=== PATIENT | female | born 1950 | race Caucasian/White ===

== ENCOUNTER 2019-02-03 21:19 | Inpatient (IN) ==
[2019-02-04] MEDS ORDERED: CARBOHYDRATES FOR HYPOGLYCEMIA PO PRN (00:16)
[2019-02-04] MEDS ORDERED: MAGNESIUM HYDROXIDE SUSP 30 ML UDC PO PRN (00:16)
[2019-02-04] MEDS ORDERED: GLUCAGON FOR INJ 1 MG VIAL SQ PRN (00:16)
[2019-02-04] MEDS ORDERED: NITROGLYCERIN SL 0.4 MG/TAB TAB SL PRN (00:16)
[2019-02-04] MEDS ORDERED: GLUCOSE 10 TABS/TUBE PO PRN (00:16)
[2019-02-04] MEDS ORDERED: DEXTROSE 50% 50 ML SYRINGE IV PRN (00:16)
[2019-02-04] MEDS ORDERED: POLYETHYLENE (MIRALAX) 17 GM PACK PO PRN (00:16)
[2019-02-04] MEDS ORDERED: ALUMINUM/MAGNESIUM SUSP 30 ML UDC PO PRN (00:16)
[2019-02-04] MEDS ORDERED: GLUCOSE 40% GEL 15 GM TUBE PO PRN (00:16)
[2019-02-04] MEDS ORDERED: ONDANSETRON INJ 2 MG/ML 2 ML VIAL IV PRN (00:16)
[2019-02-04 00:54] LABS: Hematocrit (blood only) 30.1 % (37-47); Hemoglobin 10.1 g/dL (12.0-16.0); Mean Corpuscular Hemoglobin 32.3 pg (25-34); Mean Corpuscular Volume 96.2 fL (80-100); Mean Platelet Volume 10.2 fL (7.4-10.4); Platelet Count 107 K/uL (130-400); RDW Coefficient of Variation 12.7 % (11.5-14.5); RDW Standard Deviation 44.4 fL (36.4-46.3); Red Blood Count 3.13 M/uL (4.2-5.4)
[2019-02-04 00:58] LABS: Mean Corpuscular Hgb Conc 33.6 g/dL (32-36)
[2019-02-04] MEDS ORDERED: PIPERACILL/TAZOBAC CONSULT ACTIVE PRN (01:17)
[2019-02-04] MEDS ORDERED: VANCOMYCIN CONSULT ACTIVE PRN (01:17)
[2019-02-04] MEDS ORDERED: PIPERACILLIN/TAZOBACTAM 4.5 GM in DEXTROSE 5% 100 ML IV ONE (01:17)
[2019-02-04 01:24] LABS: Immature Granulocytes # (auto) 0.06 K/uL (0.00-0.02); Lymphocytes # (auto) 1.53 K/uL (1.2-3.4); Lymphocytes % (auto) 24.3 %; Monocytes # (auto) 0.61 K/uL (0.11-0.59); Monocytes % (auto) 9.7 %
[2019-02-04 01:29] LABS: Albumin Globulin Ratio 0.7 (0.9-2); Albumin Level 3.1 gm/dl (3.4-5.0); BUN Creatinine Ratio 17.9 (10-20); Bilirubin,Total 0.5 mg/dl (0.2-1); Calcium 8.2 mg/dl (8.5-10.1); Creatinine Clr Calc Pharmacy 24.1 ml/min; Est GFR (African American) 24.3; Globulin 4.7 gm/dl (2.5-4.0); Magnesium 1.9 mg/dl (1.8-2.4); Total Protein 7.8 gm/dl (6.4-8.2); Troponin I 1.2 ng/ml (0-0.045)
[2019-02-04] MEDS ORDERED: NovoLIN-R INSULIN PER UNIT CHARGE IV STA ×2 (01:41→04:11)
[2019-02-04 01:42] LABS: Beta-Hydroxybutyrate 4.65 mg/dl (0.2-2.81)
[2019-02-04] MEDS ORDERED: VANCOMYCIN HCL 1,500 MG in SODIUM CHLORIDE 0.9% 500 ML IV ONE (01:45)
[2019-02-04] MEDS ORDERED: CALCIUM GLUCONATE 10% 1,000 MG in SODIUM CHLORIDE 0.9% 50 ML IV STA (01:49)
[2019-02-04] MEDS ORDERED: SODIUM CHLORIDE 0.9% 1000ML 1,000 ML IV SCH (02:00)
[2019-02-04] MEDS ORDERED: INSULIN HUMAN REGULAR PER UNIT 8 UNITS in SYRINGE 7.92 ML IV ONE ×2 (02:00→04:15)
[2019-02-04 02:10] LABS: iSTAT Allen Test Pass; iSTAT Arterial Blood Gas HCO3 20 meg/L (19-24); iSTAT Arterial Blood Gas pCO2 37 mmHg (35-46); iSTAT Arterial Blood Gas pH 7.33 (7.35-7.45); iSTAT Arterial Blood Gas pO2 56 mmHg (80-95); iSTAT Carbon Dioxide 21 mEq/l (24-31); iSTAT Site R Radial
[2019-02-04 02:41] LABS: Calcium 8.3 mg/dl (8.5-10.1); Est GFR (African American) 24.2; Est GFR (Non-African American) 20.9; Potassium 5.6 mmol/L (3.5-5.1)
[2019-02-04 02:43] LABS: Troponin I 1.23 ng/ml (0-0.045)
[2019-02-04 02:57] LABS: Beta-Hydroxybutyrate 5.54 mg/dl (0.2-2.81)
[2019-02-04] MEDS ORDERED: HALOPERIDOL LACTATE 5 MG/ML 1 ML VIAL IM STA (04:11)
[2019-02-04] MEDS ORDERED: INFLUENZA ADMINISTRATION CHARGE ONE (06:00)
[2019-02-04] MEDS ORDERED: PNEUMOCOCCAL ADMINISTRATION CHARGE ONE (06:00)
[2019-02-04] MEDS ORDERED: PNEUMOCOCCAL POLYSACCHARIDES 25 MCG/0.5 ML VIAL/SYR IM ONE (06:00)
[2019-02-04] MEDS ORDERED: INFLUENZA VACCINE HIGH DOSE 65+ 0.5 ML SYR IM ONE (06:00)
[2019-02-04 06:10] LABS: Estimated Average Glucose 171 mg/dl; Hemoglobin A1C 7.6 % (4.5-5.6)
--- NOTE | 2019-02-04 06:18 | History & Physical Report ---
Date of Service February 04, 2019 Assessment & Plan (1) Pneumonia involving right lung: Pneumonia involving right middle and right lower lobe/hypoxia- Place on vancomycin IV per pharmacokinetic monitoring. Place on Zosyn 4.5 g IV every 8 hours. Duonebs every 4 hours while awake and every 2 hours when necessary. ABG: pH 7.33, PCO2 37, PO2 56 and O2 saturation 87%, on 15 L mask. O2 saturation on ABG is consistent with measured pulse ox. Patient is changed to BiPAP 03/13/1951 percent, with pulse ox increased to 95%. Taper as symptoms improve. Present on Admission?: Yes (2) NSTEMI (non-ST elevated myocardial infarction): NSTEMI/ischemic cardiomyopathy history/hypertension- Troponin from [facility] was reported at 0.126. Entrance troponin at [facility] has increased to 1.230. The patient will be admitted to telemetry for serial cardiac enzymes, serial EKG's, cardiac rhythm monitoring and a 2-D echocardiogram with Dopplers. Unclear how much of this is secondary to hypoxia or a primary event. Hold amlodipine 5 mg daily. Continue lisinopril 5 mg p.o. daily. Increase metoprolol succinate from 25 mg p.o. twice daily to 50 mg p.o. twice daily Present on Admission?: Yes (3) Hypertension: See above Present on Admission?: Yes (4) Ischemic cardiomyopathy: See above Present on Admission?: Yes (5) Hyperglycemia due to type 2 diabetes mellitus: Glucose was 443 upon admission, and following successive regular insulin IV was decreased to 231. Patient will be placed on a heart healthy diabetic diet. Hold NPH and 70/30 that the patient usually uses. Place on Accu-Cheks before meals and at bedtime with NovoLog coverage per scale. Present on Admission?: Yes (6) Chronic kidney disease, stage 3: Creatinine stable 2.3 range, follow serially. Present on Admission?: Yes (7) Hyperkalemia: Potassium 6.0 upon admission laboratories. Given regular insulin 8 mg IV, and calcium gluconate 1 g IV, with follow-up with follow-up potassium at 5.6. Patient be given additional 8 units of regular insulin IV, normal saline at 100 mils per hour, and repeat laboratories later on this morning. Present on Admission?: Yes (8) GERD (gastroesophageal reflux disease): Continue famotidine 20 mg daily Present on Admission?: Yes (9) Anemia: Hemoccult all stools, follow serial laboratories. Present on Admission?: Yes (10) Anxiety and depression: Continue paroxetine 40 mg daily, and gabapentin 100 mg p.o. daily Present on Admission?: Yes (11) Hyperlipidemia LDL goal <70: Continue lovastatin 40 mg p.o. daily. Check a fasting lipid panel Present on Admission?: Yes History of Present Illness Chief Complaint: The patient initially presented to the emergency department at [facility] with complaint of generalized weakness and headache x4 days, and decreased oral intake both liquids and solids. Primary Care Provider: Steve Pinto MD The patient is a 68-year-old female, seen in transfer from [facility] emergency department, where she presented with the above symptoms. Work-up at that time included elevated glucose of 456, elevated troponin of 0.126, and a mild level of hypoxia requiring 2 L of oxygen to maintain saturation of 95%. When patient was seen at arrival at [facility], she was on 15 L mask, with pulse ox in the 88% range. She was somewhat anxious, but overall comfortable. Initial admission orders were placed, and stat laboratories including CBC with differential, chemistry profile, magnesium level, and troponin level were ordered. Studies including stat chest x-ray, and EKG were also ordered. Allergies Allergy/AdvReac Type Severity Reaction Status Date / Time No Known Allergies Allergy Unverified 09/12/16 11:36 Home Medications Home Medications Medication Instructions Recorded Confirmed Type amlodipine 5 mg PO DAILY 02/04/19 02/04/19 History benzonatate 100 mg PO DAILY 02/04/19 02/04/19 History ergocalciferol (vitamin D2) 50,000 unit PO DAILY 02/04/19 02/04/19 History famotidine 20 mg PO DAILY 02/04/19 02/04/19 History ferrous sulfate 325 mg PO DAILY 02/04/19 02/04/19 History furosemide 20 mg PO DAILY 02/04/19 02/04/19 History gabapentin 100 mg PO DAILY 02/04/19 02/04/19 History insulin NPH and regular human See Rx Instructions .ROUTE .COMPLEX 02/04/19 History [Novolin 70/30 U-100 Insulin] lisinopril 5 mg PO DAILY 02/04/19 02/04/19 History lovastatin 40 mg PO DAILY 02/04/19 02/04/19 History metoprolol succinate 25 mg PO BID 02/04/19 02/04/19 History paroxetine HCl 40 mg PO DAILY 02/04/19 02/04/19 History Past Med/Surg History Social History Preferred Language: Chinese Communication Ability: Effective 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 Beliefs That Will Affect Care: None Current Living Situation: Family Other Information That Helps Us Care for You: No Feels Safe at Home: Yes Safety Concerns: Feels Safe At This Time Smoking Status: Never smoker Hx Alcohol Use: No Hx Substance Use: No Review of Systems Review of Systems: The patient denies chest pain, palpitations, cough, lower extremity swelling, sore throat, fevers, chills, sweats, vomiting, diarrhea , constipation, abdominal pain, pelvic pain, blood in urine or stool, dysuria, urinary frequency or urgency, lightheadedness, dizziness, headache, memory loss, loss of consciousness, rash, abnormal bruising or bleeding, imbalance, focal weakness, numbness or tingling in arms or legs, generalized arthralgias or myalgias, back or neck pain, or night sweats. The review of systems is otherwise negative other than for that already noted above, and at least 10 systems have been reviewed. Physical Exam Physical Exam: The patient is awake, alert and oriented 3, normocephalic and atraumatic, lying in bed and in mild respiratory distress. HEENT--PERRL, EOMI, mucous membranes and oropharynx dry. Neck--supple. No JVD. No bruits. Thyroid normal, trachea midline, no adenopathy. Heart--normal S1 and S2. No murmurs, rubs or gallops. Lungs--decreased breath sounds right base. Mild respiratory distress, no accessory muscle use. Abdomen--normal bowel sounds and soft. Nontender. Nondistended, no hernias or masses, no organomegaly. Extremities--no cyanosis or clubbing. No edema. Dermatologic--normal skin turgor, normal color, no rash. Neurologic--cranial nerves II through XII grossly intact. Rheumatologic--normal range of motion. Psychiatric--mildly anxious Results & Data Vital Signs (Past 12 Hours) Vital Signs Temp Pulse Pulse Resp BP Pulse Ox 02/04/19 03:57 98.2 F 104 H 22 129/83 95 02/04/19 02:49 102 H 02/04/19 02:05 98 H 19 94 02/04/19 00:29 98.8 F 106 H 23 127/90 88 L Laboratory Results Laboratory Results WBC 6.30 K/uL (4.8-10.8) 02/04/19 00:45 RBC 3.13 M/uL (4.2-5.4) L 02/04/19 00:45 Hgb 10.1 g/dL (12.0-16.0) L 02/04/19 00:45 Hct 30.1 % (37-47) L 02/04/19 00:45 MCV 96.2 fL (80-100) 02/04/19 00:45 MCH 32.3 pg (25-34) 02/04/19 00:45 MCHC 33.6 g/dL (32-36) 02/04/19 00:45 RDW Std Deviation 44.4 fL (36.4-46.3) 02/04/19 00:45 RDW Coeff of Nevaeh 12.7 % (11.5-14.5) 02/04/19 00:45 Plt Count 107 K/uL (130-400) L 02/04/19 00:45 MPV 10.2 fL (7.4-10.4) 02/04/19 00:45 Immature Gran % (Auto) 1.0 % 02/04/19 00:45 Neut % (Auto) 65.0 % 02/04/19 00:45 Lymph % (Auto) 24.3 % 02/04/19 00:45 Real % (Auto) 9.7 % 02/04/19 00:45 Eos % (Auto) 0.0 % 02/04/19 00:45 Baso % (Auto) 0.0 % 02/04/19 00:45 Immature Gran # (Auto) 0.06 K/uL (0.00-0.02) H 02/04/19 00:45 Neut # (Auto) 4.10 K/uL (1.4-6.5) 02/04/19 00:45 Lymph # (Auto) 1.53 K/uL (1.2-3.4) 02/04/19 00:45 Real # (Auto) 0.61 K/uL (0.11-0.59) H 02/04/19 00:45 Eos # (Auto) 0.00 K/uL (0-0.5) 02/04/19 00:45 Baso # (Auto) 0.00 K/uL (0-0.2) 02/04/19 00:45 Sample Site R Radial 02/04/19 02:00 POC pH 7.33 (7.35-7.45) L 02/04/19 02:00 POC pCO2 37 mmHg (35-46) 02/04/19 02:00 POC pO2 56 mmHg (80-95) L 02/04/19 02:00 POC HCO3 20 lyndsay/L (19-24) 02/04/19 02:00 POC Total CO2 21 mEq/l (24-31) L 02/04/19 02:00 POC Base Excess -6.0 lyndsay/L (-9-1.8) 02/04/19 02:00 POC ABG O2 Sat 87.0 % (90-95) L 02/04/19 02:00 Inderjit Test Pass 02/04/19 02:00 O2 Delivery Device Other 02/04/19 02:00 Sodium 132 mmol/L (136-145) L 02/04/19 01:57 Potassium 5.6 mmol/L (3.5-5.1) H 02/04/19 01:57 Chloride 102 mmol/L (98-107) 02/04/19 01:57 Carbon Dioxide 21 mmol/L (21-32) 02/04/19 01:57 Anion Gap 9.0 (3-11) 02/04/19 01:57 BUN 42 mg/dl (7-18) H 02/04/19 01:57 Creatinine 2.31 mg/dl (0.6-1.2) H 02/04/19 01:57 Est Cr Clr Drug Dosing 24.0 ml/min 02/04/19 01:57 Est GFR ( Amer) 24.2 02/04/19 01:57 Est GFR (Non-Af Amer) 20.9 02/04/19 01:57 BUN/Creatinine Ratio 18.0 (10-20) 02/04/19 01:57 Glucose 443 mg/dl (70-99) H* 02/04/19 01:57 POC Glucose 233 (70-99) H 02/04/19 05:34 Estimat Average Glucose 171 mg/dl 02/04/19 01:57 Hemoglobin A1c 7.6 % (4.5-5.6) H 02/04/19 01:57 Lactate 1.8 mmol/L (0.4-2.0) 02/04/19 01:57 Calcium 8.3 mg/dl (8.5-10.1) L 02/04/19 01:57 Magnesium 1.9 mg/dl (1.8-2.4) 02/04/19 00:45 Total Bilirubin 0.5 mg/dl (0.2-1) 02/04/19 00:45 AST 271 U/L (15-37) H 02/04/19 00:45 ALT 193 U/L (12-78) H 02/04/19 00:45 Alkaline Phosphatase 127 U/L (45-117) H 02/04/19 00:45 Troponin I 1.230 ng/ml (0-0.045) H* 02/04/19 01:57 Total Protein 7.8 gm/dl (6.4-8.2) 02/04/19 00:45 Albumin 3.1 gm/dl (3.4-5.0) L 02/04/19 00:45 Globulin 4.7 gm/dl (2.5-4.0) H 02/04/19 00:45 Albumin/Globulin Ratio 0.7 (0.9-2) L 02/04/19 00:45 Beta-Hydroxybutyric Acd 5.54 mg/dl (0.2-2.81) H 02/04/19 01:57 Hepatitis C Ab Screen Neg (Neg) 02/04/19 01:57 Code Status & VTE Plan Code Status Full code VTE Prophylaxis Plan VTE Prophylaxis will be ordered: Yes PG Care Time/CCT Total # of Minutes Spent Total Time Spent with Patient: Total time spent is greater than 50% in coordination of care (as documented) at patient's floor/unit and/or counseling patient:
[2019-02-04 06:25] LABS: BUN Creatinine Ratio 19.4 (10-20); Calcium 8.3 mg/dl (8.5-10.1); Creatinine Clr Calc Pharmacy 26.8 ml/min; Est GFR (African American) 27.6; Est GFR (Non-African American) 23.8; Potassium 4.1 mmol/L (3.5-5.1); Troponin I 1.48 ng/ml (0-0.045)
--- NOTE | 2019-02-04 06:55 | XRay Report ---
XR chest 1V portable CLINICAL HISTORY: hypoxia COMPARISON STUDY: Chest radiograph September 13, 2016 FINDINGS: Right subclavian pacer/AICD is in place. There is no pneumothorax. There are suspected smal l bilateral pleural effusions. Interstitial thickening indicates pulmonary edema. Bibasilar opacities , greater on the right are noted. Cardiomediastinal silhouette is stable. IMPRESSION: 1. Mild interstitial pulmonary edema. 2. Small bilateral pleural fusions with bibasilar opacities, right greater than left. Radiographic fo llow-up is recommended. Electronically signed by: Josr Gaines M.D. 02/04/2019 6:54 AM
[2019-02-04] MEDS: ALBUT/IPRATROP 3MG/0.5MG NEB 3 ML VIAL NEB SCH ×4 (07:02→18:39)
[2019-02-04] MEDS ORDERED: PIPERACILLIN/TAZOBACTAM 3.375 GM in DEXTROSE 5% 100 ML IV SCH (08:00)
[2019-02-04] MEDS ORDERED: VANCOMYCIN HCL 1,000 MG in SODIUM CHLORIDE 0.9% 250 ML IV SCH (09:00)
[2019-02-04] MEDS: INSULIN ASPART 100 UNITS/ML 3 ML PEN SC SCH ×4 (09:50→20:42)
[2019-02-04] MEDS: lisinopriL 5 MG TAB PO SCH (09:56)
[2019-02-04] MEDS: ASPIRIN 81 MG ECTAB PO SCH (09:56)
[2019-02-04] MEDS: METOPROLOL SUCC 25MG EXT REL TAB PO SCH ×2 (09:56→20:42)
[2019-02-04] MEDS: LOVASTATIN 20 MG TAB PO SCH (09:56)
[2019-02-04] MEDS: FERROUS SULFATE 325 MG TAB PO SCH (10:01)
[2019-02-04] MEDS: FAMOTIDINE 20 MG TAB PO SCH (10:01)
[2019-02-04] MEDS: PARoxetine HCl 20 MG TAB PO SCH (10:01)
[2019-02-04] MEDS: GABAPENTIN 100 MG CAP PO SCH (10:01)
--- NOTE | 2019-02-04 11:17 | Cardiology Consultation ---
Date of Consultation February 04, 2019 Assessment & Plan (1) Acute on chronic HFrEF (heart failure with reduced ejection fraction): Per review of outpatient records, the patient has stage IV chronic kidney disease at baseline, labs performed as an outpatient on 12/04/2018 revealed creatinine of 1.8, calculated GFR of 29.2. On admission creatinine was 2.3, and has slightly improved to 2.07. She also has a chronic anemia, hemoglobin was 11.4 on 12/04/2018, and 10.1 as of today. She is ill in appearance, and unable to provide adequate history regarding what brought her to the hospital. She is hypoxic with pulse oximetry in the 88% range on high flow oxygen. She has no fever, no leukocytosis. I attempted to call the patient's daughter, Amalia, but no one answered.'s of the details regarding her recent illness are very ill-defined. I am not certain what her baseline mental status is. Her echocardiogram images from first and this morning were reviewed on a preliminary basis. Severe left ventricular systolic function is noted. At least mild aortic valve stenosis is present, but I need to look at the calculations in more detail on the appropriate workstation to make the determination of the severity of the aortic stenosis. At this time, I recommend stopping her IV fluids, and proceeding with a trial of furosemide for concerns that her hypoxia may very well be due to acute on chronic systolic heart failure with volume overload based on chest x-ray and clinical presentation. (2) NSTEMI (non-ST elevated myocardial infarction): Patient presented with a mild troponin elevation of 1.2, and this is trended up to 1.48. She denies any angina at present. Her EKG is not suggestive of acute intracoronary plaque rupture, and this could very well be demand ischemia. Given her baseline anemia, I am going to hold off on unfractionated heparin infusion at present. (3) Pneumonia involving right lung: Continue Zosyn, check procalcitonin level. (4) Delirium, acute: Is difficult to determine what her baseline mental status is at present, unable to find family members at present to get a better sense of how she has been doing. We will continue to follow. (5) Chronic renal disease, stage IV: Monitor kidney function. History of Present Illness Attending Physician: Gerber Montano, DO History of Present Illness Radha Ribera is a 68 year old female seen in cardiology consultation per the request of Dr Montano of the [facility] hospitalist service for the evaluation of shortness of breath, non-ST segment elevation myocardial infarction, and history of ischemic cardiomyopathy. The patient's primary rock contractor is Dr. Charles of our practice. Her most recent outpatient follow-up visit had been in August 2018 at which time stable cardiac signs and symptoms were noted. Patient was ill in appearance when I had seen and examined her in room 207. She was being transitioned from BiPAP to a high flow oxygen mask 8 L/min. She looked tired. She was able to provide a history about what is been going on recently. She denies any chest discomfort. She states that she lives with her daughter. Review of records, it sounds like the patient presented with generalized illness including headache for several days. She has tentatively been diagnosed with respiratory insufficiency and pneumonia. Past Cardiac History: 1. Presumed ischemic cardiomyopathy, had undergone nuclear stress test on 03/27/2016 revealing fixed anterior, anteroseptal perfusion defect consistent with scar, and calculated ejection fraction of 33%. 2. She subsequently underwent implantation of a single-chamber [employer] AICD for primary prevention of sudden cardiac in September 2016. 3. Most recent echocardiogram prior today have been performed at [facility] on 06/16/2018, the report describes severe global hypokinesis with an ejection fraction of 30%, mild aortic valve stenosis The device was most recently interrogated as an outpatient on 11/27/2018 with normal function -Per outpatient chart, patient had reportedly declined cardiac catheterization at the time of work-up of her cardiomyopathy. She has been stable on medication therapy for several years. Allergies Allergy/AdvReac Type Severity Reaction Status Date / Time No Known Allergies Allergy Unverified 09/12/16 11:36 Home Medications Home Medications Medication Instructions Recorded Confirmed Type amlodipine 5 mg PO DAILY 02/04/19 02/04/19 History benzonatate 100 mg PO DAILY 02/04/19 02/04/19 History ergocalciferol (vitamin D2) 50,000 unit PO DAILY 02/04/19 02/04/19 History famotidine 20 mg PO DAILY 02/04/19 02/04/19 History ferrous sulfate 325 mg PO DAILY 02/04/19 02/04/19 History furosemide 20 mg PO DAILY 02/04/19 02/04/19 History gabapentin 100 mg PO DAILY 02/04/19 02/04/19 History insulin NPH and regular human See Rx Instructions .ROUTE .COMPLEX 02/04/19 History [Novolin 70/30 U-100 Insulin] lisinopril 5 mg PO DAILY 02/04/19 02/04/19 History lovastatin 40 mg PO DAILY 02/04/19 02/04/19 History metoprolol succinate 25 mg PO BID 02/04/19 02/04/19 History paroxetine HCl 40 mg PO DAILY 02/04/19 02/04/19 History Patient History Social History Preferred Language: Malawian Communication Ability: Impaired Pre Parole Counseling Aide Required: No Beliefs That Will Affect Care: None Current Living Situation: Family Other Information That Helps Us Care for You: No Feels Safe at Home: Yes Safety Concerns: Feels Safe At This Time Smoking Status: Never smoker Hx Alcohol Use: No Hx Substance Use: No Review of Systems Review of Systems: Unobtainable due to reduced consciousness Physical Exam Physical Exam: Temp Pulse Resp BP Pulse Ox 36.5 C 102 H 18 139/72 88 L 02/04/19 07:51 02/04/19 11:00 02/04/19 11:00 02/04/19 07:51 02/04/19 11:00 Constitutional: + ill appearing Respiratory: Auscultation: + diminished lung sounds (Coarse breath sounds bilaterally at the bases); no crackles, no rales and no rhonchi Cardiovascular: Rate/Rhythm: regular rate Heart Sounds: + murmur (I/ systolic murmur) Vessels: no JVD Extremities: no edema Gastrointestinal (Abdomen): normal bowel sounds, soft, nontender, no hepatosplenomegaly Neurologic: Confused, unable to provide history, follows commands and moves all 4 extremities Results & Data Vital Signs (Past 12 Hours) Vital Signs Temp Pulse Pulse Resp BP Pulse Ox 02/04/19 11:00 102 H 18 88 L 02/04/19 07:51 36.5 C 108 H 33 H 139/72 89 L 02/04/19 07:06 102 H 20 97 02/04/19 07:03 102 H 20 97 02/04/19 03:57 36.8 C 104 H 22 129/83 95 02/04/19 02:49 102 H 02/04/19 02:05 98 H 19 94 02/04/19 00:29 37.1 C 106 H 23 127/90 88 L Laboratory Results Cardiac Enzymes 02/04/19 02/04/19 02/04/19 Range/Units 00:45 01:57 05:27 AST 271 H (15-37) U/L Troponin I 1.200 H* 1.230 H* 1.480 H* (0-0.045) ng/ml CBC 02/04/19 Range/Units 00:45 WBC 6.30 (4.8-10.8) K/uL RBC 3.13 L (4.2-5.4) M/uL Hgb 10.1 L (12.0-16.0) g/dL Hct 30.1 L (37-47) % Plt Count 107 L (130-400) K/uL Neut # (Auto) 4.10 (1.4-6.5) K/uL Lymph # (Auto) 1.53 (1.2-3.4) K/uL [place] # (Auto) 0.61 H (0.11-0.59) K/uL Eos # (Auto) 0.00 (0-0.5) K/uL Baso # (Auto) 0.00 (0-0.2) K/uL Comprehensive Metabolic Panel 02/04/19 02/04/19 02/04/19 Range/Units 00:45 01:57 05:27 Sodium 134 L 132 L 137 (136-145) mmol/L Potassium 6.0 H 5.6 H 4.1 D (3.5-5.1) mmol/L Chloride 103 102 107 (98-107) mmol/L Carbon Dioxide 22 21 21 (21-32) mmol/L BUN 41 H 42 H 40 H (7-18) mg/dl Creatinine 2.30 H 2.31 H 2.07 H (0.6-1.2) mg/dl Glucose 453 H* 443 H* 231 H (70-99) mg/dl Calcium 8.2 L 8.3 L 8.3 L (8.5-10.1) mg/dl AST 271 H (15-37) U/L ALT 193 H (12-78) U/L Alkaline Phosphatase 127 H (45-117) U/L Total Protein 7.8 (6.4-8.2) gm/dl Albumin 3.1 L (3.4-5.0) gm/dl Intake and Output 02/03/19 02/04/19 02/04/19 22:59 06:59 14:59 Intake Total 710 / 710 Output Total 350 / 350 Balance 360 / 360 Intake: IV 710 / 710 Calcium Gluconate 10% 1,000 mg 60 / 60 In Nss 50 ml @ 240 mls/hr IV NOW STA Rx#:[id number] Zosyn 4.5 gm In D5 100 ml @ 240 120 / 120 mls/hr IV ONE ONE Rx#:[id number] Vancomycin HCl 1,500 mg In Nss 530 / 530 500 ml @ 200 mls/hr IV ONE ONE Rx#:[id number] Output: Urine Amount (Catheter) 350 / 350 [place]/Indwelling 350 / 350 Other: Weight 72.7 kg Diagnostic Findings EKG performed this morning at 02/04/2019 at 8:38 AM revealed sinus rhythm with mild inferior and lateral repolarization changes that were new compared to June,
[2019-02-04] MEDS ORDERED: FUROSEMIDE 20 MG in SYRINGE 0 ML IV STA (12:06)
[2019-02-04] MEDS ORDERED: HEPARIN SOD 5,000 UNIT/0.5 ML VIAL SQ STA (12:41)
--- NOTE | 2019-02-04 13:04 | Communication Note ---
Date of Service: February 04, 2019 Paged by RN, pt had bleeding last evening. SQ heparin therefore discontinued.
[2019-02-04] MEDS: INSULIN GLARGINE SOLOSTAR 100 UNITS/ML 3 ML PEN SC SCH (13:33)
[2019-02-04] MEDS: ACETAMINOPHEN 325 MG TAB PO PRN (13:38)
--- NOTE | 2019-02-04 16:48 | History & Physical Bridge Note ---
Date of Service February 04, 2019 History & Physical Bridge Note I have examined the patient, reviewed the History & Physical and in the interval since the performance of the History & Physical I have noted the following changes of clinical significance: patient titrated off of BIPAP late this morning breathing comfortably on Oxymask the rest of the day, no distress, saturations in [address] Vyas, her EF is poor 25%, h/o aortic stenosis, he gave her a dose of Lasix 20mg IV, not much diuresis difficult to determine if she is dry or wet, not a great historian she did go to her PCP two days ago for illness, diagnosed with UTI, never filled antibiotic script her WBC is normal, procalcitonin mildly high but could be attributed to CKD no fever, vitals stable d/w pharmacy, no need for broad spectrum antibiotics, will place on Rocephin and Doxycycline family updated several times by the RN today may require BiPAP this evening if saturations drop repeat labs and CXR in the morning
[2019-02-04] MEDS: cefTRIAXone SODIUM 1,000 MG in DEXTROSE 5% 50 ML IV SCH (18:22)
[2019-02-04] MEDS: DOXYCYCLINE HYCLATE 100 MG in DEXTROSE 5% 100 ML IV SCH (20:44)
[2019-02-04] MEDS ORDERED: HEPARIN SOD 5,000 UNIT/0.5 ML VIAL SQ SCH (21:00)
[2019-02-05] MEDS: ALBUT/IPRATROP 3MG/0.5MG NEB 3 ML VIAL NEB SCH ×2 (07:16→11:12)
--- NOTE | 2019-02-05 07:35 | XRay Report ---
XR chest 1V portable CLINICAL HISTORY: Hypoxia COMPARISON STUDY: Chest radiograph February 04, 2019. FINDINGS: Right subclavian pacer/AICD is in place. Cardiac size is normal. Mediastinal contours are n ormal. There is no pneumothorax. Small bilateral pleural effusions with bibasilar opacities persist. Pulmonary edema has slightly improved. IMPRESSION: 1. Mild improvement in pulmonary edema. 2. Persistent small bilateral pleural effusions with bibasilar opacities which may reflect atelectasi s or consolidation. Electronically signed by: Josr Gaines M.D. 02/05/2019 7:34 AM
[2019-02-05 08:03] LABS: Hematocrit (blood only) 27.8 % (37-47); Hemoglobin 9.4 g/dL (12.0-16.0); Mean Corpuscular Hemoglobin 32.5 pg (25-34); Mean Corpuscular Hgb Conc 33.8 g/dL (32-36); Mean Corpuscular Volume 96.2 fL (80-100); Mean Platelet Volume 10.1 fL (7.4-10.4); Platelet Count 109 K/uL (130-400); RDW Coefficient of Variation 12.7 % (11.5-14.5); RDW Standard Deviation 44.8 fL (36.4-46.3); Red Blood Count 2.89 M/uL (4.2-5.4); White Blood Count 5.67 K/uL (4.8-10.8)
[2019-02-05] MEDS: INSULIN ASPART 100 UNITS/ML 3 ML PEN SC SCH ×4 (08:03→21:42)
[2019-02-05] MEDS: LOVASTATIN 20 MG TAB PO SCH (08:04)
[2019-02-05] MEDS: INSULIN GLARGINE SOLOSTAR 100 UNITS/ML 3 ML PEN SC SCH (08:04)
[2019-02-05] MEDS: FAMOTIDINE 20 MG TAB PO SCH (08:04)
[2019-02-05] MEDS: GABAPENTIN 100 MG CAP PO SCH (08:05)
[2019-02-05] MEDS: PARoxetine HCl 20 MG TAB PO SCH (08:05)
[2019-02-05] MEDS: ASPIRIN 81 MG ECTAB PO SCH (08:05)
[2019-02-05] MEDS: lisinopriL 5 MG TAB PO SCH (08:05)
[2019-02-05] MEDS: FERROUS SULFATE 325 MG TAB PO SCH (08:05)
[2019-02-05] MEDS: METOPROLOL SUCC 25MG EXT REL TAB PO SCH (08:05)
[2019-02-05] MEDS: DOXYCYCLINE HYCLATE 100 MG in DEXTROSE 5% 100 ML IV SCH ×2 (08:19→20:14)
[2019-02-05 08:24] LABS: Eosinophils # (auto) 0.01 K/uL (0-0.5); Eosinophils % (auto) 0.2 %; Immature Granulocytes # (auto) 0.03 K/uL (0.00-0.02); Immature Granulocytes % (auto) 0.5 %; Lymphocytes # (auto) 1.09 K/uL (1.2-3.4); Lymphocytes % (auto) 19.2 %; Monocytes # (auto) 0.47 K/uL (0.11-0.59); Monocytes % (auto) 8.3 %; Neutrophils # (auto) 4.07 K/uL (1.4-6.5); Neutrophils % (auto) 71.8 %
[2019-02-05 08:29] LABS: Albumin Level 3.1 gm/dl (3.4-5.0); BUN Creatinine Ratio 19.7 (10-20); Calcium 8.3 mg/dl (8.5-10.1); Creatinine Clr Calc Pharmacy 26.3 ml/min; Est GFR (Non-African American) 23.3; Potassium 4.6 mmol/L (3.5-5.1)
[2019-02-05 08:45] LABS: Albumin Globulin Ratio 0.7 (0.9-2); Bilirubin,Total 0.5 mg/dl (0.2-1); Globulin 4.6 gm/dl (2.5-4.0); Total Protein 7.7 gm/dl (6.4-8.2); Troponin I 0.6 ng/ml (0-0.045)
--- NOTE | 2019-02-05 10:02 | Cardiology Progress Note ---
Date of Service February 05, 2019 Assessment & Plan (1) Acute on chronic HFrEF (heart failure with reduced ejection fraction): Echocardiogram performed 02/04/2019 revealed an interval decline in her LVEF compared to June of this year, down to 20 to 25%. At least mild aortic valve stenosis is present. Her volume status is difficult to assess from a clinical standpoint, and also in speaking to her family, In the patient, it is difficult to determine how she has been doing from a heart failure/shortness of breath standpoint for the last few months As it does not appear that the family members or the patient have a clear insight into her typical baseline from both the cardiopulmonary and Logic standpoint. Continue prior to hospital dose of metoprolol. Her creatinine is relatively stable for her, but given need for cautious diuresis, I am going to hold off on her home lisinopril in an effort to optimize her kidney function. Proceed with low-dose furosemide 20 mg now and another dose of 2100, will hold off on next dose until I see her renal function panel tomorrow. (2) NSTEMI (non-ST elevated myocardial infarction): Patient without anginal symptoms. I do not think her presentation is suggestive of an acute intracoronary plaque r upture, but I am concerned that she has an underlying ischemic cardiomyopathy. Her troponin elevation Has been to 1.4, has trended down to 0.6 today. She is not on an unfractioned heparin or DVT prophylaxis heparin due to bleeding. (3) Delirium, acute: Mental status is improved. She still however does have a cognitive impairment. Difficult to ascertain baseline based on conversation with patient and her family members. (4) Chronic renal disease, stage IV: Cautious diuretic use, hold lisinopril. Continue to follow kidney function closely. (5) Pneumonia involving right lung: Patient is afebrile, I doubt that this is influenza. Chest x-ray findings this morning suggestive of CHF. Procalcitonin was mildly elevated. Continue empiric antibiotics for now. Subjective CC: follow up Shortness of breath,Confusion Subjective: Patient's oxygenation improved, pulse ox 99% on 9 L of oxy mask at present. Review of Systems Review of Systems: All systems reviewed & are unremarkable except as noted in HPI & below Physical Exam Physical Exam: Temp Pulse Resp BP Pulse Ox 36.5 C 95 H 18 120/76 99 02/05/19 04:08 02/05/19 07:21 02/05/19 07:21 02/05/19 04:08 02/05/19 07:21 Constitutional: + ill appearing No acute distress, appears much improved compared to 02/04/2019 Respiratory: Auscultation: + diminished lung sounds (Decreased breath sounds the bases, no rales rhonchi or wheeze) Cardiovascular: Rate/Rhythm: + tachycardic Heart Sounds: + murmur (1/6 systolic murmur) Vessels: no JVD Extremities: + edema (trace tibial , ankel edema) Neurologic: PERRL, EOMI, accommodation nl, no face palsy, no dysarthria Patient oriented to place today, she was able to introduce me to her daughter. She remains with some degree of confusion, however she is certainly much improved compared to yesterday Results & Data Vital Signs (Past 12 Hours) Vital Signs Temp Pulse Resp BP Pulse Ox 02/05/19 07:21 95 H 18 99 02/05/19 04:08 36.5 C 98 H 18 120/76 90 02/04/19 23:53 37.5 C 103 H 20 117/59 L 90
[2019-02-05] MEDS ORDERED: FUROSEMIDE 20 MG in SYRINGE 0 ML IV SCH ×2 (10:15→21:00)
[2019-02-05] MEDS ORDERED: HALOPERIDOL LACTATE 5 MG/ML 1 ML VIAL IM STA ×2 (10:36→18:20)
--- NOTE | 2019-02-05 11:38 | Communication Note ---
Date of Service: February 05, 2019 Sinus tachycardia at 101 bpm noted. Concerned about pt's risk of going in to AF. Home dose of metoprolol succinate 25 mg BID had been increased to 50 mg BID on admission. Will change to short acting metoprolol tartrate 25 mg TID and titrate as tolerated for more rapid effect and ease of titration. shelter succinate is the preferred formulation given her low LVEF , and will transition back at conclusion of her acute illness.
[2019-02-05] MEDS ORDERED: INSULIN GLARGINE SOLOSTAR 100 UNITS/ML 3 ML PEN SC STA (11:39)
[2019-02-05] MEDS: METOPROLOL TARTRATE 25 MG TAB PO SCH ×3 (13:15→22:01)
[2019-02-05] MEDS ORDERED: ALBUT/IPRATROP 3MG/0.5MG NEB 3 ML VIAL NEB PRN (15:00)
--- NOTE | 2019-02-05 16:10 | Hospitalist Progress Note ---
Date of Service February 05, 2019 Assessment & Plan (1) Pneumonia involving right lung: possible Pneumonia involving right middle and right lower lobe/hypoxia- WBC normal for two days, minimal cough, no fever will continue Rocephin / Doxycycline for 5 day course, today is day 2 procalcitonin minimally high but likely due to CKD (2) NSTEMI (non-ST elevated myocardial infarction): type II NSTEMI, demand ischemia troponin 1.2, trended back down no reported chest pain, no ischemic changes on EKG no WM abnormalities on echo, although EF is more reduced at 25% no heparin drip due to some GI bleeding continue metoprolol 50mg BID (3) Hypertension: See above (4) Ischemic cardiomyopathy: EF is poorer than in the past, down to 25% Lasix 20mg IV BID follow up renal function in the morning holding lisinopril to try to allow for further diuresis (5) Hyperglycemia due to type 2 diabetes mellitus: Glucose was 443 upon admission, and following successive regular insulin IV was decreased to 231. on NPH 70/30 outptient will increase Lantus to 22 units daily, Novolog SS no hypoglycemic episodes (6) Hyperkalemia: Potassium 6.0 upon admission laboratories. Given regular insulin 8 mg IV, and calcium gluconate 1 g IV, with follow-up with follow-up potassium at 5.6. Patient be given additional 8 units of regular insulin IV, normal saline at 100 mils per hour, and repeat laboratories later on this morning. (7) GERD (gastroesophageal reflux disease): Continue famotidine 20 mg daily (8) Anemia: Hb stable at 9.4 (9) Anxiety and depression: Continue paroxetine 40 mg daily, and gabapentin 100 mg p.o. daily (10) Hyperlipidemia LDL goal <70: Continue lovastatin 40 mg p.o. daily. Check a fasting lipid panel (11) Chronic renal disease, stage IV: Cr stable at 2.1, electrolytes stable (12) Metabolic encephalopathy: underlying mental health disorder, very anxious per son, her memory has been spotty at times she lives with her daughter, family helps take care of her Subjective patient feeling better this morning, breathing easier, able to eat some breakfast she is having some confusion, pulling at her darby and IV lines WBC normal, Hb stable Cr elevated at 2.1 but at her baseline discussed situation with patient's son over the phone he said that she was complaining of lower abdominal pain, low back pain prior to taking her to ED at [facility] she did not really have a fever or chills at that time discussed with Dr. Vyas her EF is poor, will continue to diurese as long as her Cr allows CXR this morning shows improved pulmonary edema Review of Systems Review of Systems: All systems reviewed & are unremarkable except as noted in HPI & below Respiratory: + cough, + dyspnea and + dyspnea on exertion; no sputum production and no wheezing Cardiovascular: no chest pain, no syncope and no edema Gastrointestinal: no abdominal pain, no nausea, no vomiting, no constipation and no diarrhea/loose stools Physical Exam Constitutional: well developed, well nourished and + ill appearing Eyes: PERRL, conjunctivae normal, anicteric sclerae ENMT: external ear and nose normal, oropharynx normal Neck: trachea midline, no thyromegaly Respiratory: normal respiratory effort, lungs clear to auscultation (decreased BS in bases) Cardiovascular: Rate/Rhythm: regular rhythm and + tachycardic Heart Sounds: normal S1 and normal S2; no murmur Vessels: no JVD Extremities: normal capillary refill; no edema Gastrointestinal (Abdomen): normal bowel sounds, soft, nontender, no hepatosplenomegaly Musculoskeletal: no cyanosis or clubbing, extremities motor strength 5/5 Skin: no rashes, warm and dry Neurologic: patellar DTR's 2+ bilat, sensation intact and PERRL, EOMI, accommodation nl, no face palsy, no dysarthria Psychiatric: Orientation: alert, oriented to person and + guarded; + not oriented to place and + not oriented to time Lymphatic: no cervical or axillary lymphadenopathy Results & Data Vital Signs (Past 12 Hours) Vital Signs Temp Pulse Resp BP Pulse Ox 02/05/19 15:40 36.7 C 100 H 21 132/76 96 02/05/19 11:14 103 H 24 94 02/05/19 11:08 37.0 C 105 H 16 132/67 95 02/05/19 07:21 95 H 18 99 Laboratory Results Laboratory Results - last 24 hr 02/04/19 02/04/19 02/04/19 16:12 19:42 20:07 WBC RBC Hgb Hct MCV MCH MCHC RDW Std Deviation RDW Coeff of Nevaeh Plt Count MPV Immature Gran % (Auto) Neut % (Auto) Lymph % (Auto) [place] % (Auto) Eos % (Auto) Baso % (Auto) Immature Gran # (Auto) Neut # (Auto) Lymph # (Auto) [place] # (Auto) Eos # (Auto) Baso # (Auto) Sodium Potassium Chloride Carbon Dioxide Anion Gap BUN Creatinine Est Cr Clr Drug Dosing Est GFR ( Amer) Est GFR (Non-Af Amer) BUN/Creatinine Ratio Glucose POC Glucose 285 H 176 H Calcium Total Bilirubin AST ALT Alkaline Phosphatase Troponin I 1.130 H* Total Protein Albumin Globulin Albumin/Globulin Ratio 02/05/19 02/05/19 02/05/19 07:21 07:47 07:47 WBC 5.67 RBC 2.89 L Hgb 9.4 L Hct 27.8 L MCV 96.2 MCH 32.5 MCHC 33.8 RDW Std Deviation 44.8 RDW Coeff of Nevaeh 12.7 Plt Count 109 L MPV 10.1 Immature Gran % (Auto) 0.5 Neut % (Auto) 71.8 Lymph % (Auto) 19.2 [place] % (Auto) 8.3 Eos % (Auto) 0.2 Baso % (Auto) 0.0 Immature Gran # (Auto) 0.03 H Neut # (Auto) 4.07 Lymph # (Auto) 1.09 L [place] # (Auto) 0.47 Eos # (Auto) 0.01 Baso # (Auto) 0.00 Sodium 135 L Potassium 4.6 Chloride 105 Carbon Dioxide 20 L Anion Gap 10.0 BUN 42 H Creatinine 2.11 H Est Cr Clr Drug Dosing 26.3 Est GFR ( Amer) 27.0 Est GFR (Non-Af Amer) 23.3 BUN/Creatinine Ratio 19.7 Glucose 247 H POC Glucose 247 H Calcium 8.3 L Total Bilirubin 0.5 AST 143 H ALT 216 H Alkaline Phosphatase 113 Troponin I 0.600 H* Total Protein 7.7 Albumin 3.1 L Globulin 4.6 H Albumin/Globulin Ratio 0.7 L 02/05/19 11:21 WBC RBC Hgb Hct MCV MCH MCHC RDW Std Deviation RDW Coeff of Nevaeh Plt Count MPV Immature Gran % (Auto) Neut % (Auto) Lymph % (Auto) [place] % (Auto) Eos % (Auto) Baso % (Auto) Immature Gran # (Auto) Neut # (Auto) Lymph # (Auto) [place] # (Auto) Eos # (Auto) Baso # (Auto) Sodium Potassium Chloride Carbon Dioxide Anion Gap BUN Creatinine Est Cr Clr Drug Dosing Est GFR ( Amer) Est GFR (Non-Af Amer) BUN/Creatinine Ratio Glucose POC Glucose 313 H* Calcium Total Bilirubin AST ALT Alkaline Phosphatase Troponin I Total Protein Albumin Globulin Albumin/Globulin Ratio Medications Administered Current Inpatient Medications Acetaminophen (Tylenol) 650 mg PO Q4H PRN PRN Reason: Pain or Fever Stop: 03/06/19 00:15 Last Admin: 02/04/19 13:38 Dose: 650 mg Documented by: Al Hydrox/Mg Hydrox/Simethicone (Maalox) 15 ml PO Q4H PRN PRN Reason: Dyspepsia Stop: 03/06/19 00:15 Albuterol (Duoneb) 3 ml NEB Q4R PRN PRN Reason: Dyspnea Stop: 03/07/19 14:59 Aspirin (Ecotrin Ectab) 81 mg PO QAM [facility] Stop: 03/06/19 08:59 Last Admin: 02/05/19 08:05 Dose: 81 mg Documented by: Dextrose (Dextrose 50%) 25 - 50 ml IV UD PRN; Protocol PRN Reason: Hypoglycemia Protocol Stop: 03/06/19 00:15 Famotidine (Pepcid) 20 mg PO DAILY [facility] Stop: 03/06/19 08:59 Last Admin: 02/05/19 08:04 Dose: 20 mg Documented by: Ferrous Sulfate (Feosol) 325 mg PO DAILY [facility] Stop: 03/06/19 08:59 Last Admin: 02/05/19 08:05 Dose: 325 mg Documented by: Gabapentin (Neurontin) 100 mg PO DAILY [facility] Stop: 03/06/19 08:59 Last Admin: 02/05/19 08:05 Dose: 100 mg Documented by: Glucagon (Glucagen) 1 mg SQ UD PRN; Protocol PRN Reason: Hypoglycemia Protocol Stop: 03/06/19 00:15 Glucose (Glucose 40%) 15 - 30 gm PO UD PRN; Protocol PRN Reason: Hypoglycemia Protocol Stop: 03/06/19 00:15 Glucose (Dex4 Glucose) 4 - 8 tabs PO UD PRN; Protocol PRN Reason: Hypoglycemia Protocol Stop: 03/06/19 00:15 Doxycycline Hyclate 100 mg/ (Dextrose) 110 mls @ 50 mls/hr IV Q12 [facility]; Protocol Stop: 02/11/19 20:59 Last Infusion: 02/05/19 10:21 Dose: Infused Documented by: Ceftriaxone Sodium 1,000 mg/ (Dextrose) 50 mls @ 100 mls/hr IV Q24H [facility]; Protocol Stop: 02/11/19 17:59 Last Infusion: 02/04/19 18:53 Dose: Infused Documented by: Furosemide 20 mg/ Syringe 2 mls @ 4 mls/min IV TODAY@2100 [facility] Stop: 02/05/19 21:01 Insulin Aspart (Novolog Flexpen) 0 units SC ACHS [facility] Stop: 03/06/19 07:29 Last Admin: 02/05/19 12:10 Dose: 17 units Documented by: Insulin Glargine (Lantus Solostar Pen) 22 units SC QAM [facility] Stop: 03/08/19 08:59 Lovastatin (Mevacor) 40 mg PO DAILY [facility] Stop: 03/06/19 08:59 Last Admin: 02/05/19 08:04 Dose: 40 mg Documented by: Magnesium Hydroxide (Milk Of Magnesia) 30 ml PO Q12H PRN PRN Reason: Constipation Stop: 03/06/19 00:15 Metoprolol Tartrate (Lopressor) 25 mg PO TID [facility] Stop: 03/07/19 13:59 Last Admin: 02/05/19 13:15 Dose: 25 mg Documented by: Miscellaneous (Carbohydrates For Hypoglycemia) 15 - 30 gm PO UD PRN PRN Reason: Hypoglycemia Protocol Stop: 03/06/19 00:15 Nitroglycerin (Nitrostat) 0.4 mg SL UD PRN PRN Reason: Chest Pain Stop: 03/06/19 00:15 Ondansetron HCl (Zofran) 4 mg IV Q6H PRN PRN Reason: Nausea Stop: 03/06/19 00:15 Paroxetine HCl (Paxil) 40 mg PO DAILY [facility] Stop: 03/06/19 08:59 Last Admin: 02/05/19 08:05 Dose: 40 mg Documented by: Polyethylene Glycol (Miralax Powder Packet) 17 gm PO DAILY PRN PRN Reason: Constipation Stop: 03/06/19 00:15 PG Care Time/CCT Total # of Minutes Spent Total Time Spent with Patient: Total time spent is greater than 50% in coordination of care (as documented) at patient's floor/unit and/or counseling patient:
[2019-02-05] MEDS: cefTRIAXone SODIUM 1,000 MG in DEXTROSE 5% 50 ML IV SCH (17:48)
[2019-02-05] MEDS ORDERED: LORazepam 1 MG/2 ML VIAL IV STA (19:58)
[2019-02-06] MEDS: INSULIN ASPART 100 UNITS/ML 3 ML PEN SC SCH ×4 (09:01→20:27)
[2019-02-06] MEDS: INSULIN GLARGINE SOLOSTAR 100 UNITS/ML 3 ML PEN SC SCH (09:02)
[2019-02-06] MEDS: DOXYCYCLINE HYCLATE 100 MG in DEXTROSE 5% 100 ML IV SCH (09:09)
[2019-02-06] MEDS: FERROUS SULFATE 325 MG TAB PO SCH (09:17)
[2019-02-06] MEDS: METOPROLOL TARTRATE 25 MG TAB PO SCH ×3 (09:17→21:38)
[2019-02-06] MEDS: FAMOTIDINE 20 MG TAB PO SCH (09:18)
[2019-02-06] MEDS: ASPIRIN 81 MG ECTAB PO SCH (09:18)
[2019-02-06] MEDS: GABAPENTIN 100 MG CAP PO SCH (09:18)
[2019-02-06] MEDS: LOVASTATIN 20 MG TAB PO SCH (09:18)
[2019-02-06] MEDS: PARoxetine HCl 20 MG TAB PO SCH (09:18)
[2019-02-06 10:19] LABS: BUN Creatinine Ratio 23.1 (10-20); Calcium 8.3 mg/dl (8.5-10.1); Creatinine Clr Calc Pharmacy 31.7 ml/min; Est GFR (African American) 33.8; Est GFR (Non-African American) 29.2; Potassium 4.4 mmol/L (3.5-5.1)
[2019-02-06] MEDS: FUROSEMIDE 20 MG in SYRINGE 0 ML IV SCH ×3 (11:18→21:38)
--- NOTE | 2019-02-06 12:40 | Cardiology Progress Note ---
Date of Service February 06, 2019 Assessment & Plan (1) Acute on chronic HFrEF (heart failure with reduced ejection fraction): 68-year-old female, presents with acute on chronic systolic heart failure, possibly superimposed pneumonia, presumed underlying ischemic cardiomyopathy based on remote stress test, never had cardiac catheterization. Severe LV systolic dysfunction noted on echocardiogram this admission, LVEF in the range of 20 to 25%, down from 30 to 35% in 2017. Mild aortic valve stenosis, global left ventricular hypokinesis. Patient's prior to hospital diuretic dose was 20 mg daily. Patient received furosemide 20 mg, x2 doses yesterday, with 1400 mils of fluid output, her net loss however was still only negative -410 mL. Baseline creatinine is 1.82 mg/dL range, creatinine improved from 2.11 yesterday to 1.75 today. Increase furosemide to 20 mg every 6 hours. Prior to hospital metoprolol succinate dose transition to metoprolol tartrate, for treatment of sinus tachycardia and easy titration hospitalized, will plan to transition to evidence-based beta-pati, metoprolol succinate prior to discharge. (2) NSTEMI (non-ST elevated myocardial infarction): No current angina, troponin peaked at 1.48, and trended down to 0.6 on 02/05/2019. EKG this morning 02/06/2019 revealed sinus tachycardia 102 bpm, with mild nonspecific repolarization abnormalities, no significant ST depression. Continue beta-pati, diuretic therapy. Prior to hospital lisinopril is currently on hold to help optimize kidney function. (3) Chronic renal disease, stage IV: Creatinine trending toward improvement. (4) Metabolic encephalopathy: Appears to have in hospital delirium on acute baseline mild dementia. DVT prophylaxis: Patient had previously been on unfractionated heparin infusion this hospital stay, but discontinued due to bleeding from her perineal area. She is certainly high risk for DVT, would consider starting her back on subcu taneous heparin 5000 units twice daily, will defer to the primary service. -Patient to remain hospitalized on telemetry, Dr. Hernandez to assume rounding for our service on 02/07/19. Subjective Chief complaint: Follow-up shortness of breath, confusion Subjective: Patient with ongoing confusion, a little bit worse than yesterday. She initially refused blood draw this morning, but it has since been drawn and her creatinine is trending toward improvement. Her oxygen treatment requirements are little bit lower, on 4 L of oxygen mask tr eatment as compared to 9 to 10 L previously. Review of Systems Review of Systems: All systems reviewed & are unremarkable except as noted in HPI & below Physical Exam Physical Exam: Temp Pulse Resp BP Pulse Ox 36.8 C 98 H 15 141/80 H 93 02/06/19 11:55 02/06/19 11:55 02/06/19 11:55 02/06/19 11:55 02/06/19 11:55 Constitutional: + ill appearing Respiratory: Auscultation: + diminished lung sounds (Breath sounds bilaterally at the bases); no crackles, no rales and no wheezes Cardiovascular: Rate/Rhythm: regular rhythm and + tachycardic Heart Sounds: + murmur (I/ systolic murmur) Gastrointestinal (Abdomen): normal bowel sounds, soft, nontender, no hepatosplenomegaly Neurologic: Follows commands, confused however regarding surroundings Results & Data Vital Signs (Past 12 Hours) Vital Signs Temp Pulse Resp BP Pulse Ox 02/06/19 11:55 36.8 C 98 H 15 141/80 H 93 02/06/19 09:30 92 02/06/19 07:35 36.9 C 104 H 22 145/70 H 96 02/06/19 03:48 107 H 22 90
--- NOTE | 2019-02-06 16:32 | Hospitalist Progress Note ---
Date of Service February 06, 2019 Assessment & Plan (1) Ischemic cardiomyopathy: acute systolic heart failure on chronic heart failure EF is poorer than in the past, down to 25% (was 35% in the past) Lasix 20mg IV q6 making more urine today, breathing improved to 3L NC hold lisinopril with aggressive diuresis Cr stable at 1.75 today (2) Pneumonia involving right lung: possible Pneumonia involving right middle and right lower lobe/hypoxia- now ruled out WBC normal for two days, minimal cough, no fever patient seems to be responding more to diuresis than antibiotics, making a lot of urine will actually stop Rocephin and Doxy today and observe, treat more primarily like heart failure procalcitonin minimally high but likely due to CKD (3) NSTEMI (non-ST elevated myocardial infarction): type II NSTEMI, demand ischemia troponin 1.2, trended back down no reported chest pain, no ischemic changes on EKG no WM abnormalities on echo, although EF is more reduced at 25% no heparin drip due to some GI bleeding continue metoprolol (4) Hypertension: BP is 144/98 most recently continue home regimen (5) Hyperglycemia due to type 2 diabetes mellitus: Glucose was 443 upon admission, and following successive regular insulin IV was decreased to 231. on NPH 70/30 outptient will increase Lantus to 22 units daily, Novolog SS no hypoglycemic episodes sugars better controlled on tighter basal regimen (6) Hyperkalemia: Potassium 6.0 upon admission laboratories. resolved with insulin, calcium gluconate today it is 4.4, should be controlled on Lasix q6 (7) GERD (gastroesophageal reflux disease): Continue famotidine 20 mg daily (8) Anemia: Hb stable at 9.4 yesterday (9) Anxiety and depression: Continue paroxetine 40 mg daily, and gabapentin 100 mg p.o. daily (10) Hyperlipidemia LDL goal <70: Continue lovastatin 40 mg p.o. daily. Check a fasting lipid panel (11) Chronic renal disease, stage IV: Cr stable at 1.7, electrolytes stable (12) Metabolic encephalopathy: underlying mental health disorder, very anxious per son, her memory has been spotty at times, concerned that she has early dementia she lives with her daughter, family helps take care of her Haldol q6 PRN for agitation, pulling at lines Subjective patient calmer today, but still occasionally pulling at lines and darby breathing is better though, stable on 3L which is an improvement appreciate input form Dr. Asael watkinsing much better on Lasix q6 that was started today with stable vitals, no fever and WBC normal will stop the antibiotics Review of Systems Review of Systems: Unobtainable due to cognitive status Physical Exam Constitutional: well developed and well nourished Eyes: PERRL, conjunctivae normal, anicteric sclerae ENMT: external ear and nose normal, oropharynx normal Neck: trachea midline, no thyromegaly Respiratory: normal respiratory effort, lungs clear to auscultation (decreased BS in bases) Cardiovascular: Rate/Rhythm: regular rhythm and + tachycardic Heart Sounds: normal S1 and normal S2; no murmur Vessels: no JVD Extremities: normal capillary refill; no edema Gastrointestinal (Abdomen): normal bowel sounds, soft, nontender, no hepatosplenomegaly Musculoskeletal: no cyanosis or clubbing, extremities motor strength 5/5 Skin: no rashes, warm and dry Neurologic: patellar DTR's 2+ bilat, sensation intact and PERRL, EOMI, accommodation nl, no face palsy, no dysarthria Psychiatric: Orientation: alert, oriented to person and + guarded; + not oriented to place and + not oriented to time Lymphatic: no cervical or axillary lymphadenopathy Results & Data Vital Signs (Past 12 Hours) Vital Signs Temp Pulse Resp BP Pulse Ox 02/06/19 15:46 37.4 C 98 H 17 144/98 H 97 02/06/19 11:55 36.8 C 98 H 15 141/80 H 93 02/06/19 09:30 92 02/06/19 07:35 36.9 C 104 H 22 145/70 H 96 Laboratory Results Laboratory Results - last 24 hr 02/05/19 02/06/19 02/06/19 21:14 05:28 07:11 Sodium 140 Potassium 4.4 Chloride 109 H Carbon Dioxide 23 Anion Gap 8.0 BUN 40 H Creatinine 1.75 H D Est Cr Clr Drug Dosing 31.7 Est GFR ( Amer) 33.8 Est GFR (Non-Af Amer) 29.2 BUN/Creatinine Ratio 23.1 H Glucose 177 H POC Glucose 145 H 196 H Calcium 8.3 L 02/06/19 11:16 Sodium Potassium Chloride Carbon Dioxide Anion Gap BUN Creatinine Est Cr Clr Drug Dosing Est GFR ( Amer) Est GFR (Non-Af Amer) BUN/Creatinine Ratio Glucose POC Glucose 248 H Calcium Medications Administered Current Inpatient Medications Acetaminophen (Tylenol) 650 mg PO Q4H PRN PRN Reason: Pain or Fever Stop: 03/06/19 00:15 Last Admin: 02/04/19 13:38 Dose: 650 mg Documented by: Al Hydrox/Mg Hydrox/Simethicone (Maalox) 15 ml PO Q4H PRN PRN Reason: Dyspepsia Stop: 03/06/19 00:15 Albuterol (Duoneb) 3 ml NEB Q4R PRN PRN Reason: Dyspnea Stop: 03/07/19 14:59 Aspirin (Ecotrin Ectab) 81 mg PO QAM [facility] Stop: 03/06/19 08:59 Last Admin: 02/06/19 09:18 Dose: 81 mg Documented by: Dextrose (Dextrose 50%) 25 - 50 ml IV UD PRN; Protocol PRN Reason: Hypoglycemia Protocol Stop: 03/06/19 00:15 Famotidine (Pepcid) 20 mg PO DAILY [facility] Stop: 03/06/19 08:59 Last Admin: 02/06/19 09:18 Dose: 20 mg Documented by: Ferrous Sulfate (Feosol) 325 mg PO DAILY [facility] Stop: 03/06/19 08:59 Last Admin: 02/06/19 09:17 Dose: 325 mg Documented by: Gabapentin (Neurontin) 100 mg PO DAILY [facility] Stop: 03/06/19 08:59 Last Admin: 02/06/19 09:18 Dose: 100 mg Documented by: Glucagon (Glucagen) 1 mg SQ UD PRN; Protocol PRN Reason: Hypoglycemia Protocol Stop: 03/06/19 00:15 Glucose (Glucose 40%) 15 - 30 gm PO UD PRN; Protocol PRN Reason: Hypoglycemia Protocol Stop: 03/06/19 00:15 Glucose (Dex4 Glucose) 4 - 8 tabs PO UD PRN; Protocol PRN Reason: Hypoglycemia Protocol Stop: 03/06/19 00:15 Furosemide 20 mg/ Syringe 2 mls @ 4 mls/min IV Q6H [facility] Stop: 03/08/19 10:59 Last Admin: 02/06/19 11:18 Dose: 4 mls/min Documented by: Insulin Aspart (Novolog Flexpen) 0 units SC ACHS [facility] Stop: 03/06/19 07:29 Last Admin: 02/06/19 11:47 Dose: 5 units Documented by: Insulin Glargine (Lantus Solostar Pen) 22 units SC QAM [facility] Stop: 03/08/19 08:59 Last Admin: 02/06/19 09:02 Dose: 22 units Documented by: Lovastatin (Mevacor) 40 mg PO DAILY [facility] Stop: 03/06/19 08:59 Last Admin: 02/06/19 09:18 Dose: 40 mg Documented by: Magnesium Hydroxide (Milk Of Magnesia) 30 ml PO Q12H PRN PRN Reason: Constipation Stop: 03/06/19 00:15 Metoprolol Tartrate (Lopressor) 25 mg PO TID [facility] Stop: 03/07/19 13:59 Last Admin: 02/06/19 14:38 Dose: 25 mg Documented by: Miscellaneous (Carbohydrates For Hypoglycemia) 15 - 30 gm PO UD PRN PRN Reason: Hypoglycemia Protocol Stop: 03/06/19 00:15 Nitroglycerin (Nitrostat) 0.4 mg SL UD PRN PRN Reason: Chest Pain Stop: 03/06/19 00:15 Ondansetron HCl (Zofran) 4 mg IV Q6H PRN PRN Reason: Nausea Stop: 03/06/19 00:15 Paroxetine HCl (Paxil) 40 mg PO DAILY [facility] Stop: 03/06/19 08:59 Last Admin: 02/06/19 09:18 Dose: 40 mg Documented by: Polyethylene Glycol (Miralax Powder Packet) 17 gm PO DAILY PRN PRN Reason: Constipation Stop: 03/06/19 00:15 PG Care Time/CCT Total # of Minutes Spent Total Time Spent with Patient: Total time spent is greater than 50% in coordination of care (as documented) at patient's floor/unit and/or counseling patient:
[2019-02-07] MEDS: FUROSEMIDE 20 MG in SYRINGE 0 ML IV SCH ×4 (05:50→20:35)
[2019-02-07 07:07] LABS: Hematocrit (blood only) 31.4 % (37-47); Hemoglobin 10.7 g/dL (12.0-16.0); Mean Corpuscular Hemoglobin 32.8 pg (25-34); Mean Corpuscular Hgb Conc 34.1 g/dL (32-36); Mean Corpuscular Volume 96.3 fL (80-100); Mean Platelet Volume 10.5 fL (7.4-10.4); Platelet Count 149 K/uL (130-400); RDW Coefficient of Variation 12.6 % (11.5-14.5); RDW Standard Deviation 43.7 fL (36.4-46.3); Red Blood Count 3.26 M/uL (4.2-5.4); White Blood Count 4.46 K/uL (4.8-10.8)
[2019-02-07 07:44] LABS: BUN Creatinine Ratio 25.9 (10-20); Creatinine Clr Calc Pharmacy 36.5 ml/min; Est GFR (African American) 40.1; Est GFR (Non-African American) 34.6; Potassium 3.9 mmol/L (3.5-5.1)
[2019-02-07] MEDS: INSULIN ASPART 100 UNITS/ML 3 ML PEN SC SCH ×4 (08:08→20:12)
[2019-02-07] MEDS: INSULIN GLARGINE SOLOSTAR 100 UNITS/ML 3 ML PEN SC SCH (08:09)
[2019-02-07] MEDS: PARoxetine HCl 20 MG TAB PO SCH (08:09)
[2019-02-07] MEDS: FAMOTIDINE 20 MG TAB PO SCH (08:10)
[2019-02-07] MEDS: LOVASTATIN 20 MG TAB PO SCH (08:10)
[2019-02-07] MEDS: ASPIRIN 81 MG ECTAB PO SCH (08:10)
[2019-02-07] MEDS: METOPROLOL TARTRATE 25 MG TAB PO SCH ×3 (08:10→20:35)
[2019-02-07] MEDS: GABAPENTIN 100 MG CAP PO SCH (08:10)
[2019-02-07] MEDS: FERROUS SULFATE 325 MG TAB PO SCH (08:10)
[2019-02-07] MEDS ORDERED: METOPROLOL TARTRATE 25 MG TAB PO STA (10:12)
--- NOTE | 2019-02-07 11:29 | Cardiology Progress Note ---
Date of Service February 07, 2019 Assessment & Plan (1) Acute on chronic HFrEF (heart failure with reduced ejection fraction): (2) NSTEMI (non-ST elevated myocardial infarction): (3) Chronic renal disease, stage IV: (4) Metabolic encephalopathy: Patient clinically improving with IV diuretic therapy with negative fluid balance over the past 24 hours. Creatinine trending downward. (Baseline creatinine 1.8 mg/dL) Continue current diuretic therapy. Monitor fluid balance, GFR, electrolytes daily. Severe LV systolic dysfunction noted on echocardiogram this admission, LVEF in the range of 20 to 25%, down from 30 to 35% in 2017. Mild aortic valve stenosis, global left ventricular hypokinesis. Sinus tachycardia noted on telemetry. Agree with titration of metoprolol to 50 mg 3 times daily. Restart lisinopril when renal function stabilizes. Consider addition of Aldactone thereafter. Antibiotics for treatment of presumed pneumonia per primary service. Subjective Patient seen and examined at the bedside. Alert and agitated today. Requesting discharge. Daughter present at bedside. Patient seems to have poor insight into her medical conditions. Fluid balance negative approximately 4 L. Renal function improving. Denies chest pain or shortness of breath. Sinus rhythm and sinus tachycardia noted on telemetry without dysrhythmia. Metoprolol titrated to 50 mg 3 times daily. Review of Systems Review of Systems: All systems reviewed & are unremarkable except as noted in HPI & below Physical Exam 2 Physical Exam: General: NAD, AAO x3, well nourished. Agitated. HEENT: Normocephalic. Atraumatic. Conjunctiva pink, no scleral icterus. Neck: No carotid bruits, the carotid upstrokes are brisk. No JVD. No HJR Heart: Regular, borderline tachycardic, normal S-1 and S-2 no S-3 or S-4 gallop. No murmurs or rub appreciated. PMI is not displaced. No RV heave. Lungs: Scant crackles at the bases bilaterally. No rhonchi or wheeze. Abdomen: Normal bowel sounds. Soft. Nontender. No masses or organomegaly. No abdominal bruits. Extremities: No clubbing, cyanosis, or edema. Pulses: radial=2/4, Dorsalis pedis =2/4. Neuro: Cranial nerves grossly intact. No focal motor deficit. Results & Data Vital Signs (Past 12 Hours) Vital Signs Temp Pulse Pulse Resp BP Pulse Ox 02/07/19 07:34 102 H 02/07/19 07:30 36.5 C 106 H 16 150/91 H 99 02/06/19 23:39 37.4 C 101 H 20 151/81 H 96 Laboratory Results Laboratory Results - last 24 hr 02/06/19 02/06/19 02/06/19 11:16 16:24 20:17 WBC RBC Hgb Hct MCV MCH MCHC RDW Std Deviation RDW Coeff of Nevaeh Plt Count MPV Sodium Potassium Chloride Carbon Dioxide Anion Gap BUN Creatinine Est Cr Clr Drug Dosing Est GFR ( Amer) Est GFR (Non-Af Amer) BUN/Creatinine Ratio Glucose POC Glucose 248 H 82 76 Calcium 02/07/19 02/07/19 02/07/19 06:18 06:18 06:59 WBC 4.46 L RBC 3.26 L Hgb 10.7 L Hct 31.4 L MCV 96.3 MCH 32.8 MCHC 34.1 RDW Std Deviation 43.7 RDW Coeff of Nevaeh 12.6 Plt Count 149 MPV 10.5 H Sodium 139 Potassium 3.9 Chloride 104 Carbon Dioxide 28 Anion Gap 7.0 BUN 39 H Creatinine 1.52 H Est Cr Clr Drug Dosing 36.5 Est GFR ( Amer) 40.1 Est GFR (Non-Af Amer) 34.6 BUN/Creatinine Ratio 25.9 H Glucose 133 H POC Glucose 146 H Calcium 9.0
[2019-02-07] MEDS ORDERED: NovoLIN-R INSULIN PER UNIT CHARGE IV STA (11:45)
[2019-02-07] MEDS ORDERED: INSULIN HUMAN REGULAR PER UNIT 5 UNITS in SYRINGE 4.95 ML IV ONE (12:00)
--- NOTE | 2019-02-07 12:47 | Hospitalist Progress Note ---
Date of Service February 07, 2019 Assessment & Plan (1) Ischemic cardiomyopathy: acute systolic heart failure on chronic heart failure EF is poorer than in the past, down to 25% (was 35% in the past) continue Lasix 20mg IV q6 - 4000mL yesterday Cr down at 1.5 so will continue with aggressive diuresis hold lisinopril with tachycardia and hypertension, will increase Lopressor to 50mg TID with extra 25mg this morning (2) NSTEMI (non-ST elevated myocardial infarction): type II NSTEMI, demand ischemia troponin 1.2, trended back down no reported chest pain, no ischemic changes on EKG no WM abnormalities on echo, although EF is more reduced at 25% no heparin drip due to some GI bleeding continue metoprolol, increase to 50mg TID today (3) Hypertension: BP is elevated today, we are holding Lisinopril will increase Lopressor as above continue to use Lasix for volume control (4) Hyperglycemia due to type 2 diabetes mellitus: Glucose was 443 upon admission, and following successive regular insulin IV was decreased to 231. on NPH 70/30 outptient hyperglycemic this morning, ate about 60gm of carbs, appetite much better will give regular insulin 5 units IV, continue Novolog SS will increase Lantus to 30 units daily starting in the morning (5) Hyperkalemia: Potassium 6.0 upon admission laboratories. resolved with insulin, calcium gluconate today it is 3.9, should be controlled on Lasix q6 (6) GERD (gastroesophageal reflux disease): Continue famotidine 20 mg daily (7) Anemia: Hb stable at 9.4 yesterday (8) Anxiety and depression: Continue paroxetine 40 mg daily, and gabapentin 100 mg p.o. daily (9) Hyperlipidemia LDL goal <70: Continue lovastatin 40 mg p.o. daily. Check a fasting lipid panel (10) Chronic renal disease, stage IV: Cr stable at 1.7, electrolytes stable (11) Metabolic encephalopathy: underlying mental health disorder, very anxious per son, her memory has been spotty at times, concerned that she has early dementia she lives with her daughter, family helps take care of her Haldol q6 PRN for agitation oriented today, much calmer and not pulling at lines some of her confusion could have been driven by dyspnea and hypoxia which is resolved (12) Pneumonia involving right lung: possible Pneumonia involving right middle and right lower lobe/hypoxia- now ruled out WBC normal for two days, minimal cough, no fever patient seems to be responding more to diuresis than antibiotics, making a lot of urine will actually stop Rocephin and Doxy today and observe, treat more primarily like heart failure procalcitonin minimally high but likely due to CKD Subjective patient looks much better today, titrated down to room air after 4 liters diuresed yesterday still making clear urine in her darby bag this morning immediately she wanted to go home, said that she felt fine, started arguing with her daughter explained to her that she still needed IV Lasix, needed PT/OT evaluations, needed a safe discharge plan explained that she would not be ready for discharge until maybe Saturday at the earliest she said she would just leave, she said that she did not need me to discharge her explained that she can always leave AMA but her family would need to agree to take her and I know that they would not do this until she is medically stable she said she was eating better sugar jumped later this morning, 381, RN said she ate about 60gm of carbohydrates will give her regular insulin in addition to the Novolog SS coverage Cr is stable at 1.5 on the monitor her HR continues to be in the 100's, BP elevated 150/90 d/w RN to increase her metoprolol to 50mg TID d/w Dr. Hernandez, appreciate his input Review of Systems Review of Systems: All systems reviewed & are unremarkable except as noted in HPI & below Constitutional: + fatigue and + weakness; no fever, no chills and no sweats Respiratory: no cough and no dyspnea Cardiovascular: no chest pain, no palpitations and no edema Gastrointestinal: no abdominal pain, no nausea, no vomiting, no constipation and no diarrhea/loose stools Physical Exam Constitutional: well developed and well nourished Eyes: PERRL, conjunctivae normal, anicteric sclerae ENMT: external ear and nose normal, oropharynx normal Neck: trachea midline, no thyromegaly Respiratory: normal respiratory effort, lungs clear to auscultation Cardiovascular: Rate/Rhythm: regular rhythm and + tachycardic Heart Sounds: normal S1 and normal S2; no murmur Vessels: no JVD Extremities: normal capillary refill; no edema Gastrointestinal (Abdomen): normal bowel sounds, soft, nontender, no hepatosplenomegaly Musculoskeletal: no cyanosis or clubbing, extremities motor strength 5/5 Skin: no rashes, warm and dry Neurologic: patellar DTR's 2+ bilat, sensation intact and PERRL, EOMI, accommodation nl, no face palsy, no dysarthria Psychiatric: Orientation: alert, oriented to person, oriented to place, oriented to time and + guarded Lymphatic: no cervical or axillary lymphadenopathy Results & Data Vital Signs (Past 12 Hours) Vital Signs Temp Pulse Pulse Resp BP Pulse Ox 02/07/19 07:34 102 H 02/07/19 07:30 36.5 C 106 H 16 150/91 H 99 Laboratory Results Laboratory Results - last 24 hr 02/06/19 02/06/19 02/07/19 16:24 20:17 06:18 WBC 4.46 L RBC 3.26 L Hgb 10.7 L Hct 31.4 L MCV 96.3 MCH 32.8 MCHC 34.1 RDW Std Deviation 43.7 RDW Coeff of Nevaeh 12.6 Plt Count 149 MPV 10.5 H Sodium Potassium Chloride Carbon Dioxide Anion Gap BUN Creatinine Est Cr Clr Drug Dosing Est GFR ( Amer) Est GFR (Non-Af Amer) BUN/Creatinine Ratio Glucose POC Glucose 82 76 Calcium 02/07/19 02/07/19 02/07/19 06:18 06:59 11:20 WBC RBC Hgb Hct MCV MCH MCHC RDW Std Deviation RDW Coeff of Nevaeh Plt Count MPV Sodium 139 Potassium 3.9 Chloride 104 Carbon Dioxide 28 Anion Gap 7.0 BUN 39 H Creatinine 1.52 H Est Cr Clr Drug Dosing 36.5 Est GFR ( Amer) 40.1 Est GFR (Non-Af Amer) 34.6 BUN/Creatinine Ratio 25.9 H Glucose 133 H POC Glucose 146 H 381 H* Calcium 9.0 Medications Administered Current Inpatient Medications Acetaminophen (Tylenol) 650 mg PO Q4H PRN PRN Reason: Pain or Fever Stop: 03/06/19 00:15 Last Admin: 02/04/19 13:38 Dose: 650 mg Documented by: Al Hydrox/Mg Hydrox/Simethicone (Maalox) 15 ml PO Q4H PRN PRN Reason: Dyspepsia Stop: 03/06/19 00:15 Albuterol (Duoneb) 3 ml NEB Q4R PRN PRN Reason: Dyspnea Stop: 03/07/19 14:59 Aspirin (Ecotrin Ectab) 81 mg PO QAM [facility] Stop: 03/06/19 08:59 Last Admin: 02/07/19 08:10 Dose: 81 mg Documented by: Dextrose (Dextrose 50%) 25 - 50 ml IV UD PRN; Protocol PRN Reason: Hypoglycemia Protocol Stop: 03/06/19 00:15 Famotidine (Pepcid) 20 mg PO DAILY TED Stop: 03/06/19 08:59 Last Admin: 02/07/19 08:10 Dose: 20 mg Documented by: Ferrous Sulfate (Feosol) 325 mg PO DAILY TED Stop: 03/06/19 08:59 Last Admin: 02/07/19 08:10 Dose: 325 mg Documented by: Gabapentin (Neurontin) 100 mg PO DAILY [facility] Stop: 03/06/19 08:59 Last Admin: 02/07/19 08:10 Dose: 100 mg Documented by: Glucagon (Glucagen) 1 mg SQ UD PRN; Protocol PRN Reason: Hypoglycemia Protocol Stop: 03/06/19 00:15 Glucose (Glucose 40%) 15 - 30 gm PO UD PRN; Protocol PRN Reason: Hypoglycemia Protocol Stop: 03/06/19 00:15 Glucose (Dex4 Glucose) 4 - 8 tabs PO UD PRN; Protocol PRN Reason: Hypoglycemia Protocol Stop: 03/06/19 00:15 Furosemide 20 mg/ Syringe 2 mls @ 4 mls/min IV Q6H TED Stop: 03/08/19 10:59 Last Admin: 02/07/19 10:52 Dose: 4 mls/min Documented by: Insulin Aspart (Novolog Flexpen) 0 units SC ACHS [facility] Stop: 03/06/19 07:29 Last Admin: 02/07/19 12:40 Dose: 20 units Documented by: Insulin Glargine (Lantus Solostar Pen) 26 units SC QAM [facility] Stop: 03/10/19 08:59 Lovastatin (Mevacor) 40 mg PO DAILY [facility] Stop: 03/06/19 08:59 Last Admin: 02/07/19 08:10 Dose: 40 mg Documented by: Magnesium Hydroxide (Milk Of Magnesia) 30 ml PO Q12H PRN PRN Reason: Constipation Stop: 03/06/19 00:15 Metoprolol Tartrate (Lopressor) 50 mg PO TID [facility] Stop: 03/09/19 13:59 Miscellaneous (Carbohydrates For Hypoglycemia) 15 - 30 gm PO UD PRN PRN Reason: Hypoglycemia Protocol Stop: 03/06/19 00:15 Nitroglycerin (Nitrostat) 0.4 mg SL UD PRN PRN Reason: Chest Pain Stop: 03/06/19 00:15 Ondansetron HCl (Zofran) 4 mg IV Q6H PRN PRN Reason: Nausea Stop: 03/06/19 00:15 Paroxetine HCl (Paxil) 40 mg PO DAILY [facility] Stop: 03/06/19 08:59 Last Admin: 02/07/19 08:09 Dose: 40 mg Documented by: Polyethylene Glycol (Miralax Powder Packet) 17 gm PO DAILY PRN PRN Reason: Constipation Stop: 03/06/19 00:15 PG Care Time/CCT Total # of Minutes Spent Total Time Spent with Patient: Total time spent is greater than 50% in coordination of care (as documented) at patient's floor/unit and/or counseling patient:
[2019-02-08] MEDS: FUROSEMIDE 20 MG in SYRINGE 0 ML IV SCH ×3 (05:52→20:25)
[2019-02-08 06:42] LABS: BUN Creatinine Ratio 27.4 (10-20); Calcium 9.5 mg/dl (8.5-10.1); Creatinine Clr Calc Pharmacy 30.2 ml/min; Est GFR (African American) 31.9; Est GFR (Non-African American) 27.5; Potassium 3.9 mmol/L (3.5-5.1)
[2019-02-08] MEDS: INSULIN ASPART 100 UNITS/ML 3 ML PEN SC SCH ×4 (08:03→20:26)
[2019-02-08] MEDS: INSULIN GLARGINE SOLOSTAR 100 UNITS/ML 3 ML PEN SC SCH (08:03)
[2019-02-08] MEDS: PARoxetine HCl 20 MG TAB PO SCH (08:04)
[2019-02-08] MEDS: FAMOTIDINE 20 MG TAB PO SCH (08:05)
[2019-02-08] MEDS: LOVASTATIN 20 MG TAB PO SCH (08:05)
[2019-02-08] MEDS: METOPROLOL TARTRATE 25 MG TAB PO SCH (08:05)
[2019-02-08] MEDS: ASPIRIN 81 MG ECTAB PO SCH (08:05)
[2019-02-08] MEDS: GABAPENTIN 100 MG CAP PO SCH (08:05)
[2019-02-08] MEDS: FERROUS SULFATE 325 MG TAB PO SCH (08:05)
[2019-02-08] MEDS ORDERED: INSULIN GLARGINE SOLOSTAR 100 UNITS/ML 3 ML PEN SC SCH (09:00)
--- NOTE | 2019-02-08 11:42 | Cardiology Progress Note ---
Date of Service February 08, 2019 Assessment & Plan (1) Acute on chronic HFrEF (heart failure with reduced ejection fraction): (2) NSTEMI (non-ST elevated myocardial infarction): (3) Chronic renal disease, stage IV: (4) Metabolic encephalopathy: Restart lisinopril 5 mg daily pending review of a.m. labs. Agree with reduction of IV Lasix dosing today. Transition to 40 mg Lasix daily in a.m. (Previous dose 20 mg daily). Monitor fluid balance, GFR, electrolytes daily. (Baseline creatinine 1.8 mg/dL) Sodium restriction advised. Transition metoprolol to succinate formulation (evidence-based therapy) at time of discharge. Subjective Patient seen and examined the bedside. She is less agitated today. Requesting discharge. Denies chest pain or shortness of breath. Fluid balance negative approximately 800 cc over the past 24 hours. Weight is down 5 kg since admission. Respiratory status markedly improved. Mild improvement of resting heart rate with titration of beta-pati therapy. Creatinine trending upward, however, remains near baseline of 1.8. Patient offers no complaints. Review of Systems Review of Systems: All systems reviewed & are unremarkable except as noted in HPI & below Physical Exam Physical Exam: General: NAD, awake and alert, well nourished. Agitated. HEENT: Normocephalic. Atraumatic. Conjunctiva pink, no scleral icterus. Neck: No carotid bruits, the carotid upstrokes are brisk. No JVD. No HJR Heart: Regular rhythm, normal S-1 and S-2 no S-3 or S-4 gallop. No murmurs or rub appreciated. PMI is not displaced. No RV heave. Lungs: Clear bilateral without rales, rhonchi or wheeze. Abdomen: Normal bowel sounds. Soft. Nontender. No masses or organomegaly. No abdominal bruits. Extremities: No clubbing, cyanosis, or edema. Pulses: radial=2/4, Dorsalis pedis =2/4. Neuro: Cranial nerves grossly intact. No focal motor deficit. Results & Data Vital Signs (Past 12 Hours) Vital Signs Temp Pulse Pulse Resp BP BP Pulse Ox 02/08/19 11:38 36.6 C 104 H 20 137/82 97 02/08/19 08:00 37.5 C 104 H 18 132/63 95 02/08/19 07:31 104 H 02/08/19 03:35 37 C 100 H 20 159/74 H 93
--- NOTE | 2019-02-08 13:41 | Hospitalist Progress Note ---
Date of Service February 08, 2019 Assessment & Plan (1) Ischemic cardiomyopathy: acute systolic heart failure on chronic heart failure EF is poorer than in the past, down to 25% (was 35% in the past) reduce Lasix to 20mg IV q12 today will resume PO dosing tomorrow, 40mg daily (up from the 20mg daily she was on prior) - 4.5L for admission, weight down 6kg Cr up slightly at 1.8 from 1.5 repeat in the AM resume Lisinopril 5mg daily tomorrow increase Toprol to 50mg BID, she was on 25mg BID at home plan for d/c tomorrow to home will be on Lasix 40mg PO daily, Toprol 50mg BID, Lisinopril 5mg daily will need to instruct family on fluid restriction, salt restriction, daily weights should follow up closely with [facility] cardiology (2) NSTEMI (non-ST elevated myocardial infarction): type II NSTEMI, demand ischemia troponin 1.2 on admission, trended back down no reported chest pain, no ischemic changes on EKG no WM abnormalities on echo, although EF is more reduced at 25% no heparin drip due to some GI bleeding that resolved quickly continue Toprol, increased to 50mg BID (3) Hypertension: BP is better today Toprol 50mg BID, Lisinopril 5mg, Lasix 40 (4) Hyperglycemia due to type 2 diabetes mellitus: Glucose was 443 upon admission, and following successive regular insulin IV was decreased to 231. on NPH 70/30 outptient, resume this on discharge eating a lot better, continue Lantus 30 units qAM and Novolog SS while here (5) Hyperkalemia: Potassium 6.0 upon admission laboratories. resolved with insulin, calcium gluconate today it is 3.9 (6) GERD (gastroesophageal reflux disease): Continue famotidine 20 mg daily (7) Anemia: Hb stable at 9.4 two days ago (8) Anxiety and depression: Continue paroxetine 40 mg daily, and gabapentin 100 mg p.o. daily (9) Hyperlipidemia LDL goal <70: Continue lovastatin 40 mg p.o. daily. Check a fasting lipid panel (10) Chronic renal disease, stage IV: Cr stable at 1.8, electrolytes stable (11) Metabolic encephalopathy: underlying mental health disorder, very anxious per son, her memory has been spotty at times, concerned that she has early dementia she lives with her daughter, family helps take care of her Haldol q6 PRN for agitation oriented today, much calmer and not pulling at lines some of her confusion could have been driven by dyspnea and hypoxia which is resolved (12) Pneumonia involving right lung: possible Pneumonia involving right middle and right lower lobe/hypoxia- now ruled out dyspnea and hypoxia due to heart failure stopped Rocephin and Doxy Subjective patient feeling a lot better today, sitting up in chair, reading her Bible she is pleasant and conversive, discussed going home tomorrow, she agrees breathing is much improved reviewed I/O, negative 4 liters, weight down almost 6kg since admission HR still above 100 on monitor, will increase metoprolol further today BP stable reviewed labs, Cr is up very slightly at 1.8 from 1.5 and diuresis lessening eating well, no chest pain/pressure, no dyspnea at rest discussed discharge plan with [facility], he is on board with her going home tomorrow they will provide 24 hour care she has waiver services, currently gets 20 hours a week but may qualify for more he agrees to home therapy services discussed that she is not safe to be alone, he will be there at the house Review of Systems Review of Systems: All systems reviewed & are unremarkable except as noted in HPI & below Respiratory: no cough, no dyspnea and no dyspnea on exertion Cardiovascular: no chest pain and no edema Musculoskeletal: + muscle weakness Physical Exam Constitutional: well developed and well nourished Eyes: PERRL, conjunctivae normal, anicteric sclerae ENMT: external ear and nose normal, oropharynx normal Neck: trachea midline, no thyromegaly Respiratory: normal respiratory effort, lungs clear to auscultation Cardiovascular: Rate/Rhythm: regular rhythm and + tachycardic Heart Sounds: normal S1 and normal S2; no murmur Vessels: no JVD Extremities: normal capillary refill; no edema Gastrointestinal (Abdomen): normal bowel sounds, soft, nontender, no hepatosplenomegaly Musculoskeletal: no cyanosis or clubbing, extremities motor strength 5/5 Skin: no rashes, warm and dry Neurologic: patellar DTR's 2+ bilat, sensation intact and PERRL, EOMI, accommodation nl, no face palsy, no dysarthria Psychiatric: Orientation: alert, oriented to person, oriented to place, oriented to time and + guarded Lymphatic: no cervical or axillary lymphadenopathy Results & Data Vital Signs (Past 12 Hours) Vital Signs Temp Pulse Pulse Resp BP BP Pulse Ox 02/08/19 11:39 98 02/08/19 11:38 36.6 C 104 H 20 137/82 97 02/08/19 08:00 37.5 C 104 H 18 132/63 95 02/08/19 07:31 104 H 02/08/19 03:35 37 C 100 H 20 159/74 H 93 Laboratory Results Laboratory Results - last 24 hr 02/07/19 02/07/19 02/08/19 16:24 20:00 05:29 Sodium 136 Potassium 3.9 Chloride 98 Carbon Dioxide 28 Anion Gap 10.0 BUN 50 H Creatinine 1.84 H D Est Cr Clr Drug Dosing 30.2 Est GFR ( Amer) 31.9 Est GFR (Non-Af Amer) 27.5 BUN/Creatinine Ratio 27.4 H Glucose 187 H POC Glucose 195 H 116 H Calcium 9.5 02/08/19 02/08/19 07:25 11:36 Sodium Potassium Chloride Carbon Dioxide Anion Gap BUN Creatinine Est Cr Clr Drug Dosing Est GFR ( Amer) Est GFR (Non-Af Amer) BUN/Creatinine Ratio Glucose POC Glucose 196 H 118 H Calcium Medications Administered Current Inpatient Medications Acetaminophen (Tylenol) 650 mg PO Q4H PRN PRN Reason: Pain or Fever Stop: 03/06/19 00:15 Last Admin: 02/04/19 13:38 Dose: 650 mg Documented by: Al Hydrox/Mg Hydrox/Simethicone (Maalox) 15 ml PO Q4H PRN PRN Reason: Dyspepsia Stop: 03/06/19 00:15 Albuterol (Duoneb) 3 ml NEB Q4R PRN PRN Reason: Dyspnea Stop: 03/07/19 14:59 Aspirin (Ecotrin Ectab) 81 mg PO QAM [facility] Stop: 03/06/19 08:59 Last Admin: 02/08/19 08:05 Dose: 81 mg Documented by: Dextrose (Dextrose 50%) 25 - 50 ml IV UD PRN; Protocol PRN Reason: Hypoglycemia Protocol Stop: 03/06/19 00:15 Famotidine (Pepcid) 20 mg PO DAILY [facility] Stop: 03/06/19 08:59 Last Admin: 02/08/19 08:05 Dose: 20 mg Documented by: Ferrous Sulfate (Feosol) 325 mg PO DAILY TED Stop: 03/06/19 08:59 Last Admin: 02/08/19 08:05 Dose: 325 mg Documented by: Furosemide (Lasix) 40 mg PO QAM [facility] Stop: 03/11/19 08:59 Gabapentin (Neurontin) 100 mg PO DAILY [facility] Stop: 03/06/19 08:59 Last Admin: 02/08/19 08:05 Dose: 100 mg Documented by: Glucagon (Glucagen) 1 mg SQ UD PRN; Protocol PRN Reason: Hypoglycemia Protocol Stop: 03/06/19 00:15 Glucose (Glucose 40%) 15 - 30 gm PO UD PRN; Protocol PRN Reason: Hypoglycemia Protocol Stop: 03/06/19 00:15 Glucose (Dex4 Glucose) 4 - 8 tabs PO UD PRN; Protocol PRN Reason: Hypoglycemia Protocol Stop: 03/06/19 00:15 Furosemide 20 mg/ Syringe 2 mls @ 4 mls/min IV Q12 TED Stop: 02/08/19 23:59 Last Admin: 02/08/19 08:04 Dose: 4 mls/min Documented by: Insulin Aspart (Novolog Flexpen) 0 units SC ACHS [facility] Stop: 03/06/19 07:29 Last Admin: 02/08/19 08:03 Dose: 3 units Documented by: Insulin Glargine (Lantus Solostar Pen) 30 units SC QAM [facility] Stop: 03/10/19 08:59 Last Admin: 02/08/19 08:03 Dose: 30 units Documented by: Lisinopril (Zestril) 5 mg PO QAM [facility] Stop: 03/11/19 08:59 Lovastatin (Mevacor) 40 mg PO DAILY [facility] Stop: 03/06/19 08:59 Last Admin: 02/08/19 08:05 Dose: 40 mg Documented by: Magnesium Hydroxide (Milk Of Magnesia) 30 ml PO Q12H PRN PRN Reason: Constipation Stop: 03/06/19 00:15 Metoprolol Succinate (Toprol Xl) 50 mg PO BID [facility] Stop: 03/10/19 20:59 Metoprolol Tartrate (Lopressor) 75 mg PO ONE ONE Stop: 02/09/19 14:01 Miscellaneous (Carbohydrates For Hypoglycemia) 15 - 30 gm PO UD PRN PRN Reason: Hypoglycemia Protocol Stop: 03/06/19 00:15 Nitroglycerin (Nitrostat) 0.4 mg SL UD PRN PRN Reason: Chest Pain Stop: 03/06/19 00:15 Ondansetron HCl (Zofran) 4 mg IV Q6H PRN PRN Reason: Nausea Stop: 03/06/19 00:15 Paroxetine HCl (Paxil) 40 mg PO DAILY [facility] Stop: 03/06/19 08:59 Last Admin: 02/08/19 08:04 Dose: 40 mg Documented by: Polyethylene Glycol (Miralax Powder Packet) 17 gm PO DAILY PRN PRN Reason: Constipation Stop: 03/06/19 00:15 PG Care Time/CCT Total # of Minutes Spent Total Time Spent with Patient: Total time spent is greater than 50% in coordination of care (as documented) at patient's floor/unit and/or counseling patient:
[2019-02-08] MEDS: METOPROLOL SUCC 50MG EXT REL TAB PO SCH (20:25)
[2019-02-09] MEDS: ACETAMINOPHEN 325 MG TAB PO PRN ×2 (04:20→22:26)
[2019-02-09] MEDS: INSULIN ASPART 100 UNITS/ML 3 ML PEN SC SCH ×4 (08:07→21:10)
[2019-02-09] MEDS: INSULIN GLARGINE SOLOSTAR 100 UNITS/ML 3 ML PEN SC SCH (08:08)
[2019-02-09] MEDS: METOPROLOL SUCC 50MG EXT REL TAB PO SCH (08:08)
[2019-02-09] MEDS: PARoxetine HCl 20 MG TAB PO SCH (08:09)
[2019-02-09] MEDS: ASPIRIN 81 MG ECTAB PO SCH (08:09)
[2019-02-09] MEDS: GABAPENTIN 100 MG CAP PO SCH (08:09)
[2019-02-09] MEDS: LOVASTATIN 20 MG TAB PO SCH (08:09)
[2019-02-09] MEDS: FERROUS SULFATE 325 MG TAB PO SCH (08:09)
[2019-02-09] MEDS: FAMOTIDINE 20 MG TAB PO SCH (08:10)
[2019-02-09 08:14] LABS: Calcium 9.3 mg/dl (8.5-10.1); Creatinine Clr Calc Pharmacy 23.7 ml/min; Est GFR (African American) 23.8; Est GFR (Non-African American) 20.5; Potassium 3.4 mmol/L (3.5-5.1)
[2019-02-09] MEDS ORDERED: lisinopriL 5 MG TAB PO SCH (09:00)
[2019-02-09] MEDS ORDERED: FUROSEMIDE 40 MG TAB PO SCH (09:00)
--- NOTE | 2019-02-09 10:07 | Cardiology Progress Note ---
Date of Service February 09, 2019 Assessment & Plan (1) Acute on chronic HFrEF (heart failure with reduced ejection fraction): (2) NSTEMI (non-ST elevated myocardial infarction): (3) Chronic renal disease, stage IV: (4) Metabolic encephalopathy: Transition metoprolol tartrate to succinate formulation, 75 mg twice daily. Creatinine elevated this morning. Recommend hold Lasix and lisinopril. Baseline creatinine 1.8 mg/DL. Continue to monitor. Subjective Patient seen and examined the bedside. Denies chest pain or shortness of breath. Sinus tachycardia unchanged on telemetry. Patient denies palpitations, lightheadedness, or dizziness. Poor historian due to underlying dementia. Requesting discharge. Review of Systems Review of Systems: All systems reviewed & are unremarkable except as noted in HPI & below Physical Exam Physical Exam: General: NAD, awake and alert, well nourished. Agitated. HEENT: Normocephalic. Atraumatic. Conjunctiva pink, no scleral icterus. Neck: No carotid bruits, the carotid upstrokes are brisk. No JVD. No HJR Heart: Regular rhythm, normal S-1 and S-2 no S-3 or S-4 gallop. No murmurs or rub appreciated. PMI is not displaced. No RV heave. Lungs: Clear bilateral without rales, rhonchi or wheeze. Abdomen: Normal bowel sounds. Soft. Nontender. No masses or organomegaly. No abdominal bruits. Extremities: No clubbing, cyanosis, or edema. Pulses: radial=2/4, Dorsalis pedis =2/4. Neuro: Cranial nerves grossly intact. No focal motor deficit. Results & Data Vital Signs (Past 12 Hours) Vital Signs Temp Pulse Resp BP Pulse Ox 02/09/19 07:50 36.7 C 99 H 16 136/73 93 02/09/19 04:00 36.8 C 100 H 17 135/77 95 02/08/19 23:58 36.9 C 101 H 18 139/72 91
[2019-02-09] MEDS ORDERED: PHARMACY GLYCEMIC MGMT CONSULT PRN (12:09)
[2019-02-09] MEDS ORDERED: INSULIN HUMAN NPH SC SCH (12:30)
[2019-02-09] MEDS: POTASSIUM CHLORIDE 20 MEQ TABCR PO SCH ×2 (13:14→21:11)
[2019-02-09] MEDS ORDERED: METOPROLOL TARTRATE 25 MG TAB PO ONE (14:00)
--- NOTE | 2019-02-09 14:29 | Pharmacy Report ---
Pharmacy Glycemic Short Note 2 - Date of Service February 09, 2019 - Glycemic Short BSG Results (Last 24 hours): 02/08/19 02/08/19 02/09/19 16:28 20:14 06:35 Glucose 143 H POC Glucose 294 H 247 H 02/09/19 02/09/19 02/09/19 07:15 11:32 11:36 Glucose POC Glucose 153 H 383 H* 420 H* OUTPATIENT ANTIDIABETIC REGIMEN: * Novolin 70/30 30 units qam, 15 units qpm ASSESSMENT: * Patient well controlled as an outpatient, experiencing post prandial hyperglycemia while admitted. * Patient typically goes high for lunch and dinner BSGs. Today lunch BSG 420, when pharmacy was consulted. * I will add a one time dose of NPH at lunch. I anticipate dinner BSG to still be elevated, but will remain conservative with today's NPH dose, given large doses of novolog, and uptrending scr. * Will plan on transitioning to twice daily NPH starting tomorrow for better mealtime coverage PLAN FOR INPATIENT GLYCEMIC CONTROL: * Hold outpatient oral diabetes medications * Basal insulin * Lantus 30 units SQ this morning * NPH 10 units at lunch * Bolus insulin * NovoLog per scale ACHS or Q6hrs while NPO * Goal Range: Low 110 mg/dL - High 150 mg/dL * Correction Factor: 20 mg/dL/unit * Nutritional / Prandial insulin per carb ratio of 1 unit per 8 grams CHO consumed PLAN FOR DISCHARGE: * pending
[2019-02-09] MEDS ORDERED: LACTATED RINGER'S 1,000 ML IV SCH (14:30)
--- NOTE | 2019-02-09 20:38 | Hospitalist Progress Note ---
Date of Service February 09, 2019 Assessment & Plan (1) Ischemic cardiomyopathy: acute systolic heart failure on chronic heart failure EF is poorer than in the past, down to 25% (was 35% in the past) reduce Lasix to 20mg IV q12 today will resume PO dosing tomorrow, 40mg daily (up from the 20mg daily she was on prior) - 4.5L for admission, weight down 6kg Base line creat is 1.8. Currently above 2. Will hold lisinopril and lasix for tomorrow. increase Toprol to 75mg BID, she was on 25mg BID at home plan for d/c tomorrow to home will be on Lasix 40mg PO daily, Toprol 50mg BID, Lisinopril 5mg daily will need to instruct family on fluid restriction, salt restriction, daily weights should follow up closely with [facility] cardiology (2) NSTEMI (non-ST elevated myocardial infarction): type II NSTEMI, demand ischemia troponin 1.2 on admission, trended back down no reported chest pain, no ischemic changes on EKG no WM abnormalities on echo, although EF is more reduced at 25% no heparin drip due to some GI bleeding that resolved quickly continue Toprol, increased to 50mg BID (3) Hypertension: BP is better today Toprol 75mg BID, Received lasix and lisnopril today. (4) Hyperglycemia due to type 2 diabetes mellitus: Glucose was 443 upon admission, and following successive regular insulin IV was decreased to 231. on NPH 70/30 outptient, resume this on discharge eating a lot better, continue Lantus 30 units qAM and Novolog SS while here (5) Hyperkalemia: Potassium 6.0 upon admission laboratories. resolved with insulin, calcium gluconate (6) GERD (gastroesophageal reflux disease): Continue famotidine 20 mg daily (7) Anemia: Hb stable at 9.4 two days ago (8) Anxiety and depression: Continue paroxetine 40 mg daily, and gabapentin 100 mg p.o. daily (9) Hyperlipidemia LDL goal <70: Continue lovastatin 40 mg p.o. daily. Check a fasting lipid panel (10) Chronic renal disease, stage IV: Cr elevated as stated above. (11) Metabolic encephalopathy: underlying mental health disorder, very anxious per son, her memory has been spotty at times, concerned that she has early dementia she lives with her daughter, family helps take care of her Haldol q6 PRN for agitation oriented today, much calmer and not pulling at lines some of her confusion could have been driven by dyspnea and hypoxia which is resolved (12) Pneumonia involving right lung: possible Pneumonia involving right middle and right lower lobe/hypoxia- now ruled out dyspnea and hypoxia due to heart failure stopped Rocephin and Doxy Discharge to SNF. Subjective Patient reports no new symptoms today. She states that she wants to be discharged. Her son is at bedside and is aware that patient will be going to a SNF. Review of Systems Review of Systems: All systems reviewed & are unremarkable except as noted in HPI & below Physical Exam Physical Exam: Constitutional: well developed and well nourished Eyes: PERRL, conjunctivae normal, anicteric sclerae ENMT: external ear and nose normal, oropharynx normal Neck: trachea midline, no thyromegaly Respiratory: normal respiratory effort, lungs clear to auscultation Cardiovascular: Rate/Rhythm: regular rhythm and regular rate Heart Sounds: normal S1 and normal S2; no murmur Vessels: no JVD Extremities: normal capillary refill; no edema Gastrointestinal (Abdomen): normal bowel sounds, soft, nontender, no hepatosplenomegaly Musculoskeletal: no cyanosis or clubbing, extremities motor strength 5/5 Skin: no rashes, warm and dry Neurologic: patellar DTR's 2+ bilat, sensation intact and PERRL, EOMI, accommodation nl, no face palsy, no dysarthria Psychiatric: Orientation: alert, oriented to person, oriented to place, oriented to time and + guarded Lymphatic: no cervical or axillary lymphadenopathy Results & Data Vital Signs (Past 12 Hours) Vital Signs Temp Pulse Resp BP Pulse Ox 02/09/19 16:39 36.9 C 82 18 143/86 H 96 02/09/19 15:31 36.7 C 85 18 123/63 95 02/09/19 11:04 37.0 C 94 H 12 120/85 92 PG Care Time/CCT Total # of Minutes Spent Total Time Spent with Patient: Total time spent is greater than 50% in coordination of care (as documented) at patient's floor/unit and/or counseling patient:
[2019-02-09] MEDS: METOPROLOL SUCC 25MG EXT REL TAB PO SCH (21:11)
[2019-02-10 06:09] LABS: Hematocrit (blood only) 31.3 % (37-47); Hemoglobin 10.6 g/dL (12.0-16.0); Mean Corpuscular Hemoglobin 32.5 pg (25-34); Mean Corpuscular Hgb Conc 33.9 g/dL (32-36); Mean Platelet Volume 10.3 fL (7.4-10.4); Platelet Count 137 K/uL (130-400); RDW Coefficient of Variation 12.7 % (11.5-14.5); RDW Standard Deviation 43.5 fL (36.4-46.3); Red Blood Count 3.26 M/uL (4.2-5.4); White Blood Count 6.33 K/uL (4.8-10.8)
[2019-02-10 07:03] LABS: BUN Creatinine Ratio 30.8 (10-20); Calcium 9.1 mg/dl (8.5-10.1); Creatinine Clr Calc Pharmacy 23.1 ml/min; Est GFR (African American) 23.1; Est GFR (Non-African American) 19.9; Potassium 4.7 mmol/L (3.5-5.1)
[2019-02-10] MEDS ORDERED: INSULIN HUMAN NPH SC SCH ×2 (08:30→17:00)
[2019-02-10] MEDS: INSULIN ASPART 100 UNITS/ML 3 ML PEN SC SCH ×4 (08:59→21:33)
--- NOTE | 2019-02-10 09:38 | Pharmacy Report ---
Pharmacy Glycemic Short Note 2 - Date of Service February 10, 2019 - Glycemic Short BSG Results (Last 24 hours): 02/09/19 02/09/19 02/09/19 11:32 11:36 16:39 Glucose POC Glucose 383 H* 420 H* 208 H 02/09/19 02/10/19 02/10/19 20:18 05:52 07:52 Glucose 137 H POC Glucose 205 H 156 H OUTPATIENT ANTIDIABETIC REGIMEN: * Novolin 70/30 30 units qam, 15 units qpm ASSESSMENT: * Patient well controlled as an outpatient, experiencing post prandial hyperglycemia while admitted. * Patient typically goes high for lunch and dinner BSGs. Yesterday lunch BSG 420, when pharmacy was consulted. * Received 83 units of insulin yesterday (40 of which were basal) * Fasting BSG this morning of 156 mg/dL * BSG at lunch is 356 mg/dL * Patient ate a late breakfast, which was not covered with insulin (will not overreact to this blood sugar) * SCr elevated from admission (1.5 -> 2.4 mg/dL today) PLAN FOR INPATIENT GLYCEMIC CONTROL: * Hold outpatient oral diabetes medications * Basal insulin * NPH 20 units given this morning * Will plan on scale for dinner-time dose * -10 units if BSG less than 180 mg/dL * -15 units if BSG 180 mg/dL or above * Bolus insulin * 4 unit IV regular insulin bolus x 1 given with lunch * NovoLog per scale ACHS or Q6hrs while NPO * Goal Range: Low 110 mg/dL - High 150 mg/dL * Correction Factor: 20 mg/dL/unit * Nutritional / Prandial insulin per carb ratio of 1 unit per 7 grams CHO consumed PLAN FOR DISCHARGE: * Pending
[2019-02-10] MEDS: ACETAMINOPHEN 325 MG TAB PO PRN (10:32)
[2019-02-10] MEDS: FERROUS SULFATE 325 MG TAB PO SCH (10:34)
[2019-02-10] MEDS: POTASSIUM CHLORIDE 20 MEQ TABCR PO SCH (10:35)
[2019-02-10] MEDS: LOVASTATIN 20 MG TAB PO SCH (10:36)
[2019-02-10] MEDS: GABAPENTIN 100 MG CAP PO SCH (10:37)
[2019-02-10] MEDS: PARoxetine HCl 20 MG TAB PO SCH (10:39)
[2019-02-10] MEDS: METOPROLOL SUCC 25MG EXT REL TAB PO SCH ×2 (10:40→21:27)
[2019-02-10] MEDS: FAMOTIDINE 20 MG TAB PO SCH (10:40)
[2019-02-10] MEDS: ASPIRIN 81 MG ECTAB PO SCH (10:42)
[2019-02-10] MEDS ORDERED: LACTATED RINGER'S 1,000 ML IV SCH (12:15)
--- NOTE | 2019-02-10 12:21 | Cardiology Progress Note ---
Date of Service February 10, 2019 Assessment & Plan (1) Acute on chronic HFrEF (heart failure with reduced ejection fraction): (2) NSTEMI (non-ST elevated myocardial infarction): (3) Chronic renal disease, stage IV: (4) Metabolic encephalopathy: Continue metoprolol succinate 75 mg twice daily. Hold Lasix and lisinopril today. Repeat basic metabolic panel in a.m. Baseline creatinine 1.8 mg/DL. Restart Lasix and lisinopril when creatinine has returned to baseline. Resume outpatient Lasix dose, 20 mg daily. Cardiology will sign off at this time. Please call with questions. Subjective Patient seen and examined the bedside. Denies chest pain or shortness of breath. Lisinopril and Lasix placed on hold due to elevated creatinine. Telemetry discontinued. Patient offers no concerns/complaints this time. Review of Systems Review of Systems: All systems reviewed & are unremarkable except as noted in HPI & below Physical Exam Physical Exam: General: NAD, awake and alert, well nourished. Agitated. HEENT: Normocephalic. Atraumatic. Conjunctiva pink, no scleral icterus. Neck: No carotid bruits, the carotid upstrokes are brisk. No JVD. No HJR Heart: Regular rhythm, normal S-1 and S-2 no S-3 or S-4 gallop. No murmurs or rub appreciated. PMI is not displaced. No RV heave. Lungs: Clear bilateral without rales, rhonchi or wheeze. Abdomen: Normal bowel sounds. Soft. Nontender. No masses or organomegaly. No abdominal bruits. Extremities: No clubbing, cyanosis, or edema. Pulses: radial=2/4, Dorsalis pedis =2/4. Neuro: Cranial nerves grossly intact. No focal motor deficit. Results & Data Vital Signs (Past 12 Hours) Vital Signs Temp Pulse Resp BP Pulse Ox 02/10/19 07:00 36.8 C 84 18 124/78 96
[2019-02-10] MEDS ORDERED: INSULIN HUMAN REGULAR PER UNIT 4 UNITS in SYRINGE 3.96 ML IV ONE (13:15)
[2019-02-10] MEDS ORDERED: PNEUMOCOCCAL POLYSACCHARIDES 25 MCG/0.5 ML VIAL/SYR IM ONE (13:30)
[2019-02-10] MEDS ORDERED: INFLUENZA VACCINE HIGH DOSE 65+ 0.5 ML SYR IM ONE (13:30)
[2019-02-10] MEDS ORDERED: PNEUMOCOCCAL ADMINISTRATION CHARGE ONE (13:30)
[2019-02-10] MEDS ORDERED: INFLUENZA ADMINISTRATION CHARGE ONE (13:30)
[2019-02-10 20:15] LABS: Creatinine Clr Calc Pharmacy 25.9 ml/min; Est GFR (African American) 26.5; Est GFR (Non-African American) 22.9
--- NOTE | 2019-02-10 22:06 | Hospitalist Progress Note ---
Date of Service February 10, 2019 Assessment & Plan (1) Ischemic cardiomyopathy: acute systolic heart failure on chronic heart failure EF is poorer than in the past, down to 25% (was 35% in the past) reduce Lasix to 20mg IV q12 today will resume PO dosing tomorrow, 40mg daily (up from the 20mg daily she was on prior) - 4.5L for admission, weight down 6kg Base line creat is 1.8. Currently above 2. Will continue to hold lisinopril and lasix. will give gentle IV fluids increase Toprol to 75mg BID, she was on 25mg BID at home plan for d/c tomorrow to home will be on Lasix 40mg PO daily, Toprol 50mg BID, Lisinopril 5mg daily will need to instruct family on fluid restriction, salt restriction, daily weights should follow up closely with [facility] cardiology (2) NSTEMI (non-ST elevated myocardial infarction): type II NSTEMI, demand ischemia troponin 1.2 on admission, trended back down no reported chest pain, no ischemic changes on EKG no WM abnormalities on echo, although EF is more reduced at 25% no heparin drip due to some GI bleeding that resolved quickly continue Toprol, (3) Hypertension: BP is better today Toprol 75mg BID, (4) Hyperglycemia due to type 2 diabetes mellitus: Glucose was 443 upon admission, and following successive regular insulin IV was decreased to 231. on NPH 70/30 outptient, resume this on discharge eating a lot better, continue Lantus 30 units qAM and Novolog SS while here (5) Hyperkalemia: Potassium 6.0 upon admission laboratories. resolved with insulin, calcium gluconate (6) GERD (gastroesophageal reflux disease): Continue famotidine 20 mg daily (7) Anemia: Hb stable at 9.4 two days ago (8) Anxiety and depression: Continue paroxetine 40 mg daily, and gabapentin 100 mg p.o. daily (9) Hyperlipidemia LDL goal <70: Continue lovastatin 40 mg p.o. daily. Check a fasting lipid panel (10) Chronic renal disease, stage IV: Cr elevated as stated above. (11) Metabolic encephalopathy: resolved underlying mental health disorder, very anxious per son, her memory has been spotty at times, concerned that she has early dementia she lives with her daughter, family helps take care of her Haldol q6 PRN for agitation oriented today, much calmer and not pulling at lines some of her confusion could have been driven by dyspnea and hypoxia which is resolved (12) Pneumonia involving right lung: possible Pneumonia involving right middle and right lower lobe/hypoxia- now ruled out dyspnea and hypoxia due to heart failure stopped Rocephin and Doxy Discharge to SNF on 02/11. Subjective Patient has no new complaints. Review of Systems Review of Systems: All systems reviewed & are unremarkable except as noted in HPI & below Physical Exam Physical Exam: Constitutional: well developed and well nourished Eyes: PERRL, conjunctivae normal, anicteric sclerae ENMT: external ear and nose normal, oropharynx normal Neck: trachea midline, no thyromegaly Respiratory: normal respiratory effort, lungs clear to auscultation Cardiovascular: Rate/Rhythm: regular rhythm and regular rate Heart Sounds: normal S1 and normal S2; no murmur Vessels: no JVD Extremities: normal capillary refill; no edema Gastrointestinal (Abdomen): normal bowel sounds, soft, nontender, no hepatosplenomegaly Musculoskeletal: no cyanosis or clubbing, extremities motor strength 5/5 Skin: no rashes, warm and dry Neurologic: patellar DTR's 2+ bilat, sensation intact and PERRL, EOMI, accommodation nl, no face palsy, no dysarthria Psychiatric: Orientation: alert, oriented to person, oriented to place, oriented to time and + guarded Lymphatic: no cervical or axillary lymphadenopathy Results & Data Vital Signs (Past 12 Hours) Vital Signs Temp Pulse Resp BP Pulse Ox 02/10/19 15:02 36.6 C 79 18 114/66 95 PG Care Time/CCT Total # of Minutes Spent Total Time Spent with Patient: Total time spent is greater than 50% in coordination of care (as documented) at patient's floor/unit and/or counseling patient:
[2019-02-10] MEDS ORDERED: LACTATED RINGER'S 500 ML IV SCH (22:15)
[2019-02-11] MEDS ORDERED: INSULIN HUMAN NPH SC SCH ×2 (08:30→17:00)
[2019-02-11 08:31] LABS: BUN Creatinine Ratio 33.8 (10-20); Calcium 9.5 mg/dl (8.5-10.1); Creatinine Clr Calc Pharmacy 30.2 ml/min; Est GFR (African American) 31.9; Est GFR (Non-African American) 27.5; Potassium 5.1 mmol/L (3.5-5.1)
--- NOTE | 2019-02-11 08:37 | Pharmacy Report ---
Pharmacy Glycemic Short Note 2 - Date of Service February 11, 2019 - Glycemic Short BSG Results (Last 24 hours): 02/10/19 02/10/19 02/10/19 12:06 12:07 16:36 Glucose POC Glucose 375 H* 356 H* 151 H 02/10/19 02/11/19 02/11/19 20:37 07:42 07:54 Glucose 75 POC Glucose 96 83 OUTPATIENT ANTIDIABETIC REGIMEN: * Novolin 70/30 30 units qam, 15 units qpm ASSESSMENT: * Patient well controlled as an outpatient, experiencing post prandial hyperglycemia while admitted. * Lunch BSG elevated yesterday at 356 mg/dL, but this was following an uncovered breakfast * 4 unit IV regular insulin bolus x 1 given with lunch * Otherwise BSGs well-controlled yesterday (ranging 96-156 mg/dL) * Received 56 units of insulin yesterday (30 of which were basal) * Fasting BSG this morning of 83 mg/dL * SCr trending back down (1.84 mg/dL today down from 2.4 mg/dL yesterday) PLAN FOR INPATIENT GLYCEMIC CONTROL: * Hold outpatient oral diabetes medications * Basal insulin - continue * NPH 20 units given this morning, 10 units with dinner * Bolus insulin - continue * NovoLog per scale ACHS or Q6hrs while NPO * Goal Range: Low 100 mg/dL - High 150 mg/dL * Correction Factor: 20 mg/dL/unit * Nutritional / Prandial insulin per carb ratio of 1 unit per 7 grams CHO consumed PLAN FOR DISCHARGE: * Reasonable to continue outpatient regimen at discharge and follow-up with managing provider.
[2019-02-11] MEDS: ASPIRIN 81 MG ECTAB PO SCH (08:50)
[2019-02-11] MEDS: LOVASTATIN 20 MG TAB PO SCH (08:51)
[2019-02-11] MEDS: PARoxetine HCl 20 MG TAB PO SCH (08:52)
[2019-02-11] MEDS: FAMOTIDINE 20 MG TAB PO SCH (08:52)
[2019-02-11] MEDS: GABAPENTIN 100 MG CAP PO SCH (08:52)
[2019-02-11] MEDS: METOPROLOL SUCC 25MG EXT REL TAB PO SCH (08:53)
[2019-02-11] MEDS: INSULIN ASPART 100 UNITS/ML 3 ML PEN SC SCH ×2 (08:58→12:37)
[2019-02-11] MEDS: FERROUS SULFATE 325 MG TAB PO SCH (10:04)
[2019-02-11] MEDS: ACETAMINOPHEN 325 MG TAB PO PRN (11:56)
[2019-02-12] MEDS ORDERED: INSULIN HUMAN NPH SC SCH (08:00)
--- NOTE | 2019-02-18 10:24 | Discharge Summary ---
Date of Service February 11, 2019 Admission HPI Per Admitting Provider The patient is a 68-year-old female, seen in transfer from [facility] emergency department, where she presented with the above symptoms. Work-up at that time included elevated glucose of 456, elevated troponin of 0.126, and a mild level of hypoxia requiring 2 L of oxygen to maintain saturation of 95%. When patient was seen at arrival at [facility], she was on 15 L mask, with pulse ox in the 88% range. She was somewhat anxious, but overall comfortable. Initial admission orders were placed, and stat laboratories including CBC with differential, chemistry profile, magnesium level, and troponin level were ordered. Studies including stat chest x-ray, and EKG were also ordered. Principal Diagnosis Ischemic cardiomyopathy Discharge Exam Constitutional: well developed and well nourished Eyes: PERRL, conjunctivae normal, anicteric sclerae ENMT: external ear and nose normal, oropharynx normal Neck: trachea midline, no thyromegaly Respiratory: normal respiratory effort, lungs clear to auscultation Cardiovascular: Rate/Rhythm: regular rhythm and regular rate Heart Sounds: normal S1 and normal S2; no murmur Vessels: no JVD Extremities: normal capillary refill; no edema Gastrointestinal (Abdomen): normal bowel sounds, soft, nontender, no hepatosplenomegaly Musculoskeletal: no cyanosis or clubbing, extremities motor strength 5/5 Skin: no rashes, warm and dry Neurologic: patellar DTR's 2+ bilat, sensation intact and PERRL, EOMI, accommodation nl, no face palsy, no dysarthria Psychiatric: Orientation: alert, oriented to person, oriented to place, oriented to time and + guarded Lymphatic: no cervical or axillary lymphadenopathy Discharge Data Allergies Allergy/AdvReac Type Severity Reaction Status Date / Time No Known Allergies Allergy Unverified 09/12/16 11:36 Consultations 02/04/19 00:20 Consult Case Management - Discharge Planning Routine 02/04/19 10:23 Consult Cardiology Routine Hospital Course (1) Ischemic cardiomyopathy: acute systolic heart failure on chronic heart failure EF is poorer than in the past, down to 25% (was 35% in the past) reduce Lasix to 20mg IV q12 today will resume PO dosing tomorrow, 40mg daily (up from the 20mg daily she was on prior) - Patient negative about a liter, however, unsure if this is completely accurate. Base line creat is 1.8. Currently peaked at 2.4, back to baseline at discharge. DASH inhibitor weas held during hospital stay. increase Toprol to 75mg BID, she was on 25mg BID at home plan for d/c home will be on Lasix 40mg PO daily, Toprol 50mg BID, Lisinopril 5mg daily will need to instruct family on fluid restriction, salt restriction, daily weights should follow up closely with [facility] cardiology (2) NSTEMI (non-ST elevated myocardial infarction): type II NSTEMI, demand ischemia troponin 1.2 on admission, trended back down no reported chest pain, no ischemic changes on EKG no WM abnormalities on echo, although EF is more reduced at 25% no heparin drip due to some GI bleeding that resolved quickly continue Toprol, (3) Hypertension: BP is better today Toprol 75mg BID, (4) Hyperglycemia due to type 2 diabetes mellitus: Glucose was 443 upon admission, and following successive regular insulin IV was decreased to 231. on NPH 70/30 outptient, resume this on discharge eating a lot better, continue Lantus 30 units qAM and Novolog SS while here (5) Hyperkalemia: Potassium 6.0 upon admission laboratories. resolved with insulin, calcium gluconate (6) GERD (gastroesophageal reflux disease): Continue famotidine 20 mg daily (7) Anemia: Hb stable (8) Anxiety and depression: Continue paroxetine 40 mg daily, and gabapentin 100 mg p.o. daily (9) Hyperlipidemia LDL goal <70: Continue lovastatin 40 mg p.o. daily. Check a fasting lipid panel (10) Chronic renal disease, stage IV: Cr elevated as stated above. (11) Metabolic encephalopathy: resolved underlying mental health disorder, very anxious per son, her memory has been spotty at times, concerned that she has early dementia she lives with her daughter, family helps take care of her Haldol q6 PRN for agitation oriented today, much calmer and not pulling at lines some of her confusion could have been driven by dyspnea and hypoxia which is resolved (12) Pneumonia involving right lung: possible Pneumonia involving right middle and right lower lobe/hypoxia- now ruled out dyspnea and hypoxia due to heart failure stopped Rocephin and Doxy Discharge to SNF on 02/11. Total Time Total Time Spent Total Time Spent (In Minutes): 35 Total Time Includes: Examination of the Patient, Discharge Planning and Medication Reconciliation Discharge Plan Discharge Items Patient Disposition: Transfer [facility] Reason For Visit: ELEVATED TROPONIN, CHF Discharge Diagnosis: Congestive heart failure Activity: Resume your previous activity Non-emergency contact: Primary Care Provider Call non-emergency contact if: you have any medication questions Follow-up/Referrals: Steve Pinto MD [Primary Care Provider] - Diet: Carb Consistent or DM2, Heart Healthy and Low Sodium (2gm) Fluids: 1800ml (7 cups) Addtl Attending Provider Instructions: will be on Lasix 40mg PO daily, Toprol 75mg BID, Lisinopril 5mg daily Recommend fluid restriction, salt restriction, daily weights should follow up closely with [facility] cardiology within next week or 2. Keep daily weight journal. Followup with PCP within 10 days. Call 911 and go to the Emergency Room if: * You have tightness or pain in your chest that does not go away with rest or Nitroglycerin * You are very short of breath even with rest Call your doctor if any of the following symptoms or problems start or get worse: * Shortness of breath or difficulty breathing * Wake up at night short of breath * Chest pain * Cough * Swelling of your hands, fee, or legs * More fatigued or tired with your normal activity * Palpitations - sudden fast heart beats WEIGHT * Weigh yourself every morning after using the bathroom. * Use the same scale. * Wear the same amount of clothing. * Write your weight down on your chart. * Call your doctor if you gain more than 2-3 pounds in 1-2 days. MEDICATIONS * Use this discharge instruction sheet for instructions. * Take your medications at the time your doctor ordered. * Do not skip a dose of your medicines. * If you miss a dose of medicine, take as soon as possible, but DO NOT DOUBLE A DOSE. * Read your medicine information when you get home. * Know all of the side effects of your medicine. * Call your doctor's office if you have any side effects. * Be sure all of your doctors know what medicine and herbs you take (including cold, flu, and herbal medicine). * Pain Medicine: If you do not get relief from your pain, please call your doctor for help. Take the following with you to your follow-up doctor appointments: * Weight Chart * Medication List * List of questions Do not drink excessive alcohol, beer or wine. Pending Studies at Discharge: No Stand-Alone Forms: My [facility] Skilled Items Patient informed of condition?: No DNR: Yes Discharge Level of Care: Skilled Communicable Disease: No Discharge Prognosis: Stable Lines: None Urinary Catheter: No Medications and DC Order Prescriptions: New metoprolol succinate 25 mg Tablet Extended Release 24 Hr 75 mg PO BID 30 Days Qty: 180 RF: 0 aspirin [Ecotrin Low Strength] 81 mg Tablet,Delayed Release (Dr/Ec) 81 mg PO QAM Qty: 30 RF: 0 nitroglycerin [Nitrostat] 0.4 mg Tablet, Sublingual 0.4 mg sublingual UD PRN (Reason: chest pain) Qty: 5 RF: 0 Continued lovastatin 40 mg tablet 40 mg PO DAILY RF: 0 Novolin 70/30 U-100 Insulin 100 unit/mL (70-30) suspension See Rx Instructions .ROUTE .COMPLEX RF: 0 amlodipine 5 mg tablet 5 mg PO DAILY RF: 0 famotidine 20 mg tablet 20 mg PO DAILY RF: 0 benzonatate 100 mg capsule 100 mg PO DAILY RF: 0 ferrous sulfate 325 mg (65 mg iron) tablet 325 mg PO DAILY RF: 0 lisinopril 5 mg tablet 5 mg PO DAILY RF: 0 furosemide 20 mg tablet 20 mg PO DAILY RF: 0 gabapentin 100 mg capsule 100 mg PO DAILY RF: 0 ergocalciferol (vitamin D2) 50,000 unit capsule 50,000 unit PO DAILY RF: 0 paroxetine HCl 40 mg tablet 40 mg PO DAILY RF: 0 Discontinued metoprolol succinate 25 mg tablet extended release 24 hr 25 mg PO BID RF: 0 Discharge Orders: Discharge Order (Routine); Ordered 02/11/19 Ordered By: Olvin Montesinos/Other Patient Handouts: Hyperglycemia, Hypoglycemia, Diabetes Type 2 Coping Admission Data Admit Date/Time: 02/04/19 00:08 Attending Provider: Olvin Crawford Admit Provider: Jarret Lawson Primary Care Provider: Steve Pinto V. Other Providers: Jonah Vyas Other Interventions: Discharge Summary Assessment (RN) Last Done: 02/11/19 11:47 DC Date/Time DO NOT enter until pt leaves facility: 02/11/19 17:06
== END 2019-02-11 17:06 | DRG 280 ==
LOC: SUATTDRO 02-04 00:08 → 2E 02-04 00:08 → 4W 02-09 14:26

== ENCOUNTER 2019-03-04 11:34 | Inpatient (IN) ==
[2019-03-04 12:19] LABS: Hematocrit (blood only) 26.2 % (37-47); Hemoglobin 8.6 g/dL (12.0-16.0); Mean Corpuscular Hemoglobin 32.2 pg (25-34); Mean Corpuscular Hgb Conc 32.8 g/dL (32-36); Mean Corpuscular Volume 98.1 fL (80-100); Platelet Count 116 K/uL (130-400); RDW Coefficient of Variation 13.9 % (11.5-14.5); RDW Standard Deviation 49.2 fL (36.4-46.3); Red Blood Count 2.67 M/uL (4.2-5.4); White Blood Count 5.74 K/uL (4.8-10.8)
--- NOTE | 2019-03-04 12:23 | XRay Report ---
XR chest 1V portable CLINICAL HISTORY: Atypical chest pain COMPARISON STUDY: 02/05/2019 FINDINGS: The cardiac and mediastinal contours remain stable. There is a right subclavian pacer/defib rillator. There is radiographic evidence of mild congestive failure. There are small bilateral pleura l effusions. There is no lobar consolidation. Basilar opacities, likely represent atelectasis or foca l edema.[ IMPRESSION: 1. Continued radiographic evidence of congestive failure/fluid overload with small bilateral pleural effusions 2. Minimal progression in the basilar opacities, statistically atelectatic or secondary to focal catrachito a Electronically signed by: Palomo Salinas M.D. 03/04/2019 12:22 PM
[2019-03-04 12:33] LABS: D Dimer 1880 ug/L FEU (0-500)
[2019-03-04 12:40] LABS: Immature Granulocytes # (auto) 0.04 K/uL (0.00-0.02); Immature Granulocytes % (auto) 0.7 %; Lymphocytes # (auto) 1.11 K/uL (1.2-3.4); Lymphocytes % (auto) 19.3 %; Monocytes # (auto) 0.54 K/uL (0.11-0.59); Monocytes % (auto) 9.4 %; Neutrophils # (auto) 4.05 K/uL (1.4-6.5); Neutrophils % (auto) 70.6 %
[2019-03-04 12:42] LABS: Albumin Globulin Ratio 0.6 (0.9-2); Albumin Level 3.1 gm/dl (3.4-5.0); BUN Creatinine Ratio 32.6 (10-20); Bilirubin,Total 0.8 mg/dl (0.2-1); Creatinine Clr Calc Pharmacy 26.1 ml/min; Est GFR (African American) 26.1; Est GFR (Non-African American) 22.5; Globulin 5.3 gm/dl (2.5-4.0); Potassium 5.8 mmol/L (3.5-5.1); Total Protein 8.4 gm/dl (6.4-8.2); Troponin I 0.15 ng/ml (0-0.045)
[2019-03-04] MEDS ORDERED: SODIUM CHLORIDE 0.9% 1000ML 1,000 ML IV ONE (12:45)
[2019-03-04] MEDS ORDERED: NovoLIN-R INSULIN PER UNIT CHARGE IV STA (12:45)
[2019-03-04] MEDS ORDERED: SODIUM CHLORIDE 0.9% 500 ML IV ONE (12:46)
[2019-03-04 12:53] LABS: Beta-Hydroxybutyrate 2.07 mg/dl (0.2-2.81)
--- NOTE | 2019-03-04 13:18 | Ultrasound Report ---
US venous doppler LE BI CLINICAL HISTORY: 68 years-old Female presenting with + trop sob. TECHNIQUE: Real-time grayscale and color and spectral Doppler ultrasound imaging of the veins of the bilateral lower extremities was performed. Compression and augmentation were also utilized. COMPARISON: 02/28/2016. FINDINGS: RIGHT: Common femoral vein: Patent. Greater saphenous vein (superficial): Patent. Deep femoral vein: Patent. Femoral vein: Patent. Popliteal vein: Patent. Calf veins: Patent. LEFT: Common femoral vein: Patent. Greater saphenous vein (superficial): Patent. Deep femoral vein: Patent. Femoral vein: Patent. Popliteal vein: Patent. Calf veins: Patent. Other: None. IMPRESSION: No evidence of deep venous thrombosis. Electronically signed by: Cornelius Huffman M.D. 03/04/2019 1:17 PM
[2019-03-04] MEDS ORDERED: HEPARIN SODIUM/DEXTROSE 25,000 UNITS/500 ML BAG IV SCH (14:15)
--- NOTE | 2019-03-04 14:37 | History & Physical Report ---
Date of Service March 04, 2019 Assessment & Plan (1) SOB (shortness of breath): (2) Elevated troponin I level: This is a 68-year-old female who has significant past medical history of ischemic cardiomyopathy with systolic CHF EF 20 to 25%, presence of AICD, IDDM, CKD stage IV, HTN, mild , HLD, anemia of chronic disease, MDD, underlying dementia who presents to [facility] ED after being hypoxic at hospital follow-up PCP visit. In ED patient was noted to be hypoxic 88% on room air and placed on supplemental O2. Initial chest x-ray concerning for volume overload with small bilateral pleural effusions and CHF. Her troponin is chronically elevated and today was 0.150, d-dimer elevated 1880, ECG revealed sinus tachycardia with inferior lateral T wave inversion - new compared to prior ECG. Electrolyte abnormalities notable for significant hyperglycemia of 494, corrected sodium 135, K5.8, BUN 71, creatinine 2.17. She did have a drop in hemoglobin to 8.6 and 26.6 from 10.6/31.3 at discharge. She received 500ml IVF and 10 units of regular insulin. Pt appears dry on exam and lungs are clear to auscultation. She is not visibly in any distress on 1 L of O2. CXR appears improved minimally from discharge. Bun/Cr elevated with elevated ratio concerning for pre renal etiology ? dehydration component. Acute on set hypoxia and sinus tachycardia concern for PE given recent hospitalization - unable to do CT chest given renal fxn. Admit to PCU VQ scan stat ordered - discussed with tech who states able to do today Initiate low-dose no bolus IV heparin until PE/NSTEMI ruled out cycle troponin q6hr x 2 - next at 5pm pt did get fluid challenge in ED with 500ml - repeat BMP at 5pm to determine if any improvement in renal fxn Hold on lasix for now repeat echo (3) Hyperkalemia: Received 10 units IV regular insulin in ED Administer 1 g calcium gluconate May be elevated in setting of prerenal CORBY Hold lisinopril Repeat BMP at 5 PM and in a.m. (4) Acute worsening of stage 4 chronic kidney disease: Baseline creatinine 1.8 BUN/creatinine 71 and 2.17 today with ratio 32.6 Received fluid challenge in ED, will repeat BMP at 5 PM to observe for improvement or worsening of renal function Hold Lasix for now until reevaluated consult nephrology (5) DM II (diabetes mellitus, type II), controlled: A1c 7.6 on 02/04 On Novolin 70/30 as outpatient Patient significantly hyperglycemic in ED 494, s/p IV regular insulin 10 units Consult glycemic pharmacist for assistance -appreciate input Consult school vocational educator (6) Chronic systolic heart failure: s/p recent hospitalization for acute on chronic CHF exacerbation Most recent echo 02/04 revealed slightly worsened EF 20 to 25%, global hypokinesis, mildly dilated LA and LV, mild left On exam she does not appear volume overloaded trop peaked at 1.48 previous admission, trop appears chronically elevated Hold DASH given hyperkalemia and Hold oral lasix Continue metoprolol AICD in place Cardiology consulted Daily weights, strict I and O, HH/Low Na diet Pt weight 76.4kg today, 70.5kg on 02/11 (weight up appox 6kg) will need to obtain re weight when admitted (7) Ischemic cardiomyopathy: as above no active chest pain ECG changes notable for ST depressions inferior and laterally troponin elevated 0.150, appears chronically elevated trend troponin q6h x 2 pt with heart score 4 with very unreliable hx IV heparin low dose until NSTEMI/PE ruled out (8) AICD (automatic cardioverter/defibrillator) present: Obtain interrogation (9) GERD (gastroesophageal reflux disease): Continue famotidine (10) Anemia: H&H 8.6 and 26.6 H&H 10.6 and 31.3 at most recent discharge No signs or symptoms of active bleeding FOBT all stool Repeat H&H at 5 PM Monitor closely given initiation of IV heparin obtain anemia panel in a.m. (11) Hypertension: bp stable continue metoprolol and amlodipine hold lisinopril and lasix monitor (12) Thrombocytopenia: Plt 116, previous had been 137 has been low in past monitor given IV heparin use (13) DVT prophylaxis: IV heparin low dose until PE/NSTEMI ruled out SCD/TEDS Disposition: admit to PCU, case management consulted Follow up: PCP Dr. Michael Martniez upon discharge Patient was seen and examined in collaboration with Dr. Penn, please see addendum History of Present Illness Chief Complaint: Hypoxia noted at PCP office [employer]. Primary Care Provider: Dr. Michael Martinez This is a 68-year-old female who has significant past medical history of ischemic cardiomyopathy with systolic CHF EF 20 to 25%, presence of AICD, IDDM, CKD stage IV, HTN, mild , HLD, anemia of chronic disease, MDD, underlying dementia who presents to [facility] ED after being hypoxic at hospital follow-up PCP visit. Of significance patient hospitalized 02/04 to 02/11 at [facility] ED after initially being seen and treated medically for ER due to shortness of breath. She was found to have NSTEMI secondary to demand ischemia and acute on chronic systolic CHF exacerbation, questionable right pneumonia treated with IV antibiotics. She was treated with IV diuresis, creatinine peaked at 2.4 and transition to oral diuretics. Her oral metoprolol was increased to 75 mg twice daily. She was discharged to [facility] for subacute rehab discharged home on 02/27. She presented to PCP office today for hospital follow-up. Complained PCP of chest tightness and shortness of breath and was noted to be hypoxic. She was referred back to ED for further evaluation. Son and family members are at bedside. Son provides most of history as patient does have history of dementia and history is otherwise unreliable. States brought mother to his house on Saturday and she is currently living with him in an apartment attached to her garage. Noted she had been doing fine up until today when she became short of breath with minimal exertion. She was short of breath just walking into PCP office. Noted overall poor appetite for the past 3 to 4 days and decreased intake. "If you put food in front of her she will eat but hasn't been eating that well." Not following fluid restriction, but son doesn't feel she has been drinking much maybe 2-3 glasses daily. Does not weigh herself daily as she doesn't have scale. Son feels she may be dehydrated. Feels her mental status is at baseline. Has been taking lasix and insulin daily; however, other medications just picked up from pharmacy yesterday. Pt states 7 regular BM yesterday. She denies any recent f/c/s, dizziness, lightheaded, chest pain, palpitations, hemoptysis, abdominal pain or change in urination. Denies melena, hematochezia or hematuria. In ED patient was noted to be hypoxic 88% on room air and placed on supplemental O2. Initial chest x-ray concerning for volume overload with small bilateral pleural effusions and CHF. Her troponin is chronically elevated and today was 0.150, d-dimer elevated 1880, ECG revealed sinus tachycardia with inferior lateral T wave inversion - new compared to prior ECG. Electrolyte abnormalities notable for significant hyperglycemia of 494, corrected sodium 135, K5.8, BUN 71, creatinine 2.17. She did have a drop in hemoglobin to 8.6 and 26.6 from 10.6/31.3 at discharge. She received 500ml IVF and 10 units of regular insulin. Allergies Allergy/AdvReac Type Severity Reaction Status Date / Time No Known Allergies Allergy Unverified 03/04/19 13:16 Home Medications Home Medications Medication Instructions Recorded Confirmed Type Novolin 70/30 U-100 Insulin See Rx Instructions .ROUTE .COMPLEX 02/04/19 03/04/19 History amlodipine 5 mg PO QAM 02/04/19 03/04/19 History benzonatate 100 mg PO TID PRN 02/04/19 03/04/19 History ergocalciferol (vitamin D2) 50,000 unit PO WK 02/04/19 03/04/19 History famotidine 20 mg PO QAM 02/04/19 03/04/19 History ferrous sulfate 325 mg PO QAM 02/04/19 03/04/19 History furosemide 20 mg PO QAM 02/04/19 03/04/19 History gabapentin 100 mg PO QAM 02/04/19 03/04/19 History lisinopril 5 mg PO QAM 02/04/19 03/04/19 History lovastatin 40 mg PO HS 02/04/19 03/04/19 History paroxetine HCl 40 mg PO QAM 02/04/19 03/04/19 History aspirin [Ecotrin Low Strength] 81 mg PO QAM #30 tab 02/11/19 03/04/19 Rx nitroglycerin [Nitrostat] 0.4 mg SUBLINGUAL UD PRN #5 tab 02/11/19 03/04/19 Rx acetaminophen 650 mg PO Q4H PRN 03/04/19 03/04/19 History bisacodyl [Dulcolax (bisacodyl)] [address] DAILY PRN 03/04/19 03/04/19 History magnesium hydroxide [Milk of 30 ml PO DAILY PRN 03/04/19 03/04/19 History Magnesia] metoprolol succinate 75 mg PO BID 03/04/19 03/04/19 History miconazole nitrate 1 applic TOPICAL BID 03/04/19 03/04/19 History sodium phosphates [Fleet Enema] [address] DAILY PRN 03/04/19 03/04/19 History Past Med/Surg History Medical History (Updated 03/04/19 @ 15:25 by Silvia Tompkins PA-C) Anemia (Chronic) Anxiety and depression (Chronic) Aortic stenosis (Chronic) Chronic renal disease, stage IV (Chronic) Chronic systolic heart failure (Chronic) DM II (diabetes mellitus, type II), controlled (Chronic) GERD (gastroesophageal reflux disease) (Chronic) Hyperkalemia (Chronic) Hyperlipidemia LDL goal <70 (Chronic) Moderate mitral regurgitation (Chronic) NSTEMI (non-ST elevated myocardial infarction) (Resolved) Surgical History (Updated 03/04/19 @ 15:15 by Silvia Tompkins PA-C) AICD (automatic cardioverter/defibrillator) present (Chronic) History of appendectomy History of tubal ligation Status post cholecystectomy (Inactive) Family History Other Diabetes Social History Preferred Language: Macedonian Communication Ability: Effective Logistics Coordinator Required: No Beliefs That Will Affect Care: None Current Living Situation: Family Current Living Situation Comment: Lives with son in apartment above their garage Other Information That Helps Us Care for You: Yes Feels Safe at Home: Yes Safety Concerns: Feels Safe At This Time Smoking Status: Never smoker Hx Alcohol Use: No Hx Substance Use: No Review of Systems Review of Systems: All systems reviewed & are unremarkable except as noted in HPI & below ROS unreliable from patient Physical Exam Physical Exam: Constitutional: WD/WN, F, unkempt, appears older than state age, vitals as above, NAD, sitting up in bed, very pleasant, conversing easily but unreliable historian Head: Normocephalic, Atraumatic Eyes: PERRL, conjunctivae normal, anicteric sclerae ENMT: external ear and nose normal, oropharynx with dry mucous membranes Neck: trachea midline, no thyromegaly normal visual inspection Respiratory: normal respiratory effort, lungs clear to auscultation, no wheeze, rales, rhonchi. Normal insp/exp effort, no accessory muscle use on O2 via NC Cardiovascular: Tachycardic rate, regular rhythm, no murmur, no edema Vessels: no JVD or carotid bruit Chest: normal inspection of chest Abdomen: normal bowel sounds, soft, nontender, mild distension, no hepatosplenomegaly Musculoskeletal: no cyanosis or clubbing, extremities motor strength 5/5 Skin: no rashes, minor skin excoriations L anterior thigh, back and anterior chest, warm and dry mild turgor Neurologic: PERRL, EOMI, accommodation nl, no face palsy, no dysarthria CN's II-XI intact bilaterally and moves all extremities Psychiatric: A+O to self, place and surrounding, euthymic affect Lymphatic: no cervical or axillary lymphadenopathy : deferred Results & Data Vital Signs (Past 12 Hours) Vital Signs Temp Pulse Pulse Resp BP BP Pulse Ox 03/04/19 13:24 102 H 17 136/77 92 03/04/19 12:38 91 03/04/19 12:14 91 03/04/19 12:12 36.3 C L 108 H 22 150/87 H 91 Laboratory Results Short CBC 03/04/19 Range/Units 12:00 WBC 5.74 (4.8-10.8) K/uL Hgb 8.6 L (12.0-16.0) g/dL Hct 26.2 L (37-47) % Plt Count 116 L (130-400) K/uL BMP 03/04/19 12:00 Sodium 129 L Potassium 5.8 H Chloride 98 Carbon Dioxide 20 L BUN 71 H Creatinine 2.17 H Glucose 494 H* Calcium 9.0 Cardiac Enzymes 03/04/19 Range/Units 12:00 Troponin I 0.150 H* (0-0.045) ng/ml Liver Function 03/04/19 Range/Units 12:00 Total Bilirubin 0.8 (0.2-1) mg/dl AST 12 L (15-37) U/L ALT 15 (12-78) U/L Alkaline Phosphatase 132 H (45-117) U/L Albumin 3.1 L (3.4-5.0) gm/dl Diagnostic Findings CXR: IMPRESSION: 1. Continued radiographic evidence of congestive failure/fluid overload with small bilateral pleural effusions 2. Minimal progression in the basilar opacities, statistically atelectatic or secondary to focal edema Venous Doppler: IMPRESSION: No evidence of deep venous thrombosis. Medications Administered Discontinued Medications Sodium Chloride (Nss 1000ml) 1,000 mls @ 999 mls/hr IV .Q1H1M ONE Stop: 03/04/19 13:45 Last Admin: 03/04/19 13:23 Dose: Not Given Documented by: [id number] Sodium Chloride (Nss) 500 mls @ 999 mls/hr IV .Q31M ONE Stop: 03/04/19 13:16 Last Infusion: 03/04/19 13:25 Dose: 0 mls/hr Documented by: [id number] Admin: 03/04/19 12:54 Dose: 999 mls/hr Documented by: [id number] Insulin Human Regular (Novolin R U-100 Per Unit) 10 units IV NOW STA Stop: 03/04/19 12:46 Last Admin: 03/04/19 12:54 Dose: 10 units Documented by: [id number] Cosigned by: [id number] ECG Rate (beats per minute): 104 Rhythm: sinus tachycardia Findings: + T-wave inversion (Inferior, lateral) Code Status & VTE Plan Code Status Full Code VTE Prophylaxis Plan VTE Prophylaxis will be ordered: Yes Supervising Physician Co-Signing Physician Notes Patient is a 68-year-old female with history of ischemic cardiomyopathy with an EF of 20 to 25%, ICD, CKD 4 and other problems presents with history of transient chest pain, shortness of breath and was found to be hypoxic. Patient was evaluated by her PCP today and was sent to the ER for further evaluation. Patient is very poor historian. Currently while in the ED, patient denies any chest pain, shortness of breath. ? Compliance with medications. She was noted to have anemia with a hemoglobin of 8.6, decreased from her baseline. Also noted thrombocytopenia--chronic, elevated d-dimer. Hypoglycemic at 494. Corrected sodium levels 135. Mild troponin elevation 0.15--chronically elevated,, creatinine elevated at 2.17. Chest x-ray suggestive of mild bilateral pleural effusions. Hyperkalemia noted at 5.8. Her weight has increased by 6 kg from last admission. EKG showed sinus tachycardia, ST depressions in inferolateral leads. On exam patient is moderately built and nourished, normocephalic atraumatic, lungs are clear to auscultation, S1-S2, no murmur, AICD on right side of the chest, tachycardic, no pedal edema, abdomen soft nontender, grossly no focal neurological deficits. Patient is admitted for management of chest pain R/O ACS, CORBY, hypoxia--To R/O PE; hyperglycemia, hyperkalemia. Patient looks clinically dehydrated. Agree with starting IV heparin till ACS, PE ruled out. Will check echo for wall motion abnormality. Trend troponins, monitor renal function, repeat EKG. Agree with holding lisinopril. Received IV fluids in ED. Will reassess and treat with IV fluids as needed given history of significant ischemic cardiomyopathy. Check fecal occult on the patient denies any bleeding issues. Will consult nephrology, cardiology for assistance. Will request for pacemaker interrogation. Agree with IV calcium gluconate. Will monitor potassium levels. I personally reviewed the record. Patient is interviewed and examined at bedside. Patient's care is coordinated with Silvia Tompkins PA-C. Please refer to the documentation above for details of patient's presentation and for discussion of other issues.
[2019-03-04] MEDS ORDERED: CALCIUM GLUCONATE 10% 1,000 MG in SODIUM CHLORIDE 0.9% 50 ML IV ONE (14:45)
[2019-03-04] MEDS ORDERED: Heparin IV Low Dose *NO* Bolus IV SCH ×3 (14:45→17:00)
--- NOTE | 2019-03-04 15:00 | Emergency Department Note ---
Entered by Prudence Donaldson acting as a scribe for History of Present Illness General Chief complaint: Respiratory Problems Source: patient Mode of arrival: EMS Limitations: no limitations History of Present Illness Onset (ago): day(s) 1 Location: chest Radiation: non-radiation Pain Consistency: + constant Relieved By: + none Exacerbated By: + movement Associated symptoms: + chest pain Treatments prior to arrival: other (Oxygen) The patient is a 68 year old female who presents to the ED with complaints of respiratory issues. She was at [facility] this morning for a new patient appointment and was found to be in the mid 80's on room air. They placed her on 2L NC and she came up into the 90's. She does not wear Oxygen at home. She states she has been feeling more tired and weak recently, and experiences shortness of breath with movement. She admits to some intermittent chest pain since yesterday, but states it has now resolved. Patient denies any abdominal pain, nausea vomiting or diarrhea. No urinary frequency urgency. Denies any swelling of her calves. Home Medications Home Medications Medication Instructions Recorded Confirmed Type Novolin 70/30 U-100 Insulin See Rx Instructions .ROUTE .COMPLEX 02/04/19 03/04/19 History amlodipine 5 mg PO QAM 02/04/19 03/04/19 History benzonatate 100 mg PO TID PRN 02/04/19 03/04/19 History ergocalciferol (vitamin D2) 50,000 unit PO WK 02/04/19 03/04/19 History famotidine 20 mg PO QAM 02/04/19 03/04/19 History ferrous sulfate 325 mg PO QAM 02/04/19 03/04/19 History furosemide 20 mg PO QAM 02/04/19 03/04/19 History gabapentin 100 mg PO QAM 02/04/19 03/04/19 History lisinopril 5 mg PO QAM 02/04/19 03/04/19 History lovastatin 40 mg PO HS 02/04/19 03/04/19 History paroxetine HCl 40 mg PO QAM 02/04/19 03/04/19 History aspirin [Ecotrin Low Strength] 81 mg PO QAM #30 tab 02/11/19 03/04/19 Rx nitroglycerin [Nitrostat] 0.4 mg SUBLINGUAL UD PRN #5 tab 02/11/19 03/04/19 Rx acetaminophen 650 mg PO Q4H PRN 03/04/19 03/04/19 History bisacodyl [Dulcolax (bisacodyl)] 10 mg TX DAILY PRN 03/04/19 03/04/19 History magnesium hydroxide [Milk of 30 ml PO DAILY PRN 03/04/19 03/04/19 History Magnesia] metoprolol succinate 75 mg PO BID 03/04/19 03/04/19 History miconazole nitrate 1 applic TOPICAL BID 03/04/19 03/04/19 History sodium phosphates [Fleet Enema] 118 ml TX DAILY PRN 03/04/19 03/04/19 History Allergies Allergy/AdvReac Type Severity Reaction Status Date / Time No Known Allergies Allergy Unverified 03/04/19 13:16 Past Med/Surg History Medical History (Updated 03/04/19 @ 14:58 by Silvia Tompkins PA-C) Anemia (Chronic) Anxiety and depression (Chronic) Aortic stenosis (Chronic) Chronic renal disease, stage IV (Chronic) Chronic systolic heart failure (Chronic) DM II (diabetes mellitus, type II), controlled (Chronic) GERD (gastroesophageal reflux disease) (Chronic) Hyperkalemia (Chronic) Hyperlipidemia LDL goal <70 (Chronic) Moderate mitral regurgitation (Chronic) NSTEMI (non-ST elevated myocardial infarction) (Resolved) Surgical History (Updated 03/04/19 @ 14:31 by Silvia Tompkins PA-C) AICD (automatic cardioverter/defibrillator) present (Chronic) History of appendectomy History of tubal ligation Family History Other Diabetes Social History Preferred Language: Sudanese 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 and A total of 10 systems reviewed and were otherwise negative Physical Exam Vital Signs Vital Signs - 24 hr 03/04/19 12:12 03/04/19 12:14 03/04/19 12:38 Temperature 36.3 C L Temperature Source Oral Pulse Rate 108 H Pulse Rate [Finger] Respiratory Rate 22 Blood Pressure 150/87 H Blood Pressure [Right Arm] Blood Pressure Mean 108 Blood Pressure Mean [Right Arm] Pulse Oximetry 91 91 91 Oxygen Delivery Method Room Air Room Air Nasal Cannula Oxygen Flow Rate 1 Sepsis Recent Fever Within 48 Hours No Sepsis Action Taken by Nursing No Action Required 03/04/19 13:24 03/04/19 14:45 Temperature Temperature Source Pulse Rate Pulse Rate [Finger] 102 H 103 H Respiratory Rate 17 17 Blood Pressure Blood Pressure [Right Arm] 136/77 138/72 Blood Pressure Mean Blood Pressure Mean [Right Arm] 96 94 Pulse Oximetry 92 92 Oxygen Delivery Method Nasal Cannula Nasal Cannula Oxygen Flow Rate 1 2 Sepsis Recent Fever Within 48 Hours Sepsis Action Taken by Nursing GENERAL: Patient is alert, chronically ill-appearing on nasal canula, no distress, non-toxic EYE EXAM: normal conjunctiva OROPHARYNX: no exudate, no erythema, lips, buccal mucosa, and tongue normal and mucous membranes are moist NECK: supple, no nuchal rigidity, no adenopathy, non-tender LUNGS: Lung sounds are diminished and course at the bilateral bases. Normal chest wall mechanics HEART: Positive CASSIE, S1 normal and S2 normal, ABDOMEN: abdomen soft, non-tender, normo-active bowel sounds, no masses, no rebound or guarding. RECTAL: Heme negative BACK: Back is symmetrical on inspection and there is no deformity, no midline tenderness, no CVA tenderness. SKIN: no rashes and no bruising UPPER EXTREMITIES: upper extremities are grossly normal. LOWER EXTREMITIES: No pitting edema. NEURO EXAM: Patient is oriented to person, place but not year, no focal deficits. Course Course ED COURSE: Vital signs were reviewed and showed the patient is hypertensive The patients medical record was reviewed The above diagnostic studies were performed and reviewed. ED treatments and interventions as stated above. 1147: The patient was evaluated in room C6. A complete history and physical examination was performed. 1300: I discussed the patients [facility] The patient will be further evaluated. 1320: Upon reevaluation, the patient is resting comfortably. I discussed my findings with the patient and she understands and agrees with the treatment plan. Based on the patients age, coexisting illnesses, exam and lab findings the decision to treat as an outpatient was made. The patient remained stable while under my care. The patient will be evaluated for further management. Administered Medications Calcium Gluconate 1,000 mg/ (Sodium Chloride) 60 mls @ 240 mls/hr IV 1445 ONE Stop: 03/04/19 14:59 Last Admin: 03/04/19 14:55 Dose: 240 mls/hr Documented by: [id number] Discontinued Medications Sodium Chloride (Nss 1000ml) 1,000 mls @ 999 mls/hr IV .Q1H1M ONE Stop: 03/04/19 13:45 Last Admin: 03/04/19 13:23 Dose: Not Given Documented by: [id number] Sodium Chloride (Nss) 500 mls @ 999 mls/hr IV .Q31M ONE Stop: 03/04/19 13:16 Last Infusion: 03/04/19 13:25 Dose: 0 mls/hr Documented by: [id number] Admin: 03/04/19 12:54 Dose: 999 mls/hr Documented by: [id number] Insulin Human Regular (Novolin R U-100 Per Unit) 10 units IV NOW STA Stop: 03/04/19 12:46 Last Admin: 03/04/19 12:54 Dose: 10 units Documented by: [id number] Cosigned by: [id number] Critical Care Time Critical Care Time: Yes Total Critical Care Time: 32 I have personally spent 32 minutes of critical care time in the direct management of this patient. This includes bedside care, interpretation of diagnostic studies, and testing, discussion with consultants, patient, and family members, and other required patient management activities. This 32 minutes is in excess of all separately billable procedures. Medical Decision Making Differential Diagnosis Differential diagnoses includes but is not limited to pneumonia, bronchitis, COPD/Asthma exacerbation, pneumothorax, pulmonary embolism, congestive heart failure, acute coronary syndrome Medical Records Attestation: I reviewed the patient's medical records. Home Medications Current Medication List: was personally reviewed by me Laboratory Data Attestation: I reviewed the patient's lab results. Result diagrams: 03/04/19 12:00 03/04/19 12:00 Lab Results 03/04/19 03/04/19 03/04/19 Range/Units 12:00 12:00 12:00 WBC 5.74 (4.8-10.8) K/uL RBC 2.67 L (4.2-5.4) M/uL Hgb 8.6 L (12.0-16.0) g/dL Hct 26.2 L (37-47) % MCV 98.1 (80-100) fL MCH 32.2 (25-34) pg MCHC 32.8 (32-36) g/dL RDW Std Deviation 49.2 H (36.4-46.3) fL RDW Coeff of Nevaeh 13.9 (11.5-14.5) % Plt Count 116 L (130-400) K/uL MPV 10.0 (7.4-10.4) fL Immature Gran % (Auto) 0.7 % Neut % (Auto) 70.6 % Lymph % (Auto) 19.3 % [place] % (Auto) 9.4 % Eos % (Auto) 0.0 % Baso % (Auto) 0.0 % Immature Gran # (Auto) 0.04 H (0.00-0.02) K/uL Neut # (Auto) 4.05 (1.4-6.5) K/uL Lymph # (Auto) 1.11 L (1.2-3.4) K/uL [place] # (Auto) 0.54 (0.11-0.59) K/uL Eos # (Auto) 0.00 (0-0.5) K/uL Baso # (Auto) 0.00 (0-0.2) K/uL D-Dimer 1880 H* (0-500) ug/L FEU Sodium 129 L (136-145) mmol/L Potassium 5.8 H (3.5-5.1) mmol/L Chloride 98 (98-107) mmol/L Carbon Dioxide 20 L (21-32) mmol/L Anion Gap 11.0 (3-11) BUN 71 H (7-18) mg/dl Creatinine 2.17 H (0.6-1.2) mg/dl Est Cr Clr Drug Dosing 26.1 ml/min Est GFR ( Amer) 26.1 Est GFR (Non-Af Amer) 22.5 BUN/Creatinine Ratio 32.6 H (10-20) Glucose 494 H* (70-99) mg/dl Calcium 9.0 (8.5-10.1) mg/dl Total Bilirubin 0.8 (0.2-1) mg/dl AST 12 L (15-37) U/L ALT 15 (12-78) U/L Alkaline Phosphatase 132 H (45-117) U/L Troponin I 0.150 H* (0-0.045) ng/ml Total Protein 8.4 H (6.4-8.2) gm/dl Albumin 3.1 L (3.4-5.0) gm/dl Globulin 5.3 H (2.5-4.0) gm/dl Albumin/Globulin Ratio 0.6 L (0.9-2) Lipase 179 (73-393) U/L Beta-Hydroxybutyric Acd 2.07 (0.2-2.81) mg/dl Imaging Data Radiologist's Impression: Radiology results as stated below per my review and the radiologist's interpretation: XR chest 1V portable CLINICAL HISTORY: Atypical chest pain COMPARISON STUDY: 02/05/2019 FINDINGS: The cardiac and mediastinal contours remain stable. There is a right subclavian pacer/defibrillator. There is radiographic evidence of mild conges tive failure. There are small bilateral pleural effusions. There is no lobar consolidation. Basilar opacities, likely represent atelectasis or focal edema.[ IMPRESSION: 1. Continued radiographic evidence of congestive failure/fluid overload with small bilateral pleural effusions 2. Minimal progression in the basilar opacities, statistically atelectatic or secondary to focal edema Electronically signed by: Palomo Salinas M.D. 03/04/2019 12:22 PM US venous doppler LE CLINICAL HISTORY: 68 years-old Female presenting with + trop sob. TECHNIQUE: Real-time grayscale and color and spectral Doppler ultrasound imaging of the veins of the bilateral lower extremities was performed. Compression and augmentation were also utilized. COMPARISON: 02/28/2016. FINDINGS: RIGHT: Common femoral vein: Patent. Greater saphenous vein (superficial): Patent. Deep femoral vein: Patent. Femoral vein: Patent. Popliteal vein: Patent. Calf veins: Patent. LEFT: Common femoral vein: Patent. Greater saphenous vein (superficial): Patent. Deep femoral vein: Patent. Femoral vein: Patent. Popliteal vein: Patent. Calf veins: Patent. Other: None. IMPRESSION: No evidence of deep venous thrombosis. Electronically signed by: Cornelius Huffman M.D. 03/04/2019 1:17 PM ECG Data Attestation: I personally reviewed and interpreted this ECG as follows: Indication: + SOB/dyspnea Rate (beats per minute): 100 Rhythm: + sinus tachycardia ECG [place]: + Normal ECG ST segments: + ST depression (Inferior) and + T-wave inversions (Lateral) ECG Findings: + PVCs Comparison ECG Date: from (02/06/2019) Change: the following changes noted (ST depressions are new, lateral TWI are new) Blood Pressure Blood Pressure Findings: Elevated blood pressure Blood Pressure Disposition: further management by hospitalist MDM Narrative Patient is a 68-year-old female who presents the ER referred in by her PCP following a new visit at [facility] in [place] for hypoxia tachycardia and shortness of breath. She noted that she had chest pain shortness of breath there. Upon arrival she is brought in by EMS. She was placed on 2 L and taken off initially upon arrival and found to be hypoxic into the high 80s. IV was established blood work was obtained. Hemoglobin was slightly low at 8.6 down from 10. D-dimer was positive at 1800. BMP with a mild hyponatremia at 129. Potassium slightly elevated at 5.8. Creatinine was up at 2.17 from baseline of 1.8. Glucose was elevated at 500. Troponin was elevated 0.150. Previous admissions are all elevated. Beta hydroxybutyric was negative. Patient was given a small bolus of IV fluids at 500 due to a chest x- ray which showed bilateral pleural effusions. Ultrasound shows no DVT. Patient was updated bedside discussed with hospitalist admitted for further work-up of her hypoxia as she was on 2 L throughout the ER stay. Her EKG did show new ST d epressions in the inferior and lateral along with some T wave changes but troponin is actually less than previous. Impression & Plan Hypoxia, Elevated troponin, Pleural effusion, CKD (chronic kidney disease) Discharge Plan Visit Data Chief Complaint: Respiratory Problems ED Provider: Eliseo Randall Discharge Problem: Hypoxia, Elevated troponin, Pleural effusion, CKD (chronic kidney disease) Patient Disposition: Being Evaluated by Hospitalist Forms Stand Alone Forms: My [facility] [place] Prescriptions Prescriptions: No Action lovastatin 40 mg tablet 40 mg PO HS RF: 0 Novolin 70/30 U-100 Insulin 100 unit/mL (70-30) suspension See Rx Instructions .ROUTE .COMPLEX RF: 0 amlodipine 5 mg tablet 5 mg PO QAM RF: 0 famotidine 20 mg tablet 20 mg PO QAM RF: 0 benzonatate 100 mg capsule 100 mg PO TID PRN (Reason: Cough) RF: 0 ferrous sulfate 325 mg (65 mg iron) tablet 325 mg PO QAM RF: 0 lisinopril 5 mg tablet 5 mg PO QAM RF: 0 furosemide 20 mg tablet 20 mg PO QAM RF: 0 gabapentin 100 mg capsule 100 mg PO QAM RF: 0 ergocalciferol (vitamin D2) 50,000 unit capsule 50,000 unit PO WK RF: 0 paroxetine HCl 40 mg tablet 40 mg PO QAM RF: 0 aspirin [Ecotrin Low Strength] 81 mg Tablet,Delayed Release (Dr/Ec) 81 mg PO QAM Qty: 30 RF: 0 nitroglycerin [Nitrostat] 0.4 mg Tablet, Sublingual 0.4 mg sublingual UD PRN (Reason: chest pain) Qty: 5 RF: 0 acetaminophen 325 mg Tablet 650 mg PO Q4H PRN (Reason: Fever/pain) RF: 0 miconazole nitrate 2 % Cream 1 applic TOPICAL BID RF: 0 magnesium hydroxide [Milk of Magnesia] 400 mg/5 mL Suspension 30 ml PO DAILY PRN (Reason: Constipation) RF: 0 bisacodyl [Dulcolax (bisacodyl)] 10 mg Suppository 10 mg TX DAILY PRN (Reason: Constipation) RF: 0 Fleet Enema 19-7 gram/118 mL Enema 118 ml TX DAILY PRN (Reason: Constipation) RF: 0 metoprolol succinate 50 mg tablet extended release 24 hr 75 mg PO BID RF: 0 Referrals Referrals: PCP,NO [Primary Care Provider] - The scribe's documentation has been prepared under my direction and personally reviewed by me in its entirety. I confirm that the note above accurately reflects all work, treatment, procedures, and medical decision making performed by me.
[2019-03-04] MEDS ORDERED: GLUCAGON FOR INJ 1 MG VIAL SQ PRN (15:31)
[2019-03-04] MEDS ORDERED: DEXTROSE 50% 50 ML SYRINGE IV PRN (15:31)
[2019-03-04] MEDS ORDERED: ONDANSETRON INJ 2 MG/ML 2 ML VIAL IV PRN (15:31)
[2019-03-04] MEDS ORDERED: GLUCOSE 40% GEL 15 GM TUBE PO PRN (15:31)
[2019-03-04] MEDS ORDERED: NITROGLYCERIN SL 0.4 MG/TAB TAB SL PRN (15:31)
[2019-03-04] MEDS ORDERED: GLUCOSE 10 TABS/TUBE PO PRN (15:31)
[2019-03-04] MEDS ORDERED: ACETAMINOPHEN 325 MG TAB PO PRN (15:31)
[2019-03-04] MEDS ORDERED: POLYETHYLENE (MIRALAX) 17 GM PACK PO PRN (15:31)
[2019-03-04 15:47] LABS: Thyroid Stimulating Hormone 1.63 uIu/ml (0.300-4.500)
[2019-03-04] MEDS ORDERED: PHARMACY GLYCEMIC MGMT CONSULT PRN (15:48)
[2019-03-04] MEDS ORDERED: INSULIN HUMAN NPH SC ONE (16:30)
--- NOTE | 2019-03-04 16:56 | Nuclear Medicine Report ---
NUCLEAR MEDICINE VENTILATION/PERFUSION SCAN CLINICAL HISTORY: Elevated d-dimer. Evaluate for evidence of pulmonary embolus. COMPARISON: CT scan February 29, 2016. Chest radiograph March 04, 2019. TECHNIQUE: For the ventilation portion of this exam, 32.5 mCi of DTPA was inhaled at 3:45 PM on Nov 2018. Immediately following inhalation, imaging of the chest was carried out in the anterio r, posterior, left lateral, right lateral, LPO, RPO, ZEUS and DUNCAN projections. For the perfusion port ion of exam, 5.2 mCi of technetium 99m MAA was injected IV at 4:25 PM on March 04, 2019. Immediate ly following injection, imaging of the chest was carried out in the same projections. FINDINGS: Photopenic defect projecting over the right lung is due to a pacemaker. No mismatched defe cts are identified on this examination. Central radiotracer deposition is noted on the ventilation po rtion of this exam. This study is low probability for pulmonary embolus. IMPRESSION: Low probability for pulmonary embolus. Electronically signed by: Josr Gaines M.D. 03/04/2019 4:55 PM
[2019-03-04] MEDS: INSULIN ASPART 100 UNITS/ML 3 ML PEN SC SCH ×2 (17:06→20:24)
[2019-03-04 17:30] LABS: Hematocrit (blood only) 24.8 % (37-47); Hemoglobin 8.4 g/dL (12.0-16.0); Mean Corpuscular Hemoglobin 32.4 pg (25-34); Mean Corpuscular Hgb Conc 33.9 g/dL (32-36); Mean Corpuscular Volume 95.8 fL (80-100); Mean Platelet Volume 10.4 fL (7.4-10.4); Platelet Count 109 K/uL (130-400); RDW Coefficient of Variation 13.8 % (11.5-14.5); Red Blood Count 2.59 M/uL (4.2-5.4); White Blood Count 5.52 K/uL (4.8-10.8)
[2019-03-04 17:56] LABS: BUN Creatinine Ratio 32.3 (10-20); Calcium 9.4 mg/dl (8.5-10.1); Creatinine Clr Calc Pharmacy 25.8 ml/min; Est GFR (African American) 28.8; Est GFR (Non-African American) 24.8; Troponin I 0.149 ng/ml (0-0.045)
[2019-03-04 18:11] LABS: Beta-Hydroxybutyrate 2.96 mg/dl (0.2-2.81); Potassium 4.8 mmol/L (3.5-5.1)
[2019-03-04] MEDS: LOVASTATIN 20 MG TAB PO SCH (19:58)
[2019-03-04] MEDS: METOPROLOL SUCC 25MG EXT REL TAB PO SCH (19:58)
[2019-03-04 23:12] LABS: Hematocrit (blood only) 25.4 % (37-47); Hemoglobin 8.5 g/dL (12.0-16.0)
[2019-03-05] MEDS: CARBOHYDRATES FOR HYPOGLYCEMIA PO PRN (00:07)
[2019-03-05] MEDS: INSULIN ASPART 100 UNITS/ML 3 ML PEN SC SCH ×6 (00:14→20:38)
[2019-03-05] MEDS ORDERED: PARoxetine HCl 20 MG TAB PO SCH (09:00)
[2019-03-05] MEDS: FAMOTIDINE 20 MG TAB PO SCH (09:10)
[2019-03-05] MEDS: AMLODIPINE BESYLATE 5 MG TAB PO SCH (09:10)
[2019-03-05] MEDS: FERROUS SULFATE 325 MG TAB PO SCH (09:11)
[2019-03-05] MEDS: METOPROLOL SUCC 25MG EXT REL TAB PO SCH ×2 (09:11→20:49)
[2019-03-05] MEDS: ASPIRIN 81 MG ECTAB PO SCH (09:11)
[2019-03-05] MEDS: GABAPENTIN 100 MG CAP PO SCH (09:11)
[2019-03-05 09:16] LABS: Eosinophils # (auto) 0.03 K/uL (0-0.5); Eosinophils % (auto) 0.7 %; Hematocrit (blood only) 25.3 % (37-47); Hemoglobin 8.6 g/dL (12.0-16.0); Immature Granulocytes # (auto) 0.02 K/uL (0.00-0.02); Immature Granulocytes % (auto) 0.5 %; Lymphocytes # (auto) 1.81 K/uL (1.2-3.4); Lymphocytes % (auto) 42.4 %; Mean Corpuscular Hemoglobin 33.2 pg (25-34); Mean Corpuscular Volume 97.7 fL (80-100); Mean Platelet Volume 9.6 fL (7.4-10.4); Monocytes # (auto) 0.44 K/uL (0.11-0.59); Monocytes % (auto) 10.3 %; Neutrophils # (auto) 1.97 K/uL (1.4-6.5); Neutrophils % (auto) 46.1 %; Platelet Count 108 K/uL (130-400); RDW Coefficient of Variation 13.9 % (11.5-14.5); Red Blood Count 2.59 M/uL (4.2-5.4); White Blood Count 4.27 K/uL (4.8-10.8)
[2019-03-05 09:48] LABS: BUN Creatinine Ratio 32.7 (10-20); Calcium 9.3 mg/dl (8.5-10.1); Creatinine Clr Calc Pharmacy 28.5 ml/min; Est GFR (African American) 32.5; Magnesium 2.3 mg/dl (1.8-2.4); Potassium 4.9 mmol/L (3.5-5.1)
[2019-03-05 10:05] LABS: Ferritin 1027.9 ng/ml (8-388); Troponin I 0.168 ng/ml (0-0.045)
[2019-03-05 10:09] LABS: Folate (Folic Acid) 18.56 ng/ml (>5.38)
--- NOTE | 2019-03-05 10:11 | Cardiology Consultation ---
Date of Consultation March 05, 2019 Assessment & Plan (1) SOB (shortness of breath): (2) Hypoxia: (3) CHF (congestive heart failure): (4) AICD (automatic cardioverter/defibrillator) present: (5) Chronic systolic heart failure: (6) DM II (diabetes mellitus, type II), controlled: (7) Chronic renal disease, stage IV: The patient appears to be comfortable during my clinical evaluation. She is not a good historian. She may have cognitive slowing or dementia and there may be an element of depression according to records. She may have problems caring for herself at home and social service should be involved as she may benefit from placement. I would recommend no additional cardiac work-up at this time. History of Present Illness Attending Physician: Erica Wagner MD History of Present Illness This is a 68-year-old female who was recently discharged from the hospital. She has a history of an ischemic cardiomyopathy with a previous anterior wall myocardial infarction, chronic kidney disease and diabetes. She also has cognitive slowing or dementia. She is not a good historian and the information is taken from the medical record. According the patient she was at home and her family brought her to the emergency department. She does not know why. She denies shortness of breath or chest pain. Upon arrival to the emergency department she was found to be hypoxic and admitted with congestive heart failure. PAST MEDICAL HISTORY: 1.Ischemic cardiomyopathy EF 33%. Cardiac catheterization deferred by patient. 2.Chronic kidney disease. 3.Nuclear stress test March 27, 2016 with moderate sized infarct of the anterior and anterior septal myocardium with only mild yesenia-infarct ischemia. 4.Diabetes. 5.Inactivity. 6.Dementia. Allergies Allergy/AdvReac Type Severity Reaction Status Date / Time No Known Allergies Allergy Unverified 03/04/19 13:16 Home Medications Home Medications Medication Instructions Recorded Confirmed Type Novolin 70/30 U-100 Insulin See Rx Instructions .ROUTE .COMPLEX 02/04/19 03/04/19 History amlodipine 5 mg PO QAM 02/04/19 03/04/19 History benzonatate 100 mg PO TID PRN 02/04/19 03/04/19 History ergocalciferol (vitamin D2) 50,000 unit PO WK 02/04/19 03/04/19 History famotidine 20 mg PO QAM 02/04/19 03/04/19 History ferrous sulfate 325 mg PO QAM 02/04/19 03/04/19 History furosemide 20 mg PO QAM 02/04/19 03/04/19 History gabapentin 100 mg PO QAM 02/04/19 03/04/19 History lisinopril 5 mg PO QAM 02/04/19 03/04/19 History lovastatin 40 mg PO HS 02/04/19 03/04/19 History paroxetine HCl 40 mg PO QAM 02/04/19 03/04/19 History aspirin [Ecotrin Low Strength] 81 mg PO QAM #30 tab 02/11/19 03/04/19 Rx nitroglycerin [Nitrostat] 0.4 mg SUBLINGUAL UD PRN #5 tab 02/11/19 03/04/19 Rx acetaminophen 650 mg PO Q4H PRN 03/04/19 03/04/19 History bisacodyl [Dulcolax (bisacodyl)] 10 mg IA DAILY PRN 03/04/19 03/04/19 History magnesium hydroxide [Milk of 30 ml PO DAILY PRN 03/04/19 03/04/19 History Magnesia] metoprolol succinate 75 mg PO BID 03/04/19 03/04/19 History miconazole nitrate 1 applic TOPICAL BID 03/04/19 03/04/19 History sodium phosphates [Fleet Enema] 118 ml IA DAILY PRN 03/04/19 03/04/19 History Patient History Medical History Anemia (Chronic) Anxiety and depression (Chronic) Aortic stenosis (Chronic) Chronic renal disease, stage IV (Chronic) Chronic systolic heart failure (Chronic) DM II (diabetes mellitus, type II), controlled (Chronic) GERD (gastroesophageal reflux disease) (Chronic) Hyperkalemia (Chronic) Hyperlipidemia LDL goal <70 (Chronic) Moderate mitral regurgitation (Chronic) NSTEMI (non-ST elevated myocardial infarction) (Resolved) Surgical History AICD (automatic cardioverter/defibrillator) present (Chronic) History of appendectomy History of tubal ligation Status post cholecystectomy (Inactive) Family History Other Diabetes Social History Preferred Language: Barbadian Communication Ability: Effective 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 Beliefs That Will Affect Care: None marital status: / Current Living Situation: Family Current Living Situation Comment: Lives with son in apartment above their fay [address]ade[address] Other Information That Helps Us Care for You: Yes Feels Safe at Home: Yes Safety Concerns: Feels Safe At This Time Smoking Status: Never smoker Hx Alcohol Use: No Hx Substance Use: No Review of Systems Review of Systems: All systems reviewed & are unremarkable except as noted in HPI & below Nothing additional to add Physical Exam Physical Exam: General: no acute distress and stated age Head: normocephalic, no masses, lesions, tenderness or abnormalities Eyes: conjunctiva are pink and non-injected, sclera clear Neck: supple, no adenopathy, no bruits, normal jugular venous pulse, no hepatoju gular reflux Chest: normal shape and normal respiratory effort Lungs: clear to auscultation and percussion Cardiac Exam: - regular rate & rhythm, no murmurs gallops or rubs - normal S1, normal S2 Pulses: 2(+) throughout Abdomen: abdomen soft, non-tender, no abnormal masses and no hepatosplenomegaly Musculoskeletal: no gait disturbance, no joint inflammation, no deforming arthritis Extremities: no edema and no cyanosis Neuro: grossly normal exam Results & Data Vital Signs (Past 12 Hours) Vital Signs Temp Pulse Pulse Resp BP Pulse Ox 03/05/19 07:50 36.6 C 89 20 118/70 93 03/05/19 04:48 37.6 C H 88 20 120/73 92 03/04/19 23:48 96 H 03/04/19 23:31 36.9 C 106 H 20 134/75 91 Laboratory Results Laboratory Results - last 24 hr 03/04/19 03/04/19 03/04/19 12:00 12:00 12:00 WBC 5.74 RBC 2.67 L Hgb 8.6 L Hct 26.2 L MCV 98.1 MCH 32.2 MCHC 32.8 RDW Std Deviation 49.2 H RDW Coeff of Nevaeh 13.9 Plt Count 116 L MPV 10.0 Immature Gran % (Auto) 0.7 Neut % (Auto) 70.6 Lymph % (Auto) 19.3 Cameron % (Auto) 9.4 Eos % (Auto) 0.0 Baso % (Auto) 0.0 Immature Gran # (Auto) 0.04 H Neut # (Auto) 4.05 Lymph # (Auto) 1.11 L Cameron # (Auto) 0.54 Eos # (Auto) 0.00 Baso # (Auto) 0.00 D-Dimer 1880 H* Sodium 129 L Potassium 5.8 H Chloride 98 Carbon Dioxide 20 L Anion Gap 11.0 BUN 71 H Creatinine 2.17 H Est Cr Clr Drug Dosing 26.1 Est GFR ( Amer) 26.1 Est GFR (Non-Af Amer) 22.5 BUN/Creatinine Ratio 32.6 H Glucose 494 H* POC Glucose Calcium 9.0 Magnesium Iron TIBC Transferrin Ferritin Total Bilirubin 0.8 AST 12 L ALT 15 Alkaline Phosphatase 132 H Total Creatine Kinase 47 Troponin I 0.150 H* NT-Pro-B Natriuret Pep 22496 H Total Protein 8.4 H Albumin 3.1 L Globulin 5.3 H Albumin/Globulin Ratio 0.6 L Lipase 179 Vitamin B12 Folate Beta-Hydroxybutyric Acd 2.07 Procalcitonin TSH 1.630 Blood Type Antibody Screen 03/04/19 03/04/19 03/04/19 16:59 17:07 17:07 WBC 5.52 RBC 2.59 L Hgb 8.4 L Hct 24.8 L MCV 95.8 MCH 32.4 MCHC 33.9 RDW Std Deviation 48.0 H RDW Coeff of Nevaeh 13.8 Plt Count 109 L MPV 10.4 Immature Gran % (Auto) Neut % (Auto) Lymph % (Auto) Cameron % (Auto) Eos % (Auto) Baso % (Auto) Immature Gran # (Auto) Neut # (Auto) Lymph # (Auto) Cameron # (Auto) Eos # (Auto) Baso # (Auto) D-Dimer Sodium Potassium Chloride Carbon Dioxide Anion Gap BUN Creatinine Est Cr Clr Drug Dosing Est GFR ( Amer) Est GFR (Non-Af Amer) BUN/Creatinine Ratio Glucose POC Glucose 401 H* Calcium Magnesium Iron TIBC Transferrin Ferritin Total Bilirubin AST ALT Alkaline Phosphatase Total Creatine Kinase Troponin I NT-Pro-B Natriuret Pep Total Protein Albumin Globulin Albumin/Globulin Ratio Lipase Vitamin B12 Folate Beta-Hydroxybutyric Acd Procalcitonin 0.26 TSH Blood Type Antibody Screen 03/04/19 03/04/19 03/04/19 17:07 20:10 22:58 WBC RBC Hgb 8.5 L Hct 25.4 L MCV MCH MCHC RDW Std Deviation RDW Coeff of Nevaeh Plt Count MPV Immature Gran % (Auto) Neut % (Auto) Lymph % (Auto) Cameron % (Auto) Eos % (Auto) Baso % (Auto) Immature Gran # (Auto) Neut # (Auto) Lymph # (Auto) Cameron # (Auto) Eos # (Auto) Baso # (Auto) D-Dimer Sodium 132 L Potassium 4.8 D Chloride 102 Carbon Dioxide 21 Anion Gap 9.0 BUN 65 H Creatinine 2.00 H Est Cr Clr Drug Dosing 25.8 Est GFR ( Amer) 28.8 Est GFR (Non-Af Amer) 24.8 BUN/Creatinine Ratio 32.3 H Glucose 377 H* POC Glucose 247 H Calcium 9.4 Magnesium Iron TIBC Transferrin Ferritin Total Bilirubin AST ALT Alkaline Phosphatase Total Creatine Kinase Troponin I 0.149 H* NT-Pro-B Natriuret Pep Total Protein Albumin Globulin Albumin/Globulin Ratio Lipase Vitamin B12 Folate Beta-Hydroxybutyric Acd 2.96 H Procalcitonin TSH Blood Type Antibody Screen 03/04/19 03/05/19 03/05/19 22:58 00:01 00:05 WBC RBC Hgb Hct MCV MCH MCHC RDW Std Deviation RDW Coeff of Nevaeh Plt Count MPV Immature Gran % (Auto) Neut % (Auto) Lymph % (Auto) Cameron % (Auto) Eos % (Auto) Baso % (Auto) Immature Gran # (Auto) Neut # (Auto) Lymph # (Auto) Cameron # (Auto) Eos # (Auto) Baso # (Auto) D-Dimer Sodium Potassium Chloride Carbon Dioxide Anion Gap BUN Creatinine Est Cr Clr Drug Dosing Est GFR ( Amer) Est GFR (Non-Af Amer) BUN/Creatinine Ratio Glucose POC Glucose 57 L* 55 L* Calcium Magnesium Iron TIBC Transferrin Ferritin Total Bilirubin AST ALT Alkaline Phosphatase Total Creatine Kinase Troponin I 0.204 H* NT-Pro-B Natriuret Pep Total Protein Albumin Globulin Albumin/Globulin Ratio Lipase Vitamin B12 Folate Beta-Hydroxybutyric Acd Procalcitonin TSH Blood Type Antibody Screen 03/05/19 03/05/19 03/05/19 00:22 03:56 07:14 WBC RBC Hgb Hct MCV MCH MCHC RDW Std Deviation RDW Coeff of Nevaeh Plt Count MPV Immature Gran % (Auto) Neut % (Auto) Lymph % (Auto) Cameron % (Auto) Eos % (Auto) Baso % (Auto) Immature Gran # (Auto) Neut # (Auto) Lymph # (Auto) Cameron # (Auto) Eos # (Auto) Baso # (Auto) D-Dimer Sodium Potassium Chloride Carbon Dioxide Anion Gap BUN Creatinine Est Cr Clr Drug Dosing Est GFR ( Amer) Est GFR (Non-Af Amer) BUN/Creatinine Ratio Glucose POC Glucose 75 174 H 179 H Calcium Magnesium Iron TIBC Transferrin Ferritin Total Bilirubin AST ALT Alkaline Phosphatase Total Creatine Kinase Troponin I NT-Pro-B Natriuret Pep Total Protein Albumin Globulin Albumin/Globulin Ratio Lipase Vitamin B12 Folate Beta-Hydroxybutyric Acd Procalcitonin TSH Blood Type Antibody Screen 03/05/19 03/05/19 03/05/19 09:06 09:06 09:06 WBC 4.27 L RBC 2.59 L Hgb 8.6 L Hct 25.3 L MCV 97.7 MCH 33.2 MCHC 34.0 RDW Std Deviation 49.0 H RDW Coeff of Nevaeh 13.9 Plt Count 108 L MPV 9.6 Immature Gran % (Auto) 0.5 Neut % (Auto) 46.1 Lymph % (Auto) 42.4 Cameron % (Auto) 10.3 Eos % (Auto) 0.7 Baso % (Auto) 0.0 Immature Gran # (Auto) 0.02 Neut # (Auto) 1.97 Lymph # (Auto) 1.81 Cameron # (Auto) 0.44 Eos # (Auto) 0.03 Baso # (Auto) 0.00 D-Dimer Sodium 138 Potassium 4.9 Chloride 107 Carbon Dioxide 24 Anion Gap 7.0 BUN 59 H Creatinine 1.81 H Est Cr Clr Drug Dosing 28.5 Est GFR ( Amer) 32.5 Est GFR (Non-Af Amer) 28.0 BUN/Creatinine Ratio 32.7 H Glucose 177 H POC Glucose Calcium 9.3 Magnesium 2.3 Iron 36 TIBC 219 L Transferrin 181 L Ferritin 1027.9 H Total Bilirubin AST ALT Alkaline Phosphatase Total Creatine Kinase Troponin I 0.168 H* NT-Pro-B Natriuret Pep 04988 H Total Protein Albumin Globulin Albumin/Globulin Ratio Lipase Vitamin B12 Folate Beta-Hydroxybutyric Acd Procalcitonin TSH Blood Type A Positive Antibody Screen NEGATIVE 03/05/19 09:06 WBC RBC Hgb Hct MCV MCH MCHC RDW Std Deviation RDW Coeff of Nevaeh Plt Count MPV Immature Gran % (Auto) Neut % (Auto) Lymph % (Auto) Cameron % (Auto) Eos % (Auto) Baso % (Auto) Immature Gran # (Auto) Neut # (Auto) Lymph # (Auto) Cameron # (Auto) Eos # (Auto) Baso # (Auto) D-Dimer Sodium Potassium Chloride Carbon Dioxide Anion Gap BUN Creatinine Est Cr Clr Drug Dosing Est GFR ( Amer) Est GFR (Non-Af Amer) BUN/Creatinine Ratio Glucose POC Glucose Calcium Magnesium Iron TIBC Transferrin Ferritin Total Bilirubin AST ALT Alkaline Phosphatase Total Creatine Kinase Troponin I NT-Pro-B Natriuret Pep Total Protein Albumin Globulin Albumin/Globulin Ratio Lipase Vitamin B12 726 Folate 18.56 Beta-Hydroxybutyric Acd Procalcitonin TSH Blood Type Antibody Screen Medications Administered Current Inpatient Medications Acetaminophen (Tylenol) 650 mg PO Q4H PRN PRN Reason: Pain or Fever Stop: 04/03/19 15:30 Amlodipine Besylate (Norvasc) 5 mg PO [facility] Stop: 04/04/19 08:59 Last Admin: 03/05/19 09:10 Dose: 5 mg Documented by: [facility]ir[facility] ([facility]rin [facility]ab) [facility] [place]: 04/04/19 08:59 Last Admin: 03/05/19 09:11 Dose: 81 mg Documented by: Dextrose (Dextrose 50%) 25 - 50 ml IV UD PRN; Protocol PRN Reason: Hypoglycemia Protocol Stop: 04/03/19 15:30 Famotidine (Pepcid) [facility] [place]: 04/04/19 08:59 Last Admin: 03/05/19 09:10 Dose: 20 mg Documented by: Ferrous Sulfate (Feosol) 325 mg PO QAM [facility] Stop: 04/04/19 08:59 Last Admin: 03/05/19 09:11 Dose: 325 mg Documented by: Gabapentin (Neurontin) 100 mg PO QAM [facility] Stop: 04/04/19 08:59 Last Admin: 03/05/19 09:11 Dose: 100 mg Documented by: Glucagon (Glucagen) 1 mg SQ UD PRN; Protocol PRN Reason: Hypoglycemia Protocol Stop: 04/03/19 15:30 Glucose (Dex4 Glucose) 4 - 8 tabs PO UD PRN; Protocol PRN Reason: Hypoglycemia Protocol Stop: 04/03/19 15:30 Glucose (Glucose 40%) 15 - 30 gm PO UD PRN; Protocol PRN Reason: Hypoglycemia Protocol Stop: 04/03/19 15:30 Insulin Aspart (Novolog Flexpen) 0 units SC ACHS [facility] Stop: 04/03/19 16:29 Last Admin: 03/05/19 09:11 Dose: Not Given Documented by: Insulin Human NPH (Novolin N Nph) 20 units SC DAILY@0800 TED; Protocol Stop: 04/04/19 07:59 Insulin Human NPH (Novolin N Nph) 10 units SC DAILY@1700 TED; Protocol Stop: 04/04/19 16:59 Lovastatin (Mevacor) 40 mg PO HS [facility] Stop: 04/03/19 20:59 Last Admin: 03/04/19 19:58 Dose: 40 mg Documented by: Metoprolol Succinate (Toprol Xl) 75 mg PO BID [facility] Stop: 04/03/19 20:59 Last Admin: 03/05/19 09:11 Dose: 75 mg Documented by: Miscellaneous (Carbohydrates For Hypoglycemia) 15 - 30 gm PO UD PRN PRN Reason: Hypoglycemia Protocol Stop: 04/03/19 15:30 Last Admin: 03/05/19 00:07 Dose: 15 gm Documented by: Miscellaneous Information (Consult Glycemic Management Pharmacy) 1 ea N/A UD PRN; Protocol PRN Reason: Consult Stop: 04/03/19 15:47 Nitroglycerin (Nitrostat) 0.4 mg SL UD PRN PRN Reason: Chest Pain Stop: 04/03/19 15:30 Ondansetron HCl (Zofran) 4 mg IV Q6H PRN PRN Reason: Nausea Stop: 04/03/19 15:30 Paroxetine HCl (Paxil) 40 mg PO QAM [facility] Stop: 04/04/19 08:59 Last Admin: 03/05/19 09:10 Dose: 40 mg Documented by: Polyethylene Glycol (Miralax Powder Packet) 17 gm PO DAILY PRN PRN Reason: Constipation Stop: 04/03/19 15:30
[2019-03-05] MEDS: INSULIN HUMAN NPH SC SCH (10:32)
[2019-03-05] MEDS ORDERED: FUROSEMIDE 20 MG in SYRINGE 0 ML IV ONE (11:15)
--- NOTE | 2019-03-05 14:02 | Pharmacy Report ---
Pharmacy Glycemic Short Note 2 - Date of Service March 05, 2019 - Glycemic Short BSG Results (Last 24 hours): 03/04/19 03/04/19 03/04/19 16:59 17:07 20:10 Glucose 377 H* POC Glucose 401 H* 247 H 03/05/19 03/05/19 03/05/19 00:01 00:05 00:22 Glucose POC Glucose 57 L* 55 L* 75 03/05/19 03/05/19 03/05/19 03:56 07:14 09:06 Glucose 177 H POC Glucose 174 H 179 H 03/05/19 11:22 Glucose POC Glucose 220 H OUTPATIENT ANTIDIABETIC REGIMEN: * Novolin 70/30 30 units SQ qAM, 15 units SQ qPM * HbA1c: 7.6% (02/04/19) ASSESSMENT: * Ms Ribera is a 68yo diabetic admitted with ARF. * Patient was severely hyperglycemic on admission (BSGs 494, 401). Patient was provided with an IV insulin bolus in the ED and an increased dose of NPH with dinner. * At midnight BSG check, patient was hypoglycemic (BSG 55). * BID NPH started with breakfast this morning. Patient was refusing to eat until discharged home, so NPH was dosed conservatively. * Will continue to follow and adjust regimen as needed. PLAN FOR INPATIENT GLYCEMIC CONTROL: * Basal insulin * NPH 20 units SQ qAM, 10 units SQ qPM * Bolus insulin * NovoLog per scale ACHS or Q6hrs while NPO * Goal Range: Low 110 mg/dL - High 150 mg/dL * Correction Factor: 20 mg/dL/unit * Nutritional / Prandial insulin per carb ratio of 1 unit per 7 grams CHO consumed PLAN FOR DISCHARGE: * HbA1c (7.6%) indicates acceptable glycemic control as an outpatient, for a 68yo patient with multiple comorbidities. * Expect that patient may resume home regimen on discharge, as long as she does not report having episodes of hypoglycemia.
--- NOTE | 2019-03-05 14:23 | Hospitalist Progress Note ---
Date of Service March 05, 2019 Assessment & Plan (1) SOB (shortness of breath): This is a 68-year-old female who has significant past medical history of ischemic cardiomyopathy with systolic CHF EF 20 to 25%, presence of AICD, IDDM, CKD stage IV, HTN, mild , HLD, anemia of chronic disease, MDD, underlying dementia who presents to [facility] ED after being hypoxic at hospital follow-up PCP visit. Presented to ER with shortness of breath and low saturation Chest x-ray reported as congestive failure/fluid overload with small bilateral pleural effusion VQ scan was low probably for pulmonary embolism Did not receive any intravenous Lasix on admission Will give a small dose of intravenous Lasix today and monitor kidney function (2) Elevated troponin I level: Initial troponin was 0.150 and serial troponins were unremarkable for ACS Echocardiogram of the heart is pending (3) Hyperkalemia: Her potassium was noted to be 5.8 on admission and is completed complicated by impaired renal function Received 10 units IV regular insulin in ED Administer 1 g calcium gluconate Hold lisinopril Potassium is normalized and renal function has been improving with creatinine 1.8 on as of 03/05 (4) Acute worsening of stage 4 chronic kidney disease: Baseline creatinine 1.8 BUN/creatinine 71 and 2.17 today with ratio 32.6 Received fluid challenge in ED, will repeat BMP at 5 PM to observe for improvement or worsening of renal function Received intravenous fluid of 500 mL in the emergency room Was given 20 of Lasix intravenously this morning consult nephrologY-input awaited (5) DM II (diabetes mellitus, type II), controlled: A1c 7.6 on 02/04 On Novolin 70/30 as outpatient Patient significantly hyperglycemic in ED 494, s/p IV regular insulin 10 units Consult glycemic pharmacist for assistance -appreciate input Consult special educator (6) Chronic systolic heart failure: s/p recent hospitalization for acute on chronic CHF exacerbation Most recent echo 02/04 revealed slightly worsened EF 20 to 25%, global hypokinesis, mildly dilated LA and LV, mild left On exam she does not appear volume overloaded Continue metoprolol AICD in place Cardiology consulted (7) Ischemic cardiomyopathy: as above no active chest pain ECG changes notable for ST depressions inferior and laterally troponin elevated 0.150, appears chronically elevated trend troponin q6h x 2 (8) AICD (automatic cardioverter/defibrillator) present: Obtain interrogation (9) GERD (gastroesophageal reflux disease): Continue famotidine (10) Anemia: H&H 8.6 and 26.6 H&H 10.6 and 31.3 at most recent discharge No signs or symptoms of active bleeding FOBT all stool Repeat H&H at 5 PM Hemoglobin remains stable at more than 8 (11) Hypertension: bp stable continue metoprolol and amlodipine hold lisinopril and lasix monitor (12) Thrombocytopenia: Plt 116, previous had been 137 (13) DVT prophylaxis: IV heparin low dose until PE/NSTEMI ruled out SCD/TEDS (14) Anxiety and depression: She was noted to be very anxious with depressed mood Seems to have some cognitive impairment We will get a psychiatric evaluation for further management of this problem Subjective 03/05 The patient was seen and examined in telemetry unit She was admitted with shortness of breath and hypoxia and was noted to have some renal impairment as well She has been feeling a little bit better since admission Very anxious and may have component of depression//cognitive impairment She denies any chest pain, palpitation, shortness of breath at rest, no abdominal pain, nausea and/or vomiting Review of Systems Review of Systems: All systems reviewed and are unremarkable except as noted below Constitutional: + fatigue, + malaise and + weakness Physical Exam Physical Exam: Lying in bed very depressed Constitutional: well developed, well nourished, + acute distress (Minimal distress at rest), + ill appearing and + obese Eyes: PERRL, conjunctivae normal, anicteric sclerae ENMT: external ear and nose normal, oropharynx normal Neck: trachea midline, no thyromegaly Respiratory: normal respiratory effort; no respiratory distress Auscultation: + diminished lung sounds and + crackles (Minimal crackles at the bases) Cardiovascular: Rate/Rhythm: regular rate and regular rhythm Heart Sounds: no murmur Extremities: + edema Gastrointestinal (Abdomen): Inspection/Auscultation: abdomen normal to inspection and normal bowel sounds; abdomen not distended Musculoskeletal: No acute arthritis involving any joints Psychiatric: Orientation: alert Affect: + depressed affect and + anxious affect Insight: + limited insight Judgement: + limited judgement Results & Data Vital Signs (Past 12 Hours) Vital Signs Temp Pulse Resp BP Pulse Ox 03/05/19 11:04 36.4 C L 86 18 128/73 91 03/05/19 07:50 36.6 C 89 20 118/70 93 03/05/19 04:48 37.6 C H 88 20 120/73 92 Laboratory Results Short CBC 03/04/19 03/04/19 03/05/19 Range/Units 17:07 22:58 09:06 WBC 5.52 4.27 L (4.8-10.8) K/uL Hgb 8.4 L 8.5 L 8.6 L (12.0-16.0) g/dL Hct 24.8 L 25.4 L 25.3 L (37-47) % Plt Count 109 L 108 L (130-400) K/uL BMP 03/04/19 03/05/19 17:07 09:06 Sodium 132 L 138 Potassium 4.8 D 4.9 Chloride 102 107 Carbon Dioxide 21 24 BUN 65 H 59 H Creatinine 2.00 H 1.81 H Glucose 377 H* 177 H Calcium 9.4 9.3 Cardiac Enzymes 03/04/19 03/04/19 03/04/19 Range/Units 12:00 17:07 22:58 Total Creatine Kinase 47 (26-192) U/L Troponin I 0.149 H* 0.204 H* (0-0.045) ng/ml 03/05/19 Range/Units 09:06 Total Creatine Kinase (26-192) U/L Troponin I 0.168 H* (0-0.045) ng/ml Medications Administered Current Inpatient Medications Acetaminophen (Tylenol) 650 mg PO Q4H PRN PRN Reason: Pain or Fever Stop: 04/03/19 15:30 Amlodipine Besylate (Norvasc) [address] [facility] Stop: 04/04/19 08:59 Last Admin: 03/05/19 09:10 Dose: 5 mg Documented by: Aspirin (Ecotrin Ectab) [address] [facility] Stop: 04/04/19 08:59 Last Admin: 03/05/19 09:11 Dose: 81 mg Documented by: Dextrose (Dextrose 50%) 25 - 50 ml IV UD PRN; Protocol PRN Reason: Hypoglycemia Protocol Stop: 04/03/19 15:30 Famotidine (Pepcid) [address] [facility] Stop: 04/04/19 08:59 Last Admin: 03/05/19 09:10 Dose: 20 mg Documented by: Ferrous Sulfate (Feosol) 325 mg PO QAM [facility] Stop: 04/04/19 08:59 Last Admin: 03/05/19 09:11 Dose: 325 mg Documented by: Gabapentin (Neurontin) 100 mg PO QAM [facility] Stop: 04/04/19 08:59 Last Admin: 03/05/19 09:11 Dose: 100 mg Documented by: Glucagon (Glucagen) 1 mg SQ UD PRN; Protocol PRN Reason: Hypoglycemia Protocol Stop: 04/03/19 15:30 Glucose (Dex4 Glucose) 4 - 8 tabs PO UD PRN; Protocol PRN Reason: Hypoglycemia Protocol Stop: 04/03/19 15:30 Glucose (Glucose 40%) 15 - 30 gm PO UD PRN; Protocol PRN Reason: Hypoglycemia Protocol Stop: 04/03/19 15:30 Insulin Aspart (Novolog Flexpen) 0 units SC ACHS [facility] Stop: 04/03/19 16:29 Last Admin: 03/05/19 13:13 Dose: 7 units Documented by: Insulin Human NPH (Novolin N Nph) 20 units SC DAILY@0800 T[facility]; Protocol Stop: 04/04/19 07:59 Last Admin: 03/05/19 10:32 Dose: 20 units Documented by: Insulin Human NPH (Novolin N Nph) 10 units SC DAILY@1700 TED; Protocol Stop: 04/04/19 16:59 Lovastatin (Mevacor) 40 mg PO HS [facility] Stop: 04/03/19 20:59 Last Admin: 03/04/19 19:58 Dose: 40 mg Documented by: Metoprolol Succinate (Toprol Xl) 75 mg PO BID [facility] Stop: 04/03/19 20:59 Last Admin: 03/05/19 09:11 Dose: 75 mg Documented by: Miscellaneous (Carbohydrates For Hypoglycemia) 15 - 30 gm PO UD PRN PRN Reason: Hypoglycemia Protocol Stop: 04/03/19 15:30 Last Admin: 03/05/19 00:07 Dose: 15 gm Documented by: Miscellaneous Information (Consult Glycemic Management Pharmacy) 1 ea N/A UD PRN; Protocol PRN Reason: Consult Stop: 04/03/19 15:47 Nitroglycerin (Nitrostat) 0.4 mg SL UD PRN PRN Reason: Chest Pain Stop: 12/27/19 15:30 Ondansetron HCl (Zofran) 4 mg IV Q6H PRN PRN Reason: Nausea Stop: 04/03/19 15:30 Paroxetine HCl (Paxil) [address] [facility] Stop: 04/04/19 08:59 Last Admin: 03/05/19 09:10 Dose: 40 mg Documented by: Polyethylene Glycol (Miralax Powder Packet) 17 gm PO DAILY PRN PRN Reason: Constipation Stop: 04/03/19 15:30
--- NOTE | 2019-03-05 16:12 | Psychiatric Consultation ---
Date of Consultation March 05, 2019 Impression / Recommendations Impression 68-year-old female reports onset of depression within the past few years associated with the of her second . Reviewing her recent record it appears there has been some concern for some memory loss however I do not see a formalized history of dementia diagnosis. No recent neuroimaging on record which could be considered however I do not feel it is appropriate to attempt to newly diagnose dementia in the setting of encephalopathy associated with her multiple active medical problems including hypoxia and acute on chronic renal failure. I am not fond of Paxil as an antidepressant in this type of clinical setting due to potential negative cognitive impact as well as higher risk for other anticholinergic SE. She denies any prior treatment history on alternative antidepressant pharmacotherapy in the past and is readily willing to trial an alternative. Total duration of treatment on Paxil is not clear and there is risk for discontinuation symptoms if abruptly discontinued. She verbalized understanding of this and was accepting of a cross taper to sertraline which has lower risk for anticholinergic side effects and is better studied in cardiac patients. Presently I do not appreciate any acute safety concerns in the form of suicidal or homicidal ideation or acute behavioral disturbance. No indication for psychiatric hospitalization at this time. She might benefit from outpatient psychiatric follow-up as she demonstrates an element of maladjustment to increasing dependency. She was responsive to brief supportive counseling today. Diagnosis: Delirium due to multiple etiologies; rule out underlying neurocognitive disorder; MDD, recurrent, mild, with anxious distress; rule out adjustment disorder (1) Anxiety and depression: 03/05/2019 -As above, no acute safety concerns appreciated today. No indication of need for acute psychiatric hospitalization -We will attempt to expand database with surrogate history from patient's son with whom she lives. -Patient amenable to antidepressant cross-taper to reduce risk for deliriogenic impact of fairly high dose Paxil by reducing Paxil 10 mg weekly until discontinued. She will start Zoloft 25 mg daily and increase by 25 mg every week to an initial target dose of 100 mg as she tapers off of the Paxil. -Watch for signs of serotonin toxicity during antidepressant cross-taper. -Common risks and benefits of SSRIs were reviewed with patient Psych History Chief Complaint "Everybody thinks I'm nuts". History of Present Illness Per admission HPI: This is a 68-year-old female who has significant past medical history of ischemic cardiomyopathy with systolic CHF EF 20 to 25%, presence of AICD, IDDM, CKD stage IV, HTN, mild , HLD, anemia of chronic disease, MDD, underlying dementia who presents to [facility] ED after being hypoxic at hospital follow-up PCP visit. Of significance patient hospitalized 02/04 to 02/11 at [facility] ED after initially being seen and treated medically for ER due to shortness of breath. She was found to have NSTEMI secondary to demand ischemia and acute on chronic systolic CHF exacerbation, questionable right pneumonia treated with IV antibiotics. She was treated with IV diuresis, creatinine peaked at 2.4 and transition to oral diuretics. Her oral metoprolol was increased to 75 mg twice daily. She was discharged to [facility] for subacute rehab discharged home on 02/27. She presented to PCP office today for hospital follow-up. Complained PCP of chest tightness and shortness of breath and was noted to be hypoxic. She was referred back to ED for further evaluation. Son and family members are at bedside. Son provides most of history as patient does have history of dementia and history is otherwise unreliable. States brought mother to his house on Saturday and she is currently living with him in an apartment attached to her garage. Noted she had been doing fine up until today when she became short of breath with minimal exertion. She was short of breath just walking into PCP office. Noted overall poor appetite for the past 3 to 4 days and decreased intake. "If you put food in front of her she will eat but hasn't been eating that well." Not following fluid restriction, but son doesn't feel she has been drinking much maybe 2-3 glasses daily. Does not weigh herself daily as she doesn't have scale. Son feels she may be dehydrated. Feels her mental status is at baseline. Has been taking lasix and insulin daily; however, other medications just picked up from pharmacy yesterday. Pt states 7 regular BM yesterday. She denies any recent f/c/s, dizziness, lightheaded, chest pain, palpitations, hemoptysis, abdominal pain or change in urination. Denies melena, hematochezia or hematuria. In ED patient was noted to be hypoxic 88% on room air and placed on supplemental O2. Initial chest x-ray concerning for volume overload with small bilateral pleural effusions and CHF. Her troponin is chronically elevated and today was 0.150, d-dimer elevated 1880, ECG revealed sinus tachycardia with inferior lateral T wave inversion - new compared to prior ECG. Electrolyte abnormalities notable for significant hyperglycemia of 494, correct ed sodium 135, K5.8, BUN 71, creatinine 2.17. She did have a drop in hemoglobin to 8.6 and 26.6 from 10.6/31.3 at discharge. She received 500ml IVF and 10 units of regular insulin. Psychiatric consultation requested today to evaluate appropriateness and effectiveness of antidepressant. Per Dr. Wagner's note from today, current medical issues include initial troponin elevation but stable, echo pending, hyperkalemia, acute on chronic kidney disease, type 2 diabetes, chronic heart failure and cardiology has been consulted, GERD, anemia, hypertension with stable BP, thrombocytopenia. She is noted to appear anxious and depressed precipitating psychiatric consultation. On psychiatric interview, patient tearful with liaison nurse and reports depression started after of her second after 39 years of marriage in 2014. She has been taking Paxil since that time. She denies that she has been suicidal but has had thoughts about being ready for . She is tired of feeling sick. She describes diminished appetite but tries to eat because she knows she has to. Sleep fair. She denied increased anxiety. Denies hallucinations. She does acknowledge sometimes talking to her however she clarifies that she is speaking to the memory of him and does not perceive him to be present. She complains of feeling overwhelmed by loss of control which is precipitating what might be considered very mild paranoia where she perceives the people think that she is doing things wrong or that she is incapable. She acknowledges some confusion and memory loss. Presently I am uncertain of her functional baseline. She appears to be living in a converted garage on her son's property. She expresses desire to get off of the Paxil perceiving that it makes her feel foggy and also reminds her of the loss of her . She scores a 3 on mini cog assessment today with intact clock, good visual-spatial performance, but missing 2 points on word recall. Past Psychiatric History Previous Psych History: denies History of Previous Suicide Attempt: No Past Medication Trials: paxil neurontin Allergies Allergy/AdvReac Type Severity Reaction Status Date / Time No Known Allergies Allergy Unverified 03/04/19 13:16 Home Medications Home Medications Medication Instructions Recorded Confirmed Type Novolin 70/30 U-100 Insulin See Rx Instructions .ROUTE .COMPLEX 02/04/19 03/04/19 History amlodipine 5 mg PO QAM 02/04/19 03/04/19 History benzonatate 100 mg PO TID PRN 02/04/19 03/04/19 History ergocalciferol (vitamin D2) 50,000 unit PO WK 02/04/19 03/04/19 History famotidine 20 mg PO QAM 02/04/19 03/04/19 History ferrous sulfate 325 mg PO QAM 02/04/19 03/04/19 History furosemide 20 mg PO QAM 02/04/19 03/04/19 History gabapentin 100 mg PO QAM 02/04/19 03/04/19 History lisinopril 5 mg PO QAM 02/04/19 03/04/19 History lovastatin 40 mg PO HS 02/04/19 03/04/19 History paroxetine HCl 40 mg PO QAM 02/04/19 03/04/19 History aspirin [Ecotrin Low Strength] 81 mg PO QAM #30 tab 02/11/19 03/04/19 Rx nitroglycerin [Nitrostat] 0.4 mg SUBLINGUAL UD PRN #5 tab 02/11/19 03/04/19 Rx acetaminophen 650 mg PO Q4H PRN 03/04/19 03/04/19 History bisacodyl [Dulcolax (bisacodyl)] 10 mg [place] DAILY PRN 03/04/19 03/04/19 History magnesium hydroxide [Milk of 30 ml PO DAILY PRN 03/04/19 03/04/19 History Magnesia] metoprolol succinate 75 mg PO BID 03/04/19 03/04/19 History miconazole nitrate 1 applic TOPICAL BID 03/04/19 03/04/19 History sodium phosphates [Fleet Enema] 118 ml [place] DAILY PRN 03/04/19 03/04/19 History Personal History Living Arrangements: Apartment (on son's property) Highest Grade Completed: High School Graduate Employment Status: Retired Marital Status: Beliefs That Will Affect Care: None Patient History Medical History Anemia (Chronic) Anxiety and depression (Chronic) Aortic stenosis (Chronic) Chronic renal disease, stage IV (Chronic) Chronic systolic heart failure (Chronic) DM II (diabetes mellitus, type II), controlled (Chronic) GERD (gastroesophageal reflux disease) (Chronic) Hyperkalemia (Chronic) Hyperlipidemia LDL goal <70 (Chronic) Moderate mitral regurgitation (Chronic) NSTEMI (non-ST elevated myocardial infarction) (Resolved) Surgical History AICD (automatic cardioverter/defibrillator) present (Chronic) History of appendectomy History of tubal ligation Status post cholecystectomy (Inactive) Family History Other Diabetes Social History Preferred Language: Mohawk Communication Ability: Effective Scrap Preparation Supervisor Required: No Beliefs That Will Affect Care: None marital status: / Current Living Situation: Family Current Living Situation Comment: Lives with son in apartment above their garage Other Information That Helps Us Care for You: Yes Feels Safe at Home: Yes Safety Concerns: Feels Safe At This Time Smoking Status: Never smoker Hx Alcohol Use: No Hx Substance Use: No Physical Exam Psychiatric: Orientation: alert and cooperative Apperance: appeared stated age Eye Contact: good eye contact Motor Behavior: no abnormal motor movements Speech: normal rate/rhythm/volume of speech Affect: + depressed affect, + anxious affect and mood congruent with affect; no labile affect Mood: + depressed mood and + anxious mood Thought Process: + circumstantial thought process Thought Content: reality based without delusions Suicidal Thoughts: denies suicidal thoughts, denies suicidal plan and denies suicidal intent Homicidal Thoughts: denies homicidal thoughts Hallucinations: no auditory hallucinations, no visual hallucinations and no tactile hallucinations Cognition: + recent memory not intact Insight: + fair insight Judgement: + fair judgement Vital Signs (Past 24 Hours): Last Vital Signs Temp 36.6 C 03/05/19 15:50 Pulse 86 03/05/19 15:50 Resp 19 03/05/19 15:50 BP 128/73 03/05/19 11:04 Pulse Ox 95 03/05/19 15:50 Review of Systems Constitutional: as per Subjective / HPI Neurologic: + confusion and + memory loss Psychiatric: + depression and + anxiety; no suicidal ideation and no hallucinations Results & Data Medications Administered Amlodipine Besylate (Norvasc) 5 mg PO [facility] Stop: 04/04/19 08:59 Last Admin: 03/05/19 09:10 Dose: 5 mg Documented by: [id number] Aspirin (Ecotrin Ectab) 81 mg PO [facility] Stop: 04/04/19 08:59 Last Admin: 03/05/19 09:11 Dose: 81 mg Documented by: [id number] Famotidine (Pepcid) 20 mg PO [facility] Stop: 04/04/19 08:59 Last Admin: 03/05/19 09:10 Dose: 20 mg Documented by: [id number] Ferrous Sulfate (Feosol) 325 mg PO [facility] Stop: 04/04/19 08:59 Last Admin: 03/05/19 09:11 Dose: 325 mg Documented by: [id number] Gabapentin (Neurontin) 100 mg PO [facility] Stop: 04/04/19 08:59 Last Admin: 03/05/19 09:11 Dose: 100 mg Documented by: [id number] Insulin Aspart (Novolog Flexpen) 0 units SC [facility] Stop: 04/03/19 16:29 Last Admin: 03/05/19 13:13 Dose: 7 units Documented by: [id number] Cosigned by: [id number] Admin: 03/05/19 09:11 Dose: Not Given Documented by: [id number] Admin: 03/04/19 20:24 Dose: 5 units Documented by: [id number] Cosigned by: [id number] Admin: 03/04/19 17:06 Dose: 13 units Documented by: [id number] Cosigned by: [id number] Insulin Human NPH (Novolin N Nph) 20 units [place] DAILY@0800 [facility]; Protocol Stop: 04/04/19 07:59 Last Admin: 03/05/19 10:32 Dose: 20 units Documented by: [id number] Cosigned by: [id number] Lovastatin (Mevacor) 40 mg PO HS [facility] Stop: 04/03/19 20:59 Last Admin: 03/04/19 19:58 Dose: 40 mg Documented by: [id number] Metoprolol Succinate (Toprol Xl) 75 mg PO BID [facility] Stop: 04/03/19 20:59 Last Admin: 03/05/19 09:11 Dose: 75 mg Documented by: [id number] Admin: 03/04/19 19:58 Dose: 75 mg Documented by: [id number] Miscellaneous (Carbohydrates For Hypoglycemia) 15 - 30 gm PO UD PRN PRN Reason: Hypoglycemia Protocol Stop: 04/03/19 15:30 Last Admin: 03/05/19 00:07 Dose: 15 gm Documented by: [id number] Paroxetine HCl (Paxil) 40 mg PO QAM [facility] Stop: 04/04/19 08:59 Last Admin: 03/05/19 09:10 Dose: 40 mg Documented by: [id number] Coding Level of Care Code 78797 [facility] Int[facility] Hosp Care Lvl 2 Diagnoses Anxiety and depression F41.9; F32.9
[2019-03-05] MEDS ORDERED: INSULIN HUMAN NPH SC SCH (17:00)
[2019-03-05] MEDS: LOVASTATIN 20 MG TAB PO SCH (20:49)
--- NOTE | 2019-03-05 20:59 | Consultation Report ---
DATE OF CONSULTATION: 03/05/2019 NEPHROLOGY CONSULTATION NOTE REASON FOR CONSULT: Acute renal failure on background chronic kidney disease 3 with congestive heart failure. HISTORY OF PRESENT ILLNESS: The patient is a 68-year-old female with chronic kidney disease with a baseline creatinine just under 2 as well as ischemic cardiomyopathy with an ejection fraction of 33%, presented to the hospital yesterday with hypoxia and shortness of breath. Chest x-ray was noted to have congestive heart failure and small bilateral pleural effusion. She got 1 dose of IV Lasix 20 mg, lisinopril was held. Renal function has improved. Creatinine was 2.17 at the time of admission and most recently it is 1.81, potassium was high at that admission, but is now normal. She appears very comfortable breathing [place]; however, still requiring oxygen. PAST MEDICAL HISTORY: Ischemic cardiomyopathy with an EF of 33%, chronic kidney disease, baseline creatinine around 1.8, type 2 diabetes of longstanding duration, dementia, anemia, anxiety and depression, aortic stenosis, GERD, hyperkalemia, hyperlipidemia. ALLERGIES: Reviewed. HOME MEDICATIONS: List was reviewed and includes lisinopril and Lasix 20 mg daily as well as multiple other medication. PAST SURGICAL HISTORY: AICD, history of discectomy, history of tubal ligation, status post cholecystectomy. REVIEW OF SYSTEMS: Hard to obtain as patient is not really clear with the details. She really did not remember why she was in the hospital yesterday. PHYSICAL EXAMINATION: GENERAL: The patient is awake, alert, oriented. VITAL SIGNS: Blood pressure 129/74, pulse rate 86 per minute, temperature 36.6, 95% on 1 liter nasal cannula. HEENT: Mucous membrane is moist. Normocephalic, atraumatic. NECK: Supple. No jugular venous distention. CHEST: Bilateral basal crackles. CARDIOVASCULAR: Regular rate and rhythm, no murmur, rubs or gallop. ABDOMEN: Soft, nontender. EXTREMITIES: Shows no edema. LABORATORY TESTS: Reviewed in detail. ASSESSMENT AND PLAN: A 68-year-old female with baseline chronic kidney disease with a baseline creatinine just under 2 as well as ischemic cardiomyopathy with an EF of 33%, presented to the hospital with shortness of breath and hypoxia; however, without significant aggressive intervention her breathing has come to normal. She is requiring 1 liter of oxygen. Renal function was slightly worse at the time of admission, but it is already getting better and is now back to baseline. Acute renal failure likely hemodynamic in the setting of hypoxia. With the correction of hypoxia, renal function has already improved and is back to baseline. RECOMMENDATIONS: 1. Continue to hold lisinopril for at least 1 more day. 2. At this point, she appears very, very comfortable, although she has radiographic evidence of pulmonary congestion. It does not appear to be so on clinical exam. No need of Lasix now as she already received one dose earlier today. Decision about Lasix can be made tomorrow based on her clinical status; however, there is no absolute contraindication to give Lasix if needed, which she probably needs, no further workup is needed for her renal failure as her creatinine is back to baseline. MTDD
[2019-03-06 06:38] LABS: Eosinophils # (auto) 0.06 K/uL (0-0.5); Eosinophils % (auto) 1.5 %; Hematocrit (blood only) 25.1 % (37-47); Hemoglobin 8.3 g/dL (12.0-16.0); Immature Granulocytes # (auto) 0.02 K/uL (0.00-0.02); Immature Granulocytes % (auto) 0.5 %; Lymphocytes # (auto) 1.57 K/uL (1.2-3.4); Lymphocytes % (auto) 39.3 %; Mean Corpuscular Hemoglobin 32.7 pg (25-34); Mean Corpuscular Hgb Conc 33.1 g/dL (32-36); Mean Corpuscular Volume 98.8 fL (80-100); Mean Platelet Volume 10.2 fL (7.4-10.4); Monocytes # (auto) 0.53 K/uL (0.11-0.59); Monocytes % (auto) 13.3 %; Neutrophils # (auto) 1.82 K/uL (1.4-6.5); Neutrophils % (auto) 45.4 %; Platelet Count 138 K/uL (130-400); RDW Coefficient of Variation 13.9 % (11.5-14.5); RDW Standard Deviation 49.6 fL (36.4-46.3); Red Blood Count 2.54 M/uL (4.2-5.4)
[2019-03-06 07:08] LABS: BUN Creatinine Ratio 30.5 (10-20); Calcium 9.4 mg/dl (8.5-10.1); Creatinine Clr Calc Pharmacy 28.2 ml/min; Est GFR (African American) 32.1; Est GFR (Non-African American) 27.7; Magnesium 2.2 mg/dl (1.8-2.4)
[2019-03-06] MEDS: INSULIN ASPART 100 UNITS/ML 3 ML PEN SC SCH ×4 (08:24→21:30)
[2019-03-06] MEDS: PARoxetine HCl 20 MG TAB PO SCH (08:25)
[2019-03-06] MEDS: INSULIN HUMAN NPH SC SCH ×2 (08:25→16:52)
[2019-03-06] MEDS: METOPROLOL SUCC 25MG EXT REL TAB PO SCH ×2 (08:26→21:21)
[2019-03-06] MEDS: ASPIRIN 81 MG ECTAB PO SCH (09:23)
[2019-03-06] MEDS: FAMOTIDINE 20 MG TAB PO SCH (09:23)
[2019-03-06] MEDS: FERROUS SULFATE 325 MG TAB PO SCH (09:23)
[2019-03-06] MEDS: AMLODIPINE BESYLATE 5 MG TAB PO SCH (09:23)
[2019-03-06] MEDS: GABAPENTIN 100 MG CAP PO SCH (09:23)
--- NOTE | 2019-03-06 10:21 | Nephrology Progress Note ---
Date of Service March 06, 2019 Assessment & Plan (1) Acute worsening of stage 4 chronic kidney disease: Patient with CKD stage IV baseline creatinine of under 2. She was admitted with the shortness of breath found to have acute kidney injury with creatinine of 2.1. Creatinine now back to baseline at 1.8. -Continue diuresis at current dose of 20 mg IV daily. -Monitor input output and daily BMP -Avoid nephrotoxins unless lifesaving. -She will need renal follow-up as an outpatient on discharge (2) Hypoxia: Due to CHF exacerbation. Improving with oxygen and diuresis. Continue Lasix IV 20 mg daily. She will likely be discharged on 40 mg p.o. -She should be on 2 g sodium diet and fluid restriction of about 40 ounces daily. (3) Hyperkalemia: Patient admitted with potassium of 5.8. Likely due to advanced CKD. -Continue Lasix. -She should be on a potassium restricted diet. (4) Anemia: Patient with hemoglobin of 8.3. Recommend checking iron levels. If patient is iron replete, will give Procrit. Subjective Patient feels better this morning, no shortness of breath or chest pain. She is still on oxygen 1 L by nasal cannula. She got 1 dose of IV Lasix 20 mg and was net -900 mL. Seen with 2 daughters at the bedside.. Review of Systems Review of Systems: All systems reviewed & are unremarkable except as noted in HPI & below Physical Exam Physical Exam: General exam: Appears comfortable, no acute distress HEENT: Pupils are equal and reactive to light Neck: No JVD, neck is supple trachea is midline Respiratory system: Clear breath sounds bilaterally. Gastrointestinal: Abdomen is soft, non distended, non tender, bowel sounds are present CVS: Regular rate and rhythm. No murmurs, rubs or gallops Musculoskeletal: No joint or muscle tenderness Extremities: Non tender, no edema, peripheral pulses are present Neuro: Oriented, no tremors, no focal neurological deficits Skin: No rashes Results & Data Vital Signs (Past 12 Hours) Vital Signs Temp Pulse Pulse Resp BP Pulse Ox 03/06/19 07:04 36.4 C L 83 18 137/75 97 03/06/19 03:32 36.4 C L 84 18 114/70 92 03/05/19 23:11 36.7 C 91 H 20 145/79 H 94 Laboratory Results Laboratory Results - last 24 hr 03/05/19 03/05/19 03/05/19 09:06 11:22 16:19 WBC RBC Hgb Hct MCV MCH MCHC RDW Std Deviation RDW Coeff of Nevaeh Plt Count MPV Immature Gran % (Auto) Neut % (Auto) Lymph % (Auto) [place] % (Auto) Eos % (Auto) Baso % (Auto) Immature Gran # (Auto) Neut # (Auto) Lymph # (Auto) [place] # (Auto) Eos # (Auto) Baso # (Auto) Sodium Potassium Chloride Carbon Dioxide Anion Gap BUN Creatinine Est Cr Clr Drug Dosing Est GFR ( Amer) Est GFR (Non-Af Amer) BUN/Creatinine Ratio Glucose POC Glucose 220 H 105 H Calcium Magnesium Blood Type A Positive Antibody Screen NEGATIVE 03/05/19 03/06/19 03/06/19 20:09 05:59 05:59 WBC 4.00 L RBC 2.54 L Hgb 8.3 L Hct 25.1 L MCV 98.8 MCH 32.7 MCHC 33.1 RDW Std Deviation 49.6 H RDW Coeff of Nevaeh 13.9 Plt Count 138 MPV 10.2 Immature Gran % (Auto) 0.5 Neut % (Auto) 45.4 Lymph % (Auto) 39.3 [place] % (Auto) 13.3 Eos % (Auto) 1.5 Baso % (Auto) 0.0 Immature Gran # (Auto) 0.02 Neut # (Auto) 1.82 Lymph # (Auto) 1.57 [place] # (Auto) 0.53 Eos # (Auto) 0.06 Baso # (Auto) 0.00 Sodium 138 Potassium 5.0 Chloride 107 Carbon Dioxide 25 Anion Gap 6.0 BUN 56 H Creatinine 1.83 H Est Cr Clr Drug Dosing 28.2 Est GFR ( Amer) 32.1 Est GFR (Non-Af Amer) 27.7 BUN/Creatinine Ratio 30.5 H Glucose 149 H POC Glucose 98 Calcium 9.4 Magnesium 2.2 Blood Type Antibody Screen 03/06/19 07:40 WBC RBC Hgb Hct MCV MCH MCHC RDW Std Deviation RDW Coeff of Nevaeh Plt Count MPV Immature Gran % (Auto) Neut % (Auto) Lymph % (Auto) [place] % (Auto) Eos % (Auto) Baso % (Auto) Immature Gran # (Auto) Neut # (Auto) Lymph # (Auto) [place] # (Auto) Eos # (Auto) Baso # (Auto) Sodium Potassium Chloride Carbon Dioxide Anion Gap BUN Creatinine Est Cr Clr Drug Dosing Est GFR ( Amer) Est GFR (Non-Af Amer) BUN/Creatinine Ratio Glucose POC Glucose 183 H Calcium Magnesium Blood Type Antibody Screen
--- NOTE | 2019-03-06 11:56 | Cardiology Progress Note ---
Date of Service March 06, 2019 Assessment & Plan (1) SOB (shortness of breath): (2) Hypoxia: (3) CHF (congestive heart failure): (4) AICD (automatic cardioverter/defibrillator) present: (5) Chronic systolic heart failure: (6) DM II (diabetes mellitus, type II), controlled: (7) Chronic renal disease, stage IV: The patient is currently clinically stable. Nephrology's note is appreciated. Psychiatry evaluation is pending. Subjective The patient is resting comfortably. I spoke to her son Yousuf at home by telephone today. I informed him that we were going to have the psychiatry department see her and evaluate her for dementia versus depression. From a cardiac standpoint she is currently stable. Review of Systems Review of Systems: All systems reviewed & are unremarkable except as noted in HPI & below Nothing additional to add. Physical Exam Physical Exam: Laboratory Results - last 24 hr 03/05/19 03/05/19 03/06/19 16:19 20:09 05:59 WBC 4.00 L RBC 2.54 L Hgb 8.3 L Hct 25.1 L MCV 98.8 MCH 32.7 MCHC 33.1 RDW Std Deviation 49.6 H RDW Coeff of Nevaeh 13.9 Plt Count 138 MPV 10.2 Immature Gran % (A uto) 0.5 Neut % (Auto) 45.4 Lymph % (Auto) 39.3 [place] % (Auto) 13.3 Eos % (Auto) 1.5 Baso % (Auto) 0.0 Immature Gran # (A uto) 0.02 Neut # (Auto) 1.82 Lymph # (Auto) 1.57 [place] # (Auto) 0.53 Eos # (Auto) 0.06 Baso # (Auto) 0.00 Sodium Potassium Chloride Carbon Dioxide Anion Gap BUN Creatinine Est Cr Clr Drug Do sing Est GFR ( A jose) Est GFR (Non-Af Am er) BUN/Creatinine Rat io Glucose POC Glucose 105 H 98 Calcium Magnesium 03/06/19 03/06/19 03/06/19 05:59 07:40 11:17 WBC RBC Hgb Hct MCV MCH MCHC RDW Std Deviation RDW Coeff of Nevaeh Plt Count MPV Immature Gran % (A uto) Neut % (Auto) Lymph % (Auto) [place] % (Auto) Eos % (Auto) Baso % (Auto) Immature Gran # (A uto) Neut # (Auto) Lymph # (Auto) [place] # (Auto) Eos # (Auto) Baso # (Auto) Sodium 138 Potassium 5.0 Chloride 107 Carbon Dioxide 25 Anion Gap 6.0 BUN 56 H Creatinine 1.83 H Est Cr Clr Drug Do sing 28.2 Est GFR ( A jose) 32.1 Est GFR (Non-Af Am er) 27.7 BUN/Creatinine Rat io 30.5 H Glucose 149 H POC Glucose 183 H 279 H Calcium 9.4 Magnesium 2.2 Results & Data Vital Signs (Past 12 Hours) Vital Signs Temp Pulse Pulse Resp BP Pulse Ox 03/06/19 11:13 37.0 C 94 H 18 123/65 94 03/06/19 07:04 36.4 C L 83 18 137/75 97 03/06/19 03:32 36.4 C L 84 18 114/70 92 Laboratory Results Laboratory Results - last 24 hr 03/05/19 03/05/19 03/06/19 16:19 20:09 05:59 WBC 4.00 L RBC 2.54 L Hgb 8.3 L Hct 25.1 L MCV 98.8 MCH 32.7 MCHC 33.1 RDW Std Deviation 49.6 H RDW Coeff of Nevaeh 13.9 Plt Count 138 MPV 10.2 Immature Gran % (Auto) 0.5 Neut % (Auto) 45.4 Lymph % (Auto) 39.3 [place] % (Auto) 13.3 Eos % (Auto) 1.5 Baso % (Auto) 0.0 Immature Gran # (Auto) 0.02 Neut # (Auto) 1.82 Lymph # (Auto) 1.57 [place] # (Auto) 0.53 Eos # (Auto) 0.06 Baso # (Auto) 0.00 Sodium Potassium Chloride Carbon Dioxide Anion Gap BUN Creatinine Est Cr Clr Drug Dosing Est GFR ( Amer) Est GFR (Non-Af Amer) BUN/Creatinine Ratio Glucose POC Glucose 105 H 98 Calcium Magnesium 03/06/19 03/06/19 03/06/19 05:59 07:40 11:17 WBC RBC Hgb Hct MCV MCH MCHC RDW Std Deviation RDW Coeff of Nevaeh Plt Count MPV Immature Gran % (Auto) Neut % (Auto) Lymph % (Auto) [place] % (Auto) Eos % (Auto) Baso % (Auto) Immature Gran # (Auto) Neut # (Auto) Lymph # (Auto) [place] # (Auto) Eos # (Auto) Baso # (Auto) Sodium 138 Potassium 5.0 Chloride 107 Carbon Dioxide 25 Anion Gap 6.0 BUN 56 H Creatinine 1.83 H Est Cr Clr Drug Dosing 28.2 Est GFR ( Amer) 32.1 Est GFR (Non-Af Amer) 27.7 BUN/Creatinine Ratio 30.5 H Glucose 149 H POC Glucose 183 H 279 H Calcium 9.4 Magnesium 2.2 Diagnostic Findings The echocardiogram reveals an estimated left ventricular ejection fraction of around 25%, moderate to severe mitral regurgitation and a previous anterior wall myocardial infarction. Medications Administered Current Inpatient Medications Acetaminophen (Tylenol) 650 mg PO Q4H PRN PRN Reason: Pain or Fever Stop: 04/03/19 15:30 Amlodipine Besylate (Norvasc) [address] [facility] Stop: 04/04/19 08:59 Last Admin: 03/06/19 09:23 Dose: 5 mg Documented by: Aspirin (Ecotrin Ectab) [address] [facility] Stop: 04/04/19 08:59 Last Admin: 03/06/19 09:23 Dose: 81 mg Documented by: Dextrose (Dextrose 50%) 25 - 50 ml IV UD PRN; Protocol PRN Reason: Hypoglycemia Protocol Stop: 04/03/19 15:30 Famotidine (Pepcid) [address] [facility] Stop: 04/04/19 08:59 Last Admin: 03/06/19 09:23 Dose: 20 mg Documented by: Ferrous Sulfate (Feosol) [address] [facility] Stop: 04/04/19 08:59 Last Admin: 03/06/19 09:23 Dose: 325 mg Documented by: Gabapentin (Neurontin) [address] [facility] Stop: 04/04/19 08:59 Last Admin: 03/06/19 09:23 Dose: 100 mg Documented by: Glucagon (Glucagen) 1 mg SQ UD PRN; Protocol PRN Reason: Hypoglycemia Protocol Stop: 04/03/19 15:30 Glucose (Dex4 Glucose) 4 - 8 tabs PO UD PRN; Protocol PRN Reason: Hypoglycemia Protocol Stop: 04/03/19 15:30 Glucose (Glucose 40%) 15 - 30 gm PO UD PRN; Protocol PRN Reason: Hypoglycemia Protocol Stop: 04/03/19 15:30 Insulin Aspart (Novolog Flexpen) 0 units SC ACHS [facility] Stop: 04/03/19 16:29 Last Admin: 03/06/19 08:24 Dose: 4 units Documented by: Insulin Human NPH (Novolin N Nph) 20 units SC DAILY@0800 TED; Protocol Stop: 04/04/19 07:59 Last Admin: 03/06/19 08:25 Dose: 20 units Documented by: Insulin Human NPH (Novolin N Nph) 10 units SC DAILY@1700 TED; Protocol Stop: 04/04/19 16:59 Last Admin: 03/05/19 16:58 Dose: 10 units Documented by: Lovastatin (Mevacor) 40 mg PO [facility] Stop: 04/03/19 20:59 Last Admin: 03/05/19 20:49 Dose: 40 mg Documented by: Metoprolol Succinate (Toprol Xl) 75 mg PO BID [facility] Stop: 04/03/19 20:59 Last Admin: 03/06/19 08:26 Dose: 75 mg Documented by: Miscellaneous (Carbohydrates For Hypoglycemia) 15 - 30 gm PO UD PRN PRN Reason: Hypoglycemia Protocol Stop: 04/03/19 15:30 Last Admin: 03/05/19 00:07 Dose: 15 gm Documented by: Miscellaneous Information (Consult Glycemic Management Pharmacy) 1 ea N/A UD PRN; Protocol PRN Reason: Consult Stop: 04/03/19 15:47 Nitroglycerin (Nitrostat) 0.4 mg SL UD PRN PRN Reason: Chest Pain Stop: 04/03/19 15:30 Ondansetron HCl (Zofran) 4 mg IV Q6H PRN PRN Reason: Nausea Stop: 04/03/19 15:30 Paroxetine HCl (Paxil) [address] [facility]; Taper Stop: 03/27/19 08:59 Last Admin: 03/06/19 08:25 Dose: 30 mg Documented by: Polyethylene Glycol (Miralax Powder Packet) 17 gm PO DAILY PRN PRN Reason: Constipation Stop: 04/03/19 15:30 Sertraline HCl (Zoloft) 25 mg PO [facility]; Taper Stop: 04/26/19 20:59
--- NOTE | 2019-03-06 14:07 | Hospitalist Progress Note ---
Date of Service March 06, 2019 Assessment & Plan (1) SOB (shortness of breath): This is a 68-year-old female who has significant past medical history of ischemic cardiomyopathy with systolic CHF EF 20 to 25%, presence of AICD, IDDM, CKD stage IV, HTN, mild , HLD, anemia of chronic disease, MDD, underlying dementia who presents to [facility] ED after being hypoxic at hospital follow-up PCP visit. Presented to ER with shortness of breath and low saturation Chest x-ray reported as congestive failure/fluid overload with small bilateral pleural effusion VQ scan was low probably for pulmonary embolism Did not receive any intravenous Lasix on admission Will give a small dose of intravenous Lasix today and monitor kidney function Appreciate nephrology input and recommendation The patient is clinically much better and will continue intravenous Lasix 20 mg once a day Monitor PRP (2) Elevated troponin I level: Initial troponin was 0.150 and serial troponins were unremarkable for ACS Echocardiogram : LV is moderately dilated, LV systolic function is severely reduced with EF of 20 to 25%, akinesis of the anterior, anterior septal and anterior lateral myocardium consistent with the previous infarct, right ventricular systolic function is normal, left atrium is moderately dilated, right atrial size is normal, aortic valve sclerosis moderate without significant aortic stenosis, there is moderate to severe mitral regurgitation. No further cardiac study as per assisted living manager (3) Hyperkalemia: Her potassium was noted to be 5.8 on admission and is completed complicated by impaired renal function Received 10 units IV regular insulin in ED Administer 1 g calcium gluconate Hold lisinopril Potassium is normalized and renal function has been improving with creatinine 1.8 on as of 03/05 Potassium remains elevated at 5.0 Monitor PRP following Lasix therapy (4) Acute worsening of stage 4 chronic kidney disease: Baseline creatinine 1.8 BUN/creatinine 71 and 2.17 today with ratio 32.6 Received fluid challenge in ED, will repeat BMP at 5 PM to observe for improvement or worsening of renal function Received intravenous fluid of 500 mL in the emergency room Was given 20 of Lasix intravenously this morning consult nephrologY-input awaited As above (5) DM II (diabetes mellitus, type II), controlled: A1c 7.6 on 02/04 On Novolin 70/30 as outpatient Patient significantly hyperglycemic in ED 494, s/p IV regular insulin 10 units Consult glycemic pharmacist for assistance -appreciate input Consult pyrotechnist (6) Chronic systolic heart failure: s/p recent hospitalization for acute on chronic CHF exacerbation Most recent echo 02/04 revealed slightly worsened EF 20 to 25%, global hypokinesis, mildly dilated LA and LV, mild left On exam she does not appear volume overloaded Continue metoprolol AICD in place Cardiology consulted We will continue intravenous Lasix of 20 mg daily (7) Ischemic cardiomyopathy: as above no active chest pain ECG changes notable for ST depressions inferior and laterally troponin elevated 0.150, appears chronically elevated trend troponin q6h x 2 (8) AICD (automatic cardioverter/defibrillator) present: Obtain interrogation (9) GERD (gastroesophageal reflux disease): Continue famotidine (10) Anemia: H&H 8.6 and 26.6 H&H 10.6 and 31.3 at most recent discharge No signs or symptoms of active bleeding FOBT all stool Repeat H&H at 5 PM Hemoglobin remains stable at more than 8 (11) Hypertension: bp stable continue metoprolol and amlodipine hold lisinopril and lasix monitor (12) Thrombocytopenia: Plt 116, previous had been 137 (13) DVT prophylaxis: IV heparin low dose until PE/NSTEMI ruled out SCD/TEDS (14) Anxiety and depression: She was noted to be very anxious with depressed mood Seems to have some cognitive impairment We will get a psychiatric evaluation for further management of this problem Appreciate psychiatric input and recommendation Plan to wean off Paxil and start with Zoloft Subjective 03/05 The patient was seen and examined in telemetry unit She was admitted with shortness of breath and hypoxia and was noted to have some renal impairment as well She has been feeling a little bit better since admission Very anxious and may have component of depression//cognitive impairment She denies any chest pain, palpitation, shortness of breath at rest, no abdominal pain, nausea and/or vomiting 03/06 The patient was seen and examined in telemetry unit in presence of the daughter She has been feeling much better today She was evaluated by the psychiatrist and recommendation are in the chart Denies any significant shortness of breath, chest pain, abdominal pain, nausea and/or vomiting Review of Systems Review of Systems: All systems reviewed and are unremarkable except as noted below Constitutional: + fatigue, + malaise and + weakness Physical Exam Physical Exam: Sitting at the side of the bed without any acute distress Constitutional: well developed, well nourished, + ill appearing and + obese Eyes: PERRL, conjunctivae normal, anicteric sclerae ENMT: external ear and nose normal, oropharynx normal Neck: trachea midline, no thyromegaly Respiratory: normal respiratory effort; no respiratory distress Ausc ultation: + diminished lung sounds and + crackles (Minimal crackles at the bases, mostly on the right) Cardiovascular: Rate/Rhythm: regular rate and regular rhythm Heart Sounds: no murmur Extremities: + edema Gastrointestinal (Abdomen): Inspection/Auscultation: abdomen normal to inspection and normal bowel sounds; abdomen not distended Musculoskeletal: No acute arthritis involving any joints Neurologic: moves all extremities and + focal motor deficit Generally weak and lethargic Psychiatric: Orientation: alert Affect: + depressed affect and + anxious affect Insight: + limited insight Judgement: + limited judgement Results & Data Vital Signs (Past 12 Hours) Vital Signs Temp Pulse Pulse Resp BP Pulse Ox 03/06/19 11:13 37.0 C 94 H 18 123/65 94 03/06/19 07:04 36.4 C L 83 18 137/75 97 03/06/19 03:32 36.4 C L 84 18 114/70 92 Laboratory Results Short CBC 03/06/19 Range/Units 05:59 WBC 4.00 L (4.8-10.8) K/uL Hgb 8.3 L (12.0-16.0) g/dL Hct 25.1 L (37-47) % Plt Count 138 (130-400) K/uL BMP 03/06/19 05:59 Sodium 138 Potassium 5.0 Chloride 107 Carbon Dioxide 25 BUN 56 H Creatinine 1.83 H Glucose 149 H Calcium 9.4 Medications Administered Current Inpatient Medications Acetaminophen (Tylenol) 650 mg PO Q4H PRN PRN Reason: Pain or Fever Stop: 04/03/19 15:30 Amlodipine Besylate (Norvasc) 5 mg PO [facility] Stop: 04/04/19 08:59 Last Admin: 03/06/19 09:23 Dose: 5 mg Documented by: Aspirin ([facility]rin Ectab) [facility] Stop: 04/04/19 08:59 Last Admin: 03/06/19 09:23 Dose: 81 mg Documented by: Dextrose (Dextrose 50%) 25 - 50 ml IV UD PRN; Protocol PRN Reason: Hypoglycemia Protocol Stop: 04/03/19 15:30 Famotidine (Pepcid) [facility] Stop: 04/04/19 08:59 Last Admin: 03/06/19 09:23 Dose: 20 mg Documented by: Ferrous Sulfate (Feosol) 325 mg PO QAM [facility] Stop: 04/04/19 08:59 Last Admin: 03/06/19 09:23 Dose: 325 mg Documented by: Gabapentin (Neurontin) 100 [facility] Stop: 04/04/19 08:59 Last Admin: 03/06/19 09:23 Dose: 100 mg Documented by: Glucagon (Glucagen) 1 mg SQ UD PRN; Protocol PRN Reason: Hypoglycemia Protocol Stop: 04/03/19 15:30 Glucose (Dex4 Glucose) 4 - 8 tabs PO UD PRN; Protocol PRN Reason: Hypoglycemia Protocol Stop: 04/03/19 15:30 Glucose (Glucose 40%) 15 - 30 gm PO UD PRN; Protocol PRN Reason: Hypoglycemia Protocol Stop: 04/03/19 15:30 Insulin Aspart (Novolog Flexpen) 0 units SC ACHS [facility] Stop: 04/03/19 16:29 Last Admin: 03/06/19 12:25 Dose: 13 units Documented by: Insulin Human NPH (Novolin N Nph) 12 units SC DAILY@1700 TED; Protocol Stop: 04/05/19 16:59 Insulin Human NPH (Novolin N Nph) 24 units SC DAILY@0800 TED; Protocol Stop: 04/06/19 07:59 Lovastatin (Mevacor) 40 mg PO HS [facility] Stop: 04/03/19 20:59 Last Admin: 03/05/19 20:49 Dose: 40 mg Documented by: Metoprolol Succinate (Toprol Xl) 75 mg PO BID [facility] Stop: 04/03/19 20:59 Last Admin: 03/06/19 08:26 Dose: 75 mg Documented by: Miscellaneous (Carbohydrates For Hypoglycemia) 15 - 30 gm PO UD PRN PRN Reason: Hypoglycemia Protocol Stop: 04/03/19 15:30 Last Admin: 03/05/19 00:07 Dose: 15 gm Documented by: Miscellaneous Information (Consult Glycemic Management Pharmacy) 1 ea N/A UD PRN; Protocol PRN Reason: Consult Stop: 04/03/19 15:47 Nitroglycerin (Nitrostat) 0.4 mg SL UD PRN PRN Reason: Chest Pain Stop: 04/03/19 15:30 Ondansetron HCl (Zofran) 4 mg IV Q6H PRN PRN Reason: Nausea Stop: 04/03/19 15:30 Paroxetine HCl (Paxil) 30 mg PO [facility]; Taper Stop: 03/27/19 08:59 Last Admin: 03/06/19 08:25 Dose: 30 mg Documented by: Polyethylene Glycol (Miralax Powder Packet) 17 gm PO DAILY PRN PRN Reason: Constipation Stop: 04/03/19 15:30 Sertraline HCl (Zoloft) 25 mg PO [facility]; Taper Stop: 04/26/19 20:59
--- NOTE | 2019-03-06 14:37 | Pharmacy Report ---
Pharmacy Glycemic Short Note 2 - Date of Service March 06, 2019 - Glycemic Short BSG Results (Last 24 hours): 03/05/19 03/05/19 03/06/19 16:19 20:09 05:59 Glucose 149 H POC Glucose 105 H 98 03/06/19 03/06/19 07:40 11:17 Glucose POC Glucose 183 H 279 H OUTPATIENT ANTIDIABETIC REGIMEN: * Novolin 70/30 30 units SQ qAM, 15 units SQ qPM * HbA1c: 7.6% (02/04/19) ASSESSMENT: 03/06/19: * Pt received 40 units of insulin yesterday with BSGs ranging from 98- 220 mg/dL * 30 units of NPH * 10 units of Novolog * Fasting BSG is elevated; 183 mg/dL. I will increase basal insulin by 20%. * Lunch BSG also elevated. I will slightly tighten carb coverage. 03/05/19: * Ms Ribera is a 68yo diabetic admitted with ARF. * Patient was severely hyperglycemic on admission (BSGs 494, 401). Patient was provided with an IV insulin bolus in the ED and an increased dose of NPH with dinner. * At midnight BSG check, patient was hypoglycemic (BSG 55). * BID NPH started with breakfast this morning. Patient was refusing to eat until discharged home, so NPH was dosed conservatively. * Will continue to follow and adjust regimen as needed. PLAN FOR INPATIENT GLYCEMIC CONTROL: * Basal insulin * Increase to NPH 24 units SQ qAM, 12 units SQ qPM * Bolus insulin * NovoLog per scale ACHS or Q6hrs while NPO * Goal Range: Low 110 mg/dL - High 150 mg/dL * Correction Factor: 20 mg/dL/unit * Nutritional / Prandial insulin per carb ratio of 1 unit per 6 grams CHO consumed PLAN FOR DISCHARGE: * HbA1c (7.6%) indicates acceptable glycemic control as an outpatient, for a 68yo patient with multiple comorbidities. * Expect that patient may resume home regimen on discharge, as long as she does not report having episodes of hypoglycemia.
[2019-03-06] MEDS: CARBOHYDRATES FOR HYPOGLYCEMIA PO PRN (20:11)
[2019-03-06] MEDS: SERTRALINE HCL 50 MG TABLET PO SCH (21:21)
[2019-03-06] MEDS: LOVASTATIN 20 MG TAB PO SCH (21:21)
[2019-03-07 07:19] LABS: BUN Creatinine Ratio 29.6 (10-20); Calcium 9.2 mg/dl (8.5-10.1); Creatinine Clr Calc Pharmacy 27.3 ml/min; Est GFR (African American) 30.8; Est GFR (Non-African American) 26.6
[2019-03-07] MEDS ORDERED: INSULIN HUMAN NPH SC SCH (08:00)
[2019-03-07] MEDS: INSULIN ASPART 100 UNITS/ML 3 ML PEN SC SCH ×4 (08:38→20:55)
[2019-03-07] MEDS: INSULIN HUMAN NPH SC SCH ×2 (08:42→17:38)
[2019-03-07] MEDS: FAMOTIDINE 20 MG TAB PO SCH (08:44)
[2019-03-07] MEDS: PARoxetine HCl 20 MG TAB PO SCH (08:44)
[2019-03-07] MEDS: GABAPENTIN 100 MG CAP PO SCH (08:44)
[2019-03-07] MEDS: ASPIRIN 81 MG ECTAB PO SCH (08:44)
[2019-03-07] MEDS: FERROUS SULFATE 325 MG TAB PO SCH (08:44)
[2019-03-07] MEDS: METOPROLOL SUCC 25MG EXT REL TAB PO SCH ×2 (08:45→20:59)
[2019-03-07] MEDS: AMLODIPINE BESYLATE 5 MG TAB PO SCH (08:45)
[2019-03-07] MEDS ORDERED: FUROSEMIDE 20 MG in SYRINGE 0 ML IV SCH (10:00)
--- NOTE | 2019-03-07 11:09 | Cardiology Progress Note ---
Date of Service March 07, 2019 Assessment & Plan (1) Chronic HFrEF (heart failure with reduced ejection fraction): (2) Ischemic cardiomyopathy: (3) Acute worsening of stage 4 chronic kidney disease: (4) AICD (automatic cardioverter/defibrillator) present: Patient with history of presumed ischemic cardiomyopathy, cardiac work-up dating back to 2015 included a nuclear stress test on 03/27/2016 revealing a fixed anterior, anteroseptal perfusion defect consistent with scar and calculated ejection fraction of 33% by gated SPECT at that time. She declined cardiac catheterization, and since there was a scar without reversible ischemia and LV systolic dysfunction that did not improve with medication therapy, she underwent implantation of a single-chamber Medtronic AICD for primary prevention of sudden cardiac in September,. At this time, she appears to be euvolemic. We will hold her diuretic dose given persistent mild hyperkalemia, and that her creatinine has trended to be somewhat worse. Continue aspirin, atorvastatin, metoprolol succinate. She is not on an DASH or an arm or Entresto due to renal insufficiency. Pharmacologic DVT prophylaxis has been on hold given history of anemia. Psychiatry input is noted and appreciated. Is difficult to determine if the patient has some degree of depression, or underlying dementia related cognitive impairment. Her mental status is certainly much improved compared to when I met her about a month ago. Agree with plan to wean Paxil and start Zoloft. Disposition: I would speculate that her worsening illness had occurred in the setting of discharge from the acute inpatient rehab. We need to make sure that she has enough support at home, with dedicated visiting nursing to ensure she is receiving her medications as prescribed. Subjective Chief complaint: Follow-up shortness of breath Subjective: Patient sitting upright, she was reading her Bible first thing this morning. Her mental status was much improved compared to when I had previously met her the time of her admission in early February,. Telemetry revealed sinus rhythm in the range of 70 bpm with occasional PVCs. Subjectively, she felt that she was feeling well from a shortness of breath standpoint. She denies any chest discomfort or subjective palpitations. Review of Systems Review of Systems: All systems reviewed & are unremarkable except as noted in HPI & below Physical Exam Physical Exam: Temp Pulse Resp BP Pulse Ox 36.7 C 86 20 111/61 95 03/07/19 07:37 03/07/19 08:00 03/07/19 07:37 03/07/19 07:37 03/07/19 07:37 Constitutional: WD/WN, vitals as above Respiratory: Auscultation: + diminished lung sounds (Minimally decreased breath sounds at the bases); no crackles, no rales and no rhonchi Cardiovascular: RRR, no murmur, no edema Gastrointestinal (Abdomen): normal bowel sounds, soft, nontender, no hepatosplenomegaly Skin: no rashes, warm and dry Neurologic: PERRL, EOMI, accommodation nl, no face palsy, no dysarthria Results & Data Vital Signs (Past 12 Hours) Vital Signs Temp Pulse Pulse Pulse Resp BP Pulse Ox 03/07/19 08:00 86 03/07/19 07:37 36.7 C 79 20 111/61 95 03/07/19 04:10 36.8 C 86 20 125/72 96 03/06/19 23:50 36.5 C 88 18 119/80 97 03/06/19 23:34 92 H Laboratory Results Comprehensive Metabolic Panel 03/07/19 Range/Units 06:36 Sodium 138 (136-145) mmol/L Potassium 5.0 (3.5-5.1) mmol/L Chloride 108 H (98-107) mmol/L Carbon Dioxide 24 (21-32) mmol/L BUN 56 H (7-18) mg/dl Creatinine 1.89 H (0.6-1.2) mg/dl Glucose 112 H (70-99) mg/dl Calcium 9.2 (8.5-10.1) mg/dl Intake and Output 03/06/19 03/07/19 03/07/19 22:59 06:59 14:59 Intake Total 490 / 730 Output Total 350 / 1200 500 / 1200 Balance 140 / -470 -500 / -470 Intake: Oral 490 / 730 Output: Urine 500 / 850 Urine/Stool Mix 350 / 350 Other: Weight 71.1 kg Diagnostic Findings EKG performed 03/06/2019 at 708 and reviewed independently: Sinus rhythm at 80 bpm with occasional PVCs, T wave inversions noted in the inferior and lateral leads, as well as lead V3, which were slightly more prominent compared to her tracing performed on 02/06/2019, 02/05/2019 and 02/04/2019 Echocardiogram performed 03/05/2019: Severe left ventricular cavity dilatation, akinesis is noted of the anterior, anteroseptal, and anterolateral myocardium consistent with previous infarction, LVEF severely reduced in the range of 20-25%. Moderate to severe mitral regurgitation was present. Compared to the prior study performed 02/04/2019, regional wall motion abnormalities are now noted as compared to a global left ventricular hypokinesis described on the prior echocardiogram, the severe left ventricular systolic dysfunction is unchanged.
--- NOTE | 2019-03-07 14:54 | Pharmacy Report ---
Glycemic Control Progress Note - Date of Service March 07, 2019 - Scope Glycemic Pharmacist consulted for glycemic control to write orders per [facility] inpatient glycemic control protocol. - Objective Accuchecks BSG(last 24 hours):: 03/06/19 03/06/19 03/06/19 16:09 20:11 20:27 Glucose POC Glucose 215 H 69 L* 83 03/07/19 03/07/19 03/07/19 06:36 07:09 11:28 Glucose 112 H POC Glucose 132 H 534 H* 03/07/19 03/07/19 03/07/19 11:28 11:30 12:09 Glucose 255 H POC Glucose 291 H 274 H - Recent Pertinent Medications The patient is currently receiving: * Basal insulin: NPH 20 units in the morning and 10 units at dinner * Correctional Insulin: Novolog Correction per scale ACHS Goal Range: Low 110 mg/dL - High 150 mg/dL Correction Factor: 20 mg/dL/unit * Prandial insulin: Per carb ratio of 1 unit per 6 grams CHO consumed - Outpatient Anti-Diabetic Meds Novolin 70/30 -- 30 units qAM and 15 units at dinner - Assessment & Plan ASSESSMENT: * See progress note from 03/05/19 for more background info, in short: * Pt receiving SQ basal bolus insulin regimen for hyperglycemia secondary to baseline DM (outpatient regimen on hold). * Patient is currently receiving an average of 63 units of insulin per day * 32 units of basal insulin * 31 units of prandial/correctional insulin * BSGs ranging 69 - 279 mg/dl over the past 24hrs * Changes needed to insulin regimen: * AM Fasting BSG = 132 mg/dl. This is in goal range for patient based on inpatient targets and co-morbidities. Therefore Basal insulin will be continued. Morning NPH may require an increase but uncertain at this point as previous hospitalization the patient required 30 units (20 units in AM and 10 units in PM). * Post-prandial BSGs have demonstrated a trend. Patient has significant spikes at lunchtime then decreases accordingly. Will tighten breakfast only for tomorrow and see if this helps. Will not increase NPH since this is being done. * Total daily dose = 60-70 units. PLAN FOR INPATIENT GLYCEMIC CONTROL: * Basal insulin * NPH 20 units in the morning and 12 units in the PM units * Bolus insulin * NovoLog per scale ACHS or Q6hrs while NPO * Goal Range: Low 110 mg/dL - High 150 mg/dL * Correction Factor: 20 mg/dL/unit * Nutritional / Prandial insulin per carb ratio of 1 unit per 6 grams CHO consumed (4 with breakfast) * Please note that the plan above was derived based on current level of insulin resistance and hospital stress. These recommendations are appropriate for inpatient admission only. Plan of care upon discharge will need to be reassessed to avoid potential outpatient hypo/hyperglycemia. Thank you.
--- NOTE | 2019-03-07 16:15 | Hospitalist Progress Note ---
Date of Service March 07, 2019 Assessment & Plan (1) SOB (shortness of breath): This is a 68-year-old female who has significant past medical history of ischemic cardiomyopathy with systolic CHF EF 20 to 25%, presence of AICD, IDDM, CKD stage IV, HTN, mild , HLD, anemia of chronic disease, MDD, underlying dementia who presents to [facility] ED after being hypoxic at hospital follow-up PCP visit. Presented to ER with shortness of breath and low saturation Chest x-ray reported as congestive failure/fluid overload with small bilateral pleural effusion VQ scan was low probably for pulmonary embolism Did not receive any intravenous Lasix on admission Will give a small dose of intravenous Lasix today and monitor kidney function Appreciate nephrology input and recommendation The patient is clinically much better and will continue intravenous Lasix 20 mg once a day Monitor PRP Clinically much better without any shortness of breath at rest (2) Elevated troponin I level: Initial troponin was 0.150 and serial troponins were unremarkable for ACS Echocardiogram : LV is moderately dilated, LV systolic function is severely reduced with EF of 20 to 25%, akinesis of the anterior, anterior septal and anterior lateral myoca rdium consistent with the previous infarct, right ventricular systolic function is normal, left atrium is moderately dilated, right atrial size is normal, aortic valve sclerosis moderate without significant aortic stenosis, there is moderate to severe mitral regurgitation. No further cardiac study as per social services technician (3) Hyperkalemia: Her potassium was noted to be 5.8 on admission and is completed complicated by impaired renal function Received 10 units IV regular insulin in ED Administer 1 g calcium gluconate Hold lisinopril Potassium is normalized and renal function has been improving with creatinine 1.8 on as of 03/05 Potassium remains elevated at 5.0 Monitor PRP following Lasix therapy Lasix has been on hold for now Will monitor kidney function and evaluate the need for Lasix in a day or 2 (4) Acute worsening of stage 4 chronic kidney disease: Baseline creatinine 1.8 BUN/creatinine 71 and 2.17 today with ratio 32.6 Received fluid challenge in ED, will repeat BMP at 5 PM to observe for improvement or worsening of renal function Received intravenous fluid of 500 mL in the emergency room Was given 20 of Lasix intravenously this morning consult nephrologY-input awaited As above (5) DM II (diabetes mellitus, type II), controlled: A1c 7.6 on 02/04 On Novolin 70/30 as outpatient Patient significantly hyperglycemic in ED 494, s/p IV regular insulin 10 units Consult glycemic pharmacist for assistance -appreciate input Consult director correctional agency-appreciate input and recommendation (6) Chronic systolic heart failure: s/p recent hospitalization for acute on chronic CHF exacerbation Most recent echo 02/04 revealed slightly worsened EF 20 to 25%, global hypokinesis, mildly dilated LA and LV, mild left On exam she does not appear volume overloaded Continue metoprolol AICD in place Cardiology consulted We will continue intravenous Lasix of 20 mg daily (7) Ischemic cardiomyopathy: as above no active chest pain ECG changes notable for ST depressions inferior and laterally troponin elevated 0.150, appears chronically elevated trend troponin q6h x 2 No ACS (8) AICD (automatic cardioverter/defibrillator) present: Obtain interrogation (9) GERD (gastroesophageal reflux disease): Continue famotidine (10) Anemia: H&H 8.6 and 26.6 H&H 10.6 and 31.3 at most recent discharge No signs or symptoms of active bleeding FOBT all stool Repeat H&H at 5 PM Hemoglobin remains stable at more than 8 (11) Hypertension: bp stable continue metoprolol and amlodipine hold lisinopril and lasix monitor (12) Thrombocytopenia: Plt 116, previous had been 137 (13) DVT prophylaxis: IV heparin low dose until PE/NSTEMI ruled out SCD/TEDS (14) Anxiety and depression: She was noted to be very anxious with depressed mood Seems to have some cognitive impairment We will get a psychiatric evaluation for further management of this problem Appreciate psychiatric input and recommendation Plan to wean off Paxil and start with Zoloft Subjective 03/05 The patient was seen and examined in telemetry unit She was admitted with shortness of breath and hypoxia and was noted to have some renal impairment as well She has been feeling a little bit better since admission Very anxious and may have component of depression//cognitive impairment She denies any chest pain, palpitation, shortness of breath at rest, no abdominal pain, nausea and/or vomiting 03/06 The patient was seen and examined in telemetry unit in presence of the daughter She has been feeling much better today She was evaluated by the psychiatrist and recommendation are in the chart Denies any significant shortness of breath, chest pain, abdominal pain, nausea and/or vomiting 03/07 The patient was seen and examined in the telemetry unit She has been feeling a lot better Denies any chest pain, shortness of breath, any abdominal pain, nausea and/or vomiting Review of Systems Review of Systems: All systems reviewed and are unremarkable except as noted below Constitutional: + fatigue, + malaise and + weakness Her generalized weakne ss has been improving a lot Physical Exam Physical Exam: Sitting at the age of the bed without any acute symptoms Constitutional: well developed, well nourished, + ill appearing and + obese Eyes: PERRL, conjunctivae normal, anicteric sclerae ENMT: external ear and nose normal, oropharynx normal Neck: trachea midline, no thyromegaly Respiratory: normal respiratory effort; no respiratory distress Auscultation: lungs clear to auscultation bilaterally Cardiovascular: Rate/Rhythm: regular rate and regular rhythm Heart Sounds: no murmur Extremities: + edema Gastrointestinal (Abdomen): Inspection/Auscultation: abdomen normal to inspection and normal bowel sounds; abdomen not distended Neurologic: moves all extremities and + focal motor deficit Psychiatric: Orientation: alert Affect: + depressed affect and + anxious affect Insight: + limited insight Judgement: + limited judgement Results & Data Vital Signs (Past 12 Hours) Vital Signs Temp Pulse Pulse Resp BP Pulse Ox 03/07/19 11:53 37 C 84 18 107/58 L 97 03/07/19 08:00 86 03/07/19 07:37 36.7 C 79 20 111/61 95 Laboratory Results [facility] 03/07/19 03/07/19 06:36 12:09 Sodium 138 Potassium 5.0 Chloride 108 H Carbon Dioxide 24 BUN 56 H Creatinine 1.89 H Glucose 112 H 255 H Calcium 9.2 Medications Administered Current Inpatient Medications Acetaminophen (Tylenol) 650 mg PO Q4H PRN PRN Reason: Pain or Fever Stop: 04/03/19 15:30 Amlodipine Besylate (Norvasc) 5 mg PO [facility] Stop: 04/04/19 08:59 Last Admin: 03/07/19 08:45 Dose: 5 mg Documented by: Aspirin (Ecotrin Ectab) [facility] Stop: 04/04/19 08:59 Last Admin: 03/07/19 08:44 Dose: 81 mg Documented by: Dextrose (Dextrose 50%) 25 - 50 ml IV UD PRN; Protocol PRN Reason: Hypoglycemia Protocol Stop: 04/03/19 15:30 Famotidine (Pepcid) 20 mg PO QAM [facility] Stop: 04/04/19 08:59 Last Admin: 03/07/19 08:44 Dose: 20 mg Documented by: Ferrous Sulfate (Feosol) 325 mg PO QAM [facility] Stop: 04/04/19 08:59 Last Admin: 03/07/19 08:44 Dose: 325 mg Documented by: Gabapentin (Neurontin) 100 mg PO QAM [facility] Stop: 04/04/19 08:59 Last Admin: 03/07/19 08:44 Dose: 100 mg Documented by: Glucagon (Glucagen) 1 mg SQ UD PRN; Protocol PRN Reason: Hypoglycemia Protocol Stop: 04/03/19 15:30 Glucose (Dex4 Glucose) 4 - 8 tabs PO UD PRN; Protocol PRN Reason: Hypoglycemia Protocol Stop: 04/03/19 15:30 Glucose (Glucose 40%) 15 - 30 gm PO UD PRN; Protocol PRN Reason: Hypoglycemia Protocol Stop: 04/03/19 15:30 Insulin Aspart (Novolog Flexpen) 0 units SC DAILY@0730 TED Stop: 04/07/19 07:29 Insulin Aspart (Novolog Flexpen) 0 units SC DAILY@1130,1630,2100 TED Stop: 04/06/19 16:29 Insulin Human NPH (Novolin N Nph) 12 units SC DAILY@1700 TED; Protocol Stop: 04/05/19 16:59 Last Admin: 03/06/19 16:52 Dose: 12 units Documented by: Insulin Human NPH (Novolin N Nph) 20 units SC DAILY@0800 TED; Protocol Stop: 04/06/19 07:59 Last Admin: 03/07/19 08:42 Dose: 20 units Documented by: Lovastatin (Mevacor) 40 mg PO HS [facility] Stop: 04/03/19 20:59 Last Admin: 03/06/19 21:21 Dose: 40 mg Documented by: Metoprolol Succinate (Toprol Xl) 75 mg PO BID [facility] Stop: 04/03/19 20:59 Last Admin: 03/07/19 08:45 Dose: 75 mg Documented by: Miscellaneous (Carbohydrates For Hypoglycemia) 15 - 30 gm PO UD PRN PRN Reason: Hypoglycemia Protocol Stop: 04/03/19 15:30 Last Admin: 03/06/19 20:11 Dose: 15 gm Documented by: Miscellaneous Information (Consult Glycemic Management Pharmacy) 1 ea N/A UD PRN; Protocol PRN Reason: Consult Stop: 04/03/19 15:47 Nitroglycerin (Nitrostat) 0.4 mg UD PRN PRN Reason: Chest Pain Stop: 04/03/19 15:30 Ondansetron HCl (Zofran) 4 mg IV Q6H PRN PRN Reason: Nausea Stop: 04/03/19 15:30 Paroxetine HCl (Paxil) 30 mg PO [facility]; Taper Stop: 03/27/19 08:59 Last Admin: 03/07/19 08:44 Dose: 30 mg Documented by: Polyethylene Glycol (Miralax Powder Packet) 17 gm PO DAILY PRN PRN Reason: Constipation Stop: 04/03/19 15:30 Sertraline HCl (Zoloft) 25 mg PO [facility]; Taper Stop: 04/26/19 20:59 Last Admin: 03/06/19 21:21 Dose: 25 mg Documented by:
[2019-03-07] MEDS: CARBOHYDRATES FOR HYPOGLYCEMIA PO PRN ×2 (20:28→20:48)
[2019-03-07] MEDS: LOVASTATIN 20 MG TAB PO SCH (20:58)
[2019-03-07] MEDS: SERTRALINE HCL 50 MG TABLET PO SCH (20:59)
[2019-03-08 06:52] LABS: BUN Creatinine Ratio 27.5 (10-20); Calcium 8.7 mg/dl (8.5-10.1); Creatinine Clr Calc Pharmacy 26.6 ml/min; Est GFR (African American) 29.9; Est GFR (Non-African American) 25.8; Magnesium 2.2 mg/dl (1.8-2.4); Potassium 5.1 mmol/L (3.5-5.1)
[2019-03-08] MEDS: FERROUS SULFATE 325 MG TAB PO SCH (09:27)
[2019-03-08] MEDS: PARoxetine HCl 20 MG TAB PO SCH (09:27)
[2019-03-08] MEDS: AMLODIPINE BESYLATE 5 MG TAB PO SCH (09:27)
[2019-03-08] MEDS: METOPROLOL SUCC 25MG EXT REL TAB PO SCH ×2 (09:27→20:43)
[2019-03-08] MEDS: FAMOTIDINE 20 MG TAB PO SCH (09:29)
[2019-03-08] MEDS: GABAPENTIN 100 MG CAP PO SCH (09:29)
[2019-03-08] MEDS: ASPIRIN 81 MG ECTAB PO SCH (09:29)
[2019-03-08] MEDS: INSULIN ASPART 100 UNITS/ML 3 ML PEN SC SCH ×4 (09:33→20:42)
[2019-03-08] MEDS: INSULIN HUMAN NPH SC SCH (09:34)
--- NOTE | 2019-03-08 11:51 | Progress Note ---
DATE: 03/08/2019 SUBJECTIVE: The patient appears to be stable. She denies any nausea, vomiting, chest pain, shortness of breath, orthopnea or really any symptoms. She was very comfortable without any oxygen. OBJECTIVE: HEENT: Mucous membrane is moist. NECK: Supple. No jugular venous distention. VITAL SIGNS: Blood pressure 123/76, pulse rate 82, temperature 36.6, 93% on room air. CHEST: Bilateral clear to auscultation. CARDIOVASCULAR: S1, S2, regular. ABDOMEN: Soft, nontender. EXTREMITIES: Shows no edema. LABORATORY TESTS: Reviewed. This morning labs show sodium 136, potassium 5.1, BUN 53, creatinine 1.94. Hemoglobin 8.3, platelet count 138. ASSESSMENT: Acute worsening of stage IV kidney disease. The patient is with chronic kidney disease stage IV, baseline creatinine of just under 2. At this point, her creatinine is about the baseline. She was admitted with shortness of breath, which she no longer has. RECOMMENDATIONS: 1. Restart the Lasix 40 mg daily. 2. She can be followed up as outpatient at this time. 3. Hemoglobin is low and should probably be considered for Procrit therapy, but this can be done as an outpatient. Continue iron tablet for now. Please follow with Nephrology within 1 week. MTDD
--- NOTE | 2019-03-08 12:20 | Hospitalist Progress Note ---
Date of Service March 08, 2019 Assessment & Plan (1) SOB (shortness of breath): This is a 68-year-old female who has significant past medical history of ischemic cardiomyopathy with systolic CHF EF 20 to 25%, presence of AICD, IDDM, CKD stage IV, HTN, mild , HLD, anemia of chronic disease, MDD, underlying dementia who presents to [facility] ED after being hypoxic at hospital follow-up PCP visit. Presented to ER with shortness of breath and low saturation Chest x-ray reported as congestive failure/fluid overload with small bilateral pleural effusion VQ scan was low probably for pulmonary embolism Did not receive any intravenous Lasix on admission Will give a small dose of intravenous Lasix today and monitor kidney function Appreciate nephrology input and recommendation The Lasix was not given yesterday and today as because the creatinine has been going higher Clinically much better without any shortness of breath at rest Appreciate nephrology recommendation to restart Lasix 40 mg daily (2) Elevated troponin I level: Initial troponin was 0.150 and serial troponins were unremarkable for ACS Echocardiogram : LV is moderately dilated, LV systolic function is severely reduced with EF of 20 to 25%, akinesis of the anterior, anterior septal and anterior lateral myocardium consistent with the previous infarct, right ventricular systolic function is normal, left atrium is moderately dilated, right atrial size is normal, aortic valve sclerosis moderate without significant aortic stenosis, there is moderate to severe mitral regurgitation. No further cardiac study as per bathhouse attendant (3) Hyperkalemia: Her potassium was noted to be 5.8 on admission and is completed complicated by impaired renal function Received 10 units IV regular insulin in ED Administer 1 g calcium gluconate Hold lisinopril Potassium is normalized and renal function has been improving with creatinine 1.8 on as of 03/05 Potassium remains elevated at 5.0 Monitor PRP following Lasix therapy Lasix has been on hold for now Will monitor kidney function and evaluate the need for Lasix in a day or 2 She did not receive any Lasix yesterday and will start from today as per head of advertising (4) Acute worsening of stage 4 chronic kidney disease: Baseline creatinine 1.8 BUN/creatinine 71 and 2.17 today with ratio 32.6 Received fluid challenge in ED, will repeat BMP at 5 PM to observe for improvement or worsening of renal function Received intravenous fluid of 500 mL in the emergency room Was given 20 of Lasix intravenously this morning consult nephrologY-input awaited Will need an appointment with head of advertising within 1 week following discharge from the hospital (5) DM II (diabetes mellitus, type II), controlled: A1c 7.6 on 02/04 On Novolin 70/30 as outpatient Patient significantly hyperglycemic in ED 494, s/p IV regular insulin 10 units Consult glycemic pharmacist for assistance -appreciate input Consult certified lactation educator-appreciate input and recommendation (6) Chronic systolic heart failure: s/p recent hospitalization for acute on chronic CHF exacerbation Most recent echo 02/04 revealed slightly worsened EF 20 to 25%, global hypokinesis, mildly dilated LA and LV, mild left On exam she does not appear volume overloaded Continue metoprolol AICD in place Cardiology consulted We will continue intravenous Lasix of 20 mg daily Did not get any Lasix yesterday there is 03/07 Will start 40 mill grams daily from today (7) Ischemic cardiomyopathy: as above no active chest pain ECG changes notable for ST depressions inferior and laterally troponin elevated 0.150, appears chronically elevated trend troponin q6h x 2 No ACS (8) AICD (automatic cardioverter/defibrillator) present: Obtain interrogation (9) GERD (gastroesophageal reflux disease): Continue famotidine (10) Anemia: H&H 8.6 and 26.6 H&H 10.6 and 31.3 at most recent discharge No signs or symptoms of active bleeding FOBT all stool Repeat H&H at 5 PM Hemoglobin remains stable at more than 8 (11) Hypertension: bp stable continue metoprolol and amlodipine hold lisinopril and lasix monitor (12) Thrombocytopenia: Plt 116, previous had been 137 (13) DVT prophylaxis: IV heparin low dose until PE/NSTEMI ruled out SCD/TEDS (14) Anxiety and depression: She was noted to be very anxious with depressed mood Seems to have some cognitive impairment We will get a psychiatric evaluation for further management of this problem Appreciate psychiatric input and recommendation Plan to wean off Paxil and start with Zoloft Subjective 03/05 The patient was seen and examined in telemetry unit She was admitted with shortness of breath and hypoxia and was noted to have some renal impairment as well She has been feeling a little bit better since admission Very anxious and may have component of depression//cognitive impairment She denies any chest pain, palpitation, shortness of breath at rest, no abdominal pain, nausea and/or vomiting 03/06 The patient was seen and examined in telemetry unit in presence of the daughter She has been feeling much better today She was evaluated by the psychiatrist and recommendation are in the chart Denies any significant shortness of breath, chest pain, abdominal pain, nausea and/or vomiting 03/07 The patient was seen and examined in the telemetry unit She has been feeling a lot better Denies any chest pain, shortness of breath, any abdominal pain, nausea and/or vomiting 03/08 The patient was seen and examined in telemetry unit She has been free of any symptoms Ambulating without any difficulty Her creatinine is noted to be higher today Review of Systems Review of Systems: All systems reviewed and are unremarkable except as noted below Constitutional: + fatigue, + malaise and + weakness Her generalized weakness has been improving a lot Physical Exam Physical Exam: Lying in bed comfortably Constitutional: well developed, well nourished, + ill appearing and + obese Eyes: PERRL, conjunctivae normal, anicteric sclerae ENMT: external ear and nose normal, oropharynx normal Neck: trachea midline, no thyromegaly Respiratory: normal respiratory effort; no respiratory distress Auscultation: lungs clear to auscultation bilaterally Cardiovascular: Rate/Rhythm: regular rate and regular rhythm Heart Sounds: no murmur Extremities: + edema (Trace edema bilaterally) Gastrointestinal (Abdomen): Inspection/Auscultation: abdomen normal to inspection and normal bowel sounds; abdomen not distended Neurologic: moves all extremities and + focal motor deficit Psychiatric: Orientation: alert Affect: + depressed affect and + anxious affect Insight: + limited insight Judgement: + limited judgement Results & Data Vital Signs (Past 12 Hours) Vital Signs Temp Pulse Resp BP Pulse Ox 03/08/19 11:26 37.0 C 78 19 115/68 91 03/08/19 07:07 36.6 C 82 19 123/76 93 03/08/19 03:45 36.6 C 87 18 118/63 93 Laboratory Results [facility] 03/07/19 03/08/19 12:09 06:01 Sodium 136 Potassium 5.1 Chloride 107 Carbon Dioxide 25 BUN 53 H Creatinine 1.94 H Glucose 255 H 119 H Calcium 8.7 Medications Administered Current Inpatient Medications Acetaminophen (Tylenol) 650 mg PO Q4H PRN PRN Reason: Pain or Fever Stop: 04/03/19 15:30 Amlodipine Besylate (Norvasc) 5 mg PO [facility] Stop: 04/04/19 08:59 Last Admin: 03/08/19 09:27 Dose: 5 mg Documented by: Aspirin (Ecotrin Ectab) 81 mg PO [facility] Stop: 04/04/19 08:59 Last Admin: 03/08/19 09:29 Dose: 81 mg Documented by: Dextrose (Dextrose 50%) 25 - 50 ml IV UD PRN; Protocol PRN Reason: Hypoglycemia Protocol Stop: 04/03/19 15:30 Famotidine (Pepcid) 20 mg PO [facility] Stop: 04/04/19 08:59 Last Admin: 03/08/19 09:29 Dose: 20 mg Documented by: Ferrous Sulfate (Feosol) 325 mg PO [facility] Stop: 04/04/19 08:59 Last Admin: 03/08/19 09:27 Dose: 325 mg Documented by: Gabapentin (Neurontin) 100 mg PO [facility] Stop: 04/04/19 08:59 Last Admin: 03/08/19 09:29 Dose: 100 mg Documented by: Glucagon (Glucagen) 1 mg SQ UD PRN; Protocol PRN Reason: Hypoglycemia Protocol Stop: 04/03/19 15:30 Glucose (Dex4 Glucose) 4 - 8 tabs PO UD PRN; Protocol PRN Reason: Hypoglycemia Protocol Stop: 04/03/19 15:30 Glucose (Glucose 40%) 15 - 30 gm PO UD PRN; Protocol PRN Reason: Hypoglycemia Protocol Stop: 04/03/19 15:30 Insulin Aspart (Novolog Flexpen) 0 units SC DAILY@0730 TED Stop: 04/07/19 07:29 Last Admin: 03/08/19 09:33 Dose: 15 units Documented by: Insulin Aspart (Novolog Flexpen) 0 units SC DAILY@1130,1630,2100 TED Stop: 04/06/19 16:29 Last Admin: 03/08/19 11:51 Dose: 14 units Documented by: Insulin Human NPH (Novolin N Nph) 20 units SC DAILY@0800 TED; Protocol Stop: 04/06/19 07:59 Last Admin: 03/08/19 09:34 Dose: 20 units Documented by: Insulin Human NPH (Novolin N Nph) 8 units SC DAILY@1700 TED; Protocol Stop: 04/07/19 16:59 Lovastatin (Mevacor) 40 mg PO HS TED Stop: 04/03/19 20:59 Last Admin: 03/07/19 20:58 Dose: 40 mg Documented by: Metoprolol Succinate (Toprol Xl) 75 mg PO BID TED Stop: 04/03/19 20:59 Last Admin: 03/08/19 09:27 Dose: 75 mg Documented by: Miscellaneous (Carbohydrates For Hypoglycemia) 15 - 30 gm PO UD PRN PRN Reason: Hypoglycemia Protocol Stop: 04/03/19 15:30 Last Admin: 03/07/19 20:48 Dose: 15 gm Documented by: Miscellaneous Information (Consult Glycemic Management Pharmacy) 1 ea N/A UD PRN; Protocol PRN Reason: Consult Stop: 04/03/19 15:47 Nitroglycerin (Nitrostat) 0.4 mg SL UD PRN PRN Reason: Chest Pain Stop: 04/03/19 15:30 Ondansetron HCl (Zofran) 4 mg IV Q6H PRN PRN Reason: Nausea Stop: 04/03/19 15:30 [facility]ox[facility] ([facility]il) [facility] T[facility] Stop: 03/27/19 08:59 Last Admin: 03/08/19 09:27 Dose: 30 mg Documented by: Polyethylene Glycol (Miralax Powder Packet) 17 gm PO DAILY PRN PRN Reason: Constipation Stop: 04/03/19 15:30 Sertraline HCl (Zoloft) 25 mg PO HS [facility]; Taper Stop: 04/26/19 20:59 Last Admin: 03/07/19 20:59 Dose: 25 mg Documented by:
--- NOTE | 2019-03-08 14:05 | Communication Note ---
Date of Service: March 08, 2019 Patient resting comfortably on my arrival to see her and I did not wake her. Telemetry reveals stable findings of sinus rhythm at 70 be per minute range with PVCs. Nephrology input noted and appreciated.
[2019-03-08] MEDS: FUROSEMIDE 40 MG TAB PO SCH (14:20)
--- NOTE | 2019-03-08 14:24 | Pharmacy Report ---
Glycemic Control Progress Note - Date of Service March 08, 2019 - Scope Glycemic Pharmacist consulted for glycemic control to write orders per [facility] inpatient glycemic control protocol. - Objective Accuchecks BSG(last 24 hours):: 03/07/19 03/07/19 03/07/19 16:37 20:12 20:13 Glucose POC Glucose 180 H 64 L* 63 L* 03/07/19 03/07/19 03/08/19 20:28 20:38 06:01 Glucose 119 H POC Glucose 67 L* 96 03/08/19 03/08/19 07:22 11:24 Glucose POC Glucose 157 H 318 H* - Recent Pertinent Medications The patient is currently receiving: * Basal insulin: NPH 20 units in AM and 12 units in the PM * Correctional Insulin: Novolog Correction per scale ACHS Goal Range: Low 110 mg/dL - High 150 mg/dL Correction Factor: 25 mg/dL/unit (20 mg/dL/unit at breakfast) * Prandial insulin: Per carb ratio of 1 unit per 6 grams CHO consumed (1 unit per 4 grams of CHO consumed at breakfast) - Outpatient Anti-Diabetic Meds Novolin 70/30 30 units in morning and 15 units at bedtime - Assessment & Plan ASSESSMENT: * See progress note from 03/05/19 for more background info, in short: * Pt receiving SQ basal bolus insulin regimen for hyperglycemia secondary to baseline DM (outpatient regimen on hold). * Patient is currently receiving an average of 65 units of insulin per day * 32 units of basal insulin * 33 units of prandial/correctional insulin * BSGs ranging 64 - 255 mg/dl over the past 24hrs * Changes needed to insulin regimen: * AM Fasting BSG = 119 mg/dl. This is in goal range for patient based on inpatient targets and co-morbidities. The patient's fasting is trending downwards. HOWEVER every night the patient has a low blood sugar at bedtime. Unsure if this is from stacking of Novolog throughout the day OR if this is from NPH at dinnertime. Regardless 32 units is too aggressive as evidence by decreased fasting. Reduce nighttime NPH to 6 units. Nursing asked patient when she takes 70/30 at home. Per patient she takes this at bedtime (15 units). Reduce NPH and move to bedtime to mimic patient's home regimen. This should eliminate low at bedtime. If low tomorrow morning, recommend elimination of bedtime NPH. * Post-prandial BSGs are elevated. Yesterday, tightened CF/Cr for breakfast. Today's lunch blood sugar was extremely elevated due to patient eating banana prior to lunch BSG. Told nursing to only cover carbohydrates at lunch (patient still at 81 grams of carbohydrates). Monitor. * Total daily dose = ~60-70 units. PLAN FOR INPATIENT GLYCEMIC CONTROL: * Decreasing NPH to 20 units in the morning and 6 units in the evening * Continuing correction factor of 25 mg/dl/unit (20 mg/dL/unit for breakfast) * Continuing carb ratio of 1 unit per 6 grams CHO consumed (4 units for breakfast0 * Continuing goal range of Low 110 mg/dL - High 150 mg/dL * Please note that the plan above was derived based on current level of insulin resistance and hospital stress. These recommendations are appropriate for inpatient admission only. Plan of care upon discharge will need to be reassessed to avoid potential outpatient hypo/hyperglycemia. Thank you.
[2019-03-08] MEDS ORDERED: INSULIN HUMAN NPH SC SCH ×3 (17:00→21:00)
[2019-03-08] MEDS: LOVASTATIN 20 MG TAB PO SCH (20:43)
[2019-03-08] MEDS: SERTRALINE HCL 50 MG TABLET PO SCH (20:44)
[2019-03-09 06:58] LABS: Hematocrit (blood only) 25.5 % (37-47); Hemoglobin 8.5 g/dL (12.0-16.0); Mean Corpuscular Hemoglobin 32.7 pg (25-34); Mean Corpuscular Hgb Conc 33.3 g/dL (32-36); Mean Corpuscular Volume 98.1 fL (80-100); Mean Platelet Volume 10.2 fL (7.4-10.4); Platelet Count 143 K/uL (130-400); RDW Coefficient of Variation 14.1 % (11.5-14.5); RDW Standard Deviation 49.5 fL (36.4-46.3); White Blood Count 4.57 K/uL (4.8-10.8)
[2019-03-09 07:19] LABS: Eosinophils # (auto) 0.03 K/uL (0-0.5); Eosinophils % (auto) 0.7 %; Immature Granulocytes # (auto) 0.01 K/uL (0.00-0.02); Immature Granulocytes % (auto) 0.2 %; Lymphocytes # (auto) 2.33 K/uL (1.2-3.4); Monocytes # (auto) 0.47 K/uL (0.11-0.59); Monocytes % (auto) 10.3 %; Neutrophils # (auto) 1.73 K/uL (1.4-6.5); Neutrophils % (auto) 37.8 %
[2019-03-09 07:45] LABS: BUN Creatinine Ratio 29.8 (10-20); Calcium 8.9 mg/dl (8.5-10.1); Creatinine Clr Calc Pharmacy 30.9 ml/min; Est GFR (African American) 35.8; Est GFR (Non-African American) 30.9; Potassium 4.8 mmol/L (3.5-5.1)
[2019-03-09] MEDS: INSULIN ASPART 100 UNITS/ML 3 ML PEN SC SCH ×3 (08:31→17:06)
[2019-03-09] MEDS: INSULIN HUMAN NPH SC SCH (08:32)
[2019-03-09] MEDS: FUROSEMIDE 40 MG TAB PO SCH (08:33)
[2019-03-09] MEDS: AMLODIPINE BESYLATE 5 MG TAB PO SCH (08:33)
[2019-03-09] MEDS: ASPIRIN 81 MG ECTAB PO SCH (08:33)
[2019-03-09] MEDS: PARoxetine HCl 20 MG TAB PO SCH (08:34)
[2019-03-09] MEDS: FAMOTIDINE 20 MG TAB PO SCH (08:34)
[2019-03-09] MEDS: FERROUS SULFATE 325 MG TAB PO SCH (08:34)
[2019-03-09] MEDS: METOPROLOL SUCC 25MG EXT REL TAB PO SCH (08:35)
[2019-03-09] MEDS: GABAPENTIN 100 MG CAP PO SCH (08:35)
--- NOTE | 2019-03-09 10:01 | Nephrology Progress Note ---
Date of Service March 09, 2019 Assessment & Plan (1) Acute worsening of stage 4 chronic kidney disease: Patient with CKD stage IV baseline creatinine of under 2. She was admitted with the shortness of breath found to have acute kidney injury with creatinine of 2.1. Creatinine now back to baseline at 1.67 today. -Continue diuresis with 40 mg of Lasix p.o. daily. -Monitor input output and daily BMP -Avoid nephrotoxins unless lifesaving. -She will need renal follow-up as an outpatient on discharge (2) Hypoxia: Due to CHF exacerbation. Improving with oxygen and diuresis. She will likely be discharged on 40 mg p.o. -She should be on 2 g sodium diet and fluid restriction of about 40 ounces daily. (3) Hyperkalemia: Patient admitted with potassium of 5.8. She is better at 4.8 today. Likely due to advanced CKD. -Continue Lasix. -She should be on a potassium restricted diet. (4) Anemia: Patient with hemoglobin of 8.5. we will give Epogen 20,000 units subcu once. Subjective Patient feels much better today. She is off oxygen. No shortness of breath no leg swelling. No urinary symptoms. No vomiting or diarrhea. She is ambulating with a walker. Review of Systems Review of Systems: All systems reviewed & are unremarkable except as noted in HPI & below Physical Exam Physical Exam: General exam: Appears comfortable, no acute distress HEENT: Pupils are equal and reactive to light Neck: No JVD, neck is supple trachea is midline Respiratory system: Clear breath sounds bilaterally. Gastrointestinal: Abdomen is soft, non distended, non tender, bowel sounds are present CVS: Regular rate and rhythm. No murmurs, rubs or gallops Musculoskeletal: No joint or muscle tenderness Extremities: Non tender, no edema, peripheral pulses are present Neuro: Oriented, no tremors, no focal neurological deficits Skin: No rashes Results & Data Vital Signs (Past 12 Hours) Vital Signs Temp Pulse Pulse Pulse Resp BP BP 03/09/19 09:18 84 03/09/19 08:02 36.6 C 79 17 115/58 L 03/09/19 04:17 37.1 C 71 18 116/72 03/08/19 23:26 80 03/08/19 22:38 37.2 C 85 19 120/64 Pulse Ox 03/09/19 09:18 03/09/19 08:02 96 03/09/19 04:17 96 03/08/19 23:26 03/08/19 22:38 91 Laboratory Results Laboratory Results - last 24 hr 03/08/19 03/08/19 03/08/19 11:24 16:37 19:58 WBC RBC Hgb Hct MCV MCH MCHC RDW Std Deviation RDW Coeff of Nevaeh Plt Count MPV Immature Gran % (Auto) Neut % (Auto) Lymph % (Auto) [place] % (Auto) Eos % (Auto) Baso % (Auto) Immature Gran # (Auto) Neut # (Auto) Lymph # (Auto) [place] # (Auto) Eos # (Auto) Baso # (Auto) Sodium Potassium Chloride Carbon Dioxide Anion Gap BUN Creatinine Est Cr Clr Drug Dosing Est GFR ( Amer) Est GFR (Non-Af Amer) BUN/Creatinine Ratio Glucose POC Glucose 318 H* 95 148 H Calcium 03/09/19 03/09/19 03/09/19 06:33 06:33 07:44 WBC 4.57 L RBC 2.60 L Hgb 8.5 L Hct 25.5 L MCV 98.1 MCH 32.7 MCHC 33.3 RDW Std Deviation 49.5 H RDW Coeff of Nevaeh 14.1 Plt Count 143 MPV 10.2 Immature Gran % (Auto) 0.2 Neut % (Auto) 37.8 Lymph % (Auto) 51.0 [place] % (Auto) 10.3 Eos % (Auto) 0.7 Baso % (Auto) 0.0 Immature Gran # (Auto) 0.01 Neut # (Auto) 1.73 Lymph # (Auto) 2.33 [place] # (Auto) 0.47 Eos # (Auto) 0.03 Baso # (Auto) 0.00 Sodium 138 Potassium 4.8 Chloride 107 Carbon Dioxide 26 Anion Gap 5.0 BUN 50 H Creatinine 1.67 H Est Cr Clr Drug Dosing 30.9 Est GFR ( Amer) 35.8 Est GFR (Non-Af Amer) 30.9 BUN/Creatinine Ratio 29.8 H Glucose 107 H POC Glucose 121 H Calcium 8.9
[2019-03-09] MEDS ORDERED: EPOETIN ALFA 20,000 UNITS/ML VIAL SQ ONE (10:45)
--- NOTE | 2019-03-09 11:56 | Hospitalist Progress Note ---
Date of Service March 09, 2019 Assessment & Plan (1) SOB (shortness of breath): This is a 68-year-old female who has significant past medical history of ischemic cardiomyopathy with systolic CHF EF 20 to 25%, presence of AICD, IDDM, CKD stage IV, HTN, mild , HLD, anemia of chronic disease, MDD, underlying dementia who presents to [facility] ED after being hypoxic at hospital follow-up PCP visit. Presented to ER with shortness of breath and low saturation Chest x-ray reported as congestive failure/fluid overload with small bilateral pleural effusion VQ scan was low probably for pulmonary embolism Did not receive any intravenous Lasix on admission Will give a small dose of intravenous Lasix today and monitor kidney function Appreciate nephrology input and recommendation The Lasix was not given yesterday and today as because the creatinine has been going higher Clinically much better without any shortness of breath at rest Appreciate nephrology recommendation to restart Lasix 40 mg daily Creatinine is a little improved as of today We will continue 40 mg Lasix daily as an outpatient Will have a nephrology appointment within 1 to 2 weeks (2) Elevated troponin I level: Initial troponin was 0.150 and serial troponins were unremarkable for ACS Echocardiogram : LV is moderately dilated, LV systolic function is severely reduced with EF of 20 to 25%, akinesis of the anterior, anterior septal and anterior lateral myocardium consistent with the previous infarct, right ventricular systolic function is normal, left atrium is moderately dilated, right atrial size is normal, aortic valve sclerosis moderate without significant aortic stenosis, there is moderate to severe mitral regurgitation. No further cardiac study as per utility worker forge (3) Hyperkalemia: Her potassium was noted to be 5.8 on admission and is completed complicated by impaired renal function Received 10 units IV regular insulin in ED Administer 1 g calcium gluconate Hold lisinopril Potassium is normalized and renal function has been improving with creatinine 1.8 on as of 03/05 Potassium remains elevated at 5.0 Monitor PRP following Lasix therapy Lasix has been on hold for now Will monitor kidney function and evaluate the need for Lasix in a day or 2 She did not receive any Lasix yesterday and will start from today as per transitional care manager (4) Acute worsening of stage 4 chronic kidney disease: Baseline creatinine 1.8 BUN/creatinine 71 and 2.17 today with ratio 32.6 Received fluid challenge in ED, will repeat BMP at 5 PM to observe for improvement or worsening of renal function Received intravenous fluid of 500 mL in the emergency room Was given 20 of Lasix intravenously this morning consult nephrologY-input awaited Will need an appointment with transitional care manager within 1 week following discharge from the hospital (5) DM II (diabetes mellitus, type II), controlled: A1c 7.6 on 02/04 On Novolin 70/30 as outpatient Patient significantly hyperglycemic in ED 494, s/p IV regular insulin 10 units Consult glycemic pharmacist for assistance -appreciate input Consult development educator-appreciate input and recommendation (6) Chronic systolic heart failure: s/p recent hospitalization for acute on chronic CHF exacerbation Most recent echo 02/04 revealed slightly worsened EF 20 to 25%, global hypokinesis, mildly dilated LA and LV, mild left On exam she does not appear volume overloaded Continue metoprolol AICD in place Cardiology consulted We will continue intravenous Lasix of 20 mg daily Did not get any Lasix yesterday there is 03/07 Will start 40 mill grams daily from today 03/08 Denies any symptoms of fluid overload (7) Ischemic cardiomyopathy: as above no active chest pain ECG changes notable for ST depressions inferior and laterally troponin elevated 0.150, appears chronically elevated trend troponin q6h x 2 No ACS (8) AICD (automatic cardioverter/defibrillator) present: Obtain interrogation (9) GERD (gastroesophageal reflux disease): Continue famotidine (10) Anemia: H&H 8.6 and 26.6 H&H 10.6 and 31.3 at most recent discharge No signs or symptoms of active bleeding FOBT all stool Repeat H&H at 5 PM Hemoglobin remains stable at more than 8 (11) Hypertension: bp stable continue metoprolol and amlodipine hold lisinopril and lasix monitor (12) Thrombocytopenia: Plt 116, previous had been 137 (13) DVT prophylaxis: IV heparin low dose until PE/NSTEMI ruled out SCD/TEDS (14) Anxiety and depression: She was noted to be very anxious with depressed mood Seems to have some cognitive impairment We will get a psychiatric evaluation for further management of this problem Appreciate psychiatric input and recommendation Plan to wean off Paxil and start with Zoloft She will be discharged home this afternoon Subjective 03/05 The patient was seen and examined in telemetry unit She was admitted with shortness of breath and hypoxia and was noted to have some renal impairment as well She has been feeling a little bit better since admission Very anxious and may have component of depression//cognitive impairment She denies any chest pain, palpitation, shortness of breath at rest, no abdominal pain, nausea and/or vomiting 03/06 The patient was seen and examined in telemetry unit in presence of the daughter She has been feeling much better today She was evaluated by the psychiatrist and recommendation are in the chart Denies any significant shortness of breath, chest pain, abdominal pain, nausea and/or vomiting 03/07 The patient was seen and examined in the telemetry unit She has been feeling a lot better Denies any chest pain, shortness of breath, any abdominal pain, nausea and/or vomiting 03/08 The patient was seen and examined in telemetry unit She has been free of any symptoms Ambulating without any difficulty Her creatinine is noted to be higher today 03/09 The patient was seen and examined in the telemetry unit She complains to have some weakness but no more shortness of breath and/or dizziness She has been ambulating without any difficulties Review of Systems Review of Systems: All systems reviewed and are unremarkable except as noted below Constitutional: + weakness Her generalized weakness has been improving a lot Physical Exam Physical Exam: Lying in bed comfortably Constitutional: well developed, well nourished, + ill appearing and + obese Eyes: PERRL, conjunctivae normal, anicteric sclerae ENMT: external ear and nose normal, oropharynx normal Neck: trachea midline, no thyromegaly Respiratory: normal respiratory effort; no respiratory distress Auscultation: lungs clear to auscultation bilaterally Cardiovascular: Rate/Rhythm: regular rate and regular rhythm Heart Sounds: no murmur Extremities: + edema (Trace edema bilaterally) Gastrointestinal (Abdomen): Inspection/Auscultation: abdomen normal to inspection and normal bowel sounds; abdomen not distended Neurologic: moves all extremities and + focal motor deficit Psychiatric: A+Ox3, euthymic affect Results & Data Vital Signs (Past 12 Hours) Vital Signs Temp Pulse Pulse Pulse Resp BP BP 03/09/19 10:53 36.3 C L 83 18 113/56 L 03/09/19 09:18 84 03/09/19 08:02 36.6 C 79 17 115/58 L 03/09/19 04:17 37.1 C 71 18 116/72 Pulse Ox 03/09/19 10:53 97 03/09/19 09:18 03/09/19 08:02 96 03/09/19 04:17 96 Laboratory Results Short CBC 03/09/19 Range/Units 06:33 WBC 4.57 L (4.8-10.8) K/uL Hgb 8.5 L (12.0-16.0) g/dL Hct 25.5 L (37-47) % Plt Count 143 (130-400) K/uL BMP 03/09/19 06:33 Sodium 138 Potassium 4.8 Chloride 107 Carbon Dioxide 26 BUN 50 H Creatinine 1.67 H Glucose 107 H Calcium 8.9 Medications Administered Current Inpatient Medications Acetaminophen (Tylenol) 650 mg PO Q4H PRN PRN Reason: Pain or Fever Stop: 04/03/19 15:30 Amlodipine Besylate (Norvasc) 5 mg PO [facility] Stop: 04/04/19 08:59 Last Admin: 03/09/19 08:33 Dose: 5 mg Documented by: Aspirin (Ecotrin Ectab) 81 mg PO [facility] Stop: 04/04/19 08:59 Last Admin: 03/09/19 08:33 Dose: 81 mg Documented by: Dextrose (Dextrose 50%) 25 - 50 ml IV UD PRN; Protocol PRN Reason: Hypoglycemia Protocol Stop: 04/03/19 15:30 Famotidine (Pepcid) 20 mg PO [facility] Stop: 04/04/19 08:59 Last Admin: 03/09/19 08:34 Dose: 20 mg Documented by: Ferrous Sulfate (Feosol) 325 mg PO [facility] Stop: 04/04/19 08:59 Last Admin: 03/09/19 08:34 Dose: 325 mg Documented by: Furosemide (Lasix) 40 mg PO [facility] Stop: 04/07/19 12:59 Last Admin: 03/09/19 08:33 Dose: 40 mg Documented by: Gabapentin (Neurontin) 100 mg PO [facility] Stop: 04/04/19 08:59 Last Admin: 03/09/19 08:35 Dose: 100 mg Documented by: Glucagon (Glucagen) 1 mg SQ UD PRN; Protocol PRN Reason: Hypoglycemia Protocol Stop: 04/03/19 15:30 Glucose (Dex4 Glucose) 4 - 8 tabs PO UD PRN; Protocol PRN Reason: Hypoglycemia Protocol Stop: 04/03/19 15:30 Glucose (Glucose 40%) 15 - 30 gm PO UD PRN; Protocol PRN Reason: Hypoglycemia Protocol Stop: 04/03/19 15:30 Insulin Aspart (Novolog Flexpen) 0 units SC DAILY@0730 TED Stop: 04/07/19 07:29 Last Admin: 03/09/19 08:31 Dose: 14 units Documented by: Insulin Aspart (Novolog Flexpen) 0 units SC DAILY@1130,1630,2100 TED Stop: 04/06/19 16:29 Last Admin: 03/08/19 20:42 Dose: Not Given Documented by: Insulin Human NPH (Novolin N Nph) 20 units SC DAILY@0800 TED; Protocol Stop: 04/06/19 07:59 Last Admin: 03/09/19 08:32 Dose: 20 units Documented by: Insulin Human NPH (Novolin N Nph) 6 units SC HS [facility]; Protocol Stop: 04/07/19 20:59 Last Admin: 03/08/19 20:44 Dose: 6 units Documented by: Lovastatin (Mevacor) 40 mg PO [facility] Stop: 04/03/19 20:59 Last Admin: 03/08/19 20:43 Dose: 40 mg Documented by: Metoprolol Succinate (Toprol Xl) 75 mg PO BID [facility] Stop: 04/03/19 20:59 Last Admin: 03/09/19 08:35 Dose: 75 mg Documented by: Miscellaneous (Carbohydrates For Hypoglycemia) 15 - 30 gm PO UD PRN PRN Reason: Hypoglycemia Protocol Stop: 04/03/19 15:30 Last Admin: 03/07/19 20:48 Dose: 15 gm Documented by: Miscellaneous Information (Consult Glycemic Management Pharmacy) 1 ea N/A UD PRN; Protocol PRN Reason: Consult Stop: 04/03/19 15:47 Nitroglycerin (Nitrostat) 0.4 mg SL UD PRN PRN Reason: Chest Pain Stop: 04/03/19 15:30 Ondansetron HCl (Zofran) 4 mg IV Q6H PRN PRN Reason: Nausea Stop: 04/03/19 15:30 Paroxetine HCl (Paxil) 30 mg PO [facility]; Taper Stop: 03/27/19 08:59 Last Admin: 03/09/19 08:34 Dose: 30 mg Documented by: Polyethylene Glycol (Miralax Powder Packet) 17 gm PO DAILY PRN PRN Reason: Constipation Stop: 04/03/19 15:30 Sertraline HCl (Zoloft) 25 mg PO HS TED; Taper Stop: 04/26/19 20:59 Last Admin: 03/08/19 20:44 Dose: 25 mg Documented by:
--- NOTE | 2019-03-09 18:41 | Discharge Summary ---
Date of Service March 09, 2019 Admission HPI Per Admitting Provider Per admission HPI: This is a 68-year-old female who has significant past medical history of ischemic cardiomyopathy with systolic CHF EF 20 to 25%, presence of AICD, IDDM, CKD stage IV, HTN, mild , HLD, anemia of chronic disease, MDD, underlying dementia who presents to [facility] ED after being hypoxic at hospital follow-up PCP visit. Of significance patient hospitalized 02/04 to 02/11 at [facility] ED after initially being seen and treated medically for ER due to shortness of breath. She was found to have NSTEMI secondary to demand ischemia and acute on chronic systolic CHF exacerbation, questionable right pneumonia treated with IV antibiotics. She was treated with IV diuresis, creatinine peaked at 2.4 and transition to oral diuretics. Her oral metoprolol was increased to 75 mg twice daily. She was discharged to [facility] for subacute rehab discharged home on 02/27. She presented to PCP office today for hospital follow-up. Complained PCP of chest tightness and shortness of breath and was noted to be hypoxic. She was referred back to ED for further evaluation. Son and family members are at bedside. Son provides most of history as patient does have history of dementia and history is otherwise unreliable. States brought mother to his house on Saturday and she is currently living with him in an apartment attached to her garage. Noted she had been doing fine up until today when she became short of breath with minimal exertion. She was short of breath just walking into PCP office. Noted overall poor appetite for the past 3 to 4 days and decreased intake. "If you put food in front of her she will eat but hasn't been eating that well." Not following fluid restriction, but son doesn't feel she has been drinking much maybe 2-3 glasses daily. Does not weigh herself daily as she doesn't have scale. Son feels she may be dehydrated. Feels her mental status is at baseline. Has been taking lasix and insulin daily; however, other medications just picked up from pharmacy yesterday. Pt states 7 regular BM yesterday. She denies any recent f/c/s, dizziness, lightheaded, chest pain, palpitations, hemoptysis, abdominal pain or change in urination. Denies melena, hematochezia or hematuria. In ED patient was noted to be hypoxic 88% on room air and placed on supplemental O2. Initial chest x-ray concerning for volume overload with small bilateral pleural effusions and CHF. Her troponin is chronically elevated and today was 0.150, d-dimer elevated 1880, ECG revealed sinus tachycardia with inferior lateral T wave inversion - new compared to prior ECG. Electrolyte abnormalities notable for significant hyperglycemia of 494, corrected sodium 135, K5.8, BUN 71, creatinine 2.17. She did have a drop in hemoglobin to 8.6 and 26.6 from 10.6/31.3 at discharge. She received 500ml IVF and 10 units of regular insulin. Psychiatric consultation requested today to evaluate appropriateness and effectiveness of antidepressant. Per Dr. Wagner's note from today, current medical issues include initial troponin elevation but stable, echo pending, hyperkalemia, acute on chronic kidney disease, type 2 diabetes, chronic heart failure and cardiology has been consulted, GERD, anemia, hypertension with stable BP, thrombocytopenia. She is noted to appear anxious and depressed precipitating psychiatric consultation. On psychiatric interview, patient tear ful with liaison nurse and reports depression started after of her second after 39 years of marriage in 2014. She has been taking Paxil since that time. She denies that she has been suicidal but has had thoughts about being ready for . She is tired of feeling sick. She describes diminished appetite but tries to eat because she knows she has to. Sleep fair. She denied increased anxiety. Denies hallucinations. She does acknowledge sometimes talking to her however she clarifies that she is speaking to the memory of him and does not perceive him to be present. She complains of feeling overwhelmed by loss of control which is precipitating what might be considered very mild paranoia where she perceives the people think that she is doing things wrong or that she is incapable. She acknowledges some confusion and memory loss. Presently I am uncertain of her functional baseline. She appears to be living in a converted garage on her son's property. She expresses desire to get off of the Paxil perceiving that it makes her feel foggy and also reminds her of the loss of her . She scores a 3 on mini cog assessment today with intact clock, good visual-spatial performance, but missing 2 points on word recall. Admission Exam Per Admitting Provider Physical Exam: Constitutional: WD/WN, F, unkempt, appears older than state age, vitals as above, NAD, sitting up in bed, very pleasant, conversing easily but unreliable historian Head: Normocephalic, Atraumatic Eyes: PERRL, conjunctivae normal, anicteric sclerae ENMT: external ear and nose normal, oropharynx with dry mucous membranes Neck: trachea midline, no thyromegaly normal visual inspection Respiratory: normal respiratory effort, lungs clear to auscultation, no wheeze, rales, rhonchi. Normal insp/exp effort, no accessory muscle use on O2 via NC Cardiovascular: Tachycardic rate, regular rhythm, no murmur, no edema Vessels: no JVD or carotid bruit Chest: normal inspection of chest Abdomen: normal bowel sounds, soft, nontender, mild distension, no hepatosplenomegaly Musculoskeletal: no cyanosis or clubbing, extremities motor strength 5/5 Skin: no rashes, minor skin excoriations L anterior thigh, back and anterior chest, warm and dry mild turgor Neurologic: PERRL, EOMI, accommodation nl, no face palsy, no dysarthria CN's II-XI intact bilaterally and moves all extremities Psychiatric: A+O to self, place and surrounding, euthymic affect Lymphatic: no cervical or axillary lymphadenopathy : deferred Principal Diagnosis Acute on chronic systolic heart failure, acute on chronic renal failure, diabetes type 2 Discharge Exam Constitutional well developed, well nourished, + ill appearing and + obese Eyes PERRL, conjunctivae normal, anicteric sclerae ENMT external ear and nose normal, oropharynx normal Neck trachea midline, no thyromegaly Respiratory normal respiratory effort; no respiratory distress Auscultation: lungs clear to auscultation bilaterally Cardiovascular Rate/Rhythm: regular rate and regular rhythm Heart Sounds: no murmur Extremities: + edema (Trace edema bilaterally) Gastrointestinal (Abdomen) Inspection/Auscultation: abdomen normal to inspection and normal bowel sounds; abdomen not distended Neurologic moves all extremities and + focal motor deficit Psychiatric A+Ox3, euthymic affect Orientation: alert Affect: + depressed affect and + anxious affect Insight: + limited insight Judgement: + limited judgement Discharge Data Allergies Allergy/AdvReac Type Severity Reaction Status Date / Time No Known Allergies Allergy Unverified 03/04/19 13:16 Consultations 03/04/19 13:51 ED Decision to Admit Stat 03/04/19 14:04 Consult Cardiology Routine Consult Nephrology Routine 03/04/19 15:31 Consult Case Management - Discharge Planning Routine 03/05/19 10:41 Consult Psychiatry Routine Ordered Studies 03/04/19 12:44 US venous doppler LE BI Stat Hospital Course (1) SOB (shortness of breath): This is a 68-year-old female who has significant past medical history of ischemic cardiomyopathy with systolic CHF EF 20 to 25%, presence of AICD, IDDM, CKD stage IV, HTN, mild , HLD, anemia of chronic disease, MDD, underlying dementia who presents to [facility] ED after being hypoxic at hospital follow-up PCP visit. Presented to ER with shortness of breath and low saturation Chest x-ray reported as congestive failure/fluid overload with small bilateral pleural effusion VQ scan was low probably for pulmonary embolism Did not receive any intravenous Lasix on admission Will give a small dose of intravenous Lasix today and monitor kidney function Appreciate nephrology input and recommendation The Lasix was not given yesterday and today as because the creatinine has been going higher Clinically much better without any shortness of breath at rest Appreciate nephrology recommendation to restart Lasix 40 mg daily Creatinine is a little improved as of today We will continue 40 mg Lasix daily as an outpatient Will have a nephrology appointment within 1 to 2 weeks (2) Elevated troponin I level: Initial troponin was 0.150 and serial troponins were unremarkable for ACS Echocardiogram : LV is moderately dilated, LV systolic function is severely reduced with EF of 20 to 25%, akinesis of the anterior, anterior septal and anterior lateral myocardium consistent with the previous infarct, right ventricular systolic function is normal, left atrium is moderately dilated, right atrial size is normal, aortic valve sclerosis moderate without significant aortic stenosis, there is moderate to severe mitral regurgitation. No further cardiac study as per ballistics expert (3) Hyperkalemia: Her potassium was noted to be 5.8 on admission and is completed complicated by impaired renal function Received 10 units IV regular insulin in ED Administer 1 g calcium gluconate Hold lisinopril Potassium is normalized and renal function has been improving with creatinine 1.8 on as of 03/05 Potassium remains elevated at 5.0 Monitor PRP following Lasix therapy Lasix has been on hold for now Will monitor kidney function and evaluate the need for Lasix in a day or 2 She did not receive any Lasix yesterday and will start from today as per certified addiction counselor (4) Acute worsening of stage 4 chronic kidney disease: Baseline creatinine 1.8 BUN/creatinine 71 and 2.17 today with ratio 32.6 Received fluid challenge in ED, will repeat BMP at 5 PM to observe for improvement or worsening of renal function Received intravenous fluid of 500 mL in the emergency room Was given 20 of Lasix intravenously this morning consult nephrologY-input awaited Will need an appointment with certified addiction counselor within 1 week following discharge from the hospital (5) DM II (diabetes mellitus, type II), controlled: A1c 7.6 on 02/04 On Novolin 70/30 as outpatient Patient significantly hyperglycemic in ED 494, s/p IV regular insulin 10 units Consult glycemic pharmacist for assistance -appreciate input Consult assistant health educator-appreciate input and recommendation (6) Chronic systolic heart failure: s/p recent hospitalization for acute on chronic CHF exacerbation Most recent echo 02/04 revealed slightly worsened EF 20 to 25%, global hypokinesis, mildly dilated LA and LV, mild left On exam she does not appear volume overloaded Continue metoprolol AICD in place Cardiology consulted We will continue intravenous Lasix of 20 mg daily Did not get any Lasix yesterday there is 03/07 Will start 40 mill grams daily from today 03/08 Denies any symptoms of fluid overload (7) Ischemic cardiomyopathy: as above no active chest pain ECG changes notable for ST depressions inferior and laterally troponin elevated 0.150, appears chronically elevated trend troponin q6h x 2 No ACS (8) AICD (automatic cardioverter/defibrillator) present: Obtain interrogation (9) GERD (gastroesophageal reflux disease): Continue famotidine (10) Anemia: H&H 8.6 and 26.6 H&H 10.6 and 31.3 at most recent discharge No signs or symptoms of active bleeding FOBT all stool Repeat H&H at 5 PM Hemoglobin remains stable at more than 8 (11) Hypertension: bp stable continue metoprolol and amlodipine hold lisinopril and lasix monitor (12) Thrombocytopenia: Plt 116, previous had been 137 (13) DVT prophylaxis: IV heparin low dose until PE/NSTEMI ruled out SCD/TEDS (14) Anxiety and depression: She was noted to be very anxious with depressed mood Seems to have some cognitive impairment We will get a psychiatric evaluation for further management of this problem Appreciate psychiatric input and recommendation Plan to wean off Paxil and start with Zoloft She will be discharged home this afternoon Total Time Total Time Spent Total Time Spent (In Minutes): 40 minutes Total Time Includes: Examination of the Patient, Discharge Planning, Medication Reconciliation and Communication With Other Providers Discharge Plan Discharge Items Patient Disposition: Home - Home Health Services Reason For Visit: ACUTE RESPIRATORY FAILURE WITH HYPOXIA Discharge Diagnosis: Acute on chronic systolic heart failure, acute on chronic renal failure, diabetes type 2 Condition on Discharge: Fair Activity: Resume your previous activity Non-emergency contact: Primary Care Provider Call non-emergency contact if: you have any medication questions and your symptoms worsen Follow-up/Referrals: PCP,BILLY [Primary Care Provider] - 03/13/19 10:30 am (This is your nephrology appointment with Dr.Dawn Pineda. Please make an appointment with your primary care physician within 1 week and keep regular appointment with the ballistics expert.) Diet: Carb Consistent or DM2, Heart Healthy and Low Sodium (2gm) Fluids: 1200ml (5 cups) Addtl Attending Provider Instructions: Please take precaution to avoid falls. Pending Studies at Discharge: No Stand-Alone Forms: My [facility] idio, Smoking Cessation Medications and DC Order Prescriptions: New furosemide 40 mg Tablet 40 mg PO QAM Qty: 30 RF: 0 sertraline 50 mg Tablet 25 mg PO UD Qty: 60 RF: 0 Continued lovastatin 40 mg tablet 40 mg PO HS RF: 0 Novolin 70/30 U-100 Insulin 100 unit/mL (70-30) suspension See Rx Instructions .ROUTE .COMPLEX RF: 0 amlodipine 5 mg tablet 5 mg PO QAM RF: 0 famotidine 20 mg tablet 20 mg PO QAM RF: 0 benzonatate 100 mg capsule 100 mg PO TID PRN (Reason: Cough) RF: 0 ferrous sulfate 325 mg (65 mg iron) tablet 325 mg PO QAM RF: 0 gabapentin 100 mg capsule 100 mg PO QAM RF: 0 ergocalciferol (vitamin D2) 50,000 unit capsule 50,000 unit PO WK RF: 0 aspirin [Ecotrin Low Strength] 81 mg Tablet,Delayed Release (Dr/Ec) 81 mg PO QAM Qty: 30 RF: 0 nitroglycerin [Nitrostat] 0.4 mg Tablet, Sublingual 0.4 mg sublingual UD PRN (Reason: chest pain) Qty: 5 RF: 0 acetaminophen 325 mg Tablet 650 mg PO Q4H PRN (Reason: Fever/pain) RF: 0 miconazole nitrate 2 % Cream 1 applic TOPICAL BID RF: 0 magnesium hydroxide [Milk of Magnesia] 400 mg/5 mL Suspension 30 ml PO DAILY PRN (Reason: Constipation) RF: 0 bisacodyl [Dulcolax (bisacodyl)] 10 mg Suppository 10 mg IA DAILY PRN (Reason: Constipation) RF: 0 Fleet Enema 19-7 gram/118 mL Enema 118 ml IA DAILY PRN (Reason: Constipation) RF: 0 metoprolol succinate 50 mg tablet extended release 24 hr 75 mg PO BID RF: 0 Changed furosemide 20 mg tablet 40 mg PO QAM Qty: 0 RF: 0 Discontinued lisinopril 5 mg tablet 5 mg PO QAM RF: 0 paroxetine HCl 40 mg tablet 40 mg PO QAM RF: 0 Discharge Orders: Discharge Order (Routine); Ordered 03/09/19 Ordered By: Ercia Montesinos/Other Patient Handouts: Sertraline Hydrochloride Oral tablet, Furosemide Oral tablet Admission Data Admit Date/Time: 03/05/19 13:29 Attending Provider: Erica Wagner Admit Provider: Ruiz Penn Primary Care Provider: PCP,NO Other Providers: Christiano Landa ; Rob Spaulding ; Ruiz Penn ; Ezio Massey Other Interventions: Discharge Summary Assessment (RN) Last Done: 03/09/19 15:34
[2019-03-09] MEDS ORDERED: INSULIN HUMAN NPH SC SCH (21:00)
== END 2019-03-09 18:34 | disposition home health service (06) | DRG 291 ==
LOC: 2S 11:34 → ED 11:34 → SUATTDRO 13:58 → 2S 15:02

== ENCOUNTER 2021-12-26 22:19 | Inpatient (IN) ==
--- NOTE | 2021-12-26 23:30 | Emergency Department Note ---
Impression & Plan SOB (shortness of breath), Thrombocytopenia, Weakness, Pancreatitis, Acute UTI, Falls frequently ED Provider Note Provider: Jh Willson MD DATE OF SERVICE: 12/26/2021 CHIEF COMPLAINT: Weak, short of breath, falls HISTORY OF PRESENT ILLNESS: Patient is a 71-year-old female history of CHF, CKD, cardiomyopathy with AICD, aortic stenosis, and diabetes presenting here today with her son. Patient states over the last several days she is been very weak and just achy all over. Patient evidently been feeling a bit more short of breath and states that she got weak and went to the ground 3 times today. Son describes a very small slow events to the ground and no significant falls or trauma or strikes to the head. Patient denies significant headache right now. Reports some mid back discomfort and mid abdominal discomfort. No nausea or vomiting reported. Denies chest pain to me. Uses Lasix 3 times a week including a dose today and no significant leg swelling noted. A mildly produ ctive cough reported. Patient now very weak and not able to walk well. REVIEW OF SYSTEMS: A total of 10 review of systems was obtained and negative except as stated above in the HPI. PAST MEDICAL HISTORY: As noted above MEDICATIONS: Reviewed home medications SOCIAL HISTORY:non-smoker, lives above garage of son PHYSICAL EXAM: GENERAL: alert and oriented in no acute distress on stretcher Head: normocephalic and atraumatic EYES: No injection, discharge or icterus. NECK: Trachea midline. Supple. ENT: Mucous membranes pink and moist. LUNGS: Airway patent. No retractions. Breath sounds clear HEART: Tachycardic rate and rhythm. No chest wall tenderness ABDOMEN: Soft minimal diffuse abdominal discomfort. SKIN: Acyanotic, warm, dry, with scattered contusion on back EXTREMITIES: Without deformity or tenderness with mild trace lower extremity edema. NEUROLOGICAL: No focal deficits. No aphasia. No facial droop or slurred speech. Able to transfer from wheelchair to bed with significant assist EK bpm sinus tachycardia without PVC or PAC. Significant T wave inversions anterior laterally with a QTC of 473. No acute ST segment elevation with some questionable inferior lateral ST depression.Data previous from March 06, 2019 but a more prominent T wave inversions and more tachycardic over some similar distribution of T wave inversions compared to previous. CONTINUOUS CARDIAC MONITORING: was ordered and showed a heart rate of bpm in Patient's laboratory studies and imaging reviewed. Differential includes Infection, dehydration, metabolic abnormality, hypo/hy perglycemia, electrolyte disturbance, anemia, hypoxia, cardiac sources, intracerebral event, toxicologic, neurologic, as well as other pathologies. IMPRESSION/MEDICAL DECISION MAKING: Patient endorses some diffuse myalgias but there does not sound like his very strong traumatic history to any of this. Reports some shortness of breath and abdominal mild back discomfort. Not having acute neurological deficits. Minimal swelling of the lower extremities. X-ray and basic labs will be obtained. COVID test sent. Not having significant neurological deficits with any focality and doubt acute CVA. No significant trauma history reported and doubt acute intracranial hemorrhage however given her weakness and significance of some diffuse contusions on her back and body will complete a CT of the head. Doubt cervical spine injury based on Nexus criteria. A fair amount of ambulatory dysfunction noted with transferring here. 1 view chest x-ray per my interpretation:, AICD in place. No evidence of pneumothorax or pneumonia. No free air under the diaphragm. No significant pleural effusions or severe pulmonary edema noted. Blood work here with minimal troponin elevation (hx of chronic troponin and doubt ACS with this) but some BNP elevation although clinically does not look that fluid overloaded. Urinalysis appears to show evidence of urine infection. Mild anemia but also leukopenia and worsened thrombocytopenia is noted today on blood work. Stable renal dysfunction is noted. Lipase is elevated possibly questioning a developing pancreatitis. Negative COVID. Given a small mount of fentanyl for pain and ceftriaxone for antibiotic coverage. Discussed with her continued care at the hospital and the hospitalist was contacted. CT reports as below noted. DIAGNOSIS: Weakness, shortness of breath, Acute UTI, thrombocytopenia, pancreatitis DISPOSITION: Hospitalist will evaluate Patient was agreeable with this plan. Preliminary Findings Only See Final Report For Complete Findings CT HEAD: No ICH, mass effect or edema. No evidence of acute cortical stroke. Periventricular small vessel ischemic change. Visualized sinuses and mastoid air cells are clear. Radiologist: Gerber Soria MD Study ready at 01:28 and initial results transmitted at 01:39 Preliminary Findings Only See Final Report For Complete Findings CT ABDOMEN & PELVIS Without Contrast: No solid organ laceration The small and large bowel are normal Urinary bladder is equivocally thick-walled which may reflect cystitis Age indeterminate T12 anteriorly wedged compression fracture deformity appears old Radiologist: Gerber Soria MD Study ready at 01:28 and initial results transmitted at 01:43 Past Med/Surg History Medical History Anemia Anxiety and depression Aortic stenosis Chronic renal disease, stage IV Chronic systolic heart failure Dementia DM II (diabetes mellitus, type II), controlled GERD (gastroesophageal reflux disease) Hyperkalemia Hyperlipidemia LDL goal <70 Hypertension Moderate mitral regurgitation NSTEMI (non-ST elevated myocardial infarction) 2014?--follows with Dr. Charles Sensorineural hearing loss (SNHL) of both ears Surgical History AICD (automatic cardioverter/defibrillator) present 2017--meditronic @ [facility] History of appendectomy History of bilateral cataract extraction History of open reduction and internal fixation (ORIF) procedure ankle fx---hardware in place History of tubal ligation Status post cholecystectomy Family History Mother Family history of diabetes mellitus Brother Family history of diabetes mellitus Sister Family history of diabetes mellitus Other No family history of adverse response to anesthesia Social History Smoking Status: Never smoker Second Hand Exposure: No; Hx Alcohol Use: No Hx Substance Use: No Preferred Language: Greenlandic Communication Ability: Effective L Tacker Required: No Beliefs That Will Affect Care: None marital status: / Current Living Situation: Family Current Living Situation Comment: Lives with daughter in apartment above son Feels Safe at Home: Yes Assistive Devices: Cane, Walker and Wheelchair Allergies Allergies Allergy/AdvReac Type Severity Reaction Status Date / Time lisinopril Allergy Cough Verified 12/27/21 00:01 Home Meds Home Medications Medication Instructions Recorded Confirmed gabapentin 100 mg capsule 100 mg PO QAM 02/04/19 12/27/21 acetaminophen 325 mg tablet 650 mg PO Q4H PRN Fever/pain 03/04/19 12/27/21 metoprolol succinate 50 mg 50 mg PO BID 03/04/19 12/27/21 tablet,extended release 24 hr insulin glargine 100 unit/mL (3 16 unit subcut HS 09/08/19 12/27/21 mL) subcutaneous pen (Basaglar KwikPen U-100 Insulin) sertraline 100 mg tablet 150 mg PO HS 09/08/19 12/27/21 liraglutide 0.6 mg/0.1 mL (18 mg/3 1.8 mg subcut HS 12/26/21 12/27/21 mL) subcutaneous pen injector (Victoza 3-Jaime) furosemide 40 mg tablet 40 mg PO 3XWK 12/27/21 12/27/21 Previous Rx's Medication Instructions Recorded aspirin 81 mg tablet,delayed 81 mg PO QAM #30 tabs 02/11/19 release (Ecotrin Low Strength) nitroglycerin 0.4 mg sublingual 0.4 mg sublingual UD PRN chest 02/11/19 tablet (Nitrostat) pain #5 tabs Results & Data (ED) Vital Signs Vital Signs - 24 hr 12/26/21 22:29 12/27/21 00:22 12/27/21 00:22 Temperature 36.4 C L Temperature Source Temporal Artery Scan Pulse Rate 103 H Pulse Rate [Finger] Respiratory Rate 20 Respiratory Effort / Characteristics Non-Labored Respiratory Depth Normal Respiratory Pattern Regular Blood Pressure 128/67 Blood Pressure [Right Arm] Blood Pressure Mean 87 Blood Pressure Mean [Right Arm] Pulse Oximetry 98 Oxygen Delivery Method Room Air Room Air Sepsis Recent Fever Within 48 Hours No Sepsis New/Unexplained Change in Mental Status No Sepsis Action Taken by Nursing No Action Required 12/27/21 00:22 12/27/21 00:22 Temperature Temperature Source Pulse Rate 105 H Pulse Rate [Finger] 109 H Respiratory Rate 20 20 Respiratory Effort / Characteristics Respiratory Depth Respiratory Pattern Blood Pressure Blood Pressure [Right Arm] 108/67 Blood Pressure Mean Blood Pressure Mean [Right Arm] 80 Pulse Oximetry 95 97 Oxygen Delivery Method Sepsis Recent Fever Within 48 Hours Sepsis New/Unexplained Change in Mental Status Sepsis Action Taken by Nursing Laboratory Data Result diagrams: 12/27/21 00:00 12/27/21 00:00 Lab Results 12/27/21 12/27/21 12/27/21 Range/Units 00:00 00:00 00:00 WBC 2.50 L (4.8-10.8) K/ul RBC 3.13 L (3.93-5.22) M/uL Hgb 10.1 L (12.0-16.0) g/dl Hct 29.9 L (34.1-44.9) % MCV 95.5 (80.0-100.0) fL MCH 32.3 (25.0-34.0) pg MCHC 33.8 (32.0-36.0) g/dL RDW Std Deviation 46.1 (36.4-46.3) fL RDW Coeff of Nevaeh 13.2 (11.5-14.5) % Plt Count 63 L (130-400) K/uL MPV 11.0 (9.4-12.3) fL Immature Gran % (Auto) 1.2 % Neut % (Auto) 56.4 % Lymph % (Auto) 26.0 % Morrill % (Auto) 16.4 % Eos % (Auto) 0.0 % Baso % (Auto) 0.0 % Neut # (Auto) 1.41 (1.4-6.5) K/uL Lymph # (Auto) 0.65 L (1.2-3.4) K/uL Morrill # (Auto) 0.41 (0.24-0.82) K/uL Eos # (Auto) 0.00 (0-0.50) K/uL Baso # (Auto) 0.00 (0-0.2) K/uL Immature Gran # (Auto) 0.03 H (0.00-0.02) K/uL Platelet Estimate Decreased L (Normal) PT 12.3 H (9.0-12.0) Seconds INR 1.2 H (0.9-1.1) APTT 30.0 (21.0-31.0) Seconds PTT Ratio 1.1 Sodium 131 L (136-145) mmol/L Potassium 4.5 (3.5-5.1) mmol/L Chloride 97 L (98-107) mmol/L Carbon Dioxide 25 (21-32) mmol/L Anion Gap 9 (3-11) BUN 78 H (6-23) mg/dl Creatinine 1.93 H (0.6-1.2) mg/dl Est Cr Clr Drug Dosing 23.7 ml/min Est GFR ( Amer) 29.4 ml/min Est GFR (Non-Af Amer) 25.4 ml/min BUN/Creatinine Ratio 40.4 H (10-20) Glucose 244 H (70-99(Fasting)) mg/dl Calcium 9.1 (8.5-10.1) mg/dl Magnesium 2.2 (1.7-2.4) mg/dl Total Bilirubin 0.4 (0.2-1.0) mg/dl AST 39 (13-39) U/L ALT 36 (7-52) U/L Alkaline Phosphatase 51 (34-104) U/L Total Creatine Kinase 49 (26-192) U/L Troponin I High Sens 19.1 H (0-14) pg/ml B-Natriuretic Peptide (0-100) pg/ml Total Protein 8.2 (6.0-8.3) gm/dl Albumin 4.4 (3.4-5.0) gm/dl Globulin 3.8 (2.5-4.0) gm/dl Albumin/Globulin Ratio 1.2 (0.9-2) Lipase 381 H (11-82) U/L Urine Color Urine Appearance (Clear) Urine pH (4.5-7.5) Ur Specific [place] (1.000-1.030) Urine Protein (Negative) Urine Glucose (UA) (Negative) Urine Ketones (Negative) Urine Blood (Negative) Urine Nitrite (Negative) Urine Bilirubin (Negative) Urine Urobilinogen (Negative) Ur Leukocyte Esterase (Negative) Urine WBC (Auto) (0-5) /hpf Urine RBC (Auto) (0-4) /hpf U Hyaline Cast (Auto) (0-5) /lpf U Epithel Cells (Auto) (0-5) /lpf Urine Bacteria (Auto) (Negative) SARS-CoV-2, RNA, NAAT (NEGATIVE) 12/27/21 12/27/21 12/27/21 Range/Units 00:00 00:27 00:27 WBC (4.8-10.8) K/ul RBC (3.93-5.22) M/uL Hgb (12.0-16.0) g/dl Hct (34.1-44.9) % MCV (80.0-100.0) fL MCH (25.0-34.0) pg MCHC (32.0-36.0) g/dL RDW Std Deviation (36.4-46.3) fL RDW Coeff of Nevaeh (11.5-14.5) % Plt Count (130-400) K/uL MPV (9.4-12.3) fL Immature Gran % (Auto) % Neut % (Auto) % Lymph % (Auto) % Morrill % (Auto) % Eos % (Auto) % Baso % (Auto) % Neut # (Auto) (1.4-6.5) K/uL Lymph # (Auto) (1.2-3.4) K/uL Morrill # (Auto) (0.24-0.82) K/uL Eos # (Auto) (0-0.50) K/uL Baso # (Auto) (0-0.2) K/uL Immature Gran # (Auto) (0.00-0.02) K/uL Platelet Estimate (Normal) PT (9.0-12.0) Seconds INR (0.9-1.1) APTT (21.0-31.0) Seconds PTT Ratio Sodium (136-145) mmol/L Potassium (3.5-5.1) mmol/L Chloride (98-107) mmol/L Carbon Dioxide (21-32) mmol/L Anion Gap (3-11) BUN (6-23) mg/dl Creatinine (0.6-1.2) mg/dl Est Cr Clr Drug Dosing ml/min Est GFR ( Amer) ml/min Est GFR (Non-Af Amer) ml/min BUN/Creatinine Ratio (10-20) Glucose (70-99(Fasting)) mg/dl Calcium (8.5-10.1) mg/dl Magnesium (1.7-2.4) mg/dl Total Bilirubin (0.2-1.0) mg/dl AST (13-39) U/L ALT (7-52) U/L Alkaline Phosphatase (34-104) U/L Total Creatine Kinase (26-192) U/L Troponin I High Sens (0-14) pg/ml B-Natriuretic Peptide 781 H (0-100) pg/ml Total Protein (6.0-8.3) gm/dl Albumin (3.4-5.0) gm/dl Globulin (2.5-4.0) gm/dl Albumin/Globulin Ratio (0.9-2) Lipase (11-82) U/L Urine Color Yellow Urine Appearance Clear (Clear) Urine pH 5.0 (4.5-7.5) Ur Specific [place] 1.011 (1.000-1.030) Urine Protein Trace H (Negative) Urine Glucose (UA) Negative (Negative) Urine Ketones Negative (Negative) Urine Blood Trace H (Negative) Urine Nitrite Negative (Negative) Urine Bilirubin Negative (Negative) Urine Urobilinogen Negative (Negative) Ur Leukocyte Esterase 3+ H (Negative) Urine WBC (Auto) >30 H (0-5) /hpf Urine RBC (Auto) 0-4 (0-4) /hpf U Hyaline Cast (Auto) 1-5 (0-5) /lpf U Epithel Cells (Auto) 0-5 (0-5) /lpf Urine Bacteria (Auto) 4+ H (Negative) SARS-CoV-2, RNA, NAAT NEGATIVE (NEGATIVE) Administered Medications Ceftriaxone Sodium (Rocephin) 2,000 mg in 70 mls @ 140 mls/hr IV NOW STA Stop: 12/27/21 01:48 Last Admin: 12/27/21 01:32 Dose: 140 mls/hr Documented By: DURAN Discontinued Medications Fentanyl Citrate (Fentanyl Citrate 100 Mcg/2 Ml Vial) 25 mcg IV NOW STA Stop: 12/27/21 01:20 Last Admin: 12/27/21 01:32 Dose: 25 mcg Documented By: DURAN Discharge Plan Visit Data Chief Complaint: Shortness of Breath/Dyspnea Stated Complaint: SOB ED Provider: Jh Willson Discharge Problem: SOB (shortness of breath), Thrombocytopenia, Weakness, Pancreatitis, Acute UTI, Falls frequently Patient Disposition: Being Evaluated by Hospitalist Forms Stand Alone Forms: My [facility] Prescriptions Prescriptions: No Action sertraline 100 mg Tablet 150 mg PO HS insulin glargine [Basaglar KwikPen U-100 Insulin] 100 unit/mL (3 mL) Insulin Pen 16 unit SUBCUT HS gabapentin 100 mg capsule 100 mg PO QAM aspirin [Ecotrin Low Strength] 81 mg Tablet,Delayed Release (Dr/Ec) 81 mg PO QAM Qty: 30 0RF nitroglycerin [Nitrostat] 0.4 mg Tablet, Sublingual 0.4 mg sublingual UD PRN (Reason: chest pain) Qty: 5 0RF acetaminophen 325 mg Tablet 650 mg PO Q4H PRN (Reason: Fever/pain) metoprolol succinate 50 mg tablet extended release 24 hr 50 mg PO BID Victoza 3-Jaime 0.6 mg/0.1 mL (18 mg/3 mL) pen injector 1.8 mg SUBCUT HS furosemide 40 mg tablet 40 mg PO 3XWK Rx Instructions: take in morning of saturday,saturday,fridays Referrals Referrals: Melissa Tovar MD [Primary Care Provider] - : Pancreatitis Qualifiers: Chronicity: acute Pancreatitis type: unspecified pancreatitis type Acute pancreatitis complication: unspecified Qualified Code(s): K85.90 - Acute pancreatitis without necrosis or infection, unspecified
[2021-12-27 00:41] LABS: INR 1.2 (0.9-1.1); Partial Thromboplastin Ratio 1.1; Prothrombin Time 12.3 Seconds (9.0-12.0)
[2021-12-27 00:48] LABS: Troponin I High Sensitivity 19.1 pg/ml (0-14)
[2021-12-27 00:50] LABS: Albumin Globulin Ratio 1.2 (0.9-2); Albumin Level 4.4 gm/dl (3.4-5.0); BUN Creatinine Ratio 40.4 (10-20); Bilirubin,Total 0.4 mg/dl (0.2-1.0); Calcium 9.1 mg/dl (8.5-10.1); Creatinine Clr Calc Pharmacy 23.7 ml/min; Est GFR (African American) 29.4 ml/min; Est GFR (Non-African American) 25.4 ml/min; Globulin 3.8 gm/dl (2.5-4.0); Magnesium 2.2 mg/dl (1.7-2.4); Potassium 4.5 mmol/L (3.5-5.1); Total Protein 8.2 gm/dl (6.0-8.3)
[2021-12-27 00:58] LABS: Appearance Urine Clear (Clear); Bacteria Urine Automated 4+ (Negative); Bilirubin Urine Negative (Negative); Blood Urine Trace (Negative); Color Urine Yellow; Epithelial Cell Urine Auto 0-5 /lpf (0-5); Glucose Urine UA Negative (Negative); Ketones Urine Negative (Negative); Leukocyte Esterase Urine 3+ (Negative); Nitrite Urine Negative (Negative); Protein Urine Trace (Negative); RBC Urine Automated 0-4 /hpf (0-4); Specific Gravity Urine 1.011 (1.000-1.030); Urobilinogen Urine Negative (Negative); WBC Urine Automated >30 /hpf (0-5)
[2021-12-27 00:59] LABS: Hematocrit (blood only) 29.9 % (34.1-44.9); Hemoglobin 10.1 g/dl (12.0-16.0); Immature Granulocytes # (auto) 0.03 K/uL (0.00-0.02); Immature Granulocytes % (auto) 1.2 %; Lymphocytes # (auto) 0.65 K/uL (1.2-3.4); Mean Corpuscular Hemoglobin 32.3 pg (25.0-34.0); Mean Corpuscular Hgb Conc 33.8 g/dL (32.0-36.0); Mean Corpuscular Volume 95.5 fL (80.0-100.0); Monocytes # (auto) 0.41 K/uL (0.24-0.82); Monocytes % (auto) 16.4 %; Neutrophils # (auto) 1.41 K/uL (1.4-6.5); Neutrophils % (auto) 56.4 %; Platelet Count 63 K/uL (130-400); Platelet Estimate Decreased (Normal); RDW Coefficient of Variation 13.2 % (11.5-14.5); RDW Standard Deviation 46.1 fL (36.4-46.3); Red Blood Count 3.13 M/uL (3.93-5.22)
[2021-12-27] MEDS ORDERED: cefTRIAXone SODIUM 2,000 MG/70 ML BAG IV STA (01:19)
[2021-12-27] MEDS ORDERED: fentaNYL citrate 100 MCG/2 ML VIAL IV STA (01:19)
[2021-12-27] MEDS ORDERED: HALOPERIDOL LACTATE 5 MG/ML 1 ML VIAL ONE (02:59)
[2021-12-27] MEDS ORDERED: HALOPERIDOL LACTATE 5 MG/ML 1 ML VIAL IM STA (03:31)
[2021-12-27] MEDS ORDERED: SODIUM CHLORIDE 0.45 % 500 ML IV SCH (05:42)
[2021-12-27] MEDS ORDERED: NITROGLYCERIN SL 0.4 MG/TAB TAB SL PRN ×2 (05:42)
[2021-12-27] MEDS ORDERED: CARBOHYDRATES FOR HYPOGLYCEMIA PO PRN (06:00)
[2021-12-27] MEDS ORDERED: GLUCAGON FOR INJ 1 MG VIAL IM PRN (06:00)
[2021-12-27] MEDS ORDERED: DEXTROSE 50% 50 ML SYRINGE IV PRN (06:00)
[2021-12-27] MEDS ORDERED: GLUCOSE 10 TAB/TUBE PO PRN (06:00)
[2021-12-27] MEDS ORDERED: GLUCOSE 40% GEL 15 GM TUBE PO PRN (06:00)
--- NOTE | 2021-12-27 06:07 | History and Physical Report ---
DATE OF ADMISSION: 12/27/2021. CHIEF COMPLAINT: Frequent falls, confusion. HISTORY OF PRESENT ILLNESS: This is a 71-year-old female with past medical history significant for type 2 diabetes, chronic kidney disease, stage IV; hyperlipidemia, hyperparathyroidism, nocturnal hypoxia, chronic systolic CHF, hypertension, non-rheumatic mitral regurgitation, aortic stenosis, status post AICD, status post AR, GERD, slow transit constipation, mild dementia, history of tension headache, anemia of chronic kidney disease, thrombocytopenia, general anxiety disorder, recurrent major depression, in remission, presents with falls. The patient lives in a garage of her son, who lives in an apartment . Seems has cameras in garage and son saw that she fell, she fell slowly, seems to be 3 times. She also has a bruise on her extremities and was brought in here and found to have UTI. The patient initially was pleasant, was answering questions appropriately. No headache. No blurred visions, no runny nose, no sore throat. Occasional cough. Denies any chest pain currently. Denies any shortness of breath currently. No nausea, no abdominal pain. Denies any burning micturition. She states she is somewhat constipated. No swelling in the legs. Ambulates with a walker. Later, the patient wanted to micturate and nursing staff has worried that she will fall down, she refused to use a bedpan and she was very adamant and finally have to use bed side commode.Then she was adamant that she wanted to read the bible , Thinks it in her shelf.She seemed agitated and confused. Hemodynamically stable. ALLERGIES: TO LISINOPRIL. PAST MEDICAL HISTORY: As mentioned above. PAST SURGICAL HISTORY: Colonoscopy, EGD, ICD placement. MEDICATIONS: The patient is on Tylenol 650 mg p.o. q.4 hours p.r.n., aspirin 81 mg p.o. daily, Lasix 40 mg 3 times a week, gabapentin 100 mg p.o. a.m., Lantus 15 units subcutaneous at bedtime, Victoza 1.8 mg subcutaneous at bedtime, metoprolol succinate 50 mg p.o. b.i.d., Crestor 20 mg p.o. daily, nitroglycerin 0.4 mg sublingual p.r.n.,zoloft 150 mg p.o. at bedtime. FAMILY HISTORY: Significant for maternal aunt has breast cancer; brother has diabetes; mother has diabetes, end-stage renal disease; brother had HIV. SOCIAL HISTORY: , currently lives in a garage of her son. No smoking, no alcohol, no drug use. REVIEW OF SYSTEMS: As per HPI. Could not get complete review of systems, as the patient is somewhat confused. PHYSICAL EXAMINATION: GENERAL: The patient is alert and awake, somewhat confused, mild agitation. VITAL SIGNS: Temperature 36.4, pulse 108, respiratory rate 19, blood pressure 128/70, oxygen 100% on room air. HEENT: Pupils equal, round and reactive to light. Oral mucosa dry. NECK: No JVD or neck masses. CARDIOVASCULAR: S1 and S2 heard. Regular rate and rhythm. No murmur, no gallop. Ejection systolic murmur heard. RESPIRATORY SYSTEM: Normal AP diameter. No accessory muscle use. No wheezing, no crackles. ABDOMEN: Soft, bowel sounds present, nontender, no distention. CENTRAL NERVOUS SYSTEM: Alert and awake. Speech is clear. No facial droop. Obeys simple commands. Moves extremities, somewhat agitated. EXTREMITIES: No edema, no erythema. SKIN: Some bruises seen on extremities. LABORATORY DATA: WBC 2.5, hemoglobin 10.1, hematocrit 29.9, platelets 63. PT 12.3, INR 1.2, APTT 33. Sodium 131, potassium 4.5, chloride 97, BUN 78, creatinine 1.9, serum glucose 244, calcium 9.1, magnesium 2.2, total bilirubin 0.4, AST 39, ALT 36, alkaline phosphatase 51, total creatine kinase 49. Troponin I high sensitivity 19.1. BNP 781, lipase 381. Urinalysis positive for leukocyte esterase and +4 bacteria. SARS-CoV-2 rapid test negative. IMAGING DATA: CT of the head, preliminary report, no acute findings. CT of abdomen and pelvis without contrast, preliminary report, possible cystitis. Chest x-ray no acute findings. EKG: Poor quality data interpretation. Sinus tachycardia at a rate of 105. T- wave inversions in lateral leads and inferior leads, which were present in the prior EKGs. ASSESSMENT AND PLAN: This is a 71-year-old female who presents with frequent falls and confusion. 1. Confusion, frequent falls: Possibly secondary to urinary tract infection. ER started Rocephin, which we will continue. Follow the cultures. Closely monitor in the hospital. 2. Mild dementia Will monitor for delirium. Received a dose of im haldol 2mg. We will place on one on one as needed. 3. History of chronic systolic congestive heart failure: The patient's EF on echo in March 2020 shows 20%. The patient is on Lasix 40 mg 3 times a week, metoprolol succinate, which we will continue. Monitor for any volume overload. 4. Moderate aortic stenosis: Monitor for volume overload. 5 Pancytopenia: The patient's platelets were low in the past, but today her platelets are further low at 63 and white count is 2.5, hemoglobin 10.1. She has anemia of chronic kidney disease, . We will follow the labs . Needs followup. 6. Chronic kidney disease, stage IV: Presently with creatinine of 1.9, seems to be at baseline. We will follow the repeat labs. 7. Diabetes: Continue home long-acting insulin. We will place her on insulin sliding scale. Follow the blood sugars. Follow HbA1c levels. 8. History of hypertension: Continue metoprolol succinate. Will monitor the blood pressure. 9. History of depression, generalized anxiety disorder: On Zoloft. 10. Hyperlipidemia: On statin. 11. History of nocturnal hypoxia: Monitor, oxygen as needed. 12. Mild lipase elevated. Denies abdominal pain. Ct abd/pelvis without contrast unremarkable. Will follow repeat levels. 13. Deep venous thrombosis prophylaxis: SCDs for now as the patient has thrombocytopenia, can start heparin subQ if platelets improved. DISPOSITION: Closely monitor in [employer] tele. PT/OT prior to discharge. Social service to help with discharge planning. Level 1 full code for now. Job ID: [id number] MTDD
[2021-12-27 07:11] LABS: Hematocrit (blood only) 30.8 % (34.1-44.9); Hemoglobin 10.4 g/dl (12.0-16.0); Immature Granulocytes # (auto) 0.05 K/uL (0.00-0.02); Immature Granulocytes % (auto) 1.8 %; Lymphocytes # (auto) 0.68 K/uL (1.2-3.4); Lymphocytes % (auto) 23.9 %; Mean Platelet Volume 11.4 fL (9.4-12.3); Monocytes # (auto) 0.36 K/uL (0.24-0.82); Monocytes % (auto) 12.7 %; Neutrophils # (auto) 1.75 K/uL (1.4-6.5); Neutrophils % (auto) 61.6 %; Platelet Count 55 K/uL (130-400); White Blood Count 2.84 K/ul (4.8-10.8)
--- NOTE | 2021-12-27 07:20 | CT Scan Report ---
CT SCAN OF THE BRAIN WITHOUT IV CONTRAST CLINICAL HISTORY: Falls. COMPARISON STUDY: CT of the brain dated 03/22/2021. TECHNIQUE: Unenhanced axial CT scan of the brain is performed from the vertex to the skull base. A do se lowering technique was utilized adhering to the principles of ALARA. The patient was scanned twice due to motion artifact. The examination is motion degraded. CT DOSE: 1409.79 mGy.cm FINDINGS: Brain parenchyma: There is age-related involutional change noting [id number] subcortical and pe riventricular microangiopathic disease. There is no hemorrhage, mass effect, or evidence of acute ter ritorial ischemia by CT criteria. Espinoza-white matter differentiation is preserved. No extra-axial flui d collection is seen. Ventricles, sulci, cisterns: Prominent secondary to involutional change. Intracranial vasculature: There is atherosclerotic calcification of the cavernous carotid arteries. Calvarium: The skeletal structures are osteopenic. No depressed calvarial fracture is seen. Sinuses and mastoids: The visualized paranasal sinuses are clear. The mastoid air cells are well pneu matized. Orbits: The bony orbits are grossly intact. There are bilateral ocular lens implants. IMPRESSION: There is no hemorrhage, mass effect, or evidence of acute territorial ischemia by CT crit aditi. ACT 112: Negative or not required by law. Electronically signed by: Nicolas Wang M.D. 12/27/2021 7:18 AM
[2021-12-27 07:33] LABS: BUN Creatinine Ratio 39.6 (10-20); Creatinine Clr Calc Pharmacy 24.5 ml/min; Est GFR (African American) 30.6 ml/min; Est GFR (Non-African American) 26.4 ml/min; Magnesium 2.1 mg/dl (1.7-2.4); Potassium 4.4 mmol/L (3.5-5.1)
[2021-12-27 07:48] LABS: Mean Corpuscular Hemoglobin 32.4 pg (25.0-34.0); Mean Corpuscular Hgb Conc 33.8 g/dL (32.0-36.0); RDW Coefficient of Variation 13.1 % (11.5-14.5); RDW Standard Deviation 46.5 fL (36.4-46.3); Red Blood Count 3.21 M/uL (3.93-5.22)
[2021-12-27 07:56] LABS: Estimated Average Glucose 169 mg/dl; Hemoglobin A1C 7.5 % (4.5-5.6)
[2021-12-27] MEDS: ACETAMINOPHEN 325 MG TAB PO PRN ×2 (09:29→23:16)
[2021-12-27] MEDS: INSULIN ASPART PER UNIT SC SCH ×4 (09:30→21:16)
--- NOTE | 2021-12-27 09:54 | XRay Report ---
SINGLE VIEW CHEST CLINICAL HISTORY: Dyspnea. FINDINGS: An AP, portable, upright chest radiograph is compared to study dated 03/22/2021. A cardiac AICD partially obscures the right mid chest. The heart is enlarged. Atherosclerotic calcification of the thoracic aorta. The pulmonary vasculature is noncongested. Chronic interstitial thickening is sim ilar to previous. Scarring/atelectasis is noted at the lung bases. The lungs and pleural spaces are o therwise clear. No pneumothorax is seen. The skeletal structures are osteopenic. The bony thorax is g rossly intact. IMPRESSION: 1. Cardiomegaly and AICD without radiographic evidence of congestive failure. 2. No airspace consolidation or large pleural effusion is identified. ACT 112: Negative or not required by law. Electronically signed by: Nicolas Wang M.D. 12/27/2021 9:53 AM
--- NOTE | 2021-12-27 10:31 | CT Scan Report ---
CT SCAN OF THE ABDOMEN AND PELVIS WITHOUT IV CONTRAST CLINICAL HISTORY: Generalized abdominal pain. Back pain. Generalized weakness. COMPARISON STUDY: Abdominal CT dated 04/27/2019. TECHNIQUE: CT scan of the abdomen and pelvis is performed from the lung bases to the proximal femora. Images are reviewed in the axial, sagittal, and coronal planes. IV contrast was not administered for this examination. Note that the examination was performed in suboptimal fashion without oral and IV contrast. There is motion artifact, as well as streak artifact from the arms which could not be eleva santo above the abdomen. A dose lowering technique was utilized adhering to the principles of ALARA. FINDINGS: Lung bases: The heart is enlarged and without pericardial effusion. Pacemaker leads are noted. Evalua tion of the lung bases is significantly motion degraded. The lung bases are grossly clear noting depe ndent atelectasis. Liver: Evaluation of the liver is degraded by streak artifact. The unenhanced liver is normal in size , contour, and attenuation. There is no intrahepatic biliary ductal dilatation. Gallbladder: Contracted. Spleen: Normal in size and attenuation. Pancreas: The unenhanced pancreas is mildly atrophic and grossly unremarkable. Adrenal glands: Unremarkable. Kidneys: The unenhanced kidneys demonstrate mild cortical atrophy and are without hydronephrosis. The re are no renal calculi identified. There is no evidence of contour deforming renal mass lesion. Abdominal vasculature: The abdominal aorta is normal in course and caliber noting moderate atheroscle rotic calcification. Bowel: There is moderate colonic fecal retention. No bowel obstruction is seen. The appendix is not visualized. Peritoneum: There is no intraperitoneal free air or abdominal ascites. There is a small fat-containin g umbilical hernia. Lymphadenopathy: None. Pelvic viscera: The bladder wall appears circumferentially thickened. The uterus and adnexa are osblado l as visualized. Skeletal structures: The skeletal structures are osteopenic. There is a chronic superior endplate com pression deformity of T12. Mild to moderate lumbosacral spondylosis is observed. No lytic or blastic lesions are seen. IMPRESSION: 1. Suboptimal examination without oral and IV contrast. There is also streak and motion artifact. 2. The bladder wall appears circumferentially thickened. Correlate with clinical findings and urinaly sis. 3. Knne-if-huejcukq colonic fecal retention. 4. Cardiomegaly and cardiac pacemaker. 5. Additional findings as above. ACT 112: Negative or not required by law. Electronically signed by: Nicolas Wang M.D. 12/27/2021 10:29 AM
[2021-12-27] MEDS: GABAPENTIN 100 MG CAP PO SCH (11:01)
[2021-12-27] MEDS: ROSUVASTATIN CALCIUM 20 MG TAB PO SCH (11:02)
[2021-12-27] MEDS: METOPROLOL SUCC 50MG EXT REL TAB PO SCH ×2 (11:02→21:14)
[2021-12-27] MEDS: FUROSEMIDE 40 MG TAB PO SCH (11:02)
[2021-12-27] MEDS: ASPIRIN 81 MG ECTAB PO SCH (11:02)
--- NOTE | 2021-12-27 12:15 | Electrocardiogram Report ---
Test Reason : Blood Pressure : / mmHG Vent. Rate : 105 BPM Atrial Rate : 105 BPM P-R Int : 200 ms QRS Dur : 090 ms QT Int : 358 ms P-R-T Axes : 073 -01 184 degrees QTc Int : 473 ms Poor data quality, interpretation may be adversely affected Sinus tachycardia Possible Left atrial enlargement Abnormal ECG When compared with ECG of 06-MAR-2019 07:08, Premature ventricular complexes are no longer Present T wave inversion more evident in Lateral leads Confirmed by Sandip Mtz ([id number]) on 12/27/2021 12:14:48 PM Referred By: REFERRED SELF Confirmed By:Sandip Mtz
[2021-12-27] MEDS ORDERED: POLYETHYLENE (MIRALAX) 17 GM PACK PO ONE (12:48)
[2021-12-27] MEDS ORDERED: POLYETHYLENE (MIRALAX) 17 GM PACK PO PRN (12:48)
--- NOTE | 2021-12-27 17:55 | Hospitalist Progress Note ---
Date of Service December 27, 2021 Assessment & Plan (1) Falls frequently: Plan: Patient is a 71 yr female who presents with frequent falls and confusion. Acute Metabolic Encephalopathy Likely due to UTI -CT Head:There is no hemorrhage, mass effect, or evidence of acute territorial ischemia by CT criteria. -CT ABD:The bladder wall appears circumferentially thickened. Correlate with clinical findings and urinalysis. Urine culture pending Continue Rocephin Frequent falls Likely secondary to above PT OT Fall precautions Nocturnal hypoxia Uses supplemental oxygen at bedtime at baseline Mild dementia Monitor for delirium Chronic systolic congestive heart failure: Monitor aortic stenosis ECHO Mar 2020 shows 20%. Continue Lasix, metoprolol Monitor volume status Pancytopenia: Anemia of chronic kidney disease Monitor CBC Follow-up as outpatient CKD IV Cr at baseline Monitor renal function Avoid nephrotoxic agents as able DM II HbA1c 7.1 Continue insulin Monitor BGs Hypertension: Continue metoprolol Depression, generalized anxiety disorder: On Zoloft Hyperlipidemia: On statin. DVT Px: SCDs for now Re Thrombocytopenia CODE STATUS Full code Disposition PT OT prior to discharge Admission and Anticipated Discharge Date Admission Date: December 27, 2021 Subjective Patient is seen and examined at bedside States having headache and nausea this morning Dysuria improving Denies any chest pain, dyspnea, dizziness, abdominal pain, hematuria Offers no other complaints Review of Systems Review of Systems: All systems reviewed & are unremarkable except as noted in Subjective Physical Exam Physical Exam: Exam: Vitals signs as noted above General Appearance:Moderately built and nourished, no apparent distress Head: normocephalic, Atraumatic Eyes: normal inspection, EOMI Neck: supple, Trachea midline Respiratory/Chest: Normal breath sounds, CTA, No accessory muscle use Cardiovascular: S1, S2, +murmur Abdomen/GI:Soft, Non tender, Bowel sounds present Extremities/Musculoskeletal:normal inspection, no edema Neurologic/Psych:AAOX3, grossly no focal neurological deficits Skin: normal color, warm Results & Data Results & Data ([facility]) Vital Signs (Past 12 Hours) Vital Signs Temp Pulse Pulse Resp BP Pulse Ox O2 Del Method 12/27/21 16:00 36.8 C 87 18 100/49 L 100 Nasal Cannula 12/27/21 11:17 36.9 C 95 H 18 108/68 96 12/27/21 07:34 36.8 C 114 H 20 125/64 90 12/27/21 06:35 107 H 12/27/21 06:35 Room Air 12/27/21 06:35 Room Air O2 Flow Rate 12/27/21 16:00 2 12/27/21 11:17 2 12/27/21 07:34 2 12/27/21 06:35 12/27/21 06:35 12/27/21 06:35 Laboratory Results Short CBC 12/27/21 12/27/21 Range/Units 00:00 06:41 WBC 2.50 L 2.84 L (4.8-10.8) K/ul Hgb 10.1 L 10.4 L (12.0-16.0) g/dl Hct 29.9 L 30.8 L (34.1-44.9) % Plt Count 63 L 55 L (130-400) K/uL BMP 12/27/21 12/27/21 00:00 06:41 Sodium 131 L 132 L Potassium 4.5 4.4 Chloride 97 L 97 L Carbon Dioxide 25 26 BUN 78 H 74 H Creatinine 1.93 H 1.87 H Glucose 244 H 226 H Calcium 9.1 9.0 Cardiac Enzymes 12/27/21 Range/Units 00:00 Total Creatine Kinase 49 (26-192) U/L Liver Function 12/27/21 Range/Units 00:00 Total Bilirubin 0.4 (0.2-1.0) mg/dl AST 39 (13-39) U/L ALT 36 (7-52) U/L Alkaline Phosphatase 51 (34-104) U/L Albumin 4.4 (3.4-5.0) gm/dl Urine 12/27/21 Range/Units 00:27 Urine Color Yellow Urine Appearance Clear (Clear) Urine pH 5.0 (4.5-7.5) Ur Specific [place] 1.011 (1.000-1.030) Urine Protein Trace H (Negative) Urine Glucose (UA) Negative (Negative)
[2021-12-27] MEDS ORDERED: LANTUS PER UNIT CHARGE SQ SCH (21:00)
[2021-12-27] MEDS: SERTRALINE HCL 50 MG TABLET PO SCH (21:14)
[2021-12-27] MEDS: DOCUSATE SODIUM 100 MG CAP PO SCH (21:15)
[2021-12-28] MEDS: cefTRIAXone SODIUM 1,000 MG in DEXTROSE 5% 50 ML IV SCH (05:11)
[2021-12-28] MEDS: METOPROLOL SUCC 50MG EXT REL TAB PO SCH ×2 (07:56→22:25)
[2021-12-28] MEDS: DOCUSATE SODIUM 100 MG CAP PO SCH ×2 (07:57→22:24)
[2021-12-28] MEDS: ROSUVASTATIN CALCIUM 20 MG TAB PO SCH (07:57)
[2021-12-28] MEDS: ASPIRIN 81 MG ECTAB PO SCH (07:57)
[2021-12-28] MEDS: GABAPENTIN 100 MG CAP PO SCH (07:57)
[2021-12-28] MEDS: INSULIN ASPART PER UNIT SC SCH ×4 (08:00→22:32)
[2021-12-28] MEDS: ACETAMINOPHEN 325 MG TAB PO PRN ×2 (08:00→12:17)
[2021-12-28 08:19] LABS: BUN Creatinine Ratio 42.2 (10-20); Calcium 8.5 mg/dl (8.5-10.1); Creatinine Clr Calc Pharmacy 24.5 ml/min; Est GFR (African American) 30.6 ml/min; Est GFR (Non-African American) 26.4 ml/min; Potassium 4.2 mmol/L (3.5-5.1)
[2021-12-28 08:26] LABS: Hematocrit (blood only) 30.6 % (34.1-44.9); Hemoglobin 10.4 g/dl (12.0-16.0); Mean Corpuscular Hemoglobin 31.8 pg (25.0-34.0); Mean Corpuscular Volume 93.6 fL (80.0-100.0); Mean Platelet Volume 11.9 fL (9.4-12.3); Platelet Count 53 K/uL (130-400); RDW Coefficient of Variation 13.2 % (11.5-14.5); RDW Standard Deviation 45.1 fL (36.4-46.3); Red Blood Count 3.27 M/uL (3.93-5.22); White Blood Count 2.14 K/ul (4.8-10.8)
[2021-12-28] MEDS ORDERED: LANTUS PER UNIT CHARGE SQ SCH (09:17)
--- NOTE | 2021-12-28 16:10 | Hospitalist Progress Note ---
Date of Service December 28, 2021 Assessment & Plan (1) Falls frequently: Plan: Patient is a 71 yr female who presents with frequent falls and confusion. Acute Metabolic Encephalopathy Likely due to UTI -CT Head:There is no hemorrhage, mass effect, or evidence of acute territorial ischemia by CT criteria. -CT ABD:The bladder wall appears circumferentially thickened. Correlate with clinical findings and urinalysis. Urine culture growing gram negative bacilli Continue Rocephin Chronic Lumbago Obtain Lumbar X ray Frequent falls Likely secondary to above PT OT Fall precautions Nocturnal hypoxia Uses supplemental oxygen at bedtime at baseline Mild dementia Monitor for delirium Chronic systolic congestive heart failure: Monitor aortic stenosis ECHO Mar 2020 shows 20%. Continue Lasix, metoprolol Monitor volume status Pancytopenia: Anemia of chronic kidney disease Monitor CBC Follow-up as outpatient CKD IV Cr at baseline Monitor renal function Avoid nephrotoxic agents as able DM II HbA1c 7.1 Continue insulin Monitor BGs Hypertension: Continue metoprolol Depression, generalized anxiety disorder: On Zoloft Hyperlipidemia: On statin. DVT Px: SCDs for now Re Thrombocytopenia CODE STATUS Full code Disposition PT OT prior to discharge Admission and Anticipated Discharge Date Admission Date: December 27, 2021 Subjective Patient is seen and examined at bedside States having lower back pain since many days Denies any chest pain, dyspnea, dizziness, abdominal pain, hematuria Offers no other complaints Also anxious to pivot Review of Systems Review of Systems: All systems reviewed & are unremarkable except as noted in Subjective Physical Exam Physical Exam: Exam: Vitals signs as noted above General Appearance:Moderately built and nourished, no apparent distress Head: normocephalic, Atraumatic Eyes: normal inspection, EOMI Neck: supple, Trachea midline Respiratory/Chest: Normal breath sounds, CTA, No accessory muscle use Cardiovascular: S1, S2, +murmur Abdomen/GI:Soft, Non tender, Bowel sounds present Extremities/Musculoskeletal:normal inspection, no edema Neurologic/Psych:AAOX3, grossly no focal neurological deficits Skin: normal color, warm Results & Data Results & Data ([facility]) Vital Signs (Past 12 Hours) Vital Signs Temp Pulse Resp BP Pulse Ox O2 Del Method O2 Flow Rate 12/28/21 11:54 36.9 C 94 H 16 103/63 97 Nasal Cannula 2 12/28/21 09:16 37.2 C 97 H 16 108/61 94 Room Air 12/28/21 08:00 Nasal Cannula 2 Laboratory Results Short CBC 12/28/21 Range/Units 06:46 WBC 2.14 L (4.8-10.8) K/ul Hgb 10.4 L (12.0-16.0) g/dl Hct 30.6 L (34.1-44.9) % Plt Count 53 L (130-400) K/uL BMP 12/28/21 06:46 Sodium 133 L Potassium 4.2 Chloride 99 Carbon Dioxide 26 BUN 79 H Creatinine 1.87 H Glucose 185 H Calcium 8.5
--- NOTE | 2021-12-28 17:16 | XRay Report ---
XR lumbar spine 2-3V CLINICAL HISTORY: Back pain. COMPARISON STUDY: CT of the abdomen and pelvis December 27, 2021. FINDINGS: Old moderate T12 compression deformity is present. No acute lumbar spine fracture is presen t. Slight loss of height of the superior endplate of L3 is chronic and likely degenerative. There are no suspicious osseous lesions. Moderate multilevel facet arthrosis is present. Disc spaces are prese rved. There is mild endplate osteophytosis at several levels. IMPRESSION: 1. No acute lumbar spine fracture or subluxation. 2. Moderate multilevel facet arthrosis and mild degenerative disc disease within the lumbar spine. ACT 112: Negative or not required by law. Electronically signed by: oJsr Gaines M.D. 12/28/2021 5:14 PM
[2021-12-28] MEDS: SERTRALINE HCL 50 MG TABLET PO SCH (22:24)
[2021-12-28] MEDS: LANTUS PER UNIT CHARGE SQ SCH (22:31)
[2021-12-29] MEDS: cefTRIAXone SODIUM 1,000 MG in DEXTROSE 5% 50 ML IV SCH (06:21)
[2021-12-29 07:46] LABS: Hematocrit (blood only) 30.3 % (34.1-44.9); Hemoglobin 10.5 g/dl (12.0-16.0); Mean Platelet Volume 11.7 fL (9.4-12.3); Platelet Count 50 K/uL (130-400); White Blood Count 2.43 K/ul (4.8-10.8)
[2021-12-29 08:08] LABS: BUN Creatinine Ratio 45.1 (10-20); Calcium 8.4 mg/dl (8.5-10.1); Creatinine Clr Calc Pharmacy 22.4 ml/min; Est GFR (African American) 27.5 ml/min; Est GFR (Non-African American) 23.8 ml/min; Potassium 4.1 mmol/L (3.5-5.1)
[2021-12-29] MEDS: INSULIN ASPART PER UNIT SC SCH ×5 (08:09→21:41)
[2021-12-29 08:15] LABS: Mean Corpuscular Hemoglobin 32.2 pg (25.0-34.0); Mean Corpuscular Hgb Conc 34.7 g/dL (32.0-36.0); Mean Corpuscular Volume 92.9 fL (80.0-100.0); RDW Coefficient of Variation 13.2 % (11.5-14.5); RDW Standard Deviation 45.1 fL (36.4-46.3); Red Blood Count 3.26 M/uL (3.93-5.22)
[2021-12-29] MEDS: ASPIRIN 81 MG ECTAB PO SCH (08:41)
[2021-12-29] MEDS: GABAPENTIN 100 MG CAP PO SCH (08:41)
[2021-12-29] MEDS: DOCUSATE SODIUM 100 MG CAP PO SCH ×2 (08:41→21:39)
[2021-12-29] MEDS: FUROSEMIDE 40 MG TAB PO SCH (08:41)
[2021-12-29] MEDS: ROSUVASTATIN CALCIUM 20 MG TAB PO SCH (08:41)
[2021-12-29] MEDS: METOPROLOL SUCC 50MG EXT REL TAB PO SCH ×2 (08:41→21:39)
[2021-12-29] MEDS ORDERED: PHARMACY GLYCEMIC MGMT CONSULT PRN (09:11)
--- NOTE | 2021-12-29 12:36 | Pharmacy Report ---
Pharmacy Glycemic Short Note 2 - Date of Service December 29, 2021 - Glycemic Short BSG Results (Last 24 hours): 12/28/21 12/28/21 12/28/21 16:57 19:54 21:58 Glucose POC Glucose 233 H 322 H* 298 H 12/29/21 12/29/21 12/29/21 07:17 07:39 11:54 Glucose 216 H POC Glucose 219 H 248 H OUTPATIENT ANTIDIABETIC REGIMEN: * Basaglar 16 units SQ qHS * Victoza 1.8g SQ qHS * HbA1c: 7.5% (12/27/21) ASSESSMENT: * Ms Ribera is a 71yo diabetic F admitted 12/27/21 after having repeated episodes of falling. * BSGs have been elevated thus far. Pharmacy glycemic mgmt consult received this morning. * Fasting BSG was elevated this morning, but Lantus dose was increased from 16 units --> 20 units last night. Given patient's renal impairment (SCr 2.04), hesitate to increase this dose even further at this time. Will consider increasing tomorrow if BSGs have not improved. * Novolog parameters adjusted this morning to provide additional prandial coverage. * Will continue to follow and make adjustments as indicated. PLAN FOR INPATIENT GLYCEMIC CONTROL: * Basal insulin * Lantus 20 units SQ qHS * Bolus insulin * NovoLog per scale ACHS or Q6hrs while NPO * Goal Range: Low 110 mg/dL - High 140 mg/dL * Correction Factor: 25 mg/dL/unit * Nutritional / Prandial insulin per carb ratio of 1 unit per 9 grams CHO consumed
[2021-12-29] MEDS: ACETAMINOPHEN 325 MG TAB PO PRN (12:59)
[2021-12-29] MEDS ORDERED: PROMETHAZINE HCL 6.25 MG in SODIUM CHLORIDE 0.9% 50 ML IV PRN (15:20)
--- NOTE | 2021-12-29 17:18 | Hospitalist Progress Note ---
Date of Service December 29, 2021 Assessment & Plan (1) Falls frequently: Plan: Patient is a 71 yr female who presents with frequent falls and confusion. Acute Metabolic Encephalopathy Likely due to UTI -CT Head:There is no hemorrhage, mass effect, or evidence of acute territorial ischemia by CT criteria. -CT ABD:The bladder wall appears circumferentially thickened. Correlate with clinical findings and urinalysis. Urine culture growing Klebsiella Continue Rocephin Chronic Lumbago Lumbar X ray:No acute lumbar spine fracture or subluxation.Moderate multilevel facet arthrosis and mild degenerative disc disease within the lumbar spine. Continue PT/OT Frequent falls Likely secondary to above PT OT Fall precautions Nocturnal hypoxia Uses supplemental oxygen at bedtime at baseline Mild dementia Monitor for delirium Chronic systolic congestive heart failure: Monitor aortic stenosis ECHO Mar 2020 shows 20%. Continue Lasix, metoprolol Monitor volume status Pancytopenia: Anemia of chronic kidney disease Monitor CBC Follow-up as outpatient CKD IV Cr at baseline Monitor renal function Avoid nephrotoxic agents as able DM II HbA1c 7.1 Continue insulin Monitor BGs Hypertension: Continue metoprolol Depression, generalized anxiety disorder: On Zoloft Hyperlipidemia: On statin. DVT Px: SCDs for now Re Thrombocytopenia CODE STATUS Full code Disposition PT OT prior to discharge Admission and Anticipated Discharge Date Admission Date: December 27, 2021 Subjective Patient is seen and examined at bedside "I feel half and half" Back pain is better today Feels tired Discussed with patient's son over the phone in detail Urine culture growing Klebsiella Offers no other complaints Review of Systems Review of Systems: All systems reviewed & are unremarkable except as noted in Subjective Physical Exam Physical Exam: Exam: Vitals signs as noted above General Appearance:Moderately built and nourished, no apparent distress Head: normocephalic, Atraumatic Eyes: normal inspection, EOMI Neck: supple, Trachea midline Respiratory/Chest: Normal breath sounds, CTA, No accessory muscle use Cardiovascular: S1, S2, +murmur Abdomen/GI:Soft, Non tender, Bowel sounds present Extremities/Musculoskeletal:normal inspection, no edema Neurologic/Psych:AAOX3, grossly no focal neurological deficits Skin: normal color, warm Results & Data Results & Data ([facility]) Vital Signs (Past 12 Hours) Vital Signs Temp Pulse Pulse Resp BP Pulse Ox O2 Del Method 12/29/21 15:47 37.4 C 85 16 124/79 95 Room Air 12/29/21 12:11 Nasal Cannula 12/29/21 11:04 37.3 C 90 16 103/63 94 Room Air 12/29/21 07:19 93 H 12/29/21 06:50 37.1 C 85 18 121/69 91 Room Air O2 Flow Rate 12/29/21 15:47 12/29/21 12:11 2 12/29/21 11:04 12/29/21 07:19 12/29/21 06:50 Laboratory Results Short CBC 12/29/21 Range/Units 07:17 WBC 2.43 L (4.8-10.8) K/ul Hgb 10.5 L (12.0-16.0) g/dl Hct 30.3 L (34.1-44.9) % Plt Count 50 L (130-400) K/uL BMP 12/29/21 07:17 Sodium 133 L Potassium 4.1 Chloride 100 Carbon Dioxide 25 BUN 92 H Creatinine 2.04 H Glucose 216 H Calcium 8.4 L
[2021-12-29] MEDS: SERTRALINE HCL 50 MG TABLET PO SCH (21:39)
[2021-12-29] MEDS: LANTUS PER UNIT CHARGE SQ SCH (21:40)
[2021-12-30] MEDS: METOPROLOL SUCC 25MG EXT REL TAB PO SCH ×2 (05:04→22:02)
[2021-12-30] MEDS: cefTRIAXone SODIUM 1,000 MG in DEXTROSE 5% 50 ML IV SCH (06:14)
[2021-12-30 07:29] LABS: BUN Creatinine Ratio 49.5 (10-20); Calcium 8.5 mg/dl (8.5-10.1); Creatinine Clr Calc Pharmacy 24.1 ml/min; Est GFR (Non-African American) 25.9 ml/min; Magnesium 2.1 mg/dl (1.7-2.4); Potassium 4.2 mmol/L (3.5-5.1)
[2021-12-30] MEDS: ROSUVASTATIN CALCIUM 20 MG TAB PO SCH (08:34)
[2021-12-30] MEDS: GABAPENTIN 100 MG CAP PO SCH (08:34)
[2021-12-30] MEDS: ASPIRIN 81 MG ECTAB PO SCH (08:34)
[2021-12-30] MEDS: DOCUSATE SODIUM 100 MG CAP PO SCH ×2 (08:34→22:01)
[2021-12-30] MEDS: INSULIN ASPART PER UNIT SC SCH ×4 (08:36→22:02)
[2021-12-30] MEDS: ACETAMINOPHEN 325 MG TAB PO PRN (08:46)
--- NOTE | 2021-12-30 19:23 | Hospitalist Progress Note ---
Date of Service December 30, 2021 Assessment & Plan (1) Falls frequently: Plan: Patient is a 71 yr female who presents with frequent falls and confusion. Acute Metabolic Encephalopathy Likely due to UTI -CT Head:There is no hemorrhage, mass effect, or evidence of acute territorial ischemia by CT criteria. -CT ABD:The bladder wall appears circumferentially thickened. Correlate with clinical findings and urinalysis. Urine culture growing Klebsiella Continue Rocephin Transition to p.o. antibiotics as able Chronic Lumbago Lumbar X ray:No acute lumbar spine fracture or subluxation.Moderate multilevel facet arthrosis and mild degenerative disc disease within the lumbar spine. Continue PT/OT Frequent falls Likely secondary to above PT OT: Refuses Rehab Fall precautions Nocturnal hypoxia Uses supplemental oxygen at bedtime at baseline Mild dementia Monitor for delirium Chronic systolic congestive heart failure: Monitor aortic stenosis ECHO Mar 2020 shows 20%. Continue Lasix, metoprolol Monitor volume status Pancytopenia: Anemia of chronic kidney disease Monitor CBC Follow-up as outpatient CKD IV Cr at baseline Monitor renal function Avoid nephrotoxic agents as able DM II HbA1c 7.1 Continue insulin Monitor BGs Adjust Insulin as needed Hypertension: Continue metoprolol Depression, generalized anxiety disorder: On Zoloft Hyperlipidemia: On statin. DVT Px: SCDs for now Re Thrombocytopenia CODE STATUS Full code Disposition PT OT prior to discharge Admission and Anticipated Discharge Date Admission Date: December 27, 2021 Subjective Patient is seen and examined at bedside Back pain improved States feeling tired Headache intermittently Hyperglycemic on blood work No other complaints Review of Systems Review of Systems: All systems reviewed & are unremarkable except as noted in Subjective Physical Exam Physical Exam: Exam: Vitals signs as noted above General Appearance:Moderately built and nourished, no apparent distress Head: normocephalic, Atraumatic Eyes: normal inspection, EOMI Neck: supple, Trachea midline Respiratory/Chest: Normal breath sounds, CTA, No accessory muscle use Cardiovascular: S1, S2, +murmur Abdomen/GI:Soft, Non tender, Bowel sounds present Extremities/Musculoskeletal:normal inspection, no edema Neurologic/Psych:AAOX3, grossly no focal neurological deficits Skin: normal color, warm Results & Data Results & Data ([facility]) Vital Signs (Past 12 Hours) Vital Signs Temp Pulse Pulse Resp BP Pulse Ox O2 Del Method 12/30/21 17:53 86 12/30/21 08:00 89 12/30/21 07:32 36.8 C 88 18 112/68 94 Room Air Laboratory Results [facility] 12/30/21 12/30/21 06:43 12:17 Sodium 136 Potassium 4.2 Chloride 102 Carbon Dioxide 24 BUN 94 H Creatinine 1.90 H Glucose 140 H 372 H* Calcium 8.5
[2021-12-30] MEDS: LANTUS PER UNIT CHARGE SQ SCH (22:02)
[2021-12-30] MEDS: SERTRALINE HCL 50 MG TABLET PO SCH (22:03)
[2021-12-31] MEDS: cefTRIAXone SODIUM 1,000 MG in DEXTROSE 5% 50 ML IV SCH (06:43)
[2021-12-31] MEDS: ACETAMINOPHEN 325 MG TAB PO PRN ×2 (08:24→21:20)
[2021-12-31] MEDS: INSULIN ASPART PER UNIT SC SCH ×4 (08:27→21:17)
[2021-12-31] MEDS: ROSUVASTATIN CALCIUM 20 MG TAB PO SCH (09:11)
[2021-12-31] MEDS: DOCUSATE SODIUM 100 MG CAP PO SCH ×2 (09:11→21:17)
[2021-12-31] MEDS: GABAPENTIN 100 MG CAP PO SCH (09:11)
[2021-12-31] MEDS: METOPROLOL SUCC 25MG EXT REL TAB PO SCH ×2 (09:12→21:16)
[2021-12-31] MEDS: ASPIRIN 81 MG ECTAB PO SCH (09:12)
--- NOTE | 2021-12-31 11:53 | XRay Report ---
KUB CLINICAL HISTORY: Generalized abdominal pain. FINDINGS: 2 AP supine abdominal radiographs are correlated with abdominal CT dated 12/27/2021. There i s a nonobstructed abdominal bowel gas pattern. Fecal retention is noted in the rectosigmoid. No evide nce of intraperitoneal free air is seen on these supine images. There are no abnormal abdominal calci fications. The skeletal structures are osteopenic and appear intact. The heart is enlarged and an AIC D is in place. The lung bases are clear as imaged. IMPRESSION: No acute abnormality is identified. Electronically signed by: Nicolas Wang M.D. 12/31/2021 11:51 AM
--- NOTE | 2021-12-31 15:31 | Hospitalist Progress Note ---
Date of Service December 31, 2021 Assessment & Plan (1) Falls frequently: Plan: Patient is a 71 yr female who presents with frequent falls and confusion. Acute Metabolic Encephalopathy Likely due to UTI -CT Head:There is no hemorrhage, mass effect, or evidence of acute territorial ischemia by CT criteria. -CT ABD:The bladder wall appears circumferentially thickened. Correlate with clinical findings and urinalysis. Urine culture growing Klebsiella Continue Rocephin Complete the antibiotic course Chronic Lumbago Lumbar X ray:No acute lumbar spine fracture or subluxation.Moderate multilevel facet arthrosis and mild degenerative disc disease within the lumbar spine. Continue PT/OT: Needs SNF Frequent falls Likely secondary to above PT OT:Needs 2 person assist Fall precautions Rehab as able Nocturnal hypoxia Uses supplemental oxygen at bedtime at baseline Mild dementia Monitor for delirium Chronic systolic congestive heart failure: Monitor aortic stenosis ECHO Mar 2020 shows 20%. Continue Lasix, metoprolol Monitor volume status Pancytopenia: Anemia of chronic kidney disease Monitor CBC Follow-up as outpatient CKD IV Cr at baseline Monitor renal function Avoid nephrotoxic agents as able DM II HbA1c 7.1 Continue insulin Monitor BGs Adjust Insulin as needed Hypertension: Continue metoprolol Depression, generalized anxiety disorder: On Zoloft Hyperlipidemia: On statin. DVT Px: SCDs for now Re Thrombocytopenia CODE STATUS Full code Disposition Needs SNF placement Case management to help with discharge planning Admission and Anticipated Discharge Date Admission Date: December 27, 2021 Subjective Patient is seen and examined at bedside No new complaints Discussed with patient's family at bedside History unreliable due to memory issues Reports chronic generalized ache Review of Systems Review of Systems: All systems reviewed & are unremarkable except as noted in Subjective Physical Exam Physical Exam: Exam: Vitals signs as noted above General Appearance:Moderately built and nourished, no apparent distress Head: normocephalic, Atraumatic Eyes: normal inspection, EOMI Neck: supple, Trachea midline Respiratory/Chest: Normal breath sounds, CTA, No accessory muscle use Cardiovascular: S1, S2, +murmur Abdomen/GI:Soft, Non tender, Bowel sounds present Extremities/Musculoskeletal:normal inspection, no edema Neurologic/Psych:AAOX3, grossly no focal neurological deficits Skin: normal color, warm Results & Data Results & Data ([facility]) Vital Signs (Past 12 Hours) Vital Signs Temp Pulse Resp BP BP Pulse Ox O2 Del Method 12/31/21 07:00 Room Air 12/31/21 15:03 36.8 C 92 H 16 98/54 L 96 Room Air 12/31/21 10:59 36.7 C 86 16 108/59 L 95 Room Air 12/31/21 06:00 36.7 C 89 18 121/71 97 Room Air 12/31/21 03:58 36.5 C 88 18 114/68 92 Room Air
[2021-12-31] MEDS: SERTRALINE HCL 50 MG TABLET PO SCH (21:17)
[2021-12-31] MEDS: LANTUS PER UNIT CHARGE SQ SCH (21:18)
[2022-01-01] MEDS: cefTRIAXone SODIUM 1,000 MG in DEXTROSE 5% 50 ML IV SCH (05:39)
[2022-01-01] MEDS: METOPROLOL SUCC 25MG EXT REL TAB PO SCH ×2 (09:10→21:09)
[2022-01-01] MEDS: ASPIRIN 81 MG ECTAB PO SCH (09:10)
[2022-01-01] MEDS: GABAPENTIN 100 MG CAP PO SCH (09:11)
[2022-01-01] MEDS: FUROSEMIDE 40 MG TAB PO SCH (09:11)
[2022-01-01] MEDS: DOCUSATE SODIUM 100 MG CAP PO SCH ×2 (09:11→21:08)
[2022-01-01] MEDS: INSULIN ASPART PER UNIT SC SCH ×4 (09:11→21:09)
[2022-01-01] MEDS: ROSUVASTATIN CALCIUM 20 MG TAB PO SCH (09:11)
--- NOTE | 2022-01-01 09:33 | Pharmacy Report ---
Pharmacy Glycemic Short Note 2 - Date of Service January 01, 2022 - Glycemic Short BSG Results (Last 24 hours): 12/31/21 12/31/21 01/01/22 11:07 16:40 07:23 POC Glucose 166 H 268 H 128 H OUTPATIENT ANTIDIABETIC REGIMEN: * Basaglar 16 units SC HS * Victoza 1.8 mg SC HS * HbA1c = 7.5% (12/27/21) ASSESSMENT: 01/01: * Radha received 56 units of insulin on Saturday (20 basal + 36 bolus) and only 29 units of insulin on Saturday (15 basal + 14 bolus). * BSGs ranged 101-372 mg/dL. * Fasting BSG was 128 mg/dL this AM which is well controlled. * Basal insulin was decreased yesterday secondary to a fasting BSG of 101 mg/dL. * No change to basal today. If fasting trends up tomorrow, consider increasing basal slightly. * Persistent trend in postprandial hyperglycemia indicating poor carb coverage. * Will tighten both correctional and prandial parameters this AM. Does have a history of stacking leading to BSGs below goal in the evening. If this is true this evening, consider tighter coverage with breakfast & lunch and loosening coverage for dinner & bedtime. 12/29: * Ms Ribera is a 71yo diabetic F admitted 12/27/21 after having repeated episodes of falling. * BSGs have been elevated thus far. Pharmacy glycemic mgmt consult received this morning. * Fasting BSG was elevated this morning, but Lantus dose was increased from 16 units --> 20 units last night. Given patient's renal impairment (SCr 2.04), hesitate to increase this dose even further at this time. Will consider increasing tomorrow if BSGs have not improved. * Novolog parameters adjusted this morning to provide additional prandial coverage. * Will continue to follow and make adjustments as indicated. PLAN FOR INPATIENT GLYCEMIC CONTROL: * Basal insulin * Lantus 15 units SC HS * Bolus insulin * NovoLog per scale ACHS or Q6hrs while NPO * Goal Range: Low 110 mg/dL - High 140 mg/dL * Correction Factor: 15 mg/dL/unit * Nutritional / Prandial insulin per carb ratio of 1 unit per 5 grams CHO consumed
[2022-01-01 09:51] LABS: Neutrophils # (auto) 0.38 K/uL (1.4-6.5); White Blood Count 1.71 K/ul (4.8-10.8)
--- NOTE | 2022-01-01 14:37 | Hospitalist Progress Note ---
Date of Service January 01, 2022 Assessment & Plan (1) Falls frequently: Plan: Patient is a 71 yr female who presents with frequent falls and confusion. Acute Metabolic Encephalopathy Likely due to UTI -CT Head:There is no hemorrhage, mass effect, or evidence of acute territorial ischemia by CT criteria. -CT ABD:The bladder wall appears circumferentially thickened. Correlate with clinical findings and urinalysis. Urine culture growing Klebsiella Continue Rocephin>> transition to cefdinir to complete the course. Pancytopenia Chronic thrombocytopenia as per records Peripheral smear: Nonspecific pancytopenia. No more changes of myelodysplasia or hemolysis Monitor platelets, neutrophils Needs follow-up with hematology as outpatient No bleeding issues currently Neutropenic precautions Chronic Lumbago Lumbar X ray:No acute lumbar spine fracture or subluxation.Moderate multilevel facet arthrosis and mild degenerative disc disease within the lumbar spine. Continue PT/OT: Needs Rehab Frequent falls Likely secondary to above PT OT:Needs 2 person assist Fall precautions Rehab as able Nocturnal hypoxia Uses supplemental oxygen at bedtime at baseline Mild dementia Monitor for delirium Chronic systolic congestive heart failure: Monitor aortic stenosis ECHO Mar 2020 shows 20%. Continue Lasix, metoprolol Monitor volume status Pancytopenia: Anemia of chronic kidney disease Monitor CBC Follow-up as outpatient CKD IV Cr at baseline Monitor renal function Avoid nephrotoxic agents as able DM II HbA1c 7.1 Continue insulin Monitor BGs Adjust Insulin as needed Hypertension: Continue metoprolol Depression, generalized anxiety disorder: On Zoloft Hyperlipidemia: On statin. DVT Px: SCDs for now Re Thrombocytopenia CODE STATUS Full code Disposition Needs SNF placement Case management to help with discharge planning Admission and Anticipated Discharge Date Admission Date: December 27, 2021 Subjective Patient is seen and examined at bedside Sitting in chair comfortably during my encounter States feeling much better today Denies any back pain, headache today Offers no new complaints Waiting for rehab placement Denies any chest pain, dyspnea, dizziness, nausea, abdominal pain Review of Systems Review of Systems: All systems reviewed & are unremarkable except as noted in Subjective Physical Exam Physical Exam: Exam: Vitals signs as noted above General Appearance:Moderately built and nourished, no apparent distress Head: normocephalic, Atraumatic Eyes: normal inspection, EOMI Neck: supple, Trachea midline Respiratory/Chest: Normal breath sounds, CTA, No accessory muscle use Cardiovascular: S1, S2, +murmur Abdomen/GI:Soft, Non tender, Bowel sounds present Extremities/Musculoskeletal:normal inspection, no edema Neurologic/Psych:AAOX3, grossly no focal neurological deficits Skin: normal color, warm Results & Data Results & Data ([facility]) Vital Signs (Past 12 Hours) Vital Signs Temp Pulse Pulse Resp BP BP Pulse Ox 01/01/22 11:24 36.7 C 102 H 18 113/58 L 97 01/01/22 08:10 94 H 01/01/22 07:46 36.8 C 95 H 18 127/69 94 01/01/22 03:04 36.5 C 87 18 111/60 96 O2 Del Method 01/01/22 11:24 Room Air 01/01/22 08:10 01/01/22 07:46 Room Air 01/01/22 03:04 Room Air Laboratory Results Short CBC 01/01/22 Range/Units 08:34 WBC 1.71 L (4.8-10.8) K/ul
[2022-01-01] MEDS: SERTRALINE HCL 50 MG TABLET PO SCH (21:08)
[2022-01-01] MEDS: ACETAMINOPHEN 325 MG TAB PO PRN (21:09)
[2022-01-01] MEDS: LANTUS PER UNIT CHARGE SQ SCH (21:10)
[2022-01-02 07:10] LABS: Hematocrit (blood only) 28.7 % (34.1-44.9); Hemoglobin 9.8 g/dl (12.0-16.0); Platelet Count 61 K/uL (130-400); White Blood Count 1.76 K/ul (4.8-10.8)
[2022-01-02 07:33] LABS: Eosinophils # (auto) 0.01 K/uL (0-0.50); Eosinophils % (auto) 0.6 %; Immature Granulocytes # (auto) 0.02 K/uL (0.00-0.02); Immature Granulocytes % (auto) 1.1 %; Lymphocytes # (auto) 1.17 K/uL (1.2-3.4); Lymphocytes % (auto) 66.5 %; Mean Corpuscular Hemoglobin 31.5 pg (25.0-34.0); Mean Corpuscular Hgb Conc 34.1 g/dL (32.0-36.0); Mean Corpuscular Volume 92.3 fL (80.0-100.0); Monocytes # (auto) 0.25 K/uL (0.24-0.82); Monocytes % (auto) 14.2 %; Neutrophils # (auto) 0.31 K/uL (1.4-6.5); Neutrophils % (auto) 17.6 %; RDW Coefficient of Variation 13.1 % (11.5-14.5); RDW Standard Deviation 44.3 fL (36.4-46.3); Red Blood Count 3.11 M/uL (3.93-5.22)
[2022-01-02 07:54] VITALS: O2SAT 97
[2022-01-02] MEDS ORDERED: CEFDINIR 300 MG CAP PO SCH (09:00)
[2022-01-02 09:02] LABS: BUN Creatinine Ratio 50.6 (10-20); Calcium 8.2 mg/dl (8.5-10.1); Est GFR (African American) 32.9 ml/min; Est GFR (Non-African American) 28.4 ml/min; Potassium 4.2 mmol/L (3.5-5.1)
[2022-01-02] MEDS: INSULIN ASPART PER UNIT SC SCH ×2 (09:04→12:57)
[2022-01-02] MEDS: GABAPENTIN 100 MG CAP PO SCH (09:09)
[2022-01-02] MEDS: METOPROLOL SUCC 25MG EXT REL TAB PO SCH (09:10)
[2022-01-02] MEDS: ROSUVASTATIN CALCIUM 20 MG TAB PO SCH (09:10)
[2022-01-02] MEDS: ASPIRIN 81 MG ECTAB PO SCH (09:56)
[2022-01-02] MEDS: DOCUSATE SODIUM 100 MG CAP PO SCH (09:56)
[2022-01-02 11:52] VITALS: BP 124/66; PULSE 93; TEMP 98.1
--- NOTE | 2022-01-02 13:06 | Hospitalist Progress Note ---
Date of Service January 02, 2022 Assessment & Plan (1) Falls frequently: Plan: Patient is a 71 yr female who presents with frequent falls and confusion. Acute Metabolic Encephalopathy Likely due to UTI -CT Head:There is no hemorrhage, mass effect, or evidence of acute territorial ischemia by CT criteria. -CT ABD:The bladder wall appears circumferentially thickened. Correlate with clinical findings and urinalysis. Urine culture growing Klebsiella Continue Rocephin>> transitioned to cefdinir to complete the course. Pancytopenia Chronic thrombocytopenia as per records Peripheral smear: Nonspecific pancytopenia. No more changes of myelodysplasia or hemolysis Monitor platelets, neutrophils No bleeding issues currently Neutropenic precautions Needs follow-up with hematology as outpatient Thrombocytopenia slowly improving Chronic Lumbago Lumbar X ray:No acute lumbar spine fracture or subluxation.Moderate multilevel facet arthrosis and mild degenerative disc disease within the lumbar spine. Continue PT/OT: Needs Rehab Frequent falls Likely secondary to above PT OT:Needs 2 person assist Fall precautions Rehab as able Nocturnal hypoxia Uses supplemental oxygen at bedtime at baseline Mild dementia Monitor for delirium Chronic systolic congestive heart failure: Monitor aortic stenosis ECHO Mar 2020 shows 20%. Continue Lasix, metoprolol Monitor volume status Pancytopenia: Anemia of chronic kidney disease Monitor CBC Follow-up as outpatient CKD IV Cr at baseline Monitor renal function Avoid nephrotoxic agents as able DM II HbA1c 7.1 Continue insulin Monitor BGs Adjust Insulin as needed Hypertension: Continue metoprolol Depression, generalized anxiety disorder: On Zoloft Hyperlipidemia: On statin. DVT Px: SCDs for now Re Thrombocytopenia CODE STATUS Full code Disposition SNF Admission and Anticipated Discharge Date Admission Date: December 27, 2021 Subjective Patient is seen and examined at bedside States having some back discomfort while sitting in chair Denies any chest pain, dyspnea, dizziness, nausea, abdominal pain No other complaints Plan to discharge to rehab facility today Review of Systems Review of Systems: All systems reviewed & are unremarkable except as noted in Subjective Physical Exam Physical Exam: Exam: Vitals signs as noted above General Appearance:Moderately built and nourished, no apparent distress Head: normocephalic, Atraumatic Eyes: normal inspection, EOMI Neck: supple, Trachea midline Respiratory/Chest: Normal breath sounds, CTA, No accessory muscle use Cardiovascular: S1, S2, +murmur Abdomen/GI:Soft, Non tender, Bowel sounds present Extremities/Musculoskeletal:normal inspection, no edema Neurologic/Psych:AAOX3, grossly no focal neurological deficits Skin: normal color, warm Results & Data Results & Data ([facility]) Vital Signs (Past 12 Hours) Vital Signs Temp Pulse Pulse Resp BP BP Pulse Ox 01/02/22 11:51 36.7 C 93 H 15 124/66 97 01/02/22 07:30 01/02/22 07:52 36.3 C L 90 17 132/71 97 01/02/22 07:42 82 01/02/22 04:00 37.1 C 75 18 114/72 96 O2 Del Method 01/02/22 11:51 Room Air 01/02/22 07:30 Room Air 01/02/22 07:52 Room Air 01/02/22 07:42 01/02/22 04:00 Room Air Laboratory Results Short CBC 01/02/22 Range/Units 06:50 WBC 1.76 L (4.8-10.8) K/ul Hgb 9.8 L (12.0-16.0) g/dl Hct 28.7 L (34.1-44.9) % Plt Count 61 L (130-400) K/uL BMP 01/02/22 06:50 Sodium 138 Potassium 4.2 Chloride 104 Carbon Dioxide 24 BUN 89 H Creatinine 1.76 H Glucose 124 H Calcium 8.2 L
--- NOTE | 2022-01-02 13:23 | Discharge Summary ---
Date of Service January 02, 2022 Admission HPI Per Admitting Provider CHIEF COMPLAINT: Frequent falls, confusion. HISTORY OF PRESENT ILLNESS: This is a 71-year-old female with past medical history significant for type 2 diabetes, chronic kidney disease, stage IV; hyperlipidemia, hyperparathyroidism, nocturnal hypoxia, chronic systolic CHF, hypertension, non-rheumatic mitral regurgitation, aortic stenosis, status post AICD, status post PA, GERD, slow transit constipation, mild dementia, history of tension headache, anemia of chronic kidney disease, thrombocytopenia, general anxiety disorder, recurrent major depression, in remission, presents with falls. The patient lives in a garage of her son, who lives in an apartment . Seems has cameras in garage and son saw that she fell, she fell slowly, seems to be 3 times. She also has a bruise on her extremities and was brought in here and found to have UTI. The patient initially was pleasant, was answering questions appropriately. No headache. No blurred visions, no runny nose, no sore throat. Occasional cough. Denies any chest pain currently. Denies any shortness of breath currently. No nausea, no abdominal pain. Denies any burning micturition. She states she is somewhat constipated. No swelling in the legs. Ambulates with a walker. Later, the patient wanted to micturate and nursing staff has worried that she will fall down, she refused to use a bedpan and she was very adamant and finally have to use bed side commode.Then she was adamant that she wanted to read the bible , Thinks it in her shelf.She seemed agitated and confused. Hemodynamically stable. Admission Exam Per Admitting Provider PHYSICAL EXAMINATION: GENERAL: The patient is alert and awake, somewhat confused, mild agitation. VITAL SIGNS: Temperature 36.4, pulse 108, respiratory rate 19, blood pressure 128/70, oxygen 100% on room air. HEENT: Pupils equal, round and reactive to light. Oral mucosa dry. NECK: No JVD or neck masses. CARDIOVASCULAR: S1 and S2 heard. Regular rate and rhythm. No murmur, no gallop. Ejection systolic murmur heard. RESPIRATORY SYSTEM: Normal AP diameter. No accessory muscle use. No wheezing, no crackles. ABDOMEN: Soft, bowel sounds present, nontender, no distention. CENTRAL NERVOUS SYSTEM: Alert and awake. Speech is clear. No facial droop. Obeys simple commands. Moves extremities, somewhat agitated. EXTREMITIES: No edema, no erythema. SKIN: Some bruises seen on extremities. Principal Diagnosis Acute Metabolic Encephalopathy Urinary tract infection Pancytopenia Frequent falls CKD IV Nocturnal Hypoxia Discharge Data Allergies Allergy/AdvReac Type Severity Reaction Status Date / Time lisinopril Allergy Cough Verified 12/27/21 00:01 Consultations 12/27/21 01:34 ED Decision to Admit Stat Procedures Performed Laboratory Results WBC 1.76 K/ul (4.8-10.8) L 01/02/22 06:50 RBC 3.11 M/uL (3.93-5.22) L 01/02/22 06:50 Hgb 9.8 g/dl (12.0-16.0) L 01/02/22 06:50 Hct 28.7 % (34.1-44.9) L 01/02/22 06:50 MCV 92.3 fL (80.0-100.0) 01/02/22 06:50 MCH 31.5 pg (25.0-34.0) 01/02/22 06:50 MCHC 34.1 g/dL (32.0-36.0) 01/02/22 06:50 RDW Std Deviation 44.3 fL (36.4-46.3) 01/02/22 06:50 RDW Coeff of Nevaeh 13.1 % (11.5-14.5) 01/02/22 06:50 Plt Count 61 K/uL (130-400) L 01/02/22 06:50 MPV 11.0 fL (9.4-12.3) 01/02/22 06:50 Immature Gran % (Auto) 1.1 % 01/02/22 06:50 Neut % (Auto) 17.6 % 01/02/22 06:50 Lymph % (Auto) 66.5 % 01/02/22 06:50 Traill % (Auto) 14.2 % 01/02/22 06:50 Eos % (Auto) 0.6 % 01/02/22 06:50 Baso % (Auto) 0.0 % 01/02/22 06:50 Neut # (Auto) 0.31 K/uL (1.4-6.5) L* 01/02/22 06:50 Lymph # (Auto) 1.17 K/uL (1.2-3.4) L 01/02/22 06:50 Traill # (Auto) 0.25 K/uL (0.24-0.82) 01/02/22 06:50 Eos # (Auto) 0.01 K/uL (0-0.50) 01/02/22 06:50 Baso # (Auto) 0.00 K/uL (0-0.2) 01/02/22 06:50 Immature Gran # (Auto) 0.02 K/uL (0.00-0.02) 01/02/22 06:50 Platelet Estimate Decreased (Normal) L 12/27/21 00:00 Peripher Smr Path Cons 01/01/22 08:34 PT 12.3 Seconds (9.0-12.0) H 12/27/21 00:00 INR 1.2 (0.9-1.1) H 12/27/21 00:00 APTT 30.0 Seconds (21.0-31.0) 12/27/21 00:00 PTT Ratio 1.1 12/27/21 00:00 Sodium 138 mmol/L (136-145) 01/02/22 06:50 Potassium 4.2 mmol/L (3.5-5.1) 01/02/22 06:50 Chloride 104 mmol/L (98-107) 01/02/22 06:50 Carbon Dioxide 24 mmol/L (21-32) 01/02/22 06:50 Anion Gap 10 (3-11) 01/02/22 06:50 BUN 89 mg/dl (6-23) H 01/02/22 06:50 Creatinine 1.76 mg/dl (0.6-1.2) H 01/02/22 06:50 Est Cr Clr Drug Dosing 26.0 ml/min 01/02/22 06:50 Est GFR ( Amer) 32.9 ml/min 01/02/22 06:50 Est GFR (Non-Af Amer) 28.4 ml/min 01/02/22 06:50 BUN/Creatinine Ratio 50.6 (10-20) H 01/02/22 06:50 Glucose 124 mg/dl (70-99(Fasting)) H 01/02/22 06:50 POC Glucose 193 mg/dl (70-99) H 01/02/22 11:42 Estimat Average Glucose 169 mg/dl 12/27/21 06:41 Hemoglobin A1c 7.5 % (4.5-5.6) H 12/27/21 06:41 Calcium 8.2 mg/dl (8.5-10.1) L 01/02/22 06:50 Magnesium 2.1 mg/dl (1.7-2.4) 12/30/21 06:43 Total Bilirubin 0.4 mg/dl (0.2-1.0) 12/27/21 00:00 AST 39 U/L (13-39) 12/27/21 00:00 ALT 36 U/L (7-52) 12/27/21 00:00 Alkaline Phosphatase 51 U/L (34-104) 12/27/21 00:00 Total Creatine Kinase 49 U/L (26-192) 12/27/21 00:00 Troponin I High Sens 19.1 pg/ml (0-14) H 12/27/21 00:00 B-Natriuretic Peptide 781 pg/ml (0-100) H 12/27/21 00:00 Total Protein 8.2 gm/dl (6.0-8.3) 12/27/21 00:00 Albumin 4.4 gm/dl (3.4-5.0) 12/27/21 00:00 Globulin 3.8 gm/dl (2.5-4.0) 12/27/21 00:00 Albumin/Globulin Ratio 1.2 (0.9-2) 12/27/21 00:00 Lipase 398 U/L (11-82) H 12/27/21 06:41 Urine Color Yellow 12/27/21 00:27 Urine Appearance Clear (Clear) 12/27/21 00:27 Urine pH 5.0 (4.5-7.5) 12/27/21 00:27 Ur Specific Slayden 1.011 (1.000-1.030) 12/27/21 00:27 Urine Protein Trace (Negative) H 12/27/21 00:27 Urine Glucose (UA) Negative (Negative) 12/27/21 00:27 Urine Ketones Negative (Negative) 12/27/21 00:27 Urine Blood Trace (Negative) H 12/27/21 00:27 Urine Nitrite Negative (Negative) 12/27/21 00:27 Urine Bilirubin Negative (Negative) 12/27/21 00:27 Urine Urobilinogen Negative (Negative) 12/27/21 00:27 Ur Leukocyte Esterase 3+ (Negative) H 12/27/21 00:27 Urine WBC (Auto) >30 /hpf (0-5) H 12/27/21 00:27 Urine RBC (Auto) 0-4 /hpf (0-4) 12/27/21 00:27 U Hyaline Cast (Auto) 1-5 /lpf (0-5) 12/27/21 00:27 U Epithel Cells (Auto) 0-5 /lpf (0-5) 12/27/21 00:27 Urine Bacteria (Auto) 4+ (Negative) H 12/27/21 00:27 SARS-CoV-2, RNA, NAAT NEGATIVE (NEGATIVE) 12/27/21 00:27 Impressions Chest X-Ray 12/26/21 23:08 SINGLE VIEW CHEST CLINICAL HISTORY: Dyspnea. FINDINGS: An AP, portable, upright chest radiograph is compared to study dated 03/22/2021. A cardiac AICD partially obscures the right mid chest. The heart is enlarged. Atherosclerotic calcification of the thoracic aorta. The pulmonary vasculature is noncongested. Chronic interstitial thickening is similar to previous. Scarring/atelectasis is noted at the lung bases. The lungs and pleural spaces are otherwise clear. No pneumothorax is seen. The skeletal structures are osteopenic. The bony thorax is grossly intact. IMPRESSION: 1. Cardiomegaly and AICD without radiographic evidence of congestive failure. 2. No airspace consolidation or large pleural effusion is identified. ACT 112: Negative or not required by law. Electronically signed by: Nicolas Wang M.D. 12/27/2021 9:53 AM Abdomen/Pelvis CT 12/26/21 23:23 CT SCAN OF THE ABDOMEN AND PELVIS WITHOUT IV CONTRAST CLINICAL HISTORY: Generalized abdominal pain. Back pain. Generalized weakness. COMPARISON STUDY: Abdominal CT dated 04/27/2019. TECHNIQUE: CT scan of the abdomen and pelvis is performed from the lung bases to the proximal femora. Images are reviewed in the axial, sagittal, and coronal planes. IV contrast was not administered for this examination. Note that the examination was performed in suboptimal fashion without oral and IV contrast. There is motion artifact, as well as streak artifact from the arms which could not be elevated above the abdomen. A dose lowering technique was utilized adhering to the principles of ALARA. FINDINGS: Lung bases: The heart is enlarged and without pericardial effusion. Pacemaker leads are noted. Evaluation of the lung bases is significantly motion degraded. The lung bases are grossly clear noting dependent atelectasis. Liver: Evaluation of the liver is degraded by streak artifact. The unenhanced liver is normal in size, contour, and attenuation. There is no intrahepatic biliary ductal dilatation. Gallbladder: Contracted. Spleen: Normal in size and attenuation. Pancreas: The unenhanced pancreas is mildly atrophic and grossly unremarkable. Adrenal glands: Unremarkable. Kidneys: The unenhanced kidneys demonstrate mild cortical atrophy and are without hydronephrosis. There are no renal calculi identified. There is no evidence of contour deforming renal mass lesion. Abdominal vasculature: The abdominal aorta is normal in course and caliber noting moderate atherosclerotic calcification. Bowel: There is moderate colonic fecal retention. No bowel obstruction is seen. The appendix is not visualized. Peritoneum: There is no intraperitoneal free air or abdominal ascites. There is a small fat-containing umbilical hernia. Lymphadenopathy: None. Pelvic viscera: The bladder wall appears circumferentially thickened. The uterus and adnexa are normal as visualized. Skeletal structures: The skeletal structures are osteopenic. There is a chronic superior endplate compression deformity of T12. Mild to moderate lumbosacral spondylosis is observed. No lytic or blastic lesions are seen. IMPRESSION: 1. Suboptimal examination without oral and IV contrast. There is also streak and motion artifact. 2. The bladder wall appears circumferentially thickened. Correlate with clinical findings and urinalysis. 3. [id number] colonic fecal retention. 4. Cardiomegaly and cardiac pacemaker. 5. Additional findings as above. ACT 112: Negative or not required by law. Electronically signed by: Nicolas Wang M.D. 12/27/2021 10:[address] 12/27/21 00:27 CT SCAN OF THE BRAIN WITHOUT IV CONTRAST CLINICAL HISTORY: Falls. COMPARISON STUDY: CT of the brain dated 03/22/2021. TECHNIQUE: Unenhanced axial CT scan of the brain is performed from the vertex to the skull base. A dose lowering technique was utilized adhering to the principles of ALARA. The patient was scanned twice due to motion artifact. The examination is motion degraded. CT DOSE: 1409.79 mGy.cm FINDINGS: Brain parenchyma: There is age-related involutional change noting [id number] subcortical and periventricular microangiopathic disease. There is no hemorrhage, mass effect, or evidence of acute territorial ischemia by CT criteria. Espinoza-white matter differentiation is preserved. No extra-axial fluid collection is seen. Ventricles, sulci, cisterns: Prominent secondary to involutional change. Intracranial vasculature: There is atherosclerotic calcification of the cavernou s carotid arteries. Calvarium: The skeletal structures are osteopenic. No depressed calvarial fracture is seen. Sinuses and mastoids: The visualized paranasal sinuses are clear. The mastoid air cells are well pneumatized. Orbits: The bony orbits are grossly intact. There are bilateral ocular lens implants. IMPRESSION: There is no hemorrhage, mass effect, or evidence of acute territorial ischemia by CT criteria. ACT 112: Negative or not required by law. Electronically signed by: Nicolas Wang M.D. 12/27/2021 7:18 AM Lumbar Spine X-Ray 12/28/21 16:12 XR lumbar spine 2-3V CLINICAL HISTORY: Back pain. COMPARISON STUDY: CT of the abdomen and pelvis December 27, 2021. FINDINGS: Old moderate T12 compression deformity is present. No acute lumbar spine fracture is present. Slight loss of height of the superior endplate of L3 is chronic and likely degenerative. There are no suspicious osseous lesions. Moderate multilevel facet arthrosis is present. Disc spaces are preserved. There is mild endplate osteophytosis at several levels. IMPRESSION: 1. No acute lumbar spine fracture or subluxation. 2. Moderate multilevel facet arthrosis and mild degenerative disc disease within the lumbar spine. ACT 112: Negative or not required by law. Electronically signed by: Josr Gaines M.D. 12/28/2021 5:14 PM KUB X-Ray 12/31/21 11:11 KUB CLINICAL HISTORY: Generalized abdominal pain. FINDINGS: 2 AP supine abdominal radiographs are correlated with abdominal CT dated 12/27/2021. There is a nonobstructed abdominal bowel gas pattern. Fecal retention is noted in the rectosigmoid. No evidence of intraperitoneal free air is seen on these supine images. There are no abnormal abdominal calcifications. The skeletal structures are osteopenic and appear intact. The heart is enlarged and an AICD is in place. The lung bases are clear as imaged. IMPRESSION: No acute abnormality is identified. Electronically signed by: Nicolas Wang M.D. 12/31/2021 11:51 AM Ordered Studies 12/26/21 23:23 CT abd pelvis wo con Stat 12/27/21 00:27 CT head/brain wo con Stat Hospital Course (1) Falls frequently: Patient is a 71 yr female who presents with frequent falls and confusion. Acute Metabolic Encephalopathy Likely due to UTI -CT Head:There is no hemorrhage, mass effect, or evidence of acute territorial ischemia by CT criteria. -CT ABD:The bladder wall appears circumferentially thickened. Correlate with clinical findings and urinalysis. Urine culture growing Klebsiella Continue Rocephin>> transitioned to cefdinir to complete the course. Pancytopenia Chronic thrombocytopenia as per records Peripheral smear: Nonspecific pancytopenia. No more changes of myelodysplasia or hemolysis Monitor platelets, neutrophils No bleeding issues currently Neutropenic precautions Needs follow-up with hematology as outpatient Thrombocytopenia slowly improving Chronic Lumbago Lumbar X ray:No acute lumbar spine fracture or subluxation.Moderate multilevel facet arthrosis and mild degenerative disc disease within the lumbar spine. Continue PT/OT: Needs Rehab Frequent falls Likely secondary to above PT OT:Needs 2 person assist Fall precautions Rehab as able Nocturnal hypoxia Uses supplemental oxygen at bedtime at baseline Mild dementia Monitor for delirium Chronic systolic congestive heart failure: Monitor aortic stenosis ECHO Mar 2020 shows 20%. Continue Lasix, metoprolol Monitor volume status Pancytopenia: Anemia of chronic kidney disease Monitor CBC Follow-up as outpatient CKD IV Cr at baseline Monitor renal function Avoid nephrotoxic agents as able DM II HbA1c 7.1 Continue insulin Monitor BGs Adjust Insulin as needed Hypertension: Continue metoprolol Depression, generalized anxiety disorder: On Zoloft Hyperlipidemia: On statin. DVT Px: SCDs for now Re Thrombocytopenia CODE STATUS Full code Disposition SNF Total Time Total Time Spent Total Time Spent (In Minutes): 50 minutes Discharge Plan Discharge Items Patient Disposition: Transfer [facility] Reason For Visit: FALLS Discharge Diagnosis: Acute Metabolic Encephalopathy Urinary tract infection Pancytopenia Frequent falls CKD IV Nocturnal Hypoxia Activity: Per Instructions section Exercise/Sports: Gradually increase as tolerated Non-emergency contact: Primary Care Provider Call non-emergency contact if: you have any medication questions, your symptoms worsen, your pain is concerning for you and you have a fever Follow-up/Referrals: Melissa Tovar MD [Primary Care Provider] - Diet: Carb Consistent or DM2 and Heart Healthy Diet Texture: Easy to Chew Addtl Attending Provider Instructions: Follow-up with your primary care physician Dr. Michael Martinez in 1 week upon discharge from rehab facility Follow-up with your oncologist for further evaluation of low blood cell counts. ---Get blood work (complete blood count with differential) in 1 week and follow- up with your primary care physician for further recommendations. --- Use 2 L of supplemental oxygen at bedtime --Seek immediate medical attention if your symptoms reoccur or worsen Please take all medications as instructed on discharge list below. Please call if you have any questions or problems. You can reach a [facility] hospitalist on duty at [facility] 24 hours a day by calling [phone] Pending Studies at Discharge: No Stand-Alone Forms: My [facility] Skilled Items Patient informed of condition?: Yes DNR: No Discharge Level of Care: Skilled Communicable Disease: No Discharge Prognosis: Stable Lines: None Urinary Catheter: No Medications and DC Order Prescriptions: New polyethylene glycol 3350 [Miralax] 17 gram Powder In Packet 17 g PO DAILY PRN (Reason: constipation) Qty: 30 0RF rosuvastatin [Crestor] 20 mg Tablet 20 mg PO QAM Qty: 30 0RF Continued sertraline 100 mg Tablet 150 mg PO HS insulin glargine [Basaglar KwikPen U-100 Insulin] 100 unit/mL (3 mL) Insulin Pen 16 unit SUBCUT HS gabapentin 100 mg capsule 100 mg PO QAM aspirin [Ecotrin Low Strength] 81 mg Tablet,Delayed Release (Dr/Ec) 81 mg PO QAM Qty: 30 0RF nitroglycerin [Nitrostat] 0.4 mg Tablet, Sublingual 0.4 mg sublingual UD PRN (Reason: chest pain) Qty: 5 0RF acetaminophen 325 mg Tablet 650 mg PO Q4H PRN (Reason: Fever/pain) metoprolol succinate 50 mg tablet extended release 24 hr 50 mg PO BID Victoza 3-Jaime 0.6 mg/0.1 mL (18 mg/3 mL) pen injector 1.8 mg SUBCUT HS furosemide 40 mg tablet 40 mg PO [id number] Rx Instructions: take in morning of saturday,saturday,fridays Discharge Orders: Discharge Order (Routine); Ordered 01/02/22 Ordered By: Ruiz Montesinos/Other Patient Handouts: High Blood Sugar (Hyperglycemia), Hypoglycemia (Low Blood Sugar), Managing Type 2 Diabetes, Diabetes: Meal Planning Admission Data Admit Date/Time: 12/27/21 03:27 Attending Provider: Ruiz Penn Admit Provider: Temo Mai Primary Care Provider: Melissa Tovar Other Providers: Temo Mai ; [facility]
[2022-01-02] MEDS: ACETAMINOPHEN 325 MG TAB PO PRN (16:44)
[2022-01-02] MEDS ORDERED: LANTUS PER UNIT CHARGE SQ SCH (21:00)
== END 2022-01-02 17:47 | DRG 689 ==
LOC: ED 22:19 → SUATTDRO 12-27 03:27 → 2N 12-27 03:27
DX: R74.8 Abnormal levels of other serum enzymes; E78.5 Hyperlipidemia, unspecified; I50.22 Chronic systolic (congestive) heart failure; B96.1 Klebsiella pneumoniae [K. pneumoniae] as the cause of diseases classified elsewhere; N18.4 Chronic kidney disease, stage 4 (severe); F33.40 Major depressive disorder, recurrent, in remission, unspecified; Z79.899 Other long term (current) drug therapy; I35.0 Nonrheumatic aortic (valve) stenosis; E11.22 Type 2 diabetes mellitus with diabetic chronic kidney disease; E11.65 Type 2 diabetes mellitus with hyperglycemia; G93.41 Metabolic encephalopathy; D63.1 Anemia in chronic kidney disease; Z79.84 Long term (current) use of oral hypoglycemic drugs; D61.818 Other pancytopenia; F41.1 Generalized anxiety disorder; I25.2 Old myocardial infarction; R29.6 Repeated falls; G47.34 Idiopathic sleep related nonobstructive alveolar hypoventilation; I13.0 Hypertensive heart and chronic kidney disease with heart failure and stage 1 through stage 4 chronic kidney disease, or unspecified chronic kidney disease; M47.816 Spondylosis without myelopathy or radiculopathy, lumbar region; Z79.82 Long term (current) use of aspirin; Z95.810 Presence of automatic (implantable) cardiac defibrillator; F03.90 Unspecified dementia, unspecified severity, without behavioral disturbance, psychotic disturbance, mood disturbance, and anxiety; Z79.4 Long term (current) use of insulin; Z88.8 Allergy status to other drugs, medicaments and biological substances; N39.0 Urinary tract infection, site not specified

== ENCOUNTER 2022-03-07 15:53 | Inpatient (IN) ==
--- NOTE | 2022-03-07 16:11 | ED Triage Note ---
Date of Service March 07, 2022 History of Present Illness This patient was briefly evaluated while in triage. An abbreviated physical exam was performed. This patient is a 71-year-old Female with past medical history of HTN, ischemic cardiomyopathy, CKD who presents to the ED for evaluation of weakness. Pt. is having difficulty with pain and weakness in the RLE making it difficult to ambulate. She feels that the leg is not holding her well. Pt. reports increasing weakness and "I feel terrible" for the past week or so. Pt. noticed red dots on the tab LE. Physical Exam VITALS: Vitals are noted on the nurse's note and reviewed by myself. GENERAL: This is a 71 year old female, in no acute distress, nondiaphoretic, well-developed well-nourished. SKIN: No obvious rashes, edema, erythema HEAD: Normocephalic atraumatic. EYES: Conjunctivae without injection, sclerae without icterus. NECK: No JVD. LUNGS: No retractions or accessory muscle use. MUSCULOSKELETAL: Normal gait with a walker NEURO: Patient was alert and oriented to person place and time. No focal neurological deficits. Initial orders for labs and / or imaging were placed and patient was placed in the waiting area until a bed is available. Please see further documentation for the full ED course.
[2022-03-07 16:46] LABS: Hematocrit (blood only) 32.2 % (34.1-44.9); Hemoglobin 10.7 g/dl (12.0-16.0); Mean Corpuscular Hemoglobin 32.5 pg (25.0-34.0); Mean Corpuscular Hgb Conc 33.2 g/dL (32.0-36.0); Mean Corpuscular Volume 97.9 fL (80.0-100.0); Mean Platelet Volume 10.9 fL (9.4-12.3); Platelet Count 70 K/uL (130-400); RDW Coefficient of Variation 13.2 % (11.5-14.5); RDW Standard Deviation 47.4 fL (36.4-46.3); Red Blood Count 3.29 M/uL (3.93-5.22); White Blood Count 4.51 K/ul (4.8-10.8)
--- NOTE | 2022-03-07 16:54 | XRay Report ---
XR chest 1V portable CLINICAL HISTORY: weakness TECHNIQUE: Single frontal radiograph of the chest was obtained. Comparison: Comparison is made to chest radiograph 01/19/2022 FINDINGS: No lines and tubes are seen. Calcified aortic knob is seen. The lungs are clear. No evidence of pleur al effusion or pneumothorax. IMPRESSION: No acute chest disease. ACT 112: Negative or not required by law. Electronically signed by: Gerber Ramos M.D. 03/07/2022 4:52 PM
[2022-03-07 16:55] LABS: INR 1.1 (0.9-1.1); Partial Thromboplastin Time 27.8 Seconds (21.0-31.0); Prothrombin Time 11.5 Seconds (9.0-12.0)
[2022-03-07 17:00] LABS: Eosinophils # (auto) 0.02 K/uL (0-0.50); Eosinophils % (auto) 0.4 %; Immature Granulocytes # (auto) 0.06 K/uL (0.00-0.02); Immature Granulocytes % (auto) 1.3 %; Lymphocytes # (auto) 1.45 K/uL (1.2-3.4); Lymphocytes % (auto) 32.2 %; Monocytes # (auto) 0.46 K/uL (0.24-0.82); Monocytes % (auto) 10.2 %; Neutrophils # (auto) 2.52 K/uL (1.4-6.5); Neutrophils % (auto) 55.9 %
[2022-03-07 17:04] LABS: Alanine Aminotransferase 12 U/L (7-52); Albumin Globulin Ratio 1.1 (0.9-2); Albumin Level 4.3 gm/dl (3.4-5.0); Alkaline Phosphatase 60 U/L (34-104); Anion Gap 7 (3-11); Aspartate Aminotransferase 19 U/L (13-39); BUN Creatinine Ratio 42.6 (10-20); Bilirubin,Total 0.4 mg/dl (0.2-1.0); Blood Urea Nitrogen 83 mg/dl (6-23); Calcium 9.6 mg/dl (8.5-10.1); Carbon Dioxide 28 mmol/L (21-32); Chloride 102 mmol/L (98-107); Est GFR (African American) 29.1 ml/min; Est GFR (Non-African American) 25.1 ml/min; Glucose 205 mg/dl (70-99(Fasting)); Magnesium 2.5 mg/dl (1.7-2.4); Potassium 4.8 mmol/L (3.5-5.1); Sodium 137 mmol/L (136-145); Total Protein 8.3 gm/dl (6.0-8.3)
--- NOTE | 2022-03-07 17:58 | Emergency Department Note ---
Impression & Plan Acute UTI, Weakness, Contusion of hip, Ambulatory dysfunction ED Provider Note NAME: MONET FREY AGE: 71 SEX: F : 1950 ARRIVES VIA: Walk-In INFORMANT: Patient ED PROVIDER(S): Eliseo Randall DO CHIEF COMPLAINT: right hip pain and urinary symptoms HPI: Patient is a 71-year-old female with a past medical history of hypertension, arthritis, ischemic cardiomyopathy, thrombocytopenia, CHF, ICD, heart failure, diabetes presents the ER for right hip pain. She notes that she fell about 5 days ago. Since then she has been having right hip pain. He denie s any head or neck pain. She did not hit her head. No chest pain or shortness of breath. No belly pain, nausea, vomiting, or diarrhea. No dysuria, urgency, or frequency. No other exacerbating or remitting factors. She denies any true weakness but has severe pain. No numbness. She has been able to walk or get around since this. ROS: See above HPI for pertinent positives & negatives. A total of 10 systems reviewed and were otherwise negative. PAST MEDICAL HISTORY:See Below PAST SURGICAL HISTORY:See Below FAMILY HISTORY:See Below SOCIAL HISTORY:See Below HOME MEDICATIONS:See Below ALLERGIES:See Below VITALS:See Below PHYSICAL EXAMINATION: GENERAL: Sitting up in bed, alert, well appearing, well nourished, no distress, non-toxic HEAD: NC/AT EYE EXAM: normal conjunctiva. OROPHARYNX: no exudate, no erythema, lips, buccal mucosa, and tongue normal and mucous membranes are moist NECK: supple, no nuchal rigidity, no adenopathy, non-tender LUNGS: Clear to auscultation. Normal chest wall mechanics HEART: no murmurs, S1 normal and S2 normal ABDOMEN: abdomen soft, non-tender, normo-active bowel sounds, no masses, no rebound or guarding. BACK: Back is symmetrical on inspection and there is no deformity, no midline tenderness, no CVA tenderness. SKIN: no rashes and no bruising UPPER EXTREMITIES: upper extremities are grossly normal. LOWER EXTREMITIES: Flexion-extension right hip knee and ankle intact but significant pain with flexion extension of the right hip. Bruising over the right thigh NEURO EXAM: Normal sensorium, cranial nerves II-XII grossly intact, normal speech, no gross weakness of arms, no gross weakness of legs. MEDICAL DECISION MAKING: Patient is a 71-year-old female that presents ER for right hip pain. She has been unable to walk since falling around Thanksgiving. She also admits to dysuria with urination. IV was established blood work was obtained. Labs show mild leukopenia at 4.5. Mild anemia 10. INR unremarkable. BMP with a creatinine of 1.9 which is fairly consistent with her baseline. LFTs and TSH were unremarkable. UA does suggest a clear UTI. Patient was given IV Rocephin. COVID was negative. X-rays of the hip pelvis and CT of the leg showed no acute fracture. Patient and family were updated bedside. Discussed with the hospitalist as she will likely need placement. Triage Nursing notes reviewed. Limited review of prior medical records performed Vital Signs: reviewed and remarkable for no significant abnormalities Differential diagnosis: Differential diagnoses include major intracranial, cervical, spinal, thoracic, abdominal, pelvic and neurologic injury. Fracture, contusion, sprain, strain, laceration, abrasions included as well. ER treatment provided: See below Diagnostics interpreted by me: ECG: Sinus rhythm rate 91 T wave inversion in the inferior and high lateral leads with ST depressions in the inferior leads lateral leads Cardiac Monitoring: An order was placed for continuous cardiac monitoring. The monitor shows a rate of 90 with sinus rhythm. Laboratory studies: As stated above and show below. Imaging studies: CT and x-rays of the right hip were unremarkable Consultation(s): Discussed with Dr. Nuñez for further evaluation. Procedures: none Critical Care: None Past Med/Surg History Medical History Anemia Anxiety and depression Aortic stenosis Chronic renal disease, stage IV Chronic systolic heart failure Dementia DM II (diabetes mellitus, type II), controlled GERD (gastroesophageal reflux disease) Hyperkalemia Hyperlipidemia LDL goal <70 Hypertension Moderate mitral regurgitation NSTEMI (non-ST elevated myocardial infarction) 2014?--follows with Dr. Charles Sensorineural hearing loss (SNHL) of both ears Surgical History AICD (automatic cardioverter/defibrillator) present 2017--meditronic @ [facility] History of appendectomy History of bilateral cataract extraction History of open reduction and internal fixation (ORIF) procedure ankle fx---hardware in place History of tubal ligation Status post cholecystectomy Family History Mother Family history of diabetes mellitus Brother Family history of diabetes mellitus Sister Family history of diabetes mellitus Other No family history of adverse response to anesthesia Social History Smoking Status: Never smoker Second Hand Exposure: No; Hx Alcohol Use: No Hx Substance Use: No Preferred Language: Malagasy Communication Ability: Effective 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 marital status: / Current Living Situation: Family Current Living Situation Comment: lives in renovated garage by son,Yousuf Frey who is a securities and real estate director per pt How many Children do You have: 4 Feels Safe at Home: Yes Assistive Devices: Walker Allergies Allergies Allergy/AdvReac Type Severity Reaction Status Date / Time lisinopril Allergy Cough Verified 01/19/22 16:51 Home Meds Home Medications Medication Instructions Recorded Confirmed gabapentin 100 mg capsule 100 mg PO QAM 02/04/19 03/07/22 acetaminophen 325 mg tablet 650 mg PO Q4H PRN Fever/pain 03/04/19 03/07/22 metoprolol succinate 50 mg 50 mg PO BID 03/04/19 03/07/22 tablet,extended release 24 hr insulin glargine 100 unit/mL (3 15 unit subcut HS 09/08/19 03/07/22 mL) subcutaneous pen (Basaglar KwikPen U-100 Insulin) sertraline 100 mg tablet 100 mg PO HS 09/08/19 03/07/22 liraglutide 0.6 mg/0.1 mL (18 mg/3 1.8 mg subcut HS 12/26/21 03/07/22 mL) subcutaneous pen injector (Victoza 3-Jaime) furosemide 40 mg tablet 40 mg PO 3XWK 12/27/21 03/07/22 ketoconazole 2 % shampoo 1 applic topical UD 01/19/22 03/07/22 cholecalciferol (vitamin D3) 25 25 mcg PO DAILY 03/07/22 03/07/22 mcg (1,000 unit) tablet (Vitamin D3) mirtazapine 15 mg tablet 7.5 mg PO HS 03/07/22 03/07/22 Previous Rx's Medication Instructions Recorded aspirin 81 mg tablet,delayed 81 mg PO QAM #30 tabs 02/11/19 release (Ecotrin Low Strength) nitroglycerin 0.4 mg sublingual 0.4 mg sublingual UD PRN chest 02/11/19 tablet (Nitrostat) pain #5 tabs rosuvastatin 20 mg tablet (Crestor) 20 mg PO QAM #30 tabs 01/02/22 Results & Data (ED) Vital Signs Vital Signs - 24 hr 03/07/22 16:09 03/07/22 17:47 03/07/22 17:53 Temperature 36.4 C L Temperature Source Temporal Artery Scan Pulse Rate 94 H Pulse Rate [Finger] 98 H Pulse Rhythm Regular Pulse Strength Normal Respiratory Rate 18 18 Respiratory Effort / Characteristics Non-Labored Spontaneous Respiratory Depth Normal Respiratory Pattern Regular Blood Pressure 103/61 Blood Pressure [Right Arm] 124/64 Blood Pressure Mean 75 Blood Pressure Mean [Right Arm] 84 Blood Pressure Position Sitting Pulse Oximetry 98 98 100 Oxygen Delivery Method Room Air Room Air Sepsis Recent Fever Within 48 Hours No Sepsis New/Unexplained Change in Mental Status No Sepsis Action Taken by Nursing No Action Required 03/07/22 19:27 Temperature Temperature Source Pulse Rate Pulse Rate [Finger] 97 H Pulse Rhythm Pulse Strength Respiratory Rate 18 Respiratory Effort / Characteristics Non-Labored Spontaneous Respiratory Depth Normal Respiratory Pattern Regular Blood Pressure Blood Pressure [Right Arm] 129/87 Blood Pressure Mean Blood Pressure Mean [Right Arm] 101 Blood Pressure Position Pulse Oximetry 100 Oxygen Delivery Method Room Air Sepsis Recent Fever Within 48 Hours Sepsis New/Unexplained Change in Mental Status Sepsis Action Taken by Nursing Laboratory Data Result diagrams: 03/07/22 16:28 03/07/22 16:28 Lab Results 03/07/22 03/07/22 03/07/22 Range/Units 16:28 16:28 16:28 WBC 4.51 L (4.8-10.8) K/ul RBC 3.29 L (3.93-5.22) M/uL Hgb 10.7 L (12.0-16.0) g/dl Hct 32.2 L (34.1-44.9) % MCV 97.9 (80.0-100.0) fL MCH 32.5 (25.0-34.0) pg MCHC 33.2 (32.0-36.0) g/dL RDW Std Deviation 47.4 H (36.4-46.3) fL RDW Coeff of Nevaeh 13.2 (11.5-14.5) % Plt Count 70 L (130-400) K/uL MPV 10.9 (9.4-12.3) fL Immature Gran % (Auto) 1.3 % Neut % (Auto) 55.9 % Lymph % (Auto) 32.2 % [place] % (Auto) 10.2 % Eos % (Auto) 0.4 % Baso % (Auto) 0.0 % Neut # (Auto) 2.52 (1.4-6.5) K/uL Lymph # (Auto) 1.45 (1.2-3.4) K/uL [place] # (Auto) 0.46 (0.24-0.82) K/uL Eos # (Auto) 0.02 (0-0.50) K/uL Baso # (Auto) 0.00 (0-0.2) K/uL Immature Gran # (Auto) 0.06 H (0.00-0.02) K/uL PT 11.5 (9.0-12.0) Seconds INR 1.1 (0.9-1.1) APTT 27.8 (21.0-31.0) Seconds PTT Ratio 1.0 Sodium 137 (136-145) mmol/L Potassium 4.8 (3.5-5.1) mmol/L Chloride 102 (98-107) mmol/L Carbon Dioxide 28 (21-32) mmol/L Anion Gap 7 (3-11) BUN 83 H (6-23) mg/dl Creatinine 1.95 H (0.6-1.2) mg/dl Est Cr Clr Drug Dosing Not Reportable Est GFR ( Amer) 29.1 ml/min Est GFR (Non-Af Amer) 25.1 ml/min BUN/Creatinine Ratio 42.6 H (10-20) Glucose 205 H (70-99(Fasting)) mg/dl Calcium 9.6 (8.5-10.1) mg/dl Magnesium 2.5 H (1.7-2.4) mg/dl Total Bilirubin 0.4 (0.2-1.0) mg/dl AST 19 (13-39) U/L ALT 12 (7-52) U/L Alkaline Phosphatase 60 (34-104) U/L Total Protein 8.3 (6.0-8.3) gm/dl Albumin 4.3 (3.4-5.0) gm/dl Globulin 4.0 (2.5-4.0) gm/dl Albumin/Globulin Ratio 1.1 (0.9-2) TSH (0.300-4.500) uIu/ml Urine Color Urine Appearance (Clear) Urine pH (4.5-7.5) Ur Specific [place] (1.000-1.030) Urine Protein (Negative) Urine Glucose (UA) (Negative) Urine Ketones (Negative) Urine Blood (Negative) Urine Nitrite (Negative) Urine Bilirubin (Negative) Urine Urobilinogen (Negative) Ur Leukocyte Esterase (Negative) Urine WBC (Auto) (0-5) /hpf Urine RBC (Auto) (0-4) /hpf U Hyaline Cast (Auto) (0-5) /lpf U Epithel Cells (Auto) (0-5) /lpf Urine Bacteria (Auto) (Negative) SARS-CoV-2, RNA, NAAT (NEGATIVE) 03/07/22 03/07/22 03/07/22 Range/Units 16:28 17:46 18:51 WBC (4.8-10.8) K/ul RBC (3.93-5.22) M/uL Hgb (12.0-16.0) g/dl Hct (34.1-44.9) % MCV (80.0-100.0) fL MCH (25.0-34.0) pg MCHC (32.0-36.0) g/dL RDW Std Deviation (36.4-46.3) fL RDW Coeff of Nevaeh (11.5-14.5) % Plt Count (130-400) K/uL MPV (9.4-12.3) fL Immature Gran % (Auto) % Neut % (Auto) % Lymph % (Auto) % [place] % (Auto) % Eos % (Auto) % Baso % (Auto) % Neut # (Auto) (1.4-6.5) K/uL Lymph # (Auto) (1.2-3.4) K/uL [place] # (Auto) (0.24-0.82) K/uL Eos # (Auto) (0-0.50) K/uL Baso # (Auto) (0-0.2) K/uL Immature Gran # (Auto) (0.00-0.02) K/uL PT (9.0-12.0) Seconds INR (0.9-1.1) APTT (21.0-31.0) Seconds PTT Ratio Sodium (136-145) mmol/L Potassium (3.5-5.1) mmol/L Chloride (98-107) mmol/L Carbon Dioxide (21-32) mmol/L Anion Gap (3-11) BUN (6-23) mg/dl Creatinine (0.6-1.2) mg/dl Est Cr Clr Drug Dosing Est GFR ( Amer) ml/min Est GFR (Non-Af Amer) ml/min BUN/Creatinine Ratio (10-20) Glucose (70-99(Fasting)) mg/dl Calcium (8.5-10.1) mg/dl Magnesium (1.7-2.4) mg/dl Total Bilirubin (0.2-1.0) mg/dl AST (13-39) U/L ALT (7-52) U/L Alkaline Phosphatase (34-104) U/L Total Protein (6.0-8.3) gm/dl Albumin (3.4-5.0) gm/dl Globulin (2.5-4.0) gm/dl Albumin/Globulin Ratio (0.9-2) TSH 1.358 (0.300-4.500) uIu/ml Urine Color Yellow Urine Appearance Clear (Clear) Urine pH 5.0 (4.5-7.5) Ur Specific [place] 1.010 (1.000-1.030) Urine Protein Negative (Negative) Urine Glucose (UA) Negative (Negative) Urine Ketones Negative (Negative) Urine Blood Trace H (Negative) Urine Nitrite Negative (Negative) Urine Bilirubin Negative (Negative) Urine Urobilinogen Negative (Negative) Ur Leukocyte Esterase 3+ H (Negative) Urine WBC (Auto) >30 H (0-5) /hpf Urine RBC (Auto) 0-4 (0-4) /hpf U Hyaline Cast (Auto) 1-5 (0-5) /lpf U Epithel Cells (Auto) 5-10 H (0-5) /lpf Urine Bacteria (Auto) 2+ H (Negative) SARS-CoV-2, RNA, NAAT NEGATIVE (NEGATIVE) Administered Medications Discontinued Medications Sodium Chloride (Nss) 500 mls @ 999 mls/hr IV .Q31M ONE Stop: 03/07/22 18:37 Last Admin: 03/07/22 18:22 Dose: 999 mls/hr Documented By: DURAN Ceftriaxone Sodium (Rocephin) 2,000 mg in 70 mls @ 140 mls/hr IV NOW STA Stop: 03/07/22 22:17 Last Admin: 03/07/22 23:02 Dose: 140 mls/hr Documented By: BRITNEY Morphine Sulfate (Morphine Sulfate 4 Mg/Ml 1 Ml Carp\Vial) 4 mg IV NOW STA Stop: 03/07/22 18:08 Last Admin: 03/07/22 18:22 Dose: 4 mg Documented By: DURAN Ondansetron HCl (Ondansetron Inj 2 Mg/Ml 2 Ml Vial) 4 mg IV NOW STA Stop: 03/07/22 18:08 Last Admin: 03/07/22 18:22 Dose: 4 mg Documented By: DURAN Imaging Data Radiologist's Impression: Chest X-Ray 03/07/22 16:11 XR chest 1V portable CLINICAL HISTORY: weakness TECHNIQUE: Single frontal radiograph of the chest was obtained. Comparison: Comparison is made to chest radiograph 01/19/2022 FINDINGS: No lines and tubes are seen. Calcified aortic knob is seen. The lungs are clear. No evidence of pleural effusion or pneumothorax. IMPRESSION: No acute chest disease. ACT 112: Negative or not required by law. Electronically signed by: Gerber Ramos M.D. 03/07/2022 4:52 PM Femur X-Ray 03/07/22 18:07 XR hip RT 2V w pelvis, XR femur RT 2V routine HISTORY: 71 years-old Female r hip pain acute pain of the pelvis, right hip and right femur with recent fall COMPARISON: KUB 12/31/2021 TECHNIQUE: AP view of the pelvis with 2 views of the right hip and 2 views the right femur FINDINGS: PELVIS/RIGHT HIP: Arterial calcifications. Moderate colonic fecal retention. Mild to moderate osteoarthritis of the hips. No acute fracture, dislocation or avascular necrosis. FEMUR: No acute fracture or dislocation. Arterial calcifications. Mild tricompartmental osteoarthritis of the knee. No large knee joint effusion identified. IMPRESSION: No acute fracture or dislocation. ACT 112: Negative or not required by law. The above report was generated using voice recognition software. It may contain grammatical, syntax or spelling errors. Electronically signed by: Sergei Marino M.D. 03/07/2022 8:16 PM Hip/Pelvis X-Ray 03/07/22 18:07 XR hip RT 2V w pelvis, XR femur RT 2V routine HISTORY: 71 years-old Female r hip pain acute pain of the pelvis, right hip and right femur with recent fall COMPARISON: KUB 12/31/2021 TECHNIQUE: AP view of the pelvis with 2 views of the right hip and 2 views the right femur FINDINGS: PELVIS/RIGHT HIP: Arterial calcifications. Moderate colonic fecal retention. Mild to moderate osteoarthritis of the hips. No acute fracture, dislocation or avascular necrosis. FEMUR: No acute fracture or dislocation. Arterial calcifications. Mild tricompartmental osteoarthritis of the knee. No large knee joint effusion identified. IMPRESSION: No acute fracture or dislocation. ACT 112: Negative or not required by law. The above report was generated using voice recognition software. It may contain grammatical, syntax or spelling errors. Electronically signed by: Sergei Marino M.D. 03/07/2022 8:[address] 03/07/22 20:28 CT femur RT wo con HISTORY: 71 years-old Female r hip pain s/p fall ? hip/pelvic fx acute right hip pain status post fall COMPARISON: Pelvis and right hip radiographs of same day, CT abdomen and pelvis 12/27/2021 TECHNIQUE: Multiple axial CT images of the right femur were obtained without the use of IV contrast. A dose lowering technique was used consistent with the principals of ALARA. FINDINGS: Moderate colonic fecal retention. Mild nonspecific circumferential urinary bladder wall thickening. Arterial calcifications. Unremarkable soft tissues. Small right knee joint effusion. Moderate degeneration of the pubic symphysis. Mild to moderate osteoarthritis of the hips. No acute fracture or dislocation identified. No avascular necrosis. No acute pelvic ring fracture identified. IMPRESSION: No acute fracture or dislocation. ACT 112: Negative or not required by law. The above report was generated using voice recognition software. It may contain grammatical, syntax or spelling errors. Electronically signed by: Sergei Marino M.D. 03/07/2022 9:02 PM Discharge Plan Visit Data Chief Complaint: Weakness Stated Complaint: CANT WALK, POSSIBLE UTI ED Provider: Eliseo Randall Discharge Problem: Acute UTI, Weakness, Contusion of hip, Ambulatory dysfunction Forms Stand Alone Forms: My [facility] Prescriptions Prescriptions: No Action sertraline 100 mg Tablet 100 mg PO HS insulin glargine [Basaglar KwikPen U-100 Insulin] 100 unit/mL (3 mL) Insulin Pen 15 unit SUBCUT HS gabapentin 100 mg capsule 100 mg PO QAM aspirin [Ecotrin Low Strength] 81 mg Tablet,Delayed Release (Dr/Ec) 81 mg PO QAM Qty: 30 0RF nitroglycerin [Nitrostat] 0.4 mg Tablet, Sublingual 0.4 mg sublingual UD PRN (Reason: chest pain) Qty: 5 0RF acetaminophen 325 mg Tablet 650 mg PO Q4H PRN (Reason: Fever/pain) metoprolol succinate 50 mg tablet extended release 24 hr 50 mg PO BID Victoza 3-Jaime 0.6 mg/0.1 mL (18 mg/3 mL) pen injector 1.8 mg SUBCUT HS furosemide 40 mg tablet 40 mg PO 3XWK Rx Instructions: take in morning of saturday,saturday,fridays rosuvastatin [Crestor] 20 mg Tablet 20 mg PO QAM Qty: 30 0RF ketoconazole 2 % shampoo 1 applic TOPICAL UD mirtazapine 15 mg tablet 7.5 mg PO HS cholecalciferol (vitamin D3) [Vitamin D3] 25 mcg (1,000 unit) Tablet 25 mcg PO DAILY Referrals Referrals: Melissa Tovar MD [Primary Care Provider] -
[2022-03-07 18:06] LABS: Appearance Urine Clear (Clear); Bacteria Urine Automated 2+ (Negative); Bilirubin Urine Negative (Negative); Blood Urine Trace (Negative); Color Urine Yellow; Glucose Urine UA Negative (Negative); Ketones Urine Negative (Negative); Leukocyte Esterase Urine 3+ (Negative); Nitrite Urine Negative (Negative); Protein Urine Negative (Negative); RBC Urine Automated 0-4 /hpf (0-4); Urobilinogen Urine Negative (Negative); WBC Urine Automated >30 /hpf (0-5)
[2022-03-07] MEDS ORDERED: SODIUM CHLORIDE 0.9% 500 ML IV ONE (18:07)
[2022-03-07] MEDS ORDERED: ONDANSETRON INJ 2 MG/ML 2 ML VIAL IV STA (18:07)
[2022-03-07] MEDS ORDERED: MoRPHine SULFATE 4 MG/ML 1 ML CARP\\VIAL IV STA (18:07)
--- NOTE | 2022-03-07 20:18 | XRay Report ---
XR hip RT 2V w pelvis, XR femur RT 2V routine HISTORY: 71 years-old Female r hip pain acute pain of the pelvis, right hip and right femur with rec ent fall COMPARISON: KUB 12/31/2021 TECHNIQUE: AP view of the pelvis with 2 views of the right hip and 2 views the right femur FINDINGS: PELVIS/RIGHT HIP: Arterial calcifications. Moderate colonic fecal retention. Mild to moderate osteoarthritis of the hip s. No acute fracture, dislocation or avascular necrosis. FEMUR: No acute fracture or dislocation. Arterial calcifications. Mild tricompartmental osteoarthritis of th e knee. No large knee joint effusion identified. IMPRESSION: No acute fracture or dislocation. ACT 112: Negative or not required by law. The above report was generated using voice recognition software. It may contain grammatical, syntax o r spelling errors. Electronically signed by: Sergei Marino M.D. 03/07/2022 8:16 PM
--- NOTE | 2022-03-07 21:04 | CT Scan Report ---
CT femur RT wo con HISTORY: 71 years-old Female r hip pain s/p fall ? hip/pelvic fx acute right hip pain status post fa ll COMPARISON: Pelvis and right hip radiographs of same day, CT abdomen and pelvis 12/27/2021 TECHNIQUE: Multiple axial CT images of the right femur were obtained without the use of IV contrast. A dose lowering technique was used consistent with the principals of ALARA. FINDINGS: Moderate colonic fecal retention. Mild nonspecific circumferential urinary bladder wall thickening. A rterial calcifications. Unremarkable soft tissues. Small right knee joint effusion. Moderate degeneration of the pubic symphysis. Mild to moderate osteoarthritis of the hips. No acute f racture or dislocation identified. No avascular necrosis. No acute pelvic ring fracture identified. IMPRESSION: No acute fracture or dislocation. ACT 112: Negative or not required by law. The above report was generated using voice recognition software. It may contain grammatical, syntax o r spelling errors. Electronically signed by: Sergei Marino M.D. 03/07/2022 9:02 PM
[2022-03-07] MEDS ORDERED: cefTRIAXone SODIUM 2,000 MG/70 ML BAG IV STA (21:48)
[2022-03-07] MEDS ORDERED: PIPERACILLIN/TAZOBACTAM 4.5 GM/120 ML BAG IV ONE (23:30)
[2022-03-07] MEDS ORDERED: traMADol HCL 50 MG TABLET PO STA (23:47)
--- NOTE | 2022-03-07 23:53 | History & Physical Report ---
Date of Service March 07, 2022 Assessment & Plan (1) Weakness: Plan: Multifactorial : Complicated UTI, no sepsis for now ARF on CKD secondary to illness Functional disability chronic systolic heart failure secondary to ischemic cardiomyopathy (90%, TTE 2019) status post ICD, patient on the dry side hx CAD, valvular heart disease (mild MR moderate ) hypertension, BP on the lower side hyperlipidemia on statin Rx JEREMIE on CPAP DM2 insulin requiring, reasonable control as of recent hemoglobin A1c of 7.1 last November 2021 chronic pancytopenia, awaiting outpatient hematology evaluation scabies infestation mood disorder, at baseline mild dementia as per records GMF Urine CS, cefepime Monitor creatinine response to gentle IV hydration Hold home diuretic until creatinine back to baseline Topical permethrin for presumptive scabies infestation Family will need to be notified of possible scabies diagnosis, need to treat patient contacts afflicted with similar skin condition, and given instructions to wash patient's linens/towels/clothing in hot water to eradicate mite infection. PT OT eval Basal bolus insulin, ISS BG goal 1 10-1 40, carb count coverage DVT prophylaxis. SCDs Re: Thrombocytopenia Full code Patient requests for her son to be updated of plan of care. Mr. Yousuf Ribera, contact #[phone]. Text document was generated using [employer] voice recognition software. It may contain grammatical or spelling errors. Kindly contact undersigned for clarification of any documentation item in question. History of Present Illness Chief Complaint: R hip pain, urinary frequency Primary Care Provider: Melissa Tovar MD History obtained from patient and records. Medical history significant for chronic systolic heart failure secondary to ischemic cardiomyopathy (90%, TTE 2019) status post ICD, CAD, valvular heart disease (mild MR moderate ), hypertension, hyperlipidemia, JEREMIE as per records, DM2 insulin requiring, CRI (baseline creatinine 1.7), chronic pancytopenia (baseline hemoglobin 9-10), mood disorder, mild dementia. Last confinement December 2021 for metabolic encephalopathy secondary to complicated UTI. Last week, patient had a fall at home resulting in right hip/right thigh pain worse with walking. No chest pain, no SOB, no LOC. Increased urinary frequency symptoms. No fever, no chills. Patient brought to ER for evaluation. Ceftriaxone administered for UTI. Medical History as above Surgical History : ICD, appendectomy, cataract surgeries, ankle surgery, BTL, cholecystectomy Family History : The DM, breast cancer, heart disease Personal/Social history : Non-smoker, no EtOH intake, lives with family Allergies Allergy/AdvReac Type Severity Reaction Status Date / Time lisinopril Allergy Cough Verified 01/19/22 16:51 Home Medications Medication Instructions Recorded Confirmed Type gabapentin 100 mg capsule 100 mg PO QAM 02/04/19 03/07/22 History aspirin 81 mg tablet,delayed 81 mg PO QAM #30 tabs 02/11/19 03/07/22 Rx release (Ecotrin Low Strength) nitroglycerin 0.4 mg sublingual 0.4 mg sublingual UD PRN chest 02/11/19 03/07/22 Rx tablet (Nitrostat) pain #5 tabs acetaminophen 325 mg tablet 650 mg PO Q4H PRN Fever/pain 03/04/19 03/07/22 History metoprolol succinate 50 mg 50 mg PO BID 03/04/19 03/07/22 History tablet,extended release 24 hr insulin glargine 100 unit/mL (3 15 unit subcut HS 09/08/19 03/07/22 History mL) subcutaneous pen (Basaglar KwikPen U-100 Insulin) sertraline 100 mg tablet 100 mg PO HS 09/08/19 03/07/22 History liraglutide 0.6 mg/0.1 mL (18 mg/3 1.8 mg subcut HS 12/26/21 03/07/22 History mL) subcutaneous pen injector (Victoza 3-Jaime) furosemide 40 mg tablet 40 mg PO 3XWK 12/27/21 03/07/22 History rosuvastatin 20 mg tablet (Crestor) 20 mg PO QAM #30 tabs 01/02/22 03/07/22 Rx ketoconazole 2 % shampoo 1 applic topical UD 01/19/22 03/07/22 History cholecalciferol (vitamin D3) 25 25 mcg PO DAILY 03/07/22 03/07/22 History mcg (1,000 unit) tablet (Vitamin D3) mirtazapine 15 mg tablet 7.5 mg PO HS 03/07/22 03/07/22 History Past Med/Surg History Medical History Anemia Anxiety and depression Aortic stenosis Chronic renal disease, stage IV Chronic systolic heart failure Dementia DM II (diabetes mellitus, type II), controlled GERD (gastroesophageal reflux disease) Hyperkalemia Hyperlipidemia LDL goal <70 Hypertension Moderate mitral regurgitation NSTEMI (non-ST elevated myocardial infarction) 2014?--follows with Dr. Charles Sensorineural hearing loss (SNHL) of both ears Surgical History AICD (automatic cardioverter/defibrillator) present 2017--meditronic @ [facility] History of appendectomy History of bilateral cataract extraction History of open reduction and internal fixation (ORIF) procedure ankle fx---hardware in place History of tubal ligation Status post cholecystectomy Family History Mother Family history of diabetes mellitus Brother Family history of diabetes mellitus Sister Family history of diabetes mellitus Other No family history of adverse response to anesthesia Social History Smoking Status: Never smoker Second Hand Exposure: No; Hx Alcohol Use: No Hx Substance Use: No Preferred Language: Indonesian Communication Ability: Effective Assemblyman Or Woman Required: No Beliefs That Will Affect Care: None marital status: / Current Living Situation: Family Current Living Situation Comment: Lives with one daughter above sons garage made into apartment. How many Children do You have: 3 Other Information That Helps Us Care for You: No Feels Safe at Home: Yes Safety Concerns: Feels Safe At This Time Assistive Devices: Walker Review of Systems Review of Systems: As per HPI, itchy rash on her arms, legs, neck and chest for a few months now, all other systems reviewed and negative Physical Exam Physical Exam: GENERAL: Slightly uncomfortable, oriented to month and year, pleasant, no respiratory distress SKIN: Pallor, warm, macular rash noted over patient's neck, chest, inguinal area, arms and legs with excoriations HEENT: Pale palpebral conjunctivae, no ptosis, dry buccal mucosa NECK : Supple, no tenderness CHEST : CTA, no tenderness HEART : RRR, systolic murmur ABDOMEN: Some distention, nontender EXTREMITIES : Minimal LE swelling, right thigh tenderness, no other conspicuous deformities noted NEUROLOGIC : Coherent, no facial asymmetry, gait and stance not assessed Results & Data Results & [facility] ([facility]) Vital Signs (Past 12 Hours) Vital Signs Temp Pulse Pulse Resp BP BP Pulse Ox 03/07/22 19:27 97 H 18 129/87 100 03/07/22 17:53 98 H 18 124/64 100 03/07/22 17:47 98 03/07/22 16:09 36.4 C L 94 H 18 103/61 98 O2 Del Method 03/07/22 19:27 Room Air 03/07/22 17:53 03/07/22 17:47 Room Air 03/07/22 16:09 Room Air Laboratory Results Laboratory Results WBC 4.51 K/ul (4.8-10.8) L 03/07/22 16:28 RBC 3.29 M/uL (3.93-5.22) L 03/07/22 16:28 Hgb 10.7 g/dl (12.0-16.0) L 03/07/22 16:28 Hct 32.2 % (34.1-44.9) L 03/07/22 16:28 MCV 97.9 fL (80.0-100.0) 03/07/22 16:28 MCH 32.5 pg (25.0-34.0) 03/07/22 16:28 MCHC 33.2 g/dL (32.0-36.0) 03/07/22 16:28 RDW Std Deviation 47.4 fL (36.4-46.3) H 03/07/22 16:28 RDW Coeff of Nevaeh 13.2 % (11.5-14.5) 03/07/22 16:28 Plt Count 70 K/uL (130-400) L 03/07/22 16:28 MPV 10.9 fL (9.4-12.3) 03/07/22 16:28 Immature Gran % (Auto) 1.3 % 03/07/22 16:28 Neut % (Auto) 55.9 % 03/07/22 16:28 Lymph % (Auto) 32.2 % 03/07/22 16:28 [place] % (Auto) 10.2 % 03/07/22 16:28 Eos % (Auto) 0.4 % 03/07/22 16:28 Baso % (Auto) 0.0 % 03/07/22 16:28 Neut # (Auto) 2.52 K/uL (1.4-6.5) 03/07/22 16:28 Lymph # (Auto) 1.45 K/uL (1.2-3.4) 03/07/22 16:28 [place] # (Auto) 0.46 K/uL (0.24-0.82) 03/07/22 16:28 Eos # (Auto) 0.02 K/uL (0-0.50) 03/07/22 16:28 Baso # (Auto) 0.00 K/uL (0-0.2) 03/07/22 16:28 Immature Gran # (Auto) 0.06 K/uL (0.00-0.02) H 03/07/22 16:28 PT 11.5 Seconds (9.0-12.0) 03/07/22 16: INR 1.1 (0.9-1.1) 03/07/22 16:28 APTT 27.8 Seconds (21.0-31.0) 03/07/22 16: PTT Ratio 1.0 03/07/22 16:28 Sodium 137 mmol/L (136-145) 03/07/22 16:28 Potassium 4.8 mmol/L (3.5-5.1) 03/07/22 16:28 Chloride 102 mmol/L (98-107) 03/07/22 16:28 Carbon Dioxide 28 mmol/L (21-32) 03/07/22 16:28 Anion Gap 7 (3-11) 03/07/22 16:28 BUN 83 mg/dl (6-23) H 03/07/22 16:28 Creatinine 1.95 mg/dl (0.6-1.2) H 03/07/22 16:28 Est Cr Clr Drug Dosing Not Reportable 03/07/22 16:28 Est GFR ( Amer) 29.1 ml/min 03/07/22 16:28 Est GFR (Non-Af Amer) 25.1 ml/min 03/07/22 16:28 BUN/Creatinine Ratio 42.6 (10-20) H 03/07/22 16:28 Glucose 205 mg/dl (70-99(Fasting)) H 03/07/22 16:28 Calcium 9.6 mg/dl (8.5-10.1) 03/07/22 16:28 Magnesium 2.5 mg/dl (1.7-2.4) H 03/07/22 16:28 Total Bilirubin 0.4 mg/dl (0.2-1.0) 03/07/22 16:28 AST 19 U/L (13-39) 03/07/22 16:28 ALT 12 U/L (7-52) 03/07/22 16:28 Alkaline Phosphatase 60 U/L (34-104) 03/07/22 16:28 Total Protein 8.3 gm/dl (6.0-8.3) 03/07/22 16:28 Albumin 4.3 gm/dl (3.4-5.0) 03/07/22 16: Globulin 4.0 gm/dl (2.5-4.0) 03/07/22 16: Albumin/Globulin Ratio 1.1 (0.9-2) 03/07/22 16:28 TSH 1.358 uIu/ml (0.300-4.500) 03/07/22 16:28 Urine Color Yellow 03/07/22 17:46 Urine Appearance Clear (Clear) 03/07/22 17:46 Urine pH 5.0 (4.5-7.5) 03/07/22 17:46 Ur Specific Elizabeth 1.010 (1.000-1.030) 03/07/22 17:46 Urine Protein Negative (Negative) 03/07/22 17:46 Urine Glucose (UA) Negative (Negative) 03/07/22 17:46 Urine Ketones Negative (Negative) 03/07/22 17:46 Urine Blood Trace (Negative) H 03/07/22 17:46 Urine Nitrite Negative (Negative) 03/07/22 17:46 Urine Bilirubin Negative (Negative) 03/07/22 17:46 Urine Urobilinogen Negative (Negative) 03/07/22 17:46 Ur Leukocyte Esterase 3+ (Negative) H 03/07/22 17:46 Urine WBC (Auto) >30 /hpf (0-5) H 03/07/22 17:46 Urine RBC (Auto) 0-4 /hpf (0-4) 03/07/22 17:46 U Hyaline Cast (Auto) 1-5 /lpf (0-5) 03/07/22 17:46 U Epithel Cells (Auto) 5-10 /lpf (0-5) H 03/07/22 17:46 Urine Bacteria (Auto) 2+ (Negative) H 03/07/22 17:46 SARS-CoV-2, RNA, NAAT NEGATIVE (NEGATIVE) 03/07/22 18:51 Impressions Chest X-Ray 03/07/22 16:11 XR chest 1V portable CLINICAL HISTORY: weakness TECHNIQUE: Single frontal radiograph of the chest was obtained. Comparison: Comparison is made to chest radiograph 01/19/2022 FINDINGS: No lines and tubes are seen. Calcified aortic knob is seen. The lungs are clear. No evidence of pleural effusion or pneumothorax. IMPRESSION: No acute chest disease. ACT 112: Negative or not required by law. Electronically signed by: Gerber Ramos M.D. 03/07/2022 4:52 PM Femur X-Ray 03/07/22 18:07 XR hip RT 2V w pelvis, XR femur RT 2V routine HISTORY: 71 years-old Female r hip pain acute pain of the pelvis, right hip and right femur with recent fall COMPARISON: KUB 12/31/2021 TECHNIQUE: AP view of the pelvis with 2 views of the right hip and 2 views the right femur FINDINGS: PELVIS/RIGHT HIP: Arterial calcifications. Moderate colonic fecal retention. Mild to moderate osteoarthritis of the hips. No acute fracture, dislocation or avascular necrosis. FEMUR: No acute fracture or dislocation. Arterial calcifications. Mild tricompartmental osteoarthritis of the knee. No large knee joint effusion identified. IMPRESSION: No acute fracture or dislocation. ACT 112: Negative or not required by law. The above report was generated using voice recognition software. It may contain grammatical, syntax or spelling errors. Electronically signed by: Sergei Marino M.D. 03/07/2022 8:16 PM Hip/Pelvis X-Ray 03/07/22 18:07 XR hip RT 2V w pelvis, XR femur RT 2V routine HISTORY: 71 years-old Female r hip pain acute pain of the pelvis, right hip and right femur with recent fall COMPARISON: KUB 12/31/2021 TECHNIQUE: AP view of the pelvis with 2 views of the right hip and 2 views the right femur FINDINGS: PELVIS/RIGHT HIP: Arterial calcifications. Moderate colonic fecal retention. Mild to moderate osteoarthritis of the hips. No acute fracture, dislocation or avascular necrosis. FEMUR: No acute fracture or dislocation. Arterial calcifications. Mild tricompartmental osteoarthritis of the knee. No large knee joint effusion identified. IMPRESSION: No acute fracture or dislocation. ACT 112: Negative or not required by law. The above report was generated using voice recognition software. It may contain grammatical, syntax or spelling errors. Electronically signed by: Sergei Marino M.D. 03/07/2022 8:[address] 03/07/22 20:28 CT femur RT wo con HISTORY: 71 years-old Female r hip pain s/p fall ? hip/pelvic fx acute right hip pain status post fall COMPARISON: Pelvis and right hip radiographs of same day, CT abdomen and pelvis 12/27/2021 TECHNIQUE: Multiple axial CT images of the right femur were obtained without the use of IV contrast. A dose lowering technique was used consistent with the principals of ERIKA. FINDINGS: Moderate colonic fecal retention. Mild nonspecific circumferential urinary bladder wall thickening. Arterial calcifications. Unremarkable soft tissues. Small right knee joint effusion. Moderate degeneration of the pubic symphysis. Mild to moderate osteoarthritis of the hips. No acute fracture or dislocation identified. No avascular necrosis. No acute pelvic ring fracture identified. IMPRESSION: No acute fracture or dislocation. ACT 112: Negative or not required by law. The above report was generated using voice recognition software. It may contain grammatical, syntax or spelling errors. Electronically signed by: Sergei Marino M.D. 03/07/2022 9:02 PM Diagnostic Findings EKG as per my interpretation : Rate 90, NSR, normal axis, T wave inversion inferior and lateral leads
[2022-03-08] MEDS ORDERED: SODIUM CHLORIDE 0.9% 1000ML 1,000 ML IV ONE (00:01)
[2022-03-08] MEDS ORDERED: HYDROmorphone INJ 0.5 MG/0.5 ML SYR IV PRN (00:01)
[2022-03-08] MEDS ORDERED: GLUCOSE 10 TAB/TUBE PO PRN (02:55)
[2022-03-08] MEDS ORDERED: PROMETHAZINE HCL 12.5 MG in SODIUM CHLORIDE 0.9% 50 ML IV PRN (02:55)
[2022-03-08] MEDS ORDERED: GLUCAGON FOR INJ 1 MG VIAL SQ PRN (02:55)
[2022-03-08] MEDS ORDERED: CARBOHYDRATES FOR HYPOGLYCEMIA PO PRN (02:55)
[2022-03-08] MEDS ORDERED: ACETAMINOPHEN 325 MG TAB PO PRN (02:55)
[2022-03-08] MEDS ORDERED: GLUCOSE 40% GEL 15 GM TUBE PO PRN (02:55)
[2022-03-08] MEDS ORDERED: DEXTROSE 50% 50 ML SYRINGE IV PRN (02:55)
[2022-03-08] MEDS: LANTUS PER UNIT CHARGE SQ SCH ×2 (04:45→20:53)
[2022-03-08] MEDS: INSULIN ASPART PER UNIT SC SCH ×5 (04:46→20:53)
[2022-03-08] MEDS: oxyCODONE HCL IR 5 MG TAB (IMMEDIATE RELEASE) PO PRN ×3 (04:48→16:53)
[2022-03-08] MEDS: LORATADINE 10 MG TAB PO SCH (04:49)
[2022-03-08] MEDS: METOPROLOL SUCC 50MG EXT REL TAB PO SCH ×3 (04:49→20:43)
--- NOTE | 2022-03-08 06:43 | CT Scan Report ---
CT femur RT wo con CLINICAL HISTORY: Right thigh pain and swelling. COMPARISON STUDY: CT of the right femur and right femur radiographs March 07, 2022. TECHNIQUE: Axial images of the right femur and thigh were obtained without intravenous contrast. Sagi ttal and coronal reconstructions were viewed. Automated exposure control was utilized for the study. A dose lowering technique was utilized adhering to the principles of ALARA. FINDINGS: No significant abnormalities are identified within visualized portions of the pelvis. No fr actures are noted within visualized portions of the pelvis. Bladder wall thickening is similar to CT of December 27, 2021. Extensive vascular calcification is incidentally noted. No fluid collection wi thin the right thigh is noted. Musculature is unremarkable by CT. A small right knee joint effusion i s present. There is no acute fracture within the right femur. No osseous lesion is noted. No evidence for avascular necrosis of the right femoral head. Moderate degenerative changes within the right kne e are present. Mild to moderate right hip osteoarthritis is present. IMPRESSION: 1. No acute fracture within the right femur. 2. No right thigh fluid collection. ACT 112: Negative or not required by law. Electronically signed by: Josr Gaines M.D. 03/08/2022 6:40 AM
[2022-03-08] MEDS: PIPERACILLIN/TAZOBACTAM 3.375 GM in DEXTROSE 5% 100 ML IV SCH ×3 (06:50→21:02)
[2022-03-08 06:52] LABS: Eosinophils # (auto) 0.01 K/uL (0-0.50); Eosinophils % (auto) 0.2 %; Hematocrit (blood only) 27.8 % (34.1-44.9); Hemoglobin 9.1 g/dl (12.0-16.0); Immature Granulocytes # (auto) 0.06 K/uL (0.00-0.02); Immature Granulocytes % (auto) 1.4 %; Lymphocytes # (auto) 1.73 K/uL (1.2-3.4); Lymphocytes % (auto) 39.9 %; Mean Platelet Volume 11.7 fL (9.4-12.3); Monocytes % (auto) 11.5 %; Neutrophils # (auto) 2.04 K/uL (1.4-6.5); Platelet Count 55 K/uL (130-400); White Blood Count 4.34 K/ul (4.8-10.8)
[2022-03-08 07:11] LABS: BUN Creatinine Ratio 40.2 (10-20); Calcium 8.7 mg/dl (8.5-10.1); Creatinine Clr Calc Pharmacy 25.5 ml/min; Est GFR (African American) 30.2 ml/min; Potassium 4.9 mmol/L (3.5-5.1)
[2022-03-08 07:21] LABS: Mean Corpuscular Hemoglobin 32.3 pg (25.0-34.0); Mean Corpuscular Hgb Conc 32.7 g/dL (32.0-36.0); Mean Corpuscular Volume 98.6 fL (80.0-100.0); RDW Standard Deviation 46.7 fL (36.4-46.3); Red Blood Count 2.82 M/uL (3.93-5.22)
[2022-03-08] MEDS: GABAPENTIN 100 MG CAP PO SCH (09:51)
[2022-03-08] MEDS: ROSUVASTATIN CALCIUM 20 MG TAB PO SCH (09:51)
[2022-03-08] MEDS: ASPIRIN 81 MG ECTAB PO SCH (11:27)
--- NOTE | 2022-03-08 13:30 | Hospitalist Progress Note ---
Date of Service March 08, 2022 Assessment & Plan (1) Acute UTI: Plan 71-year-old lady with PMH of chronic systolic heart failure secondary to ischemic cardiomyopathy [EF 20 to 25% on echo 2019], status post ICD, CAD, valvular heart disease, HTN, HLD, JEREMIE, DM 2 insulin requiring presented with complaint of fall on the day of . She reports that COVID back of her head against refrigerator door and slipped fell on her buttocks on the floor. She was found to have UTI and scabies infection at presentation in the ED. She is being managed for the following: Generalized weakness Fall Fall on the day of , resulting in right hip/right thigh pain worse with walking. Admitting imagings: CXR-no acute findings. X-ray hip right with pelvis and x-ray femur right -no acute fracture or dislocation. Right femur CT - no acute fracture or dislocation. No right thigh fluid collection. Pt's son stated that she didn't hit her head, he stated they have camera in the home and somebody is with her 29/10. Pain control, PT/OT. Complicated UTI: No sepsis POA, patient complained of pain and burning with passing urine since , follow-up admitting urine culture. Patient started with Zosyn on 03/08, will continue same for now, de-escalate in a.m. Await culture reports. CKD stage IV: Baseline creatinine around 1.7-2.0. Admitting creatinine around baseline. Will monitor as needed. No CORBY over CKD. Resume home meds as able. likely Scabies: Status post topical permethrin on 03/08, Pt's son stated she always has such skin problem and itching and follows derm as OP, uses certain cream regularly which he said he will either bring to hospital or call the hospital w/ name when able. Chronic pancytopenia: Awaiting outpatient hematology evaluation. Other chronic medical conditions: Chronic systolic heart failure status post ICD, CAD, valvular heart disease, HTN, HLD, JEREMIE on CPAP, DM 2 insulin requiring, mood disorder, mild dementia --- home meds as able. DVT prophylaxis: SCDs, thrombocytopenic patient. Full code Pt's Son Mr. Yousuf Ribera, contact #[phone]. given a phone call 12/1. Spent approx 14 min, answered all his questions. Admission and Anticipated Discharge Date Admission Date: March 07, 2022 Subjective Patient seen and examined at bedside as a follow-up of fall, complicated UTI, s xi. Patient was lying in bed, on 2 L nasal cannula oxygen, NAD, denies any new acute event overnight, reports feeling weak and tired, reports pain and burning while passing urine since , reports some pain at the back of the head and also stated that she hit her head on the refrigerator door when she fell on the day of . Pt's son confirmed she didn't hit her head, and states he has camera showing that. Reports eating ok and moving bowels ok. Physical Exam Physical Exam: GENERAL: Alert and oriented x3. NAD, on 2L NC O2. Old, frail and weak appearing. HEENT: No pallor, no icterus. Pupils equal, round and reactive to light. Oral mucosa moist. NECK: No JVD, no neck masses. HEART: S1 and S2 heard. Regular rate and rhythm. + murmur, no gallop. RESPIRATORY SYSTEM: Normal AP diameter. No accessory muscle use. No wheezing, no crackles. ABDOMEN: Soft, bowel sounds present, nontender, no distention. CENTRAL NERVOUS SYSTEM: No facial droop. Speech is clear. Obeys simple commands. Moves extremities. EXTREMITIES: No edema, no erythema seen. Sking: macular rash over flexural aspect of forearm, over neck, chest and inguinal area w/ excoriations. Results & Data Results & Data ([facility]) Vital Signs (Past 12 Hours) Vital Signs Temp Pulse Pulse Resp BP BP Pulse Ox 03/08/22 06:53 36.8 C 83 18 100/58 L 96 03/08/22 05:01 36.4 C L 93 H 16 110/54 L 99 03/08/22 01:22 88 12 122/84 100 O2 Del Method O2 Flow Rate 03/08/22 06:53 Nasal Cannula 2 03/08/22 05:01 Nasal Cannula 2 03/08/22 01:22 Room Air
--- NOTE | 2022-03-08 19:01 | Electrocardiogram Report ---
Test Reason : Blood Pressure : / mmHG Vent. Rate : 091 BPM Atrial Rate : 091 BPM P-R Int : 198 ms QRS Dur : 094 ms QT Int : 396 ms P-R-T Axes : 064 013 244 degrees QTc Int : 487 ms Poor data quality, interpretation may be adversely affected Normal sinus rhythm Possible Left atrial enlargement Abnormal ECG When compared with ECG of 19-JAN-2022 15:35, No significant change was found Confirmed by Navneet Dumont ([id number]) on 03/08/2022 7:01:12 PM Referred By: Melissa Tovar Confirmed By:Estrada Dumont
[2022-03-08] MEDS: SERTRALINE HCL 100 MG TABLET PO SCH (20:42)
[2022-03-08] MEDS: MIRTAZAPINE TAB 15 MG TAB PO SCH (20:43)
[2022-03-08] MEDS ORDERED: PERMETHRIN 5% CR 60 GM TUBE EXT ONE (21:00)
[2022-03-09] MEDS: PIPERACILLIN/TAZOBACTAM 3.375 GM in DEXTROSE 5% 100 ML IV SCH (05:25)
[2022-03-09] MEDS: LORATADINE 10 MG TAB PO SCH (08:52)
[2022-03-09] MEDS: METOPROLOL SUCC 50MG EXT REL TAB PO SCH ×2 (08:52→19:22)
[2022-03-09] MEDS: ROSUVASTATIN CALCIUM 20 MG TAB PO SCH (08:52)
[2022-03-09] MEDS: ASPIRIN 81 MG ECTAB PO SCH (08:52)
[2022-03-09] MEDS: INSULIN ASPART PER UNIT SC SCH ×5 (08:52→20:39)
[2022-03-09] MEDS: GABAPENTIN 100 MG CAP PO SCH (08:52)
[2022-03-09 10:25] LABS: Hematocrit (blood only) 28.9 % (34.1-44.9); Hemoglobin 9.5 g/dl (12.0-16.0); Mean Platelet Volume 11.4 fL (9.4-12.3); Platelet Count 59 K/uL (130-400); White Blood Count 4.94 K/ul (4.8-10.8)
[2022-03-09 10:42] LABS: BUN Creatinine Ratio 29.1 (10-20); Calcium 8.4 mg/dl (8.5-10.1); Creatinine Clr Calc Pharmacy 20.3 ml/min; Est GFR (Non-African American) 19.8 ml/min; Magnesium 2.2 mg/dl (1.7-2.4); Phosphorus 3.6 mg/dl (2.5-4.9); Potassium 4.9 mmol/L (3.5-5.1)
[2022-03-09 11:05] LABS: Mean Corpuscular Hemoglobin 32.4 pg (25.0-34.0); Mean Corpuscular Hgb Conc 32.9 g/dL (32.0-36.0); Mean Corpuscular Volume 98.6 fL (80.0-100.0); RDW Coefficient of Variation 12.9 % (11.5-14.5); RDW Standard Deviation 46.5 fL (36.4-46.3); Red Blood Count 2.93 M/uL (3.93-5.22)
[2022-03-09] MEDS: cefTRIAXone SODIUM 2,000 MG in DEXTROSE 5% 50 ML IV SCH (12:07)
--- NOTE | 2022-03-09 15:45 | Hospitalist Progress Note ---
Date of Service March 09, 2022 Assessment & Plan (1) Acute UTI: Plan 71-year-old lady with PMH of chronic systolic heart failure secondary to ischemic cardiomyopathy [EF 20 to 25% on echo 2019], status post ICD, CAD, valvular heart disease, HTN, HLD, JEREMIE, DM 2 insulin requiring presented with complaint of fall on the day of . She reports that COVID back of her head against refrigerator door and slipped fell on her buttocks on the floor. She was found to have UTI and scabies infection at presentation in the ED. She is being managed for the following: Generalized weakness Fall Fall on the day of , resulting in right hip/right thigh pain worse with walking. Admitting imagings: CXR-no acute findings. X-ray hip right with pelvis and x-ray femur right -no acute fracture or dislocation. Right femur CT - no acute fracture or dislocation. No right thigh fluid collection. Pt's son stated that she didn't hit her head, he stated they have camera in the home and somebody is with her 29/10. Pain control, PT/OT. Home w/ Home Health. Complicated UTI: No sepsis POA, patient complained of pain and burning with passing urine since , follow-up admitting urine culture. Patient started with Zosyn on 03/08, Rocephin 03/09, PO after tomorrow's dose. CKD stage IV: Baseline creatinine around 1.7-2.0. Admitting creatinine around baseline. Cr slightly bumped up today, not enough to justify souleymane over ckd, mild dehydration likely 2/2 very hot room/sweating. IVF today, BMP in AM. Less likely Scabies: Status post topical permethrin on 03/08, Pt's son stated she always has such skin problem and itching and follows derm as OP, uses certain cream regularly which he said he will either bring to hospital or call the hospital w/ name when able. Can lift isolation. Chronic pancytopenia: Awaiting outpatient hematology evaluation. Other chronic medical conditions: Chronic systolic heart failure status post ICD, CAD, valvular heart disease, HTN, HLD, JEREMIE on CPAP, DM 2 insulin requiring, mood disorder, mild dementia --- home meds as able. DVT prophylaxis: SCDs, thrombocytopenic patient. Full code Pt's Son Mr. Yousuf Ribera, contact #[phone]. given a phone call 03/08. Spent approx 14 min, answered all his questions. Likely DC dilcia w/ Home Health. Oral atb. Admission and Anticipated Discharge Date Admission Date: March 07, 2022 Subjective Patient seen and examined at bedside as a follow-up of fall, complicated UTI, concern for scabies but likely chronic skin condition. Patient was lying in bed, on RA, NAD, denies any new acute event overnight, reports feeling weak and tired, states that she would like to go home. Pt denies itching. Reports eating ok and moving bowels ok. Physical Exam Physical Exam: GENERAL: Alert and oriented x3. NAD, on RA. Old, frail and weak appearing. HEENT: No pallor, no icterus. Pupils equal, round and reactive to light. Oral mucosa moist. NECK: No JVD, no neck masses. HEART: S1 and S2 heard. Regular rate and rhythm. + murmur, no gallop. RESPIRATORY SYSTEM: Normal AP diameter. No accessory muscle use. No wheezing, no crackles. ABDOMEN: Soft, bowel sounds present, nontender, no distention. CENTRAL NERVOUS SYSTEM: No facial droop. Speech is clear. Obeys simple commands. Moves extremities. EXTREMITIES: No edema, no erythema seen. Sking: macular rash over flexural aspect of forearm, over neck, chest and inguinal area , no rashes over the web spaces of fingers and toes. Results & Data Results & Data ([facility]) Vital Signs (Past 12 Hours) Vital Signs Temp Pulse Resp BP Pulse Ox O2 Del Method 03/09/22 07:20 36.7 C 109 H 16 118/64 95 Room Air
[2022-03-09] MEDS: SODIUM CHLORIDE 0.9% 1000ML 1,000 ML IV SCH (16:06)
[2022-03-09] MEDS: SERTRALINE HCL 100 MG TABLET PO SCH (19:23)
[2022-03-09] MEDS: MIRTAZAPINE TAB 15 MG TAB PO SCH (19:23)
[2022-03-09] MEDS: LANTUS PER UNIT CHARGE SQ SCH (20:39)
[2022-03-10] MEDS: SODIUM CHLORIDE 0.9% 1000ML 1,000 ML IV SCH (04:44)
[2022-03-10 08:57] LABS: BUN Creatinine Ratio 38.5 (10-20); Calcium 8.4 mg/dl (8.5-10.1); Creatinine Clr Calc Pharmacy 27.7 ml/min; Est GFR (African American) 33.4 ml/min; Est GFR (Non-African American) 28.8 ml/min; Potassium 4.3 mmol/L (3.5-5.1)
[2022-03-10] MEDS: METOPROLOL SUCC 50MG EXT REL TAB PO SCH ×2 (09:44→20:35)
[2022-03-10] MEDS: GABAPENTIN 100 MG CAP PO SCH (09:44)
[2022-03-10] MEDS: ROSUVASTATIN CALCIUM 20 MG TAB PO SCH (09:44)
[2022-03-10] MEDS: ASPIRIN 81 MG ECTAB PO SCH (09:44)
[2022-03-10] MEDS: LORATADINE 10 MG TAB PO SCH (09:44)
[2022-03-10] MEDS: INSULIN ASPART PER UNIT SC SCH ×5 (09:46→20:59)
[2022-03-10] MEDS: cefTRIAXone SODIUM 2,000 MG in DEXTROSE 5% 50 ML IV SCH (10:00)
[2022-03-10] MEDS: ADVANCED PROBIOTIC 1250 MG CAPSULE PO SCH (13:02)
[2022-03-10] MEDS ORDERED: LOPERAMIDE HCL 2 MG CAP PO PRN (14:30)
--- NOTE | 2022-03-10 14:33 | Hospitalist Progress Note ---
Date of Service March 10, 2022 Assessment & Plan (1) Acute UTI: Plan 71-year-old lady with PMH of chronic systolic heart failure secondary to ischemic cardiomyopathy [EF 20 to 25% on echo 2019], status post ICD, CAD, valvular heart disease, HTN, HLD, JEREMIE, DM 2 insulin requiring presented with complaint of fall on the day of . She reports that COVID back of her head against refrigerator door and slipped fell on her buttocks on the floor. She was found to have UTI and scabies infection at presentation in the ED. She is being managed for the following: Generalized weakness Fall Fall on the day of , resulting in right hip/right thigh pain worse with walking. Admitting imagings: CXR-no acute findings. X-ray hip right with pelvis and x-ray femur right -no acute fracture or dislocation. Right femur CT - no acute fracture or dislocation. No right thigh fluid collection. Pt's son stated that she didn't hit her head, he stated they have camera in the home and somebody is with her 29/10. Pain control, PT/OT. Home w/ Home Health. Complicated UTI: No sepsis POA, patient complained of pain and burning with passing urine since , follow-up admitting urine culture. Patient started with Zosyn on 03/08, Rocephin 03/09, PO at SC. CKD stage IV: Baseline creatinine around 1.7-2.0. Admitting creatinine around baseline. Cr slightly bumped up 03/09, not enough to justify souleymane over ckd, mild dehydration likely 2/2 very hot room/sweating. Cr better, bmp in AM. Less likely Scabies: Status post topical permethrin on 03/08, Pt's son stated she always has such skin problem and itching and follows derm as OP, uses certain cream regularly which he said he will either bring to hospital or call the hospital w/ name when able. Off of isolation. Chronic pancytopenia: Awaiting outpatient hematology evaluation. Other chronic medical conditions: Chronic systolic heart failure status post ICD, CAD, valvular heart disease, HTN, HLD, JEREMIE on CPAP, DM 2 insulin requiring, mood disorder, mild dementia --- home meds as able. DVT prophylaxis: SCDs, thrombocytopenic patient. Full code Pt's Son Mr. Yousuf Ribera, contact #[phone]. given a phone call 03/08. Spent approx 14 min, answered all his questions. Having multiple loose stools today, c diff neg, likely dc dilcia pending bowel improvement. Admission and Anticipated Discharge Date Admission Date: March 07, 2022 Subjective Patient seen and examined at bedside as a follow-up of fall, complicated UTI, concern for scabies but likely chronic skin condition. Patient was lying in bed, on RA, NAD, denies any new acute event overnight, reports feeling better but is having multiple loose stools today, c diff was negative. will use imodium. states that she would like to go home. Pt denies itching. Reports eating ok. Physical Exam Physical Exam: GENERAL: Alert and oriented x3. NAD, on RA. Old, frail and weak appearing. HEENT: No pallor, no icterus. Pupils equal, round and reactive to light. Oral mucosa moist. NECK: No JVD, no neck masses. HEART: S1 and S2 heard. Regular rate and rhythm. + murmur, no gallop. RESPIRATORY SYSTEM: Normal AP diameter. No accessory muscle use. No wheezing, no crackles. ABDOMEN: Soft, bowel sounds present, nontender, no distention. CENTRAL NERVOUS SYSTEM: No facial droop. Speech is clear. Obeys simple commands. Moves extremities. EXTREMITIES: No edema, no erythema seen. Sking: macular rash over flexural aspect of forearm, over neck, chest and inguinal area , no rashes over the web spaces of fingers and toes. Results & Data Results & Data ([facility]) Vital Signs (Past 12 Hours) Vital Signs Temp Pulse Resp BP Pulse Ox O2 Del Method 03/10/22 07:21 36.6 C 93 H 16 126/69 93 Room Air
[2022-03-10] MEDS: MIRTAZAPINE TAB 15 MG TAB PO SCH (20:34)
[2022-03-10] MEDS: SERTRALINE HCL 100 MG TABLET PO SCH (20:35)
[2022-03-10] MEDS: LANTUS PER UNIT CHARGE SQ SCH (20:58)
[2022-03-11 08:48] LABS: Hematocrit (blood only) 26.6 % (34.1-44.9); Hemoglobin 8.9 g/dl (12.0-16.0); Mean Platelet Volume 11.5 fL (9.4-12.3); Platelet Count 53 K/uL (130-400); White Blood Count 3.57 K/ul (4.8-10.8)
[2022-03-11 09:16] LABS: Mean Corpuscular Hemoglobin 32.7 pg (25.0-34.0); Mean Corpuscular Hgb Conc 33.5 g/dL (32.0-36.0); Mean Corpuscular Volume 97.8 fL (80.0-100.0); RDW Coefficient of Variation 13.2 % (11.5-14.5); RDW Standard Deviation 47.3 fL (36.4-46.3); Red Blood Count 2.72 M/uL (3.93-5.22)
[2022-03-11 09:28] LABS: BUN Creatinine Ratio 37.4 (10-20); Calcium 8.6 mg/dl (8.5-10.1); Creatinine Clr Calc Pharmacy 29.5 ml/min; Est GFR (African American) 36.1 ml/min; Est GFR (Non-African American) 31.2 ml/min; Magnesium 2.1 mg/dl (1.7-2.4); Phosphorus 3.1 mg/dl (2.5-4.9); Potassium 4.8 mmol/L (3.5-5.1)
[2022-03-11] MEDS: ASPIRIN 81 MG ECTAB PO SCH (10:04)
[2022-03-11] MEDS: ROSUVASTATIN CALCIUM 20 MG TAB PO SCH (10:05)
[2022-03-11] MEDS: METOPROLOL SUCC 50MG EXT REL TAB PO SCH (10:05)
[2022-03-11] MEDS: GABAPENTIN 100 MG CAP PO SCH (10:05)
[2022-03-11] MEDS: ADVANCED PROBIOTIC 1250 MG CAPSULE PO SCH (10:05)
[2022-03-11] MEDS: LORATADINE 10 MG TAB PO SCH (10:05)
[2022-03-11] MEDS: INSULIN ASPART PER UNIT SC SCH ×2 (10:09→13:28)
[2022-03-11] MEDS: cefTRIAXone SODIUM 2,000 MG in DEXTROSE 5% 50 ML IV SCH (10:18)
--- NOTE | 2022-03-11 11:33 | Discharge Summary ---
Date of Service March 11, 2022 Admission HPI Per Admitting Provider History obtained from patient and records. Medical history significant for chronic systolic heart failure secondary to ischemic cardiomyopathy (90%, TTE 2019) status post ICD, CAD, valvular heart disease (mild MR moderate ), hypertension, hyperlipidemia, JEREMIE as per records, DM2 insulin requiring, CRI (baseline creatinine 1.7), chronic pancytopenia (baseline hemoglobin 9-10), mood disorder, mild dementia. Last confinement December 2021 for metabolic encephalopathy secondary to complicated UTI. Last week, patient had a fall at home resulting in right hip/right thigh pain worse with walking. No chest pain, no SOB, no LOC. Increased urinary frequency symptoms. No fever, no chills. Patient brought to ER for evaluation. Ceftriaxone administered for UTI. Medical History as above Surgical History : ICD, appendectomy, cataract surgeries, ankle surgery, BTL, cholecystectomy Family History : The DM, breast cancer, heart disease Personal/Social history : Non-smoker, no EtOH intake, lives with family Admission Exam Per Admitting Provider GENERAL: Slightly uncomfortable, oriented to month and year, pleasant, no respiratory distress SKIN: Pallor, warm, macular rash noted over patient's neck, chest, inguinal area, arms and legs with excoriations HEENT: Pale palpebral conjunctivae, no ptosis, dry buccal mucosa NECK : Supple, no tenderness CHEST : CTA, no tenderness HEART : RRR, systolic murmur ABDOMEN: Some distention, nontender EXTREMITIES : Minimal LE swelling, right thigh tenderness, no other conspicuous deformities noted NEUROLOGIC : Coherent, no facial asymmetry, gait and stance not assessed Principal Diagnosis Generalized weakness Fall Complicated UTI Discharge Exam GENERAL: Alert and oriented x3. NAD, on RA. Old, frail and weak appearing. HEENT: No pallor, no icterus. Pupils equal, round and reactive to light. Oral mucosa moist. NECK: No JVD, no neck masses. HEART: S1 and S2 heard. Regular rate and rhythm. + murmur, no gallop. RESPIRATORY SYSTEM: Normal AP diameter. No accessory muscle use. No wheezing, no crackles. ABDOMEN: Soft, bowel sounds present, nontender, no distention. CENTRAL NERVOUS SYSTEM: No facial droop. Speech is clear. Obeys simple commands. Moves extremities. EXTREMITIES: No edema, no erythema seen. Sking: macular rash over flexural aspect of forearm, over neck, chest and inguinal area , no rashes over the web spaces of fingers and toes. Discharge Data Allergies Allergy/AdvReac Type Severity Reaction Status Date / Time lisinopril Allergy Cough Verified 01/19/22 16:51 Consultations 03/07/22 21:47 ED Decision to Admit Stat Ordered Studies 03/07/22 20:28 CT femur RT wo con Urgent 03/07/22 23:47 CT femur RT wo con Stat Hospital Course (1) Acute UTI: Plan 71-year-old lady with PMH of chronic systolic heart failure secondary to ischemic cardiomyopathy [EF 20 to 25% on echo 2018], status post ICD, CAD, valvular heart disease, HTN, HLD, JEREMIE, DM 2 insulin requiring presented with complaint of fall on the day of . She reports that COVID back of her head against refrigerator door and slipped fell on her buttocks on the floor. She was found to have UTI and scabies infection at presentation in the ED. She was managed for the following: Generalized weakness Fall Fall on the day of , resulting in right hip/right thigh pain worse with walking. Admitting imagings: CXR-no acute findings. X-ray hip right with pelvis and x-ray femur right -no acute fracture or dislocation. Right femur CT - no acute fracture or dislocation. No right thigh fluid collection. Pt's son stated that she didn't hit her head, he stated they have camera in the home and somebody is with her 29/10. Pain control, PT/OT. Home w/ Home Health. Complicated UTI: No sepsis POA, patient complained of pain and burning with passing urine since . Patient started with Zosyn on 03/08, Rocephin 03/09, PO at DC. Cephalexin on DC. Loose stool 03/10, c diff negative, no loose stool on 03/11 so far, probiotic, loperamide prn. Electrolytes wnl. CKD stage IV: Baseline creatinine around 1.7-2.0. Admitting creatinine around baseline. Cr slightly bumped up 03/09, not enough to justify suoleymane over ckd, mild dehydration likely 2/2 very hot room/sweating. Cr better. Less likely Scabies: Status post topical permethrin on 03/08, Pt's son stated she always has such skin problem and itching and follows derm as OP, uses certain cream regularly which he said he will either bring to hospital or call the hospital w/ name when able. Off of isolation. Chronic pancytopenia: Awaiting outpatient hematology evaluation. Other chronic medical conditions: Chronic systolic heart failure status post ICD, CAD, valvular heart disease, HTN, HLD, JEREMIE on CPAP, DM 2 insulin requiring, mood disorder, mild dementia --- home meds as able. DVT prophylaxis: SCDs, thrombocytopenic patient. Full code Pt's Son Mr. Yousuf Ribera, contact #[phone]. given a phone call 03/08. Spent approx 14 min, answered all his questions. Having multiple loose stools today, c diff neg, likely dc dilcia pending bowel improvement. Patient being discharged to home with home health with following instruction at the point of discharge: Follow-up with your primary care physician within a week time and likely you will need blood test CBC/CMP. Complete the antibiotic course for your UTI. Maintain follow-up with your outpatient hematology evaluation. Take your medication as prescribed. Home Health Attestation I certify that this patient is under my care and that I, or a physicians reproductive healthcare assistant working with me, had a face to-face encounter that meets the home health [id number] encounter requirements with this patient. The encounter with the patient was in whole, or in part, for the following medical condition, which is the primary reason for home health care (list medical condition): I certify that, based on my findings, the following services are medically necessary home health services: My clinical findings support the need for the above services because: Further, I certify that my clinical findings support that this patient is homebound (i.e. absences from home require considerable and taxing effort and are for medical reasons or sikh services or infrequently or of short duration when for other reasons) because: Certification for Home Health Services: Based on the above findings, I certify that this patient is confined to the home and needs intermittent alf care, physical therapy and/or speech therapy or continues to need occupational therapy. The patient is under my care, and I have initiated the establishment of the plan of care. This patient will be followed by a physician who will periodically review the plan of care. Total Time Total Time Spent Total Time Spent (In Minutes): 40 Discharge Plan Discharge Items Patient Disposition: Home - Home Health Services Reason For Visit: COMP UTI Discharge Diagnosis: Generalized weakness Fall Complicated UTI Activity: Resume your previous activity Non-emergency contact: Primary Care Provider Call non-emergency contact if: you have any medication questions and your temperature is above 101 Follow-up/Referrals: Melissa Tovar MD [Primary Care Provider] - Diet: Carb Consistent or DM2 and Heart Healthy Addtl Attending Provider Instructions: Follow-up with your primary care physician within a week time and likely you will need blood test CBC/CMP. Complete the antibiotic course for your UTI. Maintain follow-up with your outpatient hematology evaluation. Take your medication as prescribed. Pending Studies at Discharge: No Stand-Alone Forms: My [employer], Smoking Cessation Medications and DC Order Prescriptions: New Advanced Probiotic 625 mg (10 billion cell) Capsule 2 cap PO DAILY 7 Days Qty: 14 0RF loperamide 2 mg Capsule 2 mg PO Q8H PRN (Reason: loose stool) 3 Days Qty: 9 0RF cephalexin 500 mg tablet 500 mg PO BID 5 Days Qty: 10 0RF Continued sertraline 100 mg Tablet 100 mg PO HS insulin glargine [Basaglar KwikPen U-100 Insulin] 100 unit/mL (3 mL) Insulin Pen 15 unit SUBCUT HS gabapentin 100 mg capsule 100 mg PO QAM aspirin [Ecotrin Low Strength] 81 mg Tablet,Delayed Release (Dr/Ec) 81 mg PO QAM Qty: 30 0RF nitroglycerin [Nitrostat] 0.4 mg Tablet, Sublingual 0.4 mg sublingual UD PRN (Reason: chest pain) Qty: 5 0RF acetaminophen 325 mg Tablet 650 mg PO Q4H PRN (Reason: Fever/pain) metoprolol succinate 50 mg tablet extended release 24 hr 50 mg PO BID Victoza 3-Jaime 0.6 mg/0.1 mL (18 mg/3 mL) pen injector 1.8 mg SUBCUT HS furosemide 40 mg tablet 40 mg PO [id number] Rx Instructions: take in morning of saturday,saturday,fridays rosuvastatin [Crestor] 20 mg Tablet 20 mg PO QAM Qty: 30 0RF ketoconazole 2 % shampoo 1 applic TOPICAL UD mirtazapine 15 mg tablet 7.5 mg PO HS cholecalciferol (vitamin D3) [Vitamin D3] 25 mcg (1,000 unit) Tablet 25 mcg PO DAILY Discharge Orders: Discharge Order (Routine); Ordered 03/11/22 Ordered By: Ermelinda Guan Admission Data Admit Date/Time: 03/07/22 23:56 Attending Provider: Ermelinda Guan Admit Provider: Joao Kothari Primary Care Provider: Melissa Tovar Other Providers: Joao Kothari
== END 2022-03-11 14:02 | disposition home health service (06) | DRG 690 ==
LOC: ED 15:53 → 3W 23:56

== ENCOUNTER 2022-06-19 11:52 | Inpatient (IN) ==
--- NOTE | 2022-06-19 12:31 | Emergency Department Note ---
Impression & Plan Weakness, CHF (congestive heart failure), Pancytopenia, SOB (shortness of breath), Pedal edema ED Provider Note NAME: MONET FREY AGE: 72 SEX: F : 1950 ARRIVES VIA: Walk-In INFORMANT: [Patient] ED PROVIDER(S): [Nicolas Olson MD] CHIEF COMPLAINT: Illness HISTORY OF PRESENT ILLNESS: The patient is a 72-year-old female who presents to the ED with complaints of increasing weakness over the last 3 days. She was having a hard time walking 2 days ago but then today, cannot stand. Both legs are weak. She feels somewhat short of breath. The patient believes this all has something to do with her Lasix being changed last week. She had her dose cut in half. She has noticed some leg edema, she has not had cough or chest congestion. No fever, no chest pain or abdominal pain. She does occasionally have some burning to urinate. PMHx/PSHx: See Below SOCIAL HISTORY: See Below. PHYSICAL EXAM: GENERAL: Patient is in no acute distress. HEENT: No acute trauma, normocephalic atraumatic, mucous membranes dry, no nasal congestion. NECK: No stridor, no adenopathy, no meningismus, trachea is midline. LUNGS: Clear to auscultation bilaterally, no wheeze, no rhonchi, breath sounds equal. HEART: Without murmurs gallops or rubs, regular rate and rhythm. ABDOMEN: Soft, nontender, bowel sounds positive, no peritonitis. EXTREMITIES: No cyanosis, mild bilateral pedal edema, full range of motion of all the joints without pain or difficulty, no signs for acute trauma. NEUROLOGIC: Oriented x 3, no speech slur or facial droop. No extremity drift when testing the upper extremities, no cerebellar dysfunction to the upper extremities. Both lower extremities are quite weak and she can not really lift either off the bed. SKIN: No rash, no jaundice, no diaphoresis. DIFFERENTIAL DIAGNOSIS: Dehydration, electrolyte imbalance, renal or liver failure, UTI, stroke, infection, anemia, CHF, OR, among others. EMERGENCY DEPARTMENT COURSE/PROCEDURES: Prior/Outside records reviewed: None. ECG per my interpretation: Indication was weakness. The ECG shows looks to be a normal sinus rhythm with a rate of 88. There are inverted T waves in the inferior and lateral leads. There is no ST elevation. No PVCs. The QTc is 481. Compared to an ECG from 07 March 2022, I see no significant change. Continuous Cardiac Monitoring per my interpretation: An order was placed for continuous cardiac monitoring. The monitor shows a rate of 91 with normal sinus rhythm. Critical Care Note: I have personally spent 43 minutes of critical care time in the direct management of this patient. This includes bedside care, interpretation of diagnostic studies, and testing, discussion with consultants, patient, and family members, and other required patient management activities. This 43 minutes is in excess of all separately billable procedures. MEDICAL DECISION MAKING: There is a lower white count, hemoglobin and platelet count, this finding has been documented before. The patient's values today are within her typical range s. Creatinine was high however, the patient has a history of renal insufficiency. No electrolyte abnormality in need of emergent correction. Lactic acid level was not elevated making severe sepsis less likely. No concerning liver enzyme elevation. The patient appeared to be in a euthyroid state. ECG shows a normal sinus rhythm, there are some T wave inversions but these are unchanged compared to previous ECGs. Cardiac enzyme testing x1 is slightly elevated however, the patient has a history of a mild troponin elevation. Urinalysis does show potential infection, urine culture is pending. COVID, influenza and RSV test were negative. BNP was elevated consistent with CHF and fluid overload. Chest x-ray suggest some CHF per my review. On exam, the patient's lower extremities were quite weak but the weakness was equal in both legs. There was no upper extremity weakness or drift found. There was no speech slur. A brain CT was done because of her weakness, no acute bleed or mass effect found. Of note, a stroke alert was not called as the patient's symptoms have been ongoing for around 3 days. TNK would not be indicated. The patient initially received a 500 cc saline bolus as she appeared clinically dry. When the findings of CHF were noted, she was given 40 mg of IV Lasix to help with diuresis. She was given IV cefepime for empiric antibiotic coverage. Patient is too weak to walk. She appears to be in heart failure. She may have a UTI. I do think she requires a hospital stay, further work-up and care. I spoke with the patient and case management, the on-call hospitalist was consulted. DISPOSITION: The patient's presentation and findings warrant a hospital stay. Past Med/Surg History Medical History Anemia Anxiety and depression Aortic stenosis Chronic renal disease, stage IV Chronic systolic heart failure Dementia DM II (diabetes mellitus, type II), controlled GERD (gastroesophageal reflux disease) Hyperkalemia Hyperlipidemia LDL goal <70 Hypertension Moderate mitral regurgitation NSTEMI (non-ST elevated myocardial infarction) 2014?--follows with Dr. Charles Sensorineural hearing loss (SNHL) of both ears Surgical History AICD (automatic cardioverter/defibrillator) present 2018--meditronic @ [facility] History of appendectomy History of bilateral cataract extraction History of open reduction and internal fixation (ORIF) procedure ankle fx---hardware in place History of tubal ligation Status post cholecystectomy Family History Mother Family history of diabetes mellitus Brother Family history of diabetes mellitus Sister Family history of diabetes mellitus Other No family history of adverse response to anesthesia Social History Smoking Status: Never smoker Second Hand Exposure: No; Hx Alcohol Use: No Hx Substance Use: No Preferred Language: French Communication Ability: Effective Oval Or Circular Glass Cutter Required: No Beliefs That Will Affect Care: None marital status: / Current Living Situation: Family Current Living Situation Comment: Lives with one daughter above sons garage made into apartment. How many Children do You have: 3 Feels Safe at Home: Yes Assistive Devices: Walker Allergies Allergies Allergy/AdvReac Type Severity Reaction Status Date / Time lisinopril AdvReac Intermediate Cough Verified 06/19/22 15:41 Home Meds Home Medications Medication Instructions Recorded Confirmed gabapentin 100 mg capsule 100 mg PO QAM 02/04/19 06/19/22 acetaminophen 325 mg tablet 650 mg PO Q4H PRN Fever/pain 03/04/19 06/19/22 metoprolol succinate 50 mg 50 mg PO BID 03/04/19 06/19/22 tablet,extended release 24 hr insulin glargine 100 unit/mL (3 15 unit subcut HS 09/08/19 06/19/22 mL) subcutaneous pen (Basaglar KwikPen U-100 Insulin) sertraline 100 mg tablet 100 mg PO HS 09/08/19 06/19/22 liraglutide 0.6 mg/0.1 mL (18 mg/3 1.8 mg subcut HS 12/26/21 06/19/22 mL) subcutaneous pen injector (Victoza 3-Jaime) furosemide 40 mg tablet 20 mg PO 3XWK 12/27/21 06/19/22 ketoconazole 2 % shampoo 1 applic topical 3XWK 01/19/22 06/19/22 cholecalciferol (vitamin D3) 25 25 mcg PO DAILY 03/07/22 06/19/22 mcg (1,000 unit) tablet (Vitamin D3) mirtazapine 15 mg tablet 7.5 mg PO HS 03/07/22 06/19/22 Previous Rx's Medication Instructions Recorded aspirin 81 mg tablet,delayed 81 mg PO QAM #30 tabs 02/11/19 release (Ecotrin Low Strength) nitroglycerin 0.4 mg sublingual 0.4 mg sublingual UD PRN chest 02/11/19 tablet (Nitrostat) pain #5 tabs rosuvastatin 20 mg tablet (Crestor) 20 mg PO QAM #30 tabs 01/02/22 Results & Data (ED) Vital Signs Vital Signs - 24 hr 06/19/22 12:01 06/19/22 12:31 06/19/22 12:15 Temperature 36.6 C Temperature Source Temporal Artery Scan Pulse Rate 97 H 91 H 95 H Pulse Rate from SpO2 Sensor Respiratory Rate 18 Respiratory Depth Normal Blood Pressure 109/64 Blood Pressure Mean 79 Blood Pressure Position Sitting Pulse Oximetry 97 98 Oxygen Delivery Method Room Air Room Air Sepsis Recent Fever Within 48 Hours No Sepsis New/Unexplained Change in Mental Status No Sepsis Action Taken by Nursing No Action Required 06/19/22 12:13 06/19/22 12:30 06/19/22 12:30 Temperature Temperature Source Pulse Rate 94 H 90 Pulse Rate from SpO2 Sensor 88 Respiratory Rate 23 17 Respiratory Depth Blood Pressure 101/59 L Blood Pressure Mean 73 Blood Pressure Position Pulse Oximetry 96 Oxygen Delivery Method Sepsis Recent Fever Within 48 Hours Sepsis New/Unexplained Change in Mental Status Sepsis Action Taken by Nursing 06/19/22 13:00 06/19/22 13:30 06/19/22 14:00 Temperature Temperature Source Pulse Rate 90 91 H 91 H Pulse Rate from SpO2 Sensor 89 91 H 86 Respiratory Rate 15 15 18 Respiratory Depth Blood Pressure Blood Pressure Mean Blood Pressure Position Pulse Oximetry 99 96 96 Oxygen Delivery Method Sepsis Recent Fever Within 48 Hours Sepsis New/Unexplained Change in Mental Status Sepsis Action Taken by Nursing 06/19/22 14:30 06/19/22 15:00 06/19/22 15:30 Temperature Temperature Source Pulse Rate 94 H 96 H 96 H Pulse Rate from SpO2 Sensor 97 H 98 H 97 H Respiratory Rate 34 H 18 21 Respiratory Depth Blood Pressure 127/80 Blood Pressure Mean 95 Blood Pressure Position Pulse Oximetry 95 100 88 L Oxygen Delivery Method Sepsis Recent Fever Within 48 Hours Sepsis New/Unexplained Change in Mental Status Sepsis Action Taken by Alf Medications Current Medication List: was personally reviewed by me Laboratory Data Attestation: I reviewed the patient's lab results. 06/19/22 12:23 06/19/22 12: Lab Results 06/19/22 06/19/22 06/19/22 Range/Units 12:23 12:23 12:23 WBC 2.47 L (4.8-10.8) K/ul RBC 3.15 L (4.20-5.40) M/uL Hgb 10.5 L (12.0-16.0) g/dl Hct 32.7 L (37.0-47.0) % MCV 103.8 H (80.0-100.0) fL MCH 33.3 (25.0-34.0) pg MCHC 32.1 (32.0-36.0) g/dL RDW Std Deviation 61.8 H (36.4-46.3) fL RDW Coeff of Nevaeh 16.1 H (11.5-14.5) % Plt Count 52 L (130-400) K/uL MPV 11.7 (9.4-12.4) fL Immature Gran % (Auto) 2.8 % Neut % (Auto) 55.1 % Lymph % (Auto) 32.4 % [place] % (Auto) 8.5 % Eos % (Auto) 0.8 % Baso % (Auto) 0.4 % Neut # (Auto) 1.36 L (1.40-6.50) K/uL Lymph # (Auto) 0.80 L (1.2-3.4) K/uL [place] # (Auto) 0.21 (0.11-0.59) K/uL Eos # (Auto) 0.02 (0-0.50) K/uL Baso # (Auto) 0.01 (0-0.2) K/uL Immature Gran # (Auto) 0.07 (0.01-0.20) K/uL Sodium 137 (136-145) mmol/L Potassium 4.6 (3.5-5.1) mmol/L Chloride 104 (98-107) mmol/L Carbon Dioxide 26 (21-32) mmol/L Anion Gap 7 (3-11) BUN 74 H (6-23) mg/dl Creatinine 2.09 H (0.6-1.2) mg/dl Est Cr Clr Drug Dosing Not Reportable Est GFR ( Amer) 26.5 ml/min Est GFR (Non-Af Amer) 22.9 ml/min BUN/Creatinine Ratio 35.4 H (10-20) Glucose 222 H (70-99(Fasting)) mg/dl Lactate (0.4-2.0) mmol/L Calcium 9.2 (8.5-10.1) mg/dl Magnesium 2.2 (1.7-2.4) mg/dl Total Bilirubin 0.8 (0.2-1.0) mg/dl AST 38 (13-39) U/L ALT 42 (7-52) U/L Alkaline Phosphatase 93 (34-104) U/L Troponin I High Sens 19.6 H (0-14) pg/ml B-Natriuretic Peptide (0-100) pg/ml Total Protein 7.6 (6.0-8.3) gm/dl Albumin 4.0 (3.4-5.0) gm/dl Globulin 3.6 (2.5-4.0) gm/dl Albumin/Globulin Ratio 1.1 (0.9-2) TSH 2.685 (0.300-4.500) uIu/ml Urine Color Urine Appearance (Clear) Urine pH (4.5-7.5) Ur Specific Lyons (1.000-1.030) Urine Protein (Negative) Urine Glucose (UA) (Negative) Urine Ketones (Negative) Urine Blood (Negative) Urine Nitrite (Negative) Urine Bilirubin (Negative) Urine Urobilinogen (Negative) Ur Leukocyte Esterase (Negative) Urine WBC (Auto) (0-5) /hpf Urine RBC (Auto) (0-4) /hpf U Hyaline Cast (Auto) (0-5) /lpf U Epithel Cells (Auto) (0-5) /lpf Urine Bacteria (Auto) (Negative) SARS-CoV-2 (PCR) (Negative) Influenza Type A (PCR) (Neg) Influenza Type B (PCR) (Neg) RSV (RT-PCR) (Neg) 06/19/22 06/19/22 06/19/22 Range/Units 12:23 13:00 14:23 WBC (4.8-10.8) K/ul RBC (4.20-5.40) M/uL Hgb (12.0-16.0) g/dl Hct (37.0-47.0) % MCV (80.0-100.0) fL MCH (25.0-34.0) pg MCHC (32.0-36.0) g/dL RDW Std Deviation (36.4-46.3) fL RDW Coeff of Nevaeh (11.5-14.5) % Plt Count (130-400) K/uL MPV (9.4-12.4) fL Immature Gran % (Auto) % Neut % (Auto) % Lymph % (Auto) % [place] % (Auto) % Eos % (Auto) % Baso % (Auto) % Neut # (Auto) (1.40-6.50) K/uL Lymph # (Auto) (1.2-3.4) K/uL [place] # (Auto) (0.11-0.59) K/uL Eos # (Auto) (0-0.50) K/uL Baso # (Auto) (0-0.2) K/uL Immature Gran # (Auto) (0.01-0.20) K/uL Sodium (136-145) mmol/L Potassium (3.5-5.1) mmol/L Chloride (98-107) mmol/L Carbon Dioxide (21-32) mmol/L Anion Gap (3-11) BUN (6-23) mg/dl Creatinine (0.6-1.2) mg/dl Est Cr Clr Drug Dosing Est GFR ( Amer) ml/min Est GFR (Non-Af Amer) ml/min BUN/Creatinine Ratio (10-20) Glucose (70-99(Fasting)) mg/dl Lactate 1.1 (0.4-2.0) mmol/L Calcium (8.5-10.1) mg/dl Magnesium (1.7-2.4) mg/dl Total Bilirubin (0.2-1.0) mg/dl AST (13-39) U/L ALT (7-52) U/L Alkaline Phosphatase (34-104) U/L Troponin I High Sens (0-14) pg/ml B-Natriuretic Peptide 2118 H (0-100) pg/ml Total Protein (6.0-8.3) gm/dl Albumin (3.4-5.0) gm/dl Globulin (2.5-4.0) gm/dl Albumin/Globulin Ratio (0.9-2) TSH (0.300-4.500) uIu/ml Urine Color Urine Appearance (Clear) Urine pH (4.5-7.5) Ur Specific Lyons (1.000-1.030) Urine Protein (Negative) Urine Glucose (UA) (Negative) Urine Ketones (Negative) Urine Blood (Negative) Urine Nitrite (Negative) Urine Bilirubin (Negative) Urine Urobilinogen (Negative) Ur Leukocyte Esterase (Negative) Urine WBC (Auto) (0-5) /hpf Urine RBC (Auto) (0-4) /hpf U Hyaline Cast (Auto) (0-5) /lpf U Epithel Cells (Auto) (0-5) /lpf Urine Bacteria (Auto) (Negative) SARS-CoV-2 (PCR) NEGATIVE (Negative) Influenza Type A (PCR) Negative (Neg) Influenza Type B (PCR) Negative (Neg) RSV (RT-PCR) Negative (Neg) 06/19/22 Range/Units 14:34 WBC (4.8-10.8) K/ul RBC (4.20-5.40) M/uL Hgb (12.0-16.0) g/dl Hct (37.0-47.0) % MCV (80.0-100.0) fL MCH (25.0-34.0) pg MCHC (32.0-36.0) g/dL RDW Std Deviation (36.4-46.3) fL RDW Coeff of Nevaeh (11.5-14.5) % Plt Count (130-400) K/uL MPV (9.4-12.4) fL Immature Gran % (Auto) % Neut % (Auto) % Lymph % (Auto) % [place] % (Auto) % Eos % (Auto) % Baso % (Auto) % Neut # (Auto) (1.40-6.50) K/uL Lymph # (Auto) (1.2-3.4) K/uL [place] # (Auto) (0.11-0.59) K/uL Eos # (Auto) (0-0.50) K/uL Baso # (Auto) (0-0.2) K/uL Immature Gran # (Auto) (0.01-0.20) K/uL Sodium (136-145) mmol/L Potassium (3.5-5.1) mmol/L Chloride (98-107) mmol/L Carbon Dioxide (21-32) mmol/L Anion Gap (3-11) BUN (6-23) mg/dl Creatinine (0.6-1.2) mg/dl Est Cr Clr Drug Dosing Est GFR ( Amer) ml/min Est GFR (Non-Af Amer) ml/min BUN/Creatinine Ratio (10-20) Glucose (70-99(Fasting)) mg/dl Lactate (0.4-2.0) mmol/L Calcium (8.5-10.1) mg/dl Magnesium (1.7-2.4) mg/dl Total Bilirubin (0.2-1.0) mg/dl AST (13-39) U/L ALT (7-52) U/L Alkaline Phosphatase (34-104) U/L Troponin I High Sens (0-14) pg/ml B-Natriuretic Peptide (0-100) pg/ml Total Protein (6.0-8.3) gm/dl Albumin (3.4-5.0) gm/dl Globulin (2.5-4.0) gm/dl Albumin/Globulin Ratio (0.9-2) TSH (0.300-4.500) uIu/ml Urine Color Yellow Urine Appearance Clear (Clear) Urine pH 5.5 (4.5-7.5) Ur Specific [place] 1.016 (1.000-1.030) Urine Protein Trace H (Negative) Urine Glucose (UA) Negative (Negative) Urine Ketones Negative (Negative) Urine Blood Trace H (Negative) Urine Nitrite Negative (Negative) Urine Bilirubin Negative (Negative) Urine Urobilinogen Negative (Negative) Ur Leukocyte Esterase 3+ H (Negative) Urine WBC (Auto) 10-30 H (0-5) /hpf Urine RBC (Auto) 0-4 (0-4) /hpf U Hyaline Cast (Auto) 0 (0-5) /lpf U Epithel Cells (Auto) 5-10 H (0-5) /lpf Urine Bacteria (Auto) 1+ H (Negative) SARS-CoV-2 (PCR) (Negative) Influenza Type A (PCR) (Neg) Influenza Type B (PCR) (Neg) RSV (RT-PCR) (Neg) Administered Medications Discontinued Medications Furosemide (Furosemide 40 Mg/4 Ml Vial) 40 mg IV ONE ONE Stop: 06/19/22 15:18 Last Admin: 06/19/22 15:39 Dose: 40 mg Documented By: ANN Sodium Chloride (Nss) 500 mls @ 999 mls/hr IV .Q31M TED Stop: 06/19/22 13:15 Last Infusion: 06/19/22 14:31 Dose: 0 mls/hr Documented By: Admin: 06/19/22 12:51 Dose: 999 mls/hr Documented By: TAMMY Cefepime HCl (Maxipime) 2,000 mg in 20 mls @ 5 mls/min IV NOW STA; Protocol Stop: 06/19/22 14:14 Last Admin: 06/19/22 14:35 Dose: 5 mls/min Documented By: TAMMY Imaging Data Radiologist's Impression: Chest X-Ray 06/19/22 00:00 XR chest 1V portable CLINICAL HISTORY: dyspnea TECHNIQUE: Single frontal radiograph of the chest was obtained. Comparison: Comparison is made to chest radiograph 03/07/2022 FINDINGS: Defibrillator is seen. Calcified aortic knob is seen. Faint bibasilar airspace opacities are seen. No evidence of pleural effusion or pneumothorax. IMPRESSION: Faint bibasilar airspace opacities which may represent atelectasis, pneumonia, and/or aspiration. ACT 112: Negative or not required by law. Electronically signed by: Gerber Ramos M.D. 06/19/2022 1:[address] 03/14/23 12:31 CT SCAN OF THE BRAIN WITHOUT IV CONTRAST CLINICAL HISTORY: Generalized weakness. COMPARISON STUDY: CT of the brain dated 12/27/2021. TECHNIQUE: Unenhanced axial CT scan of the brain is performed from the vertex to the skull base. A dose lowering technique was utilized adhering to the principles of ALARA. CT DOSE: 537.48 mGy.cm FINDINGS: Brain parenchyma: There is age-related involutional change noting moderate subcortical and periventricular microangiopathic disease. There is no hemorrhage, mass effect, or evidence of acute territorial ischemia by CT criteri a. Espinoza-white matter differentiation is preserved. No extra-axial fluid collection is seen. Ventricles, sulci, cisterns: Prominent secondary to involutional change. Intracranial vasculature: There is atherosclerotic calcification of the cavernous carotid and vertebral arteries. Calvarium: Unremarkable. Sinuses and mastoids: The visualized paranasal sinuses are clear. The mastoid air cells are well pneumatized. Orbits: The bony orbits are grossly intact. There are bilateral ocular lens implants. IMPRESSION: There is no hemorrhage, mass effect, or evidence of acute territorial ischemia by CT criteria. ACT 112: Negative or not required by law. Electronically signed by: Nicolas Wang M.D. 06/19/2022 2:01 PM Discharge Plan Visit Data Chief Complaint: Illness Stated Complaint: FLUID IN LUNGS ED Provider: Nicolas Olson Discharge Problem: Weakness, CHF (congestive heart failure), Pancytopenia, SOB (shortness of breath), Pedal edema Patient Disposition: Admitted As Inpatient Condition: Fair Forms Stand Alone Forms: My [facility] Prescriptions Prescriptions: No Action sertraline 100 mg Tablet 100 mg PO HS insulin glargine [Basaglar KwikPen U-100 Insulin] 100 unit/mL (3 mL) Insulin Pen 15 unit SUBCUT HS gabapentin 100 mg capsule 100 mg PO QAM aspirin [Ecotrin Low Strength] 81 mg Tablet,Delayed Release (Dr/Ec) 81 mg PO QAM Qty: 30 0RF nitroglycerin [Nitrostat] 0.4 mg Tablet, Sublingual 0.4 mg sublingual UD PRN (Reason: chest pain) Qty: 5 0RF acetaminophen 325 mg Tablet 650 mg PO Q4H PRN (Reason: Fever/pain) metoprolol succinate 50 mg tablet extended release 24 hr 50 mg PO BID Victoza 3-Jaime 0.6 mg/0.1 mL (18 mg/3 mL) pen injector 1.8 mg SUBCUT HS furosemide 40 mg tablet 20 mg PO 3XWK Rx Instructions: PER FAMILY "GAVE 40 MG ON SATURDAY". PER GMG 20 MG 3XWK, take in morning of saturday,saturday,fridays rosuvastatin [Crestor] 20 mg Tablet 20 mg PO QAM Qty: 30 0RF ketoconazole 2 % shampoo 1 applic TOPICAL 3XWK mirtazapine 15 mg tablet 7.5 mg PO HS cholecalciferol (vitamin D3) [Vitamin D3] 25 mcg (1,000 unit) Tablet 25 mcg PO DAILY Referrals Referrals: Melissa Tovar MD [Primary Care Provider] -
[2022-06-19] MEDS ORDERED: SODIUM CHLORIDE 0.9% 500 ML IV SCH (12:45)
[2022-06-19 12:50] LABS: Basophils # (auto) 0.01 K/uL (0-0.2); Basophils % (auto) 0.4 %; Eosinophils # (auto) 0.02 K/uL (0-0.50); Eosinophils % (auto) 0.8 %; Hematocrit (blood only) 32.7 % (37.0-47.0); Hemoglobin 10.5 g/dl (12.0-16.0); Immature Granulocytes # (auto) 0.07 K/uL (0.01-0.20); Immature Granulocytes % (auto) 2.8 %; Lymphocytes % (auto) 32.4 %; Mean Corpuscular Hemoglobin 33.3 pg (25.0-34.0); Mean Corpuscular Hgb Conc 32.1 g/dL (32.0-36.0); Mean Corpuscular Volume 103.8 fL (80.0-100.0); Mean Platelet Volume 11.7 fL (9.4-12.4); Monocytes # (auto) 0.21 K/uL (0.11-0.59); Monocytes % (auto) 8.5 %; Neutrophils # (auto) 1.36 K/uL (1.40-6.50); Neutrophils % (auto) 55.1 %; Platelet Count 52 K/uL (130-400); RDW Coefficient of Variation 16.1 % (11.5-14.5); RDW Standard Deviation 61.8 fL (36.4-46.3); Red Blood Count 3.15 M/uL (4.20-5.40); White Blood Count 2.47 K/ul (4.8-10.8)
[2022-06-19 13:03] LABS: Alanine Aminotransferase 42 U/L (7-52); Albumin Globulin Ratio 1.1 (0.9-2); Alkaline Phosphatase 93 U/L (34-104); Anion Gap 7 (3-11); Aspartate Aminotransferase 38 U/L (13-39); BUN Creatinine Ratio 35.4 (10-20); Bilirubin,Total 0.8 mg/dl (0.2-1.0); Blood Urea Nitrogen 74 mg/dl (6-23); Calcium 9.2 mg/dl (8.5-10.1); Carbon Dioxide 26 mmol/L (21-32); Chloride 104 mmol/L (98-107); Est GFR (African American) 26.5 ml/min; Est GFR (Non-African American) 22.9 ml/min; Globulin 3.6 gm/dl (2.5-4.0); Glucose 222 mg/dl (70-99(Fasting)); Magnesium 2.2 mg/dl (1.7-2.4); Potassium 4.6 mmol/L (3.5-5.1); Sodium 137 mmol/L (136-145); Total Protein 7.6 gm/dl (6.0-8.3)
[2022-06-19 13:09] LABS: Troponin I High Sensitivity 19.6 pg/ml (0-14)
--- NOTE | 2022-06-19 13:11 | XRay Report ---
XR chest 1V portable CLINICAL HISTORY: dyspnea TECHNIQUE: Single frontal radiograph of the chest was obtained. Comparison: Comparison is made to chest radiograph 03/07/2022 FINDINGS: Defibrillator is seen. Calcified aortic knob is seen. Faint bibasilar airspace opacities are seen. No evidence of pleural effusion or pneumothorax. IMPRESSION: Faint bibasilar airspace opacities which may represent atelectasis, pneumonia, and/or aspiration. ACT 112: Negative or not required by law. Electronically signed by: Gerber Ramos M.D. 06/19/2022 1:10 PM
[2022-06-19 13:49] LABS: Influenza A virus by PCR Negative (Neg); Influenza B virus by PCR Negative (Neg); RSV by PCR Negative (Neg); SARS CoV2 RNA(COVID-19) Ceph NEGATIVE (Negative)
--- NOTE | 2022-06-19 14:02 | CT Scan Report ---
CT SCAN OF THE BRAIN WITHOUT IV CONTRAST CLINICAL HISTORY: Generalized weakness. COMPARISON STUDY: CT of the brain dated 12/27/2021. TECHNIQUE: Unenhanced axial CT scan of the brain is performed from the vertex to the skull base. A do se lowering technique was utilized adhering to the principles of ALARA. CT DOSE: 537.48 mGy.cm FINDINGS: Brain parenchyma: There is age-related involutional change noting moderate subcortical and periventri cular microangiopathic disease. There is no hemorrhage, mass effect, or evidence of acute territorial ischemia by CT criteria. Espinoza-white matter differentiation is preserved. No extra-axial fluid collec tion is seen. Ventricles, sulci, cisterns: Prominent secondary to involutional change. Intracranial vasculature: There is atherosclerotic calcification of the cavernous carotid and vertebr al arteries. Calvarium: Unremarkable. Sinuses and mastoids: The visualized paranasal sinuses are clear. The mastoid air cells are well pneu matized. Orbits: The bony orbits are grossly intact. There are bilateral ocular lens implants. IMPRESSION: There is no hemorrhage, mass effect, or evidence of acute territorial ischemia by CT onelia [place]ning[place]. ACT 112: Negative or not required by law. Electronically signed by: Nicolas Wang M.D. 06/19/2022 2:01 PM
[2022-06-19] MEDS ORDERED: CEFEPIME 2,000 MG/20 ML VIAL IV STA (14:11)
[2022-06-19 15:06] LABS: Appearance Urine Clear (Clear); Bacteria Urine Automated 1+ (Negative); Bilirubin Urine Negative (Negative); Blood Urine Trace (Negative); Cast Urine Automated 0 /lpf (0-5); Color Urine Yellow; Glucose Urine UA Negative (Negative); Ketones Urine Negative (Negative); Leukocyte Esterase Urine 3+ (Negative); Nitrite Urine Negative (Negative); Protein Urine Trace (Negative); RBC Urine Automated 0-4 /hpf (0-4); Specific Gravity Urine 1.016 (1.000-1.030); Urobilinogen Urine Negative (Negative); pH Urine 5.5 (4.5-7.5)
[2022-06-19] MEDS ORDERED: FUROSEMIDE 40 MG/4 ML VIAL IV ONE (15:17)
--- NOTE | 2022-06-19 15:38 | History & Physical Report ---
Date of Service June 19, 2022 Assessment & Plan (1) Acute on chronic systolic CHF (congestive heart failure): (2) Hypertension: (3) Ischemic cardiomyopathy: (4) AICD (automatic cardioverter/defibrillator) present: (5) Aortic stenosis: Plan: -Admit to [facility] with telemetry -Last echo was completed in March 2020, showing an LVEF of 20 to 24%, thinning of the septum, left ventricular cavity is mildly enlarged, moderate aortic stenosis is suspected, mild MR is present - repeat 2D echo during this hospital stay -Initial troponin is 19, trend x1 more set -BNP 2117 -CXR appears fluid overloaded, trace pitting edema in bilateral lower legs, + crackles on lung exam. Will recheck CXR in am to evaluate for diuresis and can adjust diuretic. -Strict I/Os, daily weights, fluid restriction of 1500ml -Initial Lasix 40 mg IV administered in the ER, - con p.o. furosemide which was recently reduced in half for 1 week timeframe and then resumed 40 mg x 1 dose 2 days ago. Typically uses lasix 3x per week. Previoulsy was on this 5x per week several months ago. -Consult cardiology with history of cardioverter/defibrillator and chf exacerbation -Consult nephrology as they have been managing diuretic in the outpatient setting (6) Pancytopenia: Plan: -Overall persistent pancytopenia, following with Dr. Caruso, scheduled to see him as outpatient on 07/13/2022 - No spontaneous bleeding - No leukocytosis to suspect infection currently, afebrile. - Rash over lower legs from MDS? (7) DM II (diabetes mellitus, type II), controlled: Plan: -Last A1c was 7.5 in December 2021, repeat -ISS with Accu-Cheks -Home Lantus 15 units at bedtime, reduce in half (8) UTI (urinary tract infection): Plan: - Follow urine culture, UA appears dirty, given dose of cefepime in the ER. Will continue with ceftriaxone and add probiotic with hx of diarrhea. Pt denies any urinary symptoms. Can dc abx if nothing grows from culture. - Memory issues likley exacerbated by acute infection, son provides hx of possible early onset dementia - monitor (9) CKD (chronic kidney disease): Plan: - Cr. 2.09/BUN 74, appears to be near baseline - Consult nephrology, follows with Dr. Syed as an outpatient DVT ppx - scds, no chemical ppx in the setting of thrombocytopenia CODE: Full code Dispo: From home, likely to remain in the hospital x 1-2 days A total of 78 minutes were spent with greater than 50% of that time face to face with the patient, personally reviewing all current laboratories, imaging studies, past medication reconciliation, outpatient chart review, and discussion with specialists to collaborate care for the patient with attending. Please see attending documentation for corrections and/or additions. History of Present Illness Chief Complaint: Generalized weakness Primary Care Provider: Melissa Tovar MD This is a 72-year-old female with PMHx of chronic systolic CHF, history of [place], ischemic cardiomyopathy, AICD, aortic stenosis, HTN, DM type II, CKD stage IV, anemia of chronic renal failure, pancytopenia who presents to the hospital with acute onset of weakness. She reports "Today is my birthday, but it is not a great day." This morning when she work up, she felt like she could just not move her legs. Diuretic was cut in half recently due to being dehydrated, but cannot say exactly when this was changed or what the doses were. She states her son, Yousuf, who lives in the apartment near her manages all her medications. She does not know any of her other medications. Pt denies any issues with breathing or chest pain. Pt notes dry weight is 131, and that he legs were much more swollen yesterday than they are today. Discussion held with her son Andrea over the phone. He notes that she "fell", on Saturday, where she sat down on her butt, due to some weakness after having dinner out at [employer] for her birthday celebration. Son notes she weighed 133 yesterday. Previously she has weighed as low as 120lbs, and was placed on Remeron for appetite stimulant for the past 3-4 months. She uses a protein shake daily. Pt was working with Dr. Syed and due to appearing like she looked dry, and Lasix was reduced to 20 mg every other day for about a week. Due to increased swelling in her lower legs, her son restarted the normal dosing about 2 days ago. Son thinks she was having difficulty with walking due to shortness of breath as well as weakness. Son reports that Radha fabricates stories and is notes that she exaggerates symptoms at times, becoming more forgetful about what she tells people, and thinks that she has fallen but she truthfully has not as they have a security camera/monitor for her apartment to know if anything happens to her. He reports that she has never formally been diagnosed with dementia however is concerned this may be the beginning of such. She does not wear oxygen at baseline, but does have a cpap at night. Son reports also that if we are to start an antibiotic for possible UTI, she had diarrhea for a month after being on an antibiotic previously. To his knowledge she did not have c. diff infection ever. Allergies Allergy/AdvReac Type Severity Reaction Status Date / Time lisinopril AdvReac Intermediate Cough Verified 06/19/22 15:41 Home Medications Medication Instructions Recorded Confirmed Type gabapentin 100 mg capsule 100 mg PO QAM 02/04/19 06/19/22 History aspirin 81 mg tablet,delayed 81 mg PO QAM #30 tabs 02/11/19 06/19/22 Rx release (Ecotrin Low Strength) nitroglycerin 0.4 mg sublingual 0.4 mg sublingual UD PRN chest 02/11/19 06/19/22 Rx tablet (Nitrostat) pain #5 tabs acetaminophen 325 mg tablet 650 mg PO Q4H PRN Fever/pain 03/04/19 06/19/22 History metoprolol succinate 50 mg 50 mg PO BID 03/04/19 06/19/22 History tablet,extended release 24 hr insulin glargine 100 unit/mL (3 15 unit subcut HS 09/08/19 06/19/22 History mL) subcutaneous pen (Basaglar KwikPen U-100 Insulin) sertraline 100 mg tablet 100 mg PO HS 09/08/19 06/19/22 History liraglutide 0.6 mg/0.1 mL (18 mg/3 1.8 mg subcut HS 12/26/21 06/19/22 History mL) subcutaneous pen injector (Victoza 3-Jaime) furosemide 40 mg tablet 20 mg PO 3XWK 12/27/21 06/19/22 History rosuvastatin 20 mg tablet (Crestor) 20 mg PO QAM #30 tabs 01/02/22 06/19/22 Rx ketoconazole 2 % shampoo 1 applic topical 3XWK 01/19/22 06/19/22 History cholecalciferol (vitamin D3) 25 25 mcg PO DAILY 03/07/22 06/19/22 History mcg (1,000 unit) tablet (Vitamin D3) mirtazapine 15 mg tablet 7.5 mg PO HS 03/07/22 06/19/22 History Past Med/Surg History Medical History Anemia Anxiety and depression Aortic stenosis Chronic renal disease, stage IV Chronic systolic heart failure Dementia DM II (diabetes mellitus, type II), controlled GERD (gastroesophageal reflux disease) Hyperkalemia Hyperlipidemia LDL goal <70 Hypertension Moderate mitral regurgitation NSTEMI (non-ST elevated myocardial infarction) 2014?--follows with Dr. Charles Sensorineural hearing loss (SNHL) of both ears Surgical History AICD (automatic cardioverter/defibrillator) present 2017--meditronic @ [facility] History of appendectomy History of bilateral cataract extraction History of open reduction and internal fixation (ORIF) procedure ankle fx---hardware in place History of tubal ligation Status post cholecystectomy Family History Mother Family history of diabetes mellitus Brother Family history of diabetes mellitus Sister Family history of diabetes mellitus Other No family history of adverse response to anesthesia Social History Smoking Status: Never smoker Second Hand Exposure: No; Hx Alcohol Use: No Hx Substance Use: No Preferred Language: Nepali Communication Ability: Effective Asparagus Cutter Required: No Beliefs That Will Affect Care: None marital status: / Current Living Situation: Family Current Living Situation Comment: Lives with one daughter above sons garage made into apartment. How many Children do You have: 3 Feels Safe at Home: Yes Assistive Devices: Walker Review of Systems Review of Systems: Constitutional: No fever, sweats or chills Eyes: No diplopia, no worsening or blurred vision ENT: normal hearing, no trouble swallowing Respiratory: No cough, sputum, dyspnea at rest or on exertion Cardiovascular: No chest pain, tightness or palpitations Abdomen: No pain, nausea, vomiting, diarrhea or constipation Musculoskeletal: + Generalized weakness in both legs, no joint pain, calf pain, minimal swelling Neurologic: No weakness, numbness/tingling, or balance problems Psychiatric: No anxiety or depression Skin: No rash or itch Physical Exam Physical Exam: General: awake, alert, no apparent distress Head: Normocephalic, atraumatic, Thinning hair ENT: PERRL, EOMI, no pharyngeal exudate, mucous membranes moist Chest: On room air, O2 sats are 88% with talking, + Crackles throughout, no rales. Cardiac: Regular rate and rhythm, +systolic ejection murmur, no JVD, normal peripheral pulses, good capillary refill Abdominal: NABS x 4 quadrants, soft, nondistended, nontender to palpation, no rebound or guarding Extremities: +trace peripheral edema BLE, no bright red erythema, calfs nontender to palpation Skin: chronic dark red nonblanching discoloration to feet, finer rash on extremities, skin is dry Psych: Anxious mood and affect Neuro: AAO x 3, has difficulty with recall of information and chronological events, strength 3/5 bilateral lower extremities, no gross motor deficits, speech is clear, no peripheral sensory deficits Results & Data Results & Data ([facility]) Vital Signs (Past 12 Hours) Vital Signs Temp Pulse Resp BP Pulse Ox O2 Del Method 06/19/22 14:30 94 H 34 H 95 06/19/22 14:00 91 H 18 96 06/19/22 13:30 91 H 15 96 06/19/22 13:00 90 15 99 06/19/22 12:30 90 17 96 06/19/22 12:30 101/59 L 06/19/22 12:13 94 H 23 06/19/22 12:15 95 H 06/19/22 12:31 91 H 98 Room Air 06/19/22 12:01 36.6 C 97 H 18 109/64 97 Room Air Laboratory Results 06/19/22 14:34 Urine Culture - Pending Urine,Clean Catch 06/19/22 13:00 Aerobic Blood Culture - Pending Blood Anaerobic Blood Culture - Pending 06/19/22 13:03 Aerobic Blood Culture - Pending Blood Anaerobic Blood Culture - Pending 06/19/22 06/19/22 06/19/22 14:34 14:23 13:00 WBC RBC Hgb Hct MCV MCH MCHC RDW Std Deviation RDW Coeff of Nevahe Plt Count MPV Immature Gran % (Auto) Neut % (Auto) Lymph % (Auto) [place] % (Auto) Eos % (Auto) Baso % (Auto) Neut # (Auto) Lymph # (Auto) [place] # (Auto) Eos # (Auto) Baso # (Auto) Immature Gran # (Auto) Sodium Potassium Chloride Carbon Dioxide Anion Gap BUN Creatinine Est Cr Clr Drug Dosing Est GFR ( Amer) Est GFR (Non-Af Amer) BUN/Creatinine Ratio Glucose Lactate 1.1 Calcium Magnesium Total Bilirubin AST ALT Alkaline Phosphatase Troponin I High Sens B-Natriuretic Peptide 2118 H Total Protein Albumin Globulin Albumin/Globulin Ratio TSH Urine Color Yellow Urine Appearance Clear Urine pH 5.5 Ur Specific [place] 1.016 Urine Protein Trace H Urine Glucose (UA) Negative Urine Ketones Negative Urine Blood Trace H Urine Nitrite Negative Urine Bilirubin Negative Urine Urobilinogen Negative Ur Leukocyte Esterase 3+ H Urine WBC (Auto) 10-30 H Urine RBC (Auto) 0-4 U Hyaline Cast (Auto) 0 U Epithel Cells (Auto) 5-10 H Urine Bacteria (Auto) 1+ H SARS-CoV-2 (PCR) Influenza Type A (PCR) Influenza Type B (PCR) RSV (RT-PCR) 06/19/22 06/19/22 06/19/22 12:23 12:23 12:23 WBC RBC Hgb Hct MCV MCH MCHC RDW Std Deviation RDW Coeff of Nevaeh Plt Count MPV Immature Gran % (Auto) Neut % (Auto) Lymph % (Auto) [place] % (Auto) Eos % (Auto) Baso % (Auto) Neut # (Auto) Lymph # (Auto) [place] # (Auto) Eos # (Auto) Baso # (Auto) Immature Gran # (Auto) Sodium 137 Potassium 4.6 Chloride 104 Carbon Dioxide 26 Anion Gap 7 BUN 74 H Creatinine 2.09 H Est Cr Clr Drug Dosing Not Reportable Est GFR ( Amer) 26.5 Est GFR (Non-Af Amer) 22.9 BUN/Creatinine Ratio 35.4 H Glucose 222 H Lactate Calcium 9.2 Magnesium 2.2 Total Bilirubin 0.8 AST 38 ALT 42 Alkaline Phosphatase 93 Troponin I High Sens 19.6 H B-Natriuretic Peptide Total Protein 7.6 Albumin 4.0 Globulin 3.6 Albumin/Globulin Ratio 1.1 TSH 2.685 Urine Color Urine Appearance Urine pH Ur Specific [place] Urine Protein Urine Glucose (UA) Urine Ketones Urine Blood Urine Nitrite Urine Bilirubin Urine Urobilinogen Ur Leukocyte Esterase Urine WBC (Auto) Urine RBC (Auto) U Hyaline Cast (Auto) U Epithel Cells (Auto) Urine Bacteria (Auto) SARS-CoV-2 (PCR) NEGATIVE Influenza Type A (PCR) Negative Influenza Type B (PCR) Negative RSV (RT-PCR) Negative 06/19/22 12:23 WBC 2.47 L RBC 3.15 L Hgb 10.5 L Hct 32.7 L MCV 103.8 H MCH 33.3 MCHC 32.1 RDW Std Deviation 61.8 H RDW Coeff of Nevaeh 16.1 H Plt Count 52 L MPV 11.7 Immature Gran % (Auto) 2.8 Neut % (Auto) 55.1 Lymph % (Auto) 32.4 [place] % (Auto) 8.5 Eos % (Auto) 0.8 Baso % (Auto) 0.4 Neut # (Auto) 1.36 L Lymph # (Auto) 0.80 L [place] # (Auto) 0.21 Eos # (Auto) 0.02 Baso # (Auto) 0.01 Immature Gran # (Auto) 0.07 Sodium Potassium Chloride Carbon Dioxide Anion Gap BUN Creatinine Est Cr Clr Drug Dosing Est GFR ( Amer) Est GFR (Non-Af Amer) BUN/Creatinine Ratio Glucose Lactate Calcium Magnesium Total Bilirubin AST ALT Alkaline Phosphatase Troponin I High Sens B-Natriuretic Peptide Total Protein Albumin Globulin Albumin/Globulin Ratio TSH Urine Color Urine Appearance Urine pH Ur Specific [place] Urine Protein Urine Glucose (UA) Urine Ketones Urine Blood Urine Nitrite Urine Bilirubin Urine Urobilinogen Ur Leukocyte Esterase Urine WBC (Auto) Urine RBC (Auto) U Hyaline Cast (Auto) U Epithel Cells (Auto) Urine Bacteria (Auto) SARS-CoV-2 (PCR) Influenza Type A (PCR) Influenza Type B (PCR) RSV (RT-PCR) Diagnostic Findings Chest X-Ray 06/19/22 00:00 XR chest 1V portable CLINICAL HISTORY: dyspnea TECHNIQUE: Single frontal radiograph of the chest was obtained. Comparison: Comparison is made to chest radiograph 03/07/2022 FINDINGS: Defibrillator is seen. Calcified aortic knob is seen. Faint bibasilar airspace opacities are seen. No evidence of pleural effusion or pneumothorax. IMPRESSION: Faint bibasilar airspace opacities which may represent atelectasis, pneumonia, and/or aspiration. ACT 112: Negative or not required by law. Electronically signed by: Gerber Ramos M.D. 06/19/2022 1:[address] 06/19/22 12:31 CT SCAN OF THE BRAIN WITHOUT IV CONTRAST CLINICAL HISTORY: Generalized weakness. COMPARISON STUDY: CT of the brain dated 12/27/2021. TECHNIQUE: Unenhanced axial CT scan of the brain is performed from the vertex to the skull base. A dose lowering technique was utilized adhering to the principles of ALARA. CT DOSE: 537.48 mGy.cm FINDINGS: Brain parenchyma: There is age-related involutional change noting moderate subcortical and periventricular microangiopathic disease. There is no hemorrhage, mass effect, or evidence of acute territorial ischemia by CT criteria. Espinoza-white matter differentiation is preserved. No extra-axial fluid collection is seen. Ventricles, sulci, cisterns: Prominent secondary to involutional change. Intracranial vasculature: There is atherosclerotic calcification of the cavernous carotid and vertebral arteries. Calvarium: Unremarkable. Sinuses and mastoids: The visualized paranasal sinuses are clear. The mastoid air cells are well pneumatized. Orbits: The bony orbits are grossly intact. There are bilateral ocular lens implants. IMPRESSION: There is no hemorrhage, mass effect, or evidence of acute territorial ischemia by CT criteria. ACT 112: Negative or not required by law. Electronically signed by: Nicolas Wang M.D. 06/19/2022 2:01 PM Code Status & VTE Plan Code Status Full code Supervising Physician Co-Signing Physician Notes Pt is a 72 y/o F with hx of IDDM, HFrEF s/p AICD, CKD III-IV, Pancytopenia, JEREMIE on CPAP, HLD, GERD, Depression, ALBARO admitted for possible acute on CHF Pts Lasix was decreased to 20mg on ,, (was on 40mg ,,) 3 weeks ago. PE: NAD, well developed Lungs: good air entry b/l with b/l lower lobe crackles (L>R) Cardiac: normal S1/S2, no murmur Abd: ND, soft, NT MSk: trace b/l LE pitting edema Psych: AAOx3, normal affect A/P: Acute on HFrEF with CKD III-IV: -pt received 40mg IV Lasix in the ER ---- due to CKD IV will wait until repeat BMP and CXR AM prior to giving another dose -daily weight, strict I/O -will obtain echo: last echo was 2.5 years ago and showed possible moderate aortic stenosis - cardiology consult - will consult nephro as well - pt/ot UTI: -will do ceftriaxone until UCx result Other chronic conditions: plan as above Agree with A/P by Liliam Moore PA-C
[2022-06-19] MEDS ORDERED: GLUCOSE 10 TAB/TUBE PO PRN (17:52)
[2022-06-19] MEDS ORDERED: ONDANSETRON INJ 2 MG/ML 2 ML VIAL IV PRN (17:52)
[2022-06-19] MEDS ORDERED: GLUCOSE 40% GEL 15 GM TUBE PO PRN (17:52)
[2022-06-19] MEDS ORDERED: DEXTROSE 50% 50 ML SYRINGE IV PRN (17:52)
[2022-06-19] MEDS ORDERED: TRIAMCINOLONE ACET 0.1% OINT 454 GM EXT PRN (17:52)
[2022-06-19] MEDS ORDERED: CARBOHYDRATES FOR HYPOGLYCEMIA PO PRN (17:52)
[2022-06-19] MEDS ORDERED: GLUCAGON FOR INJ 1 MG VIAL SQ PRN (17:52)
[2022-06-19] MEDS: INSULIN ASPART PER UNIT CHARGE SC SCH ×2 (18:22→20:37)
[2022-06-19] MEDS: SACCHAROMYCES BOULARDII 250 MG CAP PO SCH (18:40)
[2022-06-19] MEDS: ACETAMINOPHEN 325 MG TAB PO PRN (18:42)
[2022-06-19] MEDS ORDERED: TRIAMCINOLONE ACET 0.1% OINT 15 GM TUBE EXT PRN (18:58)
[2022-06-19] MEDS: FUROSEMIDE 20 MG TAB PO SCH (20:08)
[2022-06-19] MEDS: LANTUS PER UNIT CHARGE SQ SCH (20:38)
[2022-06-19] MEDS: MIRTAZAPINE TAB 15 MG TAB PO SCH (20:40)
[2022-06-19] MEDS: METOPROLOL SUCC 50MG EXT REL TAB PO SCH (20:40)
--- NOTE | 2022-06-19 20:40 | XRay Report ---
SINGLE VIEW CHEST CLINICAL HISTORY: Congestive heart failure FINDINGS: An AP, portable, upright chest radiograph is compared to study dated 06/19/2022 and correlat ed with chest CT dated 01/19/2022. A single-lead cardiac AICD is unchanged in position and partially obscures the right mid chest. The heart is enlarged noting atherosclerotic calcification of the thora cic aorta. There is pulmonary vascular congestion. There are layering pleural effusions with dependen t consolidation. No pneumothorax is seen. The skeletal structures are osteopenic. The bony thorax is grossly intact. IMPRESSION: 1. Cardiomegaly and AICD with evidence of congestive failure. This is similar to today's earlier exam ination. 2. Layering pleural effusions with dependent consolidation. ACT 112: Negative or not required by law. Electronically signed by: Nicolas Wang M.D. 06/19/2022 8:39 PM
[2022-06-19] MEDS: SERTRALINE HCL 100 MG TABLET PO SCH (20:41)
[2022-06-19] MEDS: DICLOFENAC SOD 1% GEL 100 GM TUBE EXT PRN (21:27)
[2022-06-20 07:24] LABS: Hemoglobin 10.9 g/dl (12.0-16.0); Mean Corpuscular Hemoglobin 32.2 pg (25.0-34.0); Mean Corpuscular Hgb Conc 32.1 g/dL (32.0-36.0); Mean Corpuscular Volume 100.6 fL (80.0-100.0); Mean Platelet Volume 11.8 fL (9.4-12.4); Platelet Count 60 K/uL (130-400); RDW Coefficient of Variation 15.9 % (11.5-14.5); RDW Standard Deviation 58.9 fL (36.4-46.3); Red Blood Count 3.38 M/uL (4.20-5.40); White Blood Count 4.28 K/ul (4.8-10.8)
[2022-06-20 07:39] LABS: BUN Creatinine Ratio 33.2 (10-20); Calcium 8.8 mg/dl (8.5-10.1); Creatinine Clr Calc Pharmacy 24.4 ml/min; Est GFR (African American) 25.8 ml/min; Est GFR (Non-African American) 22.3 ml/min; Magnesium 2.1 mg/dl (1.7-2.4); Phosphorus 4.3 mg/dl (2.5-4.9); Potassium 4.3 mmol/L (3.5-5.1)
[2022-06-20] MEDS: INSULIN ASPART PER UNIT CHARGE SC SCH ×4 (07:53→20:43)
--- NOTE | 2022-06-20 08:10 | Cardiology Consultation ---
Date of Consultation June 20, 2022 Assessment & Plan (1) Acute on chronic systolic CHF (congestive heart failure): (2) Ischemic cardiomyopathy: (3) UTI (urinary tract infection): (4) Weakness: (5) CKD (chronic kidney disease): Plan IMPRESSION: Medically complex 72 year old female who initially presented to [facility] ED due to weakness. Found to be hypervolemic after a recent decrease in her outpatient diuretic regimen. Carries a history of ICM with a severely reduced LVEF of 20-24% per last echo dated 03/2020. S/p single-chamber AICD, implanted 09/12/2016 ([employer], model - Visia AF MRI VR [id number]) Also carries a history of pancytopenia, initially diagnosed in 2019.? Myelo dysplastic syndrome- follows with hematology Echo results showing a severely reduced LVEF (known) with moderate vs pseudo aortic stenosis in the setting of low EF. PLAN: Patient mildly hypervolemic on exam, however appears improved compared to presentation. Received 40 mg IV lasix in ED. Given CKD appreciate nephrology input on diuretic dosing. Considerations for increasing Lasix dosing. Reached out to nephrology for guidance. HR and BP well controlled. Continue cardiac medications as ordered. Recommend low sodium diet, daily weights, and strict I&Os. Recommend PT/OT eval due to ongoing weakness- will defer to primary team. ABX per primary team for treatment of UTI- likely contributing to weakness and increased confusion. Case discussed with Dr. Hernandez- will follow. Supervising Physician Co-Signing Physician Notes I have personally seen and examined the patient along with Ramona TOVAR. Patient complaining of weakness and orthopnea. Reports lower extremity edema at home. No chest discomfort or heaviness. Chronic dyspnea on exertion and limited functional capacity unchanged. No palpitations, lightheadedness, dizziness, syncope, or near syncope. The medical record and all available studies have been reviewed. Please refer to the note as detailed above for full PMH, PSH, social hx, family hx, active medication list and allergies. PE: VSS. Gen: NAD, awake and alert. Heart: Regular rhythm, normal S1S2. 1/6 holosystolic murmur heard best at the apex. Lungs: + crackles right base. Ext: No edema. After discussion with Ramona TOVAR, I fully agree with the assessment and plan as documented above. Chest x-ray and physical exam suggests pulmonary edema. Echocardiogram demonstrating severe LV systolic dysfunction, moderate aortic stenosis versus pseudo aortic stenosis, moderate to severe mitral regurgitation, and mild pulmonary hypertension. Recommend up titration of di uretic therapy. Appreciate nephrology input. Continue other cardiovascular medications including metoprolol succinate, aspirin, and rosuvastatin. Patient is not a candidate for DASH inhibitor, angiotensin receptor pati, Entresto, or spironolactone due to renal insufficiency. History of Present Illness Reason for Consultation: Acute on chronic CHF Requesting Physician: Galilea leal Attending Physician: Ambrose Ojeda MD History of Present Illness 72-year-old female who initially presented to [facility] emergency department due to weakness and lower extremity edema. Believes that her dry weight is 131 pounds. On admission weight was 141.9lb. She follows with Dr. Syed for CKD. Last evaluated on 05/31 where patient appeared hypovolemic and Lasix was reduced to 20 mg every Saturday only. On 06/17, 2 days prior to presentation her son increased back to 20 mg daily due to lower extremity edema. Patient was given 40 mg of IV Lasix in th e emergency department. Urinalysis showed potential infection and a single dose of cefepime was given. Tele: SR 80s I&O: -200mL Weight: 64.5kg >> 66 kg Labs: HS trop mildly elevated, but flat- chronic. BNP ~2000. Renal dysfunction scr ~2.0-2.1 Echo: LVEF 20 to 25% with diffuse hypokinesis to akinesis. Moderate aortic valve stenosis is suspected however severe aortic stenosis must be considered in the setting of severely reduced LV systolic function. Trace AI. Moderate to severe MR. Moderate TR. Upon entrance into the room patient resting in bed. Seems to be a poor historian due to underlying dementia. Notes that she lives at home with her son who does her medications for her. Has a good support system. No concerns regarding chest pain, sob, or palpitations. Continues to feel weak- has not been out of bed. Notes improvement in her leg swelling. Primary input output clerk: Dr. Charles Past medical history: -HFrEF -Ischemic cardiomyopathy, initial LVEF 33%cardiac catheterization deferred by patient previously. -LVEF 20-24% per most recent echo 03/2020 -Abnormal nuclear stress 01/26/2016 with moderate-sized and infarct of the anterior and anterior septal myocardium with only mild yesenia-infarct ischemia -S/p single-chamber AICD, implanted 09/12/2016 ([employer], model - Visia AF MRI VR [id number]) -Hypertension -Dyslipidemia -? chart history of aortic stenosis -CKD, follows with nephrology (Norris) -JEREMIE -Diabetes -Depression -Pancytopenia, initially diagnosed in 2019.? Myelodysplastic syndrome- follows with hematology Allergies Allergy/AdvReac Type Severity Reaction Status Date / Time lisinopril AdvReac Intermediate Cough Verified 06/19/22 15:41 Home Medications Medication Instructions Recorded Confirmed Type gabapentin 100 mg capsule 100 mg PO QAM 02/04/19 06/19/22 History aspirin 81 mg tablet,delayed 81 mg PO QAM #30 tabs 02/11/19 06/19/22 Rx release (Ecotrin Low Strength) nitroglycerin 0.4 mg sublingual 0.4 mg sublingual UD PRN chest 02/11/19 06/19/22 Rx tablet (Nitrostat) pain #5 tabs acetaminophen 325 mg tablet 650 mg PO Q4H PRN Fever/pain 03/04/19 06/19/22 History metoprolol succinate 50 mg 50 mg PO BID 03/04/19 06/19/22 History tablet,extended release 24 hr insulin glargine 100 unit/mL (3 15 unit subcut HS 09/08/19 06/19/22 History mL) subcutaneous pen (Basaglar KwikPen U-100 Insulin) sertraline 100 mg tablet 100 mg PO HS 09/08/19 06/19/22 History liraglutide 0.6 mg/0.1 mL (18 mg/3 1.8 mg subcut HS 12/26/21 06/19/22 History mL) subcutaneous pen injector (Victoza 3-Jaime) furosemide 40 mg tablet 20 mg PO 3XWK 12/27/21 06/19/22 History rosuvastatin 20 mg tablet (Crestor) 20 mg PO QAM #30 tabs 01/02/22 06/19/22 Rx ketoconazole 2 % shampoo 1 applic topical 3XWK 01/19/22 06/19/22 History cholecalciferol (vitamin D3) 25 25 mcg PO DAILY 03/07/22 06/19/22 History mcg (1,000 unit) tablet (Vitamin D3) mirtazapine 15 mg tablet 7.5 mg PO HS 03/07/22 06/19/22 History Patient History Medical History (Updated 06/20/22 @ 11:41 by Nancy Shahid MD, PhD) Anxiety and depression Aortic stenosis Chronic renal disease, stage IV Chronic systolic heart failure Cystocele Dementia DM II (diabetes mellitus, type II), controlled GERD (gastroesophageal reflux disease) Hyperlipidemia LDL goal <70 Hypertension Moderate mitral regurgitation NSTEMI (non-ST elevated myocardial infarction) 2014?--follows with Dr. Charles Pancytopenia Sensorineural hearing loss (SNHL) of both ears Surgical History AICD (automatic cardioverter/defibrillator) present 2017--meditronic @ [facility] History of appendectomy History of bilateral cataract extraction History of open reduction and internal fixation (ORIF) procedure ankle fx---hardware in place History of tubal ligation Status post cholecystectomy Family History Mother Family history of diabetes mellitus Brother Family history of diabetes mellitus Sister Family history of diabetes mellitus Other No family history of adverse response to anesthesia Social History Smoking Status: Never smoker Second Hand Exposure: No; Hx Alcohol Use: No Hx Substance Use: No Preferred Language: Uzbek Communication Ability: Effective Pipe Coverer Required: No Beliefs That Will Affect Care: None marital status: / Current Living Situation: Family Current Living Situation Comment: Lives with one daughter above sons garage made into apartment. How many Children do You have: 3 Other Information That Helps Us Care for You: Yes Feels Safe at Home: Yes Safety Concerns: Feels Safe At This Time Assistive Devices: Walker Review of Systems Review of Systems: All systems reviewed & are unremarkable except as noted in HPI & below Physical Exam Constitutional: no acute distress Eyes: PERRL, conjunctivae normal, anicteric sclerae Neck: normal visual inspection and trachea midline Respiratory: normal respiratory effort, lungs clear to auscultation Auscultation: + diminished lung sounds and + rales Cardiovascular: RRR, no murmur, no edema Heart Sounds: normal S1, normal S2 and + murmur (+1/6 systolic murmur) Vessels: no JVD Extremities: no edema Chest (Breasts): Chest: + pacemaker (right chest AICD) Gastrointestinal (Abdomen): normal bowel sounds, soft, nontender, no hepatosplenomegaly Skin: no rashes, warm and dry Psychiatric: Orientation: alert and oriented x 3 (periods of confusion, poor historian.) Results & Data ([facility]) Vital Signs (Past 12 Hours) Vital Signs Temp Pulse Pulse Resp BP Pulse Ox O2 Del Method 06/20/22 07:05 36.6 C 84 19 119/77 98 Room Air 06/20/22 02:46 36.6 C 83 18 112/73 97 Room Air 06/19/22 23:52 88 06/19/22 22:36 36.6 C 88 18 105/70 94 Room Air 06/19/22 21:07 Room Air Laboratory Results Cardiac Enzymes 06/19/22 06/19/22 06/19/22 Range/Units 12:23 14:23 18:21 AST 38 (13-39) U/L Troponin I High Sens 19.6 H 23.5 H (0-14) pg/ml B-Natriuretic Peptide 2118 H (0-100) pg/ml Coagulation 06/19/22 Range/Units 14:23 B-Natriuretic Peptide 2118 H (0-100) pg/ml Lipids 06/20/22 Range/Units 06:55 Triglycerides 75 (0-150) mg/dl Cholesterol 63 (0-200) mg/dl HDL Cholesterol 21 mg/dl Cholesterol/HDL Ratio 3.0 (0-5) CBC 06/19/22 06/20/22 Range/Units 12:23 06:55 WBC 2.47 L 4.28 L (4.8-10.8) K/ul RBC 3.15 L 3.38 L (4.20-5.40) M/uL Hgb 10.5 L 10.9 L (12.0-16.0) g/dl Hct 32.7 L 34.0 L (37.0-47.0) % Plt Count 52 L 60 L (130-400) K/uL Neut # (Auto) 1.36 L (1.40-6.50) K/uL Lymph # (Auto) 0.80 L (1.2-3.4) K/uL [place] # (Auto) 0.21 (0.11-0.59) K/uL Eos # (Auto) 0.02 (0-0.50) K/uL Baso # (Auto) 0.01 (0-0.2) K/uL Comprehensive Metabolic Panel 06/19/22 06/20/22 Range/Units 12:23 06:55 Sodium 137 140 (136-145) mmol/L Potassium 4.6 4.3 (3.5-5.1) mmol/L Chloride 104 108 H (98-107) mmol/L Carbon Dioxide 26 24 (21-32) mmol/L BUN 74 H 71 H (6-23) mg/dl Creatinine 2.09 H 2.14 H (0.6-1.2) mg/dl Glucose 222 H 62 L (70-99(Fasting)) mg/dl Calcium 9.2 8.8 (8.5-10.1) mg/dl AST 38 (13-39) U/L ALT 42 (7-52) U/L Alkaline Phosphatase 93 (34-104) U/L Total Protein 7.6 (6.0-8.3) gm/dl Albumin 4.0 (3.4-5.0) gm/dl Intake and Output 06/19/22 06/20/22 06/20/22 22:59 06:59 14:59 Intake Total 150 / 750 100 / 750 Output Total 300 / 950 650 / 950 Balance -150 / -200 -550 / -200 Intake: Oral 150 / 250 100 / 250 Output: Urine Amount (Catheter) 300 / 950 650 / 950 External 300 / 950 650 / 950 Other: # Unmeasured Voids 1 Weight 64.5 kg 66 kg Weight Measurement Method Built in [facility] Diagnostic Findings Cardiac Enzymes 06/19/22 06/19/22 06/19/22 Range/Units 12:23 14:23 18:21 AST 38 (13-39) U/L Troponin I High Sens 19.6 H 23.5 H (0-14) pg/ml B-Natriuretic Peptide 2118 H (0-100) pg/ml Coagulation 06/19/22 Range/Units 14:23 B-Natriuretic Peptide 2118 H (0-100) pg/ml Lipids 06/20/22 Range/Units 06:55 Triglycerides 75 (0-150) mg/dl Cholesterol 63 (0-200) mg/dl HDL Cholesterol 21 mg/dl Cholesterol/HDL Ratio 3.0 (0-5) CBC 06/19/22 06/20/22 Range/Units 12:23 06:55 WBC 2.47 L 4.28 L (4.8-10.8) K/ul RBC 3.15 L 3.38 L (4.20-5.40) M/uL Hgb 10.5 L 10.9 L (12.0-16.0) g/dl Hct 32.7 L 34.0 L (37.0-47.0) % Plt Count 52 L 60 L (130-400) K/uL Neut # (Auto) 1.36 L (1.40-6.50) K/uL Lymph # (Auto) 0.80 L (1.2-3.4) K/uL [place] # (Auto) 0.21 (0.11-0.59) K/uL Eos # (Auto) 0.02 (0-0.50) K/uL Baso # (Auto) 0.01 (0-0.2) K/uL Comprehensive Metabolic Panel 06/19/22 06/20/22 Range/Units 12:23 06:55 Sodium 137 140 (136-145) mmol/L Potassium 4.6 4.3 (3.5-5.1) mmol/L Chloride 104 108 H (98-107) mmol/L Carbon Dioxide 26 24 (21-32) mmol/L BUN 74 H 71 H (6-23) mg/dl Creatinine 2.09 H 2.14 H (0.6-1.2) mg/dl Glucose 222 H 62 L (70-99(Fasting)) mg/dl Calcium 9.2 8.8 (8.5-10.1) mg/dl AST 38 (13-39) U/L ALT 42 (7-52) U/L Alkaline Phosphatase 93 (34-104) U/L Total Protein 7.6 (6.0-8.3) gm/dl Albumin 4.0 (3.4-5.0) gm/dl Intake and Output 06/19/22 06/20/22 06/20/22 22:59 06:59 14:59 Intake Total 150 / 750 100 / 750 Output Total 300 / 950 650 / 950 Balance -150 / -200 -550 / -200 Intake: Oral 150 / 250 100 / 250 Output: Urine Amount (Catheter) 300 / 950 650 / 950 External 300 / 950 650 / 950 Other: # Unmeasured Voids 1 Weight 64.5 kg 66 kg Weight Measurement Method Built in [facility]
[2022-06-20 08:16] LABS: Estimated Average Glucose 134 mg/dl; Hemoglobin A1C 6.3 % (4.5-5.6)
--- NOTE | 2022-06-20 08:44 | Hospitalist Progress Note ---
Date of Service June 20, 2022 Assessment & Plan (1) Acute on chronic systolic CHF (congestive heart failure): (2) Hypertension: (3) Ischemic cardiomyopathy: (4) AICD (automatic cardioverter/defibrillator) present: (5) Aortic stenosis: Plan: -Last echo was completed in March 2020, showing an LVEF of 20 to 24%, thinning of the septum, left ventricular cavity is mildly enlarged, moderate aortic stenosis is suspected, mild MR is present -Repeated Echo 06/19/2022 LV is severely dilated. LV systolic function is severely reduced. EF 20 to 25%. Diffuse hypokinesis to akinesis. The septum is thinned and akinetic. Aortic valve leaflet opening is moderately reduced. Moderate aortic valve stenosis is suspected, however, pseudo aortic valve stenosis must be considered in the setting of severely reduced LVEF. Trace aortic regurg. There is moderate to severe mitral regurg. There is moderate tricuspid regurg. Estimated systolic pulmonary pressure is 39 mmHg. -Initial troponin is 19 -> 23 -BNP 2117 -CXR appears fluid overloaded, trace pitting edema in bilateral lower legs, + crackles on lung exam. -recheck CXR 1. Cardiomegaly and AICD with evidence of congestive failure. This is similar to today's earlier examination. 2. Layering pleural effusions with dependent consolidation. -Strict I/Os, daily weights, fluid restriction of 1500ml -Initial Lasix 40 mg IV administered in the ER -at home - p.o. furosemide which was recently reduced in half for 1 week timeframe and then resumed 40 mg x 1 dose 2 days ago. Typically uses lasix 3x per week. Previoulsy was on this 5x per week several months ago. -Cardiology consulted with history of cardioverter/defibrillator and chf exacerbation -Nephrology consulted as they have been managing diuretic in the outpatient setting - currently pt on IV lasix 20 mg BID (6) Pancytopenia: Plan: -Overall persistent pancytopenia, following with Dr. Caruso, scheduled to see him as outpatient on 07/13/2022 - No spontaneous bleeding - No leukocytosis to suspect infection currently, afebrile. - Rash over lower legs from MDS? (7) DM II (diabetes mellitus, type II), controlled: Plan: -Last A1c was 7.5 in December 2021, repeat -ISS with Accu-Cheks -Home Lantus 15 units at bedtime, reduce in half (8) UTI (urinary tract infection): Plan: - U cultx - gram negative bacili - given dose of cefepime in the ER. Will continue with ceftriaxone - added probiotic with hx of diarrhea. Pt denies any urinary symptoms. - Memory issues likely exacerbated by acute infection, son provides hx of possible early onset dementia - monitor (9) CKD (chronic kidney disease): Plan: - Cr. 2.09/BUN 74, appears to be near baseline - Consult nephrology, follows with Dr. Syed as an outpatient DVT ppx - scds, no chemical ppx in the setting of thrombocytopenia CODE: Full code Dispo: From home, likely to remain in the hospital x 1-2 days Admission and Anticipated Discharge Date Admission Date: June 19, 2022 Subjective Pt seen in follow up of CHF exacerbation, uti cardiology and nephrology consulted Pt on IV lasix abx for uti Currently laying in bed, in no acute distress No chest pain palpitations or shortness of breath Reports feeling very weak Poor historian Review of Systems Review of Systems: All systems reviewed & are unremarkable except as noted in Subjective Physical Exam Physical Exam: General: chronically ill appearing F, awake, alert, in NAD, on RA Head: Normocephalic, atraumatic, Thinning hair ENT: PERRL, EOMI, mucous membranes moist, poor dentition Chest: + basilar Crackles, no wheezing Cardiac: Regular rate and rhythm, +systolic ejection murmur Abdominal: NABS x 4 quadrants, soft, nondistended, nontender to palpation, no rebound or guarding Extremities: +trace peripheral edema BLE, moves extremities, scds applied Skin: skin is dry, warm Neuro: AAO x 3, has difficulty with recall of information and chronological events, speech is fluent, no peripheral sensory deficits, moves extremities Results & Data Results & Data ([facility]) Vital Signs (Past 12 Hours) Vital Signs Temp Pulse Pulse Resp BP Pulse Ox O2 Del Method 06/20/22 07:05 36.6 C 84 19 119/77 98 Room Air 06/20/22 02:46 36.6 C 83 18 112/73 97 Room Air 06/19/22 23:52 88 06/19/22 22:36 36.6 C 88 18 105/70 94 Room Air 06/19/22 21:07 Room Air Laboratory Results 0306/20/22 06/20/22 Range/Units 07:04 06:55 06:55 WBC (4.8-10.8) K/ul RBC (4.20-5.40) M/uL Hgb (12.0-16.0) g/dl Hct (37.0-47.0) % MCV (80.0-100.0) fL MCH (25.0-34.0) pg MCHC (32.0-36.0) g/dL RDW Std Deviation (36.4-46.3) fL RDW Coeff of Nevaeh (11.5-14.5) % Plt Count (130-400) K/uL MPV (9.4-12.4) fL Immature Gran % (Auto) % Neut % (Auto) % Lymph % (Auto) % Porter % (Auto) % Eos % (Auto) % Baso % (Auto) % Neut # (Auto) (1.40-6.50) K/uL Lymph # (Auto) (1.2-3.4) K/uL Porter # (Auto) (0.11-0.59) K/uL Eos # (Auto) (0-0.50) K/uL Baso # (Auto) (0-0.2) K/uL Immature Gran # (Auto) (0.01-0.20) K/uL Sodium 140 (136-145) mmol/L Potassium 4.3 (3.5-5.1) mmol/L Chloride 108 H (98-107) mmol/L Carbon Dioxide 24 (21-32) mmol/L Anion Gap 8 (3-11) BUN 71 H (6-23) mg/dl Creatinine 2.14 H (0.6-1.2) mg/dl Est Cr Clr Drug Dosing 24.4 Est GFR ( Amer) 25.8 ml/min Est GFR (Non-Af Amer) 22.3 ml/min BUN/Creatinine Ratio 33.2 H (10-20) Glucose 62 L (70-99(Fasting)) mg/dl POC Glucose 77 (70-99) mg/dl Estimat Average Glucose 134 mg/dl Hemoglobin A1c 6.3 H (4.5-5.6) % Lactate (0.4-2.0) mmol/L Calcium 8.8 (8.5-10.1) mg/dl Phosphorus 4.3 (2.5-4.9) mg/dl Magnesium 2.1 (1.7-2.4) mg/dl Total Bilirubin (0.2-1.0) mg/dl AST (13-39) U/L ALT (7-52) U/L Alkaline Phosphatase (34-104) U/L Troponin I High Sens (0-14) pg/ml B-Natriuretic Peptide (0-100) pg/ml Total Protein (6.0-8.3) gm/dl Albumin (3.4-5.0) gm/dl Globulin (2.5-4.0) gm/dl Albumin/Globulin Ratio (0.9-2) Triglycerides 75 (0-150) mg/dl Cholesterol 63 (0-200) mg/dl LDL Cholesterol, Calc 27 mg/dl VLDL Cholesterol, Calc 15 (0-30) mg/dl HDL Cholesterol 21 mg/dl Cholesterol/HDL Ratio 3.0 (0-5) TSH (0.300-4.500) uIu/ml Urine Color Urine Appearance (Clear) Urine pH (4.5-7.5) Ur Specific [place] (1.000-1.030) Urine Protein (Negative) Urine Glucose (UA) (Negative) Urine Ketones (Negative) Urine Blood (Negative) Urine Nitrite (Negative) Urine Bilirubin (Negative) Urine Urobilinogen (Negative) Ur Leukocyte Esterase (Negative) Urine WBC (Auto) (0-5) /hpf Urine RBC (Auto) (0-4) /hpf U Hyaline Cast (Auto) (0-5) /lpf U Epithel Cells (Auto) (0-5) /lpf Urine Bacteria (Auto) (Negative) SARS-CoV-2 (PCR) (Negative) Influenza Type A (PCR) (Neg) Influenza Type B (PCR) (Neg) RSV (RT-PCR) (Neg) 06/20/22 06/19/22 06/19/22 Range/Units 06:55 19:58 18:21 WBC 4.28 L (4.8-10.8) K/ul RBC 3.38 L (4.20-5.40) M/uL Hgb 10.9 L (12.0-16.0) g/dl Hct 34.0 L (37.0-47.0) % MCV 100.6 H (80.0-100.0) fL MCH 32.2 (25.0-34.0) pg MCHC 32.1 (32.0-36.0) g/dL RDW Std Deviation 58.9 H (36.4-46.3) fL RDW Coeff of Nevaeh 15.9 H (11.5-14.5) % Plt Count 60 L (130-400) K/uL MPV 11.8 (9.4-12.4) fL Immature Gran % (Auto) % Neut % (Auto) % Lymph % (Auto) % Porter % (Auto) % Eos % (Auto) % Baso % (Auto) % Neut # (Auto) (1.40-6.50) K/uL Lymph # (Auto) (1.2-3.4) K/uL Porter # (Auto) (0.11-0.59) K/uL Eos # (Auto) (0-0.50) K/uL Baso # (Auto) (0-0.2) K/uL Immature Gran # (Auto) (0.01-0.20) K/uL Sodium (136-145) mmol/L Potassium (3.5-5.1) mmol/L Chloride (98-107) mmol/L Carbon Dioxide (21-32) mmol/L Anion Gap (3-11) BUN (6-23) mg/dl Creatinine (0.6-1.2) mg/dl Est Cr Clr Drug Dosing Est GFR ( Amer) ml/min Est GFR (Non-Af Amer) ml/min BUN/Creatinine Ratio (10-20) Glucose (70-99(Fasting)) mg/dl POC Glucose 184 H (70-99) mg/dl Estimat Average Glucose mg/dl Hemoglobin A1c (4.5-5.6) % Lactate (0.4-2.0) mmol/L Calcium (8.5-10.1) mg/dl Phosphorus (2.5-4.9) mg/dl Magnesium (1.7-2.4) mg/dl Total Bilirubin (0.2-1.0) mg/dl AST (13-39) U/L ALT (7-52) U/L Alkaline Phosphatase (34-104) U/L Troponin I High Sens 23.5 H (0-14) pg/ml B-Natriuretic Peptide (0-100) pg/ml Total Protein (6.0-8.3) gm/dl Albumin (3.4-5.0) gm/dl Globulin (2.5-4.0) gm/dl Albumin/Globulin Ratio (0.9-2) Triglycerides (0-150) mg/dl Cholesterol (0-200) mg/dl LDL Cholesterol, Calc mg/dl VLDL Cholesterol, Calc (0-30) mg/dl HDL Cholesterol mg/dl Cholesterol/HDL Ratio (0-5) TSH (0.300-4.500) uIu/ml Urine Color Urine Appearance (Clear) Urine pH (4.5-7.5) Ur Specific [place] (1.000-1.030) Urine Protein (Negative) Urine Glucose (UA) (Negative) Urine Ketones (Negative) Urine Blood (Negative) Urine Nitrite (Negative) Urine Bilirubin (Negative) Urine Urobilinogen (Negative) Ur Leukocyte Esterase (Negative) Urine WBC (Auto) (0-5) /hpf Urine RBC (Auto) (0-4) /hpf U Hyaline Cast (Auto) (0-5) /lpf U Epithel Cells (Auto) (0-5) /lpf Urine Bacteria (Auto) (Negative) SARS-CoV-2 (PCR) (Negative) Influenza Type A (PCR) (Neg) Influenza Type B (PCR) (Neg) RSV (RT-PCR) (Neg) 06/19/22 06/19/22 06/19/22 Range/Units 17:56 14:34 14:23 WBC (4.8-10.8) K/ul RBC (4.20-5.40) M/uL Hgb (12.0-16.0) g/dl Hct (37.0-47.0) % MCV (80.0-100.0) fL MCH (25.0-34.0) pg MCHC (32.0-36.0) g/dL RDW Std Deviation (36.4-46.3) fL RDW Coeff of Nevaeh (11.5-14.5) % Plt Count (130-400) K/uL MPV (9.4-12.4) fL Immature Gran % (Auto) % Neut % (Auto) % Lymph % (Auto) % Porter % (Auto) % Eos % (Auto) % Baso % (Auto) % Neut # (Auto) (1.40-6.50) K/uL Lymph # (Auto) (1.2-3.4) K/uL Porter # (Auto) (0.11-0.59) K/uL Eos # (Auto) (0-0.50) K/uL Baso # (Auto) (0-0.2) K/uL Immature Gran # (Auto) (0.01-0.20) K/uL Sodium (136-145) mmol/L Potassium (3.5-5.1) mmol/L Chloride (98-107) mmol/L Carbon Dioxide (21-32) mmol/L Anion Gap (3-11) BUN (6-23) mg/dl Creatinine (0.6-1.2) mg/dl Est Cr Clr Drug Dosing Est GFR ( Amer) ml/min Est GFR (Non-Af Amer) ml/min BUN/Creatinine Ratio (10-20) Glucose (70-99(Fasting)) mg/dl POC Glucose 128 H (70-99) mg/dl Estimat Average Glucose mg/dl Hemoglobin A1c (4.5-5.6) % Lactate (0.4-2.0) mmol/L Calcium (8.5-10.1) mg/dl Phosphorus (2.5-4.9) mg/dl Magnesium (1.7-2.4) mg/dl Total Bilirubin (0.2-1.0) mg/dl AST (13-39) U/L ALT (7-52) U/L Alkaline Phosphatase (34-104) U/L Troponin I High Sens (0-14) pg/ml B-Natriuretic Peptide 2118 H (0-100) pg/ml Total Protein (6.0-8.3) gm/dl Albumin (3.4-5.0) gm/dl Globulin (2.5-4.0) gm/dl Albumin/Globulin Ratio (0.9-2) Triglycerides (0-150) mg/dl Cholesterol (0-200) mg/dl LDL Cholesterol, Calc mg/dl VLDL Cholesterol, Calc (0-30) mg/dl HDL Cholesterol mg/dl Cholesterol/HDL Ratio (0-5) TSH (0.300-4.500) uIu/ml Urine Color Yellow Urine Appearance Clear (Clear) Urine pH 5.5 (4.5-7.5) Ur Specific [place] 1.016 (1.000-1.030) Urine Protein Trace H (Negative) Urine Glucose (UA) Negative (Negative) Urine Ketones Negative (Negative) Urine Blood Trace H (Negative) Urine Nitrite Negative (Negative) Urine Bilirubin Negative (Negative) Urine Urobilinogen Negative (Negative) Ur Leukocyte Esterase 3+ H (Negative) Urine WBC (Auto) 10-30 H (0-5) /hpf Urine RBC (Auto) 0-4 (0-4) /hpf U Hyaline Cast (Auto) 0 (0-5) /lpf U Epithel Cells (Auto) 5-10 H (0-5) /lpf Urine Bacteria (Auto) 1+ H (Negative) SARS-CoV-2 (PCR) (Negative) Influenza Type A (PCR) (Neg) Influenza Type B (PCR) (Neg) RSV (RT-PCR) (Neg) 06/19/22 06/19/22 06/19/22 Range/Units 13:00 12:23 12:23 WBC (4.8-10.8) K/ul RBC (4.20-5.40) M/uL Hgb (12.0-16.0) g/dl Hct (37.0-47.0) % MCV (80.0-100.0) fL MCH (25.0-34.0) pg MCHC (32.0-36.0) g/dL RDW Std Deviation (36.4-46.3) fL RDW Coeff of Nevaeh (11.5-14.5) % Plt Count (130-400) K/uL MPV (9.4-12.4) fL Immature Gran % (Auto) % Neut % (Auto) % Lymph % (Auto) % [place] % (Auto) % Eos % (Auto) % Baso % (Auto) % Neut # (Auto) (1.40-6.50) K/uL Lymph # (Auto) (1.2-3.4) K/uL [place] # (Auto) (0.11-0.59) K/uL Eos # (Auto) (0-0.50) K/uL Baso # (Auto) (0-0.2) K/uL Immature Gran # (Auto) (0.01-0.20) K/uL Sodium (136-145) mmol/L Potassium (3.5-5.1) mmol/L Chloride (98-107) mmol/L Carbon Dioxide (21-32) mmol/L Anion Gap (3-11) BUN (6-23) mg/dl Creatinine (0.6-1.2) mg/dl Est Cr Clr Drug Dosing Est GFR ( Amer) ml/min Est GFR (Non-Af Amer) ml/min BUN/Creatinine Ratio (10-20) Glucose (70-99(Fasting)) mg/dl POC Glucose (70-99) mg/dl Estimat Average Glucose mg/dl Hemoglobin A1c (4.5-5.6) % Lactate 1.1 (0.4-2.0) mmol/L Calcium (8.5-10.1) mg/dl Phosphorus (2.5-4.9) mg/dl Magnesium (1.7-2.4) mg/dl Total Bilirubin (0.2-1.0) mg/dl AST (13-39) U/L ALT (7-52) U/L Alkaline Phosphatase (34-104) U/L Troponin I High Sens (0-14) pg/ml B-Natriuretic Peptide (0-100) pg/ml Total Protein (6.0-8.3) gm/dl Albumin (3.4-5.0) gm/dl Globulin (2.5-4.0) gm/dl Albumin/Globulin Ratio (0.9-2) Triglycerides (0-150) mg/dl Cholesterol (0-200) mg/dl LDL Cholesterol, Calc mg/dl VLDL Cholesterol, Calc (0-30) mg/dl HDL Cholesterol mg/dl Cholesterol/HDL Ratio (0-5) TSH 2.685 (0.300-4.500) uIu/ml Urine Color Urine Appearance (Clear) Urine pH (4.5-7.5) Ur Specific [place] (1.000-1.030) Urine Protein (Negative) Urine Glucose (UA) (Negative) Urine Ketones (Negative) Urine Blood (Negative) Urine Nitrite (Negative) Urine Bilirubin (Negative) Urine Urobilinogen (Negative) Ur Leukocyte Esterase (Negative) Urine WBC (Auto) (0-5) /hpf Urine RBC (Auto) (0-4) /hpf U Hyaline Cast (Auto) (0-5) /lpf U Epithel Cells (Auto) (0-5) /lpf Urine Bacteria (Auto) (Negative) SARS-CoV-2 (PCR) NEGATIVE (Negative) Influenza Type A (PCR) Negative (Neg) Influenza Type B (PCR) Negative (Neg) RSV (RT-PCR) Negative (Neg) 06/19/22 06/19/22 Range/Units 12:23 12:23 WBC 2.47 L (4.8-10.8) K/ul RBC 3.15 L (4.20-5.40) M/uL Hgb 10.5 L (12.0-16.0) g/dl Hct 32.7 L (37.0-47.0) % MCV 103.8 H (80.0-100.0) fL MCH 33.3 (25.0-34.0) pg MCHC 32.1 (32.0-36.0) g/dL RDW Std Deviation 61.8 H (36.4-46.3) fL RDW Coeff of Nevaeh 16.1 H (11.5-14.5) % Plt Count 52 L (130-400) K/uL MPV 11.7 (9.4-12.4) fL Immature Gran % (Auto) 2.8 % Neut % (Auto) 55.1 % Lymph % (Auto) 32.4 % Porter % (Auto) 8.5 % Eos % (Auto) 0.8 % Baso % (Auto) 0.4 % Neut # (Auto) 1.36 L (1.40-6.50) K/uL Lymph # (Auto) 0.80 L (1.2-3.4) K/uL Porter # (Auto) 0.21 (0.11-0.59) K/uL Eos # (Auto) 0.02 (0-0.50) K/uL Baso # (Auto) 0.01 (0-0.2) K/uL Immature Gran # (Auto) 0.07 (0.01-0.20) K/uL Sodium 137 (136-145) mmol/L Potassium 4.6 (3.5-5.1) mmol/L Chloride 104 (98-107) mmol/L Carbon Dioxide 26 (21-32) mmol/L Anion Gap 7 (3-11) BUN 74 H (6-23) mg/dl Creatinine 2.09 H (0.6-1.2) mg/dl Est Cr Clr Drug Dosing Not Reportable Est GFR ( Amer) 26.5 ml/min Est GFR (Non-Af Amer) 22.9 ml/min BUN/Creatinine Ratio 35.4 H (10-20) Glucose 222 H (70-99(Fasting)) mg/dl POC Glucose (70-99) mg/dl Estimat Average Glucose mg/dl Hemoglobin A1c (4.5-5.6) % Lactate (0.4-2.0) mmol/L Calcium 9.2 (8.5-10.1) mg/dl Phosphorus (2.5-4.9) mg/dl Magnesium 2.2 (1.7-2.4) mg/dl Total Bilirubin 0.8 (0.2-1.0) mg/dl AST 38 (13-39) U/L ALT 42 (7-52) U/L Alkaline Phosphatase 93 (34-104) U/L Troponin I High Sens 19.6 H (0-14) pg/ml B-Natriuretic Peptide (0-100) pg/ml Total Protein 7.6 (6.0-8.3) gm/dl Albumin 4.0 (3.4-5.0) gm/dl Globulin 3.6 (2.5-4.0) gm/dl Albumin/Globulin Ratio 1.1 (0.9-2) Triglycerides (0-150) mg/dl Cholesterol (0-200) mg/dl LDL Cholesterol, Calc mg/dl VLDL Cholesterol, Calc (0-30) mg/dl HDL Cholesterol mg/dl Cholesterol/HDL Ratio (0-5) TSH (0.300-4.500) uIu/ml Urine Color Urine Appearance (Clear) Urine pH (4.5-7.5) Ur Specific [place] (1.000-1.030) Urine Protein (Negative) Urine Glucose (UA) (Negative) Urine Ketones (Negative) Urine Blood (Negative) Urine Nitrite (Negative) Urine Bilirubin (Negative) Urine Urobilinogen (Negative) Ur Leukocyte Esterase (Negative) Urine WBC (Auto) (0-5) /hpf Urine RBC (Auto) (0-4) /hpf U Hyaline Cast (Auto) (0-5) /lpf U Epithel Cells (Auto) (0-5) /lpf Urine Bacteria (Auto) (Negative) SARS-CoV-2 (PCR) (Negative) Influenza Type A (PCR) (Neg) Influenza Type B (PCR) (Neg) RSV (RT-PCR) (Neg) Medications Administered Current Inpatient Medications Acetaminophen (Acetaminophen 325 Mg Tab) 650 mg PO Q4H PRN PRN Reason: Moderate Pain (Scale 4, 5, 6) Stop: 07/19/22 17:51 Last Admin: 06/19/22 18:42 Dose: 650 mg Aspirin (Aspirin 81 Mg Ectab) [address] [facility] Stop: 07/20/22 08:59 Dextrose (Dextrose 50% 50 Ml Syringe) 25 - 50 ml IV UD PRN; Protocol PRN Reason: Hypoglycemia Protocol Stop: 07/19/22 17:51 Diclofenac Sodium (Diclofenac Sod 1% Gel 100 Gm Tube) 2 gm EXT QID PRN; Protocol PRN Reason: L handpain Stop: 07/19/22 20:51 Last Admin: 06/19/22 21:27 Dose: 2 gm Furosemide (Furosemide 20 Mg Tab) 20 mg PO [id number] [facility] Stop: 07/19/22 17:51 Last Admin: 06/19/22 20:08 Dose: 20 mg Gabapentin (Gabapentin 100 Mg Cap) [address] [facility] Stop: 07/20/22 08:59 Glucagon (Glucagon For Inj 1 Mg Vial) 1 mg SQ UD PRN; Protocol PRN Reason: Hypoglycemia Protocol Stop: 07/19/22 17:51 Glucose (Glucose 10 Tab/Tube) 4 - 8 tab PO UD PRN; Protocol PRN Reason: Hypoglycemia Treatment Stop: 07/19/22 17:51 Glucose (Glucose 40% Gel 15 Gm Tube) 15 - 30 gm PO UD PRN; Protocol PRN Reason: Hypoglycemia Protocol Stop: 07/19/22 17:51 Ceftriaxone Sodium 1,000 mg/ (Dextrose) 50 mls @ 100 mls/hr IV Q24H [facility]; Protocol Stop: 06/25/22 08:59 Insulin Aspart (Insulin Aspart Per Unit) 0 units SC ACHS [facility] Stop: 07/19/22 17:51 Last Admin: 06/20/22 07:53 Dose: Not Given Insulin Glargine (Lantus Per Unit Charge) 15 units SQ HS TED Stop: 07/19/22 20:59 Last Admin: 06/19/22 20:38 Dose: 15 units Metoprolol Succinate (Metoprolol Succ 50mg Ext Rel Tab) 50 mg PO BID TED Stop: 07/19/22 20:59 Last Admin: 06/19/22 20:40 Dose: 50 mg Mirtazapine (Mirtazapine Tab 15 Mg Tab) 7.5 mg PO HS [facility] Stop: 07/19/22 20:59 Last Admin: 06/19/22 20:40 Dose: 7.5 mg Miscellaneous (Carbohydrates For Hypoglycemia ) 15 - 30 gm PO UD PRN PRN Reason: Hypoglycemia Protocol Stop: 07/19/22 17:51 Ondansetron HCl (Ondansetron Inj 2 Mg/Ml 2 Ml Vial) 4 mg IV Q4H PRN PRN Reason: Nausea And Vomiting Stop: 07/19/22 17:51 Rosuvastatin Calcium (Rosuvastatin Calcium 20 Mg Tab) 20 mg PO QAM [facility] Stop: 07/20/22 08:59 Saccharomyces Boulardii (Saccharomyces Boulardii 250 Mg Cap) 250 mg PO DAILY TED Stop: 07/19/22 17:51 Last Admin: 06/19/22 18:40 Dose: 250 mg Sertraline HCl (Sertraline Hcl 100 Mg Tablet) 100 mg PO HS [facility] Stop: 07/19/22 20:59 Last Admin: 06/19/22 20:41 Dose: 100 mg Triamcinolone Acetonide (Triamcinolone Acet 0.1% Oint 15 Gm Tube) 1 appln EXT BID PRN PRN Reason: Itching Stop: 07/19/22 18:57 Vitamin D (Cholecalciferol 1,000 Units 25 Mcg Tab) 1,000 units PO DAILY TED Stop: 07/20/22 08:59
[2022-06-20] MEDS: METOPROLOL SUCC 50MG EXT REL TAB PO SCH ×2 (09:43→19:42)
[2022-06-20] MEDS: ASPIRIN 81 MG ECTAB PO SCH (09:44)
[2022-06-20] MEDS: FUROSEMIDE 20 MG TAB PO SCH (09:44)
[2022-06-20] MEDS: GABAPENTIN 100 MG CAP PO SCH (09:44)
[2022-06-20] MEDS: SACCHAROMYCES BOULARDII 250 MG CAP PO SCH (09:44)
[2022-06-20] MEDS: ROSUVASTATIN CALCIUM 20 MG TAB PO SCH (09:44)
[2022-06-20] MEDS: CHOLECALCIFEROL 1,000 UNITS 25 MCG TAB PO SCH (09:44)
[2022-06-20] MEDS: cefTRIAXone SODIUM 1,000 MG in DEXTROSE 5% AD-VAN 50 ML IV SCH (09:45)
--- NOTE | 2022-06-20 11:17 | Nephrology Consultation ---
Date of Consultation June 20, 2022 Assessment & Plan (1) Acute on chronic systolic CHF (congestive heart failure): had 40 mg IV in ER x 1. >start 20 mg IV lasix IV bid for now > no need for bid17 dosing w/ darby; likely to need lower lasix dosing fairly soon >low threshold for CT given weakness/fatigue/ exam not in alignment with sx -daily bmp -agree w/ 1.5 L FR -daily weights, standing weight much preferred if at all possible (2) Chronic renal disease, stage IV: basliene creatinine 2021 had been high ones > progressive renal dysfunction in 2022, did not respond to lower diuretic dosing unfortunately. baseline in 2022 more 1.9 creat; not currently meeting CORBY criteria but she may do so ultimately (3) UTI (urinary tract infection): -f/u pending cultures; cont cefepime chronic cystocele w/ frequent/recurrent UTI/+ urine cxs, s/p recent course of keflex late May/early June (4) Cystocele: see above re UTI History of Present Illness Reason for Consultation: heart failure exacerbation Requesting Physician: Dr Hand Attending Physician: Ambrose Ojeda MD History of Present Illness 72 y/o F whom I'm asked to see for help w/ volume status/HF exacerbation was admitted yesterday for same. 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 Also had course of empiric keflex late last month/early this month for UTI > pt and family advised to collect specimen but this was not done. Her baseline creatinine has been running in the high ones, 1.6-1.8, more recently in 2022 1.9. I saw her in late May and noted worse renal function/concern for hypovolemia on exam and lowered her lasix from 40 mg MWF to 20 mg MWF w/ diuretic titration protocol/close in follow up. She did have some pedal edema starting in early June and was advised to use diuretic titration protocol; however DTP did not sufficiently control pedal edema and she developed dsypnea earlier this week, prompting ER visit. No mention of weights in f/u calls in EPIC. Presenting creatinine 2.1, unchanged today. Has CXR remarkable for layering pleural effusions/ TTE w/ diffuse hypokinesis, unchanged eF, moderate-severe MR. she had 40 mg IV lasix x 1 in ER then resumed on po 20 mg MWF; started on cefepime for concern for UTI; blood cxs NGTD. I/O are inaccurate so far since grace/ melody has wet bed x 2 this am. she tells me she ate full midday meal. endorses thirst. tells me she feels weak and tired; not so worried about dsypnea or edema today. denies voiding sx prior to admission (note though she is not a reliable historian) Allergies Allergy/AdvReac Type Severity Reaction Status Date / Time lisinopril AdvReac Intermediate Cough Verified 06/19/22 15:41 Home Medications Medication Instructions Recorded Confirmed Type gabapentin 100 mg capsule 100 mg PO QAM 02/04/19 06/19/22 History aspirin 81 mg tablet,delayed 81 mg PO QAM #30 tabs 02/11/19 06/19/22 Rx release (Ecotrin Low Strength) nitroglycerin 0.4 mg sublingual 0.4 mg sublingual UD PRN chest 02/11/19 06/19/22 Rx tablet (Nitrostat) pain #5 tabs acetaminophen 325 mg tablet 650 mg PO Q4H PRN Fever/pain 03/04/19 06/19/22 History metoprolol succinate 50 mg 50 mg PO BID 03/04/19 06/19/22 History tablet,extended release 24 hr insulin glargine 100 unit/mL (3 15 unit subcut HS 09/08/19 06/19/22 History mL) subcutaneous pen (Basaglar KwikPen U-100 Insulin) sertraline 100 mg tablet 100 mg PO HS 09/08/19 06/19/22 History liraglutide 0.6 mg/0.1 mL (18 mg/3 1.8 mg subcut HS 12/26/21 06/19/22 History mL) subcutaneous pen injector (Victoza 3-Jaime) furosemide 40 mg tablet 20 mg PO 3XWK 12/27/21 06/19/22 History rosuvastatin 20 mg tablet (Crestor) 20 mg PO QAM #30 tabs 01/02/22 06/19/22 Rx ketoconazole 2 % shampoo 1 applic topical 3XWK 01/19/22 06/19/22 History cholecalciferol (vitamin D3) 25 25 mcg PO DAILY 03/07/22 06/19/22 History mcg (1,000 unit) tablet (Vitamin D3) mirtazapine 15 mg tablet 7.5 mg PO HS 03/07/22 06/19/22 History Patient History Medical History (Updated 06/20/22 @ 11:41 by Nancy Shahid MD, PhD) Anxiety and depression Aortic stenosis Chronic renal disease, stage IV Chronic systolic heart failure Cystocele Dementia DM II (diabetes mellitus, type II), controlled GERD (gastroesophageal reflux disease) Hyperlipidemia LDL goal <70 Hypertension Moderate mitral regurgitation NSTEMI (non-ST elevated myocardial infarction) 2014?--follows with Dr. Charles Pancytopenia Sensorineural hearing loss (SNHL) of both ears Surgical History AICD (automatic cardioverter/defibrillator) present 2017--meditronic @ [facility] History of appendectomy History of bilateral cataract extraction History of open reduction and internal fixation (ORIF) procedure ankle fx---hardware in place History of tubal ligation Status post cholecystectomy Family History Mother Family history of diabetes mellitus Brother Family history of diabetes mellitus Sister Family history of diabetes mellitus Other No family history of adverse response to anesthesia Social History Smoking Status: Never smoker Second Hand Exposure: No; Hx Alcohol Use: No Hx Substance Use: No Preferred Language: New Zealander Communication Ability: Effective 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 How many Children do You have: 3 Other Information That Helps Us Care for You: Yes Feels Safe at Home: Yes Safety Concerns: Feels Safe At This Time Assistive Devices: Walker Review of Systems Review of Systems: All systems reviewed & are unremarkable except as noted in HPI & below Physical Exam Constitutional: well developed, well nourished, + frail appearing and cooperative; no acute distress Eyes: EOM intact bilaterally ENMT: Ears: no external ear abnormality Nose: no external nose abnormality Mouth: + dry oral mucous membranes Neck: no nuchal rigidity Respiratory: normal respiratory effort Auscultation: + diminished lung sounds Cardiovascular: Rate/Rhythm: regular rate and regular rhythm Vessels: no JVD Extremities: no edema Gastrointestinal (Abdomen): Inspection/Auscultation: normal bowel sounds Percussion/Palpation: abdomen soft; abdomen nontender Musculoskeletal: Extremities: strength 5/5 throughout and + abnormal strength (needs assist to sit forward for lung exam) Skin: no rashes, warm and dry Neurologic: ha, fluent speech, no tremor. generalized weakness Psychiatric: Orientation: oriented to person and oriented to place Eye Contact: good eye contact Speech: normal rate/rhythm/volume of speech Thought Process: + perseveration Insight: + limited insight Judgment: + limited judgement Results & Data Vital Signs (Past 12 Hours) Vital Signs Temp Pulse Pulse Resp BP Pulse Ox O2 Del Method 06/20/22 10:42 36.6 C 66 18 101/68 97 Room Air 06/20/22 10:16 Room Air 06/20/22 07:05 36.6 C 84 19 119/77 98 Room Air 06/20/22 02:46 36.6 C 83 18 112/73 97 Room Air 06/19/22 23:52 88 Laboratory Results 06/20/22 06:55 06/20/22 06:55 Diagnostic Findings cxr (second one) 1. Cardiomegaly and AICD with evidence of congestive failure. This is similar to today's earlier examination. 2. Layering pleural effusions with dependent consolidation. TTE EF 20-25%, diffuse hypokinesis/akinesis; mod/severe MR; PASP 39
[2022-06-20] MEDS ORDERED: FUROSEMIDE INJ 20 MG/2 ML VIAL IV SCH (12:01)
[2022-06-20] MEDS: SERTRALINE HCL 100 MG TABLET PO SCH (19:42)
[2022-06-20] MEDS: ACETAMINOPHEN 325 MG TAB PO PRN (19:42)
[2022-06-20] MEDS: MIRTAZAPINE TAB 15 MG TAB PO SCH (19:42)
[2022-06-20] MEDS: DICLOFENAC SOD 1% GEL 100 GM TUBE EXT PRN (19:43)
[2022-06-20] MEDS: FUROSEMIDE INJ 20 MG/2 ML VIAL IV SCH (19:45)
[2022-06-20] MEDS: LANTUS PER UNIT CHARGE SQ SCH (20:55)
--- NOTE | 2022-06-21 07:44 | Cardiology Progress Note ---
Date of Service June 21, 2022 Assessment & Plan (1) Acute on chronic systolic CHF (congestive heart failure): (2) Ischemic cardiomyopathy: (3) UTI (urinary tract infection): (4) Weakness: (5) CKD (chronic kidney disease): Plan IMPRESSION: Medically complex 72 year old female who initially presented to [facility] ED due to weakness. Found to be hypervolemic after a recent decrease in her outpatient diuretic regimen. Carries a history of ICM with a severely reduced LVEF of 20-24% per last echo dated 03/2020. S/p single-chamber AICD, implanted 09/12/2016 ([employer], model - Visia AF MRI VR [id number]) Also carries a history of pancytopenia, initially diagnosed in 2019.? Myelodysplastic syndrome- follows with hematology Echo results showing a severely reduced LVEF (known) with moderate vs pseudo aortic stenosis in the setting of low EF. PLAN: Currently on IV Lasix 20 mg twice daily per nephrology. Patient appears euvolemic on exam. Will hold afternoon dose of IV lasix and restart SITE MEDICAL DIRECTOR 20 mg PO Lasix daily tomorrow morning. Given CKD appreciate nephrology input on diuretic dosing. HR and BP well controlled. Continue cardiac medications as ordered. Recommend low sodium diet, daily weights, and strict I&Os. Recommend PT/OT eval due to ongoing weakness- will defer to primary team. ABX per primary team for treatment of UTI- likely contributing to weakness and increased confusion. Case discussed with Dr. Hernandez- will follow. Admission and Anticipated Discharge Date Admission Date: June 19, 2022 Supervising Physician Co-Signing Physician Notes I have personally seen and examined the patient along with Ramona TOVAR. Patient denies shortness of breath. No orthopnea, PND, or edema. Fluid balance -1.3 L with additional IV Lasix yesterday. Chronic dyspnea on exertion and limited functional capacity unchanged. No palpitations, lightheadedness, dizziness, syncope, or near syncope. The medical record and all available studies have been reviewed. Please refer to the note as detailed above for full PMH, PSH, social hx, family hx, active medication list and allergies. PE: VSS. Gen: NAD, awake and alert. Heart: Regular rhythm, normal S1S2. 1/6 holosystolic murmur heard best at the apex. Lungs: Clear bilateral without rales, rhonchi, or wheeze Ext: No edema. After discussion with Ramona TOVAR, I fully agree with the assessment and plan as documented above. Volume status improved, however, creatinine trending upward. Reduce Lasix to once daily. Appreciate nephrology input. Echocardiogram demonstrating severe LV systolic dysfunction, moderate aortic stenosis versus pseudo aortic stenosis, moderate to severe mitral regurgitation, and mild pulmonary hypertension. Continue other cardiovascular medications including metoprolol succinate, aspirin, and rosuvastatin. Patient is not a candidate for DASH inhibitor, angiotensin receptor pati, Entresto, or spironolactone due to renal insufficiency. Subjective Medically complex 72 year old female who initially presented to [facility] ED due to w eakness. Found to be hypervolemic after a recent decrease in her outpatient diuretic regimen. 06/20: Received 40 mg of IV Lasix in the emergency department on 06/19. Nephrology placed patient on IV Lasix 20 mg twice daily. Echo: LVEF 20 to 25% with diffuse hypokinesis to akinesis. Moderate aortic valve stenosis is suspected however severe aortic stenosis must be considered in the setting of severely reduced LV systolic function. Trace AI. Moderate to severe MR. Moderate TR. 06/21: Upon entrance into the room patient sleeping in bed. Woke easily. HOB flat. No sob, orthopnea, or PND. Denies acute concerns- eager for discharge. Tele: SR 70-80s I&O: -1.5L Weight: 64.5kg >> 66 >>64.2kg Review of Systems Review of Systems: All systems reviewed & are unremarkable except as noted in HPI & below Physical Exam Constitutional: no acute distress Eyes: PERRL, conjunctivae normal, anicteric sclerae Neck: normal visual inspection and trachea midline Respiratory: normal respiratory effort, lungs clear to auscultation Auscultation: + diminished lung sounds; no rales Cardiovascular: RRR, no murmur, no edema Heart Sounds: normal S1, normal S2 and + murmur (+1/6 systolic murmur) Vessels: no JVD Extremities: no edema Chest (Breasts): Chest: + pacemaker (right chest AICD) Gastrointestinal (Abdomen): normal bowel sounds, soft, nontender, no hepatosplenomegaly Skin: no rashes, warm and dry Psychiatric: Orientation: alert and oriented x 3 (periods of confusion, poor historian.) Results & Data Vital Signs (Past 12 Hours) Vital Signs Temp Pulse Pulse Resp BP Pulse Ox O2 Del Method 06/21/22 07:35 36.4 C L 18 110/70 98 Room Air 06/21/22 07:21 78 06/21/22 03:18 36.5 C 75 16 98/59 L 94 Room Air 06/20/22 23:20 37.0 C 90 16 110/70 98 Room Air 06/20/22 23:17 91 H 06/20/22 19:59 Room Air Laboratory Results CBC 06/21/22 Range/Units 07:09 WBC 2.23 L (4.8-10.8) K/ul RBC 3.29 L (4.20-5.40) M/uL Hgb 10.7 L (12.0-16.0) g/dl Hct 32.9 L (37.0-47.0) % Plt Count 47 L (130-400) K/uL Comprehensive Metabolic Panel 06/21/22 Range/Units 07:09 Sodium 141 (136-145) mmol/L Potassium 4.2 (3.5-5.1) mmol/L Chloride 107 (98-107) mmol/L Carbon Dioxide 26 (21-32) mmol/L BUN 71 H (6-23) mg/dl Creatinine 2.33 H (0.6-1.2) mg/dl Glucose 102 H (70-99(Fasting)) mg/dl Calcium 8.6 (8.5-10.1) mg/dl Intake and Output 06/20/22 06/21/22 06/21/22 22:59 06:59 14:59 Intake Total 240 / 685 50 / 50 Output Total 999 Balance -760 / -1315 -700 / -1315 50 / 50 Intake: IV 50 / 50 cefTRIAXone SODIUM 1,000 mg In 50 / 50 Dextrose 5% Ad-Van 50 ml @ 100 mls/hr IV Q24H [facility], [facility]–1983 Rx#:[id number] Oral 240 / 635 Output: Urine Amount (Catheter) 999 Nieto/Indwelling 999 Other: Weight 64.2 kg Weight Measurement Method Built in [facility]
[2022-06-21] MEDS: cefTRIAXone SODIUM 1,000 MG in DEXTROSE 5% AD-VAN 50 ML IV SCH (08:05)
[2022-06-21] MEDS: METOPROLOL SUCC 50MG EXT REL TAB PO SCH ×2 (08:06→20:43)
[2022-06-21] MEDS: FUROSEMIDE INJ 20 MG/2 ML VIAL IV SCH (08:07)
[2022-06-21] MEDS: SACCHAROMYCES BOULARDII 250 MG CAP PO SCH (08:07)
[2022-06-21] MEDS: GABAPENTIN 100 MG CAP PO SCH (08:08)
[2022-06-21] MEDS: ASPIRIN 81 MG ECTAB PO SCH (08:08)
[2022-06-21] MEDS: ROSUVASTATIN CALCIUM 20 MG TAB PO SCH (08:08)
[2022-06-21] MEDS: CHOLECALCIFEROL 1,000 UNITS 25 MCG TAB PO SCH (08:09)
[2022-06-21 08:12] LABS: Hematocrit (blood only) 32.9 % (37.0-47.0); Hemoglobin 10.7 g/dl (12.0-16.0); Mean Corpuscular Hemoglobin 32.5 pg (25.0-34.0); Mean Corpuscular Hgb Conc 32.5 g/dL (32.0-36.0); Mean Platelet Volume 11.6 fL (9.4-12.4); Platelet Count 47 K/uL (130-400); RDW Coefficient of Variation 15.8 % (11.5-14.5); RDW Standard Deviation 57.9 fL (36.4-46.3); Red Blood Count 3.29 M/uL (4.20-5.40); White Blood Count 2.23 K/ul (4.8-10.8)
[2022-06-21] MEDS: INSULIN ASPART PER UNIT CHARGE SC SCH ×4 (08:23→20:50)
[2022-06-21 08:36] LABS: BUN Creatinine Ratio 30.5 (10-20); Calcium 8.6 mg/dl (8.5-10.1); Creatinine Clr Calc Pharmacy 21.8 ml/min; Est GFR (African American) 23.3 ml/min; Est GFR (Non-African American) 20.1 ml/min; Magnesium 2.1 mg/dl (1.7-2.4); Phosphorus 4.3 mg/dl (2.5-4.9); Potassium 4.2 mmol/L (3.5-5.1)
--- NOTE | 2022-06-21 12:45 | Hospitalist Progress Note ---
Date of Service June 21, 2022 Assessment & Plan (1) Acute on chronic systolic CHF (congestive heart failure): (2) Hypertension: (3) Ischemic cardiomyopathy: (4) AICD (automatic cardioverter/defibrillator) present: (5) Aortic stenosis: Plan: -Last echo was completed in March 2020, showing an LVEF of 20 to 24%, thinning of the septum, left ventricular cavity is mildly enlarged, moderate aortic stenosis is suspected, mild MR is present -Repeated Echo 06/19/2022 LV is severely dilated. LV systolic function is severely reduced. EF 20 to 25%. Diffuse hypokinesis to akinesis. The septum is thinned and akinetic. Aortic valve leaflet opening is moderately reduced. Moderate aortic valve stenosis is suspected, however, pseudo aortic valve stenosis must be considered in the setting of severely reduced LVEF. Trace aortic regurg. There is moderate to severe mitral regurg. There is moderate tricuspid regurg. Estimated systolic pulmonary pressure is 39 mmHg. -Initial troponin is 19 -> 23 -BNP 2117 -CXR appears fluid overloaded, trace pitting edema in bilateral lower legs, + crackles on lung exam. -re-check CXR 1. Cardiomegaly and AICD with evidence of congestive failure. This is similar to today's earlier examination. 2. Layering pleural effusions with dependent consolidation. -Strict I/Os, daily weights, fluid restriction of 1500ml -Initial Lasix 40 mg IV administered in the ER -> on IV lasix 20 mg BID -> now transition to PO lasix -at home - p.o. furosemide which was recently reduced in half for 1 week timeframe and then resumed 40 mg x 1 dose 2 days ago. Typically uses lasix 3x per week. Previously was on this 5x per week several months ago. -Cardiology consulted with history of cardioverter/defibrillator and chf exacerbation -Nephrology consulted as they have been managing diuretic in the outpatient setting (6) Pancytopenia: Plan: - Overall persistent pancytopenia, following with Dr. Caruso, established care in March 2022, should now follow up in 3 months (scheduled to see him as outpatient on 07/13/2022) - No spontaneous bleeding - Rash over lower legs from MDS ? (7) DM II (diabetes mellitus, type II), controlled: Plan: -Last A1c was 7.5 % in December 2021, repeat -ISS with Accu-Cheks -Home Lantus 15 units at bedtime, reduce in half (8) UTI (urinary tract infection): Plan: - U cultx - + Proteus mirabilis - given dose of cefepime in the ER. Will continue with ceftriaxone - added probiotic with hx of diarrhea. Pt denies any urinary symptoms. - Memory issues likely exacerbated by acute infection, son provides hx of possible early onset dementia - monitor (9) CKD (chronic kidney disease): Plan: - Cr. 2.09/BUN 74, appears to be near baseline - Consulted nephrology, follows with Dr. Shahid as an outpatient DVT ppx - scds, no chemical ppx in the setting of thrombocytopenia CODE: Full code Dispo: From home, likely to remain in the hospital x 1-2 days Admission and Anticipated Discharge Date Admission Date: June 19, 2022 Subjective Pt seen in follow up of CHF exacerbation, uti, amb. dysfunction cardiology and nephrology consulted Pt on IV lasix -> now transitioned to PO lasix abx for uti Currently laying in bed, in no acute distress No chest pain palpitations or shortness of breath Reports feeling weak and has been having difficulty w/ ambulation Poor historian Review of Systems Review of Systems: All systems reviewed & are unremarkable except as noted in Subjective Physical Exam Physical Exam: General: chronically ill appearing F, awake, alert, in NAD, on RA Head: Normocephalic, atraumatic ENT: PERRL, EOMI, mucous membranes moist, poor dentition Chest: + minimal basilar Crackles, no wheezing Cardiac: Regular rate and rhythm, +systolic ejection murmur Abdominal: NABS x 4 quadrants, soft, nondistended, nontender to palpation, no rebound or guarding Extremities: +trace peripheral edema BLE, moves extremities, scds applied Skin: skin is dry, warm Neuro: AAO x 3, has difficulty with recall of information and chronological events, speech is fluent, no peripheral sensory deficits, moves extremities Results & Data Results & Data Vital Signs (Past 12 Hours) Vital Signs Temp Pulse Pulse Resp BP Pulse Ox O2 Del Method 06/21/22 12:11 36.6 C 78 16 98/63 L 96 Room Air 06/21/22 08:00 Room Air 06/21/22 07:35 36.4 C L 18 110/70 98 Room Air 06/21/22 07:21 78 06/21/22 03:18 36.5 C 75 16 98/59 L 94 Room Air Laboratory Results 06/21/22 06/21/22 06/21/22 Range/Units 11:23 07:30 07:09 WBC (4.8-10.8) K/ul RBC (4.20-5.40) M/uL Hgb (12.0-16.0) g/dl Hct (37.0-47.0) % MCV (80.0-100.0) fL MCH (25.0-34.0) pg MCHC (32.0-36.0) g/dL RDW Std Deviation (36.4-46.3) fL RDW Coeff of Nevaeh (11.5-14.5) % Plt Count (130-400) K/uL MPV (9.4-12.4) fL Sodium 141 (136-145) mmol/L Potassium 4.2 (3.5-5.1) mmol/L Chloride 107 (98-107) mmol/L Carbon Dioxide 26 (21-32) mmol/L Anion Gap 8 (3-11) BUN 71 H (6-23) mg/dl Creatinine 2.33 H (0.6-1.2) mg/dl Est Cr Clr Drug Dosing 21.8 ml/min Est GFR ( Amer) 23.3 ml/min Est GFR (Non-Af Amer) 20.1 ml/min BUN/Creatinine Ratio 30.5 H (10-20) Glucose 102 H (70-99(Fasting)) mg/dl POC Glucose 175 H 122 H (70-99) mg/dl Calcium 8.6 (8.5-10.1) mg/dl Phosphorus 4.3 (2.5-4.9) mg/dl Magnesium 2.1 (1.7-2.4) mg/dl 06/21/22 06/20/22 06/20/22 Range/Units 07:09 20:17 16:30 WBC 2.23 L (4.8-10.8) K/ul RBC 3.29 L (4.20-5.40) M/uL Hgb 10.7 L (12.0-16.0) g/dl Hct 32.9 L (37.0-47.0) % MCV 100.0 (80.0-100.0) fL MCH 32.5 (25.0-34.0) pg MCHC 32.5 (32.0-36.0) g/dL RDW Std Deviation 57.9 H (36.4-46.3) fL RDW Coeff of Nevaeh 15.8 H (11.5-14.5) % Plt Count 47 L (130-400) K/uL MPV 11.6 (9.4-12.4) fL Sodium (136-145) mmol/L Potassium (3.5-5.1) mmol/L Chloride (98-107) mmol/L Carbon Dioxide (21-32) mmol/L Anion Gap (3-11) BUN (6-23) mg/dl Creatinine (0.6-1.2) mg/dl Est Cr Clr Drug Dosing ml/min Est GFR ( Amer) ml/min Est GFR (Non-Af Amer) ml/min BUN/Creatinine Ratio (10-20) Glucose (70-99(Fasting)) mg/dl POC Glucose 116 H 78 (70-99) mg/dl Calcium (8.5-10.1) mg/dl Phosphorus (2.5-4.9) mg/dl Magnesium (1.7-2.4) mg/dl 06/20/22 06/20/22 Range/Units 16:14 16:13 WBC (4.8-10.8) K/ul RBC (4.20-5.40) M/uL Hgb (12.0-16.0) g/dl Hct (37.0-47.0) % MCV (80.0-100.0) fL MCH (25.0-34.0) pg MCHC (32.0-36.0) g/dL RDW Std Deviation (36.4-46.3) fL RDW Coeff of Nevaeh (11.5-14.5) % Plt Count (130-400) K/uL MPV (9.4-12.4) fL Sodium (136-145) mmol/L Potassium (3.5-5.1) mmol/L Chloride (98-107) mmol/L Carbon Dioxide (21-32) mmol/L Anion Gap (3-11) BUN (6-23) mg/dl Creatinine (0.6-1.2) mg/dl Est Cr Clr Drug Dosing ml/min Est GFR ( Amer) ml/min Est GFR (Non-Af Amer) ml/min BUN/Creatinine Ratio (10-20) Glucose (70-99(Fasting)) mg/dl POC Glucose 59 L* 60 L* (70-99) mg/dl Calcium (8.5-10.1) mg/dl Phosphorus (2.5-4.9) mg/dl Magnesium (1.7-2.4) mg/dl Medications Administered Current Inpatient Medications Acetaminophen (Acetaminophen 325 Mg Tab) 650 mg PO Q4H PRN PRN Reason: Moderate Pain (Scale 4, 5, 6) Stop: 07/19/22 17:51 Last Admin: 06/20/22 19:42 Dose: 650 mg Aspirin (Aspirin 81 Mg Ectab) 81 mg PO [facility] Stop: 07/20/22 08:59 Last Admin: 06/21/22 08:08 Dose: 81 mg Dextrose (Dextrose 50% 50 Ml Syringe) 25 - 50 ml IV UD PRN; Protocol PRN Reason: Hypoglycemia Protocol Stop: 07/19/22 17:51 Diclofenac Sodium (Diclofenac Sod 1% Gel 100 Gm Tube) 2 gm EXT QID PRN; Protocol PRN Reason: L handpain Stop: 07/19/22 20:51 Last Admin: 06/20/22 19:43 Dose: 2 gm Furosemide (Furosemide 20 Mg Tab) 20 mg PO MoWeFr@0900 [facility] Stop: 07/19/22 17:51 Last Admin: 06/20/22 09:44 Dose: 20 mg Furosemide (Furosemide 20 Mg Tab) 20 mg PO [facility] Stop: 07/22/22 08:59 Gabapentin (Gabapentin 100 Mg Cap) 100 mg PO [facility] Stop: 07/20/22 08:59 Last Admin: 06/21/22 08:08 Dose: 100 mg Glucagon (Glucagon For Inj 1 Mg Vial) 1 mg SQ UD PRN; Protocol PRN Reason: Hypoglycemia Protocol Stop: 07/19/22 17:51 Glucose (Glucose 10 Tab/Tube) 4 - 8 tab PO UD PRN; Protocol PRN Reason: Hypoglycemia Treatment Stop: 07/19/22 17:51 Glucose (Glucose 40% Gel 15 Gm Tube) 15 - 30 gm PO UD PRN; Protocol PRN Reason: Hypoglycemia Protocol Stop: 07/19/22 17:51 Ceftriaxone Sodium 1,000 mg/ (Dextrose) 50 mls @ 100 mls/hr IV Q24H [facility]; Protocol Stop: 06/25/22 08:59 Last Infusion: 06/21/22 08:51 Dose: Infused Insulin Aspart (Insulin Aspart Per Unit) 0 units SC ACHS [facility] Stop: 07/19/22 17:51 Last Admin: 06/21/22 12:13 Dose: 4 units Insulin Glargine (Lantus Per Unit Charge) 15 units SQ HS [facility] Stop: 07/19/22 20:59 Last Admin: 06/20/22 20:55 Dose: 15 units Metoprolol Succinate (Metoprolol Succ 50mg Ext Rel Tab) 50 mg PO BID [facility] Stop: 07/19/22 20:59 Last Admin: 06/21/22 08:06 Dose: 50 mg Mirtazapine (Mirtazapine Tab 15 Mg Tab) 7.5 mg PO HS [facility] Stop: 07/19/22 20:59 Last Admin: 06/20/22 19:42 Dose: 7.5 mg Miscellaneous (Carbohydrates For Hypoglycemia ) 15 - 30 gm PO UD PRN PRN Reason: Hypoglycemia Protocol Stop: 07/19/22 17:51 Last Admin: 06/20/22 16:15 Dose: 15 gm Ondansetron HCl (Ondansetron Inj 2 Mg/Ml 2 Ml Vial) 4 mg IV Q4H PRN PRN Reason: Nausea And Vomiting Stop: 07/19/22 17:51 Rosuvastatin Calcium (Rosuvastatin Calcium 20 Mg Tab) 20 mg PO QAM [facility] Stop: 07/20/22 08:59 Last Admin: 06/21/22 08:08 Dose: 20 mg Saccharomyces Boulardii (Saccharomyces Boulardii 250 Mg Cap) 250 mg PO DAILY [facility] Stop: 07/19/22 17:51 Last Admin: 06/21/22 08:07 Dose: 250 mg Sertraline HCl (Sertraline Hcl 100 Mg Tablet) 100 mg PO HS [facility] Stop: 07/19/22 20:59 Last Admin: 06/20/22 19:42 Dose: 100 mg Triamcinolone Acetonide (Triamcinolone Acet 0.1% Oint 15 Gm Tube) 1 appln EXT BID PRN PRN Reason: Itching Stop: 07/19/22 18:57 Vitamin D (Cholecalciferol 1,000 Units 25 Mcg Tab) 1,000 units PO DAILY [facility] Stop: 07/20/22 08:59 Last Admin: 06/21/22 08:09 Dose: 1,000 units
--- NOTE | 2022-06-21 13:24 | Nephrology Progress Note ---
Date of Service June 21, 2022 Assessment & Plan (1) Acute on chronic systolic CHF (congestive heart failure): Plan: had 40 mg IV in ER x 1, then 1 dose 20 mg IV lasix on 06/20 and today; changed by cardiology to po 20 mg daily starting tomorrow AM; she is 1.5L negative so far this admission >low threshold for CT given weakness/fatigue/ exam not in alignment with sx -daily bmp -agree w/ 1.5 L FR. lower Na diet -daily weights, standing weight much preferred if at all possible (2) Chronic renal disease, stage IV: Plan: basliene creatinine 2021 had been high ones > progressive renal dysfunction in 2022, did not respond to lower diuretic dosing unfortunately. baseline in 2022 more 1.9 creat; -stage one nonoliguric CORBY on CKD 4 -her MS is at baseline based on my OP encounters w/ her (3) UTI (urinary tract infection): Plan: -Proteus +; cont ceftriaxone per primary service chronic cystocele w/ frequent/recurrent UTI/+ urine cxs, s/p recent course of keflex late May/early June -?if this is cause of her fatigue (4) Cystocele: Plan: see above re UTI (5) Pancytopenia: Plan: has upcoming appt to est w/ hematology for eval 07/13; preliminary concern for MDS >? if this contributes to weakness, dyspnea >> low threshold for non con chest CT Admission and Anticipated Discharge Date Admission Date: June 19, 2022 Subjective ongoing c/o from pt that she's tired; no sob, no edema; no chest pain/palpitaitons/orthopnea; to date 1.5 L negative on admission Review of Systems Review of Systems: All systems reviewed & are unremarkable except as noted in Subjective Physical Exam Constitutional: well developed, well nourished, + frail appearing and cooperative; no acute distress Eyes: EOM intact bilaterally ENMT: Ears: no external ear abnormality Nose: no external nose abnormality Mouth: + dry oral mucous membranes Neck: no nuchal rigidity Respiratory: normal respiratory effort Auscultation: + diminished lung sounds Cardiovascular: Rate/Rhythm: regular rate and regular rhythm Vessels: no JVD Extremities: no edema Gastrointestinal (Abdomen): Inspection/Auscultation: normal bowel sounds Percussion/Palpation: abdomen soft; abdomen nontender Musculoskeletal: Extremities: strength 5/5 throughout and + abnormal strength (needs assist to sit forward for lung exam) Skin: no rashes, warm and dry Psychiatric: Orientation: oriented to person and oriented to place Eye Contact: good eye contact Speech: normal rate/rhythm/volume of speech Thought Process: + perseveration Insight: + limited insight Judgment: + limited judgement Results & Data Vital Signs (Past 12 Hours) Vital Signs Temp Pulse Pulse Resp BP Pulse Ox O2 Del Method 06/21/22 12:11 36.6 C 78 16 98/63 L 96 Room Air 06/21/22 08:00 Room Air 06/21/22 07:35 36.4 C L 18 110/70 98 Room Air 06/21/22 07:21 78 06/21/22 03:18 36.5 C 75 16 98/59 L 94 Room Air Laboratory Results 06/21/22 07:09 06/21/22 07:09 Diagnostic Findings 06/20 TTE reviewed
[2022-06-21] MEDS: MIRTAZAPINE TAB 15 MG TAB PO SCH (20:43)
[2022-06-21] MEDS: SERTRALINE HCL 100 MG TABLET PO SCH (20:43)
[2022-06-21] MEDS: ACETAMINOPHEN 325 MG TAB PO PRN (20:47)
[2022-06-21] MEDS: LANTUS PER UNIT CHARGE SQ SCH (20:50)
--- NOTE | 2022-06-21 23:21 | Electrocardiogram Report ---
Test Reason : Blood Pressure : / mmHG Vent. Rate : 088 BPM Atrial Rate : 088 BPM P-R Int : 200 ms QRS Dur : 104 ms QT Int : 398 ms P-R-T Axes : 056 001 256 degrees QTc Int : 481 ms Poor data quality, interpretation may be adversely affected Normal sinus rhythm Low voltage QRS Prolonged QT Abnormal ECG When compared with ECG of 07-MAR-2022 16:24, No significant change was found Confirmed by Eder Hopson ([id number]) on 06/21/2022 11:21:36 PM Referred By: REFERRED SELF Confirmed By:Eder Hopson
[2022-06-22 07:28] LABS: Hematocrit (blood only) 31.3 % (37.0-47.0); Hemoglobin 10.1 g/dl (12.0-16.0); Mean Corpuscular Hemoglobin 32.6 pg (25.0-34.0); Mean Corpuscular Hgb Conc 32.3 g/dL (32.0-36.0); Mean Platelet Volume 12.1 fL (9.4-12.4); Platelet Count 48 K/uL (130-400); RDW Coefficient of Variation 15.6 % (11.5-14.5); RDW Standard Deviation 58.4 fL (36.4-46.3)
[2022-06-22 07:49] LABS: BUN Creatinine Ratio 31.8 (10-20); Calcium 8.4 mg/dl (8.5-10.1); Creatinine Clr Calc Pharmacy 19.2 ml/min; Est GFR (Non-African American) 17.3 ml/min; Magnesium 2.1 mg/dl (1.7-2.4); Phosphorus 4.5 mg/dl (2.5-4.9); Potassium 4.6 mmol/L (3.5-5.1)
--- NOTE | 2022-06-22 08:02 | Cardiology Progress Note ---
Date of Service June 22, 2022 Assessment & Plan (1) Acute on chronic systolic CHF (congestive heart failure): (2) Ischemic cardiomyopathy: (3) UTI (urinary tract infection): (4) Weakness: (5) CKD (chronic kidney disease): Plan IMPRESSION: Medically complex 72 year old female who initially presented to [facility] ED due to weakness. Found to be hypervolemic after a recent decrease in her outpatient diuretic regimen. Carries a history of ICM with a severely reduced LVEF of 20-24% per last echo dated 03/2020. S/p single-chamber AICD, implanted 09/12/2016 ([employer], model - Visia AF MRI VR [id number]) Also carries a history of pancytopenia, initially diagnosed in 2019.? Myelodysplastic syndrome- follows with hematology Echo results showing a severely reduced LVEF (known) with moderate vs pseudo aortic stenosis in the setting of low EF. PLAN: -Patient appears euvolemic, possibly hypovolemic, on exam- scr increased above baseline. Will hold Lasix until seen by nephrology. -Echocardiogram demonstrating severe LV systolic dysfunction, moderate aortic stenosis versus pseudo aortic stenosis, moderate to severe mitral regurgitation, and mild pulmonary hypertension. Continue other cardiovascular medications including metoprolol succinate, aspirin, and rosuvastatin. Patient is not a candidate for DASH inhibitor, angiotensin receptor pati, Entresto, or spironolactone due to renal insufficiency. -Recommend low sodium diet, daily weights, and strict I&Os while inpatient -Recommend PT/OT eval due to ongoing weakness- will defer to primary team. -ABX per primary team for treatment of UTI- likely contributing to weakness and increased confusion. Case discussed with Dr. Hernandez- no further recommendations from a cardiology standpoint, Cardiology will sign off. Will defer to nephrology for diuretic dosing at discharge. Admission and Anticipated Discharge Date Admission Date: June 19, 2022 Supervising Physician Co-Signing Physician Notes I have personally seen and examined the patient along with Ramona TOVAR. Patient denies shortness of breath. No orthopnea, PND, or edema. Fluid balance 630cc with IV Lasix. Chronic dyspnea on exertion and limited functional capacity unchanged. No palpitations, lightheadedness, dizziness, syncope, or near syncope. The medical record and all available studies have been reviewed. PE: VSS. Gen: NAD, awake and alert. Heart: Regular rhythm, normal S1S2. 1/6 holosystolic murmur heard best at the apex. Lungs: Clear bilateral without rales, rhonchi, or wheeze Ext: No edema. After discussion with Ramona TOVAR, I fully agree with the assessment and plan as documented above. Volume status improved, however, creatinine continues trending upward. Lasix will be placed on hold. Appreciate nephrology input. Echocardiogram demonstrating severe LV systolic dysfunction, moderate aortic stenosis versus pseudo aortic stenosis, moderate to severe mitral regurgitation, and mild pulmonary hypertension. Continue other cardiovascular medications including metoprolol succinate, aspirin, and rosuvastatin. Patient is not a candidate for DASH inhibitor, angiotensin receptor pati, Entresto, or spironolactone due to renal insufficiency. Cardiology will sign off. Please call with any further concerns/questions. Subjective Medically complex 72 year old female who initially presented to [facility] ED due to weakness. Found to be hypervolemic after a recent decrease in her outpatient diuretic regimen. 06/20: Received 40 mg of IV Lasix in the emergency department on 06/19. Nephrology placed patient on IV Lasix 20 mg twice daily. Echo: LVEF 20 to 25% with diffuse hypokinesis to akinesis. Moderate aortic valve stenosis is suspected however severe aortic stenosis must be considered in the setting of severely reduced LV systolic function. Trace AI. Moderate to severe MR. Moderate TR. 06/21: IV Lasix stopped in favor of PO, 20 mg daily 06/22: Upon entrance into the room patient resting in the chair. No acute concerns. No chest pain. No sob, orthopnea, or PND. Denies acute concerns- eager for discharge. Labs: worsening creatine 2.64 this am Tele: SR PVCs 80-90s I&O: -2.3L Weight: 64.5kg >> 66 >>64.2kg>> no weight charted today (06/22) Review of Systems Review of Systems: All systems reviewed & are unremarkable except as noted in HPI & below Physical Exam Constitutional: WD/WN, vitals as above no acute distress Eyes: PERRL, conjunctivae normal, anicteric sclerae Neck: normal visual inspection and trachea midline Respiratory: normal respiratory effort, lungs clear to auscultation Aus cultation: + diminished lung sounds; no rales, no rhonchi and no wheezes Cardiovascular: RRR, no murmur, no edema Heart Sounds: normal S1, normal S2 and + murmur (+1/6 systolic murmur) Vessels: no JVD Extremities: no edema Chest (Breasts): Chest: + pacemaker (right chest AICD) Gastrointestinal (Abdomen): normal bowel sounds, soft, nontender, no hepatosplenomegaly Skin: no rashes, warm and dry Psychiatric: Orientation: alert and oriented x 3 (periods of confusion, poor historian.) Results & Data Vital Signs (Past 12 Hours) Vital Signs Temp Pulse Pulse Resp BP Pulse Ox O2 Del Method 06/22/22 07:32 87 06/22/22 07:11 36.5 C 89 18 89/59 L 97 Room Air 06/22/22 03:00 36.4 C L 88 16 113/70 95 Room Air 06/21/22 22:01 87 06/21/22 20:45 Room Air 06/21/22 22:40 36.7 C 87 20 112/67 95 Room Air Laboratory Results CBC 06/22/22 Range/Units 06:24 WBC 2.80 L (4.8-10.8) K/ul RBC 3.10 L (4.20-5.40) M/uL Hgb 10.1 L (12.0-16.0) g/dl Hct 31.3 L (37.0-47.0) % Plt Count 48 L (130-400) K/uL Comprehensive Metabolic Panel 06/22/22 Range/Units 06:24 Sodium 141 (136-145) mmol/L Potassium 4.6 (3.5-5.1) mmol/L Chloride 106 (98-107) mmol/L Carbon Dioxide 29 (21-32) mmol/L BUN 84 H (6-23) mg/dl Creatinine 2.64 H D (0.6-1.2) mg/dl Glucose 66 L (70-99(Fasting)) mg/dl Calcium 8.4 L (8.5-10.1) mg/dl Intake and Output 06/21/22 06/22/22 06/22/22 22:59 06:59 14:59 Output Total 400 / 1600 300 / 1600 Balance -400 / -790 -300 / -790 Output: Urine Amount (Catheter) 400 / 1600 300 / 1600 Nieto/Indwelling 400 / 1600 300 / 1600
[2022-06-22] MEDS: METOPROLOL SUCC 50MG EXT REL TAB PO SCH ×2 (08:18→20:32)
[2022-06-22] MEDS: GABAPENTIN 100 MG CAP PO SCH (08:18)
[2022-06-22] MEDS: CHOLECALCIFEROL 1,000 UNITS 25 MCG TAB PO SCH (08:18)
[2022-06-22] MEDS: ASPIRIN 81 MG ECTAB PO SCH (08:19)
[2022-06-22] MEDS: ROSUVASTATIN CALCIUM 20 MG TAB PO SCH (08:19)
[2022-06-22] MEDS: SACCHAROMYCES BOULARDII 250 MG CAP PO SCH (08:19)
[2022-06-22] MEDS: INSULIN ASPART PER UNIT CHARGE SC SCH ×4 (08:21→20:31)
[2022-06-22] MEDS ORDERED: FUROSEMIDE 20 MG TAB PO SCH (09:00)
[2022-06-22] MEDS: cefTRIAXone SODIUM 1,000 MG in DEXTROSE 5% AD-VAN 50 ML IV SCH (09:53)
--- NOTE | 2022-06-22 11:07 | Hospitalist Progress Note ---
Date of Service June 22, 2022 Assessment & Plan (1) Acute on chronic systolic CHF (congestive heart failure): (2) Hypertension: (3) Ischemic cardiomyopathy: (4) AICD (automatic cardioverter/defibrillator) present: (5) Aortic stenosis: Plan: -Last echo was completed in March 2020, showing an LVEF of 20 to 24%, thinning of the septum, left ventricular cavity is mildly enlarged, moderate aortic stenosis is suspected, mild MR is present -Repeated Echo 06/19/2022 LV is severely dilated. LV systolic function is severely reduced. EF 20 to 25%. Diffuse hypokinesis to akinesis. The septum is thinned and akinetic. Aortic valve leaflet opening is moderately reduced. Moderate aortic valve stenosis is suspected, however, pseudo aortic valve stenosis must be considered in the setting of severely reduced LVEF. Trace aortic regurg. There is moderate to severe mitral regurg. There is moderate tricuspid regurg. Estimated systolic pulmonary pressure is 39 mmHg. -Initial troponin is 19 -> 23 -BNP 2117 -CXR appears w/fluid overloaded, trace pitting edema in bilateral lower legs, + crackles on lung exam. -Strict I/Os, daily weights, fluid restriction of 1500ml -Initial Lasix 40 mg IV administered in the ER -> on IV lasix 20 mg BID -> transitioned to PO lasix - now on hold d/t hypotension and elev. Cr -at home - p.o. furosemide which was recently reduced in half for 1 week timeframe and then resumed 40 mg x 1 dose 2 days ago. Typically uses lasix 3x per week. Previously was on this 5x per week several months ago. -Cardiology consulted with history of cardioverter/defibrillator and chf exacerbation -Nephrology consulted as they have been managing diuretic in the outpatient setting (6) Pancytopenia: Plan: - Overall persistent pancytopenia, established care w/ heme/onc - Dr. Caruso (reviewed his note from March 2022, should now follow up in 3 months (scheduled to see him as outpatient on 07/13/2022) - No spontaneous bleeding - Rash over lower legs from MDS ? (7) DM II (diabetes mellitus, type II), controlled: Plan: -Last A1c was 7.5 % in December 2021, repeat -ISS with Accu-Cheks -Home Lantus 15 units at bedtime, reduce in half (8) UTI (urinary tract infection): Plan: - U cultx - + Proteus mirabilis - given dose of cefepime in the ER -Continue with ceftriaxone - added probiotic with hx of diarrhea. Pt denies any urinary symptoms. - Memory issues likely exacerbated by acute infection, son provides hx of possible early onset dementia - monitor - mental status seems near/ at baseline (9) CKD (chronic kidney disease): Plan: - Cr. 2.09/BUN 74, appears to be near baseline - however now Cr up at 2.6 after diuresis - Consulted nephrology, follows with Dr. Shahid as an outpatient - appreciate nephrology input DVT ppx - scds, no chemical ppx in the setting of thrombocytopenia CODE: Full code Dispo: From home, likely to remain in the hospital x 1-2 days Admission and Anticipated Discharge Date Admission Date: June 19, 2022 Subjective Pt seen in follow up of CHF exacerbation, uti, amb. dysfunction cardiology and nephrology consulted Pt on IV lasix -> transitioned to PO lasix, however now on hold as Cr up and BP low abx for uti Currently laying in bed, in no acute distress No chest pain palpitations or shortness of breath Reports feeling weak and has been having difficulty w/ ambulation Poor historian Two daughters present at the bedside. Review of Systems Review of Systems: All systems reviewed & are unremarkable except as noted in Subjective Physical Exam Physical Exam: General: chronically ill appearing F, awake, alert, in NAD, on RA Head: Normocephalic, atraumatic ENT: PERRL, EOMI, mucous membranes moist, poor dentition Chest:CTAB, somewhat diminished, no wheezing Cardiac: Regular rate and rhythm, +systolic ejection murmur Abdominal: NABS x 4 quadrants, soft, nondistended, nontender to palpation, no rebound or guarding Extremities: no peripheral edema BLE, moves extremities, scds applied Skin: skin is dry, warm Neuro: AAO x 3, has difficulty with recall of information and chronological events, speech is fluent, no peripheral sensory deficits, moves extremities Results & Data Results & Data Vital Signs (Past 12 Hours) Vital Signs Temp Pulse Pulse Resp BP Pulse Ox O2 Del Method 06/22/22 10:55 36.5 C 75 18 85/54 L 95 Room Air 06/22/22 07:32 87 06/22/22 07:11 36.5 C 89 18 89/59 L 97 Room Air 06/22/22 03:00 36.4 C L 88 16 113/70 95 Room Air Laboratory Results 06/22/22 06/22/22 06/22/22 Range/Units 07:34 06:24 06:24 WBC 2.80 L (4.8-10.8) K/ul RBC 3.10 L (4.20-5.40) M/uL Hgb 10.1 L (12.0-16.0) g/dl Hct 31.3 L (37.0-47.0) % MCV 101.0 H (80.0-100.0) fL MCH 32.6 (25.0-34.0) pg MCHC 32.3 (32.0-36.0) g/dL RDW Std Deviation 58.4 H (36.4-46.3) fL RDW Coeff of Nevaeh 15.6 H (11.5-14.5) % Plt Count 48 L (130-400) K/uL MPV 12.1 (9.4-12.4) fL Sodium 141 (136-145) mmol/L Potassium 4.6 (3.5-5.1) mmol/L Chloride 106 (98-107) mmol/L Carbon Dioxide 29 (21-32) mmol/L Anion Gap 6 (3-11) BUN 84 H (6-23) mg/dl Creatinine 2.64 H D (0.6-1.2) mg/dl Est Cr Clr Drug Dosing 19.2 ml/min Est GFR ( Amer) 20.0 ml/min Est GFR (Non-Af Amer) 17.3 ml/min BUN/Creatinine Ratio 31.8 H (10-20) Glucose 66 L (70-99(Fasting)) mg/dl POC Glucose 78 (70-99) mg/dl Calcium 8.4 L (8.5-10.1) mg/dl Phosphorus 4.5 (2.5-4.9) mg/dl Magnesium 2.1 (1.7-2.4) mg/dl 06/21/22 06/21/22 06/21/22 Range/Units 20:12 16:09 11:23 WBC (4.8-10.8) K/ul RBC (4.20-5.40) M/uL Hgb (12.0-16.0) g/dl Hct (37.0-47.0) % MCV (80.0-100.0) fL MCH (25.0-34.0) pg MCHC (32.0-36.0) g/dL RDW Std Deviation (36.4-46.3) fL RDW Coeff of Nevaeh (11.5-14.5) % Plt Count (130-400) K/uL MPV (9.4-12.4) fL Sodium (136-145) mmol/L Potassium (3.5-5.1) mmol/L Chloride (98-107) mmol/L Carbon Dioxide (21-32) mmol/L Anion Gap (3-11) BUN (6-23) mg/dl Creatinine (0.6-1.2) mg/dl Est Cr Clr Drug Dosing ml/min Est GFR ( Amer) ml/min Est GFR (Non-Af Amer) ml/min BUN/Creatinine Ratio (10-20) Glucose (70-99(Fasting)) mg/dl POC Glucose 276 H 133 H 175 H (70-99) mg/dl Calcium (8.5-10.1) mg/dl Phosphorus (2.5-4.9) mg/dl Magnesium (1.7-2.4) mg/dl Medications Administered Current Inpatient Medications Acetaminophen (Acetaminophen 325 Mg Tab) 650 mg PO Q4H PRN PRN Reason: Moderate Pain (Scale 4, 5, 6) Stop: 07/19/22 17:51 Last Admin: 06/21/22 20:47 Dose: 650 mg Aspirin (Aspirin 81 Mg Ectab) 81 mg PO QAM [facility] Stop: 07/20/22 08:59 Last Admin: 06/22/22 08:19 Dose: 81 mg Dextrose (Dextrose 50% 50 Ml Syringe) 25 - 50 ml IV UD PRN; Protocol PRN Reason: Hypoglycemia Protocol Stop: 07/19/22 17:51 Diclofenac Sodium (Diclofenac Sod 1% Gel 100 Gm Tube) 2 gm EXT QID PRN; Protocol PRN Reason: L handpain Stop: 07/19/22 20:51 Last Admin: 06/20/22 19:43 Dose: 2 gm Furosemide (Furosemide 20 Mg Tab) 20 mg PO [id number] [facility] Stop: 07/19/22 17:51 Last Admin: 06/20/22 09:44 Dose: 20 mg Gabapentin (Gabapentin 100 Mg Cap) 100 mg PO QAM [facility] Stop: 07/20/22 08:59 Last Admin: 06/22/22 08:18 Dose: 100 mg Glucagon (Glucagon For Inj 1 Mg Vial) 1 mg SQ UD PRN; Protocol PRN Reason: Hypoglycemia Protocol Stop: 07/19/22 17:51 Glucose (Glucose 10 Tab/Tube) 4 - 8 tab PO UD PRN; Protocol PRN Reason: Hypoglycemia Treatment Stop: 07/19/22 17:51 Glucose (Glucose 40% Gel 15 Gm Tube) 15 - 30 gm PO UD PRN; Protocol PRN Reason: Hypoglycemia Protocol Stop: 07/19/22 17:51 Ceftriaxone Sodium 1,000 mg/ (Dextrose) 50 mls @ 100 mls/hr IV Q24H [facility]; Protocol Stop: 06/25/22 08:59 Last Infusion: 06/22/22 10:44 Dose: Infused Insulin Aspart (Insulin Aspart Per Unit) 0 units SC ACHS [facility] Stop: 07/19/22 17:51 Last Admin: 06/22/22 08:21 Dose: 1 units Insulin Glargine (Lantus Per Unit Charge) 15 units SQ HS [facility] Stop: 07/19/22 20:59 Last Admin: 06/21/22 20:50 Dose: 15 units Metoprolol Succinate (Metoprolol Succ 50mg Ext Rel Tab) 50 mg PO BID [facility] Stop: 07/19/22 20:59 Last Admin: 06/22/22 08:18 Dose: Not Given Mirtazapine (Mirtazapine Tab 15 Mg Tab) 7.5 mg PO HS [facility] Stop: 07/19/22 20:59 Last Admin: 06/21/22 20:43 Dose: 7.5 mg Miscellaneous (Carbohydrates For Hypoglycemia ) 15 - 30 gm PO UD PRN PRN Reason: Hypoglycemia Protocol Stop: 07/19/22 17:51 Last Admin: 06/20/22 16:15 Dose: 15 gm Ondansetron HCl (Ondansetron Inj 2 Mg/Ml 2 Ml Vial) 4 mg IV Q4H PRN PRN Reason: Nausea And Vomiting Stop: 07/19/22 17:51 Rosuvastatin Calcium (Rosuvastatin Calcium 20 Mg Tab) 20 mg PO QAM [facility] Stop: 07/20/22 08:59 Last Admin: 06/22/22 08:19 Dose: 20 mg Saccharomyces Boulardii (Saccharomyces Boulardii 250 Mg Cap) 250 mg PO DAILY TED Stop: 07/19/22 17:51 Last Admin: 06/22/22 08:19 Dose: 250 mg Sertraline HCl (Sertraline Hcl 100 Mg Tablet) 100 mg PO HS TED Stop: 07/19/22 20:59 Last Admin: 06/21/22 20:43 Dose: 100 mg Triamcinolone Acetonide (Triamcinolone Acet 0.1% Oint 15 Gm Tube) 1 appln EXT BID PRN PRN Reason: Itching Stop: 07/19/22 18:57 Vitamin D (Cholecalciferol 1,000 Units 25 Mcg Tab) 1,000 units PO DAILY TED Stop: 07/20/22 08:59 Last Admin: 06/22/22 08:18 Dose: 1,000 units
[2022-06-22] MEDS: ACETAMINOPHEN 325 MG TAB PO PRN ×2 (15:30→20:33)
--- NOTE | 2022-06-22 16:13 | Nephrology Progress Note ---
Date of Service June 22, 2022 Assessment & Plan (1) Acute on chronic systolic CHF (congestive heart failure): Plan: had 40 mg IV in ER x 1, then 1 dose 20 mg IV lasix on 06/20 and today; changed by cardiology to po 20 mg Saturday but held today; she is 2.1L negative so far this admission -daily bmp -Continue to hold Lasix > tomorrow could resume 40 mg on Sat then resume MWF 40 mg lasix po -agree w/ 1.5 L FR. lower Na diet -daily weights, standing weight much preferred if at all possible (2) Chronic renal disease, stage IV: Plan: basliene creatinine 2021 had been high ones > progressive renal dysfunction in 2022, did not respond to lower diuretic dosing unfortunately. baseline in 2022 more 1.9 creat; -stage one nonoliguric CORBY on CKD 4 -her MS is at baseline based on my OP encounters w/ her (3) UTI (urinary tract infection): Plan: -Proteus +; cont ceftriaxone per primary service chronic cystocele w/ frequent/recurrent UTI/+ urine cxs, s/p recent course of keflex late May/early June; once again with P mirabilis on urine culture -?if this is cause of her fatigue (4) Cystocele: Plan: see above re UTI (5) Pancytopenia: Plan: has upcoming appt to est w/ hematology for eval 07/13; preliminary concern for MDS >? if this contributes to weakness, dyspnea >> low threshold for non con chest CT Admission and Anticipated Discharge Date Admission Date: June 19, 2022 Subjective Lasix held by cardiology this morning due to worsened serum creatinine; feels better today/stronger; was up to chair and did PT Review of Systems Review of Systems: All systems reviewed & are unremarkable except as noted in Subjective Physical Exam Constitutional: well developed, well nourished, + frail appearing and cooperative; no acute distress Eyes: EOM intact bilaterally ENMT: Ears: no external ear abnormality Nose: no external nose abnormality Mouth: + dry oral mucous membranes Neck: no nuchal rigidity Respiratory: normal respiratory effort Auscultation: + diminished lung so unds Cardiovascular: Rate/Rhythm: regular rate and regular rhythm Vessels: no JVD Extremities: no edema Gastrointestinal (Abdomen): Inspection/Auscultation: normal bowel sounds Percussion/Palpation: abdomen soft; abdomen nontender Musculoskeletal: Extremities: strength 5/5 throughout and + abnormal strength (needs assist to sit forward for lung exam) Skin: no rashes, warm and dry Psychiatric: Orientation: oriented to person and oriented to place Eye Cont act: good eye contact Speech: normal rate/rhythm/volume of speech Thought Process: + perseveration Insight: + limited insight Judgment: + limited judgement Results & Data Vital Signs (Past 12 Hours) Vital Signs Temp Pulse Pulse Resp BP Pulse Ox O2 Del Method 06/22/22 10:55 36.5 C 75 18 85/54 L 95 Room Air 06/22/22 07:32 87 06/22/22 07:11 36.5 C 89 18 89/59 L 97 Room Air Laboratory Results 06/22/22 06:24 06/22/22 06:24
[2022-06-22] MEDS: LANTUS PER UNIT CHARGE SQ SCH (20:30)
[2022-06-22] MEDS: SERTRALINE HCL 100 MG TABLET PO SCH (20:32)
[2022-06-22] MEDS: MIRTAZAPINE TAB 15 MG TAB PO SCH (20:33)
[2022-06-22] MEDS ORDERED: oxyCODONE HCL IR 5 MG TAB (IMMEDIATE RELEASE) PO STA (23:34)
[2022-06-23 07:35] LABS: Hematocrit (blood only) 31.7 % (37.0-47.0); Hemoglobin 10.2 g/dl (12.0-16.0); Mean Corpuscular Hemoglobin 33.2 pg (25.0-34.0); Mean Corpuscular Hgb Conc 32.2 g/dL (32.0-36.0); Mean Corpuscular Volume 103.3 fL (80.0-100.0); Mean Platelet Volume 12.2 fL (9.4-12.4); Platelet Count 44 K/uL (130-400); RDW Coefficient of Variation 15.8 % (11.5-14.5); RDW Standard Deviation 59.9 fL (36.4-46.3); Red Blood Count 3.07 M/uL (4.20-5.40)
[2022-06-23 07:57] LABS: Calcium 8.4 mg/dl (8.5-10.1); Creatinine Clr Calc Pharmacy 20.5 ml/min; Est GFR (African American) 22.2 ml/min; Est GFR (Non-African American) 19.2 ml/min; Magnesium 2.3 mg/dl (1.7-2.4); Phosphorus 5.1 mg/dl (2.5-4.9); Potassium 5.3 mmol/L (3.5-5.1)
[2022-06-23] MEDS: METOPROLOL SUCC 50MG EXT REL TAB PO SCH ×2 (09:01→21:32)
[2022-06-23] MEDS: SACCHAROMYCES BOULARDII 250 MG CAP PO SCH (09:02)
[2022-06-23] MEDS: ASPIRIN 81 MG ECTAB PO SCH (09:02)
[2022-06-23] MEDS: ROSUVASTATIN CALCIUM 20 MG TAB PO SCH (09:02)
[2022-06-23] MEDS: CHOLECALCIFEROL 1,000 UNITS 25 MCG TAB PO SCH (09:02)
[2022-06-23] MEDS: GABAPENTIN 100 MG CAP PO SCH (09:02)
[2022-06-23] MEDS: INSULIN ASPART PER UNIT CHARGE SC SCH ×4 (09:03→21:40)
--- NOTE | 2022-06-23 09:18 | Hospitalist Progress Note ---
Date of Service June 23, 2022 Assessment & Plan (1) Acute on chronic systolic CHF (congestive heart failure): (2) Hypertension: (3) Ischemic cardiomyopathy: (4) AICD (automatic cardioverter/defibrillator) present: (5) Aortic stenosis: Plan: -Last echo was completed in March 2020, showing an LVEF of 20 to 24%, thinning of the septum, left ventricular cavity is mildly enlarged, moderate aortic stenosis is suspected, mild MR is present -Repeated Echo 06/19/2022 LV is severely dilated. LV systolic function is severely reduced. EF 20 to 25%. Diffuse hypokinesis to akinesis. The septum is thinned and akinetic. Aortic valve leaflet opening is moderately reduced. Moderate aortic valve stenosis is suspected, however, pseudo aortic valve stenosis must be considered in the setting of severely reduced LVEF. Trace aortic regurg. There is moderate to severe mitral regurg. There is moderate tricuspid regurg. Estimated systolic pulmonary pressure is 39 mmHg. -Initial troponin is 19 -> 23 -BNP 2117 -CXR appears w/fluid overloaded, trace pitting edema in bilateral lower legs, + crackles on lung exam. -Strict I/Os, daily weights, fluid restriction of 1500ml -Initial Lasix 40 mg IV administered in the ER -> on IV lasix 20 mg BID -> transitioned to PO lasix - on hold yesterday (06/22) d/t hypotension and elev. Cr -at home - p.o. furosemide which was recently reduced in half for 1 week timeframe and then resumed 40 mg x 1 dose 2 days ago. Typically uses lasix 3x per week. Previously was on this 5x per week several months ago. -Resume PO lasix 20 daily -Cardiology consulted with history of cardioverter/defibrillator and chf exacerbation -Nephrology consulted as they have been managing diuretic in the outpatient setting (6) Pancytopenia: Plan: - Overall persistent pancytopenia, established care w/ heme/onc - Dr. Caruso (reviewed his note from March 2022, should now follow up in 3 months (scheduled to see him as outpatient on 07/13/2022) - No spontaneous bleeding - Rash over lower legs from MDS ? (7) DM II (diabetes mellitus, type II), controlled: Plan: -Last A1c was 7.5 % in December 2021, repeat -ISS with Accu-Cheks -Home Lantus 15 units at bedtime, reduce in half (8) UTI (urinary tract infection): Plan: - U cultx - + Proteus mirabilis - given dose of cefepime in the ER - Continue with ceftriaxone - added probiotic with hx of diarrhea. Pt denies any urinary symptoms. - Memory issues likely exacerbated by acute infection, son provides hx of possible early onset dementia - monitor - mental status seems near/ at baseline (9) CKD (chronic kidney disease): Plan: - Cr. 2.09/BUN 74, appears to be near baseline - however now Cr up at 2.6 after diuresis - Consulted nephrology, follows with Dr. Shahid as an outpatient - appreciate nephrology input DVT ppx - scds, no chemical ppx in the setting of thrombocytopenia CODE: Full code Dispo: From home, likely to remain in the hospital x 1-2 days Admission and Anticipated Discharge Date Admission Date: June 19, 2022 Subjective Pt seen in follow up of CHF exacerbation, uti, amb. dysfunction cardiology and nephrology consulted transitioned to PO lasix, on hold yesterday abx for uti Currently sitting up in chair, in no acute distress No chest pain palpitations or shortness of breath +weak and has been having difficulty w/ ambulation Poor historian Daughters updated at the bedside yesterday, son updated over the phone. Review of Systems Review of Systems: All systems reviewed & are unremarkable except as noted in Subjective Physical Exam Physical Exam: General: chronically ill appearing F, awake, alert, in NAD, on RA Head: Normocephalic, atraumatic ENT: PERRL, EOMI, mucous membranes moist, poor dentition Chest:CTAB, somewhat diminished, no wheezing Cardiac: Regular rate and rhythm, +systolic ejection murmur Abdominal: NABS x 4 quadrants, soft, nondistended, nontender to palpation, no rebound or guarding Extremities: no peripheral edema BLE, moves extremities Skin: skin is dry, warm Neuro: AAO x 3, has difficulty with recall of information and chronological events, speech is fluent, no peripheral sensory deficits, moves extremities Results & Data Results & Data Vital Signs (Past 12 Hours) Vital Signs Temp Pulse Pulse Resp BP Pulse Ox O2 Del Method 06/23/22 07:41 70 06/23/22 07:37 36.4 C L 71 16 105/67 95 Room Air 06/23/22 02:42 Room Air 06/23/22 02:42 36.4 C L 103 H 18 128/73 95 Room Air 06/22/22 23:59 36.4 C L 89 12 125/92 94 Room Air 06/22/22 22:00 79 Laboratory Results 06/23/22 06/23/22 06/23/22 Range/Units 11:28 11:27 07:31 WBC (4.8-10.8) K/ul RBC (4.20-5.40) M/uL Hgb (12.0-16.0) g/dl Hct (37.0-47.0) % MCV (80.0-100.0) fL MCH (25.0-34.0) pg MCHC (32.0-36.0) g/dL RDW Std Deviation (36.4-46.3) fL RDW Coeff of Nevaeh (11.5-14.5) % Plt Count (130-400) K/uL MPV (9.4-12.4) fL Sodium (136-145) mmol/L Potassium (3.5-5.1) mmol/L Chloride (98-107) mmol/L Carbon Dioxide (21-32) mmol/L Anion Gap (3-11) BUN (6-23) mg/dl Creatinine (0.6-1.2) mg/dl Est Cr Clr Drug Dosing ml/min Est GFR ( Amer) ml/min Est GFR (Non-Af Amer) ml/min BUN/Creatinine Ratio (10-20) Glucose (70-99(Fasting)) mg/dl POC Glucose 406 H* 382 H* 132 H (70-99) mg/dl Calcium (8.5-10.1) mg/dl Phosphorus (2.5-4.9) mg/dl Magnesium (1.7-2.4) mg/dl 06/23/22 06/23/22 06/23/22 Range/Units 06:42 06:42 02:07 WBC 2.30 L (4.8-10.8) K/ul RBC 3.07 L (4.20-5.40) M/uL Hgb 10.2 L (12.0-16.0) g/dl Hct 31.7 L (37.0-47.0) % MCV 103.3 H (80.0-100.0) fL MCH 33.2 (25.0-34.0) pg MCHC 32.2 (32.0-36.0) g/dL RDW Std Deviation 59.9 H (36.4-46.3) fL RDW Coeff of Nevaeh 15.8 H (11.5-14.5) % Plt Count 44 L (130-400) K/uL MPV 12.2 (9.4-12.4) fL Sodium 139 (136-145) mmol/L Potassium 5.3 H (3.5-5.1) mmol/L Chloride 106 (98-107) mmol/L Carbon Dioxide 26 (21-32) mmol/L Anion Gap 7 (3-11) BUN 87 H (6-23) mg/dl Creatinine 2.42 H (0.6-1.2) mg/dl Est Cr Clr Drug Dosing 20.5 ml/min Est GFR ( Amer) 22.2 ml/min Est GFR (Non-Af Amer) 19.2 ml/min BUN/Creatinine Ratio 36.0 H (10-20) Glucose 125 H (70-99(Fasting)) mg/dl POC Glucose 144 H (70-99) mg/dl Calcium 8.4 L (8.5-10.1) mg/dl Phosphorus 5.1 H (2.5-4.9) mg/dl Magnesium 2.3 (1.7-2.4) mg/dl 06/22/22 06/22/22 Range/Units 20:09 16:27 WBC (4.8-10.8) K/ul RBC (4.20-5.40) M/uL Hgb (12.0-16.0) g/dl Hct (37.0-47.0) % MCV (80.0-100.0) fL MCH (25.0-34.0) pg MCHC (32.0-36.0) g/dL RDW Std Deviation (36.4-46.3) fL RDW Coeff of Nevaeh (11.5-14.5) % Plt Count (130-400) K/uL MPV (9.4-12.4) fL Sodium (136-145) mmol/L Potassium (3.5-5.1) mmol/L Chloride (98-107) mmol/L Carbon Dioxide (21-32) mmol/L Anion Gap (3-11) BUN (6-23) mg/dl Creatinine (0.6-1.2) mg/dl Est Cr Clr Drug Dosing ml/min Est GFR ( Amer) ml/min Est GFR (Non-Af Amer) ml/min BUN/Creatinine Ratio (10-20) Glucose (70-99(Fasting)) mg/dl POC Glucose 194 H 163 H (70-99) mg/dl Calcium (8.5-10.1) mg/dl Phosphorus (2.5-4.9) mg/dl Magnesium (1.7-2.4) mg/dl Medications Administered Current Inpatient Medications Acetaminophen (Acetaminophen 325 Mg Tab) 650 mg PO Q4H PRN PRN Reason: Moderate Pain (Scale 4, 5, 6) Stop: 07/19/22 17:51 Last Admin: 06/22/22 20:33 Dose: 650 mg Aspirin (Aspirin 81 Mg Ectab) 81 mg PO [facility] Stop: 07/20/22 08:59 Last Admin: 06/23/22 09:02 Dose: 81 mg Dextrose (Dextrose 50% 50 Ml Syringe) 25 - 50 ml IV UD PRN; Protocol PRN Reason: Hypoglycemia Protocol Stop: 07/19/22 17:51 Diclofenac Sodium (Diclofenac Sod 1% Gel 100 Gm Tube) 2 gm EXT QID PRN; Jesi col PRN Reason: L handpain Stop: 07/19/22 20:51 Last Admin: 06/20/22 19:43 Dose: 2 gm Furosemide (Furosemide 20 Mg Tab) 20 mg PO [facility] Stop: 07/23/22 11:59 Gabapentin (Gabapentin 100 Mg Cap) 100 mg PO [facility] Stop: 07/20/22 08:59 Last Admin: 06/23/22 09:02 Dose: 100 mg Glucagon (Glucagon For Inj 1 Mg Vial) 1 mg SQ UD PRN; Protocol PRN Reason: Hypoglycemia Protocol Stop: 07/19/22 17:51 Glucose (Glucose 10 Tab/Tube) 4 - 8 tab PO UD PRN; Protocol PRN Reason: Hypoglycemia Treatment Stop: 07/19/22 17:51 Glucose (Glucose 40% Gel 15 Gm Tube) 15 - 30 gm PO UD PRN; Protocol PRN Reason: Hypoglycemia Protocol Stop: 07/19/22 17:51 Ceftriaxone Sodium 1,000 mg/ (Dextrose) 50 mls @ 100 mls/hr IV Q24H [facility]; Protocol Stop: 06/25/22 08:59 Last Infusion: 06/23/22 10:27 Dose: Infused Insulin Aspart (Insulin Aspart Per Unit) 0 units SC ACHS [facility] Stop: 07/19/22 17:51 Last Admin: 06/23/22 12:11 Dose: 9 units Insulin Glargine (Lantus Per Unit Charge) 15 units SQ HS [facility] Stop: 07/19/22 20:59 Last Admin: 06/22/22 20:30 Dose: 15 units Metoprolol Succinate (Metoprolol Succ 50mg Ext Rel Tab) 50 mg PO BID [facility] Stop: 07/19/22 20:59 Last Admin: 06/23/22 09:01 Dose: 50 mg Mirtazapine (Mirtazapine Tab 15 Mg Tab) 7.5 mg PO HS [facility] Stop: 07/19/22 20:59 Last Admin: 06/22/22 20:33 Dose: 7.5 mg Miscellaneous (Carbohydrates For Hypoglycemia ) 15 - 30 gm PO UD PRN PRN Reason: Hypoglycemia Protocol Stop: 07/19/22 17:51 Last Admin: 06/20/22 16:15 Dose: 15 gm Ondansetron HCl (Ondansetron Inj 2 Mg/Ml 2 Ml Vial) 4 mg IV Q4H PRN PRN Reason: Nausea And Vomiting Stop: 07/19/22 17:51 Last Admin: 06/23/22 02:05 Dose: 4 mg Rosuvastatin Calcium (Rosuvastatin Calcium 20 Mg Tab) 20 mg PO QAM [facility] Stop: 07/20/22 08:59 Last Admin: 06/23/22 09:02 Dose: 20 mg Saccharomyces Boulardii (Saccharomyces Boulardii 250 Mg Cap) 250 mg PO DAILY [facility] Stop: 07/19/22 17:51 Last Admin: 06/23/22 09:02 Dose: 250 mg Sertraline HCl (Sertraline Hcl 100 Mg Tablet) 100 mg PO HS [facility] Stop: 07/19/22 20:59 Last Admin: 06/22/22 20:32 Dose: 100 mg Triamcinolone Acetonide (Triamcinolone Acet 0.1% Oint 15 Gm Tube) 1 appln EXT BID PRN PRN Reason: Itching Stop: 04/13/23 18:57 Vitamin D (Cholecalciferol 1,000 Units 25 Mcg Tab) 1,000 units PO DAILY [facility] Stop: 07/20/22 08:59 Last Admin: 06/23/22 09:02 Dose: 1,000 units
[2022-06-23] MEDS: cefTRIAXone SODIUM 1,000 MG in DEXTROSE 5% AD-VAN 50 ML IV SCH (09:53)
--- NOTE | 2022-06-23 11:56 | Nephrology Progress Note ---
Date of Service June 23, 2022 Assessment & Plan Admission and Anticipated Discharge Date Admission Date: June 19, 2022 Subjective [facility], [id number] Nephrology Progress Note Signed Assessment & Plan (1) Acute on chronic systolic CHF (congestive heart failure): Plan: Start lasix 20 daily po. She appears fairly euvolemic at this time but this is a fairly low dose Her recent creat baseline has been rising and is already around 2. So current creat is close to baseline. slightly high K with high glucose (2) Chronic renal disease, stage IV: Plan: baseline creatinine 2021 had been high ones > progressive renal dysfunction in 2022, did not respond to lower diuretic dosing unfortunately. baseline in 2022 more 1.9 creat; CKD 4 -her MS is at baseline based on my OP encounters w/ her (3) UTI (urinary tract infection): Plan: -Proteus +; cont ceftriaxone per primary service chronic cystocele w/ frequent/recurrent UTI/+ urine cxs, s/p recent course of keflex late May/early June; once again with P mirabilis on urine culture (4) Cystocele: Plan: see above re UTI Subjective was very tearful because her glucose was 400+. No SOb and no edema and is on RA with 95%. Results & Data Vital Signs (Past 12 Hours) Vital Signs Temp Pulse Pulse Resp BP Pulse Ox O2 Del Method 06/23/22 10:01 Room Air 06/23/22 07:41 70 06/23/22 07:37 36.4 C L 71 16 105/67 95 Room Air 06/23/22 02:42 Room Air 06/23/22 02:42 36.4 C L 103 H 18 128/73 95 Room Air 06/22/22 23:59 36.4 C L 89 12 125/92 94 Room Air
[2022-06-23] MEDS: FUROSEMIDE 20 MG TAB PO SCH (13:03)
[2022-06-23] MEDS ORDERED: INSULIN ASPART PER UNIT CHARGE SC STA (13:22)
[2022-06-23] MEDS ORDERED: DAPTOmycin 500 MG in SYRINGE 0 ML IV ONE (16:30)
[2022-06-23] MEDS ORDERED: SODIUM CHLORIDE 0.9% 500 ML IV SCH (20:15)
[2022-06-23] MEDS: MIRTAZAPINE TAB 15 MG TAB PO SCH (21:29)
[2022-06-23] MEDS: SERTRALINE HCL 100 MG TABLET PO SCH (21:29)
[2022-06-23] MEDS: LANTUS PER UNIT CHARGE SQ SCH (21:38)
[2022-06-24 06:55] LABS: Hematocrit (blood only) 34.6 % (37.0-47.0); Mean Corpuscular Hemoglobin 32.7 pg (25.0-34.0); Mean Corpuscular Hgb Conc 31.8 g/dL (32.0-36.0); Mean Platelet Volume 11.8 fL (9.4-12.4); Platelet Count 49 K/uL (130-400); RDW Coefficient of Variation 15.5 % (11.5-14.5); RDW Standard Deviation 59.4 fL (36.4-46.3); Red Blood Count 3.36 M/uL (4.20-5.40); White Blood Count 3.28 K/ul (4.8-10.8)
[2022-06-24 07:20] LABS: BUN Creatinine Ratio 35.6 (10-20); Calcium 8.4 mg/dl (8.5-10.1); Creatinine Clr Calc Pharmacy 18.8 ml/min; Est GFR (African American) 19.5 ml/min; Est GFR (Non-African American) 16.8 ml/min; Magnesium 2.4 mg/dl (1.7-2.4); Phosphorus 4.9 mg/dl (2.5-4.9); Potassium 5.3 mmol/L (3.5-5.1)
[2022-06-24] MEDS: INSULIN ASPART PER UNIT CHARGE SC SCH ×4 (09:00→20:40)
[2022-06-24] MEDS: ASPIRIN 81 MG ECTAB PO SCH (09:03)
[2022-06-24] MEDS: FUROSEMIDE 20 MG TAB PO SCH (09:03)
[2022-06-24] MEDS: GABAPENTIN 100 MG CAP PO SCH (09:04)
[2022-06-24] MEDS: CHOLECALCIFEROL 1,000 UNITS 25 MCG TAB PO SCH (09:04)
[2022-06-24] MEDS: SACCHAROMYCES BOULARDII 250 MG CAP PO SCH (09:04)
[2022-06-24] MEDS: METOPROLOL SUCC 50MG EXT REL TAB PO SCH ×2 (09:06→20:34)
[2022-06-24] MEDS: cefTRIAXone SODIUM 1,000 MG in DEXTROSE 5% AD-VAN 50 ML IV SCH (09:07)
--- NOTE | 2022-06-24 10:49 | Hospitalist Progress Note ---
Date of Service June 24, 2022 Assessment & Plan (1) Acute on chronic systolic CHF (congestive heart failure): (2) Hypertension: (3) Ischemic cardiomyopathy: (4) AICD (automatic cardioverter/defibrillator) present: (5) Aortic stenosis: Plan: -Last echo was completed in March 2020, showing an LVEF of 20 to 24%, thinning of the septum, left ventricular cavity is mildly enlarged, moderate aortic stenosis is suspected, mild MR is present -Repeated Echo 06/19/2022 LV is severely dilated. LV systolic function is severely reduced. EF 20 to 25%. Diffuse hypokinesis to akinesis. The septum is thinned and akinetic. Aortic valve leaflet opening is moderately reduced. Moderate aortic valve stenosis is suspected, however, pseudo aortic valve stenosis must be considered in the setting of severely reduced LVEF. Trace aortic regurg. There is moderate to severe mitral regurg. There is moderate tricuspid regurg. Estimated systolic pulmonary pressure is 39 mmHg. -Initial troponin is 19 -> 23 -BNP 2117 -CXR appears w/fluid overloaded, trace pitting edema in bilateral lower legs, + crackles on lung exam. -Strict I/Os, daily weights, fluid restriction of 1500ml -Initial Lasix 40 mg IV administered in the ER -> on IV lasix 20 mg BID -> transitioned to PO lasix - on hold yesterday (06/22) d/t hypotension and elev. Cr -at home - p.o. furosemide which was recently reduced in half for 1 week timeframe and then resumed 40 mg x 1 dose 2 days ago. Typically uses lasix 3x per week. Previously was on this 5x per week several months ago. -Resume PO lasix 20 daily -received IVF overnight, having a headache this AM -Cardiology consulted with history of cardioverter/defibrillator and chf exacerbation -Nephrology consulted as they have been managing diuretic in the outpatient setting (6) Pancytopenia: Plan: - Overall persistent pancytopenia, established care w/ heme/onc - Dr. Caruso (reviewed his note from March 2022, should now follow up in 3 months (scheduled to see him as outpatient on 07/13/2022) - No spontaneous bleeding - Rash over lower legs from MDS ? (7) DM II (diabetes mellitus, type II), controlled: Plan: -Last A1c was 7.5 % in December 2021, repeat -ISS with Accu-Cheks -Home Lantus 15 units at bedtime (8) UTI (urinary tract infection): Plan: - U cultx - + Proteus mirabilis - given dose of cefepime in the ER - Continue with ceftriaxone - added probiotic with hx of diarrhea. Pt denies any urinary symptoms. - Memory issues likely exacerbated by acute infection, son provides hx of possible early onset dementia - monitor - mental status seems near/ at baseline (9) CKD (chronic kidney disease): Plan: - Cr. 2.09/BUN 74, appears to be near baseline - however now Cr up at 2.7 - Consulted nephrology, follows with Dr. Shahid as an outpatient - appreciate nephrology input DVT ppx - scds, no chemical ppx in the setting of thrombocytopenia CODE: Full code Dispo: From home, likely to remain in the hospital x 1-2 days Admission and Anticipated Discharge Date Admission Date: June 19, 2022 Subjective Pt seen in follow up of CHF exacerbation, uti, amb. dysfunction cardiology and nephrology consulted transitioned to PO lasix Overnight BP on lower side, IVF were given Pt says this AM she is having headache abx for uti Currently laying in bed, in no acute distress No chest pain palpitations or shortness of breath +weak and has been having difficulty w/ ambulation Poor historian Review of Systems Review of Systems: All systems reviewed & are unremarkable except as noted in Subjective Physical Exam Physical Exam: General: chronically ill appearing F, awake, alert, in NAD, on RA Head: Normocephalic, atraumatic ENT: PERRL, EOMI, mucous membranes moist, poor dentition Chest:CTAB, somewhat diminished, no wheezing Cardiac: Regular rate and rhythm, +systolic ejection murmur Abdominal: NABS x 4 quadrants, soft, nondistended, nontender to palpation, no rebound or guarding Extremities: no peripheral edema BLE, moves extremities Skin: skin is dry, warm Neuro: AAO x 3, has difficulty with recall of information and chronological events, speech is fluent, no peripheral sensory deficits, moves extremities Results & Data Results & Data Vital Signs (Past 12 Hours) Vital Signs Temp Pulse Pulse Resp BP Pulse Ox O2 Del Method 06/24/22 07:52 36.4 C L 68 18 105/63 91 Room Air 06/24/22 07:19 71 06/24/22 03:05 36.4 C L 73 18 122/53 L 93 Room Air 06/23/22 23:36 36.6 C 77 16 116/73 94 Room Air 06/23/22 23:35 76 Laboratory Results 06/24/22 06/24/22 06/24/22 Range/Units 07:28 06:18 06:18 WBC 3.28 L (4.8-10.8) K/ul RBC 3.36 L (4.20-5.40) M/uL Hgb 11.0 L (12.0-16.0) g/dl Hct 34.6 L (37.0-47.0) % MCV 103.0 H (80.0-100.0) fL MCH 32.7 (25.0-34.0) pg MCHC 31.8 L (32.0-36.0) g/dL RDW Std Deviation 59.4 H (36.4-46.3) fL RDW Coeff of Nevaeh 15.5 H (11.5-14.5) % Plt Count 49 L (130-400) K/uL MPV 11.8 (9.4-12.4) fL Sodium 136 (136-145) mmol/L Potassium 5.3 H (3.5-5.1) mmol/L Chloride 103 (98-107) mmol/L Carbon Dioxide 25 (21-32) mmol/L Anion Gap 8 (3-11) BUN 96 H (6-23) mg/dl Creatinine 2.70 H (0.6-1.2) mg/dl Est Cr Clr Drug Dosing 18.8 ml/min Est GFR ( Amer) 19.5 ml/min Est GFR (Non-Af Amer) 16.8 ml/min BUN/Creatinine Ratio 35.6 H (10-20) Glucose 193 H (70-99(Fasting)) mg/dl POC Glucose 184 H (70-99) mg/dl Calcium 8.4 L (8.5-10.1) mg/dl Phosphorus 4.9 (2.5-4.9) mg/dl Magnesium 2.4 (1.7-2.4) mg/dl Total Creatine Kinase 110 (26-192) U/L 06/23/22 06/23/22 06/23/22 Range/Units 20:07 16:18 13:05 WBC (4.8-10.8) K/ul RBC (4.20-5.40) M/uL Hgb (12.0-16.0) g/dl Hct (37.0-47.0) % MCV (80.0-100.0) fL MCH (25.0-34.0) pg MCHC (32.0-36.0) g/dL RDW Std Deviation (36.4-46.3) fL RDW Coeff of Nevaeh (11.5-14.5) % Plt Count (130-400) K/uL MPV (9.4-12.4) fL Sodium (136-145) mmol/L Potassium (3.5-5.1) mmol/L Chloride (98-107) mmol/L Carbon Dioxide (21-32) mmol/L Anion Gap (3-11) BUN (6-23) mg/dl Creatinine (0.6-1.2) mg/dl Est Cr Clr Drug Dosing ml/min Est GFR ( Amer) ml/min Est GFR (Non-Af Amer) ml/min BUN/Creatinine Ratio (10-20) Glucose (70-99(Fasting)) mg/dl POC Glucose 128 H 160 H 325 H* (70-99) mg/dl Calcium (8.5-10.1) mg/dl Phosphorus (2.5-4.9) mg/dl Magnesium (1.7-2.4) mg/dl Total Creatine Kinase (26-192) U/L 06/23/22 06/23/22 Range/Units 11:28 11:27 WBC (4.8-10.8) K/ul RBC (4.20-5.40) M/uL Hgb (12.0-16.0) g/dl Hct (37.0-47.0) % MCV (80.0-100.0) fL MCH (25.0-34.0) pg MCHC (32.0-36.0) g/dL RDW Std Deviation (36.4-46.3) fL RDW Coeff of Nevaeh (11.5-14.5) % Plt Count (130-400) K/uL MPV (9.4-12.4) fL Sodium (136-145) mmol/L Potassium (3.5-5.1) mmol/L Chloride (98-107) mmol/L Carbon Dioxide (21-32) mmol/L Anion Gap (3-11) BUN (6-23) mg/dl Creatinine (0.6-1.2) mg/dl Est Cr Clr Drug Dosing ml/min Est GFR ( Amer) ml/min Est GFR (Non-Af Amer) ml/min BUN/Creatinine Ratio (10-20) Glucose (70-99(Fasting)) mg/dl POC Glucose 406 H* 382 H* (70-99) mg/dl Calcium (8.5-10.1) mg/dl Phosphorus (2.5-4.9) mg/dl Magnesium (1.7-2.4) mg/dl Total Creatine Kinase (26-192) U/L Medications Administered Current Inpatient Medications Acetaminophen (Acetaminophen 325 Mg Tab) 650 mg PO Q4H PRN PRN Reason: Moderate Pain (Scale 4, 5, 6) Stop: 07/19/22 17:51 Last Admin: 06/22/22 20:33 Dose: 650 mg Aspirin (Aspirin 81 Mg Ectab) 81 mg PO [facility] Stop: 07/20/22 08:59 Last Admin: 06/24/22 09:03 Dose: 81 mg Dextrose (Dextrose 50% 50 Ml Syringe) 25 - 50 ml IV UD PRN; Protocol PRN Reason: Hypoglycemia Protocol Stop: 07/19/22 17:51 Diclofenac Sodium (Diclofenac Sod 1% Gel 100 Gm Tube) 2 gm EXT QID PRN; Protocol PRN Reason: L handpain Stop: 07/19/22 20:51 Last Admin: 06/20/22 19:43 Dose: 2 gm Furosemide (Furosemide 20 Mg Tab) 20 mg PO [facility] Stop: 07/23/22 11:59 Last Admin: 06/24/22 09:03 Dose: 20 mg Gabapentin (Gabapentin 100 Mg Cap) 100 mg PO [facility] Stop: 07/20/22 08:59 Last Admin: 06/24/22 09:04 Dose: 100 mg Glucagon (Glucagon For Inj 1 Mg Vial) 1 mg SQ UD PRN; Protocol PRN Reason: Hypoglycemia Protocol Stop: 07/19/22 17:51 Glucose (Glucose 10 Tab/Tube) 4 - 8 tab PO UD PRN; Protocol PRN Reason: Hypoglycemia Treatment Stop: 07/19/22 17:51 Glucose (Glucose 40% Gel 15 Gm Tube) 15 - 30 gm PO UD PRN; Protocol PRN Reason: Hypoglycemia Protocol Stop: 07/19/22 17:51 Ceftriaxone Sodium 1,000 mg/ (Dextrose) 50 mls @ 100 mls/hr IV Q24H [facility]; Protocol Stop: 06/25/22 08:59 Last Admin: 06/24/22 09:07 Dose: 100 mls/hr Insulin Aspart (Insulin Aspart Per Unit) 0 units SC ACHS [facility] Stop: 07/19/22 17:51 Last Admin: 06/24/22 09:00 Dose: 3 units Insulin Glargine (Lantus Per Unit Charge) 15 units SQ HS [facility] Stop: 07/19/22 20:59 Last Admin: 06/23/22 21:38 Dose: 15 units Metoprolol Succinate (Metoprolol Succ 50mg Ext Rel Tab) 50 mg PO BID [facility] Stop: 07/19/22 20:59 Last Admin: 06/24/22 09:06 Dose: 50 mg Mirtazapine (Mirtazapine Tab 15 Mg Tab) 7.5 mg PO [facility] Stop: 07/19/22 20:59 Last Admin: 06/23/22 21:29 Dose: 7.5 mg Miscellaneous (Carbohydrates For Hypoglycemia ) 15 - 30 gm PO UD PRN PRN Reason: Hypoglycemia Protocol Stop: 07/19/22 17:51 Last Admin: 06/20/22 16:15 Dose: 15 gm Ondansetron HCl (Ondansetron Inj 2 Mg/Ml 2 Ml Vial) 4 mg IV Q4H PRN PRN Reason: Nausea And Vomiting Stop: 07/19/22 17:51 Last Admin: 06/23/22 02:05 Dose: 4 mg Rosuvastatin Calcium (Rosuvastatin Calcium 20 Mg Tab) 20 mg PO QAM [facility] Stop: 07/20/22 08:59 Last Admin: 06/23/22 09:02 Dose: 20 mg Saccharomyces Boulardii (Saccharomyces Boulardii 250 Mg Cap) 250 mg PO DAILY [facility] Stop: 07/19/22 17:51 Last Admin: 06/24/22 09:04 Dose: 250 mg Sertraline HCl (Sertraline Hcl 100 Mg Tablet) 100 mg PO HS [facility] Stop: 07/19/22 20:59 Last Admin: 06/23/22 21:29 Dose: 100 mg Triamcinolone Acetonide (Triamcinolone Acet 0.1% Oint 15 Gm Tube) 1 appln EXT BID PRN PRN Reason: Itching Stop: 07/19/22 18:57 Vitamin D (Cholecalciferol 1,000 Units 25 Mcg Tab) 1,000 units PO DAILY [facility] Stop: 07/20/22 08:59 Last Admin: 06/24/22 09:04 Dose: 1,000 units
--- NOTE | 2022-06-24 12:08 | Nephrology Progress Note ---
Date of Service June 24, 2022 Assessment & Plan Admission and Anticipated Discharge Date Admission Date: June 19, 2022 Subjective Assessment & Plan (1) Acute on chronic systolic CHF (congestive heart failure): Plan: Will stop Lasix given issue with low BP overnight. She appears fairly euvolemic at this time but hard to asess her true fluid status Her recent creat baseline has been rising and is already around 2. So current creat is close to baseline. (2) Chronic renal disease, stage IV: Plan: baseline creatinine 2021 had been high ones > progressive renal dysfunction in 2022, did not respond to lower diuretic dosing unfortunately. baseline in 2022 more 1.9 creat; CKD 4 (3) UTI (urinary tract infection): Plan: -Proteus +; cont ceftriaxone per primary service chronic cystocele w/ frequent/recurrent UTI/+ urine cxs, s/p recent course of keflex late May/early June; once again with P mirabilis on urine culture (4) Cystocele: Plan: see above re UTI Subjective Very emotional and tearful. Had Low BP overnight and given some iv fluid. No SOb and no edema and is on RA with 99%. Physical Exam Constitutional: well developed, well nourished, + frail appearing and cooperative; no acute distress Eyes: EOM intact bilaterally ENMT: Ears: no external ear abnormality Nose: no external nose abnormality Mouth: + dry oral mucous membranes Neck: no nuchal rigidity Respiratory: normal respiratory effort Auscultation: + diminished lung sounds Cardiovascular: Rate/Rhythm: regular rate and regular rhythm Vessels: no JVD Extremities: no edema Gastrointestinal (Abdomen): Inspection/Auscultation: normal bowel sounds Percussion/Palpation: abdomen soft; abdomen nontender Musculoskeletal: Extremities: strength 5/5 throughout and + abnormal strength (needs assist to sit forward for lung exam) Skin: no rashes, warm and dry Psychiatric: Orientation: oriented to person and oriented to place Eye Contact: good eye contact Speech: normal rate/rhythm/volume of speech Thought Process: + perseveration Insight: + limited insight Judgment: + limited judgement Results & Data Vital Signs (Past 12 Hours) Vital Signs Temp Pulse Pulse Resp BP Pulse Ox O2 Del Method 06/24/22 11:38 36.8 C 78 18 100/57 L 99 Room Air 06/24/22 08:00 Room Air 06/24/22 07:52 36.4 C L 68 18 105/63 91 Room Air 06/24/22 07:19 71 06/24/22 03:05 36.4 C L 73 18 122/53 L 93 Room Air
[2022-06-24] MEDS ORDERED: POLYETHYLENE (MIRALAX) 17 GM PACK PO PRN (17:41)
[2022-06-24] MEDS: SENNA 8.6 MG TAB PO SCH (18:47)
[2022-06-24] MEDS: MIRTAZAPINE TAB 15 MG TAB PO SCH (20:33)
[2022-06-24] MEDS: SERTRALINE HCL 100 MG TABLET PO SCH (20:34)
[2022-06-24] MEDS: LANTUS PER UNIT CHARGE SQ SCH (22:10)
[2022-06-25 06:56] LABS: BUN Creatinine Ratio 35.8 (10-20); Calcium 8.5 mg/dl (8.5-10.1); Creatinine Clr Calc Pharmacy 19.3 ml/min; Est GFR (African American) 19.9 ml/min; Est GFR (Non-African American) 17.2 ml/min; Magnesium 2.5 mg/dl (1.7-2.4); Phosphorus 4.9 mg/dl (2.5-4.9); Potassium 5.1 mmol/L (3.5-5.1)
[2022-06-25] MEDS: ASPIRIN 81 MG ECTAB PO SCH (08:30)
[2022-06-25] MEDS: ROSUVASTATIN CALCIUM 20 MG TAB PO SCH (08:30)
[2022-06-25] MEDS: GABAPENTIN 100 MG CAP PO SCH (08:30)
[2022-06-25] MEDS: METOPROLOL SUCC 50MG EXT REL TAB PO SCH ×2 (08:30→20:31)
[2022-06-25] MEDS: SACCHAROMYCES BOULARDII 250 MG CAP PO SCH (08:30)
[2022-06-25] MEDS: SENNA 8.6 MG TAB PO SCH (08:30)
[2022-06-25] MEDS: CHOLECALCIFEROL 1,000 UNITS 25 MCG TAB PO SCH (08:31)
[2022-06-25] MEDS: INSULIN ASPART PER UNIT CHARGE SC SCH ×4 (08:34→20:31)
--- NOTE | 2022-06-25 09:22 | Hospitalist Progress Note ---
Date of Service June 25, 2022 Assessment & Plan (1) Acute on chronic systolic CHF (congestive heart failure): (2) Hypertension: (3) Ischemic cardiomyopathy: (4) AICD (automatic cardioverter/defibrillator) present: (5) Aortic stenosis: Plan: -Last echo was completed in March 2020, showing an LVEF of 20 to 24%, thinning of the septum, left ventricular cavity is mildly enlarged, moderate aortic stenosis is suspected, mild MR is present -Repeated Echo 06/19/2022 LV is severely dilated. LV systolic function is severely reduced. EF 20 to 25%. Diffuse hypokinesis to akinesis. The septum is thinned and akinetic. Aortic valve leaflet opening is moderately reduced. Moderate aortic valve stenosis is suspected, however, pseudo aortic valve stenosis must be considered in the setting of severely reduced LVEF. Trace aortic regurg. There is moderate to severe mitral regurg. There is moderate tricuspid regurg. Estimated systolic pulmonary pressure is 39 mmHg. -Initial troponin is 19 -> 23 -BNP 2117 -CXR appears w/fluid overloaded, trace pitting edema in bilateral lower legs, + crackles on lung exam. -Strict I/Os, daily weights, fluid restriction of 1500ml -Initial Lasix 40 mg IV administered in the ER -> on IV lasix 20 mg BID -> transitioned to PO lasix - on hold yesterday (06/22) d/t hypotension and elev. Cr -at home - p.o. furosemide which was recently reduced in half for 1 week timeframe and then resumed 40 mg x 1 dose 2 days ago. Typically uses lasix 3x per week. Previously was on this 5x per week several months ago. -Resumed PO lasix 20 daily - now on hold, as low BP at night Today she is feeling much better, BP improved, Cr elevated but stable -Cardiology consulted with history of cardioverter/defibrillator and chf exacerbation -Nephrology consulted as they have been managing diuretic in the outpatient setting (6) Pancytopenia: Plan: - Overall persistent pancytopenia, established care w/ heme/onc - Dr. Caruso (reviewed his note from March 2022, should now follow up in 3 months (scheduled to see him as outpatient on 07/13/2022) - No spontaneous bleeding - Rash over lower legs from MDS ? (7) DM II (diabetes mellitus, type II), controlled: Plan: -Last A1c was 7.5 % in December 2021, repeat -ISS with Accu-Cheks -Home Lantus 15 units at bedtime (8) UTI (urinary tract infection): Plan: - U cultx - + Proteus mirabilis - given dose of cefepime in the ER - Continued with ceftriaxone - added probiotic with hx of diarrhea. Pt denies any urinary symptoms. - Memory issues likely exacerbated by acute infection, son provides hx of possible early onset dementia - monitor - mental status seems near/ at baseline (9) CKD (chronic kidney disease): Plan: - Cr. 2.09/BUN 74, appears to be near baseline - however now Cr up at 2.7 - Consulted nephrology, follows with Dr. Shahid as an outpatient - appreciate nephrology input DVT ppx - scds, no chemical ppx in the setting of thrombocytopenia CODE: Full code Dispo: From home, likely to remain in the hospital x 1-2 days Admission and Anticipated Discharge Date Admission Date: June 19, 2022 Subjective Pt seen in follow up of CHF exacerbation, uti, amb. dysfunction cardiology and nephrology consulted transitioned to PO lasix - now on hold as lower BP at night and needed IVF Today she is feeling quite well, sitting up in the chair in NAD, breathing comfortably on room air, saturating 98% Reports feeling stronger No chest pain palpitations or shortness of breath No fever/chills + constipation Review of Systems Review of Systems: All systems reviewed & are unremarkable except as noted in Subjective Physical Exam Physical Exam: General: chronically ill appearing F, awake, alert, in NAD, on RA Head: Normocephalic, atraumatic ENT: PERRL, EOMI, mucous membranes moist, poor dentition Chest:CTAB, somewhat diminished, no wheezing Cardiac: Regular rate and rhythm, +systolic ejection murmur Abdominal: NABS x 4 quadrants, soft, nondistended, nontender to palpation, no rebound or guarding Extremities: no peripheral edema BLE, moves extremities Skin: skin is dry, warm Neuro: AAO x 3, has difficulty with recall of information and chronological events, speech is fluent, no peripheral sensory deficits, moves extremities Results & Data Results & Data Vital Signs (Past 12 Hours) Vital Signs Temp Pulse Pulse Resp BP Pulse Ox O2 Del Method 06/25/22 07:21 36.4 C L 69 18 117/71 99 Room Air 06/25/22 03:22 36.5 C 75 18 113/75 99 Room Air 06/25/22 00:05 79 06/24/22 23:09 Room Air 06/24/22 22:58 36.2 C L 78 18 104/62 94 Room Air Laboratory Results 06/25/22 06/25/22 06/24/22 Range/Units 07:49 06:08 19:54 Sodium 140 (136-145) mmol/L Potassium 5.1 (3.5-5.1) mmol/L Chloride 106 (98-107) mmol/L Carbon Dioxide 27 (21-32) mmol/L Anion Gap 7 (3-11) BUN 95 H (6-23) mg/dl Creatinine 2.65 H (0.6-1.2) mg/dl Est Cr Clr Drug Dosing 19.3 ml/min Est GFR ( Amer) 19.9 ml/min Est GFR (Non-Af Amer) 17.2 ml/min BUN/Creatinine Ratio 35.8 H (10-20) Glucose 181 H (70-99(Fasting)) mg/dl POC Glucose 190 H 91 (70-99) mg/dl Calcium 8.5 (8.5-10.1) mg/dl Phosphorus 4.9 (2.5-4.9) mg/dl Magnesium 2.5 H (1.7-2.4) mg/dl 06/24/22 06/24/22 Range/Units 16:33 11:32 Sodium (136-145) mmol/L Potassium (3.5-5.1) mmol/L Chloride (98-107) mmol/L Carbon Dioxide (21-32) mmol/L Anion Gap (3-11) BUN (6-23) mg/dl Creatinine (0.6-1.2) mg/dl Est Cr Clr Drug Dosing ml/min Est GFR ( Amer) ml/min Est GFR (Non-Af Amer) ml/min BUN/Creatinine Ratio (10-20) Glucose (70-99(Fasting)) mg/dl POC Glucose 140 H 242 H (70-99) mg/dl Calcium (8.5-10.1) mg/dl Phosphorus (2.5-4.9) mg/dl Magnesium (1.7-2.4) mg/dl Medications Administered Current Inpatient Medications Acetaminophen (Acetaminophen 325 Mg Tab) 650 mg PO Q4H PRN PRN Reason: Moderate Pain (Scale 4, 5, 6) Stop: 07/19/22 17:51 Last Admin: 06/22/22 20:33 Dose: 650 mg Aspirin (Aspirin 81 Mg Ectab) 81 mg PO QAM [facility] Stop: 07/20/22 08:59 Last Admin: 06/25/22 08:30 Dose: 81 mg Dextrose (Dextrose 50% 50 Ml Syringe) 25 - 50 ml IV UD PRN; Protocol PRN Reason: Hypoglycemia Protocol Stop: 07/19/22 17:51 Diclofenac Sodium (Diclofenac Sod 1% Gel 100 Gm Tube) 2 gm EXT QID PRN; Protocol PRN Reason: L handpain Stop: 07/19/22 20:51 Last Admin: 06/20/22 19:43 Dose: 2 gm Gabapentin (Gabapentin 100 Mg Cap) 100 mg PO [facility] Stop: 07/20/22 08:59 Last Admin: 06/25/22 08:30 Dose: 100 mg Glucagon (Glucagon For Inj 1 Mg Vial) 1 mg SQ UD PRN; Protocol PRN Reason: Hypoglycemia Protocol Stop: 07/19/22 17:51 Glucose (Glucose 10 Tab/Tube) 4 - 8 tab PO UD PRN; Protocol PRN Reason: Hypoglycemia Treatment Stop: 07/19/22 17:51 Glucose (Glucose 40% Gel 15 Gm Tube) 15 - 30 gm PO UD PRN; Protocol PRN Reason: Hypoglycemia Protocol Stop: 07/19/22 17:51 Insulin Aspart (Insulin Aspart Per Unit) 0 units SC [facility] Stop: 07/19/22 17:51 Last Admin: 06/25/22 08:34 Dose: 5 units Insulin Glargine (Lantus Per Unit Charge) 15 units SQ [facility] Stop: 07/19/22 20:59 Last Admin: 06/24/22 22:10 Dose: Not Given Metoprolol Succinate (Metoprolol Succ 50mg Ext Rel Tab) 50 mg PO BID [facility] Stop: 07/19/22 20:59 Last Admin: 06/25/22 08:30 Dose: 50 mg Mirtazapine (Mirtazapine Tab 15 Mg Tab) 7.5 mg PO [facility] Stop: 07/19/22 20:59 Last Admin: 06/24/22 20:33 Dose: 7.5 mg Miscellaneous (Carbohydrates For Hypoglycemia ) 15 - 30 gm PO UD PRN PRN Reason: Hypoglycemia Protocol Stop: 07/19/22 17:51 Last Admin: 06/20/22 16:15 Dose: 15 gm Ondansetron HCl (Ondansetron Inj 2 Mg/Ml 2 Ml Vial) 4 mg IV Q4H PRN PRN Reason: Nausea And Vomiting Stop: 07/19/22 17:51 Last Admin: 06/23/22 02:05 Dose: 4 mg Polyethylene Glycol (Polyethylene (Miralax) 17 Gm Pack) 17 gm PO DAILY PRN PRN Reason: Constipation Stop: 07/24/22 17:40 Rosuvastatin Calcium (Rosuvastatin Calcium 20 Mg Tab) 20 mg PO QAM [facility] Stop: 07/20/22 08:59 Last Admin: 06/25/22 08:30 Dose: 20 mg Saccharomyces Boulardii (Saccharomyces Boulardii 250 Mg Cap) 250 mg PO DAILY [facility] Stop: 07/19/22 17:51 Last Admin: 06/25/22 08:30 Dose: 250 mg Sennosides (Senna 8.6 Mg Tab) 8.6 mg PO QAM [facility] Stop: 07/24/22 17:44 Last Admin: 06/25/22 08:30 Dose: 8.6 mg Sertraline HCl (Sertraline Hcl 100 Mg Tablet) 100 mg PO HS [facility] Stop: 07/19/22 20:59 Last Admin: 06/24/22 20:34 Dose: 100 mg Triamcinolone Acetonide (Triamcinolone Acet 0.1% Oint 15 Gm Tube) 1 appln EXT BID PRN PRN Reason: Itching Stop: 07/19/22 18:57 Vitamin D (Cholecalciferol 1,000 Units 25 Mcg Tab) 1,000 units PO DAILY [facility] Stop: 07/20/22 08:59 Last Admin: 06/25/22 08:31 Dose: 1,000 units
--- NOTE | 2022-06-25 10:13 | Nephrology Progress Note ---
Date of Service June 25, 2022 Assessment & Plan Admission and Anticipated Discharge Date Admission Date: June 19, 2022 Subjective [facility], [id number] Nephrology Progress Note Signed Patient:MONET FREY Admit Date:06/19/22 MR#:[id number] Att Phy:Ambrose Ojeda MD Acct ID:[id number] Neeta Phy:Melissa Tovar MD Date:1950 Fam Phy: Age:72 Location:2N Sex:F Room/Bed:N286-1 cc: ~ *NOTICE TO RECEIVING [employer]/AGENCY This information is strictly Confidential and protected under [place] law. [place] law prohibits you from making any further disclosure of this information unless further disclosure is expressly permitted by the written consent of the person to whom it pertains or is authorized by law. A general authorization for the release of medical or other information is not sufficient for this purpose. Hospital accepts no responsibility if the information is made available to any other person, INCLUD ING THE PATIENT. Date of Service June 24, 2022 Assessment & Plan Admission and Anticipated Discharge Date Admission Date: June 19, 2022 Subjective Assessment & Plan (1) Acute on chronic systolic CHF (congestive heart failure): Plan: had to stop lasix because of Low BP where she needed iv fluid overnight. She appears fairly euvolemic at this time but hard to assess her true fluid status Her recent creat baseline has been rising and is already around 2. So current creat is close to baseline. Would do CXR to compare with CXR from 06/19. BP not low during daytime but can drop at night. (2) Chronic renal disease, stage IV: Plan: baseline creatinine 2021 had been high ones > progressive renal dysfunction in 2022, did not respond to lower diuretic dosing unfortunately. baseline in 2022 more 1.9 creat; CKD 4 (3) UTI (urinary tract infection): Plan: -Proteus +; cont ceftriaxone per primary service chronic cystocele w/ frequent/recurrent UTI/+ urine cxs, s/p recent course of keflex late May/early June; once again with P mirabilis on urine culture (4) Cystocele: Plan: see above re UTI Subjective Calmer today and was sleeping.No Sob and no edema and is on RA with 99%. Physical Exam Constitutional: well developed, well nourished, + frail appearing and cooperative; no acute distress Eyes: EOM intact bilaterally ENMT: Ears: no external ear abnormality Nose: no external nose abnormality Mouth: + dry oral mucous membranes Neck: no nuchal rigidity Respiratory: normal respiratory effort Auscultation: + diminished lung sounds and Some basal crackles Cardiovascular: Rate/Rhythm: regular rate and regular rhythm Vessels: no JVD Extremities: no edema Gastrointestinal (Abdomen): Inspection/Auscultation: normal bowel sounds Percussion/Palpation: abdomen soft; abdomen nontender Musculoskeletal: Extremities: strength 5/5 throughout and + abnormal strength (needs assist to sit forward for lung exam) Skin: no rashes, warm and dry Psychiatric: Orientation: oriented to person and oriented to place Eye Contact: good eye contact Speech: normal rate/rhythm/volume of speech Thought Process: + perseveration Insight: + limited insight Judgment: + limited judgement Results & Data Vital Signs (Past 12 Hours) Vital Signs Temp Pulse Pulse Resp BP Pulse Ox O2 Del Method 06/25/22 07:21 36.4 C L 69 18 117/71 99 Room Air 06/25/22 03:22 36.5 C 75 18 113/75 99 Room Air 06/25/22 00:05 79 06/24/22 23:09 Room Air 06/24/22 22:58 36.2 C L 78 18 104/62 94 Room Air
--- NOTE | 2022-06-25 11:23 | XRay Report ---
XR chest 1V portable CLINICAL HISTORY: f/u CHF TECHNIQUE: Single frontal radiograph of the chest was obtained. Comparison: Comparison is made to chest radiograph 06/19/2022 FINDINGS: Pacemaker defibrillator is seen. Cardiomegaly is noted. The aortic arch is calcified. Previously note d pulmonary vascular prominence is somewhat improved from prior exam. Small bilateral pleural effusio ns again noted. IMPRESSION: 1. Cardiomegaly with significant improvement in previously noted pulmonary vascular congestion. 2. Small bilateral pleural effusions. ACT 112: Negative or not required by law. Electronically signed by: Gerber Ramos M.D. 06/25/2022 11:21 AM
[2022-06-25] MEDS ORDERED: GLYCERIN ADULT 12 SUPP/BOX SUPP PR ONE (14:23)
[2022-06-25] MEDS: POLYETHYLENE (MIRALAX) 17 GM PACK PO SCH (16:42)
[2022-06-25] MEDS ORDERED: cefUROXime axetil 250 MG TABLET PO SCH (18:00)
[2022-06-25] MEDS: MIRTAZAPINE TAB 15 MG TAB PO SCH (20:31)
[2022-06-25] MEDS: SERTRALINE HCL 100 MG TABLET PO SCH (20:32)
[2022-06-25] MEDS ORDERED: LANTUS PER UNIT CHARGE SQ SCH (21:00)
[2022-06-26] MEDS: ACETAMINOPHEN 325 MG TAB PO PRN (03:29)
[2022-06-26 07:47] LABS: Hematocrit (blood only) 33.3 % (37.0-47.0); Hemoglobin 10.6 g/dl (12.0-16.0); Mean Corpuscular Hemoglobin 32.9 pg (25.0-34.0); Mean Corpuscular Hgb Conc 31.8 g/dL (32.0-36.0); Mean Corpuscular Volume 103.4 fL (80.0-100.0); Mean Platelet Volume 11.7 fL (9.4-12.4); Platelet Count 40 K/uL (130-400); RDW Coefficient of Variation 15.8 % (11.5-14.5); RDW Standard Deviation 59.7 fL (36.4-46.3); Red Blood Count 3.22 M/uL (4.20-5.40)
[2022-06-26 08:04] LABS: Calcium 8.5 mg/dl (8.5-10.1); Creatinine Clr Calc Pharmacy 22.5 ml/min; Est GFR (African American) 24.3 ml/min; Magnesium 2.5 mg/dl (1.7-2.4); Potassium 4.8 mmol/L (3.5-5.1)
[2022-06-26] MEDS: INSULIN ASPART PER UNIT CHARGE SC SCH ×2 (08:57→12:05)
[2022-06-26] MEDS: ASPIRIN 81 MG ECTAB PO SCH (09:03)
[2022-06-26] MEDS: ROSUVASTATIN CALCIUM 20 MG TAB PO SCH (09:03)
[2022-06-26] MEDS: POLYETHYLENE (MIRALAX) 17 GM PACK PO SCH (09:03)
[2022-06-26] MEDS: CHOLECALCIFEROL 1,000 UNITS 25 MCG TAB PO SCH (09:03)
[2022-06-26] MEDS: SACCHAROMYCES BOULARDII 250 MG CAP PO SCH (09:04)
[2022-06-26] MEDS: METOPROLOL SUCC 50MG EXT REL TAB PO SCH (09:04)
[2022-06-26] MEDS: SENNA 8.6 MG TAB PO SCH (09:04)
[2022-06-26] MEDS: GABAPENTIN 100 MG CAP PO SCH (09:04)
--- NOTE | 2022-06-26 10:13 | Discharge Summary ---
Date of Service June 26, 2022 Admission HPI Per Admitting Provider This is a 72-year-old female with PMHx of chronic systolic CHF, history of AR, ischemic cardiomyopathy, AICD, aortic stenosis, HTN, DM type II, CKD stage IV, anemia of chronic renal failure, pancytopenia who presents to the hospital with acute onset of weakness. She reports "Today is my birthday, but it is not a great day." This morning when she work up, she felt like she could just not move her legs. Diuretic was cut in half recently due to being dehydrated, but cannot say exactly when this was changed or what the doses were. She states her son, Yousuf, who lives in the apartment near her manages all her medications. She does not know any of her other medications. Pt denies any issues with breathing or chest pain. Pt notes dry weight is 131, and that he legs were much more swollen yesterday than they are today. Discussion held with her son Andrea over the phone. He notes that she "fell", on Saturday, where she sat down on her butt, due to some weakness after having dinner out at [employer] for her birthday celebration. Son notes she weighed 133 yesterday. Previously she has weighed as low as 120lbs, and was placed on Remeron for appetite stimulant for the past 3-4 months. She uses a protein shake daily. Pt was working with Dr. Syed and due to appearing like she looked dry, and Lasix was reduced to 20 mg every other day for about a week. Due to increased swelling in her lower legs, her son restarted the normal dosing about 2 days ago. Son thinks she was having difficulty with walking due to shortness of breath as well as weakness. Son reports that Radha fabricates stories and is notes that she exaggerates symptoms at times, becoming more forgetful about what she tells people, and thinks that she has fallen but she truthfully has not as they have a security camera/monitor for her apartment to know if anything happens to her. He reports that she has never formally been diagnosed with dementia however is concerned this may be the beginning of such. She does not wear oxygen at baseline, but does have a cpap at night. Son reports also that if we are to start an antibiotic for possible UTI, she had diarrhea for a month after being on an antibiotic previously. To his knowledge she did not have c. diff infection ever. Admission Exam Per Admitting Provider General: awake, alert, no apparent distress Head: Normocephalic, atraumatic, Thinning hair ENT: PERRL, EOMI, no pharyngeal exudate, mucous membranes moist Chest: On room air, O2 sats are 88% with talking, + Crackles throughout, no r ales. Cardiac: Regular rate and rhythm, +systolic ejection murmur, no JVD, normal peripheral pulses, good capillary refill Abdominal: NABS x 4 quadrants, soft, nondistended, nontender to palpation, no rebound or guarding Extremities: +trace peripheral edema BLE, no bright red erythema, calfs nontender to palpation Skin: chronic dark red nonblanching discoloration to feet, finer rash on extremities, skin is dry Psych: Anxious mood and affect Neuro: AAO x 3, has difficulty with recall of information and chronological events, strength 3/5 bilateral lower extremities, no gross motor deficits, spe ech is clear, no peripheral sensory deficits Principal Diagnosis CHF exacerbation UTI weakness, ambulatory dysfunction Discharge Exam General: chronically ill appearing F, awake, alert, in NAD, on RA Head: Normocephalic, atraumatic ENT: PERRL, EOMI, mucous membranes moist, poor dentition Chest:CTAB, somewhat diminished, no wheezing Cardiac: Regular rate and rhythm, +systolic ejection murmur Abdominal: NABS x 4 quadrants, soft, nondistended, nontender to palpation, no rebound or guarding Extremities: no peripheral edema BLE, moves extremities Skin: skin is dry, warm Neuro: AAO x 3, has difficulty with recall of information and chronological events, speech is fluent, no peripheral sensory deficits, moves extremities Discharge Data Allergies Allergy/AdvReac Type Severity Reaction Status Date / Time lisinopril AdvReac Intermediate Cough Verified 06/19/22 15:41 Consultations 06/19/22 15:29 ED Decision to Admit Stat 06/19/22 17:01 Consult Cardiology Routine Consult Nephrology Routine Ordered Studies 06/19/22 12:31 CT head/brain wo con Stat FINDINGS: Brain parenchyma: There is age-related involutional change noting moderate subcortical and periventricular microangiopathic disease. There is no hemorrhage, mass effect, or evidence of acute territorial ischemia by CT criteria. Espinoza-white matter differentiation is preserved. No extra-axial fluid collection is seen. Ventricles, sulci, cisterns: Prominent secondary to involutional change. Intracranial vasculature: There is atherosclerotic calcification of the cavernous carotid and vertebral arteries. Calvarium: Unremarkable. Sinuses and mastoids: The visualized paranasal sinuses are clear. The mastoid air cells are well pneumatized. Orbits: The bony orbits are grossly intact. There are bilateral ocular lens implants. IMPRESSION: There is no hemorrhage, mass effect, or evidence of acute territorial ischemia by CT criteria. Hospital Course (1) Acute on chronic systolic CHF (congestive heart failure): (2) Hypertension: (3) Ischemic cardiomyopathy: (4) AICD (automatic cardioverter/defibrillator) present: (5) Aortic stenosis: -Last echo was completed in March 2020, showing an LVEF of 20 to 24%, thinning of the septum, left ventricular cavity is mildly enlarged, moderate aortic stenosis is suspected, mild MR is present -Repeated Echo 06/19/2022 LV is severely dilated. LV systolic function is severely reduced. EF 20 to 25%. Diffuse hypokinesis to akinesis. The septum is thinned and akinetic. Aortic valve leaflet opening is moderately reduced. Moderate aortic valve stenosis is suspected, however, pseudo aortic valve stenosis must be considered in the setting of severely reduced LVEF. Trace aortic regurg. There is moderate to severe mitral regurg. There is moderate tricuspid regurg. Estimated systolic pulmonary pressure is 39 mmHg. -Initial troponin is 19 -> 23 -BNP 2117 -CXR appears w/fluid overloaded, trace pitting edema in bilateral lower legs, + crackles on lung exam. -Strict I/Os, daily weights, fluid restriction of 1500ml -Initial Lasix 40 mg IV administered in the ER -> on IV lasix 20 mg BID -> transitioned to PO lasix - on hold yesterday (06/22) d/t hypotension and elev. Cr -at home - p.o. furosemide which was recently reduced in half for 1 week timeframe and then resumed 40 mg x 1 dose 2 days ago. Typically uses lasix 3x per week. Previously was on this 5x per week several months ago. -Cardiology consulted with history of cardioverter/defibrillator and chf exacerbation -Nephrology consulted as they have been managing diuretic in the outpatient setting 06/26 - Resumed PO lasix 20mg 3-times a week (M W F) - discussed with Nephrology will DC on this dose. This was also discussed w/ pt's son over the phone - son updated. (6) Pancytopenia: - Overall persistent pancytopenia, established care w/ heme/onc - Dr. Caruso (reviewed his note from March 2022, should now follow up in 3 months (scheduled to see him as outpatient on 07/13/2022) - No spontaneous bleeding - Rash over lower legs from MDS ? (7) DM II (diabetes mellitus, type II), controlled: -Last A1c was 7.5 % in December 2021, repeat -ISS with Accu-Cheks -Home Lantus 15 units at bedtime (8) UTI (urinary tract infection): - U cultx - + Proteus mirabilis - given dose of cefepime in the ER - Continued with ceftriaxone while inpt - Memory issues likely exacerbated by acute infection, son provides hx of possible early onset dementia - monitor - mental status seems back at baseline (9) CKD (chronic kidney disease): - Cr. 2.09/BUN 74, appears to be near baseline - however now Cr up at 2.7 - Consulted nephrology, follows with Dr. Shahid as an outpatient - appreciate nephrology input Total Time Total Time Spent Total Time Spent (In Minutes): 40 Discharge Plan Discharge Items Patient Disposition: Home - Self-Care Reason For Visit: CHF EXACERBATION Discharge Diagnosis: CHF exacerbation UTI weakness, ambulatory dysfunction Condition on Discharge: Fair Activity: Per Instructions section Non-emergency contact: Primary Care Provider, Specialist and Truck Repair Supervisor Call non-emergency contact if: you have any medication questions and your symptoms worsen Follow-up/Referrals: Blayne Caruso MD [Surgeon] - (Date & Time 07/13/2022 10:45 AM Provider Blayne Caruso MD Department Hematology/Oncology [facility] ) Melissa Tovar MD [Primary Care Provider] - (Date & Time 06/29/2022 12:00 PM Provider Melissa Martinez MD Department Family Medicine [facility] ) Diet: Heart Healthy Fluids: 1500ml (6 cups) Addtl Attending Provider Instructions: Follow up with the primary care provider, the appointment was scheduled for you for 06/29/2022. You may benefit from seeing a urologist, given the frequent UTIs. You are also scheduled with hematology/oncology, Dr. Caruso, on 07/13/2022, given your low blood cell counts. Continue taking Lasix 20 mg 3-times a week (). Addtl Photographer Provider Instructions: Call your Primary Care doctor if any of the following symptoms or problems start or get worse: * Shortness of breath or difficulty breathing * Wake up at night short of breath * Chest pain * Cough * Swelling of your hands, feet, or legs * More fatigued or tired with your normal activity * Palpitations - sudden fast heart beats WEIGHT * Weigh yourself every morning after using the bathroom. * Use the same scale. * Wear the same amount of clothing. * Write your weight down on a chart. * Call your Primary Care doctor if you gain more than 2-3 pounds in 1-2 days. MEDICATIONS * Use this discharge instruction sheet for medication instructions. * Take your medications at the time your doctor ordered. * Do not skip a dose of your medicines. * If you miss a dose of medicine, take it as soon as possible, but DO NOT DOUBLE A DOSE. * Read your medicine information when you get home. * Know all of the side effects of your medicine. If in doubt, ask your pharmacist * Call your Primary Care doctor's office if you have any side effects. * Be sure all of your doctors know what medicine and herbs you take (including cold, flu, and herbal medicine). Take the following with you to your follow-up doctor appointments: * Weight Chart * Medication List * List of questions Do not drink excessive alcohol, beer or wine. Pending Studies at Discharge: Yes Studies:: Final blood culture results Stand-Alone Forms: [facility] [employer], Smoking Cessation Medications and DC Order Prescriptions: Continued sertraline 100 mg Tablet 100 mg PO HS insulin glargine [Basaglar KwikPen U-100 Insulin] 100 unit/mL (3 mL) Insulin Pen 15 unit SUBCUT HS gabapentin 100 mg capsule 100 mg PO QAM aspirin [Ecotrin Low Strength] 81 mg Tablet,Delayed Release (Dr/Ec) 81 mg PO QAM Qty: 30 0RF nitroglycerin [Nitrostat] 0.4 mg Tablet, Sublingual 0.4 mg sublingual UD PRN (Reason: chest pain) Qty: 5 0RF acetaminophen 325 mg Tablet 650 mg PO Q4H PRN (Reason: Fever/pain) metoprolol succinate 50 mg tablet extended release 24 hr 50 mg PO BID Victoza 3-Jaime 0.6 mg/0.1 mL (18 mg/3 mL) pen injector 1.8 mg SUBCUT HS furosemide 40 mg tablet 20 mg PO 3XWK Rx Instructions: PER FAMILY "GAVE 40 MG ON SATURDAY". PER GMG 20 MG 3XWK, take in morning of saturday,saturday,fridays rosuvastatin [Crestor] 20 mg Tablet 20 mg PO QAM Qty: 30 0RF ketoconazole 2 % shampoo 1 applic TOPICAL 3XWK mirtazapine 15 mg tablet 7.5 mg PO HS cholecalciferol (vitamin D3) [Vitamin D3] 25 mcg (1,000 unit) Tablet 25 mcg PO DAILY Discharge Orders: Discharge Order- CHF (Routine); Ordered 06/26/22 Ordered By: Ambrose Montesinos/Other Patient Handouts: Managing Type 2 Diabetes Admission Data Admit Date/Time: 06/19/22 15:42 Attending Provider: Ambrose Ojeda Admit Provider: Alvaro Hand Primary Care Provider: Melissa Tovar Other Providers: Jeramie Leiva [facility] ; Alvaro Hand ; Dusty Hernandez ; Nancy Shahid
[2022-06-26] MEDS ORDERED: cefUROXime axetil 250 MG TABLET PO SCH (10:30)
== END 2022-06-26 12:07 | disposition home health service (06) | DRG 291 ==
LOC: ED 11:52 → 2S 15:42 → SUATTDRO 15:42 → 2S 17:20 → 2N 06-23 02:27

== ENCOUNTER 2023-12-30 03:09 | Inpatient (IN) ==
--- OUTSIDE RECORDS SUMMARY | 2023-12-30 03:15 | External Medical Summary | Summary of Care ---
Author Name Unknown Organization [facility] Address [address] [facility] [place] [address] Phone [phone] Care Team Providers Care News Reel Cameraman Name Role Phone Melissa Hand MD Primary Care Prov ider Encounter Details Date Type Department Care Team (Late st Contact Info) Description 12/14/2023 Telephone Family Practice [facility] [address] [place] [phone] Yokasta Rust CRNP [address] [place] [phone] Allergies Active Allergy Reactions Criticality Noted Date Comments Lisinopril Cough Low 04/25/2020 High potassium documented as of this encounter (statuses as of 12/14/2023) Medications Medication Sig Dispensed Refills Start Date End Date Status Acetaminophen 325 MG Oral Tablet Take 2 Tablets by mouth every 4 hours as needed. 100 Tab 02/16/2019 Active nitroglycerin (NITROSTAT) 0.[address] 1 Tab under the tongue as needed for Pain, Chest. May repeat 3 times. If chest pain continues, call 911. 25 Tab 02/26/2019 Active Lancets MISC Test 3 times daily E11.9 100 Each 5 11/12/2019 Active OneTouch Delica Lancets 33G MISCIndications:DM (diabetes mellitus), type 2, uncontrolled, with renal complications Test 3 times daily. E11.9 100 Each 11/14/2019 Active Vitamin D3 25 MCG (1000 UT) Oral Tablet (Vitamin D3) Take 1 Tablet by mouth in the morning. 09/22/2020 Active Cranberry 50 MG Oral Tablet Chewable Once per daily 08/08/2022 Activ e Ketoconazole 2 % External CreamIndications:Puma orrheic dermatitis Apply 2x daily to rash on face until resolved, then when flaring 60 g 2 08/22/2022 Active BD Pen Needle Raquel U/F 32G X 4 MM (Insulin Pen Needle) use with insulin and victoza--2 needles per day 200 Each 3 01/06/2023 Active Basaglar KwikPen 100 UNIT/ML Subcutaneous Solution Pen-injector (Insulin Glargine Solostar) inject 15 units under the skin at bedtime 15 mL 1 04/23/2023 Active Trulicity 1.5 MG/0.5ML Subcutaneous Solution Pen-injector (Dulaglutide)Indicat ions:Type 2 diabetes mellitus with stage 4 chronic kidney disease, with long-term current use of insulin (HCC) Inject 1.5 mg under the skin once a week. 2 mL 5 05/10/2023 Active Additional Information Patient not taking.Reported on 10/25/2023 Trulicity 0.75 MG/0.5ML Subcutaneous Solution Pen-injector (Dulaglutide)Indicat ions:Type 2 diabetes mellitus with stage 4 chronic kidney disease, with long-term current use of insulin (HCC) Inject 0.75 mg under the skin once a week. 2 mL 11 05/15/2023 Active Aspirin Low Dose 81 MG Oral Tablet Delayed Release (aspirin enteric coated) TAKE ONE TABLET BY MOUTH EVERY DAY 90 Tablet 3 05/18/2023 Active Mirtazapine 15 MG Oral Tablet (Remeron)Indications :Recurrent major depressive disorder, in full remission (HCC),Poor appetite TAKE ONE TABLET BY MOUTH AT BEDTIME 30 Tablet 5 05/22/2023 Active Sertraline HCl 100 MG Oral Tablet (Zoloft)Indications: Recurrent major depressive disorder, in full remission (HCC) Take 1.5 Tablets by mouth at bedtime. 135 Tablet 1 06/22/2023 Active ALPRAZolam 0.25 MG Oral Tablet (Xanax)Indications:I rritability Take 1 Tablet by mouth daily as needed for Anxiety or Agitation. 4 Tablet 06/22/2023 Active Isosorbide Dinitrate 10 MG Oral Tablet (Isordil) TAKE ONE TABLET BY MOUTH TWICE DAILY AT 0700 AND 1200 FOR 30 DAYS 60 Tablet 5 06/24/2023 Active Rosuvastatin Calcium 10 MG Oral Tablet (Crestor) Take 1 Tablet by mouth in the morning. 90 Tablet 1 07/29/2023 Active OneTouch Verio In Vitro Strip (Glucose Blood)Indications:Ty pe 2 diabetes mellitus with stage 4 chronic kidney disease, with long-term current use of insulin (HCC) test blood sugar 3 times daily dx e11.22 300 Strip 1 07/31/2023 Active Gabapentin 100 MG Oral Capsule (Neurontin)Indicatio ns:Coccyx pain,Sacral back pain TAKE ONE CAPSULE BY MOUTH EVERY DAY 90 Capsule 10/07/2023 Active Torsemide 10 MG Oral Tablet (Demadex)Indications :Anemia of chronic renal failure, stage 4 (severe) ([facility]) Take 2 Tablets by mouth in the morning. 90 Tablet 3 10/25/2023 Active Metoprolol Succinate ER 50 MG Oral Tablet Extended Release 24 Hour (toPROL XL)Indications:Chron ic systolic congestive heart failure (HCC) TAKE ONE TABLET BY MOUTH IN THE MORNING AND BEFORE BEDTIME 180 Tablet 1 10/27/2023 Active Ketoconazole 2 % External Shampoo (Nizoral)Indications :Seborrheic dermatitis massage into scalp and rinse out after five to ten minutes, do 3 times weekly then apply clindamycin gel to open sores if needed 360 mL 2 11/04/2023 Active Sulfamethoxazole-Tri methoprim 800-160 MG Oral Tablet (Bactrim DS) Take 1 Tablet by mouth in the morning and 1 Tablet before bedtime. Use as directed.. 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 04/13/2019 Type 2 diabetes mellitus wit h stage 4 chronic kidney disease, with long-term current use of insulin 04/13/2019 Old myocardial infarct 02/19/2019 Ischemic cardiomyopathy 04/19/2016 Essential hypertension with goal blood pressure less than 130/80 03/13/2016 Non-rheumatic mitral regurgitation 03/13/2016 Systolic congestive heart failure 03/13/2016 Anemia of chronic renal failure, stage 4 (severe ) 03/13/2016 DM (diabetes mellitus), type 2, uncontrolled, with renal complications ALBARO (generalized anxiety disorder) Dyslipidemia, goal LDL below 70 GERD without esophagitis CKD (chronic kidney disease), stage IV AICD (automatic cardioverter/defibrillator) pres ent documented as of this encounter (statuses as of 12/14/2023) Resolved Problems Problem Noted Date Diagnosed Date Resolved Date Pancytopenia 01/19/2022 05/18/2022 Hyperparathyroidism 09/19/2021 05/18/19 23 Thrombocytopenia 07/26/2020 05/18/2022 Mild dementia 09/25/2019 05/18/2022 Depression 04/20/2019 04/20/2019 CKD (chronic kidney disease) stage 3, GFR 30-59 ml/min 04/20/2019 09/25/2019 Major depressive disorder, r ecurrent, unspecified 03/04/2019 09/25/2019 Kidney disease, chronic, sta ge IV (GFR 15-29 ml/min) 12/15/2018 02/18/2019 Overview: Per CKD protocol Cardiac defibrillator in situ 09/25/2016 02/18/2019 Ischemic cardiomyopathy 04/19/201611/2017 CKD (chronic kidney disease) stage 3, GFR 30-59 ml/min 03/13/2016 12/19/2018 Overview: Per CKD protocol Non-STEMI (non-ST elevated m yocardial infarction) 02/19/2019 Pneumonia involving right lung 02/18/2019 HTN, goal below 130/80 02/18 CKD (chronic kidney disease) stage 3, GFR 30-59 ml/min 02/16/2019 Hyperkalemia 09/25/2019 Aortic stenosis 06/10/2023 Heart failure with reduced ejection fraction 02/18/2019 Moderate mitral regurgitatio n by prior echocardiogram 09/25/2019 documented as of this encounter (statuses as of 12/14/2023) Immunizations Name Administration Dates Next Due Influenza, Whole Virus 01/16/2013,04/20/2011 Pneumococcal Conjugate Vacc, 13 Valent (Prevnar) 03/10/2019 Pneumococcal Conjugate Vacci ne, 20-valent ([id number]) 09/19/2021 Pneumococcal Polysaccharide PPV23 (Pneumovax) 09/08/2015 Season Influenza, Quad, PF, Adjuvanted, 65+ Yrs, IM (FLUAD) 01/21/2020 Seasonal Influenza, Quadriva lent Hd (Fluzone Hd) 03/08/2023,01/19/2022,03/16/2021 Seasonal Influenza, Trivalen t, Adjuvanted, 65+ YRS, PF, (Fluad) 03/10/2019 Zoster Vaccine Recombinant (Shingrix) 12/16/2019 ,09/26/2019 documented as of this encounter Social History Tobacco Use Types Packs/Day Years Used Date Smoking Tobacco: Never Smokeless Tobacco: Never Alcohol Use Standard Drinks/Week Comments Never 0 (1 standard drink = 0.6 oz pur e alcohol) AUDIT-C Answer Date Recorded Frequency of Alcohol Consumption Never 08/13/2019 Average Number of Drinks Not on file 020 Frequency of Binge Drinking Not on file 10/2019 PHQ-2 Answer Date Recorded PHQ Adult Total Score 2 08/01/2023 Hunger Vital Sign Answer Date Recorded Within the past 12 months, y ou worried that your food would run out before you got the money to buy more. Never true 08/05/19 24 Within the past 12 months, t he food you bought just didn't last and you didn't have money to get more. Never true 08/05/2023 Childcare Answer Date Recorded Do you feel overwhelmed with taking care of a child, family member or friend? No 08/05/2023 Does your family need help f inding childcare? (Household - for ages 0-17 years) Not on file 08/05/2023 Clothing Answer Date Recorded Have you been unable to get clothing when it was really needed? No 08/05/2023 Is your family able to get c lothes or diapers when needed? (Household - for ages 0-17 years) Not on file 08/05/2023 Personal Safety Answer Date Recorded Do you feel unsafe or have concerns for your saf ety? No 08/05/2023 Do you have concerns for you r family's safety? (Household - for ages 0-17 years) Not on file 08/05/2023 Utilities Answer Date Recorded Do you have trouble paying y our heating, water, or electric bill? No 08/05/2023 Is your family able to pay t he heat, water, or electric bill? (Household - for ages 0-17 years) Not on file 08/05/2023 Does your family have access to good internet? (Household - for ages 0-17 years) Not on file 08/05/2023 Employment Status Answer Date Recorded Are you unemployed or without regular income? No 08/05/2023 Does the household have a re gular source of income? (Household - for ages 0-17 years) Not on file 08/05/2023 Social Connections Answer Date Recorded How often do you feel lonely or isolated from th ose around you? Never 08/05/2023 Financial Resource Strain Answer Date R ecorded Do you have any trouble payi ng for your medications, or do you think you might in the future? No 08/05/2023 Does your family have troubl e paying for medicine? (Household - for ages 0-17 years) Not on file 08/05/2023 Transportation Needs Answer Date Record ed READ ONLY Do you have troubl e getting a ride to medical visits or work? Never True 08/05/2023 Does your family have a hard time getting a ride to doctors visits? (Household - for ages 0-17 years) Not on file 08/05/2023 Has lack of transportation k ept you from medical appointments, meetings, work, or from getting things needed for daily living? Check all that apply. (Adult - for ages 18 years and over) Not on file 08/05/2023 Do you (or your family) have trouble finding or paying for a ride (transportation)? (Household - for ages 0-17 years) Not on file 08/05/2023 Housing Stability Answer Date Recorded Do you currently live in a s helter or have no steady place to sleep at night? No 08/05/2023 READ ONLY Do you think you a re at risk of becoming homeless? No 08/05/2023 Does your family worry about paying for your home or becoming homeless? (Household - for ages 0-17 years) Not on file 0 08/05/2023 Are you homeless or worried that you might be in the future? (Adult - for ages 18 years and over) Not on file Are you (or your family) howie eless or worried that you might be in the future? (Household - for ages 0-17 years) Not on file Food Insecurity Answer Date Recorded Do you need food for this week? No 08/05/2023 Are you able to get enough f ood for your family? (Household - for ages 0-17 years) Not on file 08/05/2023 Does your family need food t his week? (Household - for ages 0-17 years) Not on file 08/05/2023 Do you always have enough fo od for your family? (Household - for ages 0-17 years) Not on file 08/05/2023 Sex and Gender Information Value Date Recorded Sex Assigned at Female 12/29/2020 4:04 PM EDT Gender Identity Female 12/29/2020 4:04 PM EDT Sexual Orientation Straight 12/29/2020 4: 04 PM EDT Job Start Date Occupation Industry Not on file Not on file Not on file documented as of this encounter Miscellaneous Notes * Telephone Encounter - Yokasta Rust CRNP - 12/14/2023 12:11 PM EDT Received supervisor travel information center page that patient is having worsening UTI symptoms with weakness, lethargy after finishing bactrim. Son will take to ER now - would like to leave urine culture before going. Has standing urine culture order from urologist. documented in this encounter Plan of Treatment Upcoming Encounters Date Type Department Care Team (Late st Contact Info) Description 01/03/2024 1:00 PM EDT Office Visit [facility] Medicine [address] [phone] Mony Reid CRNP [address] [place] [address] [place] [address] 01/17/2024 10:00 AM EDT Office Visit Hepatology, [facility] [address] [place] [address] Jaclyn Jay MD [address] [place] [address] 01/24/2024 9:30 AM EDT Cardiac Studies Cardiology, [facility] [address] [place] [address] Natanael Cast [facility] [address] [facility] [id number] 02/18/2024 2:45 PM EST Office Visit Hematology/Oncology [facility] [address] [place] [phone] Blayne Caruso MD [address] [facility] [place] [address] 03/09/2024 3:45 PM EST Office Visit Urology, [facility] [address] [place] [address] Zbigniew Holder MD [address] [facility] [place] [address] 03/16/2024 8:00 AM EST Office Visit Family Medicine [address] [place] [phone] Melissa Hand MD [address] [place] [address] [place] [address] 06/09/2024 2:20 PM EST Office Visit Nephrology [address] [place] [address] Nancy Shahid MD [address] [place] [address] [place] [address] 09/09/2024 1:20 PM EDT Office Visit Dermatology [address] [place] [address] Gaby Pitt PA-C [address] [place] [address] [place] [address] Health Maintenance Due Date Last Done Comments Cologuard 1994 Sigmoidoscopy 1994 Hepatitis B Vaccine (1 of 3 - Risk 3-dose series) 2009 Fecal Occult Blood Test 03/06/2020 03/06/2019, 03/09 Adult Wellness Visit 12/29/2021 12/29/2020 Mammogram 05/24/2023 05/24/2022, 05/09, 04/24/2021, Additional history exists Diabetic Eye Exam 07/13/2023 07/12/2022, , 05/18/2022, Additional history exists COVID-19 Vaccine ( season) 2023 Influenza Vaccine (FLU shot) (#1) 2023 03/08/2023, 01/19/2022, 03/16/2021, Additional history exists GFR 04/23/2024 10/22/2023, 07/07, 07/17/2023, Additional history exists HbA1c 04/23/2024 10/22/2023, 03/0 11/2023, 11/08/2022, Additional history exists PTH 06/21/2024 06/22/2023, 03/0 05/2022, 02/22/2022, Additional history exists Hgb 07/23/2024 07/24/2023, 07/07, 06/22/2023, Additional history exists Depression Monitoring 07/31/2024 08/01/2023 Diabetic Foot Exam 09/19/2024 09/20/2023, 0 08/08/2022, 09/19/2021, Additional history exists Albumin/Creatinine Ratio 10/21/2024 024, 12/31/2022, 11/08/2022, Additional history exists Phosphate 10/21/2024 10/22/2023, 11/06, 11/08/2022, Additional history exists Nephrology Referral 10/24/2024 10/25/2023, 4 Colonoscopy 09/13/2029 09/14/2019 Colorectal Cancer Screening 09/13/2029 DTap/Tdap Vaccines (2 - Td or Tdap) 01/17/2030 01/18/2020 (Declined) Zoster Vaccines Completed 12/16/2019, 09/26/2019 Pneumococcal Vaccine: 65+ Years Completed 09/19/2021, 03/10/2019, 02/11/2019, Additional history exists HPV (Gardasil) Vaccine Aged Out No lo nger eligible based on patient's age to complete this topic MENINGOCOCCAL (MENACTRA/MENVEO) Aged Out No longer eligible based on patient's age to complete this topic documented as of this encounter Medical Devices Not on filedocumented as of this encounter Advance Directives Documents on File Type Date Recorded Patient [place] Expl anation POLST 12/20/2022 2:13 PM POLST (Rosen ited DNR) Care Teams News Reel Cameraman Relationship Specialty Start Date End Date Melissa Hand MD [address] [place] [address] [place] [address] PCP - General Family Medicine 03/11/19 documented as of this encounter
--- OUTSIDE RECORDS SUMMARY | 2023-12-30 03:15 | External Medical Summary | Summary of Care ---
Author Name Unknown Organization [facility] Address [address] [facility] [address] Phone [phone] Care Team Providers Care Stull Installer Name Role Phone Melissa Hand MD Primary Care Prov ider Encounter Details Date Type Department Care Team (Late st Contact Info) Description 12/10/2023 Telephone Urology, [facility] 132 [facility] [place] [address] Zbigniew Holder MD [address] [place] [address] Allergies Active Allergy Reactions Criticality Noted Date Comments Lisinopril Cough Low 04/25/2020 High potassium documented as of this encounter (statuses as of 12/13/2023) Medications Medication Sig Dispensed Refills Start Date [...] of chronic renal failure, stage 4 (severe) ([facility]) Take 2 Tablets by mouth in the [...] as of this encounter (statuses as of 12/13/2023) Active Problems Problem Noted Date Diagnosed Date [...] as of this encounter (statuses as of 12/13/2023) Resolved Problems Problem Noted Date Diagnosed Date [...] as of this encounter (statuses as of 12/13/2023) Immunizations Name Administration Dates Next Due Influenza, Whole Virus 01/16/2013,04/20/2011 Pneumococcal Conjugate Vacc, 13 Valent (Prevnar) 03/10/2019 Pneumococcal Conjugate Vacci ne, 20-valent ([id number]) 09/19/2021 Pneumococcal Polysaccharide PPV23 (Pneumovax) 09/08/2015 Season [...] 08/05/2023 Does the household have a re lar source of income? (Household - for ages [...] encounter Miscellaneous Notes * Telephone Encounter - Abeby Cain LPN - 12/13/2023 8:51 AM EDT Pt's son Yousuf states the patient has not had improvement in her symptoms and feels that have gotten worse. No fever, confused at times/hs,balance is off, weak, lethargic, inability to get out of bed, son states this is her normal with UTI's. Son states this initiated in [place]. She finished herself start antibiotic yesterday, concerned infection is not cleared. Son is willing to drop off a new urine sample. Please advise for further recommendations. * Telephone Encounter - Marsha Rowley OSA - 12/13/2023 8:09 AM EDT Patient son calling in , stating pt has finished antibiotic yesterday and patient is not better, thinks she gotten worse, please advise, thanks Yousuf * Telephone Encounter - Yokasta Flores LPN - 12/11/2023 8:56 AM EDT Spoke with pt's son, Youusf. Patient started bactrim on Saturday. Yousuf has noticed improvement. Awareto finish course, contact office if no resolution in symptoms. * Telephone Encounter - Zbigniew Holder MD - 12/10/2023 4:27 PM EDT Patient's urine culture is positive for UTI. Should be covered with her self start prescription forBactrim. Recommend the patient take her medication if she is not taking it already. Thx, HM documented in this encounter Plan of Treatment Upcoming Encounters Date Type Department Care Team (Late st Contact Info) Description 01/03/2024 1:00 PM EDT Office Visit Family Medicine [address] [place] [phone] Mony Reid [address] [place] [address] 01/17/2024 10:00 AM EDT [facility] [address] [place] [address] Jaclyn Jay MD [address] [place] [phone] 01/24/2024 9:30 AM EDT Cardiac Studies Cardiology, [facility] 132 [facility] [place] [address] [facility] 132 [facility] [place] [address] 02/18/2024 2:45 PM EST Office Visit Hematology/Oncology [facility] 200 [facility] [place] [phone] Blayne Caruso MD 200 [facility] [place] [address] 03/09/2024 3:45 PM EST Office Visit Urology, [facility] 132 [facility] [place] [address] Zbigniew Holder MD 27 [facility] [place] [address] 03/16/2024 8:00 AM EST Office Visit Family Medicine [address] [place] [phone] Melissa Hand MD [address] [place] [address] [place] [address] 06/09/2024 2:20 PM EST Office Visit Nephrology [address] [place] [address] Nancy Shahid MD 200 [facility] [place] [address] 09/09/2024 1:20 PM EDT Office Visit Dermatology [address] [place] [address] Gaby Pitt PA-C [address] [place] [address] [place] [address] Health Maintenance Due Date Last Done Comments [...] 03/16/2021, Additional history exists GFR 04/23/2024 10/22/2023, 1 10/2023, 07/17/2023, Additional history exists HbA1c 04/23/2024 10/22/2023, 03/0 11/2023, 11/08/2022, Additional history exists PTH 06/21/2024 06/22/2023, 03/0 05/2022, 02/22/2022, Additional history exists Hgb 07/23/2024 07/24/2023, 07/07, 06/22/2023, Additional history exists Depression Monitoring 07/31/2024 08/01/2023 Diabetic Foot Exam 09/19/2024 09/20/2023, 0 08/08/2022, 09/19/2021, Additional history exists Albumin/Creatinine Ratio 10/21/[address] 024, 12/31/2022, 11/08/2022, Additional history exists Phosphate [...] Documents on File Type Date Recorded Patient Dock Manager Expl anation POLST 12/20/2022 2:13 PM POLST (Rosen ited DNR) Care Teams Stull Installer Relationship Specialty Start Date End Date Melissa Hand MD [address] [place] [address] [place] [address] PCP - General Family Medicine 03/11/19 documented as of this encounter
--- OUTSIDE RECORDS SUMMARY | 2023-12-30 03:15 | External Medical Summary | Summary of Care ---
Author Name Unknown Organization [facility] Address [address] [facility] [address] Phone [phone] Care Team Providers Care Retail Field Representative Name Role Phone Melissa Hand MD Primary Care Prov ider Reason for Visit * Reason Comments eRx-Medication Refill Encounter Details Date Type Department Care Team (Late st Contact Info) Description 12/15/2023 Refill Family Medicine [address] [phone] Melissa Hand MD [address] [place] [address] [place] [address] Recurrent major depressive disorder, in full remission (HCC); Poor appetite Allergies Active Allergy Reactions Criticality Noted Date Comments Lisinopril Cough Low 04/25/2020 High potassium documented as of this encounter (statuses as of 12/17/2023) Medications Medication Sig Dispensed Refills Start Date End Date Status Acetaminophen 325 MG Oral Tablet Take 2 Tablets by mouth every 4 hours as needed. 100 Tab 9 Active nitroglycerin (NITROSTAT) 0.[address] 1 Tab under the tongue as needed for Pain, Chest. May repeat 3 times. If chest pain continues, call 911. 25 Tab 9 Active Lancets MISC Test 3 times daily E11.9 100 Each 5 0 Active OneTouch Delica Lancets 33G MISCIndications:DM (diabetes mellitus), type 2, uncontrolled, with renal complications Test 3 times daily. E11.9 100 Each 5 0 Active Vitamin D3 25 MCG (1000 UT) Oral Tablet (Vitamin D3) Take 1 Tablet by mouth in the morning. 1 Active Cranberry 50 MG Oral Tablet Chewable Once per daily 3 Active Ketoconazole 2 % External CreamIndications:S eborrheic dermatitis Apply 2x daily to rash on face until resolved, then when flaring 60 g 2 3 Active BD Pen Needle Raquel U/F 32G X 4 MM (Insulin Pen Needle) use with insulin and victoza--2 needles per day 200 Each 3 3 Active Basaglar KwikPen 100 UNIT/ML Subcutaneous Solution Pen-injector (Insulin Glargine Solostar) inject 15 units under the skin at bedtime 15 mL 1 4 Active Trulicity 1.5 MG/0.5ML Subcutaneous Solution Pen-injector (Dulaglutide)Indic ations:Type 2 diabetes mellitus with stage 4 chronic kidney disease, with long-term current use of insulin (HCC) Inject 1.5 mg under the skin once a week. 2 mL 5 4 Active Additional Information Patient not taking.Reported on 10/25/2023 Trulicity 0.75 MG/0.5ML Subcutaneous Solution Pen-injector (Dulaglutide)Indic ations:Type 2 diabetes mellitus with stage 4 chronic kidney disease, with long-term current use of insulin (HCC) Inject 0.75 mg under the skin once a week. 2 mL 11 4 Active Aspirin Low Dose 81 MG Oral Tablet Delayed Release (aspirin enteric coated) TAKE ONE TABLET BY MOUTH EVERY DAY 90 Tablet 3 4 Active Sertraline HCl 100 MG Oral Tablet (Zoloft)Indication s:Recurrent major depressive disorder, in full remission (HCC) Take 1.5 Tablets by mouth at bedtime. 135 Tablet 1 4 Active ALPRAZolam 0.25 MG Oral Tablet (Xanax)Indications :Irritability Take 1 Tablet by mouth daily as needed for Anxiety or Agitation. 4 Tablet 4 Active Isosorbide Dinitrate 10 MG Oral Tablet (Isordil) TAKE ONE TABLET BY MOUTH TWICE DAILY AT 0700 AND 1200 FOR 30 DAYS 60 Tablet 5 4 Active Rosuvastatin Calcium 10 MG Oral Tablet (Crestor) Take 1 Tablet by mouth in the morning. 90 Tablet 1 4 Active OneTouch Verio In Vitro Strip (Glucose Blood)Indications: Type 2 diabetes mellitus with stage 4 chronic kidney disease, with long-term current use of insulin ([facility]) test blood sugar 3 times daily dx e11.22 300 Strip 1 4 Active Gabapentin 100 MG Oral Capsule (Neurontin)Indicat ions:Coccyx pain,Sacral back pain TAKE ONE CAPSULE BY MOUTH EVERY DAY 90 Capsule 4 Active Torsemide 10 MG Oral Tablet (Demadex)Indicatio ns:Anemia of chronic renal failure, stage 4 (severe) ([facility]) Take 2 Tablets by mouth in the morning. 90 Tablet 3 4 Active Metoprolol Succinate ER 50 MG Oral Tablet Extended Release 24 Hour (toPROL XL)Indications:Chr onic systolic congestive heart failure ([facility]) TAKE ONE TABLET BY MOUTH IN THE MORNING AND BEFORE BEDTIME 180 Tablet 1 4 Active Ketoconazole 2 % External Shampoo (Nizoral)Indicatio ns:Seborrheic dermatitis massage into scalp and rinse out after five to ten minutes, do 3 times weekly then apply clindamycin gel to open sores if needed 360 mL 2 4 Active Sulfamethoxazole-T rimethoprim 800-160 MG Oral Tablet (Bactrim DS) Take 1 Tablet by mouth in the morning and 1 Tablet before bedtime. Use as directed.. 14 Tablet 3 4 Active Mirtazapine 15 MG Oral Tablet (Remeron)Indicatio ns:Recurrent major depressive disorder, in full remission ([facility]),Poor appetite TAKE ONE TABLET BY MOUTH AT BEDTIME 30 Tablet 5 4 Active Mirtazapine 15 MG Oral Tablet (Remeron)Indicatio ns:Recurrent major depressive disorder, in full remission (HCC),Poor appetite TAKE ONE TABLET BY MOUTH AT BEDTIME 30 Tablet 5 4 12/17/19 24 Discontinued documented as of this encounter (statuses as of 12/17/2023) Active Problems Problem Noted Date Diagnosed Date [...] as of this encounter (statuses as of 12/17/2023) Resolved Problems Problem Noted Date Diagnosed Date [...] as of this encounter (statuses as of 12/17/2023) Immunizations Name Administration Dates Next Due Influenza, Whole Virus 01/16/2013,04/20/2011 Pneumococcal Conjugate Vacc, 13 Valent (Prevnar) 03/10/2019 Pneumococcal Conjugate Vacci ne, 20-valent ([id number]) 09/19/2021 Pneumococcal Polysaccharide PPV23 (Pneumovax) 09/08/2015 Season [...] encounter Miscellaneous Notes * Telephone Encounter - Melissa Hand MD - 12/17/2023 1:24 PM EDT Signed Prescriptions: Disp Refills Mirtazapine 15 MG Oral Tablet (Remeron) 30 Tab*5 Sig: TAKE ONE TABLET BY MOUTH AT BEDTIME Authorizing Provider: MELISSA HAND * Telephone Encounter - Corinne Davis [facility] - 12/17/2023 12:22 PM EDTPending Prescriptions: Disp Refills Mirtazapine 15 MG Oral Tablet (Remeron) 30 Tab*5 Sig: TAKE ONE TABLET BY MOUTH AT BEDTIME * Telephone Encounter - Corinne Davis [facility] - 12/17/2023 12:22 PM EDT Unable to authorize medication refills for pended medication(s) at this time. Part of the protocol criteria used for refill authorization was not satisfied. Patient needs WBC WNL. Please approve if appropriate. CBC Results: Results for orders placed or performed in visit on 07/24/23 CBC Result Value Ref Range WBC 2.02 (L) 4.00 - 10.80 K/uL RBC 3.25 3.85 - 5.15 M/uL HGB 10.6 (L) 12.0 - 15.3 g/dL HCT 33.6 (L) 36.0 - 45.2 % MCV 103.4 81.5 - 97.5 fL MCH 32.6 27.0 - 34.0 pg MCHC 31.5 32.0 - 36.0 g/dL RDW 14.9 11.5 - 15.5 % PLT 110 (L) 140 - 400 K/uL MPV 10.7 6.6 - 11.1 fL Corinne Zaman Clinical Pharmacist [facility] [phone] 12/17/2023, 12:22 PM * Telephone Encounter - Corinne Davis RPh - 12/17/2023 12:22 PM EDT Did you pend patient's preferred pharmacy and medication before forwarding?yes Pharmacy: [id number] Pending Prescriptions: Disp Refills Mirtazapine 15 MG Oral Tablet (Remeron) [*30 Tab*5 Sig: TAKE ONE TABLET BY MOUTH AT BEDTIME Last Visit: 10/22/2023 (in office), Visit date not found (telemedicine) Next Visit: 01/03/2024 If no future appointments scheduled, and last appointment is greater than a year ago, please schedule patient for a follow-up appointment Last date the medication was ordered: 05/22/23 Is this request for a controlled substance?No Urine Drug Screen:No results found for this or any previous visit. Patient Phone Numbers [employer] [phone] Labs: Lab Results Component Value Date/Time CREAT 1.5 (H) 10/22/2023 09:42 AM CREAT 1.8 (H) 04/25/2020 02:16 PM POTASSIUM 4.6 10/22/2023 09:42 AM POTASSIUM 5.3 (H) 04/25/2020 02:16 PM TSH 2.15 08/26/2019 03:00 PM LDL 30 06/14/2023 08:40 AM LDL 46 04/25/2020 02:16 PM LDLCALC 74.40 05/27/2018 12:00 AM LDLCALC 74.40 05/27/2018 12:00 AM ALT 28 06/14/2023 08:40 AM ALT 18 03/13/2019 11:20 AM HGBA1C 7.7 (H) 10/22/2023 09:42 AM HGBA1C 6.4 (H) 04/25/2020 02:16 PM documented in this encounter Plan of Treatment Upcoming Encounters Date Type Department Care Team (Late st Contact Info) Description 01/03/2024 1:00 PM EDT Office Visit Family Medicine [address] [place] [phone] Mony Reid CRNP [address] [place] [address] [place] [address] 01/17/2024 10:00 AM EDT Office Visit Hepatology, [facility] 132 [facility] [place] [address] Jaclyn Jay MD [address] [place] [address] 01/24/2024 9:30 AM EDT Cardiac Studies Cardiology, [facility] 132 [facility] [address] [facility] Pacer [address] [place] [address] 02/18/2024 2:45 PM EST Office Visit Hematology/Oncology [facility] 200 [facility] [place] [phone] Blayne Caruso MD [facility] [address] 03/09/2024 3:45 PM EST Office Visit Urology, [address] [place] [address] Zbigniew Holder MD [address] [place] [address] [place] [address] 03/16/2024 8:00 AM EST Office Visit Family Medicine [address] [phone] Melissa Hand MD [address] [place] [address] [place] [address] 06/09/2024 2:20 PM EST Office Visit Nephrology [address] [place] [address] Nancy Shahid MD 200 [facility] [address] 09/09/2024 1:20 PM EDT Office Visit Dermatology [address] [place] [address] Gaby Pitt PA-C [address] [place] [address] [place] [address] Health Maintenance Due Date Last Done Comments [...] 11/08/2022, Additional history exists Phosphate 10/21/2024 10/22/2023, 0808/2022, 11/08/2022, Additional history exists Nephrology Referral 10/24/2024 [...] Not on filedocumented as of this encounter Visit Diagnoses Diagnosis Recurrent major depressive disorder, in full remission (HCC) Poor appetite Anorexia documented in this encounter Advance Directives Documents on File Type Date Recorded Patient Ship Keeper Expl anation POLST 12/20/2022 2:13 PM POLST (Rosen ited DNR) Care Teams Retail Field Representative Relationship Specialty Start Date End Date Melissa Hand MD [address] [place] [address] [place] [phone] PCP - General Family Medicine 03/11/19 documented as of this encounter
--- OUTSIDE RECORDS SUMMARY | 2023-12-30 03:15 | External Medical Summary | Summary of Care ---
Author Name Unknown Organization [facility] Address [address] [facility] [place] [address] Phone [phone] Care Team Providers Care Reacher Name Role Phone Melissa Hand MD Primary Care Prov ider Encounter Details Date Type Department Care Team (Late st Contact Info) Description 12/10/2023 Telephone Urology, [facility] 132 [facility] [place] [address] Zbigniew Holder [...] of chronic renal failure, stage 4 (severe) ([facility]) Take 2 Tablets by mouth in the [...] (Prevnar) 03/10/2019 Pneumococcal Conjugate Vacci ne, 20-valent ([id number]) 09/19/2021 Pneumococcal Polysaccharide PPV23 (Pneumovax) 09/08/2015 Season [...] encounter Miscellaneous Notes * Telephone Encounter - Abbey Cain LPN - 12/13/2023 9:14 AM EDT I called and spoke with pt's son Yousuf, he states he feels she is stable- this is her norm with UTI's. His sister is going to bring the patient for a urine sample, made him aware we will be in touch with results and result timeframe. * Telephone Encounter - Zbigniew Holder MD - 12/13/2023 9:03 AM EDT If son feels patient is not stable, should be brought to ER for more acute evaluation. Would check repeat culture as noted. Thx, HM * Telephone Encounter - Abbey Cain LPN - 12/13/2023 8:51 AM EDT [...] 8:56 AM EDT Spoke with pt's son, Yousuf. Patient started bactrim on Saturday. Yousuf has noticed improvement. Awareto finish course, contact office if no resolution in symptoms. * Telephone Encounter - Zbigniew Holdre MD - 12/10/2023 4:27 PM EDT Patient's [...] 1:00 PM EDT Office Visit Family Medicine [address] [phone] Mony Reid CRNP [address] [place] [address] [place] [address] 01/17/2024 10:00 AM EDT Office Visit Hepatology, [facility] 132 [facility] [place] [address] Jaclyn Jay MD [address] [place] [phone] 01/24/2024 9:30 AM EDT Cardiac Studies Cardiology, [facility] 132 [facility] [address] [facility] 132 [place] [address] 02/18/2024 2:45 PM EST Office Visit Hematology/Oncology [facility] 200 [facility] [place] [phone] Blayne [facility]uso MD 200 [facility] [address] 03/09/2024 3:45 PM EST Office Visit Urology, [facility] 132 [facility] [place] [address] Zbigniew Holder MD [address] [place] [phone] 03/16/2024 8:00 AM EST Office Visit Family Medicine [address] [place] [phone] Melissa Hand MD [address] [place] [address] [place] [address] 06/09/2024 2:20 PM EST Office Visit Nephrology [address] [place] [address] Nancy Shahid MD 200 [facility] [place] [address] 09/09/2024 1:20 PM EDT Office Visit Dermatology [address] [place] [address] Gaby Pitt PA-C [address] [place] [address] [place] [address] Health Maintenance Due Date Last Done Comments [...] Documents on File Type Date Recorded Patient Center Mgr Expl anation POLST 12/20/2022 2:13 PM POLST (Rosen ited DNR) Care Teams Reacher Relationship Specialty Start Date End Date Melissa Hand MD [address] [place] [address] [place] [address] PCP - General Family Medicine 03/11/19 documented as of this encounter
--- OUTSIDE RECORDS SUMMARY | 2023-12-30 03:15 | External Medical Summary ---
Author Name Unknown Address Unknown Organization K01:LABORATORY [facility] - [address] [place] [address] Laboratory Report Ordering Provider Test Date Status NOEMICLINTON 12/14/2023 13:12:54 Final Observation Date Value Abnormality Reference (Units) Status Bacteria identified in Specimen by Culture 12/14/2023 13:12:54 No significant growth Final Test: Culture, Urine, Quanti tative
Specimen Source: Urine, Clean Catch
Specimen Type: Urine
Specimen Date: 12/14/2023 1312
Result Date: 12/15/2023 1405
Result Status: Final result
Resulting Lab: [facility]ATORY [facility]
[address]
[place] [address]

CULTURE

No significant growth

null Performing Location LAB[facility]ATORY [facility] - [address] [facility] [address]
--- OUTSIDE RECORDS SUMMARY | 2023-12-30 03:15 | External Medical Summary | Summary of Care ---
Author Name Unknown Organization [facility] Address [address] [facility] [address] Phone [phone] Care Team Providers Care Cashier Or Checker Stock Clerk Name Role Phone Melissa Hand MD Primary Care Prov ider Reason for Visit * Reason Comments Outpatient Testing Encounter Details Date Type Department Care Team (Late st Contact Info) Description 12/14/2023 1:10 PM EDT Laboratory Laboratory, [facility] [address] [place] [phone] [place], Specimen Drop Off [facility] [address] Recurrent UTI Allergies Active Allergy Reactions Criticality Noted Date [...] 3 times daily. E11.9 100 Each 5 11/14/2019 Active Vitamin D3 25 MCG (1000 [...] of chronic renal failure, stage 4 (severe) ([facility]) Take 2 Tablets by mouth in the [...] (Prevnar) 03/10/2019 Pneumococcal Conjugate Vacci ne, 20-valent ([id number]) 09/19/2021 Pneumococcal Polysaccharide PPV23 (Pneumovax) 09/08/2015 Season [...] on file documented as of this encounter Plan of Treatment Upcoming Encounters Date Type Department Care Team (Late st Contact Info) Description 01/03/2024 1:00 PM EDT Office Visit Family Medicine [address] [place] [phone] Mony Reid [address] [place] [address] 01/17/2024 10:00 AM EDT Office Visit Hepatology, [facility] 132 [facility] [place] [address] Jaclyn Jay MD [address] [place] [phone] 01/24/2024 9:30 AM EDT Cardiac Studies Cardiology, [facility] 132 [facility] [address] [facility] 132 [facility] [place] [address] 02/18/2024 2:45 PM EST Office Visit Hematology/Oncology [facility] [address] [place] [phone] Blayne Caruso MD [address] [place] [address] 03/09/2024 3:45 PM EST Office Visit Urology, [facility] 132 [facility] [address] Zbigniew Holder MD [address] [place] [address] 03/16/2024 8:00 AM EST Office Visit Family Medicine [address] [place] [phone] Melissa Hand MD [address] [place] [address] [place] [address] 06/09/2024 2:20 PM EST Office Visit Nephrology [address] [place] [address] Nancy Shahid MD [address] [place] [address] 09/09/2024 1:20 PM EDT Office Visit Dermatology [address] [place] [address] Gaby Pitt PA-C [address] [place] [address] [place] [address] Pending Results Name Type Priority Associated Diagnoses Date /Time CULTURE, URINE, QUANTITATIVE Lab Routine Recurrent UTI 12/14/2023 1:12 PM EDT Health Maintenance Due Date Last Done Comments [...] 03/16/2021, Additional history exists GFR 04/23/2024 10/22/2023, 041 10/2023, 07/17/2023, Additional history exists HbA1c 04/23/2024 10/22/2023, 03/0 11/2023, 11/08/2022, Additional history exists PTH 06/21/2024 06/22/2023, 03/0 05/2022, 02/22/2022, Additional history exists Hgb 07/23/2024 07/24/2023, 04/1 , 06/22/2023, Additional history exists Depression Monitoring 07/31/2024 08/01/2023 Diabetic Foot Exam 09/19/2024 09/20/2023, 0 08/08/2022, 09/19/2021, Additional history exists Albumin/Creatinine Ratio 10/21/20242 024, 12/31/2022, 11/08/2022, Additional history exists Phosphate 10/21/2024 10/22/2023, 11/06, 11/08/2022, Additional history exists Nephrology Referral 10/24/2024 10/25/2023, 07/16/202 4 Colonoscopy 09/13/2029 09/14/2019 Colorectal Cancer Screening [...] of this encounter Visit Diagnoses Diagnosis Recurrent UTI Urinary tract infection, site not specified documented in this encounter Advance Directives Documents on File Type Date Recorded Patient Samples And Repairs Preparer Expl anation POLST 12/20/2022 2:13 PM POLST (Rosen ited DNR) Care Teams Cashier Or Checker Stock Clerk Relationship Specialty Start Date End Date Melissa Hand MD [address] [place] [address] [place] [address] PCP - General Family Medicine 03/11/19 documented as of this encounter
--- OUTSIDE RECORDS SUMMARY | 2023-12-30 03:15 | External Medical Summary | Summary of Care ---
Author Name Unknown Organization [facility] Address [address] [facility] [address] Phone [phone] Care Team Providers Care Bulb Tester Name Role Phone Melissa Hand MD Primary Care Prov ider Encounter Details Date Type Department Care Team (Late st Contact Info) Description 12/10/2023 Telephone Urology, [facility] 132 [facility] [place] [address] Zbigniew Holder MD 27 [...] of chronic renal failure, stage 4 (severe) ([facility]) Take 2 Tablets by mouth in [...] (Prevnar) 03/10/2019 Pneumococcal Conjugate Vacci ne, 20-valent ([id number]) 09/19/2021 Pneumococcal Polysaccharide PPV23 (Pneumovax) 09/08/2015 Season [...] encounter Miscellaneous Notes * Telephone Encounter - Zbigniew Holder MD [...] 1:00 PM EDT Office Visit Family Medicine [address] [place] [phone] Mony Reid [address] [place] [address] 01/17/2024 10:00 AM EDT Office Visit Hepatology, [facility] 132 [facility] [place] [address] Jaclyn Jay MD [address] [place] [address] 01/24/2024 9:30 AM EDT Cardiac Studies Cardiology, [facility] 132 [place] [address] [facility] 132 [place] [address] 02/18/2024 2:45 PM EST Office Visit Hematology/Oncology [facility] [address] [place] [phone] Blayne Caruso MD [address] [place] [address] 03/09/2024 3:45 PM EST Office Visit Urology, [facility] 132 [facility] [place] [address] Zbigniew Holder MD [address] [place] [address] 03/16/2024 8:00 AM EST Office Visit Family Medicine [address] [place] [phone] Melissa Hand MD [address] [place] [address] [place] [address] 06/09/2024 2:20 PM EST Office Visit Nephrology [address] [place] [address] Nancy Shahid MD [address] [place] [address] 09/09/2024 1:20 PM EDT Office Visit Dermatology [address] [place] [address] Gaby Pitt PA-C [address] [place] [address] [place] [address] Health Maintenance Due Date Last Done Comments Cologuard 1994 Sigmoidoscopy 1994 Hepatitis B Vaccine (1 of 3 - Risk 3-dose series) 2009 Fecal Occult Blood Test 03/06/2020 03/06/2019, 03/09 Adult Wellness Visit 12/29/2021 12/29/2020 Mammogram 05/24/2023 05/24/2022, 05/09, 04/24/2021, Additional history exists Diabetic Eye Exam 07/13/2023 07/12/2022, , 05/18/2022, Additional history exists COVID-19 Vaccine () 12/08/2023 Influenza Vaccine (FLU shot) (#1) 2023 03/08/2023, 01/19/2022, 03/16/2021, Additional history exists GFR 04/23/2024 10/22/2023, 07/07, 07/17/2023, Additional history exists HbA1c 04/23/2024 10/22/2023, 03/0 11/2023, 11/08/2022, Additional history exists PTH 06/21/2024 06/22/2023, 03/0 05/2022, 02/22/2022, Additional history exists Hgb 07/23/2024 07/24/2023, 07/07, 06/22/2023, Additional history exists Depression Monitoring 07/31/2024 08/01/2023 Diabetic Foot Exam 09/19/2024 09/20/2023, 0 08/08/2022, 09/19/2021, Additional history exists Albumin/Creatinine Ratio 10/21/202410/21/2 024, 12/31/2022, 11/08/2022, Additional history exists Phosphate [...] Documents on File Type Date Recorded Patient Laser Set Up Operator Expl anation POLST 12/20/2022 2:13 PM POLST (Rosen ited DNR) Care Teams Bulb Tester Relationship Specialty Start Date End Date Melissa Hand MD [address] [place] [address] [place] [phone] PCP - General Family Medicine 03/11/19 documented as of this encounter
--- OUTSIDE RECORDS SUMMARY | 2023-12-30 03:16 | External Medical Summary | Summary of Care ---
Author Name Unknown Organization [facility] [address] [facility] [address] Phone [phone] Care Team Providers Care Manager Supply Chain Planning Name Role Phone Melissa Hand MD Primary Care Prov ider Reason for Visit * Reason Onset Date Comments Test Results 10/31/2023 Encounter Details Date Type Department Care Team (Late st Contact Info) Description 10/31/2023 Telephone Family Medicine [address] [phone] Melissa Hand MD [address] [place] [address] [place] [address] Test Results Allergies Active Allergy Reactions Criticality Noted Date Comments Lisinopril Cough Low 04/25/2020 High potassium documented as of this encounter (statuses as of 11/05/2023) Medications Medication Sig Dispensed Refills Start Date [...] dx e11.22 300 Strip 1 07/31/2023 Active Sulfamethoxazole-Tri methoprim 800-160 MG Oral Tablet (Bactrim DS) Take 1 Tablet by mouth in the morning and 1 Tablet before bedtime. Use as directed.. 14 Tablet 09/30/2023 Active Additional Information Patient not taking.Reported on 10/25/2023 Gabapentin 100 MG Oral Capsule (Neurontin)Indicatio ns:Coccyx pain,Sacral back pain TAKE ONE CAPSULE BY MOUTH EVERY DAY 90 Capsule 10/07/2023 Active Torsemide 10 MG Oral Tablet (Demadex)Indications :Anemia of chronic renal failure, stage 4 (severe) (HCC) Take 2 Tablets by mouth in the morning. 90 Tablet 3 10/25/2023 Active Metoprolol Succinate ER 50 MG Oral Tablet Extended Release 24 Hour (toPROL XL)Indications:Chron ic systolic congestive heart failure (HCC) TAKE ONE TABLET BY MOUTH IN THE MORNING AND BEFORE BEDTIME 180 Tablet 1 10/27/2023 Active documented as of this encounter (statuses as of 11/05/2023) Active Problems Problem Noted Date Diagnosed Date [...] as of this encounter (statuses as of 11/05/2023) Resolved Problems Problem Noted Date Diagnosed Date [...] defibrillator in situ 09/25/2016 02/18/2019 Ischemic cardiomyopathy 04/19/2016 11/0 11/2017 CKD (chronic kidney disease) stage 3, GFR [...] as of this encounter (statuses as of 11/05/2023) Immunizations Name Administration Dates Next Due Influenza, Whole Virus 01/16/2013,04/20/2011 Pneumococcal Conjugate Vacc, 13 Valent (Prevnar) 03/10/2019 Pneumococcal Conjugate Vacci ne, 20-valent ([id number]) 09/19/2021 Pneumococcal Polysaccharide PPV23 (Pneumovax) 09/08/2015 Season Influenza, Quad, PF, Adjuvanted, 65+ Yrs, IM (FLUAD) 01/21/2020 Seasonal Influenza, Quadriva lent Hd (Fluzone Hd) 03/08/2023,01/19/2022,03/16/2021 Seasonal Influenza, Trivalen t, Adjuvanted, 65+ yrs 03/10/2019 Zoster Vaccine Recombinant (Shingrix) 12/16/2019 ,09/26/2019 [...] encounter Miscellaneous Notes * Telephone Encounter - Chelle Javed LPN - 10/31/2023 9:12 AM EDT Patient(s) Son, Yousuf, returned call. Informed of message. Verbalized understanding. * Telephone Encounter - Eli Peterson RN - 10/31/2023 8:48 AM EDT Unread myG message returned to Melissa Tovar MD . Radha, Your lab results show improvement in your kidney function and diabetes management - great work! Letme know if you have any questions. Melissa Tovar MD Left message for the patient to call the office. documented in this encounter Plan of Treatment Upcoming Encounters Date Type Department Care Team (Late st Contact Info) Description 11/06/2023 11:15 AM EDT Office Visit Urology, [facility] [address] [facility] [place] [address] Zbigniew Holder MD [address] [place] [address] 11/27/2023 9:40 AM EDT Office Visit Family [address] [phone] Melissa Hand MD [address] [place] [address] [place] [address] 01/03/2024 1:00 PM EDT Office Visit Family [address] [phone] Mony Reid CRNP [address] [place] [address] [place] [address] 01/17/2024 10:00 AM EDT Office Visit Hepatology, [facility] [address] [facility] [place] [address] Jaclyn Jay MD [address] [place] [address] 01/24/2024 9:30 AM EDT Cardiac Studies Cardiology, [facility] [address] [facility] [place] [address] [place], [facility] [address] [facility] [place] [address] 02/18/2024 2:45 PM EST Office Visit Hematology/Oncology [facility] [address] [facility] [place] [phone] Blayne Caruso MD [address] [facility] [place] [address] 06/09/2024 2:20 PM EST Office Visit Nephrology [address] [place] [address] Nancy Shahid MD [address] [place] [address] 09/09/2024 1:20 PM EDT Office Visit Dermatology [address] [place] [address] Gaby Pitt PA-C [address] [place] [address] [place] [address] Health Maintenance Due Date Last Done Comments Cologuard 1994 Sigmoidoscopy 1994 Hepatitis B Vaccine (1 of 3 - Risk 3-dose series) 2009 Fecal Occult Blood Test 03/06/2020 03/06/2019, 03/09 COVID-19 Vaccine ( season) 2022 Mammogram 05/24/2023 05/24/2022, 05/09, 04/24/2021, Additional history exists Diabetic Eye Exam 07/13/2023 07/12/2022, , 05/18/2022, Additional history exists Influenza Vaccine (FLU shot) (#1) 2023 03/08/2023, [...] Colonoscopy 09/13/2029 09/14/2019 Colorectal Cancer Screening 09/13/2029 DTaP,Tdap,and Td Vaccines (2 - Td or Tdap) 01/17/2030 01/18/2020 (Declined) Zoster Vaccines Completed 12/16/2019, 09/26/2019 Pneumococcal Vaccine: 65+ Years Completed 09/19/2021, 03/10/2019, 02/11/2019, Additional history exists Hepatitis C Screening Completed 01/29/2023, 019 HPV (Gardasil) Vaccine Aged Out No lo nger eligible based on patient's age to complete this topic MENINGOCOCCAL (MENACTRA/MENVEO) Aged Out No longer eligible based on patient's age to complete this topic documented as of this encounter Medical Devices Not on filedocumented as of this encounter Advance Directives Documents on File Type Date Recorded 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
--- OUTSIDE RECORDS SUMMARY | 2023-12-30 03:16 | External Medical Summary | Summary of Care ---
Author Name Unknown Organization [facility] Address [address] [facility] [place] [address] Phone [phone] Care Team Providers Care Russian Language Professor Name Role Phone Melissa Hand MD Primary Care Prov ider Encounter Details Date Type Department Care Team (Late st Contact Info) Description 10/28/2023 Orders Only PATIENT PORTAL DO NOT DELETE THIS DEPT USED BY [place] [id number] Allergies Active Allergy Reactions Criticality Noted Date Comments Lisinopril Cough Low 04/25/2020 High potassium documented as of this encounter (statuses as of 10/28/2023) Medications Medication Sig Dispensed Refills Start Date [...] when flaring 60 g 2 08/22/2022 Active Ketoconazole 2 % External Shampoo (Nizoral)Indications :Seborrheic dermatitis MASSAGE INTO SCALP AND RINSE OUT AFTER FIVE TO TEN MINUTES, DO 3 TIMES WEEKLY THEN APPLY CLINDAMYCIN GEL TO OPEN SORES IF NEEDED 360 mL 2 08/22/2022 Active BD Pen Needle Raquel [...] as of this encounter (statuses as of 10/28/2023) Active Problems Problem Noted Date Diagnosed Date [...] as of this encounter (statuses as of 10/28/2023) Resolved Problems Problem Noted Date Diagnosed Date [...] as of this encounter (statuses as of 10/28/2023) Immunizations Name Administration Dates Next Due Influenza, Whole Virus 01/16/2013,04/20/2011 Pneumococcal Conjugate Vacc, 13 Valent (Prevnar) 03/10/2019 Pneumococcal Conjugate Vacci ne, 20-valent ([id number]) 09/19/2021 Pneumococcal Polysaccharide PPV23 (Pneumovax) 09/08/2015 Season [...] 11/06/2023 11:15 AM EDT Office Visit Urology, [facility] [address] [facility] [place] [address] Zbigniew Holder MD [address] [place] [address] 11/27/2023 9:40 AM EDT Office Visit Family [address] [place] [phone] Melissa Hand MD [address] [place] [address] [place] [address] 01/03/2024 1:00 PM EDT Office Visit Family [address] [place] [phone] Mony Reid [address] [place] [address] 01/17/2024 10:00 AM EDT Office Visit Hepatology, [facility] [place] [address] Jaclyn Jay MD [address] [place] [address] 01/24/2024 9:30 AM EDT Cardiac Studies Cardiology, [facility] [address] [facility] [place] [address] [facility] [address] [facility] [place] [address] 02/18/2024 2:45 PM EST Office Visit Hematology/Oncology [facility] [address] [place] [phone] Blayne Caruso MD [address] [place] [address] 09/09/2024 1:20 PM EDT Office Visit Dermatology [address] [place] [address] Gaby Pitt PA-C [address] [place] [address] [place] [address] Health Maintenance Due Date Last Done Comments Cologuard 1994 Sigmoidoscopy 1994 Hepatitis B Vaccine (1 of 3 - Risk 3-dose series) 2009 Fecal Occult Blood Test 03/06/2020 03/06/2019, 03/09 COVID-19 Vaccine (2022- season) 2022 Mammogram 05/24/2023 05/24/2022, 05/09, 04/24/2021, Additional history exists Diabetic Eye Exam 07/13/2023 07/12/2022, , 05/18/2022, Additional history exists Influenza Vaccine (FLU shot) (#1) 2023 03/08/2023, 01/19/2022, 03/16/2021, Additional history exists GFR 04/23/2024 10/22/2023, 04/1 10/2023, 07/17/2023, Additional history exists HbA1c 04/23/2024 10/22/2023, 03/0 11/2023, 11/08/2022, Additional history exists PTH 06/21/2024 06/22/2023, 03/0 05/2022, 02/22/2022, Additional history exists Hgb 07/23/2024 07/24/2023, 041 , 06/22/2023, Additional history exists Depression Monitoring [...] Documents on File Type Date Recorded Patient 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
--- OUTSIDE RECORDS SUMMARY | 2023-12-30 03:16 | External Medical Summary | Summary of Care ---
Author Name Unknown Organization [facility] Address [address] [place] [place] [address] Phone [phone] Care Team Providers Care Surgery Attendant Name Role Phone Melissa Hand MD Primary Care Prov ider Encounter Details Date Type Department Care Team (Late st Contact Info) Description 11/06/2023 11:15 AM EDT Office Visit Urology, [facility] [address] [facility] [place] [address] Zbigniew Holder MD [address] [place] [address] Recurrent UTI* Allergies Active Allergy Reactions Criticality Noted Date Comments Lisinopril Cough Low 04/25/2020 High potassium documented as of this encounter (statuses as of 11/06/2023) Medications Medication Sig Dispensed Refills Start Date [...] Oral Tablet Chewable Once per daily 08/08/2022 Active Ketoconazole 2 % External CreamIndications:S eborrheic [...] 05/18/2023 Active Mirtazapine 15 MG Oral Tablet (Remeron)Indicatio ns:Recurrent major depressive disorder, in full remission (HCC),Poor appetite TAKE ONE TABLET BY MOUTH AT BEDTIME 30 Tablet 5 05/22/2023 Active Sertraline HCl 100 MG Oral Tablet (Zoloft)Indication s:Recurrent major depressive disorder, in full remission (HCC) Take 1.5 Tablets by mouth at bedtime. 135 Tablet 1 06/22/2023 Active ALPRAZolam 0.25 MG Oral Tablet (Xanax)Indications [...] disease, with long-term current use of insulin ([facility]) test blood sugar 3 times daily dx e11.22 300 Strip 1 07/31/2023 Active Gabapentin 100 MG Oral Capsule (Neurontin)Indicat ions:Coccyx pain,Sacral back pain TAKE ONE CAPSULE BY MOUTH EVERY DAY 90 Capsule 10/07/2023 Active Torsemide 10 MG Oral Tablet (Demadex)Indicatio ns:Anemia of chronic renal failure, stage 4 (severe) ([facility]) Take 2 Tablets by mouth in the morning. 90 Tablet 3 10/25/2023 Active Metoprolol Succinate ER 50 MG Oral Tablet Extended Release 24 Hour (toPROL XL)Indications:Chr onic systolic congestive heart failure ([facility]) TAKE ONE TABLET BY MOUTH IN THE MORNING AND BEFORE BEDTIME 180 Tablet 1 10/27/2023 Active Ketoconazole 2 % External Shampoo (Nizoral)Indicatio ns:Seborrheic dermatitis massage into scalp and rinse out after five to ten minutes, do 3 times weekly then apply clindamycin gel to open sores if needed 360 mL 2 11/04/2023 Active Sulfamethoxazole-T rimethoprim 800-160 MG Oral Tablet (Bactrim DS) Take 1 Tablet by mouth in the morning and 1 Tablet before bedtime. Use as directed.. 14 Tablet 3 11/06/2023 Active Sulfamethoxazole-T rimethoprim 800-160 MG Oral Tablet (Bactrim DS) Take 1 Tablet by mouth in the morning and 1 Tablet before bedtime. Use as directed.. 14 Tablet 09/30/2023 Discontinue d(Refill) documented as of this encounter (statuses as of 11/06/2023) Active Problems Problem Noted Date Diagnosed Date [...] as of this encounter (statuses as of 11/06/2023) Resolved Problems Problem Noted Date Diagnosed Date [...] as of this encounter (statuses as of 11/06/2023) Immunizations Name Administration Dates Next Due Influenza, Whole Virus 01/16/2013,04/20/2011 Pneumococcal Conjugate Vacc, 13 Valent (Prevnar) 03/10/2019 Pneumococcal Conjugate Vacci ne, 20-valent ([id number]) 09/19/2021 Pneumococcal Polysaccharide PPV23 (Pneumovax) 09/08/2015 Season [...] No 08/05/2023 Does the household have a [facility] source of income? (Household - for ages [...] on file documented as of this encounter Progress Notes * Zbigniew Holder MD - 11/06/2023 11:36 AM EDT [id number] PCP: MELISSA HAND RAJI [address] [place] [address] [place] [address] Radha Ribera is a 73 year old female, who presents for 4 month follow-up of her history of recurrent UTI. She notes a fall and head injury, no intervention needed. She notes rehab and was found to have UTI. Patient is here today with her son who assists with her care. He notes that she seems to have developed her most recent UTI after discharge from rehabilitation characterized by confusion. Overall, he feels patient is doing better than previous baseline. Renal ultrasound results reviewed demonstrating no clear nidus for infection. Incontinence: Changes diaper 3-4 times daily. Recurrent UTI: Presented to Urology June 2023. Treated with Bactrim, Cefdnir in the past. Has 2-4 UTIs a year. Renal US Sep 2023: IMPRESSION Medical renal disease. UC&S Mar 2023: Culture Growth 10,000 to 100,000 colonies/mL Proteus mirabilis Abnormal UC&S Jul 2023: Culture Growth >100,000 colonies/mL Escherichia coli Abnormal <10,000 colonies/ml mixed normal aneudy Resulting Agency: Susceptibility Escherichia coli [employer] Ampicillin Resistant Ampicillin/Sulbactam Intermediate Cefazolin Susceptible Cefepime Susceptible Ceftriaxone Susceptible Ciprofloxacin Susceptible 1 Gentamicin Susceptible Levofloxacin Susceptible 2 Nitrofurantoin Susceptible Piperacillin Tazobactam Susceptible Trimeth/Sulfamethoxazole Resistant UC&S Sep 2023: Culture Growth >100,000 colonies/mL Escherichia coli Abnormal <10,000 colonies/ml mixed normal aneudy Resulting Agency: Susceptibility Escherichia coli [employer] Ampicillin Resistant Ampicillin/Sulbactam Intermediate Cefazolin Susceptible Cefepime Susceptible Ceftriaxone Susceptible Ciprofloxacin Susceptible 1 Gentamicin Susceptible Nitrofurantoin Susceptible Piperacillin Tazobactam Susceptible Trimeth/Sulfamethoxazole Susceptible Creatinine Results: Lab Results Component Value Date/Time CREATININE - [facility] 1.5 (H) 10/22/2023 09:42 AM CREATININE - [facility] 1.8 (H) 07/24/2023 06:20 AM CREATININE - [facility] 1.8 (H) 07/17/2023 02:31 PM CREATININE - [facility] 1.8 (H) 04/25/2020 02:16 PM CREATININE - [facility] 1.8 (H) 11/16/2019 02:03 PM CREATININE - [facility] 1.7 (H) 11/13/2019 03:10 PM CREATININE, RANDOM URINE - [facility] 47 10/22/2023 09:53 AM CREATININE, RANDOM URINE - [facility] 62 12/31/2022 01:25 PM CREATININE, RANDOM URINE - [facility] 123 11/08/2022 10:39 AM CREATININE, RANDOM URINE - [facility] 112 11/16/2019 02:03 PM CREATININE, RANDOM URINE - [facility] 67 05/11/2019 12:42 PM CREATININE, RANDOM URINE - [facility] 108 03/27/2019 02:10 PM CREATININE-[facility] 1.93 (A) 11/07/2019 12:00 AM CREATININE-[facility] 1.67 (A) 03/09/2019 12:00 AM CREATININE-[facility] 2.17 (A) 03/04/2019 12:00 AM Current Outpatient Medications Medication Sig Dispense Refill Acetaminophen 325 MG Oral Tablet Take 2 Tablets by mouth every 4 hours as needed. 100 Tab 0 nitroglycerin (NITROSTAT) 0.[address] 1 Tab under the tongue as needed for Pain, Chest. May repeat 3 times. If chest pain continues, call 911. 25 Tab 0 Lancets MISC Test 3 times daily E11.9 100 Each 5 OneTouch Delica Lancets 33G MISC Test 3 times daily. E11.9 100 Each 5 Vitamin D3 25 MCG (1000 UT) Oral Tablet (Vitamin D3) Take 1 Tablet by mouth in the morning. Cranberry 50 MG Oral Tablet Chewable Once per daily Ketoconazole 2 % External Cream Apply 2x daily to rash on face until resolved, then when flaring 60g 2 BD Pen Needle Raquel U/F 32G X 4 MM (Insulin Pen Needle) use with insulin and victoza--2 needles per day 200 Each 3 Basaglar KwikPen 100 UNIT/ML Subcutaneous Solution Pen-injector (Insulin Glargine Solostar) inject 15 units under the skin at bedtime 15 mL 1 Trulicity 1.5 MG/0.5ML Subcutaneous Solution Pen-injector (Dulaglutide) Inject 1.5 mg under the skin once a week. (Patient not taking: Reported on 10/25/2023) 2 mL 5 Trulicity 0.75 MG/0.5ML Subcutaneous Solution Pen-injector (Dulaglutide) Inject 0.75 mg under the skin once a week. 2 mL 11 Aspirin Low Dose 81 MG Oral Tablet Delayed Release (aspirin enteric coated) TAKE ONE TABLET BY MOUTH EVERY DAY 90 Tablet 3 Mirtazapine 15 MG Oral Tablet (Remeron) TAKE ONE TABLET BY MOUTH AT BEDTIME 30 Tablet 5 Sertraline HCl 100 MG Oral Tablet (Zoloft) Take 1.5 Tablets by mouth at bedtime. 135 Tablet 1 ALPRAZolam 0.25 MG Oral Tablet (Xanax) Take 1 Tablet by mouth daily as needed for Anxiety or Agitation. 4 Tablet 0 Isosorbide Dinitrate 10 MG Oral Tablet (Isordil) TAKE ONE TABLET BY MOUTH TWICE DAILY AT 0700 AND 1200 FOR 30 DAYS 60 Tablet 5 Rosuvastatin Calcium 10 MG Oral Tablet (Crestor) Take 1 Tablet by mouth in the morning. 90 Tablet 1 OneTouch Verio In Vitro Strip (Glucose Blood) test blood sugar 3 times daily dx e11.22 300 Strip 1 Sulfamethoxazole-Trimethoprim 800-160 MG Oral Tablet (Bactrim DS) Take 1 Tablet by mouth in the morning and 1 Tablet before bedtime. Use as directed.. (Patient not taking: Reported on 10/25/2023) 14 Tablet 0 Gabapentin 100 MG Oral Capsule (Neurontin) TAKE ONE CAPSULE BY MOUTH EVERY DAY 90 Capsule 0 Torsemide 10 MG Oral Tablet (Demadex) Take 2 Tablets by mouth in the morning. 90 Tablet 3 Metoprolol Succinate ER 50 MG Oral Tablet Extended Release 24 Hour (toPROL XL) TAKE ONE TABLET BY MOUTH IN THE MORNING AND BEFORE BEDTIME 180 Tablet 1 Ketoconazole 2 % External Shampoo (Nizoral) massage into scalp and rinse out after five to ten minutes, do 3 times weekly then apply clindamycin gel to open sores if needed 360 mL 2 No current facility-administered medications for this visit. Review of patient's allergies indicates: Allergen Reactions Lisinopril Cough High potassium Social History: Social History Tobacco Use Smoking status: Never Smokeless tobacco: Never Substance Use Topics Alcohol use: Never Vaping/E-Cigarette Use Vaping/E-Cigarette Use Never User Vaping/E-Cigarette Substances Nicotine No Other No Flavoring No THC No Cannabidiol (CBD) No Vaping/E-Cigarette Devices Disposable No Pre-filled or Refillable Cartridge No Refillable Tank No Pre-filled Pod No Family History Problem Relation Name Age of Onset Breast Cancer Aunt (Maternal) Renal Hx Mother ESRD, in her late 70s Diabetes Mother Other (Unknown) Father Heart attack Sister Rubina in her 50s Diabetes Brother Jericho Other (HIV) Brother Agustin Past Surgical History: Procedure Laterality Date ADULT ECHOCARDIOGRAM 02/04/2019 mildly dilated LA and LV. severe global dyskineis of LV, LV systolic function severely reduced. LVEF 20 to 25%. mild , moderate MR. [facility] COLONOSCOPY, DIAGNOSTIC (RECTUM) N/A 09/14/2019 biopsies show adenomatous polyps/recall 5 years/Colonoscopy/[facility] EGD, FLEXIBLE, DIAGNOSTIC N/A 09/14/2019 tu holder grade III erosive esophagitis/non-bleeding gastric ulcers/biopsies show mild irritation of stomach/repeat 8 wks/EGD/[facility] LIGATE/CUT OVIDUCT(S) 1985 SINGLE-LEAD DEFIBRILLATOR + REPROGRAM 2016 Past Medical History: Diagnosis Date AICD (automatic cardioverter/defibrillator) present Anxiety Aortic stenosis CKD (chronic kidney disease), stage IV (HCC) Depression DM (diabetes mellitus), type 2, uncontrolled, with renal complications Dyslipidemia Essential hypertension with goal blood pressure less than 130/80 03/13/2016 GERD without esophagitis HTN, goal below 130/80 Hyperkalemia Hyperlipidemia LDL goal <70 Ischemic cardiomyopathy 04/19/2016 Mild dementia (HCC) 09/25/2019 Moderate mitral regurgitation by prior echocardiogram Non-STEMI (non-ST elevated myocardial infarction) (HCC) Pneumonia involving right lung Pneumonia involving right lung Sleep apnea, obstructive Patient Active Problem List Diagnosis Essential hypertension with goal blood pressure less than 130/80 Non-rheumatic mitral regurgitation Systolic congestive heart failure (HCC) Anemia of chronic renal failure, stage 4 (severe) (HCC) Ischemic cardiomyopathy DM (diabetes mellitus), type 2, uncontrolled, with renal complications ALBARO (generalized anxiety disorder) Dyslipidemia, goal LDL below 70 GERD without esophagitis CKD (chronic kidney disease), stage IV (HCC) AICD (automatic cardioverter/defibrillator) present 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) Type 2 diabetes mellitus with stage 4 chronic kidney disease, with long-term current use of insulin(HCC) Recurrent major depressive disorder, in full remission (HCC) JEREMIE (obstructive sleep apnea) Nocturnal hypoxemia Tension headache Slow transit constipation Mixed incontinence Abnormal results of liver function studies Pancytopenia (HCC) Other cirrhosis of liver (HCC) Skin ulcer of sacrum, limited to breakdown of skin (HCC) Constitutional: (+) fatigue ENT: (+) hoarseness Female : (+) see HPI Musculoskeletal: (+) muscle weakness Skin: (+) history of ulcer Neurology: (+) loss of balance Psychiatry: (+) depression Abdominal/GI: (+) constipation or change in bowel pattern Physical Exam Nursing note reviewed. Constitutional: General: She is not in acute distress. Appearance: She is not ill-appearing or toxic-appearing. Comments: Using walker HENT: Head: Normocephalic. Right Ear: External ear normal. Left Ear: External ear normal. Nose: Nose normal. Mouth/Throat: Mouth: Mucous membranes are moist. Eyes: Extraocular Movements: Extraocular movements intact. Cardiovascular: Pulses: Normal pulses. Pulmonary: Effort: Pulmonary effort is normal. No respiratory distress. Abdominal: General: There is no distension. Skin: Coloration: Skin is not pale. Neurological: Mental Status: She is oriented to person, place, and time. Motor: Weakness present. Gait: Gait abnormal. Psychiatric: Mood and Affect: Mood normal. Behavior: Behavior normal. Impression/Plan: 73-year-old female with a history of recurrent urinary tract infection. Overall, patient and son feel that she is doing better with p.r.n. urine cultures and self start Bactrim. They note that the antibiotic prescription was discontinued, reasons unclear. Refill of urineculture and Bactrim provided. Will see the patient in 4 months to check on symptoms. Contact us sooner with any significant urinary deterioration. Above content is personally reviewed. Patient vocalizes good understanding of the treatment plan. Zbigniew Holder MD 11:36 AM 11/06/2023 documented in this encounter Nursing Notes * Abbey Cain LPN - 11/06/2023 11:23 AM EDT 4 month ret Recurrent UTI documented in this encounter Plan of Treatment Upcoming Encounters Date Type Department Care Team (Late st Contact Info) Description 11/27/2023 9:40 AM EDT Office Visit Family Medicine [address] [place] [phone] Melissa Hand MD [address] [place] [address] [place] [phone] 01/03/2024 1:00 PM EDT Office Visit Family Medicine [address] [place] [phone] Mony Reid [address] [place] [address] 01/17/2024 10:00 AM EDT Office Visit Hepatology, [facility] [address] [place] [address] Jaclyn Jay MD [address] [place] [phone] 01/24/2024 9:30 AM EDT Cardiac Studies Cardiology, [address] [place] [address] [facility] 132 [facility] [place] [address] 02/18/2024 2:45 PM EST Office Visit Hematology/Oncology [facility] 200 [facility] [place] [address] Blayne Caruso MD [address] [place] [address] 03/09/2024 3:45 PM EST Office Visit Urology, [facility] 132 [place] [address] Zbigniew Holder MD 27 [place] [address] 06/09/2024 2:20 PM EST Office Visit Nephrology [address] [place] [address] Nancy Shahid MD [address] [place] [address] 09/09/2024 1:20 PM EDT Office Visit Dermatology [address] [place] [address] Gaby Pitt PA-C [address] [place] [address] [place] [id number] Scheduled Orders Name Type Priority Associated Diagnoses Orde r Schedule CULTURE, URINE, QUANTITATIVE Lab Routine Recurrent UTI 6 Occurrences starting 11/06/2023 until 11/05/2024 Health Maintenance Due Date Last Done Comments [...] of this encounter Visit Diagnoses Diagnosis Recurrent UTI- Primary Urinary tract infection, site not specified documented in this encounter Advance Directives Documents on File Type Date Recorded 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
--- OUTSIDE RECORDS SUMMARY | 2023-12-30 03:16 | External Medical Summary | Summary of Care ---
Author Name Unknown Organization [facility] Address [address] [facility] [place] [address] Phone [phone] Care Team Providers Care Operational Intelligence Analyst Name Role Phone Melissa Hand MD Primary Care Prov ider Reason for Visit * Reason Comments eRx-Medication Refill Encounter Details Date Type Department Care Team (Late st Contact Info) Description 11/01/2023 Refill Dermatology [address] [place] [address] Gaby Pitt PA-C [address] [place] [address] [place] [phone] Seborrheic dermatitis Allergies Active Allergy Reactions Criticality Noted Date Comments Lisinopril Cough Low 04/25/2020 High potassium documented as of this encounter (statuses as of 11/04/2023) Medications Medication Sig Dispensed Refills Start Date [...] EVERY DAY 90 Tablet 3 4 Active Mirtazapine 15 MG Oral Tablet (Remeron)Indicatio ns:Recurrent major depressive disorder, in full remission (HCC),Poor appetite TAKE ONE TABLET BY MOUTH AT BEDTIME 30 Tablet 5 4 Active Sertraline HCl 100 MG Oral Tablet (Zoloft)Indication s:Recurrent major depressive disorder, in full remission (HCC) Take 1.5 Tablets by mouth at bedtime. 135 Tablet 1 4 Active ALPRAZolam 0.25 MG Oral Tablet (Xanax)Indications :Irritability Take 1 Tablet by mouth daily as needed for Anxiety or Agitation. 4 Tablet 03/16/202 4 Active Isosorbide Dinitrate 10 MG Oral [...] disease, with long-term current use of insulin ([facility]) test blood sugar 3 times daily dx e11.22 300 Strip 1 4 Active Sulfamethoxazole-T rimethoprim 800-160 MG Oral Tablet (Bactrim DS) Take 1 Tablet by mouth in the morning and 1 Tablet before bedtime. Use as directed.. 14 Tablet 4 Active Additional Information Patient not taking.Reported on 10/25/2023 Gabapentin 100 MG Oral Capsule (Neurontin)Indicat ions:Coccyx [...] (toPROL XL)Indications:Chr onic systolic congestive heart failure (HCC) TAKE ONE TABLET BY MOUTH IN THE MORNING AND BEFORE BEDTIME 180 Tablet 1 4 Active Ketoconazole 2 % External Shampoo (Nizoral)Indicatio ns:Seborrheic dermatitis massage into scalp and rinse out after five to ten minutes, do 3 times weekly then apply clindamycin gel to open sores if needed 360 mL 2 4 Active Ketoconazole 2 % External Shampoo (Nizoral)Indicatio ns:Seborrheic dermatitis MASSAGE INTO SCALP AND RINSE OUT AFTER FIVE TO TEN MINUTES, DO 3 TIMES WEEKLY THEN APPLY CLINDAMYCIN GEL TO OPEN SORES IF NEEDED 360 mL 2 3 11/04/19 24 Discontinued documented as of this encounter (statuses as of 11/04/2023) Active Problems Problem Noted Date Diagnosed Date [...] as of this encounter (statuses as of 11/04/2023) Resolved Problems Problem Noted Date Diagnosed Date [...] as of this encounter (statuses as of 11/04/2023) Immunizations Name Administration Dates Next Due Influenza, Whole Virus 01/16/2013,04/20/2011 Pneumococcal Conjugate Vacc, 13 Valent (Prevnar) 03/10/2019 Pneumococcal Conjugate Vacci ne, 20-valent ([id number]) 09/19/2021 Pneumococcal Polysaccharide PPV23 (Pneumovax) 09/08/2015 Season [...] No 08/05/2023 Does the household have a [facility] source of income? (Household - for ages [...] encounter Miscellaneous Notes * Telephone Encounter - Mia Guajardo PA-C - 11/04/2023 9:42 AM EDT Signed Prescriptions: Disp Refills Ketoconazole 2 % External Shampoo (Nizoral)360 mL 2 Sig: massageinto scalp and rinse out after five to ten minutes, do 3 times weekly then apply clindamycin gel toopen sores if neededAuthorizing Provider: MIA GUAJARDO * Telephone Encounter - Danay Knutson LPN - 11/04/2023 9:26 AM EDTPending Prescriptions: Disp Refills Ketoconazole 2 % External Shampoo (Nizoral)360 mL 2 Sig: massage into scalp and rinse out after five to ten minutes, do 3 times weekly then apply clindamycin gel to open sores if needed * Telephone Encounter - Danay Knutson LPN - 11/04/2023 9:26 AM EDT Pending Prescriptions: Disp Refills Ketoconazole 2 % External Shampoo (Nizora*360 mL 2 Sig: massage into scalp and rinse out after five to ten minutes, do 3 times weekly then apply clindamycin gel to open sores if needed 08/22/2022 (in office), Visit date not found (telemedicine) 09/09/2024 Patient Phone Numbers Labs: Lab Results Component Value Date/Time CREAT 1.5 (H) 10/22/2023 09:42 AM CREAT 1.8 (H) 04/25/2020 02:16 PM POTASSIUM 4.6 10/22/2023 09:42 AM POTASSIUM 5.3 (H) 04/25/2020 02:16 PM TSH 2.15 08/26/2019 03:00 PM LDLCALC 30 06/14/2023 08:40 AM LDLCALC 74.40 05/27/2018 12:00 AM LDLCALC 74.40 05/27/2018 12:00 AM LDLDIRECT 39 03/30/2021 12:35 PM LDLDIRECT 46 04/25/2020 02:16 PM ALT 28 06/14/2023 08:40 AM ALT 18 03/13/2019 11:20 AM HGBA1C 7.7 (H) 10/22/2023 09:42 AM HGBA1C 6.4 (H) 04/25/2020 02:16 PM * Telephone Encounter - Interface, E-Rx Ss Inbound - 11/03/2023 9:46 PM EDT Pending Prescriptions: Disp Refills Ketoconazole 2 % External Shampoo [Pharmac*360 mL 0 Sig: MASSAGE INTO SCALP AND RINSE OUT AFTER FIVE TO TEN MINUTES, DO 3 TIMES WEEKLY THEN APPLY CLINDAMYCIN GEL TO OPEN SORES IF NEEDED documented in this encounter Plan of Treatment Upcoming Encounters Date Type Department Care Team (Late st Contact Info) Description 11/06/2023 11:15 AM EDT Office Visit Urology, [facility] 132 [facility] [place] [address] Zbigniew Holder MD 27 [place] [address] 11/27/2023 9:40 AM EDT Office Visit Family Medicine [address] [place] [phone] Melissa Hand MD [address] [place] [address] [place] [phone] 01/03/2024 1:00 PM EDT Office Visit Family Medicine [address] [place] [phone] Mony Reid CRNP [address] [place] [address] [place] [address] 01/17/2024 10:00 AM EDT Office Visit Hepatology, [facility] 132 [facility] [place] [address] Jaclyn Jay MD [address] [place] [address] 01/24/2024 9:30 AM EDT Cardiac Studies Cardiology, [facility] 132 [facility] [place] [address] [facility] 132 [facility] [place] [address] 02/18/2024 2:45 PM EST Office Visit Hematology/Oncology [facility] 200 [facility] [place] [phone] Blayne Caruso MD 200 [facility] [place] [address] 06/09/2024 2:20 PM EST Office Visit Nephrology [address] [place] [address] Nancy Shahid MD 200 [facility] [place] [address] 09/09/2024 1:20 PM EDT Office Visit Dermatology [address] [place] [address] Gaby Pitt PA-C [address] [place] [address] [place] [address] Health Maintenance Due Date Last Done Comments [...] 02/22/2022, Additional history exists Hgb 07/23/2024 07/24/2023, 1 , 06/22/2023, Additional history exists Depression Monitoring [...] as of this encounter Visit Diagnoses Diagnosis Seborrheic dermatitis Seborrheic dermatitis, unspecified documented in this encounter Advance Directives Documents on File Type Date Recorded 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
--- OUTSIDE RECORDS SUMMARY | 2023-12-30 03:16 | External Medical Summary | Summary of Care ---
Author Name Unknown Organization [facility] Address [address] [place] [address] Phone [phone] Care Team Providers Care Cigarette Seller Name Role Phone Melissa Hand MD Primary Care Prov ider Reason for Visit * Reason Onset Date Comments case management 10/30/2023 Encounter Details Date Type Department Care Team (Late st Contact Info) Description 10/30/2023 Telephone Care Coordination and Integration [address] [place] [address] Corinne Grace, SUNSHINE [address] [place] [address] case management Allergies Active Allergy Reactions Criticality Noted Date Comments Lisinopril Cough Low 04/25/2020 High potassium documented as of this encounter (statuses as of 10/30/2023) Medications Medication Sig Dispensed Refills Start Date [...] disease, with long-term current use of insulin ([facility]) test blood sugar 3 times daily dx [...] as of this encounter (statuses as of 10/30/2023) Active Problems Problem Noted Date Diagnosed Date [...] as of this encounter (statuses as of 10/30/2023) Resolved Problems Problem Noted Date Diagnosed Date [...] as of this encounter (statuses as of 10/30/2023) Immunizations Name Administration Dates Next Due Influenza, Whole Virus 01/16/2013,04/20/2011 Pneumococcal Conjugate Vacc, 13 Valent (Prevnar) 03/10/2019 Pneumococcal Conjugate Vacci ne, 20-valent ([id number]) 09/19/2021 Pneumococcal Polysaccharide PPV23 (Pneumovax) 09/08/2015 Season [...] encounter Miscellaneous Notes * Telephone Encounter - Corinne Grace RN - 10/30/2023 7:28 AM EDT Please discharge the patient from [facility] ([facility]). Device(s)/IVR to be discontinued: PDIVR CALLS due to COMPLETION. Thank you. documented in this encounter Plan of Treatment Upcoming Encounters Date Type Department Care Team (Late st Contact Info) Description 11/06/2023 11:15 AM EDT Office Visit Urology, [facility] 132 [facility] [place] [address] Zbigniew Holder MD 27 [place] [address] 11/27/2023 9:40 AM EDT Office Visit Family [address] [phone] Melissa Hand MD [address] [place] [address] [place] [address] 01/03/2024 1:00 PM EDT Office Visit Family [address] [place] [phone] Mony Reid CRNP [address] [place] [address] [place] [address] 01/17/2024 10:00 AM EDT Office Visit Hepatology, [facility] 132 [facility] [place] [address] Jaclyn Jay MD [address] [place] [address] 01/24/2024 9:30 AM EDT Cardiac Studies Cardiology, [facility] 132 [facility] [place] [address] Serene Pacer [facility] 132 [place] [address] 02/18/2024 2:45 PM EST Office Visit Hematology/Oncology [facility] [address] [place] [phone] Blayne Caruso MD 200 [facility] [place] [address] 06/09/2024 2:20 PM EST Office Visit Nephrology [address] [place] [address] Nancy Shahid MD [address] [place] [address] 09/09/2024 1:20 PM EDT Office Visit Dermatology [address] [place] [address] Gaby Pitt PA-C [address] [place] [address] [place] [address] Health Maintenance Due Date Last Done Comments [...] Documents on File Type Date Recorded Patient Component Overhaul Operator Expl anation POLST 12/20/2022 2:13 PM POLST (Rosen ited DNR) Care Teams Cigarette Seller Relationship Specialty Start Date End Date Melissa Hand MD [address] [place] [address] [place] [phone] PCP - General Family Medicine 03/11/19 documented as of this encounter
--- OUTSIDE RECORDS SUMMARY | 2023-12-30 03:16 | External Medical Summary | Summary of Care ---
Author Name Unknown Organization [facility] Address [address] [facility] [address] Phone [phone] Care Team Providers Care Oil Dispenser Name Role Phone Melissa Hand MD Primary Care Prov ider Encounter Details Date Type Department Care Team (Late st Contact Info) Description 12/10/2023 Telephone Urology, [facility] 132 [facility] [place] [address] Zbigniew Holder MD 27 [...] renal failure, stage 4 (severe) ([facility]) Take 2 Tablets by mouth in [...] (Prevnar) 03/10/2019 Pneumococcal Conjugate Vacci ne, 20-valent ([id number]) 09/19/2021 Pneumococcal Polysaccharide PPV23 (Pneumovax) 09/08/2015 Season [...] encounter Miscellaneous Notes * Telephone Encounter - Marsha Rowley OSA [...] 1:00 PM EDT Office Visit Family Medicine [address] [phone] Mony Reid [address] [place] [address] 01/17/2024 10:00 AM EDT Office Visit Hepatology, [facility] 132 [place] [address] Jaclyn Jay MD [address] [place] [address] 01/24/2024 9:30 AM EDT Cardiac Studies Cardiology, [facility] 132 [place] [address] [facility] 132 [facility] [place] [address] 02/18/2024 2:45 PM EST Office Visit Hematology/Oncology [facility] Hen[facility]y [address] [place] [phone] Blayne Caruso MD 200 [facility] [place] [address] 03/09/2024 3:45 PM EST Office Visit Urology, [facility] 132 [address] [place] [address] Zbigniew Holder MD [address] [place] [address] 03/16/2024 8:00 AM EST Office Visit Family Medicine [address] [place] [phone] Melissa Hand MD [address] [place] [address] [place] [address] 06/09/2024 2:20 PM EST Office Visit Nephrology [address] [place] [address] [facility]id MD 200 [facility] [address] 09/09/2024 1:20 PM EDT Office Visit Dermatology [address] [place] [address] Gaby Pitt PA-C [address] [place] [address] [place] [address] Health Maintenance Due Date Last Done Comments [...] Documents on File Type Date Recorded Patient Transition Coach Expl anation POLST 12/20/2022 2:13 PM POLST (Rosen ited DNR) Care Teams Oil Dispenser Relationship Specialty Start Date End Date Melissa Hand MD [address] [place] [address] [place] [address] PCP - General Family Medicine 03/11/19 documented as of this encounter
--- OUTSIDE RECORDS SUMMARY | 2023-12-30 03:16 | External Medical Summary ---
Author Name Unknown Address Unknown Organization K01:[facility] - [address] [facility] [address] Laboratory Report Ordering Provider Test Date Status CLINTON FRANKLIN 12/05/2023 09:10:30 Final <10,000 colonies/ml mixed no rmal aneudy Observation Date Value Abnormality Reference (Units ) Status Bacteria identified in Specimen by Culture 12/05/2023 09:10:30 [id number]^ESCHE RICHIA COLI Abnormal Final >100,000 colonies/mL Escheri kate coli Performing Location [facility] - [address] [facility] [facility] [address] Ordering Provider Test Date Status CLINTON FRANKLIN 12/05/2023 09:10:30 Final Observation Date Value Abnormality Reference (Units ) Status Ampicillin 12/05/2023 09:10:30 >=32 Resistant Final Ampicillin + Sulbactam 12/05/2023 09:10:30 >=32 Resistant Final Cefazolin 12/05/2023 09:10:30 <=4 Susceptible Final Cefepime susceptibility 12/05/2023 09:10:30 <=1 Susceptible Final Ceftriaxone suceptibility 12/05/2023 09:10:30 <=1 Susceptible Final Ciprofloxacin 12/05/2023 09:10:30 <=0.25 Susceptible Final Due to serious side effects, the FDA has advised against using Ciprofloxacin to treat uncomplicated UTIs and respiratory tract infections unless there are no alternative treatment options. Gentamicin susceptibility 12/05/2023 09:10:30 <=1 Susc eptible Final Nitrofurantoin susceptibility 12/05/2023 09:10:30 <=16 Susceptible Final Piperacillin + Tazobactamsusceptibility 12/05/2023 09:10:30 <=4 Susceptible Final TMP-SMZ susceptibility 12/05/2023 09:10:30 <=20 Suscept ible Final Test: Culture, Urine, Quanti tative
Specimen Source: Urine, Clean Catch
Specimen Type: Urine
Specimen Date: 12/05/2023 0910
Result Date: 12/10/2023 1226
Result Status: Final result
Abnormal: Yes
Resulting Lab: [facility]
[address] [place] [address]

CULTURE

>100,000 colonies/mL Escherichia coli (Abnormal)

<10,000 colonies/ml mixed normal aneudy

SUSCEPTIBILITY

Escherichia coli
METHOD MICROBROTH
DILUTIONS

AMPICILLIN >=32 Resistant
AMPICILLIN/SULBACTAM >=32 Resistant
CEFAZOLIN <=4 Susceptible
CEFEPIME <=1 Susceptible
CEFTRIAXONE <=1 Susceptible
CIPROFLOXACIN <=0.25 Susceptible
[1]
GENTAMICIN <=1 Susceptible
NITROFURANTOIN <=16 Susceptible
PIPERACILLIN TAZOBACTAM <=4 Susceptible
TRIMETH/SULFAMETHOXAZOLE <=20 Susceptible

[1] Due to serious side effects, the FDA has advised against using
Ciprofloxacin to treat uncomplicated UTIs and respiratory tract infections
unless there are no alternative treatment options.

null Performing Location [facility] - [address] [facility] [place]. [facility] [address]
--- OUTSIDE RECORDS SUMMARY | 2023-12-30 03:16 | External Medical Summary | Summary of Care ---
Author Name Unknown Organization [facility] Address [address] [facility] [address] Phone [phone] Care Team Providers Care Guest Service Agent Name Role Phone Melissa Hand MD Primary Care Prov ider Encounter Details Date Type Department Care Team (Late st Contact Info) Description 12/10/2023 Telephone Urology, [facility] 132 [facility] [place] [address] Zbigniew Holder MD 27 [place] [address] Allergies Active Allergy Reactions Criticality Noted Date Comments Lisinopril Cough Low 04/25/2020 High potassium documented as of this encounter (statuses as of 12/11/2023) Medications Medication Sig Dispensed Refills Start Date [...] of chronic renal failure, stage 4 (severe) ([facility]) Take 2 Tablets by mouth in [...] as of this encounter (statuses as of 12/11/2023) Active Problems Problem Noted Date Diagnosed Date [...] as of this encounter (statuses as of 12/11/2023) Resolved Problems Problem Noted Date Diagnosed Date [...] as of this encounter (statuses as of 12/11/2023) Immunizations Name Administration Dates Next Due Influenza, Whole Virus 01/16/2013,04/20/2011 Pneumococcal Conjugate Vacc, 13 Valent (Prevnar) 03/10/2019 Pneumococcal Conjugate Vacci ne, 20-valent ([id number]) 09/19/2021 Pneumococcal Polysaccharide PPV23 (Pneumovax) 09/08/2015 Season [...] Miscellaneous Notes * Telephone Encounter - Yokasta Flores LPN [...] 1:00 PM EDT Office Visit Family Medicine [address] [phone] Mony [address] [place] [address] 01/17/2024 10:00 AM EDT Office Visit Hepatology, [facility] 132 [facility] [place] [address] Jaclyn Jay MD [address] [place] [address] 01/24/2024 9:30 AM EDT Cardiac Studies Cardiology, [facility] 132 [facility] [place] [address] [facility] 132 [facility] [place] [address] 02/18/2024 2:45 PM EST Office Visit Hematology/Oncology [facility] 200 [facility] [place] [phone] Blayne Caruso MD 200 [facility] [place] [address] 03/09/2024 3:45 PM EST Office Visit Urology, [facility] 132 [facility] [place] [address] Zbigniew Holder MD 27 [place] [address] 03/16/2024 8:00 AM EST Office Visit Family Medicine [address] [phone] Melissa Hand MD [address] [place] [address] [place] [address] 06/09/2024 2:20 PM EST Office Visit Nephrology [address] [place] [address] Nancy Shahid MD [address] [place], [place] [address] [address] 09/09/2024 1:20 PM EDT Office Visit Dermatology [address] [place] [address] Gaby Pitt PA-C [address] [place] [address] [place] [address] Health Maintenance Due Date Last Done Comments [...] 11/08/2022, Additional history exists PTH 06/21/2024 06/22/2023, 030 05/2022, 02/22/2022, Additional history exists Hgb 07/23/2024 [...] Documents on File Type Date Recorded Patient Epoxy Specialist Expl anation POLST 12/20/2022 2:13 PM POLST (Rosen ited DNR) Care Teams Guest Service Agent Relationship Specialty Start Date End Date Melissa Hand MD [address] [place] [address] [place] [address] PCP - General Family Medicine 03/11/19 documented as of this encounter
--- OUTSIDE RECORDS SUMMARY | 2023-12-30 03:16 | External Medical Summary | Summary of Care ---
Author Name Unknown Organization [facility] Address [address] [place] [address] Phone [phone] Care Team Providers Care Violent Crimes Detective Name Role Phone Melissa Hand MD Primary Care Prov ider Encounter Details Date Type Department Care Team (Late st Contact Info) Description 11/03/2023 Telephone Dermatology [facility] [address] [place] [address] Dany Albrecht MD [address] [facility] [place] [address] Allergies Active Allergy Reactions Criticality Noted Date [...] (Prevnar) 03/10/2019 Pneumococcal Conjugate Vacci ne, 20-valent ([id number]) 09/19/2021 Pneumococcal Polysaccharide PPV23 (Pneumovax) 09/08/2015 Season [...] encounter Miscellaneous Notes * Telephone Encounter - Radha Fitzpatrick OSA - 11/04/2023 8:34 AM EDT I believe patient already saw [facility] on 10/31/23. See office note that is scanned in. * Telephone Encounter - Dany Albrecht MD - 11/03/2023 10:28 AM EDT Please assist in scheduling patient a podiatry appointment documented in this encounter Plan of Treatment Upcoming Encounters Date Type Department Care Team (Late st Contact Info) Description 11/06/2023 11:15 AM EDT Office Visit Urology, [facility] 132 [facility] [place] [address] Zbigniew Holder MD 27 [place] [address] 11/27/2023 9:40 AM EDT Office Visit [address] [phone] Melissa Hand MD [address] [place] [address] [place] [address] 01/03/2024 1:00 PM EDT Office Visit [address] [phone] Mony Reid CRNP [address] [place] [address] [place] [address] 01/17/2024 10:00 AM EDT Office Visit Hepatology, [facility] 132 [facility] [place] [address] Jaclyn Jay MD 310 [facility] [place] [address] 01/24/2024 9:30 AM EDT Cardiac Studies Cardiology, [facility] 132 [facility] [place] [address] Movalley Pacer [facility] 132 [facility] [place] [address] 02/18/2024 2:45 PM EST Office Visit Hematology/Oncology [facility] Ann Hennessy [place] [address] [place] [phone] Blayne Caruso MD [address] [place] [address] 06/09/2024 2:20 PM EST Office Visit Nephrology [address] [place] [address] Nancy Shahid MD 200 [facility] [place] [address] 09/09/2024 1:20 PM EDT Office Visit Dermatology [address] [place] [address] Gaby Pitt PA-C [address] [place] [address] [place] [address] Health Maintenance Due Date Last Done Comments [...] Documents on File Type Date Recorded Patient Managing Manager Expl anation POLST 12/20/2022 2:13 PM POLST (Rosen ited DNR) Care Teams Violent Crimes Detective Relationship Specialty Start Date End Date Melissa Hand MD [address] [place] [address] [place] [phone] PCP - General Family Medicine 03/11/19 documented as of this encounter
--- OUTSIDE RECORDS SUMMARY | 2023-12-30 03:16 | External Medical Summary | Summary of Care ---
Author Name Unknown Organization [facility] Address [address] [facility] [place] [address] Phone [phone] Care Team Providers Care Nitro Worker Name Role Phone Melissa Hand MD Primary Care Prov ider Reason for Visit * Reason Comments Outpatient Testing Encounter Details Date Type Department Care Team (Late st Contact Info) Description 12/05/2023 9:10 AM EDT Laboratory Laboratory [address] [place] [phone] , Specimen Drop Off [address] [place] [phone] Recurrent UTI Allergies Active Allergy Reactions Criticality Noted Date Comments Lisinopril Cough Low 04/25/2020 High potassium documented as of this encounter (statuses as of 12/05/2023) Medications Medication Sig Dispensed Refills Start Date [...] disease, with long-term current use of insulin ([facility]) test blood sugar 3 times daily dx e11.22 300 Strip 1 07/31/2023 Active Gabapentin 100 MG Oral Capsule (Neurontin)Indicatio ns:Coccyx pain,Sacral back pain TAKE ONE CAPSULE BY MOUTH EVERY DAY 90 Capsule 10/07/2023 Active Torsemide 10 MG Oral Tablet (Demadex)Indications :Anemia of chronic renal failure, stage 4 (severe) ([facility]) Take 2 Tablets by mouth in the morning. 90 Tablet 3 10/25/2023 Active Metoprolol Succinate ER 50 MG Oral Tablet Extended Release 24 Hour (toPROL XL)Indications:Chron ic systolic congestive heart failure ([facility]) TAKE ONE TABLET BY MOUTH IN THE [...] as of this encounter (statuses as of 12/05/2023) Active Problems Problem Noted Date Diagnosed Date [...] as of this encounter (statuses as of 12/05/2023) Resolved Problems Problem Noted Date Diagnosed Date [...] as of this encounter (statuses as of 12/05/2023) Immunizations Name Administration Dates Next Due Influenza, Whole Virus 01/16/2013,04/20/2011 Pneumococcal Conjugate Vacc, 13 Valent (Prevnar) 03/10/2019 Pneumococcal Conjugate Vacci ne, 20-valent ([id number]) 09/19/2021 Pneumococcal Polysaccharide PPV23 (Pneumovax) 09/08/2015 Season [...] 1:00 PM EDT Office Visit Family Medicine [address] [place] [phone] Mony Reid [address] [place] [address] 01/17/2024 10:00 AM EDT Office Visit Hepatology, [facility] 132 [facility] [place] [address] Jaclyn Jay MD [address] [place] [phone] 01/24/2024 9:30 AM EDT Cardiac Studies Cardiology, [facility] 132 [facility] [place] [address] [facility] 132 [facility] [place] [address] 02/18/2024 2:45 PM EST Office Visit Hematology/Oncology [facility] [place] 200 [facility] [place] [phone] Blayne Caruso MD 200 [facility] [place] [address] 03/09/2024 3:45 PM EST Office Visit Urology, [facility] 132 [facility] [place] [address] Zbigniew Holder MD 27 [facility] [place] [address] 03/16/2024 8:00 AM EST Office Visit Family Medicine [address] [place] [phone] Melissa Hand MD [address] [place] [address] [place] [address] 06/09/2024 2:20 PM EST Office Visit Nephrology [address] [place] [address] Nancy Shahid MD 200 [facility] [place] [address] 09/09/2024 1:20 PM EDT Office Visit Dermatology [address] [place] [address] Gaby Pitt PA-C [address] [place] [address] [place] [address] Pending Results Name Type Priority Associated Diagnoses Date /Time CULTURE, URINE, QUANTITATIVE Lab Routine Recurrent UTI 12/05/2023 9:10 AM EDT Health Maintenance Due Date Last Done Comments Cologuard 1994 Sigmoidoscopy 1994 Hepatitis B Vaccine (1 of 3 - Risk 3-dose series) 2009 Fecal Occult Blood Test 03/06/2020 03/06/2019, 03/09 Adult Wellness Visit 12/29/2021 12/29/2020 COVID-19 Vaccine ( season) 2022 Mammogram 05/24/2023 [...] Additional history exists Nephrology Referral 10/24/2024 10/25/2023, Colonoscopy 09/13/2029 09/14/2019 Colorectal Cancer Screening 09/13/2029 [...] Documents on File Type Date Recorded Patient Website Designer Expl anation POLST 12/20/2022 2:13 PM POLST (Rosen ited DNR) Care Teams Nitro Worker Relationship Specialty Start Date End Date Melissa Hand MD [address] [place] [address] [place] [phone] PCP - General Family Medicine 03/11/19 documented as of this encounter
--- OUTSIDE RECORDS SUMMARY | 2023-12-30 03:16 | External Medical Summary | Summary of Care ---
Author Name Unknown Organization [facility] Address [address] [place] [address] Phone [phone] Care Team Providers Care Streetcar Dispatcher Name Role Phone Melissa Hand MD Primary Care Prov ider Encounter Details Date Type Department Care Team (Late st Contact Info) Description 11/03/2023 Telephone Dermatology [facility] [address] [place] [address] Dany Albrecht MD [address] [place] [facility] [place] [address] Allergies Active Allergy Reactions Criticality Noted Date Comments Lisinopril Cough Low 04/25/2020 High potassium documented as of this encounter (statuses as of 11/03/2023) Medications Medication Sig Dispensed Refills Start Date [...] as of this encounter (statuses as of 11/03/2023) Active Problems Problem Noted Date Diagnosed Date [...] as of this encounter (statuses as of 11/03/2023) Resolved Problems Problem Noted Date Diagnosed Date [...] as of this encounter (statuses as of 11/03/2023) Immunizations Name Administration Dates Next Due Influenza, Whole Virus 01/16/2013,04/20/2011 Pneumococcal Conjugate Vacc, 13 Valent (Prevnar) 03/10/2019 Pneumococcal Conjugate Vacci ne, 20-valent ([id number]) 09/19/2021 Pneumococcal Polysaccharide PPV23 (Pneumovax) 09/08/2015 Season [...] encounter Miscellaneous Notes * Telephone Encounter - Dayn Albrecht MD - 11/03/2023 10:28 AM EDT Please assist in scheduling patient a podiatry appointment documented in this encounter Plan of Treatment Upcoming Encounters Date Type Department Care Team (Late st Contact Info) Description 11/06/2023 11:15 AM EDT Office Visit Urology, [facility] 132 [facility] [place] [address] Zbigniew Holder MD 27 [place] [address] 11/27/2023 9:40 AM EDT Office Visit Family [address] [place] [phone] Melissa Hand MD [address] [place] [address] [place] [address] 01/03/2024 1:00 PM EDT Office Visit Family [address] [place] [phone] Mony Reid CRNP [address] [place] [address] [place] [address] 01/17/2024 10:00 AM EDT Office Visit Hepatology, [facility] 132 [employer] [address] Jaclyn Jay MD [facility] [address] [place] [address] 01/24/2024 9:30 AM EDT Cardiac Studies Cardiology, [address] [place] [address] Natanael Cast [facility] [address] [place] [address] 02/18/2024 2:45 PM EST Office Visit Hematology/Oncology [facility] 200 [facility] [place] [phone] Blayne Caruso MD 200 [facility] [place] [address] 06/09/2024 2:20 PM EST Office Visit Nephrology [address] [place] [address] Nancy Shahid MD 200 [facility] [place] [address] 09/09/2024 1:20 PM EDT Office Visit Dermatology [address] [place] [address] Gaby Pitt PA-C [address] [place] [address] [place] [address] Health Maintenance Due Date Last Done Comments [...] 09/19/2021, Additional history exists Albumin/Creatinine Ratio 10/21/2024 0716/2 024, 12/31/2022, 11/08/2022, Additional history exists Phosphate [...] Documents on File Type Date Recorded Patient Upsetting Machine Operator Expl anation POLST 12/20/2022 2:13 PM POLST (Rosen ited DNR) Care Teams Streetcar Dispatcher Relationship Specialty Start Date End Date Melissa Hand MD [address] [place] [address] [place] [address] PCP - General Family Medicine 03/11/19 documented as of this encounter
--- OUTSIDE RECORDS SUMMARY | 2023-12-30 03:17 | External Medical Summary | Summary of Care ---
Author Name Unknown Organization [facility] Address [address] [facility] [address] Phone [phone] Care Team Providers Care Surveyor Name Role Phone Melissa Hand MD Primary Care Prov ider Reason for Visit * Reason Onset Date Comments Appointment 10/22/2023 Nephrology Encounter Details Date Type Department Care Team (Late st Contact Info) Description 10/22/2023 Telephone Family Medicine [address] [phone] Melissa Hand MD [address] [place] [address] [place] [address] Appointment (Nephrology ) Allergies Active Allergy Reactions Criticality Noted Date Comments Lisinopril Cough Low 04/25/2020 High potassium documented as of this encounter (statuses as of 10/22/2023) Medications Medication Sig Dispensed Refills Start Date [...] IF NEEDED 360 mL 2 08/22/2022 Active Metoprolol Succinate ER 50 MG Oral Tablet Extended Release 24 Hour (toPROL XL)Indications:Chron ic systolic congestive heart failure (HCC) TAKE ONE TABLET BY MOUTH IN THE MORNING AND BEFORE BEDTIME 180 Tablet 3 09/24/2022 Active BD Pen Needle Raquel U/F 32G X 4 MM (Insulin Pen Needle) use with insulin and victoza--2 needles per day 200 Each 3 01/06/2023 Active Torsemide 10 MG Oral Tablet (Demadex) Take 1 tablet in the morning. May take an additional tablet as needed for swelling, fluid retention 90 Tablet 3 01/17/2023 Active Basaglar KwikPen 100 UNIT/ML Subcutaneous Solution Pen-injector (Insulin Glargine Solostar) inject 15 units under the skin at bedtime 15 mL 1 04/23/2023 Active Trulicity 1.5 MG/0.5ML Subcutaneous Solution Pen-injector (Dulaglutide)Indicat ions:Type 2 diabetes mellitus with stage 4 chronic kidney disease, with long-term current use of insulin ([facility]) Inject 1.5 mg under the skin once a week. 2 mL 5 05/10/2023 Active Additional Information Patient not taking.Reported on 10/22/2023 Trulicity 0.75 MG/0.5ML Subcutaneous Solution Pen-injector (Dulaglutide)Indicat ions:Type 2 diabetes mellitus with stage 4 chronic kidney disease, with long-term current use of insulin ([facility]) Inject 0.75 mg under the skin once [...] disease, with long-term current use of insulin ([facility]) test blood sugar 3 times daily dx e11.22 300 Strip 1 07/31/2023 Active Sulfamethoxazole-Tri methoprim 800-160 MG Oral Tablet (Bactrim DS) Take 1 Tablet by mouth in the morning and 1 Tablet before bedtime. Use as directed.. 14 Tablet 09/30/2023 Active Gabapentin 100 MG Oral Capsule (Neurontin)Indicatio ns:Coccyx pain,Sacral back pain TAKE ONE CAPSULE BY MOUTH EVERY DAY 90 Capsule 10/07/2023 Active documented as of this encounter (statuses as of 10/22/2023) Active Problems Problem Noted Date Diagnosed Date [...] as of this encounter (statuses as of 10/22/2023) Resolved Problems Problem Noted Date Diagnosed Date [...] as of this encounter (statuses as of 10/22/2023) Immunizations Name Administration Dates Next Due Influenza, Whole Virus 01/16/2013,04/20/2011 Pneumococcal Conjugate Vacc, 13 Valent (Prevnar) 03/10/2019 Pneumococcal Conjugate Vacci ne, 20-valent ([id number]) 09/19/2021 Pneumococcal Polysaccharide PPV23 (Pneumovax) 09/08/2015 Season [...] encounter Miscellaneous Notes * Telephone Encounter - Tiana Ny OSA - 10/22/2023 10:00 AM EDT Radha saw Dr. 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 Status History Encounter View Encounter Order Questions Question Answer Referral Priority Within 3 days (urgent) documented in this encounter Plan of Treatment Upcoming Encounters Date Type Department Care Team (Late st Contact Info) Description 11/06/2023 11:15 AM EDT Office Visit Urology, [facility] 132 [facility] [place] [address] Zbigniew Holder MD [address] [place] [address] 11/27/2023 9:40 AM EDT Office Visit Family [address] [phone] Melissa Hand MD [address] [place] [address] [place] [address] 01/03/2024 1:00 PM EDT Office Visit [address] [phone] Mony Reid CRNP [address] [place] [address] [place] [address] 01/17/2024 10:00 AM EDT Office Visit Hepatology, [facility] 132 [facility] [place] [address] Jaclyn Jay MD [address] [place] [address] 01/24/2024 9:30 AM EDT Cardiac Studies Cardiology, [facility] 132 [facility] [place] [address] Natanael Cast [facility] 132 [facility] [place] [address] 02/18/2024 2:45 PM EST Office Visit Hematology/Oncology [facility] [place] 200 [facility] [place] [address] Blayne Caruso MD [address] [place] [address] 09/09/2024 1:20 PM EDT Office Visit Dermatology [address] [place] [address] Gaby Pitt PA-C [address] [place] [address] [place] [address] Health Maintenance Due Date Last Done Comments Cologuard 1994 Sigmoidoscopy 1994 Hepatitis B Vaccine (1 of 3 - Risk 3-dose series) 2009 Fecal Occult Blood Test 03/06/2020 03/06/2019, 03/09 COVID-19 Vaccine ( season) 2022 Mammogram 05/24/2023 05/24/2022, 05/09, 04/24/2021, Additional history exists Diabetic Eye Exam 07/13/2023 07/12/2022, , 05/18/2022, Additional history exists Phosphate 11/21/2023 11/20/2022, 08/0 06/2022, 02/22/2022, Additional history exists Influenza Vaccine (FLU shot) (#1) 2023 03/08/2023, 01/19/2022, 03/16/2021, Additional history exists HbA1c 12/15/2023 06/14/2023, 08/0 06/2022, 05/18/2022, Additional history exists Albumin/Creatinine Ratio 01/01/202412/31/2 023, 11/08/2022, 08/10/2022, Additional history exists GFR 01/23/2024 07/24/2023, 1 , 06/14/2023, Additional history exists PTH 06/21/2024 06/22/2023, 03/0 05/2022, 02/22/2022, Additional history exists Hgb 07/23/2024 07/24/2023, 041 , 06/22/2023, Additional history exists Depression Monitoring 07/31/2024 08/01/2023 Diabetic Foot Exam 09/19/2024 09/20/2023, 0 08/08/2022, 09/19/2021, Additional history exists Nephrology Referral 10/21/2024 10/22/2023, 3 Colonoscopy 09/13/2029 09/14/2019 Colorectal Cancer Screening 09/13/2029 [...] Documents on File Type Date Recorded Patient Director Of Physical Security Expl anation POLST 12/20/2022 2:13 PM POLST (Rosen ited DNR) Care Teams Surveyor Relationship Specialty Start Date End Date Melissa Hand MD [address] [place] [address] [place] [address] PCP - General Family Medicine 03/11/19 documented as of this encounter
--- OUTSIDE RECORDS SUMMARY | 2023-12-30 03:17 | External Medical Summary | Summary of Care ---
Author Name Unknown Organization [facility] Address [address] [facility] [address] Phone [phone] Care Team Providers Care Refuse And Recycling Worker Name Role Phone Melissa Hand MD Primary Care Prov ider Reason for Visit * Reason Onset Date Comments Appointment 10/22/2023 Dermatology Encounter Details Date Type Department Care Team (Late st Contact Info) Description 10/22/2023 Telephone Family Medicine [address] [phone] Melissa Hand MD [address] [place] [address] [place] [address] Appointment (Dermatology ) Allergies Active Allergy Reactions Criticality Noted [...] disease, with long-term current use of insulin ([facility]) Inject 1.5 mg under the skin once a week. 2 mL 5 05/10/2023 Active Additional Information Patient not taking.Reported on 10/22/2023 Trulicity 0.75 MG/0.5ML Subcutaneous Solution Pen-injector (Dulaglutide)Indicat ions:Type 2 diabetes mellitus with stage 4 chronic kidney disease, with long-term current use of insulin ([facility]) Inject 0.75 mg under the skin once [...] disease, with long-term current use of insulin ([facility]) test blood sugar 3 times [...] (Prevnar) 03/10/2019 Pneumococcal Conjugate Vacci ne, 20-valent ([id number]) 09/19/2021 Pneumococcal Polysaccharide PPV23 (Pneumovax) 09/08/2015 Season [...] No 08/05/2023 Does the household have a gular source of income? (Household - for [...] Encounter - Tiana Ny OSA - 10/22/2023 10:03 AM EDT Radha saw Dr. 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) [E83.59, L97.922] Comments Suspect calciphylaxis - needs biopsy Status History Encounter View Encounter Order Questions Question Answer Referral Priority Within 3 days (urgent) documented in this encounter Plan of Treatment Upcoming Encounters Date Type Department Care Team (Late st Contact Info) Description 11/06/2023 11:15 AM EDT Office Visit Urology, [facility] 132 [facility] [place] [address] Zbigniew Holder MD [address] [place] [address] 11/27/2023 9:40 AM EDT Office Visit Family [address] [phone] Melissa Hand MD [address] [place] [address] [place] [address] 01/03/2024 1:00 PM EDT Office Visit [address] [phone] Mony Reid [address] [place] [address] 01/17/2024 10:00 AM EDT Office Visit Hepatology, [facility] 132 [facility] [place] [address] Jaclyn Jay MD [address] [place] [address] 01/24/2024 9:30 AM EDT Cardiac Studies Cardiology, [facility] 132 [facility] [place] [address] Natanael Cast [facility] 132 [facility] [place] [address] 02/18/2024 2:45 PM EST Office [facility] [address] [place] [phone] Blayne Caruso MD [address] [place] [address] 09/09/2024 1:20 PM EDT Office Visit Dermatology [address] [place] [address] Gaby Pitt PA-C [address] [place] [address] [place] [address] Health Maintenance Due Date Last Done Comments [...] Documents on File Type Date Recorded Patient Bail Bond Agent Expl anation POLST 12/20/2022 2:13 PM POLST (Rosen ited DNR) Care Teams Refuse And Recycling Worker Relationship Specialty Start Date End Date Melissa Hand MD [address] [place] [address] [place] [address] PCP - General Family Medicine 03/11/19 documented as of this encounter
--- OUTSIDE RECORDS SUMMARY | 2023-12-30 03:17 | External Medical Summary | Summary of Care ---
Author Name Unknown Organization [facility] Address [address] [facility] [address] Phone [phone] Care Team Providers Care Braid Pattern Setter Name Role Phone Melissa Hand MD Primary Care Prov ider Reason for Visit * Reason Onset Date Comments Appointment 10/22/2023 Dermatology Encounter Details Date Type Department Care Team (Late st Contact Info) Description 10/22/2023 Telephone Family Medicine [address] [phone] Melissa Hand MD [address] [place] [address] [place] [address] Appointment (Dermatology ) Allergies Active Allergy [...] with long-term current use of insulin ([facility]) Inject 1.5 mg under the skin once a week. 2 mL 5 05/10/2023 Active Additional Information Patient not taking.Reported on 10/22/2023 Trulicity 0.75 MG/0.5ML Subcutaneous Solution Pen-injector (Dulaglutide)Indicat ions:Type 2 diabetes mellitus with stage 4 chronic kidney disease, with long-term current use of insulin ([facility]) Inject 0.75 mg under the [...] with long-term current use of insulin ([facility]) test blood sugar 3 times [...] (Prevnar) 03/10/2019 Pneumococcal Conjugate Vacci ne, 20-valent ([id number]) 09/19/2021 Pneumococcal Polysaccharide PPV23 (Pneumovax) 09/08/2015 Season [...] encounter Miscellaneous Notes * Telephone Encounter - Sofi Orlando OSA - 10/22/2023 1:12 PM EDT Pt scheduled * Telephone Encounter - Tiana Ny OSA [...] Care Team (Late st Contact Info) Description 10/25/2023 8:00 AM EDT Office Visit Dermatology [facility] [address] [place] [address] Dany Albrecht MD [address] [place] [address] 10/25/2023 4:00 PM EDT Office Visit Dermatology [facility] [address] [place] [address] Dany Albrecht MD [address] [place] [address] 11/06/2023 11:15 AM EDT Office Visit Urology, [facility] 132 [facility] [place] [address] Zbigniew Holder MD [address] [place] [address] 11/27/2023 9:40 AM EDT Office Visit Family [address] [phone] Melissa Hand MD [address] [place] [address] [place] [address] 01/03/2024 1:00 PM EDT Office Visit Family [address] [phone] Mony Reid CRNP [address] [place] [address] [place] [address] 01/17/2024 10:00 AM EDT Office Visit Hepatology, [facility] 132 [facility] [place] [address] Jaclyn Jay MD 310 [facility] [place] [address] 01/24/2024 9:30 AM EDT Cardiac Studies Cardiology, [facility] 132 [facility] [place] [address] [facility] [address] [place] [address] 02/18/2024 2:45 PM EST Office Visit Hematology/Oncology [facility] [address] [place] [phone] Blayne Caruso MD [address] [place] [address] 09/09/2024 1:20 PM EDT Office Visit Dermatology [address] [place] [address] Gaby Pitt PA-C [address] [place] [address] [place] [address] Health Maintenance Due Date Last Done Comments Cologuard 1994 Sigmoidoscopy 1994 Hepatitis B Vaccine (1 of 3 - Risk 3-dose series) 2009 Fecal Occult Blood Test 03/06/2020 03/06/2019, 03/09 COVID-19 Vaccine ( season) 2022 Mammogram 05/24/2023 05/24/2022, 05/09, 04/24/2021, Additional history exists Diabetic Eye Exam 07/13/2023 07/12/2022, , 05/18/2022, Additional history exists Phosphate 11/21/2023 11/20/2022, 0806/2022, 02/22/2022, Additional history exists Influenza Vaccine (FLU shot) (#1) 2023 03/08/2023, 01/19/2022, 03/16/2021, Additional history exists HbA1c 12/15/2023 06/14/2023, 08/0 06/2022, 05/18/2022, Additional history exists Albumin/Creatinine Ratio 01/01/2024 023, 11/08/2022, 08/10/2022, Additional history exists GFR 01/23/2024 07/24/2023, 04/1 , 06/14/2023, Additional history exists PTH 06/21/2024 [...] Documents on File Type Date Recorded Patient Court Commissioner Expl anation POLST 12/20/2022 2:13 PM POLST (Rosen ited DNR) Care Teams Braid Pattern Setter Relationship Specialty Start Date End Date Melissa Hand MD [address] [place] [address] [place] [address] PCP - General Family Medicine 03/11/19 documented as of this encounter
--- OUTSIDE RECORDS SUMMARY | 2023-12-30 03:17 | External Medical Summary | Summary of Care ---
Author Name Unknown Organization [facility] Address [address] [facility] [place] [address] Phone [phone] Care Team Providers Care Configuration Management Manager Name Role Phone Melissa Hand MD Primary Care Prov ider Reason for Visit * Reason Onset Date Comments Med Request 10/25/2023 Outpatient Testing 10/25/2023 Encounter Details Date Type Department Care Team (Late st Contact Info) Description 10/25/2023 Telephone [facility]rology[facility] 200 [facility] [place] [address] Solo Henry MD 200 [facility] [place] [address] Med Request; Outpatient Testing Allergies Active Allergy Reactions Criticality Noted Date Comments Lisinopril Cough Low 04/25/2020 High potassium documented as of this encounter (statuses as of 10/25/2023) Medications Medication Sig Dispensed Refills Start Date [...] when flaring 60 g 2 3 Active Ketoconazole 2 % External Shampoo (Nizoral)Indicatio ns:Seborrheic dermatitis MASSAGE INTO SCALP AND RINSE OUT AFTER FIVE TO TEN MINUTES, DO 3 TIMES WEEKLY THEN APPLY CLINDAMYCIN GEL TO OPEN SORES IF NEEDED 360 mL 2 3 Active Metoprolol Succinate ER 50 MG Oral Tablet Extended Release 24 Hour (toPROL XL)Indications:Chr onic systolic congestive heart failure (HCC) TAKE ONE TABLET BY MOUTH IN THE MORNING AND BEFORE BEDTIME 180 Tablet 3 3 Active BD Pen Needle Raquel U/F [...] disease, with long-term current use of insulin ([facility]) test blood sugar 3 [...] of chronic renal failure, stage 4 (severe) ([facility]) Take 2 Tablets by mouth in the morning. 90 Tablet 3 4 Active Torsemide 10 MG Oral Tablet (Demadex) Take 1 tablet in the morning. May take an additional tablet as needed for swelling, fluid retention 90 Tablet 3 3 10/25/19 24 Discontinued documented as of this encounter (statuses as of 10/25/2023) Active Problems Problem Noted Date Diagnosed Date [...] as of this encounter (statuses as of 10/25/2023) Resolved Problems Problem Noted Date Diagnosed Date [...] in situ 09/25/2016 02/18/2019 Ischemic cardiomyopathy 04/19/2016 1111/2017 CKD (chronic kidney disease) stage 3, GFR [...] as of this encounter (statuses as of 10/25/2023) Immunizations Name Administration Dates Next Due Influenza, Whole Virus 01/16/2013,04/20/2011 Pneumococcal Conjugate Vacc, 13 Valent (Prevnar) 03/10/2019 Pneumococcal Conjugate Vacci ne, 20-valent ([id number]) 09/19/2021 Pneumococcal Polysaccharide PPV23 (Pneumovax) 09/08/2015 Season [...] encounter Miscellaneous Notes * Telephone Encounter - Marina Gomez RN - 10/25/2023 3:00 PM EDT TE with pt's son regarding medication increase and repeat labs ordered. He repeated dose increase with understanding * Telephone Encounter - Marina Gomez RN - 10/25/2023 11:51 AM EDT LMAM with call back number.Orders placed. * Telephone Encounter - Marina Gomez RN - 10/25/2023 11:42 AM EDT ----- Message from Solo Henry MD sent at 10/25/2023 11:20 AM EDT ----- Regarding: plan Plan: Raise torsemide dose to 20 daily. Labs in about 10 days after med changes---cbc, renal panel PTH iron screen vit D . Solo Henry MD documented in this encounter Plan of Treatment Upcoming Encounters Date Type Department Care Team (Late st Contact Info) Description 11/06/2023 11:15 AM EDT Office Visit Urology, [facility] 132 [facility] [place] [address] Zbigniew Holder MD [address] [place] [address] 11/27/2023 9:40 AM EDT Office Visit Family Medicine [address] [phone] Melissa Hand MD [address] [place] [address] [place] [address] 01/03/2024 1:00 PM EDT Office Visit Family Medicine [address] [phone] Mony Reid CRNP [address] [place] [address] [place] [address] 01/17/2024 10:00 AM EDT Office Visit Hepatology, [facility] 132 [facility] [place] [address] Jaclyn Jay MD [address] [place] [address] [place] [address] 01/24/2024 9:30 AM EDT Cardiac Studies Cardiology, [facility] 132 [facility] [place] [address] [place] [address] [place] [address] 02/18/2024 2:45 PM EST Office Visit Hematology/Oncology [facility] 200 [facility] [place] [phone] Blayne Caruso MD 200 [facility] [place] [address] 09/09/2024 1:20 PM EDT Office Visit Dermatology [address] [place] [address] Gaby Pitt PA-C [address] [place] [address] [place] [address] Scheduled Orders Name Type Priority Associated Diagnoses Orde r Schedule CBC Lab Routine Anemia of chronic renal failure, stage 4 (severe) (HCC) Expected: 11/04/2023 (Approximate), Expires: 10/24/2024 RENAL FUNCTION PANEL Lab Routine Anemia of chronic renal failure, stage 4 (severe) (HCC) Expected: 11/04/2023 (Approximate), Expires: 10/24/2024 PTH Lab Routine Anemia of chronic renal failure, stage 4 (severe) (HCC) Expected: 11/04/2023 (Approximate), Expires: 10/24/2024 25-HYDROXY VITAMIN D Lab Routine Anemia of chronic renal failure, stage 4 (severe) (HCC) Vitamin D deficiency Expected: 11/04/2023 (Approximate), Expires: 10/24/2024 IRON SCREEN, INCLUDING TIBC Lab Routine Anemia of chronic renal failure, stage 4 (severe) (HCC) Expected: 11/04/2023 (Approximate), Expires: 10/24/2024 Health Maintenance Due Date Last Done Comments [...] as of this encounter Visit Diagnoses Diagnosis Anemia of chronic renal failure, stage 4 (severe) (HCC)- Primary Vitamin D deficiency Unspecified vitamin D deficiency documented in this encounter Advance Directives Documents on File Type Date Recorded Patient Poultry Offal Worker Expl anation POLST 12/20/2022 2:13 PM POLST (Rosen ited DNR) Care Teams Configuration Management Manager Relationship Specialty Start Date End Date Melissa Hand MD [address] [place] [address] [place] [address] PCP - General Family Medicine 03/11/19 documented as of this encounter
--- OUTSIDE RECORDS SUMMARY | 2023-12-30 03:17 | External Medical Summary | Summary of Care ---
Author Name Unknown Organization [facility] Address [address] [place] [address] Phone [phone] Care Team Providers Care Electrical Maintenance Technician Name Role Phone Melissa Hand MD Primary Care Prov ider Reason for Referral * Evaluate & Treat - Unlimited Visits (Within 3 days (urgent)) - Authorized Specialty Diagnoses / Procedures Referred By Julia biggs Referred To Contact Podiatry Diagnoses DM type 2 with diabetic peripheral neuropathy (HCC) Dany Albrecht MD [address] [place] [address] Referral ID Status Reason Start Date Expiration Date Visits Requested Visits Authorized [id number] Authorized Specialty Services Required 10/25/2023 999 999 Question Answer Referral Priority Within 3 days (urgent) Where should this appointment be scheduled? [facility] Which condition are you referring this patient for? 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) Melissa Hand MD [address] [place] [address] [place] [address] Referral ID Status Reason Start Date Expiration Date Visits Requested Visits Authorized [id number] Authorized Specialty Services Required 10/22/2023 999 999 Encounter Details Date Type Department Care Team (Late st Contact Info) Description 10/25/2023 8:00 AM EDT Office Visit Dermatology [facility] 200 [facility] [place] [address] Dany Albrecht MD 200 [facility] [place] [address] DM type 2 with diabetic peripheral neuropathy (HCC)* Allergies Active Allergy Reactions Criticality Noted Date [...] a week. 2 mL 5 05/10/2023 Active Trulicity 0.75 MG/0.5ML Subcutaneous Solution Pen-injector (Dulaglutide)Indicat [...] (Prevnar) 03/10/2019 Pneumococcal Conjugate Vacci ne, 20-valent ([id number]) 09/19/2021 Pneumococcal Polysaccharide PPV23 (Pneumovax) 09/08/2015 Season [...] as of this encounter Progress Notes * Dany Albrecht MD - 10/25/2023 8:29 AM EDT SUBJECTIVE: Chief Complaint: Chief Complaint Patient presents with Follow Up Skin related concerns on bilateral lower legs HPI: Radha Ribera is a 73 year old female seen for wounds on lower legs. Tender, painful. Worse on left leg. Covered with bandages today OBJECTIVE: GEN: In wheelchair but alert, no distress, appears oriented, pleasant, and cooperative SKIN: Problem focused exam reveals: Shins with several crusted ulcers. Pitting edema (L > R) Distal toes with small ulcerations, hyperkeratotic scale ASSESSMENT/PLAN: Diabetic peripheral neuropathy and venous stasis dermatitis - Discussed nature of condition and expected course, treatment options - nurses covered wounds with vaseline and telfa. TMC to surrounding skin. Wrapped with xander bandages - not consistent with calciphylaxis - referral to podiatry for further management Dany Albrecht MD Ref: MELISSA HAND[[id number]] [address] [place] [address] [place] [address] (office) [phone] (fax) PCP: MELISSA HAND [address] [place] [address] [place] [address] [phone] documented in this encounter Nursing Notes * Yokasta Romero LPN - 10/25/2023 8:32 AM EDT Patient identified by name and date of . Do you have any concerns about pain management for today's visit? No Living Will or Advance Directive for Health Care as noted on problem list. [facility] is a way you can talk to your provider online through e-mail. Would you like to sign up? I can activate it for you? ALREADY ACTIVE Chief Complaint Patient presents with Follow Up Skin related concerns on bilateral lower legs documented in this encounter Plan of Treatment Upcoming Encounters Date Type Department Care Team (Late st Contact Info) Description 10/25/2023 10:40 AM EDT Office Visit Nephrology, [facility] 200 [facility] [place] [address] Solo Henry MD 200 [facility] [place] [address] Arrived 11/06/2023 11:15 AM EDT Office Visit Urology, [facility] 132 [facility] [place] [address] Zbigniew Holder MD 27 [place] [address] 11/27/2023 9:40 AM EDT Office Visit Family Medicine [address] [place] [phone] Melissa Hand MD [address] [place] [address] [place] [address] 01/03/2024 1:00 PM EDT Office Visit Family Medicine [address] [place] [phone] Mony Reid CRNP [address] [place] [address] [place] [address] 01/17/2024 10:00 AM EDT Office Visit Hepatology, [facility] 132 [facility] [place] [address] Jaclyn Jay MD [address] [place] [address] 01/24/2024 9:30 AM EDT Cardiac Studies Cardiology, [address] [place] [address] [facility] 132 [facility] [place] [address] 02/18/2024 2:45 PM EST Office Visit Hematology/Oncology [facility] 200 [facility] [place] [phone] Blayne Caruso MD [address] [place] [address] 09/09/2024 1:20 PM EDT Office Visit Dermatology [address] [place] [address] Gaby Pitt PA-C [address] [place] [address] [place] [address] Scheduled Referrals Name Type Priority Associated Diagnoses Orde r Schedule PODIATRY REFERRAL OP Referral Within 3 days (urgent) DM type 2 with diabetic peripheral neuropathy (HCC) Ordered: 10/25/2023 Health Maintenance Due Date Last Done Comments [...] 10/21/2024 024, 12/31/2022, 11/08/2022, Additional history exists Nephrology Referral 10/21/2024 10/22/2023, 3 Phosphate 10/21/2024 10/22/2023, 11/06, 11/08/2022, Additional history exists Colonoscopy 09/13/2029 09/14/2019 Colorectal Cancer Screening 09/13/2029 [...] as of this encounter Visit Diagnoses Diagnosis DM type 2 with diabetic peripheral neuropathy (HCC)- Primary Type II or unspecified type diabetes mellitus with neurological manifestations, not stated as uncontrolled documented in this encounter Advance Directives Documents on File Type Date Recorded Patient Automotive Refinish Technician Expl anation POLST 12/20/2022 2:13 PM POLST (Judy meyers DNR) Care Teams Electrical Maintenance Technician Relationship Specialty Start Date End Date Melissa Hand MD [address] [place] [address] [place] [address] PCP - General Family Medicine 03/11/19 documented as of this encounter
--- OUTSIDE RECORDS SUMMARY | 2023-12-30 03:17 | External Medical Summary | Summary of Care ---
Author Name Unknown Organization [facility] Address [address] [place] [address] Phone [phone] Care Team Providers Care Vice President Of Instruction Name Role Phone Melissa Hand MD Primary Care Prov ider Reason for Referral * Evaluate & Treat - Unlimited Visits (Within 3 days (urgent)) - Authorized Specialty Diagnoses / Procedures Referred By Julia biggs Referred To Contact Podiatry Diagnoses DM type 2 with diabetic peripheral neuropathy (HCC) Dany Albrecht MD [address] [place] [address] Referral ID Status Reason Start Date Expiration Date Visits Requested Visits Authorized [id number] Authorized Specialty Services Required 10/25/2023 999 999 [...] ulcer with fat layer exposed (HCC) Melissa Hadn MD [address] [place] [address] [place] [address] Referral ID Status Reason Start Date Expiration Date Visits Requested Visits Authorized [id number] Authorized Specialty Services Required 10/22/2023 999 999 Encounter Details Date Type Department Care Team (Late st Contact Info) Description 10/25/2023 8:00 AM EDT Office Visit Dermatology [facility] [place] [facility] [facility] [place] [address] Dany Albrecht MD 200 [facility] [place] [address] DM type 2 with diabetic peripheral neuropathy [...] (Prevnar) 03/10/2019 Pneumococcal Conjugate Vacci ne, 20-valent ([id number]) 09/19/2021 Pneumococcal Polysaccharide PPV23 (Pneumovax) 09/08/2015 Season [...] further management Dany Albrecht MD Ref: MELISSA HAND[[id number]] [address] [place] [address] [place] [address] (office) [phone] (fax) PCP: MELISSA HAND [address] [place] [address] [place] [address] [phone] documented in this encounter Nursing Notes * [...] 10/25/2023 10:40 AM EDT Office Visit Nephrology, [facility] 200 [facility] [place] [address] Solo Henry MD 200 [facility] [place] [address] Arrived 11/06/2023 11:15 AM EDT Office Visit Urology, [facility] 132 [facility] [place] [address] Zbigniew Holder MD 27 [place] [address] 11/27/2023 9:40 AM EDT Office Visit Family Medicine [address] [place] [phone] Melissa Hand MD [address] [place] [address] [place] [address] 01/03/2024 1:00 PM EDT Office Visit Family Medicine [address] [place] [phone] Mony Reid CRNP [address] [place] [address] [place] [address] 01/17/2024 10:00 AM EDT Office Visit Hepatology, [facility] 132 [facility] [place] [address] Jaclyn Jay MD [address] [place] [address] 01/24/2024 9:30 AM EDT Cardiac Studies Cardiology, [address] [place] [address] [facility] 132 [facility] [place] [address] 02/18/2024 2:45 PM EST Office Visit Hematology/Oncology [facility] 200 [facility] [place] [phone] Blayne Caruso MD [address] [place] [address] 09/09/2024 1:20 PM EDT Office Visit Dermatology [address] [place] [address] Gaby [place] PA-C [address] [place] [address] [place] [address] Scheduled Referrals Name Type Priority Associated Diagnoses [...] Documents on File Type Date Recorded Patient Carpenter Foreman Expl anation POLST 12/20/2022 2:13 PM POLST (Rosen ited DNR) Care Teams Vice President Of Instruction Relationship Specialty Start Date End Date Melissa Hand MD [address] [place] [address] [place] [address] PCP - General Family Medicine 03/11/19 documented as of this encounter
--- OUTSIDE RECORDS SUMMARY | 2023-12-30 03:17 | External Medical Summary | Summary of Care ---
Author Name Unknown Organization [facility] [address] Phone [phone] Care Team Providers Care Senior Support Analyst Name Role Phone Melissa Hand MD Primary Care Prov ider Reason for Visit * Reason Comments Outpatient Testing Encounter Details Date Type Department Care Team (Late st Contact Info) Description 10/22/2023 9:40 AM EDT Laboratory Laboratory [address] [place] [phone] [place] [address] Type 2 diabetes mellitus with stage 4 chronic kidney disease, with long-term current use of insulin ([facility]); 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 2 mL 5 05/10/2023 Active Additional Information Patient not taking.Reported on 10/22/2023 Trulicity 0.75 MG/0.5ML Subcutaneous Solution Pen-injector (Dulaglutide)Indicat ions:Type 2 diabetes mellitus with stage 4 chronic kidney disease, with long-term current use of insulin ([facility]) Inject 0.75 mg under the skin once a week. 2 mL 11 05/15/2023 Active Aspirin Low Dose 81 MG Oral Tablet Delayed Release (aspirin enteric coated) TAKE ONE TABLET BY MOUTH EVERY DAY 90 Tablet 3 05/18/2023 Active Mirtazapine 15 MG Oral Tablet (Remeron)Indications :Recurrent major depressive disorder, in full remission ([facility]),Poor appetite TAKE ONE TABLET BY MOUTH AT BEDTIME 30 Tablet 5 05/22/2023 Active Sertraline HCl 100 MG Oral Tablet (Zoloft)Indications: Recurrent major depressive disorder, in full remission ([facility]) Take 1.5 Tablets by mouth at bedtime. [...] disease, with long-term current use of insulin ([facility]) test blood sugar 3 [...] (Prevnar) 03/10/2019 Pneumococcal Conjugate Vacci ne, 20-valent ([id number]) 09/19/2021 Pneumococcal Polysaccharide PPV23 (Pneumovax) 09/08/2015 Season [...] 11/06/2023 11:15 AM EDT Office Visit Urology, [facility] 132 [facility] [place] [address] Zbigniew Holder MD 27 [place] [address] 01/03/2024 1:00 PM EDT Office Visit Family Medicine [facility] [place] [place] [phone] Mony Reid CRNP [address] [place] [address] [place] [address] 01/17/2024 10:00 AM EDT Office Visit Hepatology, [facility] 132 [facility] [place] [address] Jaclyn Jay MD [address] [place] [address] 01/24/2024 9:30 AM EDT Cardiac Studies Cardiology, [facility] 132 [facility] [place] [address] [place] 132 [facility] [place] [address] 02/18/2024 2:45 PM EST Office Visit Hematology/Oncology [facility] [address] [place] [phone] Blayne Caruso MD [address] [place] [address] 09/09/2024 1:20 PM EDT Office Visit Dermatology [address] [place] [address] Gaby Pitt PA-C [address] [place] [address] [place] [address] Pending Results Name Type Priority Associated Diagnoses Date /Time RENAL FUNCTION PANEL Lab Routine Type 2 diabetes mellitus with stage 4 chronic kidney disease, with long-term current use of insulin (HCC) 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) 10/22/2023 9:42 AM EDT HEMOGLOBIN A1C Lab Routine Type 2 diabetes mellitus with stage 4 chronic kidney disease, with long-term current use of insulin (HCC) 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) 10/22/2023 9:42 AM EDT ALBUMIN / CREATININE RATIO, URINE Lab Routine Type 2 diabetes mellitus with stage 4 chronic kidney disease, with long-term current use of insulin (HCC) 10/22/2023 9:53 AM EDT Health Maintenance Due Date Last [...] as of this encounter Visit Diagnoses Diagnosis Type 2 diabetes mellitus with stage 4 chronic kidney disease, with long-term current use of insulin (HCC) 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
--- OUTSIDE RECORDS SUMMARY | 2023-12-30 03:17 | External Medical Summary | Summary of Care ---
Author Name Unknown Organization [facility] Address [address] [facility] [address] Phone [phone] Care Team Providers Care Research Anthropologist Name Role Phone Melissa Hand MD Primary Care Prov ider Reason for Visit * Reason Comments eRx-Medication Refill Encounter Details Date Type Department Care Team (Late st Contact Info) Description 10/27/2023 Refill Family Medicine [address] [phone] Melissa Hand MD [address] [place] [address] [place] [address] Chronic systolic congestive heart failure (HCC) Allergies Active Allergy Reactions Criticality Noted Date Comments Lisinopril Cough Low 04/25/2020 High potassium documented as of this encounter (statuses as of 10/27/2023) Medications Medication Sig Dispensed Refills Start Date [...] IF NEEDED 360 mL 2 3 Active BD Pen Needle Raquel [...] s:Recurrent major depressive disorder, in full remission ([facility]) Take 1.5 Tablets by mouth at bedtime. [...] long-term current use of insulin ([facility]) test blood sugar 3 times daily [...] renal failure, stage 4 (severe) ([facility]) Take 2 Tablets by mouth in the morning. 90 Tablet 3 4 Active Metoprolol Succinate ER 50 MG Oral Tablet Extended Release 24 Hour (toPROL XL)Indications:Chr onic systolic congestive heart failure (HCC) TAKE ONE TABLET BY MOUTH IN THE MORNING AND BEFORE BEDTIME 180 Tablet 1 4 Active Metoprolol Succinate ER 50 MG Oral Tablet Extended Release 24 Hour (toPROL XL)Indications:Chr onic systolic congestive heart failure (HCC) TAKE ONE TABLET BY MOUTH IN THE MORNING AND BEFORE BEDTIME 180 Tablet 3 3 10/27/19 24 Discontinued documented as of this encounter (statuses as of 10/27/2023) Active Problems Problem Noted Date Diagnosed Date [...] as of this encounter (statuses as of 10/27/2023) Resolved Problems Problem Noted Date Diagnosed Date [...] in situ 09/25/2016 02/18/2019 Ischemic cardiomyopathy 04/19/2016 11/11/2017 CKD (chronic kidney disease) stage 3, GFR [...] as of this encounter (statuses as of 10/27/2023) Immunizations Name Administration Dates Next Due Influenza, Whole Virus 01/16/2013,04/20/2011 Pneumococcal Conjugate Vacc, 13 Valent (Prevnar) 03/10/2019 Pneumococcal Conjugate Vacci ne, 20-valent ([id number]) 09/19/2021 Pneumococcal Polysaccharide PPV23 (Pneumovax) 09/08/2015 Season [...] encounter Miscellaneous Notes * Telephone Encounter - Sandi Hester [facility] - 10/27/2023 8:53 PM EDTSigned Prescriptions: Disp Refills Metoprolol Succinate ER 50 MG Oral Tablet *180 Ta*1 Sig: TAKE ONE TABLET BY MOUTH IN THE MORNING AND BEFORE BEDTIMEAuthorizing Provider: MELISSA HAND User: SANDI HESTER documented in this encounter Plan of Treatment Upcoming Encounters Date Type Department Care Team (Late st Contact Info) Description 11/06/2023 11:15 AM EDT Office Visit Urology, [facility] 132 [facility] [place] [address] Zbigniew Holder MD 27 [place] [address] 11/27/2023 9:40 AM EDT Office Visit [address] [place] [phone] Melissa Hand MD [address] [place] [address] [place] [address] 01/03/2024 1:00 PM EDT [address] [phone] Mony Reid CRNP [address] [place] [address] [place] [address] 01/17/2024 10:00 AM EDT Office Visit Hepatology, [facility] [address] [place] [address] Jaclyn Jay MD 310 [facility] [place] [address] 01/24/2024 9:30 AM EDT Cardiac Studies Cardiology, [facility] 132 [facility] [place] [address] Natanael Cast [facility] 132 [facility] [place] [address] 02/18/2024 2:45 PM EST Office Visit Hematology/Oncology [facility] [place] [address] [place] [phone] Blayne Caruso MD [address] [place] [address] 09/09/2024 1:20 PM EDT Office Visit Dermatology [address] [place] [address] Gaby Pitt PA-C [address] [place] [address] [place] [address] Health Maintenance Due Date Last Done Comments [...] as of this encounter Visit Diagnoses Diagnosis Chronic systolic congestive heart failure (HCC) Chronic systolic heart failure documented in this encounter Advance Directives Documents on File Type Date Recorded Patient Electroplater Helper Expl anation POLST 12/20/2022 2:13 PM POLST (Rosen ited DNR) Care Teams Research Anthropologist Relationship Specialty Start Date End Date Melissa Hand MD [address] [place] [address] [place] [phone] PCP - General Family Medicine 03/11/19 documented as of this encounter
--- OUTSIDE RECORDS SUMMARY | 2023-12-30 03:17 | External Medical Summary | Summary of Care ---
Author Name Unknown Organization [facility] Address [facility] [address] [facility] [address] Phone [phone] Care Team Providers Care It Architecture Analyst Name Role Phone Melissa Hand MD Primary Care Prov ider Reason for Visit * Reason Onset Date Comments Appointment 10/22/2023 Nephrology Encounter Details Date Type Department Care Team (Late st Contact Info) Description 10/22/2023 Telephone Family Medicine [address] [phone] Melissa Hand MD [address] [place] [address] [place] [address] Appointment (Nephrology ) Allergies Active Allergy [...] disease, with long-term current use of insulin ([facility]) Inject 1.5 mg under the skin once a week. 2 mL 5 05/10/2023 Active Additional Information Patient not taking.Reported on 10/22/2023 Trulicity 0.75 MG/0.5ML Subcutaneous Solution Pen-injector (Dulaglutide)Indicat ions:Type 2 diabetes mellitus with stage 4 chronic kidney disease, with long-term current use of insulin ([facility]) Inject 0.75 mg under the [...] disease, with long-term current use of insulin ([facility]) test blood sugar 3 times [...] (Prevnar) 03/10/2019 Pneumococcal Conjugate Vacci ne, 20-valent ([id number]) 09/19/2021 Pneumococcal Polysaccharide PPV23 (Pneumovax) 09/08/2015 Season [...] Encounter - Sofi Orlando OSA - 10/22/2023 1:08 PM EDT Spoke to pts son about a derm appt and he stated someone had called him to get his mother in for this Saturday as well. He would like someone to call back to confirm that appt that was previously offered * Telephone Encounter - Tiana Ny OSA [...] 10/25/2023 8:00 AM EDT Office Visit Dermatology [facility] 200 [facility] [address] Dany Albrecht MD 200 [facility] [place] [address] 10/25/2023 4:00 PM EDT Office Visit Dermatology [facility] 200 [facility] [place] [address] Dany Albrecht MD 200 [facility] [place] [address] 11/06/2023 11:15 AM EDT Office Visit Urology, [facility] 132 [facility] [place] [address] Zbigniew Holder MD [address] [place] [address] 11/27/2023 9:40 AM EDT Office Visit Family [address] [phone] Melissa Hand MD [address] [place] [address] [place] [address] 01/03/2024 1:00 PM EDT Office Visit Family [address] [phone] Mony Reid CRNP [address] [place] [address] [place] [address] 01/17/2024 10:00 AM EDT Office Visit Hepatology, [facility] 132 [facility] [place] [address] Jaclyn Jay MD [address] [place] [address] 01/24/2024 9:30 AM EDT Cardiac Studies Cardiology, [facility] 132 [place] [address] [facility] 132 [place] [address] 02/18/2024 2:45 PM EST Office Visit Hematology/Oncology [facility] 200 [facility] [place] [phone] Blayne Caruso MD 200 [facility] [place] [address] 09/09/2024 1:20 PM EDT Office Visit Dermatology [address] [place] [address] Gaby Pitt PA-C [address] [place] [address] [place] [address] Health Maintenance Due Date Last Done Comments [...] Documents on File Type Date Recorded Patient Herbarium Worker Expl anation POLST 12/20/2022 2:13 PM POLST (Rosen ited DNR) Care Teams It Architecture Analyst Relationship Specialty Start Date End Date Melissa Hand MD [address] [place] [address] [place] [address] PCP - General Family Medicine 03/11/19 documented as of this encounter
--- OUTSIDE RECORDS SUMMARY | 2023-12-30 03:17 | External Medical Summary | Summary of Care ---
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) Melissa Hand MD [address] [place] [address] [place] [address] Referral ID Status Reason Start Date Expiration Date Visits Requested Visits Authorized [id number] Authorized Specialty Services Required 10/22/[phone] Encounter Details Date Type Department Care Team (Late st Contact Info) Description 10/25/2023 10:40 AM EDT Office Visit [facility] Ann [address] [place] [address] Solo Henry MD [address] [place] [id number] Stage 3b chronic kidney disease (HCC)*; Anemia of chronic renal failure, stage 4 (severe) (HCC) Allergies Active Allergy Reactions Criticality Noted [...] disease, with long-term current use of insulin ([facility]) Inject 1.5 mg under the skin once a week. 2 mL 5 05/10/2023 Active Additional Information Patient not taking.Reported on 10/25/2023 Trulicity 0.75 MG/0.5ML Subcutaneous Solution Pen-injector (Dulaglutide)Indicat ions:Type 2 diabetes mellitus with stage 4 chronic kidney disease, with long-term current use of insulin ([facility]) Inject 0.75 mg under the skin once [...] Recurrent major depressive disorder, in full remission ([facility]) Take 1.5 Tablets by mouth at bedtime. [...] disease, with long-term current use of insulin ([facility]) test blood sugar 3 times daily dx [...] (Prevnar) 03/10/2019 Pneumococcal Conjugate Vacci ne, 20-valent ([id number]) 09/19/2021 Pneumococcal Polysaccharide PPV23 (Pneumovax) 09/08/2015 Season [...] on file documented as of this encounter Last Filed Vital Signs Vital Sign Reading Time Taken Comments Blood Pressure 127/70 10/25/2023 10:11 AM EDT Pulse 76 10/25/2023 10:11 AM EDT Temperature 36.4 C (97.5 F) 10/25/2023 10:11 AM E DT Respiratory Rate 18 10/25/2023 10:11 AM EDT Oxygen Saturation 97% 10/25/2023 10:11 AM EDT Inhaled Oxygen Concentration - - Weight - - Height - - Body Mass Index - - documented in this encounter Progress Notes * Solo Henry MD - 10/25/2023 11:09 AM EDT Patient Active Problem List Diagnosis Essential hypertension [...] sacrum, limited to breakdown of skin (HCC) BACKGROUND: 72 year old female presents for f/u of proteinuric CKD 3b/ 4. She has been seeing Dr. Syed in [place] [facility]. Patient and her daughter are not sure why she is seeing me today from diabetes, hypertension, past chronic NSAID use, significant ischemic cardiomyopathy, and poor functional status PMH includes deconditioning, at least mild cognitive impairment, DM since 1985 on insulin, HTN since at least 2009, HL, ischemic cardiomyopathy EF 33% s/p ICD, moderate infarct on stress testing, GERD, cystocele, L ankle ORIF 2009 and since then walks w/ cane. Tends toward hyperkalemia. Hx of heavynsaid use. 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 Jaimes] attributed CKD to nsaids, htn, cardiorenal syndrome, DM. Her creatinine from 09/2009-01/2016 ranges from 1.1- 1.5; then 1.8-2.2 from 03/2016-05/2018. After stopping nsaids, on repeat test, creatinine 1.5 in 06/2018. No FH of CKD/ESRD; stopped nsaids 05/2018, had been using prn aleve back pain. 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 follows w/ derm. Hospitalized [facility] February 2019 with shortness of breath and was found to have hypoxia, CORBY, bilateral pleural effusions, congestive heart failure, and hyperkalemia. Creatinine on admission 2.2, w/ K5.8; d/c creat 1.7. Fall February 2021 w/ head laceration needing stitches. Ct negative Hospitalized [facility] w/ klebsiella UTI Dec 2021 [facility] 03/07-03/11 for weakness, fall, complicated UTI (same as Dec 2020); and in ER 04/06/22 for diarrhea, dehydration. At that visit had 1.3 L NS. Creatinine remained at baseline both encounters; at last one creat at d/c was 2 and K 4.8. 2 local daughters often accompany her to clinic; her son manages meds and diet Drinks at least : 1 bottle a day .also juice and milke Home blood pressure checks: No NSAID use: No Tylenol as needed Herbals/supplements: Vit D Today 10/25/2023 Denies any recent hospitalizations,or procedures Presents with 2 daughters " Just came from Dermatology appointment where she was diagnosed as diabetic neuropathy with dermatitis related with venous stasis. The note says lesions not consistent with calciphylaxis" Recent labs from October 2023 was reviewed and actually better GFR than before. She had urinary tract infection back in June and was on Bactrim for some time. Renal function was worse when she was on Bactrim with a creatinine of 2.3. Patient is very deconditioned and mostly use his wheelchair. She has chronic pain in her tailbone. . REVIEW OF SYSTEMS General: No fatigue, No change in weight Head: No significant headache Respiratory: No cough,No wheezing, No shortness of breath Cardiovascular:No chest pain, No palpitations, and No syncope Gastrointestinal: No nausea, vomiting, diarrhea No blood in stools + abdominal pain Urinary: +dysuira, No hematuria. + flank pain Musculoskeletal: No edema Skin: No itching All other systems were reviewed and were negative. Current Outpatient Medications Medication Sig Dispense Refill Acetaminophen 325 MG Oral Tablet Take 2 Tablets by mouth every 4 hours as needed. 100 Tab 0 Vitamin D3 25 MCG (1000 UT) Oral Tablet (Vitamin D3) Take 1 Tablet by mouth in the morning. Cranberry 50 MG Oral Tablet Chewable Once per daily Metoprolol Succinate ER 50 MG Oral Tablet Extended Release 24 Hour (toPROL XL) TAKE ONE TABLET BY MOUTH IN THE MORNING AND BEFORE BEDTIME 180 Tablet 3 Torsemide 10 MG Oral Tablet (Demadex) Take 1 tablet in the morning. May take an additional tablet as needed for swelling, fluid retention 90 Tablet 3 Basaglar KwikPen 100 UNIT/ML Subcutaneous Solution Pen-injector (Insulin Glargine Solostar) inject 15 units under the skin at bedtime 15 mL 1 Trulicity 0.75 MG/0.5ML Subcutaneous Solution Pen-injector (Dulaglutide) [...] mouth in the morning. 90 Tablet 1 Gabapentin 100 MG Oral Capsule (Neurontin) TAKE ONE CAPSULE BY MOUTH EVERY DAY 90 Capsule 0 nitroglycerin (NITROSTAT) 0.[address] 1 Tab under the tongue as needed for Pain, Chest. May repeat 3 times. If chest pain continues, call 911. 25 Tab 0 Lancets MISC Test 3 times daily E11.9 100 Each 5 OneTouch Delica Lancets 33G MISC Test 3 times daily. E11.9 100 Each 5 Ketoconazole 2 % External Cream Apply 2x daily to rash on face until resolved, then when flaring 60g 2 Ketoconazole 2 % External Shampoo (Nizoral) MASSAGE INTO SCALP AND RINSE OUT AFTER FIVE TO TEN MINUTES, DO 3 TIMES WEEKLY THEN APPLY CLINDAMYCIN GEL TO OPEN SORES IF NEEDED 360 mL 2 BD Pen Needle Raquel U/F 32G X 4 MM (Insulin Pen Needle) use with insulin and victoza--2 needles per day 200 Each 3 Trulicity 1.5 MG/0.5ML Subcutaneous Solution Pen-injector (Dulaglutide) Inject 1.5 mg under the skin once a week. (Patient not taking: Reported on 10/25/2023) 2 mL 5 OneTouch Verio In Vitro Strip (Glucose Blood) test blood sugar 3 times daily dx e11.22 300 Strip 1 Sulfamethoxazole-Trimethoprim 800-160 MG Oral Tablet (Bactrim DS) Take 1 Tablet by mouth in the morning and 1 Tablet before bedtime. Use as directed.. (Patient not taking: Reported on 10/25/2023) 14 Tablet 0 No current facility-administered medications for this visit. PHYSICAL EXAMINATION Last 4 BP Readings: BP Readings from Last 4 Encounters: 10/25/23 147/83 10/22/23 118/50 09/20/23 122/70 08/16/23 137/84 Last 3 Weights: Wt Readings from Last 3 Encounters: 10/22/23 57.2 kg (126 lb) 08/16/23 53.9 kg (118 lb 14.4 oz) 07/29/23 54.3 kg (119 lb 12.8 oz) BP 147/83 | Pulse 76 | Temp 36.4 C (97.5 F) | Resp 18 | SpO2 97% Wt Readings from Last 1 Encounters: 10/22/23 57.2 kg (126 lb) General appearance: alert, no apparent distress. Ambulatory with seated walker HEAD: Normocephalic, No masses, lesions, tenderness Respiratory: clear to auscultation, no rhonchi, no wheezes and no crackles Heart: regular rate and regular rhythm Abdomen: abdomen soft, +tender and no CVA tenderness EXTREMITIES: No edema, No cyanosis or clubbing Skin: skin color, texture, turgor are normal NEURO: alert & oriented x 3 with fluent speech, no focal motor/sensory deficits No tremor Patient is not a reliable historian of events LABS: Latest Reference Range & Units 05/18/22 15:24 06/07/22 16:05 06/29/22 12:57 07/13/22 09:43 09/14/22 15:26 11/08/22 10:39 Sodium 135 - 146 mmol/L 140 141 141 142 138 138 Potassium 3.5 - 5.1 mmol/L 5.0 4.9 3.8 5.0 5.1 5.8 (H) Chloride 98 - 107 mmol/L 103 104 100 103 100 102 CO2 22 - 32 mmol/L 29 26 29 23 25 24 BUN 6 - 20 mg/dL 71 (H) 80 (H) 64 (H) 91 (H) 66 (H) 72 (H) Creatinine 0.5 - 1.0 mg/dL 1.9 (H) 1.9 (H) 1.7 (H) 2.2 (H) 1.9 (H) 1.9 (H) Estimated Glomerular Filtration Rate >=60 mL/min 27 (L) 28 (L) 32 (L) 23 (L) 27 (L) 27 (L) Anion Gap 7 - 15 mmol/L 8 11 12 16 (H) 13 12 Glucose 70 - 120 mg/dL 158 (H) 170 (H) 247 (H) 242 (H) 208 (H) 227 (H) Calcium 8.4 - 10.2 mg/dL 8.9 9.3 9.4 9.3 9.0 9.5 Phosphorus 2.5 - 4.8 mg/dL 3.9 Protein 6.0 - 8.3 g/dL 7.4 7.6 (H): Data is abnormally high (L): Data is abnormally low Latest Reference Range & Units 08/28/21 13:15 08/10/22 14:30 11/08/22 10:39 Albumin / Creatinine Ratio, Urine <30 mg/g Creat 101 (H) 178 (H) 2,979 (H) ALBUMIN / CREATININE RATIO, URINE Rpt ! Rpt ! Rpt ! (H): Data is abnormally high !: Data is abnormal Rpt: View report in Results Review for more information ASSESSMENT/PLAN: Stage 3b chronic kidney disease (HCC) (Primary) 35+ years of diabetes requiring insulin is probably the underlying cause of CKD with proteinuria. She had 3 g proteinuria by ACR last year but the more recent 1 is actually better at 483 !! However for some difficult to explain reason her most recent blood work from 3 days ago is actuallymuch better with a creatinine of 1.5 giving a GFR of 36. She is not on Panfilo or Arb which I presume related with h/o High K. On torsemide and still has lot of edema. Also Ulcer--Just saw Derm and their note says neuropathy with dermatitis from venous Stasis. Given this would recommend to raise the dose of torsemide to 20 daily. Eat a low sodium diet (less than 2000 mg or 1/2 tsp) daily Eat a lower potassium diet Avoid medicines like aleve, advil, ibuprofen, aspirin more than 81 mg daily and other NSAIDS which are not good for kidney patients. Take only tylenol (acetaminophen) up to 2000 mg daily as needed for pain or as directed by your primary care provider. Reviewed previous status of kidney function and goals of care. All questions were answered. Anemia of chronic renal failure, stage 4 (severe) ([facility]) Last hemoglobin 10.6 from July 2023. This is still goal. Plan: Raise torsemide dose to 20 daily. Labs in about 10 days after med changes---cbc, renal panel PTH iron screen. Follow Up: Return in about 6 months (around 04/26/2024) for Clinic Visit. | For: Clinic Visit | Check-out note: Next appt with Dr Shahid in [place] Solo Henry MD * Marina Gomez RN - 10/25/2023 10:12 AM EDT New return- Previously seen in [place] by Dr Shahid. Daughters are with her. documented in this encounter Plan of Treatment Upcoming Encounters Date Type Department Care Team (Late st Contact Info) Description 11/06/2023 11:15 AM EDT Office Visit Urology, [facility] [address] [facility] [place] [address] Zbigniwe Holder MD [address] [address] 11/27/2023 9:40 AM EDT Office Visit Family [address] [phone] Melissa Hand MD [address] [place] [address] [place] [address] 01/03/2024 1:00 PM EDT Office Visit Family [address] [place] [phone] Mony Reid CRNP [address] [place] [address] [place] [address] 01/17/2024 10:00 AM EDT Office Visit [facility]atology, [facility] [address] Jaclyn Jay MD [address] [place] [address] 01/24/2024 9:30 AM EDT Cardiac Studies Cardiology, [address] [place] [address] Serene Pacer [facility] 132 [place] [address] 02/18/2024 2:45 PM EST Office Visit Hematology/Oncology [facility] [address] [place] [phone] Blayne Caruso MD [address] [place] [address] 09/09/2024 1:20 PM EDT Office Visit Dermatology [address] [place] [address] Gaby Pitt PA-C [address] [place] [address] [place] [address] Scheduled Referrals Name Type Priority Associated Diagnoses Orde r Schedule NEPHROLOGY REFERRAL OP Referral Within 3 days (urgent) 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) Ordered: 10/22/2023 Health Maintenance Due Date Last Done Comments [...] 09/19/2021, Additional history exists Albumin/Creatinine Ratio 10/21/2024 07/2 024, 12/31/2022, 11/08/2022, Additional history exists Phosphate [...] as of this encounter Visit Diagnoses Diagnosis Stage 3b chronic kidney disease (HCC)- Primary Anemia of chronic renal failure, stage 4 (severe) (HCC) documented in this encounter Advance Directives Documents on File Type Date Recorded Patient Electrical Intern Expl anation POLST 12/20/2022 2:13 PM POLST (Rosen ited DNR) Care Teams Biomedical Equipment Specialist Relationship Specialty Start Date End Date Melissa Hand MD [address] [place] [address] [place] [address] PCP - General Family Medicine 03/11/19 documented as of this encounter
--- OUTSIDE RECORDS SUMMARY | 2023-12-30 03:17 | External Medical Summary | Summary of Care ---
Author Name Unknown Organization [facility] Address [address] [place] [address] Phone [phone] Care Team Providers Care Ultrasound Supervisor Name Role Phone Melissa Hand MD Primary Care Prov ider Reason for Referral * Evaluate & Treat - Unlimited Visits (Within 3 days (urgent)) - Authorized Specialty Diagnoses / Procedures Referred By Julia biggs Referred To Contact Podiatry Diagnoses DM type 2 with diabetic peripheral neuropathy (HCC) Dany Albrecht MD [address] [place] [address] Referral ID Status Reason Start Date Expiration Date Visits Requested Visits Authorized [id number] Authorized Specialty Services Required 10/25/2023 999 999 [...] fat layer exposed (HCC) Melissa Hand MD [address] [place] [address] [place] [address] Referral ID Status Reason Start Date Expiration Date Visits Requested Visits Authorized [id number] Authorized Specialty Services Required 10/22/[phone] Encounter Details Date Type Department Care Team (Late st Contact Info) Description 10/25/2023 8:00 AM EDT Office Visit Dermatology [facility] [place] [address] Dany Albrecht MD 200 [facility] [place] [address] DM type 2 with diabetic peripheral neuropathy [...] ([facility]vnar) 03/10/2019 Pneumococcal Conjugate Vacci ne, 20-valent ([id number]) 09/19/2021 Pneumococcal Polysaccharide PPV23 (Pneumovax) 09/08/2015 Season [...] further management Dany Albrecht MD Ref: MELISSA HAND[[id number]] [address] [place] [address] [place] [address] (office) [phone] (fax) PCP: MELISSA HAND [address] [place] [address] [place] [address] [phone] documented in this encounter Nursing Notes * [...] bilateral lower legs documented in this encounter Miscellaneous Notes * Addendum Note - Danay Licona LPN - 10/25/2023 4:10 PM EDTAddended by: DANAY LICONA on: 10/25/2023 04:10 PM Modules accepted: Orders documented in this encounter Plan of Treatment Upcoming Encounters Date Type Department Care Team (Late st Contact Info) Description 11/06/2023 11:15 AM EDT Office Visit Urology, [facility] [place] [address] Zbigniew Holder MD [address] [address] 11/27/2023 9:40 AM EDT Office Visit Family Medicine [address] [place] [phone] Melissa Hand MD [address] [place] [address] [place] [address] 01/03/2024 1:00 PM EDT Office Visit Family Medicine [address] [place] [phone] Mony Reid CRNP [address] [place] [address] [place] [address] 01/17/2024 10:00 AM EDT Office Visit Hepatology, [facility] 132 [facility] [place] [address] Jaclyn Jay MD [address] [place] [address] 01/24/2024 9:30 AM EDT Cardiac Studies Cardiology, [facility] 132 [place] [address] [facility] 132 [facility] [place] [address] 02/18/2024 2:45 PM EST Office Visit Hematology/Oncology [facility] 200 [facility] [place] [phone] Blayne Caruso MD 200 [facility] [place] [address] 09/09/2024 1:20 PM EDT Office Visit Dermatology [address] [place] [address] Gaby Pitt PA-C [address] [place] [address] [place] [address] Scheduled Referrals Name Type Priority Associated Diagnoses [...] Documents on File Type Date Recorded 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
--- OUTSIDE RECORDS SUMMARY | 2023-12-30 03:18 | External Medical Summary | Summary of Care ---
Author Name Unknown Organization [facility] [address] [facility] [address] Phone [phone] Care Team Providers Care Instrument Technician Apprentice Name Role Phone Melissa Hand MD Primary Care Prov ider Reason for Visit * Reason Onset Date Comments Home Health 10/09/2023 Encounter Details Date Type Department Care Team (Late st Contact Info) Description 10/09/2023 Telephone Family Medicine [address] [phone] Melissa Hand MD [address] [place] [address] [place] [address] Home Health Allergies Active Allergy Reactions Criticality Noted Date Comments Lisinopril Cough Low 04/25/2020 High potassium documented as of this encounter (statuses as of 10/18/2023) Medications Medication Sig Dispensed Refills Start Date [...] fluid retention 90 Tablet 3 01/17/2023 Active Benzonatate 100 MG Oral CapsuleIndications:V iral URI with cough Take 1 Capsule by mouth 3 times a day as needed for Cough. 50 Capsule 1 01/30/2023 Active Basaglar KwikPen 100 UNIT/ML Subcutaneous Solution [...] long-term current use of insulin ([facility]) test blood sugar 3 times daily dx e11.22 300 Strip 1 07/31/2023 Active Cefdinir 300 MG Oral Capsule (Omnicef)Indications :Acute cystitis with hematuria Take 1 Capsule by mouth in the morning. 7 Capsule 08/05/2023 Active Ciprofloxacin HCl 250 MG Oral Tablet (Cipro) Take 1 Tablet by mouth in the morning and 1 Tablet before bedtime. 14 Tablet 08/05/2023 Active Sulfamethoxazole-Tri methoprim 800-160 MG Oral Tablet (Bactrim DS) Take 1 Tablet by mouth in the morning and 1 Tablet before bedtime. Use as directed.. 14 Tablet 09/30/2023 Active Gabapentin 100 MG Oral Capsule (Neurontin)Indicatio ns:Coccyx pain,Sacral back pain TAKE ONE CAPSULE BY MOUTH EVERY DAY 90 Capsule 10/07/2023 Active documented as of this encounter (statuses as of 10/18/2023) Active Problems Problem Noted Date Diagnosed Date [...] as of this encounter (statuses as of 10/18/2023) Resolved Problems Problem Noted Date Diagnosed Date [...] as of this encounter (statuses as of 10/18/2023) Immunizations Name Administration Dates Next Due Influenza, Whole Virus 01/16/2013,04/20/2011 Pneumococcal Conjugate Vacc, 13 Valent (Prevnar) 03/10/2019 Pneumococcal Conjugate Vacci ne, 20-valent ([id number]) 09/19/2021 Pneumococcal Polysaccharide PPV23 (Pneumovax) 09/08/2015 Season [...] No 08/05/2023 Does the household have a [facility] source [facility]? (Household - for ages [...] 4:04 PM EDT Sexual Orientation Straight 12/29/2020 4 :04 PM EDT Job Start Date Occupation Industry Not on file Not on file Not on file documented as of this encounter Miscellaneous Notes * Telephone Encounter - Zuleima Beard MD - 10/18/2023 12:10 PM EDT Signed * Telephone Encounter - Felicitas Rousseau LPN - 10/18/2023 12:06 PM EDT Order pended Per Elyse she did the Doppler to save patient from coming back. She states the Duplex and Doppler orders go together. Test done and Elyse just needs order signed * Telephone Encounter - Silvia Reyes LPN - 10/18/2023 11:17 AM EDT Message received from Elyse Braga [place] [address].2 VANAPI (Ankle arm index- it is the accompyaning test for the arterial duplex she just had Please advise * Telephone Encounter - Zuleima Beard MD - 10/09/2023 4:34 PM EDT Ordered arterial duplex * Telephone Encounter - Kiesha Casas LPN - 10/09/2023 2:58 PM EDT Concerns Augustus, Calling from: [place] Report/Concerns of: Left toe wounds-anterior garza Vitals: T 97.8 P 70 RR 20 BP 130/72 SP O2 98% room air Lung sounds clear - denies SOB Blood sugar 124 Minimal edema Ieft leg- tight tho. No edema in right leg. Narrative: SUNSHINE Ga calling from [place] -- update on the patient's left foot. Dr. Noe's note - 09/19 - blood blister tip of 1st toe --Larger, pale in color, non blanching Ulcer on left side of foot - scabbed - larger 5th toe under the nail bed - draining blood and on the side - serosanguinous drainage 3rd toe - base of nail bed- serosanguinous Anterior garza, above left ankle - draining serosanguinous 1 x 1 x 0.2 cm Rates pain 09/15. Patient won't stand due to the discomfort. Clean dry dressing on them currently. Sury is going to order calcium alginate. Sury is suspicious of Arterial insufficiency stasis ulcer versus diabetic ulcers. Patient doesn't have an appt with the rn paralegal yet. (Ordered by Dr. Noe) Sacral areas improved since 09/19, nursing monitoring. Increasing nursing visit to 2x weekly if HH can get approval with insurance. Next nurse visit is 10/13. Informed Sury that Dr. Michael Martinez is out until 10/15/23. Sury is asking if it would be appropriate for the patient to have a vascular duplex U/S? Please advise. BRUNOJ C Lads documented in this encounter Plan of Treatment Upcoming Encounters Date Type Department Care Team (Late st Contact Info) Description 10/22/2023 8:20 AM EDT Office Visit [address] [phone] Melissa Hand MD [address] [place] [address] [place] [address] 11/06/2023 11:15 AM EDT Office Visit Urology, [facility] [address] [facility] [place] [address] Zbigniew Holder MD [address] [place] [address] [place] [address] 01/03/2024 1:00 PM EDT Office Visit Family [address] [place] [phone] Mony Reid CRNP [address] [place] [address] [place] [address] 01/17/2024 10:00 AM EDT Office Visit Hepatology, [facility] [address] [facility] [place] [address] Jaclyn Jay MD [address] [place] [address] 01/24/2024 9:30 AM EDT Cardiac Studies Cardiology, [facility] [address] [facility] [place] [address] [place], [facility] [address] [place] [address] 02/18/2024 2:45 PM EST Office Visit Hematology/Oncology [facility] [address] [place] [phone] Blayne Caruso MD [address] [place] [address] 09/09/2024 1:20 PM EDT Office Visit Dermatology [address] [place] [address] Gaby Pitt PA-C [address] [place] [address] [place] [phone] Pending Results Name Type Priority Associated Diagnoses Date /Time VASC ANKLE BRACHIAL INDICES WITHOUT PPG (PAD) Medical Imaging Routine Ulcers of both lower extremities, unspecified ulcer stage (HCC) 10/18/2023 1:30 PM EDT Scheduled Orders Name Type Priority Associated Diagnoses Orde r Schedule VASC ANKLE BRACHIAL INDICES WITHOUT PPG (PAD) Medical Imaging Routine Ulcers of both lower extremities, unspecified ulcer stage (HCC) Expected: 10/18/2023, Expires: 11/17/2024 Health Maintenance Due Date Last Done Comments Cologuard 1994 Sigmoidoscopy 1994 Hepatitis B Vaccine (1 of 3 - Risk 3-dose series) 2009 Fecal Occult Blood Test 03/06/2020 03/06/2019, 03/09 COVID-19 Vaccine ( season) 2022 Mammogram 05/24/2023 05/24/2022, 05/09, 04/24/2021, Additional history exists Nephrology Referral 05/31/2023 05/31/2022 Diabetic Eye Exam 07/13/2023 07/12/2022, , 05/18/2022, [...] 09/20/2023, 0 08/08/2022, 09/19/2021, Additional history exists Colonoscopy 09/13/2029 09/14/2019 Colorectal [...] Not on filedocumented as of this encounter Results * VASC AMBLER ART WALDEMAR KENNY (10/18/2023 12:48 PM EDT) Anatomical Region Laterality Modality Lower Extremity, Vascular Ultras ound Narrative 10/18/2023 1:32 PM EDT VASCULAR LAB RESULTS DATE OF EXAM: 10/18/23 PRESENTING CONDITIONS: nonhealing foot/toe ulcers and pain in legs This is an interpretation of an exam performed at [facility]. PHYSICIAN REPORT: LOWER EXTREMITY ARTERIAL DUPLEX Immediately before proceeding with the vascular lab procedure reported below, the identity of the patient, the correct exam and the correct procedural site were verified. Espinoza scale, color flow and spectral doppler were performed for this examination. Right external iliac artery has a velocity of 86.8 cm/sec with a triphasic waveform. Right common femoral artery has a velocity of 78.4 cm/sec with a triphasic waveform. Right deep femoral artery has a velocity of 41.4 cm/sec with a triphasic waveform. Right superficial femoral artery, at origin has a velocity of 41.5 cm/sec with a triphasic waveform. Right superficial femoral artery, proximal thigh has a velocity of 57.6 cm/sec with a triphasic waveform. Right superficial femoral artery, mid-thigh has a velocity of 52.6 cm/sec with a triphasic waveform. Right superficial femoral artery, distal-thigh has a velocity of 51.6 cm/sec with a triphasic waveform. Right popliteal artery has a velocity of 48.3 cm/sec with a triphasic waveform. Right tibial-peroneal trunk artery has a velocity of 51.7 cm/sec with a triphasic waveform. Right anterior tibial artery could not be identified. Right posterior tibial artery has a velocity of 44.2 cm/sec with a biphasic waveform. Right peroneal has a velocity of 47.3 cm/sec with a biphasic waveform. Left external iliac artery has a velocity of 55.1 cm/sec with a triphasic waveform. Left common femoral artery has a velocity of 72.8 cm/sec with a triphasic waveform. Left deep femoral artery has a velocity of 54.1 cm/sec with a triphasic waveform. Left superficial femoral artery, at origin has a velocity of 64.0 cm/sec with a triphasic waveform. Left superficial femoral artery, proximal thigh has a velocity of 56.9 cm/sec with a biphasic waveform. Left superficial femoral artery, mid-thigh has a velocity of 72.0 cm/sec with a biphasic waveform. Left superficial femoral artery, distal-thigh has a velocity of 79.6 cm/sec with a biphasic waveform. Left popliteal artery has a velocity of 91.5 cm/sec with a biphasic waveform. Left tibial-peroneal trunk artery could not be identified. Left anterior tibial artery could not be identified. Left posterior tibial artery has a velocity of 72.3 cm/sec with a biphasic waveform. Left peroneal artery has a velocity of 45.9 cm/sec with a biphasic waveform.. CONCLUSIONS: The right lower extremity arteries demonstrate no significant stenosis. The left lower extremity arteries demonstrate no significant stenosis. Melissa Martinez MD RAD VASCUL AR documented in this encounter Visit Diagnoses Diagnosis Ulcers of both lower extremities, unspecified ulcer stage (HCC)- Primary Ulcers of both lower extremities, unspecified ulcer stage (HCC) documented in this encounter Advance Directives Documents on File Type Date Recorded Patient [employer] Lab Technician Expl anation POLST 12/20/2022 2:13 PM POLST (Rosen ited DNR) Care Teams Instrument Technician Apprentice Relationship Specialty Start Date End Date Melissa Hand MD [address] [place] [address] [place] [id number] PCP - General Family Medicine 03/11/19 documented as of this encounter
--- OUTSIDE RECORDS SUMMARY | 2023-12-30 03:18 | External Medical Summary ---
Author Name Unknown Address Unknown Organization K01:[facility] - [address] [facility] [address] Laboratory Report Ordering Provider Test Date Status SERENITYGABRIEL MENDEZ 10/22/2023 09:42:04 Final Observation Date Value Abnormality Reference (Units ) Status HbA1C 10/22/2023 09:42:04 7.7 Above high normal 4. 0-5.6 (%) Final The use of HbA1c to monitor glycemic status is based on normal hemoglobin and HbA composition. This test should not be used in patients with abnormal hemoglobin that affects the half life of the red blood cell or the in vivo glycation rates. Glucose, estimated average 10/22/2023 09:42:04 174 Above high normal <126 (mg/dL) Josh fuentes Performing Location [facility] - [address] [facility] [address]
--- OUTSIDE RECORDS SUMMARY | 2023-12-30 03:18 | External Medical Summary | Summary of Care ---
Author Name Unknown Organization [facility] Address [address] [facility] [place] [address] Phone [phone] Care Team Providers Care Procurement Forester Name Role Phone Melissa Hand MD Primary Care Prov ider Reason for Visit * Reason Comments Outpatient Testing Encounter Details Date Type Department Care Team (Late st Contact Info) Description 09/26/2023 9:10 AM EDT Laboratory Laboratory [address] [place] [phone] , Specimen Drop Off [address] [place] [address] Recurrent UTI Allergies Active Allergy Reactions Criticality Noted Date Comments Lisinopril Cough Low 04/25/2020 High potassium documented as of this encounter (statuses as of 09/26/2023) Medications Medication Sig Dispensed Refills Start Date [...] for Cough. 50 Capsule 1 01/30/2023 Active Gabapentin 100 MG Oral Capsule (Neurontin)Indicatio ns:Coccyx pain,Sacral back pain TAKE ONE CAPSULE BY MOUTH EVERY DAY 90 Capsule 1 03/18/2023 Active Basaglar KwikPen 100 UNIT/ML Subcutaneous Solution [...] long-term current use of insulin ([facility]) Inject 0.75 mg under the skin once [...] long-term current use of insulin ([facility]) test blood sugar 3 times daily dx e11.22 300 Strip 1 07/31/2023 Active Cefdinir 300 MG Oral Capsule (Omnicef)Indications :Acute cystitis with hematuria Take 1 Capsule by mouth in the morning. 7 Capsule 08/05/2023 Active Ciprofloxacin HCl 250 MG Oral Tablet (Cipro) Take 1 Tablet by mouth in the morning and 1 Tablet before bedtime. 14 Tablet 08/05/2023 Active documented as of this encounter (statuses as of 09/26/2023) Active Problems Problem Noted Date Diagnosed Date [...] as of this encounter (statuses as of 09/26/2023) Resolved Problems Problem Noted Date Diagnosed Date [...] as of this encounter (statuses as of 09/26/2023) Immunizations Name Administration Dates Next Due Influenza, Whole Virus 01/16/2013,04/20/2011 Pneumococcal Conjugate Vacc, 13 Valent (Prevnar) 03/10/2019 Pneumococcal Conjugate Vacci ne, 20-valent ([id number]) 09/19/2021 Pneumococcal Polysaccharide PPV23 (Pneumovax) 09/08/2015 Season [...] No 08/05/2023 Does the household have a [facility] source [facility] income? (Household - for ages [...] Care Team (Late st Contact Info) Description 10/04/2023 9:45 AM EDT Imaging Radiology [address] [place] [address] 10/22/2023 8:20 AM EDT Office Visit Family Medicine [address] [place] [phone] Melissa Hand MD [address] [place] [address] [place] [address] 11/06/2023 11:15 AM EDT Office Visit Urology, [facility] [address] [facility] [place] [address] Zbigniew Holder MD [address] [place] [address] 01/03/2024 1:00 PM EDT Office Visit Family Medicine [address] [place] [phone] Mony Reid CRNP [address] [place] [address] [place] [address] 01/17/2024 10:00 AM EDT Office Visit Hepatology, [facility] [address] [facility] [place] [address] Jaclyn Jay MD [address] [place] [address] 01/24/2024 9:30 AM EDT Cardiac Studies Cardiology, [facility] [address] [facility] [place] [address] [facility] [address] 02/18/2024 2:45 PM EST Office Visit Hematology/Oncology [facility] [place] [phone] Blayne Caruso MD [address] [place] [address] 09/09/2024 1:20 PM EDT Office Visit Dermatology [address] [place] [address] Gaby Pitt PA-C [address] [place] [address] [place] [address] Pending Results Name Type Priority Associated Diagnoses Date /Time CULTURE, URINE, QUANTITATIVE Lab Routine Recurrent UTI 09/26/2023 9:09 AM EDT Health Maintenance Due Date Last Done Comments Cologuard 1994 Sigmoidoscopy 1994 Hepatitis B (1 of 3 - Risk 3-dose series) 2009 Fecal Occult Blood Test 03/06/2020 03/06/2019, 03/09 COVID-19 Vaccine ( season) 2022 Mammogram 05/24/2023 05/24/2022, 05/09, 04/24/2021, Additional history exists Nephrology Referral 05/31/2023 05/31/2022 Diabetic Eye Exam 07/13/2023 07/12/2022, , 05/18/2022, Additional history exists Phosphate 11/21/2023 11/20/2022, 08/0 06/2022, 02/22/2022, Additional history exists HbA1c 12/15/2023 06/14/2023, 08/0 [...] Completed 09/19/2021, 03/10/2019, 02/11/2019, Additional history exists Influenza Vaccine (FLU shot) Completed 04/2022, 01/19/2022, 03/16/2021, Additional history exists GARDASIL-HPV IMMUNIZATION SERIES Aged Out No longer eligible based on [...] Documents on File Type Date Recorded Patient Substation Operator Transforming Expl anation POLST 12/20/2022 2:13 PM POLST (Rosen ited DNR) Care Teams Procurement Forester Relationship Specialty Start Date End Date Melissa Hand MD [address] [place] [address] [place] [phone] PCP - General Family Medicine 03/11/19 documented as of this encounter
--- OUTSIDE RECORDS SUMMARY | 2023-12-30 03:18 | External Medical Summary | Summary of Care ---
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 [facility] What condition is this patient being seen for? 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 [facility] Are you referring the patient for Mohs Surgery and have a current positive skin cancer biopsy result? No What is the reason for the patient referral? Other Comments Suspect calciphylaxis - needs biopsy Reason for Visit * Reason Comments Follow Up 3 mo f/u Encounter Details Date Type Department Care Team (Late st Contact Info) Description 10/22/2023 8:20 AM EDT Office Visit Family Medicine [address] [place] [phone] Melissa Hand MD [address] [place] [address] [place] [phone] Type 2 diabetes mellitus with stage 4 chronic kidney disease, with long-term current use of insulin ([facility])*; Chronic systolic congestive heart failure (HCC); Ulcers of both lower extremities, unspecified ulcer stage (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) Allergies Active Allergy Reactions Criticality [...] per day 200 Each 3 3 Active Torsemide 10 MG Oral Tablet (Demadex) Take 1 tablet in the morning. May take an additional tablet as needed for swelling, fluid retention 90 Tablet 3 3 Active Basaglar KwikPen 100 UNIT/ML [...] 10/22/2023 Trulicity 0.75 MG/0.5ML Subcutaneous Solution Pen-injector (Dulaglutide)Indic [...] Use as directed.. 14 Tablet 4 Active Gabapentin 100 MG Oral Capsule (Neurontin)Indicat ions:Coccyx pain,Sacral back pain TAKE ONE CAPSULE BY MOUTH EVERY DAY 90 Capsule 4 Active Benzonatate 100 MG Oral CapsuleIndications :Viral URI with cough Take 1 Capsule by mouth 3 times a day as needed for Cough. 50 Capsule 1 3 10/22/19 24 Discontinued Cefdinir 300 MG Oral Capsule (Omnicef)Indicatio ns:Acute cystitis with hematuria Take 1 Capsule by mouth in the morning. 7 Capsule 4 10/22/19 24 Discontinued Ciprofloxacin HCl 250 MG Oral Tablet (Cipro) Take 1 Tablet by mouth in the morning and 1 Tablet before bedtime. 14 Tablet 4 10/22/19 24 Discontinued documented as of this encounter [...] (Prevnar) 03/10/2019 Pneumococcal Conjugate Vacci ne, 20-valent ([id number]) 09/19/2021 Pneumococcal Polysaccharide PPV23 (Pneumovax) 09/08/2015 Season Influenza, Quad, PF, Adjuvanted, 65+ Yrs, IM (FLUAD) 01/21/2020 Seasonal Influenza, Quadriva lent Hd (Fluzone Hd) 03/08/2023,01/19/2022,03/16/2021 Seasonal Influenza, Trivalen t, Adjuvanted, 65+ yrs 03/10/2019 Zoster Vaccine Recombinant (Shingrix) 12/16/2019 ,09/26/2019 documented as of this encounter Social History Tobacco Use Types Packs/Day Years Used Date Smoking Tobacco: Never Smokeless Tobacco: Never Tobacco Cessation:Counseling Given: Not Answered Alcohol Use Standard Drinks/Week Comments Never 0 [...] Sign Reading Time Taken Comments Blood Pressure 118/50 10/22/2023 8:28 AM EDT Pulse 73 10/22/2023 8:28 AM EDT Temperature 36.3 C (97.3 F) 10/22/2023 8:28 AM ED T Respiratory Rate - - Oxygen Saturation 97% 10/22/2023 8:28 AM EDT Inhaled Oxygen Concentration - - Weight 57.2 kg (126 lb) 10/22/2023 8:28 AM EDT Height - - Body Mass Index 20.97 12/31/2022 1:02 PM EDT documented in this encounter Progress Notes * Michael Martinez, Melissa Acosta MD - 10/22/2023 8:45 AM EDT Images from the original note were not included. SUBJECTIVE: Radha Ribera is a 72 year old female. Chief Complaint Patient presents with Follow Up 3 mo f/u HPI: Radha is here with her BALDOMERO Pro for follow up. PAD/ Leg wounds. Severe atherosclerotic calcification of bilat lower extremities noted during hospitalization in the past; recent arterial dopplers showed no arterial stenosis. Denies claudication/ pain. Has developed leg ulcerations left worse than right over the past 1-2 months. Receiving wound care with minimal improvement. Goals of care. Had palliative care consult in April. POLST reviewed, DNR limited. DM2. Last A1C 7.8%. Improved from 8.1. At goal. Taking trulicity, basaglar. Lipids. Last LDL 30. On crestor 10mg. CKD4. Last GFR 24 and Cr 2.3. Overdue for appt with nephro . Currently being treated for UTI per Urology. CHF, ischemic cardiomyopathy, severe MR and Tricuspid regurg, , s/p AICD. EF showing severely dilated LV with EF 15-20%, diffuse hypokinesis to akinesis, AV stenosis suspected. JEREMIE. Now on CPAP and sleeping MUCH better with it. Pancytopenia. Chronic, following with Dr Caruso outpatient. Depression. Improved with sertraline 100mg; great support from her family. They do note irritability in the evenings. Postmenopausal bleeding. Pelvic US from August 2022 showed area in cervix concerning for fibroid versus cyst. Endometrial biopsy was inconclusive. No longer bleeding; but did have heavy bleeding at the onset of this episode. Currently asymptomatic. History falls. Has completed PT/OT and gait much improved. House has grab bars. Son working with her on safe routines. Family is with her 29/10. Supportive family. Liver. Fibrosis noted on recent US, with small ascites. LFTs elevated. Referred to GI who suspects cirrhosis 2/2 CHF. Prev: Vaccines, Mammo Patient Active Problem List Diagnosis Essential hypertension [...] sacrum, limited to breakdown of skin (HCC) Current Outpatient Medications Medication Sig Dispense Refill [...] OPEN SORES IF NEEDED 360 mL 2 Metoprolol Succinate ER 50 MG Oral Tablet Extended Release 24 Hour (toPROL XL) TAKE ONE TABLET BY MOUTH IN THE MORNING AND BEFORE BEDTIME 180 Tablet 3 BD Pen Needle Raquel U/F 32G X 4 MM (Insulin Pen Needle) use with insulin and victoza--2 needles per day 200 Each 3 Torsemide 10 MG Oral Tablet (Demadex) [...] before bedtime. Use as directed.. 14 Tablet 0 Gabapentin 100 MG Oral Capsule (Neurontin) TAKE ONE CAPSULE BY MOUTH EVERY DAY 90 Capsule 0 Trulicity 1.5 MG/0.5ML Subcutaneous Solution Pen-injector (Dulaglutide) Inject 1.5 mg under the skin once a week. (Patient not taking: Reported on 10/22/2023) 2 mL 5 No current facility-administered medications for this visit. Current and discharge medications have been reconciled. Review of patient's allergies indicates: Allergen Reactions Lisinopril Cough High potassium OBJECTIVE: BP 118/50 | Pulse 73 | Temp 36.3 C (97.3 F) (Tympanic) | Wt 57.2 kg (126 lb) | SpO2 97% | BMI 20.97 kg/m | BSA 1.62 m REVIEW OF SYSTEMS: PHYSICAL EXAM: BP 118/50 | Pulse 73 | Temp 36.3 C (97.3 F) (Tympanic) | Wt 57.2 kg (126 lb) | SpO2 97% | BMI 20.97 kg/m | BSA 1.62 m Physical Exam Constitutional: Appearance: Normal appearance. Cardiovascular: Rate and Rhythm: Normal rate and regular rhythm. Heart sounds: Murmur heard. Comments: Bilat DP pulses 1+ bilat; Pulmonary: Effort: Pulmonary effort is normal. Abdominal: General: Abdomen is flat. Palpations: Abdomen is soft. Musculoskeletal: Right lower leg: Edema present. Left lower leg: Edema present. Comments: Trace bilat LE edema Skin: Findings: Lesion present. Comments: Dusky discoloration of bilat feet Open wounds to left garza, left lateral foot with surrounding duskiness of skin Neurological: Mental Status: She is alert. 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) - DERMATOLOGY REFERRAL OP - NEPHROLOGY REFERRAL OP - RENAL FUNCTION PANEL; Future; Expected date: 10/22/2023 - HEMOGLOBIN A1C; Future; Expected date: 10/22/2023 Follow Up: Return in about 4 weeks (around 11/19/2023) for Return with Physician. | For: Return withPhysician PLAN: Necrotic appearing skin wounds with ischemic appearance of bilat lower legs Recent arterial dopplers showed NO stenosis but did show heavy calcification Suspect calciphylaxis of her lower legs in context of CKD4 Recommend urgent derm consult for biopsy and urgent nephrology consult for diagnosis/treatment Slow decline over past 12 months in context of CHFrEF 20%, CKD4, Liver fibrosis. Also Post menopausal bleeding that has stopped. CKD 4 is stable. CHFrEF, stable. Pancytopenia - stable April palliative consult to discuss goals of care/ quality of life - declined hospice care at this time; DNR-limited. Follow up in 1 month Melissa Tovar MD 45 mins spent with patient > 50% counselling and coordinating care. documented in this encounter Nursing Notes * Felicitas Rousseau LPN - 10/22/2023 8:28 AM EDT Chief Complaint Patient presents with Follow Up 3 mo f/u Leg artery studies done on 10/18/23 NORMAL arterial flow Home Health changes dressing every other day and due for dressing change today Open areas on Left Tip of Great toe and Left skin area The patient has been properly identified by confirmation of name and date of . documented in this encounter Plan of Treatment Upcoming Encounters Date Type Department Care Team (Late st Contact Info) Description 11/06/2023 11:15 AM EDT Office Visit Urology, [facility] [address] [facility] [place] [address] Zbigniew Holder MD [address] [place] [address] 01/03/2024 1:00 PM EDT Office Visit Family Medicine [address] [phone] [address] [place] [address] 01/17/2024 10:00 AM EDT Office Visit Hepatology, [facility] [address] [facility] [place] [address] Jaclyn Jay MD [address] [facility] [place] [address] 01/24/2024 9:30 AM EDT Cardiac Studies Cardiology, [address] [place] [address] Natanael Cast [address] [place] [address] 02/18/2024 2:45 PM EST Office Visit Hematology/Oncology [facility] [place] [address] [facility] [place] [phone] Blayne Caruso MD [address] [place] [address] 09/09/2024 1:20 PM EDT Office Visit Dermatology [address] [place] [address] Gaby Pitt PA-C [address] [place] [address] [place] [id number] Pending Results Name Type Priority Associated Diagnoses [...] layer exposed (HCC) 10/22/2023 9:42 AM EDT Scheduled Orders Name Type Priority Associated Diagnoses Orde r Schedule RENAL FUNCTION PANEL Lab Routine Type 2 diabetes mellitus with stage 4 chronic kidney disease, with long-term current use of insulin (HCC) 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) Expected: 10/22/2023 (Approximate), Expires: 10/21/2024 HEMOGLOBIN A1C Lab Routine Type 2 diabetes mellitus with stage 4 chronic kidney disease, with long-term current use of insulin (HCC) 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) Expected: 10/22/2023 (Approximate), Expires: 10/21/2024 ALBUMIN / CREATININE RATIO, URINE Lab Routine Type 2 diabetes mellitus with stage 4 chronic kidney disease, with long-term current use of insulin (HCC) Expected: 10/22/2023, Expires: 10/21/2024 Scheduled Referrals Name Type Priority Associated Diagnoses Orde r Schedule DERMATOLOGY REFERRAL OP Referral Within 3 days (urgent) 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) Ordered: 10/22/2023 NEPHROLOGY REFERRAL OP Referral Within 3 days [...] 06/2022, 05/18/2022, Additional history exists Albumin/Creatinine Ratio 01/01/20242 023, 11/08/2022, 08/10/2022, Additional history exists GFR [...] disease, with long-term current use of insulin (HCC)- Primary Chronic systolic congestive heart failure (HCC) Chronic systolic heart failure Ulcers of both lower extremities, unspecified ulcer stage (HCC) 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
--- OUTSIDE RECORDS SUMMARY | 2023-12-30 03:18 | External Medical Summary | Summary of Care ---
Author Name Unknown Organization [facility] Address [address] [facility] [place] [address] Phone [phone] Care Team Providers Care Electromechanical Inspector Name Role Phone Melissa Hand MD Primary Care Prov ider Encounter Details Date Type Department Care Team (Late st Contact Info) Description 09/30/2023 Result Scan Unspecified Department Cande Green, DO [address] [facility] [place] [phone] <No scans attached> Allergies Active Allergy Reactions Criticality Noted Date Comments Lisinopril Cough Low 04/25/2020 High potassium documented as of this encounter (statuses as of 09/30/2023) Medications Medication Sig Dispensed Refills Start Date [...] :Recurrent major depressive disorder, in full remission ([facility]),Poor appetite TAKE ONE TABLET BY MOUTH AT BEDTIME 30 Tablet 5 05/22/2023 Active Sertraline HCl 100 MG Oral Tablet (Zoloft)Indications: Recurrent major depressive disorder, in full remission ([facility]) Take 1.5 Tablets by mouth at bedtime. [...] disease, with long-term current use of insulin ([facility]) test blood sugar 3 times daily dx [...] as of this encounter (statuses as of 09/30/2023) Active Problems Problem Noted Date Diagnosed Date [...] as of this encounter (statuses as of 09/30/2023) Resolved Problems Problem Noted Date Diagnosed Date [...] as of this encounter (statuses as of 09/30/2023) Immunizations Name Administration Dates Next Due Influenza, Whole Virus 01/16/2013,04/20/2011 Pneumococcal Conjugate Vacc, 13 Valent (Prevnar) 03/10/2019 Pneumococcal Conjugate Vacci ne, 20-valent ([id number]) 09/19/2021 Pneumococcal Polysaccharide PPV23 (Pneumovax) 09/08/2015 Season [...] Description 10/04/2023 9:45 AM EDT Imaging Radiology [address] [place] [address] 10/22/2023 8:20 AM EDT Office Visit Family Medicine [address] [place] [phone] Melissa Hand MD [address] [place] [address] [place] [address] 11/06/2023 11:15 AM EDT Office Visit Urology, [address] [place] [address] Zbigniew Holder MD [address] [place] [address] [place] [address] 01/03/2024 1:00 PM EDT Office Visit Family Medicine [address] [place] [phone] Mony Reid CRNP [address] [place] [address] [place] [address] 01/17/2024 10:00 AM EDT Office Visit Hepatology, [facility] [address] [facility] [place] [address] Jaclyn Jay MD [address] [place] [address] 01/24/2024 9:30 AM EDT Cardiac Studies Cardiology, [facility] 132 [facility] [place] [address] [facility] [address] [facility] [place] [address] 02/18/2024 2:45 PM EST Office Visit Hematology/Oncology [facility] 200 [facility] [place] [phone] Blayne Caruso MD [address] [facility] [place] [address] 09/09/2024 1:20 PM EDT Office Visit Dermatology [address] [place] [address] Gaby Pitt PA-C [address] [place] [address] [place] [address] Health Maintenance Due Date Last Done Comments [...] Not on filedocumented as of this encounter Procedures Procedure Name Priority Date/Time Associated Diagnosis Comments CARDIOLOGY SCANNED RESULT 09/30/2023 documented in this encounter Results * CARDIOLOGY SCANNED RESULT (09/30/2023) 09/30/2023 Cande Mary Hannahdevon DO OTHER documented in this encounter Advance Directives Documents on File Type Date Recorded Patient Manager Medical Writing Expl anation POLST 12/20/2022 2:13 PM POLST (Rosen ited DNR) Care Teams Electromechanical Inspector Relationship Specialty Start Date End Date Melissa Hand MD [address] [place] [address] [place] [phone] PCP - General Family Medicine 03/11/19 documented as of this encounter
--- OUTSIDE RECORDS SUMMARY | 2023-12-30 03:18 | External Medical Summary | Summary of Care ---
Author Name Unknown Organization [facility] Address [address] [facility] [place] [address] Phone [phone] Care Team Providers Care Fish House Worker Name Role Phone Melissa Hand MD Primary Care Prov ider Reason for Visit * Reason Comments Outpatient Testing Encounter Details Date Type Department Care Team (Late st Contact Info) Description 10/11/2023 9:50 AM EDT Laboratory Laboratory [address] [place] [phone] , Specimen Drop Off [address] [place] [address] Arrived Allergies Active Allergy Reactions Criticality Noted Date Comments Lisinopril Cough Low 04/25/2020 High potassium documented as of this encounter (statuses as of 10/11/2023) Medications Medication Sig Dispensed Refills Start Date [...] insulin ([facility]) Inject 1.5 mg under the skin once a week. 2 mL 5 05/10/2023 Active Trulicity 0.75 MG/0.5ML Subcutaneous Solution Pen-injector (Dulaglutide)Indicat ions:Type 2 diabetes mellitus with stage 4 chronic kidney disease, with long-term current use of insulin ([facility]) Inject 0.75 mg under the skin once [...] Recurrent major depressive disorder, in full remission ([facility]) Take 1.5 Tablets by mouth at bedtime. [...] as of this encounter (statuses as of 10/11/2023) Active Problems Problem Noted Date Diagnosed Date [...] as of this encounter (statuses as of 10/11/2023) Resolved Problems Problem Noted Date Diagnosed Date [...] defibrillator in situ 09/25/2016 02/18/2019 Ischemic cardiomyopathy 04/19/2016/11/2017 CKD (chronic kidney disease) stage 3, GFR [...] as of this encounter (statuses as of 10/11/2023) Immunizations Name Administration Dates Next Due Influenza, Whole Virus 01/16/2013,04/20/2011 Pneumococcal Conjugate Vacc, 13 Valent (Prevnar) 03/10/2019 Pneumococcal Conjugate Vacci ne, 20-valent ([id number]) 09/19/2021 Pneumococcal Polysaccharide PPV23 (Pneumovax) 09/08/2015 Season [...] 8:20 AM EDT Office Visit Family Medicine [address] [place] [phone] Melissa Hand MD [address] [place] [address] [place] [address] 11/06/2023 11:15 AM EDT Office Visit Urology, [facility] [address] [facility] [place] [address] Zbigniew Holder MD 27 [place] [address] 01/03/2024 1:00 PM EDT Office Visit Family Medicine [address] [place] [phone] Mony Reid [address] [place] [address] 01/17/2024 10:00 AM EDT Office Visit Hepatology, [facility] [place] [address] Jaclyn Jay MD [address] [facility] [place] [address] 01/24/2024 9:30 AM EDT Cardiac Studies Cardiology, [facility] [address] [facility] [place] [address] Natanael Cast [facility] [place] [address] 02/18/2024 2:45 PM EST Office Visit Hematology/Oncology [facility] [address] [place] [phone] Blayne Caruso MD [address] [place] [address] 09/09/2024 1:20 PM EDT Office Visit Dermatology [address] [place] [address] Gaby Pitt PA-C [address] [place] [address] [place] [address] Health Maintenance Due Date Last Done Comments [...] Documents on File Type Date Recorded Patient Yarn Handler Expl anation POLST 12/20/2022 2:13 PM POLST (Rosen ited DNR) Care Teams Fish House Worker Relationship Specialty Start Date End Date Melissa Hand MD [address] [place] [address] [place] [address] PCP - General Family Medicine 03/11/19 documented as of this encounter
--- OUTSIDE RECORDS SUMMARY | 2023-12-30 03:18 | External Medical Summary ---
Author Name Unknown Address Unknown Organization K01:[facility] [place] [address] [place] [address] Laboratory Report Ordering Provider Test Date Status GABRIEL BENTON 10/22/2023 09:53:29 Final Normal: <30 mg/g creatinine< br/>High: 30-300 mg/g creatinine
Very High: >300 mg/g creatinine
Nephrotic: >2200 mg/g creatinine Observation Date Value Abnormality Reference (Units ) Status Albumin, Urine 10/22/2023 09:53:29 22.70 (mg/dL) Final Creatinine, Urine 10/22/2023 09:53:29 47 (mg/dL) Final Albumin/Creatinine [Mass Ratio] in Urine 10/22/2023 09:53:29 483 Above high normal <30 (mg/g Creat) Final Performing Location [facility] [place] [address] [place] [address]
--- OUTSIDE RECORDS SUMMARY | 2023-12-30 03:18 | External Medical Summary | Summary of Care ---
Author Name Unknown Organization [facility] Address [address] [place] [facility] [address] Phone [phone] Care Team Providers Care Photographer News Name Role Phone Melissa Hand MD Primary Care Prov ider Reason for Visit * Reason Comments eRx-Medication Refill Encounter Details Date Type Department Care Team (Late st Contact Info) Description 10/06/2023 Refill Family Medicine [address] [phone] Kyree Sainz MD [address] [place] [address] [place] [address] Coccyx pain; Sacral back pain Allergies Active Allergy Reactions Criticality Noted Date Comments Lisinopril Cough Low 04/25/2020 High potassium documented as of this encounter (statuses as of 10/07/2023) Medications Medication Sig Dispensed Refills Start Date [...] 08/22/2022 Active Ketoconazole 2 % External Shampoo (Nizoral)Indicatio [...] 3 01/17/2023 Active Benzonatate 100 MG Oral CapsuleIndications :Viral [...] Active Trulicity 0.75 MG/0.5ML Subcutaneous Solution Pen-injector (Dulaglutide)Indic [...] disease, with long-term current use of insulin ([facility]) test blood sugar 3 times daily dx e11.22 300 Strip 1 07/31/2023 Active Cefdinir 300 MG Oral Capsule (Omnicef)Indicatio ns:Acute cystitis with hematuria Take 1 Capsule by mouth in the morning. 7 Capsule 08/05/2023 Active Ciprofloxacin HCl 250 MG Oral Tablet (Cipro) Take 1 Tablet by mouth in the morning and 1 Tablet before bedtime. 14 Tablet 08/05/2023 Active Sulfamethoxazole-T rimethoprim 800-160 MG Oral Tablet (Bactrim DS) Take 1 Tablet by mouth in the morning and 1 Tablet before bedtime. Use as directed.. 14 Tablet 09/30/2023 Active Gabapentin 100 MG Oral Capsule (Neurontin)Indicat ions:Coccyx pain,Sacral back pain TAKE ONE CAPSULE BY MOUTH EVERY DAY 90 Capsule 10/07/2023 Active Gabapentin 100 MG Oral Capsule (Neurontin)Indicat ions:Coccyx pain,Sacral back pain TAKE ONE CAPSULE BY MOUTH EVERY DAY 90 Capsule 1 03/18/2023 Discontinue d(Refill) documented as of this encounter (statuses as of 10/07/2023) Active Problems Problem Noted Date Diagnosed Date [...] as of this encounter (statuses as of 10/07/2023) Resolved Problems Problem Noted Date Diagnosed Date [...] as of this encounter (statuses as of 10/07/2023) Immunizations Name Administration Dates Next Due Influenza, Whole Virus 01/16/2013,04/20/2011 Pneumococcal Conjugate Vacc, 13 Valent (Prevnar) 03/10/2019 Pneumococcal Conjugate Vacci ne, 20-valent ([id number]) 09/19/2021 Pneumococcal Polysaccharide PPV23 (Pneumovax) 09/08/2015 Season [...] Telephone Encounter - Melissa Hand MD - 10/07/2023 11:42 AM EDTSigned Prescriptions: Disp Refills Gabapentin 100 MG Oral Capsule (Neurontin) 90 Cap*0 Sig: TAKE ONE CAPSULE BY MOUTH EVERY DAY Authorizing Provider: MELISSA HAND * Telephone Encounter - Kiesha Virgen CMA - 10/07/2023 8:21 AM EDTPending Prescriptions: Disp Refills Gabapentin 100 MG Oral Capsule [Pharmacy M*90 Cap*0 Sig: TAKE ONE CAPSULE BY MOUTH EVERY DAY * Telephone Encounter - Kiesha Virgen CMA - 10/07/2023 8:21 AM EDT Pending Prescriptions: Disp Refills Gabapentin 100 MG Oral Capsule (Neurontin*90 Cap*0 Sig: TAKE ONE CAPSULE BY MOUTH EVERY DAY Last Visit: 07/29/2023 (in office), Visit date not found (telemedicine) Next Visit: 10/22/2023 Last date the medication was ordered: 03/18/2023 Patient Active Problem List Diagnosis Essential hypertension [...] sacrum, limited to breakdown of skin (HCC) Labs: Lab Results Component Value Date/Time CREATININE - [facility] 1.8 (H) 07/24/2023 06:20 AM CREATININE - [facility] 1.8 (H) 04/25/2020 02:16 PM CREATININE, RANDOM URINE - [facility] 62 12/31/2022 01:25 PM CREATININE, RANDOM URINE - [facility] 112 11/16/2019 02:03 PM CREATININE-[facility] 1.93 (A) 11/07/2019 12:00 AM Lab Results Component Value Date/Time POTASSIUM - [facility] 4.9 07/24/2023 06:20 AM POTASSIUM - [facility] 5.3 (H) 04/25/2020 02:16 PM POTASSIUM-[facility] 5.1 11/07/2019 12:00 AM Lab Results Component Value Date/Time TSH - [facility] 2.15 08/26/2019 03:00 PM TSH - [facility] 1.630 03/04/2019 12:00 AM Lab Results Component Value Date/Time LDL (CALCULATED)-[facility] 74.40 05/27/2018 12:00 AM LDL (CALCULATED)-[facility] 74.40 05/27/2018 12:00 AM LDL CHOLESTEROL (CALCULATED) - [facility] 30 06/14/2023 08:40 AM LDL CHOLESTEROL (CALCULATED) - [facility] 23 05/18/2022 03:24 PM LDL CHOLESTEROL (DIRECT MEASURE) - [facility] 39 03/30/2021 12:35 PM LDL CHOLESTEROL (DIRECT MEASURE) - [facility] 46 04/25/2020 02:16 PM LDL CHOLESTEROL (DIRECT MEASURE) - [facility] 88 06/25/2018 10:20 AM Lab Results Component Value Date/Time ALT - [facility] 28 06/14/2023 08:40 AM ALT - [facility] 18 03/13/2019 11:20 AM Hemoglobin AIC Results: Lab Results Component Value Date/Time HEMOGLOBIN A1C - [facility] 7.8 (H) 06/14/2023 08:40 AM HEMOGLOBIN A1C - [facility] 8.1 (H) 11/08/2022 10:39 AM HEMOGLOBIN A1C - [facility] 6.9 (H) 05/18/2022 03:24 PM HEMOGLOBIN A1C - [facility] 6.4 (H) 04/25/2020 02:16 PM HEMOGLOBIN A1C - [facility] 9.4 (H) 11/16/2019 02:03 PM HEMOGLOBIN A1C - [facility] 6.6 (H) 08/26/2019 03:00 PM * Telephone Encounter - Matheus Melchor - 10/07/2023 4:24 AM EDTPending Prescriptions: Disp Refills Gabapentin 100 MG Oral Capsule [Pharmacy M*90 Cap*0 Sig: TAKE ONE CAPSULE BY MOUTH EVERY DAY documented in this encounter Plan of Treatment Upcoming Encounters Date Type Department Care Team (Late st Contact Info) Description 10/22/2023 8:20 AM EDT Office Visit Family [address] [phone] Melissa Hand MD [address] [place] [address] [place] [address] 11/06/2023 11:15 AM EDT Office Visit Urology, [facility] 132 [facility] [place] [address] Zbigneiw Holder MD [address] [place] [address] 01/03/2024 1:00 PM EDT Office Visit Family Medicine [address] [phone] Mony Reid CRNP [address] [place] [address] [place] [address] 01/17/2024 10:00 AM EDT Office Visit Hepatology, [facility] 132 [facility] [place] [address] Jaclyn Jay MD [address] [place] [address] 01/24/2024 9:30 AM EDT Cardiac Studies Cardiology, [facility] 132 [facility] [place] [address] [facility] 132 [facility] [place] [address] 02/18/2024 2:45 PM EST Office Visit Hematology/Oncology [facility] 200 [facility] [place] [phone] Blayne Caruso MD 200 [facility] [place] [address] 09/09/2024 1:20 PM EDT Office Visit Dermatology [address] [place] [address] Gaby Pitt PA-C [address] [place] [address] [place] [address] Health Maintenance Due Date Last Done Comments [...] Completed 09/19/2021, 03/10/2019, 02/11/2019, Additional history exists GARDASIL-HPV IMMUNIZATION SERIES Aged Out No longer eligible based on patient's age to complete this topic MENINGOCOCCAL (MENACTRA/MENVEO) Aged Out No longer eligible based on patient's age to complete this topic documented as of this encounter Medical Devices Not on filedocumented as of this encounter Visit Diagnoses Diagnosis Coccyx pain Other disorder of coccyx Sacral back pain Disorders of sacrum documented in this encounter Advance Directives Documents on File Type Date Recorded Patient Winding Operator Expl anation POLST 12/20/2022 2:13 PM POLST (Rosen ited DNR) Care Teams Photographer News Relationship Specialty Start Date End Date Melissa Hand MD [address] [place] [address] [place] [phone] PCP - General Family Medicine 03/11/19 documented as of this encounter
--- OUTSIDE RECORDS SUMMARY | 2023-12-30 03:18 | External Medical Summary | Summary of Care ---
Author Name Unknown Organization [facility] Address [address] [facility] [address] Phone [phone] Care Team Providers Care Cable Television Program Director Name Role Phone Melissa Hand MD Primary Care Prov ider Reason for Visit * Reason Onset Date Comments Home Health 09/27/2023 Encounter Details Date Type Department Care Team (Late st Contact Info) Description 09/27/2023 Telephone Family Medicine [address] [phone] Melissa Hand MD [address] [place] [address] [place] [address] Home Health Allergies Active Allergy Reactions Criticality Noted Date Comments Lisinopril Cough Low 04/25/2020 High potassium documented as of this encounter (statuses as of 09/27/2023) Medications Medication Sig Dispensed Refills Start Date [...] Recurrent major depressive disorder, in full remission ([facility]) Take 1.5 Tablets by mouth [...] as of this encounter (statuses as of 09/27/2023) Active Problems Problem Noted Date Diagnosed Date [...] as of this encounter (statuses as of 09/27/2023) Resolved Problems Problem Noted Date Diagnosed Date [...] as of this encounter (statuses as of 09/27/2023) Immunizations Name Administration Dates Next Due Influenza, Whole Virus 01/16/2013,04/20/2011 Pneumococcal Conjugate Vacc, 13 Valent (Prevnar) 03/10/2019 Pneumococcal Conjugate Vacci ne, 20-valent ([id number]) 09/19/2021 Pneumococcal Polysaccharide PPV23 (Pneumovax) 09/08/2015 Season [...] No 08/05/2023 Does the household have a [facility] source of income? (Household - for ages [...] encounter Miscellaneous Notes * Telephone Encounter - Felicitas Rousseau LPN - 09/27/2023 3:58 PM EDT PCP is out of the office until 10/15/23 Will sign when returns * Telephone Encounter - Gisel Rduolph LPN - 09/27/2023 3:26 PM EDT HH Concerns annRPreethi, Calling from: [place] Report/Concerns of: wound on left foot Symptoms: see narrative Vitals: T98 P72 RR18 BP 130/70 SP O2 92 RA I questioned this. Alison stated her hands were cold, not recheck no of sob noted Lung sounds clear Narrative: Alison is adding nurse visit to continue to see pt once a week for wound monitoring. Pt hasa blistered area on left big toe and scabbed area on left pinkie toe base. Big toe tx is to cleanse, dry and apply bandage to cover. Pinkie base tx is to cleanse and leave open to area. Alison will send orders to be signed. Call back Alison if there are any concern or questions [phone] documented in this encounter Plan of Treatment Upcoming Encounters Date Type Department Care Team (Late st Contact Info) Description 10/04/2023 9:45 AM EDT Imaging Radiology [address] [place] [address] 10/22/2023 8:20 AM EDT Office Visit Family Medicine [address] [phone] Melissa Hand MD [address] [place] [address] [place] [address] 11/06/2023 11:15 AM EDT Office Visit Urology, [facility] 132 [facility] [place] [address] Zbigniew Holder MD 27 [facility] 270 [place] [address] 01/03/2024 1:00 PM EDT Office Visit Family Medicine [address] [phone] Mony Reid CRNP [address] [place] [address] [place] [address] 01/17/2024 10:00 AM EDT Office Visit Hepatology, [facility] 132 [facility] [place] [address] Jaclyn Jay MD [address] [place] [address] 01/24/2024 9:30 AM EDT Cardiac Studies Cardiology, [facility] 132 [facility] [address] [place] [facility] 132 [facility] [place] [address] 02/18/2024 2:45 PM EST Office Visit Hematology/Oncology [facility] 200 [facility] [place] [phone] Blayne Caruso MD 200 [facility] [place] [address] 09/09/2024 1:20 PM EDT Office Visit Dermatology [address] [place] [address] Gaby Pitt PA-C [address] [place] [address] [place] [address] Health Maintenance Due Date Last Done Comments Cologuard 1994 Sigmoidoscopy 1994 Hepatitis B (1 of 3 - Risk 3-dose series) 2009 Fecal Occult Blood Test 03/06/2020 03/06/2019, 03/09 COVID-19 Vaccine ( season) 2022 Mammogram 05/24/2023 05/24/2022, 05/09, 04/24/2021, Additional history exists Nephrology Referral 05/31/2023 05/31/2022 Diabetic Eye Exam 07/13/2023 07/12/2022, , 05/18/2022, Additional history exists Phosphate 11/21/2023 11/20/2022, 06/2022, 02/22/2022, Additional history exists HbA1c 12/15/2023 [...] Documents on File Type Date Recorded 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
--- OUTSIDE RECORDS SUMMARY | 2023-12-30 03:18 | External Medical Summary | Summary of Care ---
Author Name Unknown Organization [facility] Address [address] [facility] [address] Phone [phone] Care Team Providers Care Coding Specialist Name Role Phone Melissa Hand MD Primary Care Prov ider Encounter Details Date Type Department Care Team (Late st Contact Info) Description 09/30/2023 Telephone Urology, [facility] 132 [facility] [place] [address] Zbigniew Holder MD 27 [facility] [place] [address] [place] [address] Allergies Active Allergy Reactions Criticality Noted Date Comments Lisinopril Cough Low 04/25/2020 High potassium documented as of this encounter (statuses as of 10/01/2023) Medications Medication Sig Dispensed Refills Start Date [...] use of insulin ([facility]) Inject 0.75 mg under the skin once a week. 2 mL 11 05/15/2023 Active Aspirin Low Dose 81 MG Oral Tablet Delayed Release (aspirin enteric coated) TAKE ONE TABLET BY MOUTH EVERY DAY 90 Tablet 3 05/18/2023 Active Mirtazapine 15 MG Oral Tablet (Remeron)Indications :Recurrent major depressive disorder, in full remission ([facility]),Poor appetite TAKE ONE TABLET BY MOUTH AT BEDTIME 30 Tablet 5 05/22/2023 Active Sertraline HCl 100 MG Oral Tablet (Zoloft)Indications: Recurrent major depressive disorder, in full remission ([facility] [...] Use as directed.. 14 Tablet 09/30/2023 Active documented as of this encounter (statuses as of 10/01/2023) Active Problems Problem Noted Date Diagnosed Date [...] as of this encounter (statuses as of 10/01/2023) Resolved Problems Problem Noted Date Diagnosed Date [...] as of this encounter (statuses as of 10/01/2023) Immunizations Name Administration Dates Next Due Influenza, Whole Virus 01/16/2013,04/20/2011 Pneumococcal Conjugate Vacc, 13 Valent (Prevnar) 03/10/2019 Pneumococcal Conjugate Vacci ne, 20-valent ([id number]) 09/19/2021 Pneumococcal Polysaccharide PPV23 (Pneumovax) 09/08/2015 Season [...] Telephone Encounter - Abbey Cain LPN - 10/01/2023 8:22 AM EDT Patients son aware * Telephone Encounter - Zbigniew Holder MD - 09/30/2023 5:01 PM EDT Patient with positive urine culture, covered with Bactrim. Thx, HM documented in this encounter Plan of Treatment Upcoming Encounters Date Type Department Care Team (Late st Contact Info) Description 10/04/2023 9:45 AM EDT Imaging Radiology [address] [place] [address] 10/22/2023 8:20 AM EDT Office Visit Family [address] [phone] Melissa Hand MD [address] [place] [address] [place] [address] 11/06/2023 11:15 AM EDT Office Visit Urology, [facility] 132 [facility] [place] [address] Zbigniew Holder MD [address] [place] [address] [place] [address] 01/03/2024 1:00 PM EDT Office Visit [address] [phone] Mony Reid CRNP [address] [place] [address] [place] [address] 01/17/2024 10:00 AM EDT Office Visit Hepatology, [facility] 132 [facility] [place] [address] Jaclyn Jay MD [address] [place], [place] [address] [place] [address] 01/24/2024 9:30 AM EDT Cardiac Studies Cardiology, [facility] 132 [facility] [place] [address] [facility] 132 [place] [address] 02/18/2024 2:45 PM EST Office Visit Hematology/Oncology [facility] [place] [facility] [phone] Blayne Caruso MD 200 [place] [address] 09/09/2024 1:20 PM EDT Office Visit Dermatology [address] [place] [address] Gaby Pitt PA-C [address] [place] [address] [place] [address] Health Maintenance Due Date Last Done Comments [...] Documents on File Type Date Recorded Patient Data Center Operator Expl anation POLST 12/20/2022 2:13 PM POLST (Rosen ited DNR) Care Teams Coding Specialist Relationship Specialty Start Date End Date Melissa Hand MD [address] [place] [address] [place] [phone] PCP - General Family Medicine 03/11/19 documented as of this encounter
--- OUTSIDE RECORDS SUMMARY | 2023-12-30 03:18 | External Medical Summary | Summary of Care ---
Author Name Unknown Organization [facility] Address [address] [facility] [address] Phone [phone] Care Team Providers Care Creative Perfumer Name Role Phone Melissa Hand MD Primary Care Prov ider Reason for Visit * Reason Comments Outpatient Testing Encounter Details Date Type Department Care Team (Late st Contact Info) Description 10/22/2023 9:40 AM EDT Laboratory Laboratory [address] [place] [phone] [place] [address] Type 2 diabetes mellitus with stage 4 chronic kidney disease, with long-term current use of insulin ([facility]); 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 2 mL 5 05/10/2023 Active Additional Information Patient not taking.Reported on 10/22/2023 Trulicity 0.75 MG/0.5ML Subcutaneous Solution Pen-injector (Dulaglutide)Indicat ions:Type 2 diabetes mellitus with stage 4 chronic kidney disease, with long-term current use of insulin ([facility]) Inject 0.75 mg under the skin once a week. 2 mL 11 05/15/2023 Active Aspirin Low Dose 81 MG Oral Tablet Delayed Release (aspirin enteric coated) TAKE ONE TABLET BY MOUTH EVERY DAY 90 Tablet 3 05/18/2023 Active Mirtazapine 15 MG Oral Tablet (Remeron)Indications :Recurrent major depressive disorder, in full remission ([facility]),Poor appetite TAKE ONE TABLET BY MOUTH AT BEDTIME 30 Tablet 5 05/22/2023 Active Sertraline HCl 100 MG Oral Tablet (Zoloft)Indications: Recurrent major depressive disorder, in full remission ([facility]) Take 1.5 Tablets by [...] with long-term current use of insulin ([facility]) test blood sugar 3 [...] (Prevnar) 03/10/2019 Pneumococcal Conjugate Vacci ne, 20-valent ([id number]) 09/19/2021 Pneumococcal Polysaccharide PPV23 (Pneumovax) 09/08/2015 Season [...] AM EDT Office Visit Urology, [facility] 132 [facility] [place] [address] Zbigniew Holder MD 27 [place] [address] 01/03/2024 1:00 PM EDT Office Visit Family Medicine [facility] [place] [place] [phone] Mony Reid CRNP [address] [place] [address] [place] [address] 01/17/2024 10:00 AM EDT Office Visit Hepatology, [facility] 132 [facility] [place] [address] Jaclyn Jay MD [address] [place] [address] 01/24/2024 9:30 AM EDT Cardiac Studies Cardiology, [facility] 132 [facility] [place] [address] [place] 132 [facility] [place] [address] 02/18/2024 2:45 PM EST Office Visit Hematology/Oncology [facility] [address] [place] [phone] Blayne Caruso MD [address] [place] [address] 09/09/2024 1:20 PM EDT Office Visit Dermatology [address] [place] [address] Gaby Pitt PA-C [address] [place] [address] [place] [address] Pending Results Name Type Priority Associated Diagnoses [...] Documents on File Type Date Recorded Patient Family Support Specialist Expl anation POLST 12/20/2022 2:13 PM POLST (Rosen ited DNR) Care Teams Creative Perfumer Relationship Specialty Start Date End Date Melissa Hand MD [address] [place] [address] [place] [address] PCP - General Family Medicine 03/11/19 documented as of this encounter
--- OUTSIDE RECORDS SUMMARY | 2023-12-30 03:18 | External Medical Summary ---
Author Name Unknown Address Unknown Organization K01:[facility] - [address] [place] [address] Laboratory Report Ordering Provider Test Date Status CLINTON FRANKLIN 10/11/2023 09:53:31 Final Observation Date Value Abnormality Reference (Units) Status Bacteria identified in Specimen by Culture 10/11/2023 09:53:31 No significant growth Final Test: Culture, Urine, Quanti tative
Specimen Source: Urine, Clean Catch
Specimen Type: Urine
Specimen Date: 10/11/2023 0953
Result Date: 10/12/2023 1730
Result Status: Final result
Resulting Lab: [facility]
[address]
[place] [address]

CULTURE

No significant growth

null Performing Location [facility] [address] [facility] [address]
--- OUTSIDE RECORDS SUMMARY | 2023-12-30 03:19 | External Medical Summary | Summary of Care ---
Author Name Unknown Organization [facility] Address [address] [facility] [place] [address] Phone [phone] Care Team Providers Care Auto Mechanics Instructor Name Role Phone Melissa Hand MD Primary Care Prov ider Encounter Details Date Type Department Care Team (Late st Contact Info) Description 08/05/2023 9:30 AM EDT Home Visit Care Coordination and Integration [address] [facility] [place] [phone] Alivia Campbell [facility] [address] [place] [address] Allergies Active Allergy Reactions Criticality Noted Date Comments Lisinopril Cough Low 04/25/2020 High potassium documented as of this encounter (statuses as of 08/06/2023) Medications Medication Sig Dispensed Refills Start Date End Date Status Acetaminophen 325 MG Oral Tablet Take 2 Tablets by mouth every 4 hours as needed. 100 Tab 0 02/16/2019 Active nitroglycerin (NITROSTAT) 0.[address] 1 Tab under the tongue as needed for Pain, Chest. May repeat 3 times. If chest pain continues, call 911. 25 Tab 0 02/26/2019 Active Lancets MISC Test 3 times daily E11.9 100 Each 5 11/12/2019 Active OneTouch Delica Lancets 33G MISCIndications:DM (diabetes mellitus), type 2, uncontrolled, with renal complications Test 3 times daily. E11.9 100 Each 5 11/14/2019 Active Vitamin D3 25 MCG (1000 UT) Oral Tablet (Vitamin D3) Take 1 Tablet by mouth in the morning. 0 09/22/2020 Active Cranberry 50 MG Oral Tablet Chewable Once per daily 0 08/08/2022 Activ e Ketoconazole 2 % External [...] disease, with long-term current use of insulin ([facility]) Inject 0.75 mg under the skin once [...] Recurrent major depressive disorder, in full remission ([facility]) Take 1.5 Tablets by mouth at bedtime. 135 Tablet 1 06/22/2023 Active ALPRAZolam 0.25 MG Oral Tablet (Xanax)Indications:I rritability Take 1 Tablet by mouth daily as needed for Anxiety or Agitation. 4 Tablet 0 06/22/2023 Active Isosorbide Dinitrate 10 MG Oral [...] disease, with long-term current use of insulin ([facility]) test blood sugar 3 times daily dx e11.22 300 Strip 1 07/31/2023 Active Cefdinir 300 MG Oral Capsule (Omnicef)Indications :Acute cystitis with hematuria Take 1 Capsule by mouth in the morning. 7 Capsule 0 08/05/2023 Active documented as of this encounter (statuses as of 08/06/2023) Active Problems Problem Noted Date Diagnosed Date Pancytopenia 06/22/2023 Other cirrhosis of liver 06/22/2023 [...] as of this encounter (statuses as of 08/06/2023) Resolved Problems Problem Noted Date Diagnosed Date [...] as of this encounter (statuses as of 08/06/2023) Immunizations Name Administration Dates Next Due Influenza, Whole Virus 01/16/2013,04/20/2011 Pneumococcal Conjugate Vacc, 13 Valent (Prevnar) 03/10/2019 Pneumococcal Conjugate Vacci ne, 20-valent ([id number]) 09/19/2021 Pneumococcal Polysaccharide PPV23 (Pneumovax) 09/08/2015 Season [...] money to get more. Never true 08/05/2023 Sex and Gender Information Value Date Recorded Sex Assigned at Female 12/29/2020 4:04 PM EDT Gender Identity Female 12/29/2020 4:04 PM EDT Sexual Orientation Straight 12/29/2020 4: 04 PM EDT Job Start Date Occupation Industry Not on file Not on file Not on file documented as of this encounter Last Filed Vital Signs Vital Sign Reading Time Taken Comments Blood Pressure 112/52 08/05/2023 10:30 AM EDT Pulse 74 08/05/2023 10:30 AM EDT Temperature 36.7 C (98.1 F) 08/05/2023 10:30 AM E DT Respiratory Rate 20 08/05/2023 10:30 AM EDT Oxygen Saturation 97% 08/05/2023 10:30 AM EDT Inhaled Oxygen Concentration - - Weight - - Height - - Body Mass Index - - documented in this encounter Progress Notes * Isabelle Dorado LPN - 08/06/2023 9:35 AM EDT Pt's son Yousuf is aware, he will call for an appt if she doesn't improve from here. * Melissa Hand MD - 08/06/2023 9:10 AM EDT She has e coli infection in the bladder, which is sensitive to both antibiotics (cipro and cefdinir). Either antibiotic should work. I would recommend cefdinir due to her age/ renal function but either is fine. * Isabelle Dorado LPN - 08/06/2023 9:00 AM EDT I called pt's son- he states she's had the cough for a while, and he's been managing that at home, he does not feel she needs another appt at this time. Pt's son states his main concern is which abx she should be taking. Dr. Holder prescribed cipro andDr. Tovar prescribed omnicef. * Melissa Hand MD - 08/05/2023 3:22 PM EDT Please review RENE notes Can a nurse please call the family (Yousuf) to see if he thinks she just needs to be seen? It soundsto me that she needs a clinic appointment (acute, within 1-2 days). * Alivia Campbell, Community Health Internet Specialist - 08/05/2023 1:17 PM EDT Telemedicine visit: No Community Health Internet Specialist (RENE) documentation: CHW home visit for med review and safety assessment following DC from [facility] rehab. Per son - last month, patient lost balance and fell into table, resulting in head injury. Presented to [facility]. Head laceration stapled in ED, patient admitted to [facility]. Patient then transferred to [facility] to beunder the care of neurosurgery due to concern for cerebral edema. Son reports thoracentesis at [facility] - states provider elected this over diuresis d/t decreased kidney function. From there, patient admitted to [facility] for rehab. Son asking if records received from [facility] and [facility]. Son reports patient has experienced a change in condition since the fall. She is max assist for transfers, only to able take to a few steps. Patient was previously ambulating short distances in the home with her walker. Son reports patient developed UTI sx last week. Urine sample taken to [facility]. As per urology, patient had Bactrim refill on hand at home. Son called in for a new bottle to keep on hand, and pharmacy told him provider canceled the order. Rx on bottle reads 4 refills left. Son asking for order to be refilled. Feels it is effective. Breathing labored at times, moist sounding cough. Patient reports occasionly productive - it feels like someone is choking me. Son increased torsemide - d/t cough. No edema, no weight gain. Patient reports SOB when laying flat. Has hospital bed - son elevates head of bed. Has CPAP, but patient doesnt like to wear it. Will take it off. Son reports observing periods of apnea while patient is asleep. Patient reports occasional dizziness/lightheaded upon standing. Son encourages her to change positions slowly, sit at edge of bed before standing. Son agreeable to video visit or in person visit, if provider feels patient needs to be evaluated. Blood sugars running mid 200s - son thinks d/t infection. This AM bsg 194, which is lower than it has been. Patient reports feeling fatigued. Wants to go back to sleep. Reports feeling constipated. Son is giving Metamucil. Son reports she has at least a small BM daily, occasionally incontinent. Son reports it is difficult to obtain weight at times d/t poor balance. Son assists in weighing. Reports [facility] gave them a weight on DC of 114#, then was 126# at home the next day. Unsure of accuracy. Hospital bed and wheelchair ordered upon DC from rehab. Using bed for positioning. Med review: Needs refill of ketoconozle shampoo (using 2-3x/week), not using cream Tessalon pearls on med list but not taking Trulicity 0.75mg and 1.5mg on med list - pharmacy is filling the order for 0.75mg, so that's what son is giving. Xanax on med list, but son not giving. He is concerned about it making her even more sleeping. Cautioned this can lead to falls/balance issues as well. Alivia Campbell, Community Health Worker documented in this encounter Plan of Treatment Upcoming Encounters Date Type Department Care Team (Late st Contact Info) Description 08/16/2023 1:15 PM EDT Office Visit Hematology/Oncology [facility] [address] [facility] [facility] [address] [place] [phone] Blayne Caruso MD [address] [place] [address] 08/28/2023 1:20 PM EDT Office Visit Dermatology [address] [place] [address] Gaby Pitt PA-C [address] [place] [address] [place] [address] 10/04/2023 9:45 AM EDT Imaging Radiology [address] [place] [address] 10/22/2023 8:20 AM EDT Office Visit Family Medicine [address] [place] [phone] Melissa Hand MD [address] [place] [address] [place] [address] 11/06/2023 11:15 AM EDT Office Visit Urology, [facility] [address] [place] [address] Zbigniew Holder MD [address] [place] [address] [place] [address] 01/17/2024 10:00 AM EDT Office Visit Hepatology, [facility] 132 [facility] [place] [address] Jaclyn Jay MD [address] [place] [phone] 01/24/2024 9:30 AM EDT Cardiac Studies Cardiology, [facility] 132 [place] [address] [place], [facility] 132 [place] [address] Health Maintenance Due Date Last Done Comments Cologuard 1994 Sigmoidoscopy 1994 Hepatitis B (1 of 3 - Risk 3-dose series) 2009 Fecal Occult Blood Test 03/06/2020 03/06/2019, 03/09 COVID-19 Vaccine ( season) 2022 Mammogram 05/24/2023 05/24/2022, 04/08, 01/21/2020, Additional history exists Nephrology Referral 05/31/2023 05/31/2022 Diabetic Eye Exam 07/13/2023 07/12/2022, , 12/26/2020, Additional history exists Diabetic Foot Exam 08/09/2023 08/08/2022, 0 09/19/2021, 04/25/2020, Additional history exists Phosphate 11/21/2023 11/20/2022, 08/0 06/2022, 02/22/2022, Additional history exists HbA1c 12/15/2023 06/14/2023, 08/0 06/2022, 05/18/2022, Additional history exists Albumin/Creatinine Ratio 01/01/2024 023, 11/08/2022, 08/10/2022, Additional history exists GFR 01/23/2024 07/24/2023, 04/1 , 06/14/2023, Additional history exists PTH 06/21/2024 06/22/2023, 03/0 05/2022, 02/22/2022, Additional history exists Hgb 07/23/2024 07/24/2023, 04/1 , 06/22/2023, Additional history exists Colonoscopy 09/13/2029 09/14/2019 Colorectal Cancer Screening 09/13/2029 DTaP,Tdap,and Td Vaccines (2 - Td or Tdap) 01/17/2030 01/18/2020 (Declined) Zoster Vaccines Completed 12/16/2019, 09/26/2019 Pneumococcal Vaccine: 65+ Years Completed 09/19/2021, 03/10/2019, 02/10/2019, Additional history exists Influenza Vaccine (FLU shot) [...] Documents on File Type Date Recorded Patient Croze Machine Operator Expl anation POLST 12/20/2022 2:13 PM POLST (Judy meyers DNR) Care Teams Auto Mechanics Instructor Relationship Specialty Start Date End Date Melissa Hand MD [address] [place] [address] [place] [id number] PCP - General Family Medicine 03/11/19 documented as of this encounter
--- OUTSIDE RECORDS SUMMARY | 2023-12-30 03:19 | External Medical Summary | Summary of Care ---
Author Name Unknown Organization [facility] Address [address] [facility] [place] [address] Phone [phone] Care Team Providers Care Ship Wirer Name Role Phone Melissa Hand MD Primary Care Prov ider Encounter Details Date Type Department Care Team (Late st Contact Info) Description 08/05/2023 9:30 AM EDT Home Visit Care Coordination and Integration [address] [facility] [place] [phone] Alivia Campbell [facility] [address] [place] [address] Allergies Active Allergy [...] disease, with long-term current use of insulin ([facility]) Inject 0.75 mg under the skin once [...] Recurrent major depressive disorder, in full remission ([facility]) Take 1.5 Tablets by mouth at bedtime. [...] disease, with long-term current use of insulin ([facility]) test blood sugar 3 times daily dx [...] (Prevnar) 03/10/2019 Pneumococcal Conjugate Vacci ne, 20-valent ([id number]) 09/19/2021 Pneumococcal Polysaccharide PPV23 (Pneumovax) 09/08/2015 Season [...] documented in this encounter Progress Notes * Melissa Hand MD - 08/06/2023 9:10 [...] 1-2 days). * Alivia Campbell, Community Health Raimann Machine Operator - 08/05/2023 1:17 PM EDT Telemedicine visit: No Community Health Raimann Machine Operator (RENE) documentation: CHW home visit for med review and safety assessment following DC from [facility] rehab. Per son - last month, patient lost balance and fell into table, resulting in head injury. Presented to [facility]. Head laceration stapled in ED, patient admitted to [facility]. Patient then transferred to [facility] to beunder the care of neurosurgery due to concern for cerebral edema. Son reports thoracentesis at [facility] - states provider elected this over diuresis d/t decreased kidney function. From there, patient admitted to [facility] for rehab. Son asking if records received from [facility] and [facility]. Son reports patient has experienced a change in condition since the fall. She is max assist for transfers, only to able take to a few steps. Patient was previously ambulating short distances in the home with her walker. Son reports patient developed UTI sx last week. Urine sample taken to clinic. As per urology, patient had Bactrim [...] poor balance. Son assists in weighing. [facility] DC [facility] [...] lead to falls/balance issues as well. Alivia Campbell Community Health Worker documented in this encounter Plan of Treatment Upcoming Encounters Date Type Department Care Team (Late st Contact Info) Description 08/16/2023 1:15 PM EDT Office Visit Hematology/Oncology [facility] [address] [facility] [place] [phone] Blayne Caruso MD [address] [facility] [place] [address] 08/28/2023 1:20 PM EDT Office Visit Dermatology [address] [place] [address] Gaby Pitt PA-C [address] [place] [address] [place] [address] 10/04/2023 9:45 AM EDT Imaging Radiology [address] [place] [address] 10/22/2023 8:20 AM EDT Office Visit Family Medicine [address] [place] [phone] Melissa Hand MD [address] [place] [address] [place] [address] 11/06/2023 11:15 AM EDT Office Visit Urology, [facility] 132 [facility] [place] [address] Zbigniew Holder MD [address] [place] [address] [place] [address] 01/17/2024 10:00 AM EDT Office Visit Hepatology, [facility] [address] [facility] [place] [address] Jaclyn Jay MD [address] [place] [address] 01/24/2024 9:30 AM EDT Cardiac Studies Cardiology, 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
--- OUTSIDE RECORDS SUMMARY | 2023-12-30 03:19 | External Medical Summary ---
Author Name Unknown Address Unknown Organization K01:[facility] [address] [facility] [address] [facility] [address] Laboratory Report Ordering Provider Test Date Status CLINTON FRANKLIN 09/26/2023 09:09:58 Final <10,000 colonies/ml mixed no rmal aneudy Observation Date Value Abnormality Reference (Units ) Status Bacteria identified in Specimen by Culture 09/26/2023 09:09:58 [id number]^ESCHE RICHIA COLI Abnormal Final >100,000 colonies/mL Escheri kate coli Performing Location [facility] [place] [facility] [address] [facility] [address] Ordering Provider Test Date Status CLINTON FRANKLIN 09/26/2023 09:09:58 Final Observation Date Value Abnormality Reference (Units ) Status Ampicillin 09/26/2023 09:09:58 >=32 Resistant Final Ampicillin + Sulbactam 09/26/2023 09:09:58 16 Intermediate Final Cefazolin 09/26/2023 09:09:58 <=4 Susceptible Final Cefepime susceptibility 09/26/2023 09:09:58 <=1 Susceptible Final Ceftriaxone suceptibility 09/26/2023 09:09:58 <=1 Susceptible Final Ciprofloxacin 09/26/2023 09:09:58 <=0.25 Susceptible Final Due to serious side effects, the FDA has advised against using Ciprofloxacin to treat uncomplicated UTIs and respiratory tract infections unless there are no alternative treatment options. Gentamicin susceptibility 09/26/2023 09:09:58 <=1 Susc eptible Final Nitrofurantoin susceptibility 09/26/2023 09:09:58 <=16 Susceptible Final Piperacillin + Tazobactamsusceptibility 09/26/2023 09:09:58 <=4 Susceptible Final TMP-SMZ susceptibility 09/26/2023 09:09:58 <=20 Suscept ible Final Test: Culture, Urine, Quanti tative
Specimen Source: Urine, Clean Catch
Specimen Type: Urine
Specimen Date: 09/26/2023 [id number]
Result Date: 09/30/2023 115
Result Status: Final result
Abnormal: Yes
Resulting Lab: [facility]
[address]
[place] [address]

CULTURE

>100,000 colonies/mL Escherichia coli (Abnormal)

<10,000 colonies/ml mixed normal aneudy

SUSCEPTIBILITY

Escherichia coli
METHOD MICROBROTH DILUTIONS

AMPICILLIN >=32 Resistant
AMPICILLIN/SULBACTAM 16 Intermediate
CEFAZOLIN <=4 Susceptible
CEFEPIME <=1 Susceptible
CEFTRIAXONE <=1 Susceptible
CIPROFLOXACIN <=0.25 Susceptible
[1]
GENTAMICIN <=1 Susceptible
NITROFURANTOIN <=16 Susceptible
PIPERACILLIN TAZOBACTAM <=4 Susceptible
TRIMETH/SULFAMETHOXAZOLE <=20 Susceptible

[1] Due to serious side effects, the FDA has advised against using
Ciprofloxacin to treat uncomplicated UTIs and respiratory tract infections
unless there are no alternative treatment options.

null Performing Location [facility] [place] [address] [facility] [address]
--- OUTSIDE RECORDS SUMMARY | 2023-12-30 03:19 | External Medical Summary | Summary of Care ---
Author Name Unknown Organization [facility] Address [address] [facility] [place] [address] Phone [phone] Care Team Providers Care Stoker Mechanic Name Role Phone Melissa Hand MD Primary Care Prov ider Encounter Details Date Type Department Care Team (Late st Contact Info) Description 08/05/2023 Telephone Urology Julia Baird [address] [place] [address] [place] [phone] Zbigniew Holder MD [address] [place] [address] [place] [address] Allergies Active Allergy Reactions Criticality Noted Date [...] disease, with long-term current use of insulin ([facility]) Inject 0.75 mg under the [...] Recurrent major depressive disorder, in full remission ([facility]) Take 1.5 Tablets by mouth [...] disease, with long-term current use of insulin ([facility]) test blood sugar 3 times daily dx e11.22 300 Strip 1 07/31/2023 Active Cefdinir 300 MG Oral Capsule (Omnicef)Indications :Acute cystitis with hematuria Take 1 Capsule by mouth in the morning. 7 Capsule 0 08/05/2023 Active Ciprofloxacin HCl 250 MG Oral Tablet (Cipro) Take 1 Tablet by mouth in the morning and 1 Tablet before bedtime. 14 Tablet 0 08/05/2023 Active documented as of this [...] (Prevnar) 03/10/2019 Pneumococcal Conjugate Vacci ne, 20-valent ([id number]) 09/19/2021 Pneumococcal Polysaccharide PPV23 (Pneumovax) 09/08/2015 Season [...] Telephone Encounter - Abbey Cain LPN - 08/06/2023 9:54 AM EDT Son aware * Telephone Encounter - Zbigniew Holder MD - 08/06/2023 9:16 AM EDT Either prescription should suffice. ULISES Zaman * Telephone Encounter - Abbey Cain LPN - 08/06/2023 8:45 AM EDT Patient's son on HIPAA aware, states he picked up 2 separate antibiotics yesterday and wants to confirm he is to take both. I advised Dr Holder prescribed Cipro, and per separate encounter PCP prescribed Cefdinir for cystitis. Patient is to d/c Bactrim and per Dr Holder patient can take either Cipro or the Cefdinir for the infection but not both. Sending for FYI/cosign. - Abbey Zaman LPN * Telephone Encounter - Zbigniew Holder MD - 08/05/2023 4:50 PM EDT Patient's culture is resistant to self start Bactrim. Prescription for ciprofloxacin sent to pharmacy. ULISES Zaman documented in this encounter Plan of Treatment Upcoming Encounters Date Type Department Care Team (Late st Contact Info) Description 08/16/2023 1:15 PM EDT Office Visit Hematology/[place] [address] [place] [address] [phone] Blayne Caruso MD [address] [place] [address] 08/28/2023 1:20 PM EDT Office Visit Dermatology [address] [place] [address] Gaby Pitt PA-C [address] [place] [address] [place] [address] 10/04/2023 9:45 AM EDT Imaging Radiology [address] [place] [address] 10/22/2023 8:20 AM EDT Office Visit Family Medicine [address] [place] [phone] Melissa Hand MD [address] [place] [address] [place] [address] 11/06/2023 11:15 AM EDT Office Visit Urology, [facility] 132 [facility] [place] [address] Zbigniew Holder MD [address] [facility] [address] [place] [address] 01/17/2024 10:00 AM EDT Office Visit Hepatology, [facility] 132 [facility] [place] [address] Jaclyn Jay MD [address] [facility] [place] [address] 01/24/2024 9:30 AM EDT Cardiac Studies Cardiology, [facility] 132 [facility] [place] [address] [facility] 132 [facility] [place] [address] Health Maintenance Due Date Last Done Comments [...] Documents on File Type Date Recorded Patient Marketing Budget Analyst Expl anation POLST 12/20/2022 2:13 PM POL (Rosen ited DNR) Care Teams Stoker Mechanic Relationship Specialty Start Date End Date Melissa Hand MD [address] [place] [address] [place] [phone] PCP - General Family Medicine 03/11/19 documented as of this encounter
--- OUTSIDE RECORDS SUMMARY | 2023-12-30 03:19 | External Medical Summary | Summary of Care ---
Author Name Unknown Organization [facility] Address [address] [facility] [facility] [address] Phone [phone] Care Team Providers Care Manager Of Training Name Role Phone Melissa Hand MD Primary Care Prov ider Reason for Visit * Reason Comments Follow Up Encounter Details Date Type Department Care Team (Late st Contact Info) Description 08/16/2023 1:15 PM EDT Office Visit Hematology/Oncology [facility] [place] [address] [facility] [place] [phone] Blayne Caruso [facility] [address] Pancytopenia (HCC)*; Nutritional anemia Allergies Active Allergy Reactions Criticality Noted Date Comments Lisinopril Cough Low 04/25/2020 High potassium documented as of this encounter (statuses as of 08/16/2023) Medications Medication Sig Dispensed Refills Start Date [...] with long-term current use of insulin ([facility]) Inject 1.5 mg under the skin once a week. 2 mL 5 05/10/2023 Active Trulicity 0.75 MG/0.5ML Subcutaneous Solution Pen-injector (Dulaglutide)Indicat ions:Type 2 diabetes mellitus with stage 4 chronic kidney disease, with long-term current use of insulin ([facility]) Inject 0.75 mg under the skin [...] with long-term current use of insulin ([facility]) test blood sugar 3 times daily [...] as of this encounter (statuses as of 08/16/2023) Active Problems Problem Noted Date Diagnosed Date [...] as of this encounter (statuses as of 08/16/2023) Resolved Problems Problem Noted Date Diagnosed Date [...] as of this encounter (statuses as of 08/16/2023) Immunizations Name Administration Dates Next Due Influenza, Whole Virus 01/16/2013,04/20/2011 Pneumococcal Conjugate Vacc, 13 Valent (Prevnar) 03/10/2019 Pneumococcal Conjugate Vacci ne, 20-valent ([id number]) 09/19/2021 Pneumococcal Polysaccharide PPV23 (Pneumovax) 09/08/2015 Season [...] Sign Reading Time Taken Comments Blood Pressure 137/84 08/16/2023 1:06 PM EDT Pulse 78 08/16/2023 1:06 PM EDT Temperature 36.3 C (97.4 F) 08/16/2023 1:06 PM ED T Respiratory Rate 17 08/16/2023 1:06 PM EDT Oxygen Saturation 96% 08/16/2023 1:06 PM EDT Inhaled Oxygen Concentration - - Weight 53.9 kg (118 lb 14.4 oz) 08/16/2023 1:06 PM EDT Height - - Body Mass Index 19.79 12/31/2022 1:02 PM EDT documented in this encounter Progress Notes * Blayne Caruso MD - 08/16/2023 1:15 PM EDT RADHA FREY MR # [id number] :1950 73 years old female, Date of consultation:03/15/2022 DIAGNOSIS: - progressive pancytopenia -no splenomegaly on the imaging studies -chronic renal insufficiency contributing to the anemia -myelodysplastic syndrome would be possible ,we have not on bone marrow because of her comorbid conditions. Recent drop in the hemoglobin level could be also because of repeated infections ( UTI, parainfluenza virus infection) CURRENT TREATMENT: - Observation. Looking at comorbid conditions, she is not a candidate for aggressive kind of treatment if she has evidence of myelodysplastic syndrome, so no bone marrow is done. If her hemoglobin level dropped from less than 10, we could consider for Procrit for the diagnosis of anemia related to abnormal kidney function test. DIAGNOSTIC WORKUP: She has progressive pancytopenia since 2019, -Platelet count was around 100,000, now It is around 50,000 range as of recent hospitalization at [facility] in early March 2020. -hemoglobin level was around 10, dropped down to around 8 - 8.5 range for the last 3 years. -WBC count was around 4000 range, now It is around 3500 range. When she had UTI, It has dropped down to around 1.7. Peripheral smear reviewed by pathologist at [facility] --> unremarkable. -she has chronic renal insufficiency. -Vitamin B12 level was 726 (03/05/2019 at [facility]). -Ferritin level was around 1027 in 02/2019 No history of blood transfusion the past. CT scan of the abdomen and pelvis without intravenous contrast (December 2021 at [facility]: -no hepatomegaly, no splenomegaly, no lymphadenopathy. -thickening of the bladder wall noted. -no lytic or blastic bone lesions noted. Compression deformity of T12 noted CT chest (01/19/2022 at [facility]: - 1. A few small scattered patchy groundglass densities within the lower lobes. This could represent a low-grade pneumonitis or dependent change. 2. Mild bronchial wall thickening with a few partially opacified right upper and right lower lobe bronchi. OTHER IMPORTANT HISTORY: She has several comorbid conditions: -Coronary artery disease, cardiomyopathy, ejection fraction was around 20% in 2019. -UTI x2 recently. She was admitted at [facility]. -chronic renal insufficiency. -hyperlipidemia -she has permanent pacemaker. -she ambulates with the help of the walker. -weight loss noted. INTERVAL HISTORY: She has come the clinic for the f/up, accompanied by her 2 daughters in the office. Ambulating withthe help of the walker. Recently she had some increasing coughing, respiratory pathogen PCR showed parainfluenza virus, nowdoes symptoms have improved. Did not require any hospitalization. ( 01/2023). She had a E coli ( Proteus mirabilis in March of 2023, had another UTI in July of 2023 ( E coli). Recently few days before she completed antibiotic courses. She says about 2 months back she had an accidental fall with some injury to the back, she has some lower back pain. No radicular pain lower extremities. No smoking, no ETOH abuse, coughing present, no increasing abdominal pain or distention, no leg edema. Current weight is around 118 lb. No bleeding from any sites. Past Medical History: Diagnosis Date AICD (automatic [...] Pneumonia involving right lung Sleep apnea, obstructive Past Surgical History: Procedure Laterality Date ADULT ECHOCARDIOGRAM 02/04/2019 mildly dilated LA and LV. severe global dyskineis of LV, LV systolic function severely reduced. LVEF 20 to 25%. mild , moderate MR. [facility] COLONOSCOPY, DIAGNOSTIC (RECTUM) N/A 09/14/2019 biopsies show adenomatous polyps/recall 5 years/Colonoscopy/[facility] EGD, FLEXIBLE, DIAGNOSTIC N/A 09/14/2019 tu holder grade III erosive esophagitis/non-bleeding gastric ulcers/biopsies show mild irritation of stomach/repeat 8 wks/EGD/[facility] LIGATE/CUT OVIDUCT(S) 1985 SINGLE-LEAD DEFIBRILLATOR + REPROGRAM 2016 Current Outpatient Medications Medication Sig Dispense Refill [...] for swelling, fluid retention 90 Tablet 3 Benzonatate 100 MG Oral Capsule Take 1 Capsule by mouth 3 times a day as needed for Cough. 50 Capsule 1 Gabapentin 100 MG Oral Capsule (Neurontin) TAKE ONE CAPSULE BY MOUTH EVERY DAY 90 Capsule 1 Basaglar KwikPen 100 UNIT/ML Subcutaneous Solution Pen-injector (Insulin Glargine Solostar) inject 15 units under the skin at bedtime 15 mL 1 Trulicity 1.5 MG/0.5ML Subcutaneous Solution Pen-injector (Dulaglutide) Inject 1.5 mg under the skin once a week. 2 mL 5 Trulicity 0.75 MG/0.5ML Subcutaneous [...] times daily dx e11.22 300 Strip 1 Cefdinir 300 MG Oral Capsule (Omnicef) Take 1 Capsule by mouth in the morning. 7 Capsule 0 Ciprofloxacin HCl 250 MG Oral Tablet (Cipro) Take 1 Tablet by mouth in the morning and 1 Tablet before bedtime. 14 Tablet 0 No current facility-administered medications for this visit. Family History Problem Relation Age of Onset Breast Cancer Aunt (Maternal) Renal Hx Mother ESRD, in her late 70s Diabetes Mother Other (Unknown) Father Heart attack Sister in her 50s Diabetes Brother Other (HIV) Brother Social History Socioeconomic History Marital status: Spouse name: Not on file Number of children: Not on file Years of education: Not on file Highest education level: Not on file Occupational History Not on file Tobacco Use Smoking status: Never Smokeless tobacco: Never Vaping Use Vaping Use: Never used Substance and Sexual Activity Alcohol use: Never Drug use: Never Sexual activity: Not Currently Other Topics Concern Not on file Social History Narrative 2014 Social Determinants of Health Financial Resource Strain: Not on file Food Insecurity: No Food Insecurity (08/05/2023) Hunger Vital Sign Worried About Running Out of Food in the Last Year: Never true Ran Out of Food in the Last Year: Never true Transportation Needs: Not on file Physical Activity: Not on file Stress: Not on file Social Connections: Not on file Intimate Partner Violence: Not on file Housing Stability: Not on file On Exam: BP 137/84 (BP Site: Left Arm, BP Position: Sitting, BP Cuff Size: Regular) | Pulse 78 | Temp 36.3 C (97.4 F) (Tympanic) | Resp 17 | Wt 53.9 kg (118 lb 14.4 oz) | SpO2 96% | BMI 19.79 kg/m | BSA1.57 m Constitutional: Patient is alert, cooperative and oriented x 3. Thin built woman, Patient is in no acute distress. HEENT: No icterus, pallor +, Throat and pharynx normal. Sinuses are non-tender. Neck: Supple and without lymphadenopathy or masses. No JVD. No Palpable supraclavicular lymph nodes. Lungs: Clear to auscultation. Bilateral symmetric air entry. No wheezing or rhonchi. Cardiovascular: Normal heart sounds, no murmurs.Regular rate and rhythm. Abdomen: soft, nontender, no hepatomegaly, no splenomegaly. Bowel sounds are normal. Neurological: No gross focal neurological deficit; walks with the help of the walker Extremities: No finger clubbing, No cyanosis. No leg edema. Skin:: No skin rash. SPINE: No spinal or paraspinal tenderness. LABS: Recent blood workup before hospitalization on 02/22/2022: -WBC 6000, H&H of 10.8/34.3, MCV 101, Platelet 82,000, MPV 11.5 -BUN/Creat: 68/1.7, Calcium 9.2 Blood workup done on 06/29/2022: - WBC 3900, H&H of 11.6/38.6, MCV 107 platelet count 57,000 - BUN/Creat: 64/1.7, calcium 9.4 - ANC --> 2500, ANC 1000 Blood workup done on 01/29/2023: - WBC 3000, H&H of 12/39, MCV 108, platelet count of 64,000 - BUN/Creat: 89/1.9, calcium 9.0 - AST 42, ALT 38, alkaline phosphatase 230, bilirubin level of 1.0. - SPEP --> Negative for monoclonal protein. Blood workup done on 07/24/2023: -WBC 2000, H&H of 10.6/33.6, Platelet count [id number]. -no differential count done. -BUN/Creat: 84/1.8, Calcium 9.2. IMAGING: Ultrasound of the liver done on 09/26/2022: -morphology of the liver has raised possibility of underlying fibrosis, small ascites noted. Diffuse thickening of the gallbladder wall noted. Right pleural effusion noted. Sonogram of the abdomen done on 03/25/2023 showed small liver liver is smooth encounter, homogeneous in echotexture, no liver lesion, slightly enlarged spleen measuring 13.6 cm. ASSESSMENT AND PLAN: 73-year-old female, who has progressive pancytopenia since 2019, no splenomegaly, no palpable lymphadenopathy, no ETOH abuse, no underlying liver disease was noted in the previous evaluation but recent sonogram of the liver shows possible fibrosis may have raised the possibility of cirrhosis of liver. She has several comorbid conditions including LV ejection fraction about 20%, renal insufficiency also contributing to anemia in her case. Because of the comorbid cancer, we decided not to proceed with bone marrow evaluation I reviewed her recent blood workup, now hemoglobin is around 10.6 , Platelet count around 110,000, no new bleeding complications. Will continue to observe. I am planning to see her back in about 6 months and will repeat blood workup If her hemoglobin level dropped from less than 10, we can consider Procrit treatment for the diagnosis of anemia related to the kidney failure. Dr. Blayne Caruso Hem/Onc (This note was completed using the dictation program Fluency Direct. As such, there may be misspellings word substitutions, or other variations that should not change the essence of the clinical content of this encounter note. If there is need for further clarification, please direct questions to the provider listed above.) documented in this encounter Nursing Notes * Shaila Jacome, MED ASSIST - 08/16/2023 1:14 PM EDT Patient identifed by name and birthdate Do you have any concerns about pain management for today's visit? Yes. Patient instructed to discuss pain concerns with provider during the visit today Living Will or Advance Directive for Health Care as noted on the problem list. [facility] is a way you can talk to your provider on line through e-mail. Would you like to sign up? I can activate it for you? ALREADY ACTIVE Filed Vitals: 08/16/23 1306 BP: 137/84 Pulse: 78 Resp: 17 Temp: 36.3 C (97.4 F) TempSrc: Tympanic SpO2: 96% Weight: 53.9 kg (118 lb 14.4 oz) Patient was instructed to not get up on the exam table/exam chair until directed and assisted by their provider; patient is to remain seated in the chair/ wheelchair/ exam table/ exam chair for fall prevention and safety reasons. Patient is aware to have assistance to step down off exam table/exam chair with personnel. Patient voiced full comprehension of instructions. documented in this encounter Plan of Treatment Upcoming Encounters Date Type Department Care Team (Late st Contact Info) Description 08/28/2023 1:20 PM EDT Office Visit Dermatology [address] [place] [address] Gaby Pitt PA-C [address] [place] [address] [place] [address] 10/04/2023 9:45 AM EDT Imaging Radiology [address] [place] [address] 10/22/2023 8:20 AM EDT Office Visit Family Medicine [address] [place] [phone] Melissa Hand MD [address] [place] [address] [place] [address] 11/06/2023 11:15 AM EDT Office Visit Urology, [address] [place] [address] Zbigniew Holder MD [address] [place] [address] [place] [address] 01/17/2024 10:00 AM EDT Office Visit Hepatology, [facility] 132 [place] [address] Jaclyn Jay MD [address] [place] [address] 01/24/2024 9:30 AM EDT Cardiac Studies Cardiology, [facility] 132 [place] [address] [place] 132 [place] [address] 02/18/2024 2:45 PM EST Office Visit Hematology/Oncology [facility] 200 [place] [phone] Blayne Caruso MD 200 [place] [address] Health Maintenance Due Date Last Done Comments [...] 07/24/2023, 1 , 06/22/2023, Additional history exists Colonoscopy 09/13/2029 [...] as of this encounter Visit Diagnoses Diagnosis Pancytopenia (HCC)- Primary Other pancytopenia Nutritional anemia Unspecified deficiency anemia documented in this encounter Advance Directives Documents on File Type Date Recorded Patient Nozzle And Sleeve Worker Expl anation POLST 12/20/2022 2:13 PM POLST (Rosen ited DNR) Care Teams Manager Of Training Relationship Specialty Start Date End Date Melissa Hand MD [address] [place] [address] [place] [address] PCP - General Family Medicine 03/11/19 documented as of this encounter"
--- OUTSIDE RECORDS SUMMARY | 2023-12-30 03:19 | External Medical Summary | Summary of Care ---
Author Name Unknown Organization [facility] Address [address] [facility] [place] [address] Phone [phone] Care Team Providers Care Litigation Examiner Name Role Phone Melissa Hand MD Primary Care Prov ider Reason for Visit * Reason Onset Date Comments Appointment 09/20/2023 Encounter Details Date Type Department Care Team (Late st Contact Info) Description 09/20/2023 Telephone Family Medicine [address] [phone] Melissa Hand MD [address] [place] [address] [place] [address] Appointment Allergies Active Allergy Reactions Criticality Noted Date Comments Lisinopril Cough Low 04/25/2020 High potassium documented as of this encounter (statuses as of 09/20/2023) Medications Medication Sig Dispensed Refills Start Date [...] disease, with long-term current use of insulin ([facility]) Inject 0.75 mg under the [...] Recurrent major depressive disorder, in full remission ([facility]) Take 1.5 Tablets by mouth [...] disease, with long-term current use of insulin ([facility]) test blood sugar 3 times [...] as of this encounter (statuses as of 09/20/2023) Active Problems Problem Noted Date Diagnosed Date [...] as of this encounter (statuses as of 09/20/2023) Resolved Problems Problem Noted Date Diagnosed Date [...] as of this encounter (statuses as of 09/20/2023) Immunizations Name Administration Dates Next Due Influenza, Whole Virus 01/16/2013,04/20/2011 Pneumococcal Conjugate Vacc, 13 Valent (Prevnar) 03/10/2019 Pneumococcal Conjugate Vacci ne, 20-valent ([id number]) 09/19/2021 Pneumococcal Polysaccharide PPV23 (Pneumovax) 09/08/2015 Season [...] encounter Miscellaneous Notes * Telephone Encounter - Marie Dorado OSA - 09/20/2023 12:43 PM EDT Pt is to f/u with Dr Michael Martinez but there is no openings, please call pt to schedule documented in this encounter Plan of Treatment Upcoming Encounters Date Type Department Care Team (Late st Contact Info) Description 10/04/2023 9:45 AM EDT Imaging Radiology [address] [place] [address] 10/22/2023 8:20 AM EDT Office Visit Family Medicine [address] [place] [phone] Melissa Hand MD [address] [place] [address] [place] [address] 11/06/2023 11:15 AM EDT Office Visit Urology, [facility] 132 [facility] [place] [address] Zbigniew Holder MD [address] [address] [place] [address] 01/17/2024 10:00 AM EDT Office Visit Hepatology, [facility] 132 [facility] [place] [address] Jaclyn Jay MD [address] [place] [address] 01/24/2024 9:30 AM EDT Cardiac Studies Cardiology, [facility] 132 [facility] [place] [address] [facility] 132 [facility] [place] [address] 02/18/2024 2:45 PM EST Office Visit Hematology/Oncology [facility] [place] 200 [facility] [place] [phone] Blayne Caruso MD 200 [facility] [place] [address] 09/09/2024 1:20 PM EDT Office Visit Dermatology [address] [place] [address] aGby Pitt PA-C [address] [place] [address] [place] [address] Health Maintenance Due Date Last Done Comments [...] 08/10/2022, Additional history exists GFR 01/23/2024 07/24/2023, 07/07, 06/14/2023, Additional history exists PTH 06/21/2024 06/22/2023, 030 [...] Documents on File Type Date Recorded Patient Bioinformatics Associate Expl anation POLST 12/20/2022 2:13 PM POLST (Rosen ited DNR) Care Teams Litigation Examiner Relationship Specialty Start Date End Date Melissa Hand MD [address] [place] [address] [place] [address] PCP - General Family Medicine 03/11/19 documented as of this encounter
--- OUTSIDE RECORDS SUMMARY | 2023-12-30 03:19 | External Medical Summary | Summary of Care ---
Author Name Unknown Organization [facility] Address [address] [facility] [address] Phone [phone] Care Team Providers Care Blender Snuff Name Role Phone Melissa Hand MD Primary Care Prov ider Reason for Visit * Reason Onset Date Comments Home Health 09/25/2023 Encounter Details Date Type Department Care Team (Late st Contact Info) Description 09/25/2023 Telephone Family Medicine [address] [phone] Melissa Hand MD [address] [place] [address] [place] [address] Home Health Allergies Active Allergy Reactions [...] long-term current use of insulin ([facility]) Inject 0.75 mg under the skin once [...] Recurrent major depressive disorder, in full remission ([facility]) Take 1.5 Tablets by mouth at bedtime. [...] long-term current use of insulin ([facility]) test blood sugar 3 times daily dx [...] (Prevnar) 03/10/2019 Pneumococcal Conjugate Vacci ne, 20-valent ([id number]) 09/19/2021 Pneumococcal Polysaccharide PPV23 (Pneumovax) 09/08/2015 Season [...] No 08/05/2023 Does the household have a [facility] source of income? (Household - [...] Telephone Encounter - Felicitas Rousseau LPN - 09/26/2023 8:56 AM EDT [facility] aware of Note Below * Telephone Encounter - Melissa Hand MD - 09/25/2023 12:44 PM EDT Yes please add wound care to her HH referral * Telephone Encounter - Chelle Javed LPN - 09/25/2023 9:45 AM EDT HH Concerns Sofi RN, Calling from: [facility] Report/Concerns of: left 5 th toe wound Symptoms: Blood blister left great toe and small ulcer side of left foot. Narrative: Sofi calling from [facility]. Patient has PT and OT. Would the doctor like her to evaluate her wounds and maybe apply dressings Call back Sofi with any advice or orders at [phone] Please fax new orders to [phone] documented in this encounter Plan of Treatment Upcoming Encounters Date Type Department Care Team (Late st Contact Info) Description 10/04/2023 9:45 AM EDT Imaging Radiology [address] [place] [address] 10/22/2023 8:20 AM EDT Office Visit Family Medicine [address] [phone] Melissa Hand MD [address] [place] [address] [place] [address] 11/06/2023 11:15 AM EDT Office Visit Urology, [facility] 132 [facility] [place] [address] Zbigniew Holder MD 27 [facility] 270 [place] [address] 01/03/2024 1:00 PM EDT Office Visit Family Medicine [address] [place] [phone] Mony Reid CRNP [address] [place] [address] [place] [address] 01/17/2024 10:00 AM EDT Office Visit Hepatology, [facility] 132 [facility] [place] [address] Jaclyn Jay MD [address] [place] [address] 01/24/2024 9:30 AM EDT Cardiac Studies Cardiology, [facility] 132 [facility] [place] [address] [place], [facility] 132 [facility] [place] [address] 02/18/2024 2:45 PM EST Office Visit Hematology/Oncology [facility] [address] [place] [phone] Blayne Caruso MD [address] [place] [address] 09/09/2024 1:20 PM EDT Office Visit Dermatology [address] [place] [address] Gaby Pitt PA-C [address] [place] [address] [place] [address] Health Maintenance Due Date Last Done Comments [...] on File Type Date Recorded Patient Manager Intermediate Expl anation POLST 12/20/2022 2:13 PM POLST (Rosen ited DNR) Care Teams Blender Snuff Relationship Specialty Start Date End Date Melissa Hand MD [address] [place] [address] [place] [address] PCP - General Family Medicine 03/11/19 documented as of this encounter
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
--- OUTSIDE RECORDS SUMMARY | 2023-12-30 03:19 | External Medical Summary | Summary of Care ---
Author Name Unknown Organization [facility] Address [address] [facility] [address] Phone [phone] Care Team Providers Care Global Mobility Specialist Name Role Phone Melissa Hand MD Primary Care Prov ider Reason for Visit * Reason Onset Date Comments Home Health 06/25/2023 Encounter Details Date Type Department Care Team (Late st Contact Info) Description 06/25/2023 Telephone Family Medicine [address] [phone] Melissa Hand MD [address] [place] [address] [place] [address] Home Health Allergies Active Allergy Reactions Criticality Noted Date Comments Lisinopril Cough Low 04/25/2020 High potassium documented as of this encounter (statuses as of 09/24/2023) Medications Medication Sig Dispensed Refills Start Date [...] 30 DAYS 60 Tablet 5 06/24/2023 Active documented as of this encounter (statuses as of 09/24/2023) Active Problems Problem Noted Date Diagnosed Date [...] as of this encounter (statuses as of 09/24/2023) Resolved Problems Problem Noted Date Diagnosed Date [...] as of this encounter (statuses as of 09/24/2023) Immunizations Name Administration Dates Next Due Influenza, Whole Virus 01/16/2013,04/20/2011 Pneumococcal Conjugate Vacc, 13 Valent (Prevnar) 03/10/2019 Pneumococcal Conjugate Vacci ne, 20-valent ([id number]) 09/19/2021 Pneumococcal Polysaccharide PPV23 (Pneumovax) 09/08/2015 Season [...] Telephone Encounter - Chelle Javed LPN - 06/25/2023 4:02 PM EDT HH Admission/Start of Care Admission/Start of Care: Ed Franklin PT, Calling from: [place] Referral ordered by: Dr. Melissa Martinez Referral received for: PT Planned start of care date:Yes, Date 06/25/23 Start of care completed on: 06/25/23 Report/Concerns of:None Symptoms: none Vitals: T 97.1 P 70 RR 18 BP 118/60 SP O2 96 on room air Lung sounds clear Weight 126lb Blood sugar n/a Narrative: Ed Franklin PT calling from [facility]. Opened the patient today for strengthening, functional mobility and safety. Next PT visit(s) on next week They will call with any updates or additional concerns from the upcoming visit. Last Office Visit: 03/08/2023 Has patient been scheduled or seen in the office for a follow up visit: Yes- on 06/22/23 Advised that orders will be signed by Dr. Melissa Martinez and to fax to the office for signature. Call back ED with advice or orders at [phone] Please fax orders to [phone] documented in this encounter Plan of Treatment Upcoming Encounters Date Type Department Care Team (Late st Contact Info) Description 10/04/2023 9:45 AM EDT Imaging Radiology [address] [place] [address] 10/22/2023 8:20 AM EDT Office Visit Family Medicine [address] [phone] Melissa Hand MD [address] [place] [address] [place] [address] 11/06/2023 11:15 AM EDT Office Visit Urology, [facility] 132 [facility] [place] [address] Zbigniew Holder MD 27 [facility] [address] [place] [address] 01/03/2024 1:00 PM EDT Office Visit Family Medicine [address] [place] [address] Mony Reid CRNP [address] [place] [address] [place] [address] 01/17/2024 10:00 AM EDT Office Visit Hepatology, [facility] 132 [facility] [place] [address] Jaclyn Jay MD [address] [place] [phone] 01/24/2024 9:30 AM EDT Cardiac Studies Cardiology, [facility] 132 [facility] [place] [address] [place] 132 [facility] [place] [address] 02/18/2024 2:45 PM EST Office Visit Hematology/Oncology [facility] [address] [place] [phone] Blayne Caruso MD [address] [place] [address] 09/09/2024 1:20 PM EDT Office Visit Dermatology [address] [place] [address] Gaby Pitt PA-C [address] [place] [address] [place] [address] Health Maintenance Due Date Last Done Comments [...] Documents on File Type Date Recorded Patient Glove Wrapper Expl anation POLST 12/20/2022 2:13 PM POLST (Rosen ited DNR) Care Teams Global Mobility Specialist Relationship Specialty Start Date End Date Melissa Hand MD [address] [place] [address] [place] [address] PCP - General Family Medicine 03/11/19 documented as of this encounter
--- OUTSIDE RECORDS SUMMARY | 2023-12-30 03:19 | External Medical Summary | Summary of Care ---
Author Name Unknown Organization [facility] Address [address] [facility] [place] [address] Phone [phone] Care Team Providers Care Customer Contact Sales Associate Name Role Phone Melissa Hand MD Primary Care Prov ider Reason for Visit * Reason Onset Date Comments Advice 09/10/2023 Encounter Details Date Type Department Care Team (Late st Contact Info) Description 09/10/2023 Telephone Family Medicine [address] [phone] Melissa Hand MD [address] [place] [address] [place] [address] Advice Allergies Active Allergy Reactions Criticality Noted Date Comments Lisinopril Cough Low 04/25/2020 High potassium documented as of this encounter (statuses as of 09/10/2023) Medications Medication Sig Dispensed Refills Start Date [...] with long-term current use of insulin ([facility]) Inject 0.75 mg under the skin [...] major depressive disorder, in full remission ([facility]) Take 1.5 Tablets by mouth at [...] with long-term current use of insulin ([facility]) test blood sugar 3 times daily [...] as of this encounter (statuses as of 09/10/2023) Active Problems Problem Noted Date Diagnosed Date [...] as of this encounter (statuses as of 09/10/2023) Resolved Problems Problem Noted Date Diagnosed Date [...] as of this encounter (statuses as of 09/10/2023) Immunizations Name Administration Dates Next Due Influenza, Whole Virus 01/16/2013,04/20/2011 Pneumococcal Conjugate Vacc, 13 Valent (Prevnar) 03/10/2019 Pneumococcal Conjugate Vacci ne, 20-valent ([id number]) 09/19/2021 Pneumococcal Polysaccharide PPV23 (Pneumovax) 09/08/2015 Season [...] encounter Miscellaneous Notes * Telephone Encounter - Madisyn Benjamin LPN - 09/10/2023 6:29 PM EDT RINA. * Telephone Encounter - Lizbeth Everett OSA - 09/10/2023 12:27 PM EDT Reason for patient's call: Lizbeth from [facility] states that the patient had two falls. Lizbeth states that last night the patient slid out of her chair to the ground and this morning fell asshe was walking out of the bathroom. Lizbeth states that the patient has no injuries that she can see and her only complaint is that she hurt her bottom. Lizbeth can be contacted at [phone]. documented in this encounter Plan of Treatment Upcoming Encounters Date Type Department Care Team (Late st Contact Info) Description 10/04/2023 9:45 AM EDT Imaging Radiology [address] [place] [address] 10/22/2023 8:20 AM EDT Office Visit Family Medicine [address] [place] [phone] Melissa Hand MD [address] [place] [address] [place] [address] 11/06/2023 11:15 AM EDT Office Visit Urology, [facility] 132 [facility] [place] [address] Zbigniew Holder MD [address] [place] [address] [place] [address] 01/17/2024 10:00 AM EDT Office Visit Hepatology, [facility] [address] [facility] [place] [address] Jaclyn Jay MD [address] [place] [address] 01/24/2024 9:30 AM EDT Cardiac Studies Cardiology, [facility] [address] [place] [address] [place] [address] [place] [address] 02/18/2024 2:45 PM EST Office Visit Hematology/Oncology [facility] 200 [facility] [place] [phone] Blayne Caruso MD [address] [place] [address] 09/09/2024 1:20 PM EDT Office Visit Dermatology [address] [place] [address] Gaby Pitt PA-C [address] [place] [address] [place] [address] Health Maintenance Due Date Last Done Comments [...] 07/24/2023, 041 , 06/22/2023, Additional history exists Colonoscopy 09/13/2029 [...] Documents on File Type Date Recorded Patient Debate Director Expl anation POLST 12/20/2022 2:13 PM POLST (Rosen ited DNR) Care Teams Customer Contact Sales Associate Relationship Specialty Start Date End Date Melissa Hand MD [address] [place] [address] [place] [address] PCP - General Family Medicine 03/11/19 documented as of this encounter
--- OUTSIDE RECORDS SUMMARY | 2023-12-30 03:19 | External Medical Summary | Summary of Care ---
Author Name Unknown Organization [facility] Address [address] [facility] [place] [address] Phone [phone] Care Team Providers Care Foam Charger Name Role Phone Melissa Hand MD Primary Care Prov ider Reason for Visit * Reason Onset Date Comments Appointment 09/20/2023 Encounter Details Date Type Department Care Team (Late st Contact Info) Description 09/20/2023 Telephone Family Medicine [address] [phone] Melissa Hand MD [address] [place] [address] [place] [address] Appointment Allergies Active Allergy Reactions Criticality Noted Date Comments Lisinopril Cough Low 04/25/2020 High potassium documented as of this encounter (statuses as of 09/23/2023) Medications Medication Sig Dispensed Refills Start Date [...] of insulin ([facility]) Inject 0.75 mg under the skin once [...] of insulin ([facility]) test blood sugar 3 times daily [...] as of this encounter (statuses as of 09/23/2023) Active Problems Problem Noted Date Diagnosed Date [...] as of this encounter (statuses as of 09/23/2023) Resolved Problems Problem Noted Date Diagnosed Date [...] as of this encounter (statuses as of 09/23/2023) Immunizations Name Administration Dates Next Due Influenza, Whole Virus 01/16/2013,04/20/2011 Pneumococcal Conjugate Vacc, 13 Valent (Prevnar) 03/10/2019 Pneumococcal Conjugate Vacci ne, 20-valent ([id number]) 09/19/2021 Pneumococcal Polysaccharide PPV23 (Pneumovax) 09/08/2015 Season [...] Telephone Encounter - Tiana Ny OSA - 09/23/2023 9:37 AM EDT Appt scheduled with Mony Reid, pt aware. * Telephone Encounter - Marie Dorado OSA - 09/20/2023 12:43 PM EDT Pt is to f/u with Dr Michael Martinez but there is no openings, please call pt to schedule documented in this encounter Plan of Treatment Upcoming Encounters Date Type Department Care Team (Late st Contact Info) Description 10/04/2023 9:45 AM EDT Imaging Radiology [address] [place] [address] 10/22/2023 8:20 AM EDT Office Visit Family Medicine [address] [phone] Melissa Hand MD [address] [place] [address] [place] [address] 11/06/2023 11:15 AM EDT Office Visit Urology, [address] [place] [address] Zbigniew Holder MD 27 [facility] [address] [place] [address] 01/03/2024 1:00 PM EDT Office Visit Family Medicine [address] [place] [address] Mony Reid CRNP [address] [place] [address] [place] [address] 01/17/2024 10:00 AM EDT Office Visit Hepatology, [facility] [address] [facility] [place] [address] Jaclyn Jay MD [address] [place] [address] 01/24/2024 9:30 AM EDT Cardiac Studies Cardiology, [facility] 132 [facility] [place] [address] [place], [facility] 132 [facility] [place] [address] 02/18/2024 2:45 PM EST Office Visit Hematology/Oncology [facility] [address] [place] [phone] Blayne Caruso MD 200 [facility] [place] [address] 09/09/2024 1:20 PM EDT Office Visit Dermatology [address] [place] [address] Gaby Pitt PA-C [address] [place] [address] [place] [address] Health Maintenance Due Date Last Done Comments [...] Documents on File Type Date Recorded Patient Ring Attacher Expl anation POLST 12/20/2022 2:13 PM POLST (Rosen ited DNR) Care Teams Foam Charger Relationship Specialty Start Date End Date Melissa Hand MD [address] [place] [address] [place] [address] PCP - General Family Medicine 03/11/19 documented as of this encounter
--- OUTSIDE RECORDS SUMMARY | 2023-12-30 03:19 | External Medical Summary | Summary of Care ---
Author Name Unknown Organization [facility] Address [address] [facility] [place] [address] Phone [phone] Care Team Providers Care Tube Dispatcher Name Role Phone Melissa Hand MD Primary Care Prov ider Reason for Visit * Reason Comments Outpatient Testing Encounter Details Date Type Department Care Team (Late st Contact Info) Description 09/26/2023 9:10 AM EDT Laboratory Laboratory [address] [place] [phone] , Specimen Drop Off [address] [place] [address] Recurrent UTI Allergies [...] disease, with long-term current use of insulin ([facility]) Inject 0.75 mg under the skin [...] disease, with long-term current use of insulin ([facility]) test blood sugar 3 times daily [...] (Prevnar) 03/10/2019 Pneumococcal Conjugate Vacci ne, 20-valent ([id number]) 09/19/2021 Pneumococcal Polysaccharide PPV23 (Pneumovax) 09/08/2015 Season [...] No 08/05/2023 Does the household have a [facility] source of income? (Household - for [...] Description 10/04/2023 9:45 AM EDT Imaging Radiology [address] [place] [address] 10/22/2023 8:20 AM EDT Office Visit Family Medicine [address] [place] [phone] Melissa Hand MD [address] [place] [address] [place] [address] 11/06/2023 11:15 AM EDT Office Visit Urology, [facility] 132 [facility] [place] [address] Zbigniew Holder MD [address] [place] [address] 01/03/2024 1:00 PM EDT Office Visit Family Medicine [address] [place] [phone] Mony Reid CRNP [address] [place] [address] [place] [address] 01/17/2024 10:00 AM EDT Office Visit Hepatology, [facility] [address] [facility] [place] [address] Jaclyn Jay MD [address] [place] [address] 01/24/2024 9:30 AM EDT Cardiac Studies Cardiology, [facility] [address] [facility] [place] [address] [facility] [address] 02/18/2024 2:45 PM EST Office Visit Hematology/Oncology [facility] 200 [facility] [place] [phone] Blayne Caruso MD 200 [facility] [place] [address] 09/09/2024 1:20 PM EDT Office Visit Dermatology [address] [place] [address] Gaby Pitt PA-C [address] [place] [address] [place] [address] Pending Results Name Type Priority Associated Diagnoses [...] Documents on File Type Date Recorded Patient Intensive Care Ambulance Paramedic Expl anation POLST 12/20/2022 2:13 PM POLST (Rosen ited DNR) Care Teams Tube Dispatcher Relationship Specialty Start Date End Date Melissa Hand MD [address] [place] [address] [place] [phone] PCP - General Family Medicine 03/11/19 documented as of this encounter
--- OUTSIDE RECORDS SUMMARY | 2023-12-30 03:20 | External Medical Summary | Summary of Care ---
Author Name Unknown Organization [facility] Address [address] [facility] [place] [address] Phone [phone] Care Team Providers Care Wire Temperer Name Role Phone Melissa Hand MD Primary Care Prov ider Encounter Details Date Type Department Care Team (Late st Contact Info) Description 08/05/2023 9:30 AM EDT Home Visit Care Coordination and Integration [address] [facility] [place] [phone] Alivia Campbell [facility] [address] [place] [address] Allergies Active Allergy Reactions Criticality Noted Date Comments Lisinopril Cough Low 04/25/2020 High potassium documented as of this encounter (statuses as of 08/05/2023) Medications Medication Sig Dispensed Refills Start Date [...] disease, with long-term current use of insulin ([facility]) Inject 0.75 mg under the [...] Recurrent major depressive disorder, in full remission ([facility]) Take 1.5 Tablets by mouth [...] disease, with long-term current use of insulin ([facility]) test blood sugar 3 times daily dx e11.22 300 Strip 1 07/31/2023 Active Cefdinir 300 MG Oral Capsule (Omnicef)Indications :Acute cystitis with hematuria Take 1 Capsule by mouth in the morning. 7 Capsule 0 08/05/2023 Active documented as of this encounter (statuses as of 08/05/2023) Active Problems Problem Noted Date Diagnosed Date [...] as of this encounter (statuses as of 08/05/2023) Resolved Problems Problem Noted Date Diagnosed Date [...] as of this encounter (statuses as of 08/05/2023) Immunizations Name Administration Dates Next Due Influenza, Whole Virus 01/16/2013,04/20/2011 Pneumococcal Conjugate Vacc, 13 Valent (Prevnar) 03/10/2019 Pneumococcal Conjugate Vacci ne, 20-valent ([id number]) 09/19/2021 Pneumococcal Polysaccharide PPV23 (Pneumovax) 09/08/2015 Season [...] documented in this encounter Progress Notes * Alivia Campbell, Community Health Distributor Sales Manager - 08/05/2023 1:17 PM EDT Telemedicine visit: No Community Health Distributor Sales Manager (RENE) documentation: CHW home visit for med review and safety assessment following DC from [facility] rehab. Per son - last month, patient lost balance and fell into table, resulting in head injury. Presented to [facility]. Head laceration stapled in ED, patient admitted to [facility]. Patient then transferred to [facility] to beunder the care of neurosurgery due to concern for cerebral edema. Son reports thoracentesis at [facility] - states provider elected this over diuresis d/t decreased kidney function. From there, patient admitted to [facility] for rehab. Son asking if records received from [facility] and [facility]. Son reports patient has experienced a change [...] 08/16/2023 1:15 PM EDT Office Visit Hematology/Oncology [facility] [address] [place] [phone] Blayne Caruso MD 200 [facility] [place] [address] 08/28/2023 1:20 PM EDT Office Visit Dermatology [address] [place] [address] Gaby Pitt PA-C [address] [place] [address] [place] [address] 10/04/2023 9:45 AM EDT Imaging Radiology [address] [place] [address] 10/22/2023 8:20 AM EDT Office Visit Family Medicine [address] [place] [phone] Melissa Hand MD [address] [place] [address] [place] [address] 11/06/2023 11:15 AM EDT Office Visit Urology, [facility] [address] [place] [address] Zbigniew Holder MD [address] [place] [address] 01/17/2024 10:00 AM EDT Office Visit Hepatology, [facility] 132 [facility] [place] [address] Jaclyn Jay MD [address] [place] [address] 01/24/2024 9:30 AM EDT Cardiac Studies Cardiology, [facility] [address] [facility] 132 [place] [address] Health Maintenance Due Date Last Done Comments [...] Documents on File Type Date Recorded Patient Stock Analyst Expl anation POLST 12/20/2022 2:13 PM POLST (Rosen ited DNR) Care Teams Wire Temperer Relationship Specialty Start Date End Date Melissa Hand MD NPI: [id number] [place] [address] [place] [address] PCP - General Family Medicine 03/11/19 documented as of this encounter
--- OUTSIDE RECORDS SUMMARY | 2023-12-30 03:20 | External Medical Summary | Summary of Care ---
Author Name Unknown Organization [facility] Address [address] [facility] [address] Phone [phone] Care Team Providers Care Service Director Name Role Phone Melissa Hand MD Primary Care Prov ider Reason for Visit * Reason Comments Hospital Follow-Up Encounter Details Date Type Department Care Team (Late st Contact Info) Description 07/29/2023 3:20 PM EDT Office Visit Family Medicine [address] [phone] Kyree Sainz MD [address] [place] [address] [place] [address] Anemia of chronic renal failure, stage 4 (severe) (HCC)*; CKD (chronic kidney disease), stage IV (HCC); Essential hypertension with goal blood pressure less than 130/80; Nocturnal hypoxemia; Scalp laceration, sequela Allergies Active Allergy Reactions Criticality Noted Date Comments Lisinopril Cough Low 04/25/2020 High potassium documented as of this encounter (statuses as of 07/29/2023) Medications Medication Sig Dispensed Refills Start Date End Date Status Acetaminophen 325 MG Oral Tablet Take 2 Tablets by mouth every 4 hours as needed. 100 Tab 0 9 Active nitroglycerin (NITROSTAT) 0.[address] 1 Tab under the tongue as needed for Pain, Chest. May repeat 3 times. If chest pain continues, call 911. 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 E11.9 100 Each 5 0 Active Vitamin D3 25 MCG (1000 UT) Oral Tablet (Vitamin D3) Take 1 Tablet by mouth in the morning. 0 1 Active OneTouch Verio In Vitro Strip (Glucose Blood)Indications :Type 2 diabetes mellitus with stage 4 chronic kidney disease, with long-term current use of insulin (HCC) test blood sugar 3 times daily dxe11.22. is on insulin 100 Strip 5 2 Active Cranberry 50 MG Oral Tablet Chewable Once per daily 0 3 Active Ketoconazole 2 % External CreamIndications: Seborrheic dermatitis Apply 2x daily to rash on face until resolved, then when flaring 60 g 2 3 Active Ketoconazole 2 % External Shampoo (Nizoral)Indicati ons:Seborrheic dermatitis MASSAGE INTO SCALP AND RINSE OUT AFTER FIVE TO TEN MINUTES, DO 3 TIMES WEEKLY THEN APPLY CLINDAMYCIN GEL TO OPEN SORES IF NEEDED 360 mL 2 3 Active Metoprolol Succinate ER 50 MG Oral Tablet Extended Release 24 Hour (toPROL XL)Indications:Ch ronic systolic congestive heart failure (HCC) TAKE ONE [...] fluid retention 90 Tablet 3 3 Active Benzonatate 100 MG Oral CapsuleIndication s:Viral URI with cough Take 1 Capsule by mouth 3 times a day as needed for Cough. 50 Capsule 1 3 Active Gabapentin 100 MG Oral Capsule (Neurontin)Indica tions:Coccyx pain,Sacral back pain TAKE ONE CAPSULE BY MOUTH EVERY DAY 90 Capsule 1 3 Active Basaglar KwikPen 100 UNIT/ML Subcutaneous Solution Pen-injector (Insulin Glargine Solostar) inject 15 units under the skin at bedtime 15 mL 1 4 Active Trulicity 1.5 MG/0.5ML Subcutaneous Solution Pen-injector (Dulaglutide)Christina cations:Type 2 diabetes mellitus with stage 4 chronic kidney disease, with long-term current use of insulin (HCC) Inject 1.5 mg under the skin once a week. 2 mL 5 4 Active Trulicity 0.75 MG/0.5ML Subcutaneous Solution Pen-injector (Dulaglutide)Christina cations:Type 2 diabetes mellitus with stage 4 chronic kidney disease, with long-term current use of insulin (HCC) Inject 0.75 mg under the skin once a week. 2 mL 11 4 Active Aspirin Low Dose 81 MG Oral Tablet Delayed Release (aspirin enteric coated) TAKE ONE TABLET BY MOUTH EVERY DAY 90 Tablet 3 4 Active Mirtazapine 15 MG Oral Tablet (Remeron)Indicati ons:Recurrent major depressive disorder, in full remission (HCC),Poor appetite TAKE ONE TABLET BY MOUTH AT BEDTIME 30 Tablet 5 4 Active Sertraline HCl 100 MG Oral Tablet (Zoloft)Indicatio ns:Recurrent major depressive disorder, in full remission (HCC) Take 1.5 Tablets by mouth at bedtime. 135 Tablet 1 4 Active ALPRAZolam 0.25 MG Oral Tablet (Xanax)Indication s:Irritability Take 1 Tablet by mouth daily as needed for Anxiety or Agitation. 4 Tablet 0 4 Active Isosorbide Dinitrate 10 MG Oral Tablet (Isordil) TAKE ONE TABLET BY MOUTH TWICE DAILY AT 0700 AND 1200 FOR 30 DAYS 60 Tablet 5 4 Active Rosuvastatin Calcium 10 MG Oral Tablet (Crestor) Take 1 Tablet by mouth in the morning. 90 Tablet 1 4 Active Rosuvastatin Calcium 10 MG Oral Tablet (Crestor) Take 1 Tablet by mouth in the morning. 90 Tablet 0 4 07/29/19 24 Discontinued(Re fill) Sulfamethoxazole- Trimethoprim 400-80 MG Oral Tablet (Bactrim) Take 1 Tablet by mouth in the morning and 1 Tablet before bedtime. 14 Tablet 4 4 07/29/19 24 Discontinued documented as of this encounter (statuses as of 07/29/2023) Active Problems Problem Noted Date Diagnosed Date [...] as of this encounter (statuses as of 07/29/2023) Resolved Problems Problem Noted Date Diagnosed Date [...] as of this encounter (statuses as of 07/29/2023) Immunizations Name Administration Dates Next Due Influenza, Whole Virus 01/16/2013,04/20/2011 Pneumococcal Conjugate Vacc, 13 Valent (Prevnar) 03/10/2019 Pneumococcal Conjugate Vacci ne, 20-valent ([id number]) 09/19/2021 Pneumococcal Polysaccharide PPV23 (Pneumovax) 09/08/2015 Season [...] Answer Date Recorded PHQ Adult Total Score 0 06/29/2022 Hunger Vital Sign Answer Date Recorded Within the past 12 months, y ou worried that your food would run out before you got the money to buy more. Patient declined Within the past 12 months, t he food you bought just didn't last and you didn't have money to get more. Patient declined Sex and Gender Information Value Date Recorded Sex Assigned at Female 12/29/2020 4:04 PM EDT Gender Identity Female 12/29/2020 4:04 PM EDT Sexual Orientation Straight 12/29/2020 4: 04 PM EDT Job Start Date Occupation Industry Not on file Not on file Not on file documented as of this encounter Last Filed Vital Signs Vital Sign Reading Time Taken Comments Blood Pressure 124/58 07/29/2023 3:33 PM EDT Pulse 79 07/29/2023 3:33 PM EDT Temperature 35.8 C (96.4 F) 07/29/2023 3:33 PM ED T Respiratory Rate - - Oxygen Saturation 95% 07/29/2023 3:33 PM EDT Inhaled Oxygen Concentration - - Weight 54.3 kg (119 lb 12.8 oz) 07/29/2023 3:33 PM EDT Height - - Body Mass Index 19.94 12/31/2022 1:02 PM EDT documented in this encounter Progress Notes * Kyree Sainz MD - 07/29/2023 3:12 PM EDT Radha is deconditioned, living above son's garage, and fell onto a table and split her head, had 6 pat. She is on blood thinners, bled profusely but did not pass out. She was stapled at [facility] and then transferred to [place] because of swelling of the brain or maybe subdural. She had a pleural effusion drained and then was sent to [facility]. Admitted to [facility] on 07/04, home from [facility] yesterday. Med reviewed. Son and daughter are helping with her and she is getting nursing and PT> Patient Active Problem List Diagnosis Code Essential hypertension with goal blood pressure less than 130/80 I10 Non-rheumatic mitral regurgitation I34.0 Systolic congestive heart failure (HCC) I50.20 Anemia of chronic renal failure, stage 4 (severe) (HCC) N18.4, D63.1 Ischemic cardiomyopathy I25.5 DM (diabetes mellitus), type 2, uncontrolled, with renal complications [id number] ALBARO (generalized anxiety disorder) F41.1 Dyslipidemia, goal LDL below 70 E78.5 GERD without esophagitis K21.9 CKD (chronic kidney disease), stage IV (HCC) N18.4 AICD (automatic cardioverter/defibrillator) present Z95.810 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 (HCC) I13.0, I50.22, N18.4 Type 2 diabetes mellitus with stage 4 chronic kidney disease, with long-term current use of insulin(HCC) E11.22, N18.4, Z79.4 Recurrent major depressive disorder, in full remission ([facility]) F33.42 JEREMIE (obstructive sleep apnea) G47.33 Nocturnal hypoxemia G47.34 Tension headache G44.209 Slow transit constipation K59.01 Mixed incontinence N39.46 Abnormal results of liver function studies R94.5 Pancytopenia (HCC) D61.818 Other cirrhosis of liver ([facility]) K74.69 Past Medical History: Diagnosis Date AICD (automatic [...] prior echocardiogram Non-STEMI (non-ST elevated myocardial infarction) ([facility]) Pneumonia involving right lung Pneumonia involving right lung Sleep apnea, obstructive Past Surgical History: Procedure Laterality Date ADULT ECHOCARDIOGRAM 02/04/2019 mildly dilated LA and LV. severe global dyskineis of LV, LV systolic function severely reduced. LVEF 20 to 25%. mild , moderate MR. [facility] COLONOSCOPY, DIAGNOSTIC (RECTUM) N/A 09/14/2019 biopsies show adenomatous polyps/recall 5 years/Colonoscopy/[facility] EGD, FLEXIBLE, DIAGNOSTIC N/A 09/14/2019 tu holder grade III erosive esophagitis/non-bleeding gastric ulcers/biopsies show mild irritation of stomach/repeat 8 wks/EGD/[facility] LIGATE/CUT OVIDUCT(S) 1985 SINGLE-LEAD DEFIBRILLATOR + REPROGRAM 2017 Review of patient's allergies indicates: Allergen Reactions Lisinopril Cough High potassium Social History Socioeconomic History Marital status: Spouse [...] Resource Strain: Not on file Food Insecurity: Patient Declined (06/29/2022) Hunger Vital Sign Worried About Running Out of Food in the Last Year: Patient declined Ran Out of Food in the Last Year: Patient declined Transportation Needs: Not on file Physical Activity: Not on file Stress: Not on file Social Connections: Not on file Intimate Partner Violence: Not on file Housing Stability: Not on file Current Outpatient Medications Medication Sig Dispense Refill Acetaminophen 325 MG Oral Tablet Take 2 Tablets by mouth every 4 hours as needed. 100 Tab 0 nitroglycerin (NITROSTAT) 0.[address] 1 Tab under the tongue as needed for Pain, Chest. May repeat 3 times. If chest pain continues, call 911. 25 Tab 0 Glucose Blood (ONETOUCH VERIO) STRP Use 4 times a day E11.9 insulin dependent 120 Strip 5 Lancets MISC Test 3 times daily E11.9 100 Each 5 OneTouch Delica Lancets 33G MISC Test 3 times daily. E11.9 100 Each 5 Vitamin D3 25 MCG (1000 UT) Oral Tablet (Vitamin D3) Take 1 Tablet by mouth in the morning. OneTouch Verio In Vitro Strip (Glucose Blood) test blood sugar 3 times daily dxe11.22. is on insulin 100 Strip 5 Cranberry 50 MG Oral Tablet Chewable Once [...] BY MOUTH EVERY DAY 90 Capsule 1 Rosuvastatin Calcium 10 MG Oral Tablet (Crestor) Take 1 Tablet by mouth in the morning. 90 Tablet 0 Basaglar KwikPen 100 UNIT/ML Subcutaneous Solution Pen-injector [...] BY MOUTH AT BEDTIME 30 Tablet 5 Sulfamethoxazole-Trimethoprim 400-80 MG Oral Tablet (Bactrim) Take 1 Tablet by mouth in the morningand 1 Tablet before bedtime. 14 Tablet 4 Sertraline HCl 100 MG Oral Tablet (Zoloft) Take 1.5 Tablets by mouth at bedtime. 135 Tablet 1 ALPRAZolam 0.25 MG Oral Tablet (Xanax) Take 1 Tablet by mouth daily as needed for Anxiety or Agitation. 4 Tablet 0 Isosorbide Dinitrate 10 MG Oral Tablet (Isordil) TAKE ONE TABLET BY MOUTH TWICE DAILY AT 0700 AND 1200 FOR 30 DAYS 60 Tablet 5 No current facility-administered medications for this visit. Immunization History Administered Date(s) Administered Influenza, Whole Virus 04/20/2011, 01/16/2013 Pneumococcal Conjugate Vacc, 13 Valent (Prevnar) 03/10/2019 Pneumococcal Conjugate Vaccine, 20-valent ([id number]) 09/19/2021 Pneumococcal Polysaccharide PPV23 (Pneumovax) 09/08/2015 Season Influenza, Quad, PF, Adjuvanted, 65+ Yrs, IM (FLUAD) 01/21/2020 Seasonal Influenza, Quadrivalent Hd (Fluzone Hd) 03/16/2021, 01/19/2022, 03/08/2023 Seasonal Influenza, Trivalent, Adjuvanted, 65+ yrs 03/10/2019 Zoster Vaccine Recombinant (Shingrix) 09/26/2019, 12/16/2019 CBC Results: Results for orders placed or [...] K/uL MPV 10.7 6.6 - 11.1 fL Results for orders placed or performed in visit on 06/14/23 LIPID PANEL WITH DIRECT LDL IF TG IS HIGH Result Value Ref Range Triglycerides 63 <=174 mg/dL Cholesterol 76 <200 mg/dL HDL Cholesterol 33 (L) >49 mg/dL Non-HDL Cholesterol 43 <=159 mg/dL LDL Cholesterol 30 <=129 mg/dL Results for orders placed or performed in visit on 07/24/23 BASIC METABOLIC PANEL Result Value Ref Range BUN 84 (H) 6 - 20 mg/dL Creatinine 1.8 (H) 0.5 - 1.0 mg/dL Estimated Glomerular Filtration Rate 29 (L) >=60 mL/min Sodium 139 135 - 146 mmol/L Potassium 4.9 3.5 - 5.1 mmol/L Chloride 103 98 - 107 mmol/L CO2 23 22 - 32 mmol/L Anion Gap 13 7 - 15 mmol/L Glucose 143 (H) 70 - 120 mg/dL Calcium 9.2 8.4 - 10.2 mg/dL Lab Results Component Value Date/Time HEMOGLOBIN A1C - [facility] 7.8 (H) 06/14/2023 08:40 AM HEMOGLOBIN A1C - [facility] 8.1 (H) 11/08/2022 10:39 AM HEMOGLOBIN A1C - [facility] 6.9 (H) 05/18/2022 03:24 PM HEMOGLOBIN A1C - [facility] 6.4 (H) 04/25/2020 02:16 PM HEMOGLOBIN A1C - [facility] 9.4 (H) 11/16/2019 02:03 PM HEMOGLOBIN A1C - [facility] 6.6 (H) 08/26/2019 03:00 PM O: Blood pressure 124/58, pulse 79, temperature 35.8 C (96.4 F), weight 54.3 kg (119 lb 12.8 oz), SpO2 95%. She is not ambulatory. She has a healed 4 cm laceration. Maurepas removed. Lungs clear. Heart paced No edema A: Anemia of chronic renal failure, stage 4 (severe) (HCC) (Primary) CKD (chronic kidney disease), stage IV (HCC) Essential hypertension with goal blood pressure less than 130/80 Nocturnal hypoxemia Scalp laceration, sequela Other orders - Rosuvastatin Calcium 10 MG Oral Tablet (Crestor); Take 1 Tablet by mouth in the morning. Follow Up: Return if symptoms worsen or fail to improve. documented in this encounter Nursing Notes * Kiesha Virgen CMA - 07/29/2023 3:28 PM EDT She was discharged from [facility] 07/27/2022. She is having uncontrollable BM. Her son says the stool seems to firming up some but its still bad.Her mobility is extremely limited. PT/OT and nursing will be coming in the home. documented in this encounter Plan of Treatment Upcoming Encounters Date Type Department Care Team (Late st Contact Info) Description 08/02/2023 3:00 PM EDT Office Visit Hepatology, [facility] [address] [facility] [place] [address] Jaclyn Jay MD [address] [place] [address] 08/16/2023 1:15 PM EDT Office Visit Hematology/Oncology [facility] [address] [place] [phone] Blayne Carsuo MD [address] [place] [address] 08/28/2023 1:20 PM EDT Office Visit Dermatology [address] [place] [address] Gaby Pitt PA-C [address] [place] [address] [place] [address] 10/04/2023 9:45 AM EDT Imaging Radiology [address] [place] [address] 10/22/2023 8:20 AM EDT Office Visit Family Medicine [address] [place] [phone] Melissa Hand MD [address] [place] [address] [place] [address] 11/06/2023 11:15 AM EDT Office Visit Urology, [facility] [address] [place] [address] Zbigniew Holder MD [address] [place] [address] [place] [address] 01/24/2024 9:30 AM EDT Cardiac Studies Cardiology, [facility] 132 [facility] [place] [address] [facility] [address] [place] [address] Health Maintenance Due Date Last Done Comments [...] renal failure, stage 4 (severe) (HCC)- Primary CKD (chronic kidney disease), stage IV (HCC) Chronic kidney disease, Stage IV (severe) Essential hypertension with goal blood pressure less than 130/80 Nocturnal hypoxemia Hypoxemia Scalp laceration, sequela documented in this encounter Advance Directives Documents on File Type Date Recorded Patient Curriculum And Instruction Specialist Expl anation POLST 12/20/2022 2:13 PM POLST ([place]osen ited DNR) Care Teams Service Director Relationship Specialty Start Date End Date Melissa Hand MD [address] [place] [address] [place] [address] PCP - General Family Medicine 03/11/19 documented as of this encounter
--- OUTSIDE RECORDS SUMMARY | 2023-12-30 03:20 | External Medical Summary | Summary of Care ---
Author Name Unknown Organization [facility] Address [address] [facility] [address] Phone [phone] Care Team Providers Care Railroad Detective Name Role Phone Melissa Hand MD Primary Care Prov ider Encounter Details Date Type Department Care Team (Late st Contact Info) Description 08/05/2023 Telephone Family Medicine [address] [address] Melissa Hand MD [address] [place] [address] [place] [address] Allergies Active Allergy Reactions [...] long-term current use of insulin ([facility]) Inject 0.75 mg under the skin [...] long-term current use of insulin ([facility]) test blood sugar 3 times daily [...] (Prevnar) 03/10/2019 Pneumococcal Conjugate Vacci ne, 20-valent ([id number]) 09/19/2021 Pneumococcal Polysaccharide PPV23 (Pneumovax) 09/08/2015 Season [...] the money to buy more. Never true 08/01/19 24 Within the past 12 months, t he food you bought just didn't last and you didn't have money to get more. Never true 08/01/2023 Sex and Gender Information Value Date Recorded Sex Assigned at Female 12/29/2020 4:04 PM EDT Gender Identity Female 12/29/2020 4:04 PM EDT Sexual Orientation Straight 12/29/2020 4: 04 PM EDT Job Start Date Occupation Industry Not on file Not on file Not on file documented as of this encounter Miscellaneous Notes * Telephone Encounter - Melissa Hand MD - 08/05/2023 12:25 PM EDT Rx Cefdinir sent for cystitis documented in this encounter Plan of Treatment Upcoming Encounters Date Type Department Care Team (Late st Contact Info) Description 08/16/2023 1:15 PM EDT Office Visit Hematology/Oncology [facility] [place] [phone] Blayne Caruso MD [address] [facility] [place] [address] 08/28/2023 1:20 PM EDT Office Visit Dermatology [address] [place] [address] Gaby Pitt PA-C [address] [place] [address] [place] [address] 10/04/2023 9:45 AM EDT Imaging Radiology [address] [place] [address] 10/22/2023 8:20 AM EDT Office Visit Family Medicine [address] [place] [phone] Melissa Hand MD [address] [place] [address] [place] [address] 11/06/2023 11:15 AM EDT Office Visit Urology, [facility] 132 [facility] [place] [address] Zbigniew Holder MD 27 [facility] [address] [place] [address] 01/17/2024 10:00 AM EDT Office Visit Hepatology, [facility] 132 [facility] [place] [address] Jaclyn Jay MD [address] [place] [address] 01/24/2024 9:30 AM EDT Cardiac Studies Cardiology, [facility] 132 [facility] [place] [address] [place], [facility] [address] [place] [address] Health Maintenance Due Date Last Done Comments [...] 08/10/2022, Additional history exists GFR 01/23/2024 07/24/2023, 041 , 06/14/2023, Additional history exists PTH 06/21/2024 [...] as of this encounter Visit Diagnoses Diagnosis Acute cystitis with hematuria- Primary Acute cystitis documented in this encounter Advance Directives Documents on File Type Date Recorded Patient Passenger Elevator Operator Expl anation POLST 12/20/2022 2:13 PM POLST ([place] ited DNR) Care Teams Railroad Detective Relationship Specialty Start Date End Date Melissa Hand MD [address] [place] [address] [place] [phone] PCP - General Family Medicine 03/11/19 documented as of this encounter
--- OUTSIDE RECORDS SUMMARY | 2023-12-30 03:20 | External Medical Summary | Summary of Care ---
Author Name Unknown Organization [facility] Address [address] [facility] [place] [address] Phone [phone] Care Team Providers Care Dog Bather Name Role Phone Melissa Hand MD Primary Care Prov ider Reason for Visit * Reason Comments Outpatient Testing Encounter Details Date Type Department Care Team (Late st Contact Info) Description 07/31/2023 12:30 PM EDT Laboratory Laboratory [address] [place] [phone] , Specimen Drop Off [address] [place] [address] Recurrent UTI Allergies Active Allergy Reactions Criticality Noted Date Comments Lisinopril Cough Low 04/25/2020 High potassium documented as of this encounter (statuses as of 07/31/2023) Medications Medication Sig Dispensed Refills Start Date [...] with long-term current use of insulin ([facility]) Inject 0.75 mg under the skin once [...] with long-term current use of insulin ([facility]) test blood sugar 3 times daily dx e11.22 300 Strip 1 07/31/2023 Active documented as of this encounter (statuses as of 07/31/2023) Active Problems Problem Noted Date Diagnosed Date [...] as of this encounter (statuses as of 07/31/2023) Resolved Problems Problem Noted Date Diagnosed Date [...] as of this encounter (statuses as of 07/31/2023) Immunizations Name Administration Dates Next Due Influenza, Whole Virus 01/16/2013,04/20/2011 Pneumococcal Conjugate Vacc, 13 Valent (Prevnar) 03/10/2019 Pneumococcal Conjugate Vacci ne, 20-valent ([id number]) 09/19/2021 Pneumococcal Polysaccharide PPV23 (Pneumovax) 09/08/2015 Season [...] 08/02/2023 3:00 PM EDT Office Visit Hepatology, [facility] 132 [facility] [place] [address] Jaclyn Jay MD [address] [place] [address] 08/16/2023 1:15 PM EDT Office Visit Hematology/Oncology [facility] [address] [place] [phone] Blayne Caruso MD [address] [place] [address] 08/28/2023 1:20 PM EDT Office Visit Dermatology [address] [place] [address] Gaby Pitt PA-C [address] [place] [address] [place] [address] 10/04/2023 9:45 AM EDT Imaging Radiology [address] [place] [address] 10/22/2023 8:20 AM EDT Office Visit Family Medicine [address] [place] [phone] Melissa Hand MD [address] [place] [address] [place] [address] 11/06/2023 11:15 AM EDT Office Visit Urology, [facility] 132 [facility] [place] [address] Zbigniew Holder MD 27 [facility] [address] [place] [address] 01/24/2024 9:30 AM EDT Cardiac Studies Cardiology, [facility] 132 [facility] [place] [address] [facility] 132 [facility] [place] [address] Pending Results Name Type Priority Associated Diagnoses Date /Time CULTURE, URINE, QUANTITATIVE Lab Routine Recurrent UTI 07/31/2023 12:31 PM EDT Health Maintenance Due Date Last [...] Documents on File Type Date Recorded Patient Paraprofessional Interpreter Expl anation POLST 12/20/2022 2:13 PM POLST ([place] ited DNR) Care Teams Dog Bather Relationship Specialty Start Date End Date Melissa Hand MD [address] [place] [address] [place] [address] PCP - General Family Medicine 03/11/19 documented as of this encounter
--- OUTSIDE RECORDS SUMMARY | 2023-12-30 03:20 | External Medical Summary | Summary of Care ---
Author Name Unknown Organization [facility] Address [address] [facility] [address] Phone [phone] Care Team Providers Care Can Top Setter Name Role Phone Melissa Hand MD Primary Care Prov ider Reason for Visit * Reason Comments eRx-Medication Refill Encounter Details Date Type Department Care Team (Late st Contact Info) Description 07/28/2023 Refill Family Medicine [address] [phone] Melissa Hand MD [address] [place] [address] [place] [address] Allergies Active Allergy Reactions Criticality Noted [...] call 911. 25 Tab 0 02/26/2019 Active Glucose Blood (ONETOUCH VERIO) STRPIndications:DM (diabetes mellitus), type 2, uncontrolled, with renal complications Use 4 times a day E11.9 insulin dependent 120 Strip 5 08/13/2019 Active Lancets MISC Test 3 times daily E11.9 100 Each 5 11/12/2019 Active OneTouch Delica Lancets 33G MISCIndications:DM (diabetes mellitus), type 2, uncontrolled, with renal complications Test 3 times daily. E11.9 100 Each 5 11/14/2019 Active Vitamin D3 25 MCG (1000 UT) Oral Tablet (Vitamin D3) Take 1 Tablet by mouth in the morning. 0 09/22/2020 Active OneTouch Verio In Vitro Strip (Glucose Blood)Indications: Type 2 diabetes mellitus with stage 4 chronic kidney disease, with long-term current use of insulin (HCC) test blood sugar 3 times daily dxe11.22. is on insulin 100 Strip 5 02/26/2022 Active Cranberry 50 MG Oral Tablet Chewable Once per daily 0 08/08/2022 Active Ketoconazole 2 % External CreamIndications:S [...] 01/30/2023 Active Gabapentin 100 MG Oral Capsule (Neurontin)Indicat [...] mouth in the morning. 90 Tablet 0 04/10/2023 Discontinue d(Refill) documented as of this encounter [...] (Prevnar) 03/10/2019 Pneumococcal Conjugate Vacci ne, 20-valent ([id number]) 09/19/2021 Pneumococcal Polysaccharide PPV23 (Pneumovax) 09/08/2015 Season [...] 08/02/2023 3:00 PM EDT Office Visit Hepatology, [facility] 132 [facility] [place] [address] Jaclyn Jay MD [address] [place] [address] 08/16/2023 1:15 PM EDT Office Visit Hematology/Oncology [facility] [place] [address] [facility] [place] [phone] Blayne Caruso MD 200 [place] [address] 08/28/2023 1:20 PM EDT Office Visit Dermatology [address] [place] [address] Gaby Pitt PA-C [address] [place] [address] [place] [address] 10/04/2023 9:45 AM EDT Imaging Radiology [address] [place] [address] 10/22/2023 8:20 AM EDT Office Visit Family Medicine [address] [place] [phone] Melissa Hand MD [address] [place] [address] [place] [address] 11/06/2023 11:15 AM EDT Office Visit Urology, [facility] 132 [facility] [place] [address] Zbigniew Holder MD [address] [facility] [place] [address] [place] [address] 01/24/2024 9:30 AM EDT Cardiac Studies Cardiology, [facility] [address] [place] [address] [facility] [address] [place] [address] Health Maintenance Due Date Last Done Comments [...] Documents on File Type Date Recorded Patient Subway Guard Expl anation POLST 12/20/2022 2:13 PM POLST (Rosen ited DNR) Care Teams Can Top Setter Relationship Specialty Start Date End Date Melissa Hand MD [address] [place] [address] [place] [phone] PCP - General Family Medicine 03/11/19 documented as of this encounter
--- OUTSIDE RECORDS SUMMARY | 2023-12-30 03:20 | External Medical Summary | Summary of Care ---
Author Name Unknown Organization [facility] Address [address] [facility] [place] [address] Phone [phone] Care Team Providers Care Chain Link Fence Installer Name Role Phone Melissa Hand MD Primary Care Prov ider Encounter Details Date Type Department Care Team (Late st Contact Info) Description 08/05/2023 9:30 AM EDT Home Visit Care Coordination and Integration 100 [address] [facility] [place] [phone] Alivia Campbell [facility] [address] [place] [address] Allergies Active Allergy [...] insulin ([facility]) Inject 0.75 mg under the skin once [...] (Prevnar) 03/10/2019 Pneumococcal Conjugate Vacci ne, 20-valent ([id number]) 09/19/2021 Pneumococcal Polysaccharide PPV23 (Pneumovax) 09/08/2015 Season [...] Progress Notes * Melissa Hand MD - 08/05/2023 3:22 PM EDT Please review RENE notes Can a nurse please call the family (Yousuf) to see if he thinks she just needs to be seen? It soundsto me that she needs a clinic appointment (acute, within 1-2 days). * Alivia Campbell, Community Health Bog Cutter - 08/05/2023 1:17 PM EDT Telemedicine visit: No Community Health Bog Cutter (RENE) documentation: CHW home visit for med review and safety assessment following DC from [facility] rehab. Per son - last month, patient lost balance and fell into table, resulting in head injury. Presented to [facility]. Head laceration stapled in ED, patient admitted to [facility]. Patient then transferred to [facility] to beunder the care of neurosurgery due to concern for cerebral edema. Son reports thoracentesis at [facility] - states provider elected this over diuresis d/t decreased kidney function. From there, patient admitted to [facility] for rehab. Son asking if records received from [facility] and [facility]. Son reports patient has experienced a [...] EDT Office Visit Hematology/Oncology [facility] [address] [place] [address] [phone] Blayne Caruso MD [address] [place] [place] [address] 08/28/2023 1:20 PM EDT Office Visit Dermatology [address] [place] [address] Gaby Pitt PA-C [address] [place] [address] [place] [address] 10/04/2023 9:45 AM EDT Imaging Radiology [address] [place] [address] 10/22/2023 8:20 AM EDT Office Visit Family Medicine [address] [place] [phone] Melissa Hand MD [address] [place] [address] [place] [address] 11/06/2023 11:15 AM EDT Office Visit Urology, [facility] 132 [facility] [place] [address] Zbigniew Holder MD [address] [address] [place] [address] 01/17/2024 10:00 AM EDT Office Visit Hepatology, [facility] 132 [facility] [place] [address] Jaclyn Jay MD [address] [place] [address] 01/24/2024 9:30 AM EDT Cardiac Studies Cardiology, [facility] 132 [facility] [place] [address] Natanael Cast [facility] 132 [facility] [place] [address] Health Maintenance Due Date Last Done Comments [...] 07/23/2024 07/24/2023, 07/07, 06/22/2023, Additional history exists Colonoscopy 09/13/2029 09/14/2019 [...] Documents on File Type Date Recorded Patient Police Magistrate Expl anation POLST 12/20/2022 2:13 PM POLST (Rosen ited DNR) Care Teams Chain Link Fence Installer Relationship Specialty Start Date End Date Melissa Hand MD [address] [place] [address] [place] [address] PCP - General Family Medicine 03/11/19 documented as of this encounter
--- OUTSIDE RECORDS SUMMARY | 2023-12-30 03:20 | External Medical Summary | Summary of Care ---
Author Name Unknown Organization [facility] Address [address] [facility] [address] Phone [phone] Care Team Providers Care Logistics Vice President Name Role Phone Melissa Hand MD Primary Care Prov ider Reason for Visit * Reason Comments eRx-Medication Refill Encounter Details Date Type Department Care Team (Late st Contact Info) Description 07/29/2023 Refill Family Medicine [address] [phone] Melissa Hand MD [address] [place] [address] [place] [address] Type 2 diabetes mellitus with stage 4 chronic kidney disease, with long-term current use of insulin ([facility]) Allergies Active Allergy Reactions Criticality Noted Date [...] call 911. 25 Tab 0 9 Active Lancets MISC Test 3 times daily E11.9 100 Each 5 0 Active OneTouch Delica Lancets 33G MISCIndications:D M (diabetes mellitus), type 2, uncontrolled, with renal complications Test 3 times daily. E11.9 100 Each 5 0 Active Vitamin D3 25 MCG (1000 UT) Oral Tablet (Vitamin D3) Take 1 Tablet by mouth in the morning. 0 1 Active Cranberry 50 MG Oral Tablet [...] dx e11.22 300 Strip 1 4 Active Glucose Blood (ONETOUCH VERIO) STRPIndications:D M (diabetes mellitus), type 2, uncontrolled, with renal complications Use 4 times a day E11.9 insulin dependent 120 Strip 5 0 07/31/19 24 Discontinued(Re fill) OneTouch Verio In Vitro Strip (Glucose Blood)Indications :Type 2 diabetes mellitus with stage 4 chronic kidney disease, with long-term current use of insulin (HCC) test blood sugar 3 times daily dxe11.22. is on insulin 100 Strip 5 2 07/31/19 24 Discontinued documented as of this encounter [...] (Prevnar) 03/10/2019 Pneumococcal Conjugate Vacci ne, 20-valent ([id number]) 09/19/2021 Pneumococcal Polysaccharide PPV23 (Pneumovax) 09/08/2015 Season [...] encounter Miscellaneous Notes * Telephone Encounter - Shaye Foster [facility] - 07/31/2023 10:59 AM EDT Signed Prescriptions: Disp Refills OneTouch Verio In Vitro Strip (Glucose Blo*[address] St*1 Sig: test blood sugar 3 times daily dx e11.22Authorizing Provider: MELISSA HAND User: SHAYE FOSTER documented in this encounter Plan of Treatment Upcoming Encounters Date Type Department Care Team (Late st Contact Info) Description 08/02/2023 3:00 PM EDT Office Visit Hepatology, [facility] 132 [facility] [place] [address] Jaclyn Jay MD [address] [place] [phone] 08/16/2023 1:15 PM EDT Office Visit [facility]ology[facility] [address] [place] [address] Blayne Caruso MD 200 [facility] [place] [address] 08/28/2023 1:20 PM EDT Office Visit Dermatology [address] [place] [address] Gaby Pitt PA-C [address] [place] [address] [place] [address] 10/04/2023 9:45 AM EDT Imaging Radiology [address] [place] [address] 10/22/2023 8:20 AM EDT Office Visit Family Medicine [address] [place] [phone] Melissa Hand MD [address] [place] [address] [place] [address] 11/06/2023 11:15 AM EDT Office Visit Urology, [facility] 132 [facility] [place] [address] Zbigniew Holder MD [address] [place] [address] 270 [place] [address] 01/24/2024 9:30 AM EDT Cardiac Studies Cardiology, [facility] 132 [facility] [place] [address] Natanael Cast [facility] 132 [facility] [place] [address] Health Maintenance Due Date Last Done Comments [...] with long-term current use of insulin (HCC) documented in this encounter Advance Directives Documents on File Type Date Recorded Patient Forensic Social Worker Expl anation POLST 12/20/2022 2:13 PM POLST (Rosen ited DNR) Care Teams Logistics Vice President Relationship Specialty Start Date End Date Melissa Hand MD [address] [place] [address] [place] [phone] PCP - General Family Medicine 03/11/19 documented as of this encounter
--- OUTSIDE RECORDS SUMMARY | 2023-12-30 03:20 | External Medical Summary | Summary of Care ---
Author Name Unknown Organization [facility] Address [address] [facility] [place] [address] Phone [phone] Care Team Providers Care Car Rental Sales Assistant Name Role Phone Melissa Hand MD Primary Care Prov ider Encounter Details Date Type Department Care Team (Late st Contact Info) Description 08/05/2023 9:30 AM EDT Home Visit Care Coordination and Integration 100 [address] [facility] [place] [phone] Alivia Campbell [facility] [address] [place] [address] Allergies Active Allergy [...] with long-term current use of insulin ([facility]) Inject 0.75 mg under [...] major depressive disorder, in full remission ([facility]) Take 1.5 Tablets by [...] with long-term current use of insulin ([facility]) test blood sugar 3 [...] (Prevnar) 03/10/2019 Pneumococcal Conjugate Vacci ne, 20-valent ([id number]) 09/19/2021 Pneumococcal Polysaccharide PPV23 (Pneumovax) 09/08/2015 Season [...] Notes * Isabelle Dorado LPN - 08/06/2023 9:00 [...] 1-2 days). * Alivia Campbell, Community Health Travel Agent - 08/05/2023 1:17 PM EDT Telemedicine visit: No Community Health Travel Agent (RENE) documentation: CHW home visit for med review and safety assessment following DC from [facility] rehab. Per son - last month, patient lost balance and fell into table, resulting in head injury. Presented to [facility]. Head laceration stapled in ED, patient admitted to [facility]. Patient then transferred to [facility] to beunder the care of neurosurgery due to concern for cerebral edema. Son reports [facility]esis at [facility] provider elected this over diuresis d/t decreased kidney function. From there, patient admitted to [facility] for rehab. Son asking if records received from [facility] and [facility]. Son reports patient has experienced a [...] lead to falls/balance issues as well. Alivia Adrian, Community Health Worker documented in this encounter Plan of Treatment Upcoming Encounters Date Type Department Care Team (Late st Contact Info) Description 08/16/2023 1:15 PM EDT Office Visit Hematology/Oncology [facility] [place] 200 [facility] [place] [phone] Blayne Caruso MD 200 [facility] [place] [address] 08/28/2023 1:20 PM EDT Office Visit Dermatology [address] [place] [address] Gaby Pitt PA-C [address] [place] [address] [place] [address] 10/04/2023 9:45 AM EDT Imaging Radiology [address] [place] [address] 10/22/2023 8:20 AM EDT Office Visit Family Medicine [address] [place] [phone] Melissa Hand MD [address] [place] [address] [place] [address] 11/06/2023 11:15 AM EDT Office Visit Urology, [facility] [address] Zbigniew Holder MD [address] [place] [address] [place] [address] 01/17/2024 10:00 AM EDT Office Visit Hepatology, [facility] 132 [facility] [place] [address] Jaclyn Jay MD [address] [place] [address] 01/24/2024 9:30 AM EDT Cardiac Studies Cardiology, [facility] [address] [place] [address] Mov[place], Pacer [facility] [address] [place] [address] Health Maintenance Due Date Last Done Comments [...] Documents on File Type Date Recorded Patient Trimming Machine Operator Expl anation POLST 12/20/2022 2:13 PM POLST (Rosen ited DNR) Care Teams Car Rental Sales Assistant Relationship Specialty Start Date End Date Melissa Hand MD [address] [place] [address] [place] [address] PCP - General Family Medicine 03/11/19 documented as of this encounter
--- OUTSIDE RECORDS SUMMARY | 2023-12-30 03:20 | External Medical Summary ---
Author Name Unknown Address Unknown Organization K09:[facility] [place] [address] Laboratory Report Ordering Provider Test Date Status MARKUS PARRA 07/24/2023 06:20:00 Final Observation Date Value Abnormality Reference (Units ) Status BUN 07/24/2023 06:20:00 84 Above high normal 6-20 (mg/dL) Final Creatinine 07/24/2023 06:20:00 1.8 Above high normal 0.5-1.0 (mg/dL) Final Glomerular filtration rate/1.73 sq M.predicted [Volume Rate/Area] in Serum, Plasma or Blood by Creatinine-based formula (CKD-EPI) 07/24/2023 06:20:00 29 Below low normal >=60 (mL/min) Final eGFR is calculated based on the CKD-EPI 2020 equation Sodium 07/24/2023 06:20:00 139 135-146 (m mol/L) Final Potassium 07/24/2023 06:20:00 4.9 3.5-5.1 (m mol/L) Final Cl 07/24/2023 06:20:00 103 98-107 (mm ol/L) Final CO2 07/24/2023 06:20:00 23 22-32 (mmo l/L) Final Anion gap 07/24/2023 06:20:00 13 7-15 (mmol /L) Final Glucose 07/24/2023 06:20:00 143 Above high normal 70 -120 (mg/dL) Final Calcium 07/24/2023 06:20:00 9.2 8.4-10.2 ( mg/dL) Final Performing Location [facility] [place] [address]
--- OUTSIDE RECORDS SUMMARY | 2023-12-30 03:20 | External Medical Summary ---
Author Name Unknown Address Unknown Organization K01:[facility] - [address] [facility] [address] [facility] [address] Laboratory Report Ordering Provider Test Date Status CLINTON FRANKLIN 07/31/2023 12:31:44 Final <10,000 colonies/ml mixed no rmal aneudy Observation Date Value Abnormality Reference (Units ) Status Bacteria identified in Specimen by Culture 07/31/2023 12:31:44 [id number]^ESCHE RICHIA COLI Abnormal Final >100,000 colonies/mL Escheri kate coli Performing Location [facility] - [address] [facility] [address] [facility] [address] Ordering Provider Test Date Status CLINTON FRANKLIN 07/31/2023 12:31:44 Final Observation Date Value Abnormality Reference (Units ) Status Ampicillin 07/31/2023 12:31:44 >=32 Resistant Final Ampicillin + Sulbactam 07/31/2023 12:31:44 16 Intermediate Final Cefazolin 07/31/2023 12:31:44 <=4 Susceptible Final Cefepime susceptibility 07/31/2023 12:31:44 <=1 Susceptible Final Ceftriaxone suceptibility 07/31/2023 12:31:44 <=1 Susceptible Final Ciprofloxacin 07/31/2023 12:31:44 <=0.25 Susceptible Final Due to serious side effects, the FDA has advised against using Ciprofloxacin to treat uncomplicated UTIs and respiratory tract infections unless there are no alternative treatment options. Gentamicin susceptibility 07/31/2023 12:31:44 <=1 Susc eptible Final Levofloxacin susceptibility 07/31/2023 12:31:44 <=0.12 Rodriguez sceptible Final Due to serious side effects, the FDA has advised against using Levofloxacin to treat uncomplicated UTIs and respiratory tract infections unless there are no alternative treatment options. Nitrofurantoin susceptibility 07/31/2023 12:31:44 <=16 Susceptible Final Piperacillin + Tazobactamsusceptibility 07/31/2023 12:31:44 <=4 Susceptible Final TMP-SMZ susceptibility 07/31/2023 12:31:44 >=320 Resista nt Final Test: Culture, Urine, Quanti tative
Specimen Source: Urine, Clean Catch
Specimen Type: Urine
Specimen Date: 07/31/2023 12:31 PM
Result Date: 08/03/2023 10:21 AM
Result Status: Final result
Abnormal: Yes
Resulting Lab: [facility]
[address]
[facility] [address]

CULTURE

>100,000 colonies/mL Escherichia coli (Abnormal)

<10,000 colonies/ml mixed normal aneudy

SUSCEPTIBILITY

Escherichia coli
METHOD MICROBROTH DILUTIONS

AMPICILLIN >=32 Resistant
AMPICILLIN/SULBACTAM 16 Intermediate
CEFAZOLIN <=4 Susceptible
CEFEPIME <=1 Susceptible
CEFTRIAXONE <=1 Susceptible
CIPROFLOXACIN <=0.25 Susceptible
GENTAMICIN <=1 Susceptible
LEVOFLOXACIN <=0.12 Susceptible
NITROFURANTOIN <=16 Susceptible
PIPERACILLIN TAZOBACTAM <=4 Susceptible
TRIMETH/SULFAMETHOXAZOLE >=320 Resistant

null Performing Location [facility] - [address] [facility] [address]
--- OUTSIDE RECORDS SUMMARY | 2023-12-30 03:20 | External Medical Summary | Summary of Care ---
Author Name Unknown Organization [facility] Address [address] [facility] [place] [address] Phone [phone] Care Team Providers Care Employee Benefits Coordinator Name Role Phone Melissa Hand MD Primary Care Prov ider Encounter Details Date Type Department Care Team (Late st Contact Info) Description 08/05/2023 9:30 AM EDT Home Visit Care Coordination and Integration 100 [address] [facility] [place] [phone] Alivia Campbell [facility] [address] [place] [address] Allergies Active Allergy [...] disease, with long-term current use of insulin ([facility]) Inject 0.75 mg under the [...] Recurrent major depressive disorder, in full remission ([facility]) Take 1.5 Tablets by mouth [...] disease, with long-term current use of insulin ([facility]) test blood sugar 3 times [...] (Prevnar) 03/10/2019 Pneumococcal Conjugate Vacci ne, 20-valent ([id number]) 09/19/2021 Pneumococcal Polysaccharide PPV23 (Pneumovax) 09/08/2015 Season [...] 1-2 days). * Alivia Campbell, Community Health Aviation Operations Specialist - 08/05/2023 1:17 PM EDT Telemedicine visit: No Community Health Aviation Operations Specialist (RENE) documentation: CHW home visit for med review and safety assessment following DC from [facility] rehab. Per son - last month, patient lost balance and fell into table, resulting in head injury. Presented to [facility]. Head laceration stapled in ED, patient admitted to [facility]. [facility] of neurosurgery due to concern for cerebral edema. Son reports thoracentesis at [facility] provider elected this over diuresis d/t decreased kidney function. From there, patient admitted to [facility] for rehab. Son asking if records received from [facility] and [facility]. Son reports patient has experienced a [...] as well. Alivia Adrian, Community Health Worker Electronically signed by Alivia Campbell Community Health Aviation Operations Specialist at 08/05/2023 1:39 PM EDT documented in this encounter Plan of Treatment Upcoming Encounters Date Type Department Care Team (Late st Contact Info) Description 08/16/2023 1:15 PM EDT Office Visit Hematology/Oncology [facility] [place] [facility] [place] [phone] Blayne Caruso MD 200 [facility] [place] [address] 08/28/2023 1:20 PM EDT Office Visit Dermatology [address] [place] [address] Gaby Pitt PA-C [address] [place] [address] [place] [address] 10/04/2023 9:45 AM EDT Imaging Radiology [address] [place] [address] 10/22/2023 8:20 AM EDT Office Visit Family Medicine [address] [place] [phone] Melissa Hand MD [address] [place] [address] [place] [address] 11/06/2023 11:15 AM EDT [facility] [address] Zbigniew Holder MD [address] [place] [address] [place] [address] 01/17/2024 10:00 AM EDT Office Visit Hep[facility], [facility] 132 [facility] [place] [address] Jaclyn Jay MD [address] [place] [address] 01/24/2024 9:30 AM EDT Cardiac Studies Cardiology, [facility] [address] [place] [address] Movall, Pacer [facility] [address] [place] [address] Health Maintenance Due Date Last Done Comments [...] Documents on File Type Date Recorded 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
--- OUTSIDE RECORDS SUMMARY | 2023-12-30 03:20 | External Medical Summary | Summary of Care ---
Author Name Unknown Organization [facility] Address [address] [place] [address] Phone [phone] Care Team Providers Care Sales And Merchandising Representative Name Role Phone Melissa Hand MD Primary Care Prov ider Reason for Visit * Reason Onset Date Comments case management 08/05/2023 Advice 08/05/2023 Encounter Details Date Type Department Care Team (Late st Contact Info) Description 08/05/2023 Telephone Care Coordination and Integration [address], [place] [phone] Adelaide Sabillon RN [address], [place] [phone] case management; Advice Allergies Active Allergy Reactions Criticality Noted [...] long-term current use of insulin ([facility]) Inject 0.75 mg under the skin [...] long-term current use of insulin ([facility]) test blood sugar 3 times daily [...] (Prevnar) 03/10/2019 Pneumococcal Conjugate Vacci ne, 20-valent ([id number]) 09/19/2021 Pneumococcal Polysaccharide PPV23 (Pneumovax) 09/08/2015 Season [...] encounter Miscellaneous Notes * Telephone Encounter - Adelaide Sabillon RN - 08/05/2023 3:19 PM EDT Son, Yousuf, notified. He will tile picker and start. Thank you. Reports he had been giving her some Bactrim he had at the house. Informed him the culture came back resistant to the Bactrim. He will discontinue and start the cefdinir. * Telephone Encounter - Melissa Hand MD - 08/05/2023 12:26 PM EDT Rx cefdinir sent to [facility]. Renally dosed. Please let them know. * Telephone Encounter - Adelaide Sabillon RN - 08/05/2023 11:48 AM EDT Son waiting for direction related to urinary issues. Chart reviewed: Urine testing done 07/31/23 Culture Growth >100,000 colonies/mL Escherichia coli Abnormal <10,000 colonies/ml mixed normal aneudy Resulting Agency: Susceptibility Escherichia coli [facility] Ampicillin Resistant Ampicillin/Sulbactam Intermediate Cefazolin Susceptible Cefepime Susceptible Ceftriaxone Susceptible Ciprofloxacin Susceptible 1 Gentamicin Susceptible Levofloxacin Susceptible 2 Nitrofurantoin Susceptible Piperacillin Tazobactam Susceptible Trimeth/Sulfamethoxazole Resistant Prescription he had on hand from Dr Holder, for cefdinir, is . Please advise................. sending encounter to PCP and Dr Holder. documented in this encounter Plan of Treatment Upcoming Encounters Date Type Department Care Team (Late st Contact Info) Description 08/16/2023 1:15 PM EDT Office Visit Hematology/Oncology [facility] [address] [facility] [place] [phone] Blayne Caruso MD [address] [facility] [place] [address] 08/28/2023 1:20 PM EDT Office Visit Dermatology [address] [place] [address] Gaby Pitt PA-C [address] [place] [address] [place] [address] 10/04/2023 9:45 AM EDT Imaging Radiology [address] [place] [address] 10/22/2023 8:20 AM EDT Office Visit Family Medicine [address] [place] [phone] Melissa Hand MD [address] [place] [address] [place] [address] 11/06/2023 11:15 AM EDT Office Visit Urology, [facility] [address] [facility] [place] [address] Zbigniew Holder MD [address] [place] [address] 01/17/2024 10:00 AM EDT Office Visit Hepatology, [facility] [address] [facility] [place] [address] Jaclyn Jay MD [address] [place] [address] 01/24/2024 9:30 AM EDT Cardiac Studies Cardiology, [facility] [address] [facility] [place] [address] Natanael Cast [facility] [address] [facility] [place] [address] Health Maintenance Due Date Last Done Comments [...] Documents on File Type Date Recorded 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
--- OUTSIDE RECORDS SUMMARY | 2023-12-30 03:20 | External Medical Summary | Summary of Care ---
Author Name Unknown Organization [facility] Address [address] [facility] [place] [address] Phone [phone] Care Team Providers Care Steam Train Driver Name Role Phone Melissa Hand MD Primary Care Prov ider Encounter Details Date Type Department Care Team (Late st Contact Info) Description 08/05/2023 9:30 AM EDT Home Visit Care Coordination and Integration [address] [facility] [place] [phone] Alivia Campbell [facility] [address] [place] [address] Allergies Active Allergy [...] (Prevnar) 03/10/2019 Pneumococcal Conjugate Vacci ne, 20-valent ([id number]) 09/19/2021 Pneumococcal Polysaccharide PPV23 (Pneumovax) 09/08/2015 Season [...] Progress Notes * Alivia Campbell, [facility] - 08/05/2023 1:17 PM EDT Telemedicine visit: No [facility] ([facility]) documentation: [facility] home visit for med review and safety assessment following DC from [facility] rehab. Per son - last month, patient lost balance and fell into table, resulting in head injury. Presented to [facility]. Head laceration stapled in ED, patient admitted to [facility]. Patient then transferred to [facility] to beunder the care of neurosurgery due to concern for cerebral edema. Son reports thoracentesis at [facility] - states provider elected this over diuresis d/t decreased kidney function. From there, patient admitted to [facility] for rehab. Son asking if records received from [facility] and [facility]. Son reports patient has experienced a [...] 08/16/2023 1:15 PM EDT Office Visit Hematology/Oncology [facility] [address] [place] [phone] Blayne Caruso MD 200 [facility] [place] [address] 08/28/2023 1:20 PM EDT Office Visit Dermatology [address] [place] [address] Gaby Pitt PA-C [address] [place] [address] [place] [address] 10/04/2023 9:45 AM EDT Imaging Radiology [address] [place] [address] 10/22/2023 8:20 AM EDT Office Visit Family Medicine [address] [place] [phone] Melissa Hand MD [address] [place] [address] [place] [address] 11/06/2023 11:15 AM EDT Office Visit Urology, [facility] [place] [address] Zbigniew Holder MD [address] [place] [address] 01/17/2024 10:00 AM EDT Office Visit Hepatology, [facility] 132 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
--- OUTSIDE RECORDS SUMMARY | 2023-12-30 03:20 | External Medical Summary ---
Author Name Unknown Address Unknown Organization K[facility] [place] [address] Laboratory Report Ordering Provider Test Date Status MARKUS PARRA 07/24/2023 06:20:00 Final Observation Date Value Abnormality Reference (Units ) Status WBC, Total 07/24/2023 06:20:00 2.02 Below low normal 4. 00-10.80 (K/uL) Final RBC 07/24/2023 06:20:00 3.25 3.85-5.15 (M/uL) Final Hemoglobin 07/24/2023 06:20:00 10.6 Below low normal 12 .0-15.3 (g/dL) Final HCT 07/24/2023 06:20:00 33.6 Below low normal 36. 0-45.2 (%) Final MCV 07/24/2023 06:20:00 103.4 81.5-97.5 (fL) Final MCH 07/24/2023 06:20:00 32.6 27.0-34.0 (pg) Final MCHC 07/24/2023 06:20:00 31.5 32.0-36.0 (g/dL) Final RDW 07/24/2023 06:20:00 14.9 11.5-15.5 (%) Final Platelets 07/24/2023 06:20:00 110 Below low normal 140 -400 (K/uL) Final MPV 07/24/2023 06:20:00 10.7 6.6-11.1 ( fL) Final Performing Location [facility] [address]
--- OUTSIDE RECORDS SUMMARY | 2023-12-30 03:21 | External Medical Summary | Summary of Care ---
Author Name Unknown Organization [facility] Address [address] [place] [address] Phone [phone] Care Team Providers Care Bakery Sales Clerk Name Role Phone Melissa Hand MD Primary Care Prov ider Reason for Visit * Reason Onset Date Comments case management 05/21/2023 Encounter Details Date Type Department Care Team (Late st Contact Info) Description 05/21/2023 Telephone Care Coordination and Integration [address] [place] [address] Adelaide Sabillon, RN [address] [place] [address] case management Allergies Active Allergy Reactions Criticality Noted Date Comments Lisinopril Cough Low 04/25/2020 High potassium documented as of this encounter (statuses as of 07/22/2023) Medications Medication Sig Dispensed Refills Start Date [...] long-term current use of insulin ([facility]) test blood sugar 3 times daily dxe11.22. [...] EVERY DAY 90 Capsule 1 03/18/2023 Active Rosuvastatin Calcium 10 MG Oral Tablet (Crestor) Take 1 Tablet by mouth in the morning. 90 Tablet 0 04/10/2023 Active Basaglar KwikPen 100 UNIT/ML Subcutaneous Solution [...] EVERY DAY 90 Tablet 3 05/18/2023 Active documented as of this encounter (statuses as of 07/22/2023) Active Problems Problem Noted Date Diagnosed Date [...] as of this encounter (statuses as of 07/22/2023) Resolved Problems Problem Noted Date Diagnosed Date [...] as of this encounter (statuses as of 07/22/2023) Immunizations Name Administration Dates Next Due Influenza, Whole Virus 01/16/2013,04/20/2011 Pneumococcal Conjugate Vacc, 13 Valent (Prevnar) 03/10/2019 Pneumococcal Conjugate Vacci ne, 20-valent ([id number]) 09/19/2021 Pneumococcal Polysaccharide PPV23 (Pneumovax) 09/08/2015 Season [...] Telephone Encounter - Adelaide Sabillon RN - 05/21/2023 10:15 AM EST Please discharge the patient from [facility] Device(s)/IVR to be discontinued: Discontinue [facility] scales 05/21/23, due to no longer needed. Thank you. documented in this encounter Plan of Treatment Upcoming Encounters Date Type Department Care Team (Late st Contact Info) Description 08/02/2023 3:00 PM EDT Office Visit Hepatology, [facility] [address] [facility] [place] [address] Jaclyn Jay MD [address] [place] [address] 08/16/2023 1:15 PM EDT Office Visit Hematology/Oncology [facility] [address] [place] [phone] Blayne Caruso MD [address] [place] [address] 08/28/2023 1:20 PM EDT Office Visit Dermatology [address] [place] [address] Gaby Pitt PA-C [address] [place] [address] [place] [address] 10/04/2023 9:45 AM EDT Imaging Radiology [address] [place] [address] 10/22/2023 8:20 AM EDT Office Visit Family Medicine [address] [place] [phone] Melissa Hand MD [address] [place] [address] [place] [address] 11/06/2023 11:15 AM EDT Office Visit Urology, [facility] [address] [place] [address] Zbigniew Holder MD 27 [facility] [address] [place] [address] 01/24/2024 9:30 AM EDT Cardiac Studies Cardiology, [facility] [address] [place] [address] [place] [address] [place] [address] Health Maintenance Due Date Last Done Comments Hgb 06[birth year]20[birth year]1967 Cologuard 1994 Sigmoidoscopy 1994 Hepatitis B (1 [...] 023, 11/08/2022, 08/10/2022, Additional history exists GFR 01/16/2024 07/17/2023, 03/0 11/2023, 01/29/2023, Additional history exists PTH 06/21/2024 06/22/2023, 03/0 05/2022, 02/22/2022, Additional history exists Colonoscopy 09/13/2029 09/14/2019 Colorectal [...] Documents on File Type Date Recorded Patient Field Agronomist Expl anation POLST 12/20/2022 2:13 PM POLST (Rosen ited DNR) Care Teams Bakery Sales Clerk Relationship Specialty Start Date End Date Melissa Hand MD [address] [place] [address] [place] [phone] PCP - General Family Medicine 03/11/19 documented as of this encounter
--- OUTSIDE RECORDS SUMMARY | 2023-12-30 03:21 | External Medical Summary ---
Author Name Unknown Address Unknown Organization [facility] [place] [address] Laboratory Report Ordering Provider Test Date Status JAY VILLALTA 07/17/2023 14:26:31 Final Observation Date Value Abnormality Reference (Units ) Status WBC, Total 07/17/2023 14:26:31 2.02 Below low normal 4. 00-10.80 (K/uL) Final RBC 07/17/2023 14:26:31 3.38 3.85-5.15 (M/uL) Final Hemoglobin 07/17/2023 14:26:31 11.0 Below low normal 12 .0-15.3 (g/dL) Final HCT 07/17/2023 14:26:31 35.2 Below low normal 36. 0-45.2 (%) Final MCV 07/17/2023 14:26:31 104.1 81.5-97.5 (fL) Final MCH 07/17/2023 14:26:31 32.5 27.0-34.0 (pg) Final MCHC 07/17/2023 14:26:31 31.3 32.0-36.0 (g/dL) Final RDW 07/17/2023 14:26:31 15.3 11.5-15.5 (%) Final Platelets 07/17/2023 14:26:31 66 Below low normal 140 -400 (K/uL) Final MPV 07/17/2023 14:26:31 10.7 6.6-11.1 ( fL) Final Performing Location [facility] [place] [address]
--- OUTSIDE RECORDS SUMMARY | 2023-12-30 03:21 | External Medical Summary ---
Author Name Unknown Address Unknown Organization [facility] [place] [address] Laboratory Report Ordering Provider Test Date Status JAY VILLALTA 07/17/2023 14:31:01 Final Observation Date Value Abnormality Reference (Units ) Status BUN 07/17/2023 14:31:01 67 Above high normal 6-20 (mg/dL) Final Creatinine 07/17/2023 14:31:01 1.8 Above high normal 0.5-1.0 (mg/dL) Final Glomerular filtration rate/1.73 sq M.predicted [Volume Rate/Area] in Serum, Plasma or Blood by Creatinine-based formula (CKD-EPI) 07/17/2023 14:31:01 29 Below low normal >=60 (mL/min) Final eGFR is calculated based on the CKD-EPI 2020 equation Sodium 07/17/2023 14:31:01 136 135-146 (m mol/L) Final Potassium 07/17/2023 14:31:01 4.2 3.5-5.1 (m mol/L) Final Cl 07/17/2023 14:31:01 100 98-107 (mm ol/L) Final CO2 07/17/2023 14:31:01 24 22-32 (mmo l/L) Final Anion gap 07/17/2023 14:31:01 12 7-15 (mmol /L) Final Glucose 07/17/2023 14:31:01 325 Above high normal 70 -120 (mg/dL) Final Calcium 07/17/2023 14:31:01 8.7 8.4-10.2 ( mg/dL) Final Performing Location [facility] [place] [address]
[2023-12-30 03:50] LABS: Basophils # (auto) 0.01 K/uL (0.00-0.20); Basophils % (auto) 0.1 %; Hematocrit (blood only) 29.7 % (37.0-47.0); Hemoglobin 9.7 g/dl (12.0-16.0); Immature Granulocytes # (auto) 0.12 K/uL (0.01-0.20); Immature Granulocytes % (auto) 1.2 %; Lymphocytes % (auto) 4.9 %; Mean Corpuscular Hemoglobin 32.8 pg (25.0-34.0); Mean Corpuscular Hgb Conc 32.7 g/dL (32.0-36.0); Mean Corpuscular Volume 100.3 fL (80.0-100.0); Mean Platelet Volume 11.7 fL (9.4-12.4); Monocytes # (auto) 1.06 K/uL (0.11-0.59); Monocytes % (auto) 10.3 %; Neutrophils # (auto) 8.56 K/uL (1.40-6.50); Neutrophils % (auto) 83.5 %; Platelet Count 66 K/uL (130-400); RDW Coefficient of Variation 16.6 % (11.5-14.5); RDW Standard Deviation 61.5 fL (36.4-46.3); Red Blood Count 2.96 M/uL (4.20-5.40); White Blood Count 10.25 K/ul (4.8-10.8)
--- NOTE | 2023-12-30 04:18 | Emergency Department Note ---
ED Visit Note I was consulted by the Advanced Practice Provider. I personally made/approved the management plan and take responsibility for the patient management. I performed a substantive portion of the visit. This includes the aspects of: Personally seeing the patient -MDM .
--- NOTE | 2023-12-30 04:35 | Emergency Department Note ---
History of Present Illness General Chief complaint: Vomiting Stated complaint: VOMITING,STOMACH AND BACK PAIN Time Seen by Provider: 12/30/23 03:19 History of Present Illness This is a 73-year-old female presenting to the emergency department from home accompanied by her son. Patient has a history of dementia as well as several other medical conditions. Patient lives with son and daughter who are primary caregivers and state the patient has had a significant change in the past few days. Patient has had several episodes of vomiting. She typically is able to answer most questions and ambulate with a walker. The patient does not have any strength, and is very weak. No distinct fevers reported. She is not eating well. Patient has had symptoms like this in the past and required rehab hospital stays. Home Medications Medication Instructions Recorded Confirmed Type aspirin 81 mg tablet,delayed 81 mg PO DAILY 12/24/22 12/30/23 History release gabapentin 100 mg capsule 100 mg PO HS 12/24/22 12/30/23 History insulin glargine 100 unit/mL (3 15 unit subcut HS 12/24/22 12/30/23 History mL) subcutaneous pen (Basaglar KwikPen U-100 Insulin) sertraline 100 mg tablet 150 mg PO HS 12/24/22 12/30/23 History isosorbide dinitrate 10 mg tablet 10 mg PO BID@0700,1200 30 days #60 12/29/22 12/30/23 Rx tabs acetaminophen 325 mg tablet 650 mg PO Q4H PRN Pain 07/05/23 12/30/23 History (Tylenol) alprazolam 0.25 mg tablet 0.25 mg PO DAILY PRN Anxiety 07/05/23 12/30/23 History cholecalciferol (vitamin D3) 25 25 mcg PO DAILY 07/05/23 12/30/23 History mcg (1,000 unit) capsule (Vitamin D3) cranberry 500 mg capsule 500 mg PO DAILY 07/05/23 12/30/23 History dulaglutide 0.75 mg/0.5 mL 0.75 mg subcut WK 07/05/23 12/30/23 History subcutaneous pen injector (Trulicity) ketoconazole 2 % shampoo 1 ea topical DIRECTED PRN OPEN 07/05/23 12/30/23 History SORES ON HEAD, UNTIL HEALED ketoconazole 2 % topical cream 1 applic topical BID PRN FACIAL 07/05/23 12/30/23 History RASH WHEN FLARES nitroglycerin 0.4 mg sublingual 0.4 mg sublingual DIRECTED PRN 07/05/23 12/30/23 History tablet (Nitrostat) Chest Pain rosuvastatin 10 mg tablet 10 mg PO QAM 07/05/23 12/30/23 History torsemide 10 mg tablet 20 mg PO QAM 07/05/23 12/30/23 History metoprolol succinate 50 mg 50 mg PO BID 12/30/23 12/30/23 History tablet,extended release 24 hr mirtazapine 15 mg tablet 15 mg PO HS 12/30/23 12/30/23 History Allergies Allergy/AdvReac Type Severity Reaction Status Date / Time lisinopril AdvReac Intermediate Cough Verified 07/05/23 15:09 Past Med/Surg History Problem List (Updated 12/30/23 @ 22:41 by Jonah Styles PA-C) ARF (acute renal failure) (Acute) Thrombocytopenia (Acute) Acute exacerbation of congestive heart failure (Acute) Hypoxia (Acute) Recurrent UTI Cystocele UTI (urinary tract infection) Weakness (Acute) CHF (congestive heart failure) (Acute) SOB (shortness of breath) (Acute) Pedal edema (Acute) Pancytopenia (Acute) Acute on chronic systolic CHF (congestive heart failure) Acute UTI (Acute) Weakness (Acute) Contusion of hip (Acute) Ambulatory dysfunction (Acute) Weakness (Acute) Acute UTI (Acute) Falls frequently (Acute) Sensorineural hearing loss (SNHL) of both ears Encounter for pre-operative examination Arthritis (Chronic) Hypertension (Chronic) Ischemic cardiomyopathy (Chronic) Hypoxia (Acute) Elevated troponin (Acute) Pleural effusion (Acute) CKD (chronic kidney disease) (Acute) Elevated troponin I level Acute worsening of stage 4 chronic kidney disease DVT prophylaxis Thrombocytopenia (Acute) CHF (congestive heart failure) Chronic HFrEF (heart failure with reduced ejection fraction) AICD (automatic cardioverter/defibrillator) present (Chronic) 2017--meditronic @ [facility] Moderate mitral regurgitation (Chronic) Aortic stenosis (Chronic) Chronic systolic heart failure (Chronic) DM II (diabetes mellitus, type II), controlled (Chronic) GERD (gastroesophageal reflux disease) (Chronic) Anxiety and depression (Chronic) Anemia (Chronic) Hyperkalemia (Chronic) Hyperlipidemia LDL goal <70 (Chronic) Medical History Chronic renal disease, stage IV Pancytopenia Dementia Hypertension Surgical History History of open reduction and internal fixation (ORIF) procedure ankle fx---hardware in place History of bilateral cataract extraction History of tubal ligation History of appendectomy Status post cholecystectomy Family History Mother Family history of diabetes mellitus Brother Family history of diabetes mellitus Sister Family history of diabetes mellitus Other No family history of adverse response to anesthesia Social History Smoking Status: Unknown if ever smoked Second Hand Exposure: No; Do You Dip or Chew Tobacco: No; Tobacco Cessation Education Requested by Patient: No Hx Alcohol Use: No Hx Substance Use: No Preferred Language: Faroese Communication Ability: Effective Review Rn Required: No Beliefs That Will Affect Care: None marital status: / Current Living Situation: Family Current Living Situation Comment: with daughter How many Children do You have: 3 Other Information That Helps Us Care for You: No Feels Safe at Home: Yes Safety Concerns: Feels Safe At This Time Assistive Devices: None Review of Systems A total of 10 systems reviewed and were otherwise negative (History and ROS primarily provided by son who is at bedside) Physical Exam Vital Signs Vital Signs - 24 hr 12/30/23 03:12 12/30/23 03:24 12/30/23 04:24 Temperature 36.7 C Temperature Source Temporal Artery Scan Pulse Rate 96 H 92 H Pulse Rate from SpO2 Sensor Pulse Rhythm Regular Respiratory Rate 22 Respiratory Effort / Characteristics Non-Labored Spontaneous Respiratory Depth Normal Respiratory Pattern Regular Blood Pressure 130/75 Blood Pressure Mean 93 Pulse Oximetry 98 Oxygen Delivery Method Room Air Sepsis Recent Fever Within 48 Hours No Sepsis New/Unexplained Change in Mental Status No Sepsis Action Taken by Nursing No Action Required 12/30/23 04:30 12/30/23 05:00 12/30/23 05:30 Temperature Temperature Source Pulse Rate 87 90 82 Pulse Rate from SpO2 Sensor Pulse Rhythm Respiratory Rate 20 24 20 Respiratory Effort / Characteristics Respiratory Depth Respiratory Pattern Blood Pressure 110/70 110/67 127/93 Blood Pressure Mean 77 97 109 Pulse Oximetry 97 96 95 Oxygen Delivery Method Sepsis Recent Fever Within 48 Hours Sepsis New/Unexplained Change in Mental Status Sepsis Action Taken by Nursing 12/30/23 06:00 12/30/23 08:44 Temperature Temperature Source Pulse Rate 87 78 Pulse Rate from SpO2 Sensor 86 Pulse Rhythm Respiratory Rate 21 Respiratory Effort / Characteristics Respiratory Depth Respiratory Pattern Blood Pressure 132/77 Blood Pressure Mean 95 Pulse Oximetry 94 Oxygen Delivery Method Sepsis Recent Fever Within 48 Hours Sepsis New/Unexplained Change in Mental Status Sepsis Action Taken by Nursing VITALS: Vitals are noted on the nurse's note and reviewed by myself. Vital signs stable. GENERAL: Elderly white female who is pleasantly demented. She is not answering questions, but does not appear in any distress. HEAD: Normocephalic atraumatic. HEART: Regular rate and rhythm without murmurs gallops or rubs. LUNGS: Bibasilar crackles noted ABDOMEN: Positive normal bowel sounds x 4. Soft, nontender, without masses or organomegaly. No guarding or rebound tenderness. MUSCULOSKELETAL: No muscle atrophy, erythema, or edema noted. Course Administered Medications Acetaminophen (Acetaminophen 325 Mg Tab) 650 mg PO QID PRN PRN Reason: pain/fever Stop: 01/29/24 06:27 Last Admin: 12/30/23 20:30 Dose: 650 mg Documented By: SELENE Ampicillin Sodium/Sulbactam Sodium (Unasyn) 3,000 mg in 100 mls @ 200 mls/hr IV Q12H [facility] Stop: 01/06/24 19:59 Last Infusion: 12/30/23 21:57 Dose: Infused Documented By: Admin: 12/30/23 20:30 Dose: 200 mls/hr Documented By: SELENE Sodium Chloride (Nss) 1,000 mls @ 60 mls/hr IV .[id number] ONE Stop: 12/31/23 14:58 Last Admin: 12/30/23 23:08 Dose: 60 mls/hr Documented By: SELENE Insulin Aspart (Insulin Aspart Per Unit Charge) 0 units SC ACHS [facility] Stop: 01/29/24 07:29 Last Admin: 12/30/23 20:51 Dose: Not Given Documented By: Admin: 12/30/23 18:02 Dose: Not Given Documented By: FRANCISCO Co-signed By: DAGO Isosorbide Dinitrate (Isosorbide Dinitrate 5 Mg Tab) 10 mg PO BID@0700,1200 TED Stop: 01/29/24 11:59 Last Admin: 12/30/23 12:51 Dose: 10 mg Documented By: GOOD Lidocaine (Lidocaine 5% 1 Patch) 1 patch TD HS TED Stop: 01/29/24 22:19 Last Admin: 12/30/23 23:02 Dose: 1 patch Documented By: SELENE Miscellaneous (Carbohydrates For Hypoglycemia ) 15 - 30 gm PO UD PRN PRN Reason: Hypoglycemia Protocol Stop: 01/29/24 06:23 Last Admin: 12/30/23 17:15 Dose: 15 gm Documented By: Admin: 12/30/23 17:00 Dose: 15 gm Documented By: FRANCISCO Rosuvastatin Calcium (Rosuvastatin Calcium 10 Mg Tab) 10 mg PO QAM TED Stop: 01/29/24 09:29 Last Admin: 12/30/23 10:35 Dose: 10 mg Documented By: GOOD Sertraline HCl (Sertraline Hcl 100 Mg Tablet) 100 mg PO [facility] Stop: 01/29/24 20:59 Last Admin: 12/30/23 20:31 Dose: 100 mg Documented By: SELENE Tramadol HCl (Tramadol Hcl 50 Mg Tablet) 25 mg PO Q4H PRN PRN Reason: Pain Stop: 01/29/24 22:19 Last Admin: 12/30/23 23:07 Dose: 25 mg Documented By: SELENE Discontinued Medications Sodium Chloride (Nss) 1,000 mls @ 60 mls/hr IV .[id number] STA Stop: 12/30/23 22:15 Last Infusion: 12/30/23 22:22 Dose: Infused Documented By: Infusion: 12/30/23 22:22 Dose: 0 mls/hr Documented By: Admin: 12/30/23 06:48 Dose: 60 mls/hr Documented By: GIO Ampicillin Sodium/Sulbactam Sodium (Unasyn) 3,000 mg in 100 mls @ 200 mls/hr IV NOW STA Stop: 12/30/23 06:50 Last Infusion: 12/30/23 07:15 Dose: Infused Documented By: Admin: 12/30/23 06:48 Dose: 200 mls/hr Documented By: GIO Acetaminophen (Ofirmev) 1,000 mg in 100 mls @ 400 mls/hr IV NOW STA Stop: 12/30/23 06:33 Last Infusion: 12/30/23 07:15 Dose: Infused Documented By: Admin: 12/30/23 06:49 Dose: 400 mls/hr Documented By: GIO Insulin Aspart (Insulin Aspart Per Unit Charge) 0 units SC Q6 TED Stop: 01/29/24 07:29 Last Admin: 12/30/23 12:58 Dose: 3 units Documented By: GOOD Co-signed By: STEVEN Admin: 12/30/23 10:10 Dose: 6 units Documented By: GOOD Co-signed By: STEVEN Insulin Glargine (Lantus Per Unit Charge) 5 units SQ DAILY TED Stop: 01/29/24 08:59 Last Admin: 12/30/23 10:13 Dose: 5 units Documented By: GOOD Co-signed By: STEVEN Admin: 12/30/23 10:11 Dose: 5 units Documented By: GOOD Co-signed By: STEVEN Insulin Human Regular (Novolin-R Insulin Per Unit Charge) 5 units IV NOW STA Stop: 12/30/23 05:37 Last Admin: 12/30/23 06:25 Dose: 5 units Documented By: GIO Co-signed By: PHILLIP Miscellaneous (Patient's Height &/Or Weight Needed) 1 each N/A NOW STA Stop: 12/30/23 06:20 Last Admin: 12/30/23 06:53 Dose: 1 each Documented By: GIO Sodium Bicarbonate (Sodium Bicarb 8.4% Inj 50 Meq/50 Ml Syr) 50 meq IV NOW STA Stop: 12/30/23 05:36 Last Admin: 12/30/23 06:20 Dose: 50 meq Documented By: GIO Medical Decision Making Differential Diagnosis Differential diagnosis includes, but is not limited to: Sepsis, infection, electrolyte or metabolic abnormality, UTI, stroke, worsening dementia, and others Laboratory Data 12/30/23 03:35 12/30/23 14:05 Lab Results 12/30/23 12/30/23 12/30/23 Range/Units 03:35 03:38 04:20 WBC 10.25 (4.8-10.8) K/ul RBC 2.96 L (4.20-5.40) M/uL Hgb 9.7 L (12.0-16.0) g/dl Hct 29.7 L (37.0-47.0) % MCV 100.3 H (80.0-100.0) fL MCH 32.8 (25.0-34.0) pg MCHC 32.7 (32.0-36.0) g/dL RDW Std Deviation 61.5 H (36.4-46.3) fL RDW Coeff of Nevaeh 16.6 H (11.5-14.5) % Plt Count 66 L (130-400) K/uL MPV 11.7 (9.4-12.4) fL Immature Gran % (Auto) 1.2 % Neut % (Auto) 83.5 % Lymph % (Auto) 4.9 % Brewster % (Auto) 10.3 % Eos % (Auto) 0.0 % Baso % (Auto) 0.1 % Neut # (Auto) 8.56 H (1.40-6.50) K/uL Lymph # (Auto) 0.50 L (1.20-3.40) K/uL Brewster # (Auto) 1.06 H (0.11-0.59) K/uL Eos # (Auto) 0.00 (0.00-0.50) K/uL Baso # (Auto) 0.01 (0.00-0.20) K/uL Immature Gran # (Auto) 0.12 (0.01-0.20) K/uL Sodium 132 L (136-145) mmol/L Potassium 5.2 H (3.5-5.1) mmol/L Chloride 93 L (98-107) mmol/L Carbon Dioxide 26 (21-32) mmol/L Anion Gap 13 H (3-11) BUN 97 H (6-23) mg/dl Creatinine 2.56 H (0.6-1.2) mg/dl Est Cr Clr Drug Dosing Not Reportable Est GFR ( Amer) 20.6 ml/min Est GFR (Non-Af Amer) 17.8 ml/min BUN/Creatinine Ratio 37.9 H (10-20) Glucose 329 H* (70-99(Fasting)) mg/dl POC Glucose (70-99) mg/dl Lactate Cancelled Calcium 9.6 (8.6-10.3) mg/dl Magnesium 2.1 (1.7-2.4) mg/dl Total Bilirubin 2.3 H (0.2-1.0) mg/dl AST 129 H (13-39) U/L ALT 91 H (7-52) U/L Alkaline Phosphatase 115 H (34-104) U/L Ammonia 20.0 (18-72) umol/L Total Creatine Kinase 61 (26-192) U/L Troponin I High Sens 63.0 H* (0-14) pg/ml B-Natriuretic Peptide > 4700 H (0-100) pg/ml Total Protein 8.9 H (6.0-8.3) gm/dl Albumin 4.3 (3.4-5.0) gm/dl Globulin 4.6 H (2.5-4.0) gm/dl Albumin/Globulin Ratio 0.9 (0.9-2) Lipase 139 H (11-82) U/L Adenovirus (PCR) Not Detected (NotDetected) B. pertussis DNA (PCR) Not Detected (NotDetected) B.parapertussis DNA PCR Not Detected (NotDetected) C. pneumoniae DNA (PCR) Not Detected (NotDetected) Coronavirus OC43 (PCR) Not Detected (NotDetected) Coronavirus HKU1 (PCR) Not Detected (NotDetected) Coronavirus 229E (PCR) Not Detected (NotDetected) SARS-CoV-2 (PCR) Not Detected (NotDetected) Coronavirus NL63 (PCR) Not Detected (NotDetected) Human Metapneumovir PCR Not Detected (NotDetected) Influenza Type A (PCR) Not Detected (NotDetected) Influenza Type B (PCR) Not Detected (NotDetected) M. pneumoniae (PCR) Not Detected (NotDetected) Parainfluenza 1 (PCR) Not Detected (NotDetected) Parainfluenza 2 (PCR) Not Detected (NotDetected) Parainfluenza 3 (PCR) Not Detected (NotDetected) Parainfluenza 4 (PCR) Not Detected (NotDetected) RSV (PCR) Not Detected (NotDetected) Entero/Rhino (PCR) Not Detected (NotDetected) 12/30/23 Range/Units 08:44 WBC (4.8-10.8) K/ul RBC (4.20-5.40) M/uL Hgb (12.0-16.0) g/dl Hct (37.0-47.0) % MCV (80.0-100.0) fL MCH (25.0-34.0) pg MCHC (32.0-36.0) g/dL RDW Std Deviation (36.4-46.3) fL RDW Coeff of Nevaeh (11.5-14.5) % Plt Count (130-400) K/uL MPV (9.4-12.4) fL Immature Gran % (Auto) % Neut % (Auto) % Lymph % (Auto) % Brewster % (Auto) % Eos % (Auto) % Baso % (Auto) % Neut # (Auto) (1.40-6.50) K/uL Lymph # (Auto) (1.20-3.40) K/uL Brewster # (Auto) (0.11-0.59) K/uL Eos # (Auto) (0.00-0.50) K/uL Baso # (Auto) (0.00-0.20) K/uL Immature Gran # (Auto) (0.01-0.20) K/uL Sodium (136-145) mmol/L Potassium (3.5-5.1) mmol/L Chloride (98-107) mmol/L Carbon Dioxide (21-32) mmol/L Anion Gap (3-11) BUN (6-23) mg/dl Creatinine (0.6-1.2) mg/dl Est Cr Clr Drug Dosing Est GFR ( Amer) ml/min Est GFR (Non-Af Amer) ml/min BUN/Creatinine Ratio (10-20) Glucose (70-99(Fasting)) mg/dl POC Glucose 316 H* (70-99) mg/dl Lactate Calcium (8.6-10.3) mg/dl Magnesium (1.7-2.4) mg/dl Total Bilirubin (0.2-1.0) mg/dl AST (13-39) U/L ALT (7-52) U/L Alkaline Phosphatase (34-104) U/L Ammonia (18-72) umol/L Total Creatine Kinase (26-192) U/L Troponin I High Sens (0-14) pg/ml B-Natriuretic Peptide (0-100) pg/ml Total Protein (6.0-8.3) gm/dl Albumin (3.4-5.0) gm/dl Globulin (2.5-4.0) gm/dl Albumin/Globulin Ratio (0.9-2) Lipase (11-82) U/L Adenovirus (PCR) (NotDetected) B. pertussis DNA (PCR) (NotDetected) B.parapertussis DNA PCR (NotDetected) C. pneumoniae DNA (PCR) (NotDetected) Coronavirus OC43 (PCR) (NotDetected) Coronavirus HKU1 (PCR) (NotDetected) Coronavirus 229E (PCR) (NotDetected) SARS-CoV-2 (PCR) (NotDetected) Coronavirus NL63 (PCR) (NotDetected) Human Metapneumovir PCR (NotDetected) Influenza Type A (PCR) (NotDetected) Influenza Type B (PCR) (NotDetected) M. pneumoniae (PCR) (NotDetected) Parainfluenza 1 (PCR) (NotDetected) Parainfluenza 2 (PCR) (NotDetected) Parainfluenza 3 (PCR) (NotDetected) Parainfluenza 4 (PCR) (NotDetected) RSV (PCR) (NotDetected) Entero/Rhino (PCR) (NotDetected) Imaging Data Radiologist's Impression: Head CT 12/30/23 03:22 Exam(s): CT HEAD Without Contrast EXAM: CT Head Without Intravenous Contrast CLINICAL HISTORY: Reason for exam: n/v, AMS. TECHNIQUE: Axial computed tomography images of the head/brain without intravenous contrast. CTDI is 35.51 mGy and DLP is 624.41 mGy-cm. Automated exposure control was utilized for the study. A dose lowering technique was utilized adhering to the principles of ALARA. COMPARISON: Prior head CT from July 05, 2023. FINDINGS: Brain: Unremarkable. No hemorrhage. Moderate nonspecific white matter changes. No edema. Ventricles: Moderate ventriculomegaly. Bones/joints: Unremarkable. No acute fracture. Soft tissues: Unremarkable. Sinuses: Unremarkable as visualized. No acute sinusitis. Mastoid air cells: Unremarkable as visualized. No mastoid effusion. IMPRESSION: No evidence of acute intracranial pathology. Electronically signed by: Radha Pa MD 12/30/23 04:35 AM MDM Narrative Physical exam and history were performed. Nursing notes, EMR, and Medication List were personally reviewed. No social concerns were identified as barriers to patients care. Case was discussed with my attending who also independently evaluated the patient. Patient appears to have nausea and vomiting with progressive weakness. Patient has some underlying dementia, and has had some difficulty similar episodes in the past. Patient has a litany of chronic medical disease. IV access was established and labs were obtained. CT scan of the head was performed. Chest x-ray was gathered. Patient's blood work is as above and was reviewed. She is anemic at 9.7. She does not have a significantly elevated white blood cell count. Creatinine is 2.46. Glucose 163. Troponin is elevated at 63, where her baseline is 20-30. EKG is not ischemic. BNP is markedly elevated at 4700. CT scan of the head was independently reviewed by myself and radiology showing no acute process. Overall the patient does not appear well for discharge. She has several lab abnormalities that seem new, and combined with her worsening dementia escalation of care is necessary. Patient was discussed with the on-call hospitalist team, who agreed to evaluate the patient here in the ER. Please see their dictation for further patient course, plan, disposition. The chart was completed utilizing [employer] Speech Voice Recognition Software. Grammatical errors, random word insertions, pronoun errors, and incomplete sentences are an occasional consequence of this system due to software limitations, ambient noise, and hardware issues. Any formal questions or concerns about the content, text, or information contained within the body of this dictation should be directly addressed to the provider for clarification. Impression & Plan ARF (acute renal failure), Ambulatory dysfunction, Elevated troponin Discharge Plan Visit Data Chief Complaint: Vomiting Stated Complaint: VOMITING,STOMACH AND BACK PAIN ED Provider: Junie Li ED Midlevel Provider: Jonah Styles Discharge Problem: ARF (acute renal failure), Ambulatory dysfunction, Elevated troponin Patient Disposition: Admitted As Inpatient Discharge Instructions Interventions: ED Discharge Assessment Last Done: 12/30/23 09:13
[2023-12-30 04:40] LABS: Adenovirus PCR Not Detected (NotDetected); Bordetella parapertussis PCR Not Detected (NotDetected); Bordetella pertussis PCR Not Detected (NotDetected); Chlamydia pneumoniae PCR Not Detected (NotDetected); Coronavirus 229E PCR Not Detected (NotDetected); Coronavirus CoV-2 (COVID19)PCR Not Detected (NotDetected); Coronavirus HKU1 PCR Not Detected (NotDetected); Coronavirus NL63 PCR Not Detected (NotDetected); Coronavirus OC43PCR Not Detected (NotDetected); Human Metapneumovirus PCR Not Detected (NotDetected); Influenza A PCR Not Detected (NotDetected); Influenza B PCR Not Detected (NotDetected); Mycoplasma pneumoniae PCR Not Detected (NotDetected); Parainfluenza Virus 1 PCR Not Detected (NotDetected); Parainfluenza Virus 2 PCR Not Detected (NotDetected); Parainfluenza Virus 3 PCR Not Detected (NotDetected); Parainfluenza Virus 4 PCR Not Detected (NotDetected); Respiratory Syncytial VirusPCR Not Detected (NotDetected); Rhinovirus/Enterovirus PCR Not Detected (NotDetected)
[2023-12-30 05:31] LABS: Alanine Aminotransferase 91 U/L (7-52); Albumin Globulin Ratio 0.9 (0.9-2); Albumin Level 4.3 gm/dl (3.4-5.0); Alkaline Phosphatase 115 U/L (34-104); Anion Gap 13 (3-11); Aspartate Aminotransferase 129 U/L (13-39); BUN Creatinine Ratio 37.9 (10-20); Bilirubin,Total 2.3 mg/dl (0.2-1.0); Blood Urea Nitrogen 97 mg/dl (6-23); Calcium 9.6 mg/dl (8.6-10.3); Carbon Dioxide 26 mmol/L (21-32); Chloride 93 mmol/L (98-107); Est GFR (African American) 20.6 ml/min; Est GFR (Non-African American) 17.8 ml/min; Globulin 4.6 gm/dl (2.5-4.0); Glucose 329 mg/dl (70-99(Fasting)); Lipase 139 U/L (11-82); Magnesium 2.1 mg/dl (1.7-2.4); Potassium 5.2 mmol/L (3.5-5.1); Sodium 132 mmol/L (136-145); Total Protein 8.9 gm/dl (6.0-8.3)
--- NOTE | 2023-12-30 05:48 | History & Physical Report ---
Date of Service December 30, 2023 Assessment & Plan (1) ARF (acute renal failure): Plan: ARF on CKD Secondary to GI illness Rule out UTI Hyperkalemia, AGMA secondary to above Troponin elevation in the setting of kidney dysfunction Aspiration pneumonitis, no sepsis for now Encephalopathy secondary to illness chronic systolic heart failure secondary to ischemic cardiomyopathy (15-20%, TTE 2022) status post ICD, patient on the dry side CAD/PAD as per records valvular heart disease (moderate to severe MR/TR, trace AR) hypertension, BP stable hyperlipidemia, on statin Rx DM2 insulin requiring, patient hyperglycemic, suboptimal control as of recent hemoglobin A1c of 7.7 last October 2023 Chronic pancytopenia, hemoglobin slightly lower than baseline possibly from intermittent bleeding LE wounds as per son mild dementia Admit to medical telemetry IVF, bicarb, IV insulin for hyperkalemia Monitor creatinine response to gentle IV hydration Hold home diuretic until creatinine back to baseline Recheck chemistry after initial intervention Nephrology consult if without improvement CT abdomen pelvis re: abdominal pain N.p.o. until CT resulted Follow troponin Unasyn for aspiration pneumonitis Hold Xanax until patient mentation back to baseline Anemia workup, hold antiplatelet Rx for now given decrease in baseline hemoglobin, transfuse PRBC if hemoglobin less than 8 and or for symptomatic anemia Basal bolus insulin adjusted for n.p.o. status, ISS BG goal 1 10-1 40 PT OT eval once medically stable DVT prophylaxis. TEDS, RE Thrombocytopenia, SCDs contraindicated with history PAD DNR Patient son requests for updates on patient's care. Mr. Yousuf Ribera, contact #[phone]. Text document was generated using [employer] voice recognition software. It may contain grammatical or spelling errors. Kindly contact undersigned for clarification of any documentation item in question. History of Present Illness Chief Complaint: Headache as per patient Abdominal pain, nausea, vomiting as per family Primary Care Provider: Melissa Tovar MD History obtained from patient, family, and records. Limited history from patient secondary to dementia. Medical history significant for chronic systolic heart failure secondary to ischemic cardiomyopathy (15-20%, TTE 2022) status post ICD, CAD, PAD, valvular heart disease (moderate to severe MR/TR, trace AR), hypertension, hyperlipidemia, JEREMIE as per records, DM2 insulin requiring, CRI (baseline creatinine 1.7), chronic pancytopenia (baseline hemoglobin 10), mood disorder, mild dementia, ambulatory dysfunction Last confinement December 2022 for decompensated heart failure. Patient with sudden onset achy abdominal pain, back pain, nausea vomiting symptoms yesterday as per son. Patient complaining of headache. Denies chest pain, SOB. Junky cough symptoms from possible aspiration as per son. Patient somewhat more confused than usual as per son. Patient brought to the ER for evaluation. Medical History as above Surgical History : ICD, appendectomy, cataract surgeries, ankle surgery, BTL, cholecystectomy Family History : The DM, breast cancer, heart disease Personal/Social history : Non-smoker, no EtOH intake, lives with family Allergies Allergy/AdvReac Type Severity Reaction Status Date / Time lisinopril AdvReac Intermediate Cough Verified 07/05/23 15:09 Home Medications Medication Instructions Recorded Confirmed Type aspirin 81 mg tablet,delayed 81 mg PO DAILY 12/24/22 12/30/23 History release gabapentin 100 mg capsule 100 mg PO HS 12/24/22 12/30/23 History insulin glargine 100 unit/mL (3 15 unit subcut HS 12/24/22 12/30/23 History mL) subcutaneous pen (Basaglar KwikPen U-100 Insulin) sertraline 100 mg tablet 150 mg PO HS 12/24/22 12/30/23 History isosorbide dinitrate 10 mg tablet 10 mg PO BID@0700,1200 30 days #60 12/29/22 12/30/23 Rx tabs acetaminophen 325 mg tablet 650 mg PO Q4H PRN Pain 07/05/23 12/30/23 History (Tylenol) alprazolam 0.25 mg tablet 0.25 mg PO DAILY PRN Anxiety 07/05/23 12/30/23 History cholecalciferol (vitamin D3) 25 25 mcg PO DAILY 07/05/23 12/30/23 History mcg (1,000 unit) capsule (Vitamin D3) cranberry 500 mg capsule 500 mg PO DAILY 07/05/23 12/30/23 History dulaglutide 0.75 mg/0.5 mL 0.75 mg subcut WK 07/05/23 12/30/23 [facility] ketoconazole 2 % shampoo 1 ea topical DIRECTED PRN OPEN 07/05/23 12/30/23 History SORES ON HEAD, UNTIL HEALED ketoconazole 2 % topical cream 1 applic topical BID PRN FACIAL 07/05/23 12/30/23 History RASH WHEN FLARES nitroglycerin 0.4 mg sublingual 0.4 mg sublingual DIRECTED PRN 07/05/23 12/30/23 History tablet (Nitrostat) Chest Pain rosuvastatin 10 mg tablet 10 mg PO QAM 07/05/23 12/30/23 History torsemide 10 mg tablet 20 mg PO QAM 07/05/23 12/30/23 History metoprolol succinate 50 mg 50 mg PO BID 12/30/23 12/30/23 History tablet,extended release 24 hr mirtazapine 15 mg tablet 15 mg PO HS 12/30/23 12/30/23 History Past Med/Surg History Problem List (Updated 12/30/23 @ 09:02 by Joao Kothari MD) ARF (acute renal failure) Thrombocytopenia (Acute) Acute exacerbation of congestive heart failure (Acute) Hypoxia (Acute) Recurrent UTI Cystocele UTI (urinary tract infection) Weakness (Acute) CHF (congestive heart failure) (Acute) SOB (shortness of breath) (Acute) Pedal edema (Acute) Pancytopenia (Acute) Acute on chronic systolic CHF (congestive heart failure) Acute UTI (Acute) Weakness (Acute) Contusion of hip (Acute) Ambulatory dysfunction (Acute) Weakness (Acute) Acute UTI (Acute) Falls frequently (Acute) Sensorineural hearing loss (SNHL) of both ears Encounter for pre-operative examination Arthritis (Chronic) Hypertension (Chronic) Ischemic cardiomyopathy (Chronic) Hypoxia (Acute) Elevated troponin (Acute) Pleural effusion (Acute) CKD (chronic kidney disease) (Acute) Elevated troponin I level Acute worsening of stage 4 chronic kidney disease DVT prophylaxis Thrombocytopenia (Acute) CHF (congestive heart failure) Chronic HFrEF (heart failure with reduced ejection fraction) AICD (automatic cardioverter/defibrillator) present (Chronic) 2017--meditronic @ [facility] Moderate mitral regurgitation (Chronic) Aortic stenosis (Chronic) Chronic systolic heart failure (Chronic) DM II (diabetes mellitus, type II), controlled (Chronic) GERD (gastroesophageal reflux disease) (Chronic) Anxiety and depression (Chronic) Anemia (Chronic) Hyperkalemia (Chronic) Hyperlipidemia LDL goal <70 (Chronic) Chronic renal disease, stage IV (Chronic) Medical History Pancytopenia Dementia Hypertension Surgical History History of open reduction and internal fixation (ORIF) procedure ankle fx---hardware in place History of bilateral cataract extraction History of tubal ligation History of appendectomy Status post cholecystectomy Family History Mother Family history of diabetes mellitus Brother Family history of diabetes mellitus Sister Family history of diabetes mellitus Other No family history of adverse response to anesthesia Social History Smoking Status: Unknown if ever smoked Second Hand Exposure: No; Do You Dip or Chew Tobacco: No; Tobacco Cessation Education Requested by Patient: No Hx Alcohol Use: No Hx Substance Use: No Preferred Language: Italian Communication Ability: Effective Hand Alterations Tailor Required: No Beliefs That Will Affect Care: None marital status: / Current Living Situation: Family Current Living Situation Comment: with daughter How many Children do You have: 3 Other Information That Helps Us Care for You: No Feels Safe at Home: Yes Safety Concerns: Feels Safe At This Time Assistive Devices: None Review of Systems Review of Systems: Could not be reliably obtained secondary to disorientation Physical Exam 2 Physical Exam: GENERAL: Disoriented, no respiratory distress SKIN: Pallor, warm HEENT: Pale palpebral conjunctivae, no ptosis, dry buccal mucosa NECK : Supple, no tenderness CHEST : CTA, no tenderness HEART : RRR, systolic murmur ABDOMEN: Some distention, minimal epigastric tenderness EXTREMITIES : Bilateral LE discoloration with scabbed pedal wounds NEUROLOGIC : Disoriented, no facial asymmetry, gait and stance not assessed Results & Data Results & Data Vital Signs (Past 12 Hours) Vital Signs Temp Pulse Resp BP Pulse Ox O2 Del Method 12/30/23 04:24 92 H 12/30/23 03:12 36.7 C 96 H 22 130/75 98 Room Air Laboratory Results Laboratory Results WBC 10.25 K/ul (4.8-10.8) 12/30/23 03:35 RBC 2.96 M/uL (4.20-5.40) L 12/30/23 03:35 Hgb 9.7 g/dl (12.0-16.0) L 12/30/23 03:35 Hct 29.7 % (37.0-47.0) L 12/30/23 03:35 MCV 100.3 fL (80.0-100.0) H 12/30/23 03:35 MCH 32.8 pg (25.0-34.0) 12/30/23 03:35 MCHC 32.7 g/dL (32.0-36.0) 12/30/23 03:35 RDW Std Deviation 61.5 fL (36.4-46.3) H 12/30/23 03:35 RDW Coeff of Nevaeh 16.6 % (11.5-14.5) H 12/30/23 03:35 Plt Count 66 K/uL (130-400) L 12/30/23 03:35 MPV 11.7 fL (9.4-12.4) 12/30/23 03:35 Immature Gran % (Auto) 1.2 % 12/30/23 03:35 Neut % (Auto) 83.5 % 12/30/23 03:35 Lymph % (Auto) 4.9 % 12/30/23 03:35 [place] % (Auto) 10.3 % 12/30/23 03:35 Eos % (Auto) 0.0 % 12/30/23 03:35 Baso % (Auto) 0.1 % 12/30/23 03:35 Neut # (Auto) 8.56 K/uL (1.40-6.50) H 12/30/23 03:35 Lymph # (Auto) 0.50 K/uL (1.20-3.40) L 12/30/23 03:35 [place] # (Auto) 1.06 K/uL (0.11-0.59) H 12/30/23 03:35 Eos # (Auto) 0.00 K/uL (0.00-0.50) 12/30/23 03:35 Baso # (Auto) 0.01 K/uL (0.00-0.20) 12/30/23 03:35 Immature Gran # (Auto) 0.12 K/uL (0.01-0.20) 12/30/23 03:35 Sodium 132 mmol/L (136-145) L 12/30/23 03:35 Potassium 5.2 mmol/L (3.5-5.1) H 12/30/23 03:35 Chloride 93 mmol/L (98-107) L 12/30/23 03:35 Carbon Dioxide 26 mmol/L (21-32) 12/30/23 03:35 Anion Gap 13 (3-11) H 12/30/23 03:35 BUN 97 mg/dl (6-23) H 12/30/23 03:35 Creatinine 2.56 mg/dl (0.6-1.2) H 12/30/23 03:35 Est Cr Clr Drug Dosing Not Reportable 12/30/23 03:35 Est GFR ( Amer) 20.6 ml/min 12/30/23 03:35 Est GFR (Non-Af Amer) 17.8 ml/min 12/30/23 03:35 BUN/Creatinine Ratio 37.9 (10-20) H 12/30/23 03:35 Glucose 329 mg/dl (70-99(Fasting)) H* 12/30/23 03:35 Calcium 9.6 mg/dl (8.6-10.3) 12/30/23 03:35 Magnesium 2.1 mg/dl (1.7-2.4) 12/30/23 03:35 Total Bilirubin 2.3 mg/dl (0.2-1.0) H 12/30/23 03:35 AST 129 U/L (13-39) H 12/30/23 03:35 ALT 91 U/L (7-52) H 12/30/23 03:35 Alkaline Phosphatase 115 U/L (34-104) H 12/30/23 03:35 Ammonia 20.0 umol/L (18-72) 12/30/23 04:20 Troponin I High Sens 63.0 pg/ml (0-14) H* 12/30/23 03:35 B-Natriuretic Peptide > 4700 pg/ml (0-100) H 12/30/23 03:35 Total Protein 8.9 gm/dl (6.0-8.3) H 12/30/23 03:35 Albumin 4.3 gm/dl (3.4-5.0) 12/30/23 03:35 Globulin 4.6 gm/dl (2.5-4.0) H 12/30/23 03:35 Albumin/Globulin Ratio 0.9 (0.9-2) 12/30/23 03:35 Lipase 139 U/L (11-82) H 12/30/23 03:35 Adenovirus (PCR) Not Detected (NotDetected) 12/30/23 03:35 B. pertussis DNA (PCR) Not Detected (NotDetected) 12/30/23 03:35 B.parapertussis DNA PCR Not Detected (NotDetected) 12/30/23 03:35 C. pneumoniae DNA (PCR) Not Detected (NotDetected) 12/30/23 03:35 Coronavirus OC43 (PCR) Not Detected (NotDetected) 12/30/23 03:35 Coronavirus HKU1 (PCR) Not Detected (NotDetected) 12/30/23 03:35 Coronavirus 229E (PCR) Not Detected (NotDetected) 12/30/23 03:35 SARS-CoV-2 (PCR) Not Detected (NotDetected) 12/30/23 03:35 Coronavirus NL63 (PCR) Not Detected (NotDetected) 12/30/23 03:35 Human Metapneumovir PCR Not Detected (NotDetected) 12/30/23 03:35 Influenza Type A (PCR) Not Detected (NotDetected) 12/30/23 03:35 Influenza Type B (PCR) Not Detected (NotDetected) 12/30/23 03:35 M. pneumoniae (PCR) Not Detected (NotDetected) 12/30/23 03:35 Parainfluenza 1 (PCR) Not Detected (NotDetected) 12/30/23 03:35 Parainfluenza 2 (PCR) Not Detected (NotDetected) 12/30/23 03:35 Parainfluenza 3 (PCR) Not Detected (NotDetected) 12/30/23 03:35 Parainfluenza 4 (PCR) Not Detected (NotDetected) 12/30/23 03:35 RSV (PCR) Not Detected (NotDetected) 12/30/23 03:35 Entero/Rhino (PCR) Not Detected (NotDetected) 12/30/23 03:[address] 12/30/23 03:22 Exam(s): CT HEAD Without Contrast EXAM: CT Head Without Intravenous Contrast CLINICAL HISTORY: Reason for exam: n/v, AMS. TECHNIQUE: Axial computed tomography images of the head/brain without intravenous contrast. CTDI is 35.51 mGy and DLP is 624.41 mGy-cm. Automated exposure control was utilized for the study. A dose lowering technique was utilized adhering to the principles of ALARA. COMPARISON: Prior head CT from July 05, 2023. FINDINGS: Brain: Unremarkable. No hemorrhage. Moderate nonspecific white matter changes. No edema. Ventricles: Moderate ventriculomegaly. Bones/joints: Unremarkable. No acute fracture. Soft tissues: Unremarkable. Sinuses: Unremarkable as visualized. No acute sinusitis. Mastoid air cells: Unremarkable as visualized. No mastoid effusion. IMPRESSION: No evidence of acute intracranial pathology. Electronically signed by: Radha Pa MD 12/30/23 04:35 AM Diagnostic Findings Chest x-ray as per my interpretation cardiomegaly, no congestion; pacemaker EKG as per my interpretation : Rate 90, NSR, LAD, LAFB, LVH, T wave inversion inferior and lateral leads
[2023-12-30] MEDS: SODIUM BICARB 8.4% INJ 50 MEQ/50 ML SYR IV STA (06:20)
[2023-12-30] MEDS ORDERED: DEXTROSE 50% 50 ML SYRINGE IV PRN (06:24)
[2023-12-30] MEDS ORDERED: GLUCAGON FOR INJ 1 MG VIAL SQ PRN (06:24)
[2023-12-30] MEDS ORDERED: GLUCOSE 40% GEL 15 GM TUBE PO PRN (06:24)
[2023-12-30] MEDS ORDERED: GLUCOSE 10 TAB/TUBE PO PRN (06:24)
[2023-12-30] MEDS: NovoLIN-R INSULIN PER UNIT CHARGE IV STA (06:25)
[2023-12-30] MEDS: SODIUM CHLORIDE 0.9% 1,000 ML IV STA (06:48)
[2023-12-30] MEDS: AMPICILLIN/SULBACTAM SOD 3,000 MG/100 ML BAG IV STA (06:48)
[2023-12-30] MEDS: ACETAMINOPHEN 1,000 MG/100 ML VIAL IV STA (06:49)
[2023-12-30] MEDS: Patient's HEIGHT &/or WEIGHT Needed STA (06:53)
--- NOTE | 2023-12-30 07:15 | XRay Report ---
XR chest 1V portable CLINICAL HISTORY: AMS, weakness TECHNIQUE: Single frontal radiograph of the chest was obtained. Comparison: Comparison is made to chest radiograph 01/05/2023 FINDINGS: Pacemaker defibrillator is seen. Cardiomegaly is noted. The aortic arch is calcified. The lungs are c lear. No evidence of pleural effusion or pneumothorax. IMPRESSION: No acute chest disease. Cardiomegaly is noted. ACT 112: Negative or not required by law. Electronically signed by: Gerber Ramos M.D. 12/30/2023 7:13 AM
[2023-12-30 07:25] LABS: Creatine Kinase 61 U/L (26-192)
--- NOTE | 2023-12-30 09:11 | CT Scan Report ---
CT abd pelvis wo con CLINICAL HISTORY: abd/back pain TECHNIQUE: Helical axial images of the abdomen and pelvis were obtained. Automated dose lowering tech niques and/or adjustment according to patient size were utilized for this exam. This exam was perfor med without intravenous contrast. CT DOSE: 540.97 mGy.cm COMPARISON: Comparison is made to CT abdomen pelvis 07/05/2023 FINDINGS: Lower chest: Bronchial wall thickening and right pleural effusion are seen. Cardiomegaly is seen wit h biatrial enlargement. Liver: Unremarkable. No focal lesions are seen. Gallbladder and biliary tree: No calcified gallstones. Normal caliber wall. No intra- or extrahepatic biliary ductal dilation. Pancreas: Unremarkable, no focal lesions. Spleen: Unremarkable. Adrenals: Thickening of the adrenal glands is seen. Kidneys and ureters: Unremarkable. Bladder: Diffuse homogeneous wall thickening is seen. Reproductive organs: Unremarkable. Bowel: Incidental note is made of a prominent rectal stool ball without features of inspissation. Lymph nodes Retroperitoneal: Unremarkable. Pelvic: Unremarkable. Mesenteric: Unremarkable. Peritoneum: Normal. Vessels: Atherosclerotic calcifications are seen. Abdominal wall: Unremarkable. Bones: Degenerative changes are seen. Anterior compression deformities are seen at T12 and T11. T11 c ompression deformity is new from prior exam. IMPRESSION: 1. Acute to subacute appearing T11 compression deformity in this patient with back pain. Otherwise n o acute intra-abdominal abnormalities are seen. Chronic changes as above. 2. Cardiomegaly and small right pleural effusion. Bronchial wall thickening is compatible with infec tious/inflammatory airways disease. ACT 112: Negative or not required by law. Electronically signed by: Gerber Ramos M.D. 12/30/2023 9:09 AM
[2023-12-30] MEDS: INSULIN ASPART PER UNIT CHARGE SC SCH ×2 (10:10→18:02)
[2023-12-30] MEDS: LANTUS PER UNIT CHARGE SQ SCH (10:11)
[2023-12-30] MEDS: ROSUVASTATIN CALCIUM 10 MG TAB PO SCH (10:35)
[2023-12-30 11:25] LABS: Base Excess VBG 5.4 mEq/L; HCO3 VBG 29 mmol/L; PCO2 VBG 38 mmHg (38-50); PO2 VBG 69 mmHg; pH VBG 7.49 (7.36-7.41)
[2023-12-30 12:05] LABS: Reticulocyte % 3.81 % (0.50-2.00); Reticulocytes # 0.1 10^6/uL (0.020-0.100)
[2023-12-30] MEDS ORDERED: PHARMACY GLYCEMIC MGMT CONSULT PRN (12:08)
--- NOTE | 2023-12-30 12:14 | Communication Note ---
Date of Service: December 30, 2023 73-year-old lady with chronic systolic heart failure secondary to ischemic cardiomyopathy [15 to 20%, TTE 2022] status post ICD, CAD, PAD, insulin req uiring T2DM, JEREMIE, HTN, HLD, CKD [baseline creatinine 1.7], chronic pancytopenia [baseline hemoglobin 10], mild dementia, ambulatory dysfunction who presented with sudden onset achy abdominal pain, back pain, nausea and vomiting symptoms since 1 day ago [employer]. Nausea and vomiting followed by junky cough symptoms, possible aspiration as per son. Patient noted to be somewhat more confused than usual as per son. She is being managed for the following: Possible aspiration pneumonitis: N.p.o. until speech eval. continue with ampicillin, probiotic. Follow blood culture. Hyperkalemia/Hyponatremia/CORBY over CKD stage III: sodium downtrending, 132. Potassium uptrending, 5.2. Creatinine uptrending, 2.56. Patient with advanced heart failure. Nephrotoxic's on hold, gentle IV fluid. Consult nephrology given complexity of comorbidities and worsening renal fxn. Repeat BMP around 2 to 3 PM today. Metabolic encephalopathy: Secondary to above. CT head with no acute finding. Expect to improve with improvement in underlying condition. Continue to follow. Hold neuropsychotropic's. T1 compression deformity: Patient came in with back pain, CTAP suggestive of T1 fracture. Will get vitamin D level, orthospine consult, PT/OT after orthospine evaluation. HTN, ho: BP meds on hold due to low BP, assess in AM resume as able. For detailed information on the patient, refer to today's H&P note.
[2023-12-30 12:15] LABS: Calcium 9.3 mg/dl (8.6-10.3); Potassium 4.5 mmol/L (3.5-5.1)
[2023-12-30 12:21] LABS: BUN Creatinine Ratio 37.9 (10-20); Creatinine Clr Calc Pharmacy 18.4 ml/min; Est GFR (African American) 20.9 ml/min; Est GFR (Non-African American) 18.1 ml/min
[2023-12-30 12:28] LABS: Troponin I High Sensitivity 169.8 pg/ml (0-14)
[2023-12-30 12:32] LABS: Ferritin 431.1 ng/ml (8-388)
[2023-12-30 12:43] LABS: Folate (Folic Acid),Ser orPlas > 22.30 ng/ml (>5.38)
[2023-12-30 12:44] LABS: Vitamin B12 1043 pg/ml (180-914)
[2023-12-30] MEDS: ISOSORBIDE DINITRATE 5 MG TAB PO SCH (12:51)
--- NOTE | 2023-12-30 13:50 | Pharmacy Report ---
Pharmacy Glycemic Short Note 2 - Date of Service December 30, 2023 - Glycemic Short BSG Results (Last 24 hours): 12/30/23 12/30/23 12/30/23 03:35 08:44 11:04 Glucose 329 H* 242 H POC Glucose 316 H* 12/30/23 12:49 Glucose POC Glucose 222 H OUTPATIENT ANTIDIABETIC REGIMEN: * Basaglar 15 units SC HS * Trulicity HbA1c: 7.5% (12/25/22), recheck ordered for AM ASSESSMENT: * HS is a 73 year old female who presented to ED early this morning w/ caregiver. Patient's clinical status has significantly changed per caregivers. * Patient w/ abdominal/back pain, nausea/vomiting, and increased weakness. * Found to be in acute renal failure on top of chronic kidney disease (hyperkalemic in ED, given IV insulin) * Blood sugar on presentation >300 mg/dL * Received basal, SC bolus, and IV dose of insulin * Originally NPO, now ordered diet PLAN FOR INPATIENT GLYCEMIC CONTROL: * Basal insulin * Lantus 0-5-10 units SQ BID * Bolus insulin * NovoLog per scale ACHS or Q6hrs while NPO * Goal Range: Low 110 mg/dL - High 140 mg/dL * Correction Factor: 30 mg/dL/unit * Nutritional / Prandial insulin per carb ratio of 1 unit per 10 grams CHO consumed
[2023-12-30 14:52] LABS: BUN Creatinine Ratio 40.7 (10-20); Calcium 9.2 mg/dl (8.6-10.3); Creatinine Clr Calc Pharmacy 18.9 ml/min; Est GFR (African American) 21.6 ml/min; Est GFR (Non-African American) 18.7 ml/min; Potassium 4.4 mmol/L (3.5-5.1)
--- NOTE | 2023-12-30 16:25 | Nephrology Consultation ---
Date of Consultation December 30, 2023 Assessment & Plan (1) Acute worsening of stage 4 chronic kidney disease: baseline creatinine historically high ones. came in creat 2.6, minimally improved to 2.5 after a few hrs of supportive care. suspect ischemic ATN in setting of acute HF. no urine studies to evaluate currently. no obstruction on imaging. no indication to discuss dialysis at this time and a poor candidate should need arise given dementia, advanced HF, relative hypotension. -bmp tomorrow am -will stop NS for now and start FR as below -continue to avoid IV contrast unless life/limb saving -no emergent dialysis indication -obtain UA if/when feasible potassium has normalized though may be not eliminated > if elevated on recheck can consider IV lasix versus lokelma (2) Acute on chronic systolic CHF (congestive heart failure): volume overloaded; -started regular diet this evening adn will therefore stop NS -also started FR 1.5 L >>no standing diuretic for now but can start one if resp status declines History of Present Illness Reason for Consultation: CORBY on CKD, HF, hyperkalemia Requesting Physician: Dr Guan Attending Physician: Ermelinda Guan MD History of Present Illness 73 y/o F whom I'm asked to see for HF, hyperkalemia, CORBY on CKD was admitted this am w/ same after presenting with a few days of N/V leading also to aspiration pneumonitis and metabolic encephalopathy. PMH chronic systolic heart failure secondary to ischemic cardiomyopathy ( EF 15- 20% on 2022 TTE) status post ICD, valvular heart disease (moderate to severe MR/TR, trace AR), hypertension, PAD, JEREMIE, DM2 on insulin, CKD (baseline creatinine 1.7), chronic pancytopenia (baseline hemoglobin 10), mood disorder, mild dementia, ambulatory dysfunction, cystocele, hyperlipidemia. Follows in CKD clinic baseline creatinine high ones, early CKD4. she was given 5 units IV insulin, an amp of sodium bicarbonate, and NS to treat high potassium and diuretics were held. currently getting NS at 60 mL hourly and unasyn. CT shows subacute Tspine frx. The pt is awake and alert > denies dyspnea, chest pain or palpitations; denies orthopnea. endorses urinary urgency and [place]. no f/c, no rash. tells me also she's hungry. denies N; cannot recall emesis since arrival or not. also some back pain > spinal/post thorax. no dysuria or gross hematuria. Allergies Allergy/AdvReac Type Severity Reaction Status Date / Time lisinopril AdvReac Intermediate Cough Verified 07/05/23 15:09 Home Medications Medication Instructions Recorded Confirmed Type aspirin 81 mg tablet,delayed 81 mg PO DAILY 12/24/22 12/30/23 History release gabapentin 100 mg capsule 100 mg PO HS 12/24/22 12/30/23 History insulin glargine 100 unit/mL (3 15 unit subcut HS 12/24/22 12/30/23 History mL) subcutaneous pen (Basaglar KwikPen U-100 Insulin) sertraline 100 mg tablet 150 mg PO HS 12/24/22 12/30/23 History isosorbide dinitrate 10 mg tablet 10 mg PO BID@0700,1200 30 days #60 12/29/22 12/30/23 Rx tabs acetaminophen 325 mg tablet 650 mg PO Q4H PRN Pain 07/05/23 12/30/23 History (Tylenol) alprazolam 0.25 mg tablet 0.25 mg PO DAILY PRN Anxiety 07/05/23 12/30/23 History cholecalciferol (vitamin D3) 25 25 mcg PO DAILY 07/05/23 12/30/23 History mcg (1,000 unit) capsule (Vitamin D3) cranberry 500 mg capsule 500 mg PO DAILY 07/05/23 12/30/23 History dulaglutide 0.75 mg/0.5 mL 0.75 mg subcut WK 07/05/23 12/30/23 History subcutaneous pen injector (Trulicity) ketoconazole 2 % shampoo 1 ea topical DIRECTED PRN OPEN 07/05/23 12/30/23 History SORES ON HEAD, UNTIL HEALED ketoconazole 2 % topical cream 1 applic topical BID PRN FACIAL 07/05/23 12/30/23 History RASH WHEN FLARES nitroglycerin 0.4 mg sublingual 0.4 mg sublingual DIRECTED PRN 07/05/23 12/30/23 History tablet (Nitrostat) Chest Pain rosuvastatin 10 mg tablet 10 mg PO QAM 07/05/23 12/30/23 History torsemide 10 mg tablet 20 mg PO QAM 07/05/23 12/30/23 History metoprolol succinate 50 mg 50 mg PO BID 12/30/23 12/30/23 History tablet,extended release 24 hr mirtazapine 15 mg tablet 15 mg PO HS 12/30/23 12/30/23 History Patient History Medical History Chronic renal disease, stage IV Pancytopenia Dementia Hypertension Surgical History History of open reduction and internal fixation (ORIF) procedure ankle fx---hardware in place History of bilateral cataract extraction History of tubal ligation History of appendectomy Status post cholecystectomy Family History Mother Family history of diabetes mellitus Brother Family history of diabetes mellitus Sister Family history of diabetes mellitus Other No family history of adverse response to anesthesia Social History Smoking Status: Unknown if ever smoked Second Hand Exposure: No; Do You Dip or Chew Tobacco: No; Tobacco Cessation Education Requested by Patient: No Hx Alcohol Use: No Hx Substance Use: No Preferred Language: Ghanaian Communication Ability: Effective Flow Worker Required: No Beliefs That Will Affect Care: None marital status: / Current Living Situation: Family Current Living Situation Comment: with daughter How many Children do You have: 3 Other Information That Helps Us Care for You: No Feels Safe at Home: Yes Safety Concerns: Feels Safe At This Time Assistive Devices: None Review of Systems 2 Review of Systems: All systems reviewed & are unremarkable except as noted in HPI & below Physical Exam 2 Constitutional: well developed, + frail appearing and cooperative; no acute distress Eyes: L eye blind; eye open and tracks Respiratory: normal respiratory effort Auscultation: + diminished lung sounds Cardiovascular: Rate/Rhythm: regular rate and regular rhythm Heart Sounds: + murmur Extremities: + edema (trace) Gastrointestinal (Abdomen): Inspection/Auscultation: normal bowel sounds P ercussion/Palpation: abdomen soft; abdomen nontender Musculoskeletal: Extremities: strength 5/5 throughout Skin: no rashes, warm and dry Neurologic: ha, fluent though limited speech, poor historian; no tremor Results & Data Vital Signs (Past 12 Hours) Vital Signs Temp Pulse Pulse Resp BP BP Pulse Ox 12/30/23 15:20 36.8 C 69 16 115/55 L 100 12/30/23 12:47 68 20 133/63 100 12/30/23 09:54 77 20 94/66 L 100 12/30/23 09:52 12/30/23 09:52 77 20 94/66 L 100 12/30/23 08:44 78 12/30/23 06:00 87 21 132/77 94 12/30/23 05:30 82 20 127/93 95 12/30/23 05:00 90 24 110/67 96 12/30/23 04:30 87 20 110/70 97 12/30/23 04:24 92 H Pulse Ox O2 Del Method O2 Del Method 12/30/23 15:20 Room Air 12/30/23 12:47 Room Air 12/30/23 09:54 Room Air 12/30/23 09:52 100 Room Air 12/30/23 09:52 Room Air 12/30/23 08:44 12/30/23 06:00 12/30/23 05:30 12/30/23 05:00 12/30/23 04:30 12/30/23 04:24 Laboratory Results 12/30/23 03:35 12/30/23 14:[address] a/p non con (images personally reviewed; agree w/ findings) 1. Acute to subacute appearing T11 compression deformity in this patient with back pain. Otherwise no acute intra-abdominal abnormalities are seen. Chronic changes as above. 2. Cardiomegaly and small right pleural effusion. Bronchial wall thickening is compatible with infectious/inflammatory airways disease. >>no obstruction or ohter acute process
[2023-12-30] MEDS: CARBOHYDRATES FOR HYPOGLYCEMIA PO PRN (17:00)
[2023-12-30] MEDS: AMPICILLIN/SULBACTAM SOD 3,000 MG/100 ML BAG IV SCH (20:30)
[2023-12-30] MEDS: ACETAMINOPHEN 325 MG TAB PO PRN (20:30)
[2023-12-30] MEDS: SERTRALINE HCL 100 MG TABLET PO SCH (20:31)
[2023-12-30] MEDS ORDERED: LANTUS PER UNIT CHARGE SQ SCH (21:00)
[2023-12-30 21:15] LABS: Appearance Urine Clear (Clear); Bacteria Urine Automated None Seen (None Seen); Bilirubin Urine Negative (Negative); Blood Urine Negative (Negative); Color Urine Yellow; Glucose Urine UA Negative (Negative); Hyaline Casts Urine Present /lpf (None Presnt); Ketones Urine Negative (Negative); Leukocyte Esterase Urine 1+ (Negative); Nitrite Urine Negative (Negative); Protein Urine 1+ (Negative); RBC Urine Automated 0-2 /hpf (0-2); Specific Gravity Urine 1.016 (1.000-1.030); Urobilinogen Urine Negative (Negative); WBC Urine Automated 0-5 /hpf (0-5)
[2023-12-30] MEDS: LIDOCAINE 5% 1 PATCH TD SCH (23:02)
[2023-12-30] MEDS: traMADol HCL 50 MG TABLET PO PRN (23:07)
[2023-12-30] MEDS: SODIUM CHLORIDE 0.9% 1,000 ML IV ONE (23:08)
[2023-12-31 08:45] LABS: Basophils # (auto) 0.01 K/uL (0.00-0.20); Basophils % (auto) 0.2 %; Hematocrit (blood only) 26.4 % (37.0-47.0); Hemoglobin 8.9 g/dl (12.0-16.0); Immature Granulocytes # (auto) 0.09 K/uL (0.01-0.20); Immature Granulocytes % (auto) 1.4 %; Lymphocytes # (auto) 0.57 K/uL (1.20-3.40); Lymphocytes % (auto) 8.7 %; Mean Corpuscular Hemoglobin 33.6 pg (25.0-34.0); Mean Corpuscular Hgb Conc 33.7 g/dL (32.0-36.0); Mean Corpuscular Volume 99.6 fL (80.0-100.0); Mean Platelet Volume 12.3 fL (9.4-12.4); Monocytes # (auto) 0.55 K/uL (0.11-0.59); Monocytes % (auto) 8.4 %; Neutrophils # (auto) 5.36 K/uL (1.40-6.50); Neutrophils % (auto) 81.3 %; Platelet Count 48 K/uL (130-400); RDW Coefficient of Variation 16.7 % (11.5-14.5); RDW Standard Deviation 60.3 fL (36.4-46.3); Red Blood Count 2.65 M/uL (4.20-5.40); White Blood Count 6.58 K/ul (4.8-10.8)
[2023-12-31] MEDS: ADVANCED PROBIOTIC 625 MG CAPSULE PO SCH (08:54)
[2023-12-31] MEDS: ASPIRIN 81 MG ECTAB PO SCH (08:54)
[2023-12-31] MEDS: METOPROLOL SUCC 50MG EXT REL TAB PO SCH (08:55)
[2023-12-31 08:59] LABS: BUN Creatinine Ratio 41.9 (10-20); Calcium 8.8 mg/dl (8.6-10.3); Creatinine Clr Calc Pharmacy 20.1 ml/min; Est GFR (African American) 24.5 ml/min; Est GFR (Non-African American) 21.1 ml/min; Potassium 4.6 mmol/L (3.5-5.1)
[2023-12-31 09:29] LABS: Estimated Average Glucose 146 mg/dl; Hemoglobin A1C 6.7 % (4.5-5.6)
[2023-12-31] MEDS: oxyCODONE HCL IR 5 MG TAB (IMMEDIATE RELEASE) PO STA (09:46)
--- NOTE | 2023-12-31 11:07 | Nephrology Progress Note ---
Date of Service December 31, 2023 Assessment & Plan (1) Acute worsening of stage 4 chronic kidney disease: Plan: improving stage 4 CKD favor not oliguric (incontinent). baseline creatinine historically high ones. came in creat 2.6, improved today to 2.2 w/ supportive care. likely ischemic ATN in setting of acute HF. no urine studies to evaluate currently. no obstruction on imaging. no indication to discuss dialysis at this time and a poor candidate should need arise given dementia, advanced HF, relative hypotension. UA w/o bacteria and w/ some mild inflammation -bmp daily -remains w/o indication for NS at this time; would cont to hold diuretics as well -temp 39.9 for reevaluation and consideration of blood cxs of real and persistent > d/w Dr Guan and we are in agreement; on further eval w/ nurses sounds like this was a registered diet technician error -hyperkalemia from yesterday resolved w/ medical mgt; no K binders on or indicated currently -continue to avoid IV contrast unless life/limb saving -no emergent dialysis indication >hgb down to 8.9 today from 9.7 yesterday > possible mild dilution; observe for now; pancytopenia in past but not today d/t WBC wnl > monitor Care reviewed w/ Dr Guan regarding no current need for fluids or diuretics; we are in agreement; she has lidocaine patch for back pain > not enough ; will ask hopsitalist if voltaren gel or similar available. (2) Acute on chronic systolic CHF (congestive heart failure): Plan: volume overloaded; -cont carb consistent / EZ to chew diet -cont FR 1.5 L >>no standing diuretic for now but can start one if resp status declines; at home on torsemide 20 mg daily Admission and Anticipated Discharge Date Admission Date: December 30, 2023 Subjective no acute interval events clinically; not sob; c/o marked thoracic back pain; no suprapubic pain (darby now); no dyspnea or orthopnea or cough; endorses bit of anxiety Review of Systems 2 Review of Systems: All systems reviewed & are unremarkable except as noted in Subjective Physical Exam 2 Constitutional: well developed, + acute distress (slight; anxious), + frail appearing and cooperative Respiratory: normal respiratory effort Auscultation: + diminished lung sounds Cardiovascular: Rate/Rhythm: regular rate and regular rhythm Heart Sounds: + murmur Extremities: + edema (trace) Musculoskeletal: Extremities: strength 5/5 throughout Skin: no rashes, warm and dry Results & Data Vital Signs (Past 12 Hours) Vital Signs Temp Pulse Resp BP Pulse Ox O2 Del Method 12/31/23 07:21 39.9 C H 72 18 141/68 H 95 Room Air 12/31/23 02:13 36.7 C 71 16 118/65 96 Room Air Laboratory Results 12/31/23 08:08 12/31/23 08:08
[2023-12-31 12:38] LABS: Adenovirus F 40/41 PCR Not Detected (NotDetected); Astrovirus PCR Not Detected (NotDetected); Campylobacter PCR Not Detected (NotDetected); Cryptosporidium PCR Not Detected (NotDetected); Cyclospora cayetanensis PCR Not Detected (NotDetected); Entamoeba histolytica PCR Not Detected (NotDetected); Enteroaggregative E.coli(EAEC) Not Detected (NotDetected); Enteropathogenic E.coli (EPEC) Not Detected (NotDetected); Enterotoxigenic E.coli (ETEC) Not Detected (NotDetected); Giardia lamblia PCR Not Detected (NotDetected); Norovirus GI/GII PCR Not Detected (NotDetected); Plesiomonas shigelloides PCR Not Detected (NotDetected); Rotavirus A PCR Not Detected (NotDetected); Salmonella PCR Not Detected (NotDetected); Sapovirus PCR Not Detected (NotDetected); Shiga-like Toxin E.coli (STEC) Not Detected (NotDetected); Shigella/Enteroinvasive E.coli Not Detected (NotDetected); Vibrio cholerae PCR Not Detected (NotDetected); Vibrio species PCR Not Detected (NotDetected); Yersinia enterocolitica PCR Not Detected (NotDetected)
[2023-12-31] MEDS: LANTUS PER UNIT CHARGE SQ ONE (13:13)
--- NOTE | 2023-12-31 13:40 | Pharmacy Report ---
Pharmacy Glycemic Short Note 2 - Date of Service December 31, 2023 - Glycemic Short BSG Results (Last 24 hours): 12/30/23 12/30/23 12/30/23 14:05 17:02 17:03 Glucose 163 H POC Glucose 56 L* 57 L* 12/30/23 12/30/23 12/30/23 17:18 17:31 20:47 Glucose POC Glucose 57 L* 70 125 H 12/31/23 12/31/23 12/31/23 08:08 08:23 12:08 Glucose 84 POC Glucose 92 297 H 12/31/23 12:18 Glucose POC Glucose 316 H* OUTPATIENT ANTIDIABETIC REGIMEN: * Basaglar 15 units SC HS * Trulicity HbA1c: 7.5% (12/25/22), recheck ordered for AM ASSESSMENT: 12/31/23: * Blood sugars labile yesterday w/ hypoglycemia noted at dinner-time * Novolog was loosened in anticipation of this, basal insulin held at HS * Fasting blood sugar of 92 mg/dL so will continue with conservative basal dose * Significant elevation at lunch to > 300 mg/dL, but will remain conservative given low yesterday 12/30/23: * HS is a 73 year old female who presented to ED early this morning w/ caregiver. Patient's clinical status has significantly changed per caregivers. * Patient w/ abdominal/back pain, nausea/vomiting, and increased weakness. * Found to be in acute renal failure on top of chronic kidney disease (hyperkalemic in ED, given IV insulin) * Blood sugar on presentation >300 mg/dL * Received basal, SC bolus, and IV dose of insulin * Originally NPO, now ordered diet PLAN FOR INPATIENT GLYCEMIC CONTROL: * Basal insulin * Lantus 5 units SC daily * Bolus insulin * NovoLog per scale ACHS or Q6hrs while NPO * Goal Range: Low 120 mg/dL - High 150 mg/dL * Correction Factor: 40 mg/dL/unit * Nutritional / Prandial insulin per carb ratio of 1 unit per 13 grams CHO consumed
[2023-12-31] MEDS: DICLOFENAC SOD 1% GEL 100 GM TUBE EXT SCH (14:20)
--- NOTE | 2023-12-31 14:30 | Hospitalist Progress Note ---
Date of Service December 31, 2023 Assessment & Plan (1) ARF (acute renal failure): Plan: 73-year-old lady with chronic systolic heart failure secondary to ischemic cardiomyopathy [15 to 20%, TTE 2022] status post ICD, CAD, PAD, insulin requiring T2DM, JEREMIE, HTN, HLD, CKD [baseline creatinine 1.7], chronic pancytopenia [baseline hemoglobin 10], mild dementia, ambulatory dysfunction who presented with sudden onset achy abdominal pain, back pain, nausea and vomiting symptoms since 1 day ago PHYSICIAN [facility]IST[facility] PSY[facility]. Nausea and vomiting followed by junky cough symptoms, possible aspiration as per son. Patient noted to be somewhat more confused than usual as per son. She is being managed for the following: Possible aspiration pneumonitis: Admitting CTAP s/o infectious bronchial wall thickening w/ rt pleural effusion. Procal elevated. Speech evaled, appreciate recs. c/w ampicillin 12/29. c/w probiotic. follow admitting blood culture. Hyperkalemia/Hyponatremia/CORBY over CKD stage III: Admitting Na 132, K 4.5 --> 5.2, Cr 2.56. Baseline Cr around 1.7. Pt w/ advanced heart failure. Nephro on board, hold ivf , hold diuresis. Appreciate recs. labs in AM. Metabolic encephalopathy: Secondary to above. CT head with no acute finding. Expect to improve with improvement in underlying condition. Continue to follow. Hold neuropsychotropic's. Troponin elevation: in the setting of kidney dysfunction. Pt w/ no chest pain. EKG w/ no acute ST or T changes. c/w telemetry. T11 compression deformity: Patient came in with back pain, CTAP suggestive of T11 fracture. Vitamin D level wnl, orthospine consult - pending eval, PT/OT after orthospine evaluation. Oxycodone and voltaren gel added for pain mx. HTN, ho: BP meds on hold due to low BP, assess in AM resume as able. Other chronic medical conditions: Continue with/resume home meds as and when able. chronic systolic heart failure secondary to ischemic cardiomyopathy (15-20%, TTE 2022) status post ICD, stable. CAD/PAD as per records valvular heart disease (moderate to severe MR/TR, trace AR) hyperlipidemia, on statin Rx DM2 insulin requiring, patient hyperglycemic, suboptimal control as of recent hemoglobin A1c of 7.7 last October 2023 Chronic pancytopenia, hemoglobin slightly lower than baseline possibly from intermittent bleeding LE wounds as per son mild dementia PT OT eval once orthospine eval DVT prophylaxis. TEDS, RE Thrombocytopenia, SCDs contraindicated with history PAD DNR Patient son Mr. Yousuf Ribera, contact #[phone]. Text document was generated using [employer] voice recognition software. It may contain grammatical or spelling errors. Kindly contact undersigned for clarification of any documentation item in question. Admission and Anticipated Discharge Date Admission Date: December 30, 2023 Subjective Patient was seen and examined at bedside. Patient was lying in bed, on room air, NAD. Patient reports thoracic back pain not being controlled, will increase pain medication regimen. Patient denies fever/cough/chest pain/palpitation. Patient reports eating okay and moving bowels okay. Physical Exam Physical Exam: GENERAL: alert awake, no respiratory distress SKIN: Pallor, warm HEENT: Pale palpebral conjunctivae, no ptosis, moist buccal mucosa NECK : Supple, no tenderness CHEST : CTA, no tenderness HEART : RRR, systolic murmur ABDOMEN: Some distention, no epigastric tenderness EXTREMITIES : Bilateral LE discoloration with scabbed pedal wounds NEUROLOGIC : no facial asymmetry, gait and stance not assessed No spine tenderness on palpation. Results & Data Results & Data Vital Signs (Past 12 Hours) Vital Signs Temp Pulse Resp BP BP Pulse Ox O2 Del Method 12/31/23 13:39 36.8 C 74 18 93/53 L 96 Room Air 12/31/23 11:14 36.8 C 74 19 109/62 97 Room Air 12/31/23 07:21 36.9 C 72 18 141/68 H 95 Room Air
--- OUTSIDE RECORDS SUMMARY | 2023-12-31 15:22 | External Medical Summary | Summary of Care ---
Author Name Unknown Organization [facility] [address] [address] Phone [phone] Care Team Providers Care Rollway Worker Name Role Phone Melissa Hand MD Primary Care Prov ider Reason for Visit * Reason Comments eRx-Medication Refill Encounter Details Date Type Department Care Team (Late st Contact Info) Description 12/29/2023 Refill Family Medicine [address] [phone] Melissa Hand MD [address] [place] [address] [place] [id number] Allergies Active Allergy Reactions Criticality Noted Date Comments Lisinopril Cough Low 04/25/2020 High potassium documented as of this encounter (statuses as of 12/30/2023) Medications Medication Sig Dispensed Refills Start Date [...] per day 200 Each 3 3 Active Trulicity 1.5 MG/0.5ML Subcutaneous Solution Pen-injector [...] failure, stage 4 (severe) ([facility]) Take 2 Tablets by mouth in the morning. 90 Tablet 3 4 Active Metoprolol Succinate ER 50 MG Oral Tablet Extended Release 24 Hour (toPROL XL)Indications:Chr onic systolic congestive heart failure ([facility]) TAKE ONE TABLET BY MOUTH IN [...] ns:Recurrent major depressive disorder, in full remission ([facility]),Poor appetite TAKE ONE TABLET BY MOUTH AT BEDTIME 30 Tablet 5 4 Active Basaglar KwikPen 100 UNIT/ML Subcutaneous Solution Pen-injector (Insulin Glargine Solostar) inject 15 units under the skin at bedtime 15 mL 1 4 Active Basaglar KwikPen 100 UNIT/ML Subcutaneous Solution Pen-injector (Insulin Glargine Solostar) inject 15 units under the skin at bedtime 15 mL 1 4 12/30/19 24 Discontinued documented as of this encounter (statuses as of 12/30/2023) Active Problems Problem Noted Date Diagnosed Date [...] as of this encounter (statuses as of 12/30/2023) Resolved Problems Problem Noted Date Diagnosed Date Resolved Date Pancytopenia 01/19/2022 05/18/2022 Hyperparathyroidism 09/19/2021 05/18/19 Thrombocytopenia 07/26/2020 05/18/2022 Mild dementia 09/25/2019 05/18/2022 [...] as of this encounter (statuses as of 12/30/2023) Immunizations Name Administration Dates Next Due Influenza, Whole Virus 01/16/2013,04/20/2011 Pneumococcal Conjugate Vacc, 13 Valent (Prevnar) 03/10/2019 Pneumococcal Conjugate Vacci ne, 20-valent ([id number]) 09/19/2021 Pneumococcal Polysaccharide PPV23 (Pneumovax) 09/08/2015 Season [...] encounter Miscellaneous Notes * Telephone Encounter - Cheryl Gonzalez, [facility] - 12/30/2023 4:08 PM EDTSigned Prescriptions: Disp Refills Basaglar KwikPen 100 UNIT/ML Subcutaneous *15 mL 1 Sig: inject 15 units under the skin at bedtimeAuthorizing Provider: MELISSA HAND User: CHERYL GONZALEZ documented in this encounter Plan of Treatment Upcoming Encounters Date Type Department Care Team (Late st Contact Info) Description 01/03/2024 1:00 PM EDT Office Visit Family Medicine [address] [place] [phone] Mony Reid [address] [place] [address] 01/17/2024 10:00 AM EDT Office Visit Hepatology, [facility] [address] [place] [id number] Jaclyn Jay MD [address] [place] [address] 01/24/2024 9:30 AM EDT Cardiac Studies Cardiology, [facility] [address] [place] [address] Natanael Cast [facility] [address] [place] [id number] 02/18/2024 2:45 PM EST Office Visit Hematology/Oncology [facility] [address] [facility] [place] [phone] Blayne Caruso MD [address] [place] [place] [address] 03/09/2024 3:45 PM EST Office Visit Urology, [facility] [address] [facility] [place] [address] Zbigniew Holder MD [address] [place] [address] 03/16/2024 8:00 AM EST Office Visit Family Medicine [address] [place] [phone] Melissa Hand MD [address] [place] [address] [place] [address] 06/09/2024 2:20 PM EST Office Visit Nephrology [address] [place] [address] Nancy Shahid MD [address] [facility] [place] [address] 09/09/2024 1:20 PM EDT Office Visit Dermatology [address] [place] [address] Gaby Pitt PA-C [address] [place] [address] [place] [id number] Health Maintenance Due Date Last Done Comments [...] 07/17/2023, Additional history exists HbA1c 04/23/2024 10/22/2023, 11/2023, 11/08/2022, Additional history exists PTH 06/21/2024 06/22/2023, 05/2022, 02/22/2022, Additional history exists Hgb 07/23/2024 [...] Documents on File Type Date Recorded 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
[2023-12-31] MEDS: oxyCODONE HCL IR 5 MG TAB (IMMEDIATE RELEASE) PO PRN (18:12)
[2023-12-31] MEDS: MIRTAZAPINE TAB 15 MG TAB PO SCH (20:09)
--- NOTE | 2023-12-31 21:06 | Electrocardiogram Report ---
Test Reason : Blood Pressure : */* mmHG Vent. Rate : 88 BPM Atrial Rate : 88 BPM P-R Int : 232 ms QRS Dur : 106 ms QT Int : 398 ms P-R-T Axes : 88 -39 234 degrees QTcB Int : 481 ms Sinus rhythm with 1st degree A-V block Left axis deviation Left ventricular hypertrophy ( Kwesi product , Romhilt-Verde ) Prolonged QT Abnormal ECG When compared with ECG of 05-Jul-2023 11:11, NE interval has increased Criteria for Septal infarct are no longer Present Confirmed by Eder Hopson ([id number]) on 12/31/2023 9:06:09 PM Referred By: REFERRED SELF Confirmed By: Eder Hopson
[2024-01-01 06:35] LABS: Hematocrit (blood only) 27.3 % (37.0-47.0); Hemoglobin 8.8 g/dl (12.0-16.0); Mean Corpuscular Hgb Conc 32.2 g/dL (32.0-36.0); Mean Corpuscular Volume 102.2 fL (80.0-100.0); Platelet Count 51 K/uL (130-400); RDW Coefficient of Variation 16.4 % (11.5-14.5); RDW Standard Deviation 62.1 fL (36.4-46.3); Red Blood Count 2.67 M/uL (4.20-5.40)
[2024-01-01 07:02] LABS: Calcium 8.4 mg/dl (8.6-10.3); Creatinine Clr Calc Pharmacy 21.2 ml/min; Est GFR (African American) 25.9 ml/min; Est GFR (Non-African American) 22.4 ml/min; Magnesium 2.1 mg/dl (1.7-2.4); Phosphorus 4.2 mg/dl (2.5-4.9); Potassium 4.2 mmol/L (3.5-5.1)
[2024-01-01] MEDS: CHOLECALCIFEROL 25 MCG (1000 UNITS) TAB PO SCH (08:51)
--- NOTE | 2024-01-01 09:32 | Orthopedic Consultation ---
Date of Service January 01, 2024 History of Present Illness Reason for Consultation: T11 compression fracture, low back pain. Requesting Physician: . Attending Physician: Ermelinda Guan MD 73-year-old female presenting to the emergency department from home accompanied by her son. Patient has a history of dementia as well as several other medical conditions. Patient lives with son and daughter who are primary caregivers and state the patient has had a significant change in the past few days. Patient has had several episodes of vomiting. She typically is able to answer most questions and ambulate with a walker. The patient does not have any strength, and is very weak. No distinct fevers reported. She is not eating well. Patient has had symptoms like this in the past and required rehab hospital stays. Exam reveals the patient indicate pain more in the mid lumbar thoracolumbar region, she has appropriate strength though for toe and ankle plantarflexion dorsiflexion, negative straight leg raise bilaterally. Knee extension flexion strength was somewhat compromised due to back pain on exertion but she was able to accomplish this task along with hip flexion. CT abd pelvis wo con December 30, 2023 CLINICAL HISTORY: abd/back pain TECHNIQUE: Helical axial images of the abdomen and pelvis were obtained. Automated dose lowering techniques and/or adjustment according to patient size were utilized for this exam. This exam was performed without intravenous contrast. COMPARISON: Comparison is made to CT abdomen pelvis 07/05/2023 FINDINGS: Lower chest: Bronchial wall thickening and right pleural effusion are seen. Cardiomegaly is seen with biatrial enlargement. Liver: Unremarkable. No focal lesions are seen. Gallbladder and biliary tree: No calcified gallstones. Normal caliber wall. No intra- or extrahepatic biliary ductal dilation. Pancreas: Unremarkable, no focal lesions. Spleen: Unremarkable. Adrenals: Thickening of the adrenal glands is seen. Kidneys and ureters: Unremarkable. Bladder: Diffuse homogeneous wall thickening is seen. Reproductive organs: Unremarkable. Bowel: Incidental note is made of a prominent rectal stool ball without features of inspissation. Lymph nodes Retroperitoneal: Unremarkable. Pelvic: Unremarkable. Mesenteric: Unremarkable. Peritoneum: Normal. Vessels: Atherosclerotic calcifications are seen. Abdominal wall: Unremarkable. Bones: Degenerative changes are seen. Anterior compression deformities are seen at T12 and T11. T11 compression deformity is new from prior exam. IMPRESSION: 1. Acute to subacute appearing T11 compression deformity in this patient with back pain. Otherwise no acute intra-abdominal abnormalities are seen. Chronic changes as above. 2. Cardiomegaly and small right pleural effusion. Bronchial wall thickening is compatible with infectious/inflammatory airways disease. Review of CT scan of the abdomen and pelvis performed on December 30, 2023 at [facility], this my separate interpretation, this reveals the patient to have what appears to be a prior chronic superior endplate compression fracture of T12, now with 1 at T11 both approximately about the same with 20 to 30% loss of height. Impression: New development of T11 compression fracture cephalad to prior T12 compression fracture chronic in nature, thoracolumbar pain. Plan: In talking with the patient, she feels that the pain has developed at least some point over the past month, but she does not recall a specific inciting event. I discussed with the patient the nature of the injury, specifically that she has 2 compression fractures 1 which I feel is healed the other one is at T11. I have recommended the patient supplement her care with a TLSO type brace to be worn when she is up and around, appropriate medications for pain and mobilization with physical therapy. Follow-up x-rays are recommended in the next 2 to 4 weeks. Allergies Allergy/AdvReac Type Severity Reaction Status Date / Time lisinopril AdvReac Intermediate Cough Verified 12/31/23 10:44 Home Medications Medication Instructions Recorded Confirmed Type aspirin 81 mg tablet,delayed 81 mg PO DAILY 12/24/22 12/30/23 History release gabapentin 100 mg capsule 100 mg PO HS 12/24/22 12/30/23 History insulin glargine 100 unit/mL (3 15 unit subcut HS 12/24/22 12/30/23 History mL) subcutaneous pen (Basaglar KwikPen U-100 Insulin) sertraline 100 mg tablet 150 mg PO HS 12/24/22 12/30/23 History isosorbide dinitrate 10 mg tablet 10 mg PO BID@0700,1200 30 days #60 12/29/22 12/30/23 Rx tabs acetaminophen 325 mg tablet 650 mg PO Q4H PRN Pain 07/05/23 12/30/23 History (Tylenol) alprazolam 0.25 mg tablet 0.25 mg PO DAILY PRN Anxiety 07/05/23 12/30/23 History cholecalciferol (vitamin D3) 25 25 mcg PO DAILY 07/05/23 12/30/23 History mcg (1,000 unit) capsule (Vitamin D3) cranberry 500 mg capsule 500 mg PO DAILY 07/05/23 12/30/23 History dulaglutide 0.75 mg/0.5 mL 0.75 mg subcut WK 07/05/23 12/30/23 History subcutaneous pen injector (Trulicity) ketoconazole 2 % shampoo 1 ea topical DIRECTED PRN OPEN 07/05/23 12/30/23 History SORES ON HEAD, UNTIL HEALED ketoconazole 2 % topical cream 1 applic topical BID PRN FACIAL 07/05/23 12/30/23 History RASH WHEN FLARES nitroglycerin 0.4 mg sublingual 0.4 mg sublingual DIRECTED PRN 07/05/23 12/30/23 History tablet (Nitrostat) Chest Pain rosuvastatin 10 mg tablet 10 mg PO QAM 07/05/23 12/30/23 History torsemide 10 mg tablet 20 mg PO QAM 07/05/23 12/30/23 History metoprolol succinate 50 mg 50 mg PO BID 12/30/23 12/30/23 History tablet,extended release 24 hr mirtazapine 15 mg tablet 15 mg PO HS 12/30/23 12/30/23 History Past Med/Surg History Problem List (Updated 12/30/23 @ 22:41 by Jonah Styles PA-C) ARF (acute renal failure) (Acute) Thrombocytopenia (Acute) Acute exacerbation of congestive heart failure (Acute) Hypoxia (Acute) Recurrent UTI Cystocele UTI (urinary tract infection) Weakness (Acute) CHF (congestive heart failure) (Acute) SOB (shortness of breath) (Acute) Pedal edema (Acute) Pancytopenia (Acute) Acute on chronic systolic CHF (congestive heart failure) Acute UTI (Acute) Weakness (Acute) Contusion of hip (Acute) Ambulatory dysfunction (Acute) Weakness (Acute) Acute UTI (Acute) Falls frequently (Acute) Sensorineural hearing loss (SNHL) of both ears Encounter for pre-operative examination Arthritis (Chronic) Hypertension (Chronic) Ischemic cardiomyopathy (Chronic) Hypoxia (Acute) Elevated troponin (Acute) Pleural effusion (Acute) CKD (chronic kidney disease) (Acute) Elevated troponin I level Acute worsening of stage 4 chronic kidney disease DVT prophylaxis Thrombocytopenia (Acute) CHF (congestive heart failure) Chronic HFrEF (heart failure with reduced ejection fraction) AICD (automatic cardioverter/defibrillator) present (Chronic) 2018--meditronic @ [facility] Moderate mitral regurgitation (Chronic) Aortic stenosis (Chronic) Chronic systolic heart failure (Chronic) DM II (diabetes mellitus, type II), controlled (Chronic) GERD (gastroesophageal reflux disease) (Chronic) Anxiety and depression (Chronic) Anemia (Chronic) Hyperkalemia (Chronic) Hyperlipidemia LDL goal <70 (Chronic) Medical History Chronic renal disease, stage IV Pancytopenia Dementia Hypertension Surgical History History of open reduction and internal fixation (ORIF) procedure ankle fx---hardware in place History of bilateral cataract extraction History of tubal ligation History of appendectomy Status post cholecystectomy Family History Mother Family history of diabetes mellitus Brother Family history of diabetes mellitus Sister Family history of diabetes mellitus Other No family history of adverse response to anesthesia Social History Smoking Status: Unknown if ever smoked Second Hand Exposure: No; Do You Dip or Chew Tobacco: No; Tobacco Cessation Education Requested by Patient: No Hx Alcohol Use: No Hx Substance Use: No Preferred Language: Icelandic Communication Ability: Effective Rn Lpn Lvn Required: No Beliefs That Will Affect Care: None marital status: / Current Living Situation: Family Current Living Situation Comment: with daughter How many Children do You have: 3 Other Information That Helps Us Care for You: No Feels Safe at Home: Yes Safety Concerns: Feels Safe At This Time Assistive Devices: Cane and Walker Review of Systems All systems reviewed & are unremarkable except as noted in HPI & below. Physical Exam . Results & Data Results & Data Laboratory Results . Diagnostic Findings . PG Care Time/CCT Total # of Minutes Spent Total Time Spent with Patient: Total time spent is greater than 50% in coordination of care (as documented) at patient's floor/unit and/or counseling patient: Coding Level of Care Code 23692 IN/OBS CONSULT LVL 3,45M
[2024-01-01] MEDS ORDERED: LANTUS PER UNIT CHARGE SQ SCH (12:30)
--- NOTE | 2024-01-01 13:47 | Nephrology Progress Note ---
Date of Service January 01, 2024 Assessment & Plan (1) Acute worsening of stage 4 chronic kidney disease: Plan: slightly /slowly improving stage 4 CKD non oliguric. baseline creatinine historically high ones. nonoliguric stage 1 CORBY on CKD; came in creat 2.6, improved today to 2.1 w/ supportive care. likely ischemic ATN in setting of acute HF. no urine studies to evaluate currently. no obstruction on imaging. no indication to discuss dialysis at this time and a poor candidate should need arise given dementia, advanced HF, relative hypotension. UA w/o bacteria and w/ some mild inflammation -bmp daily -remains w/o indication for NS at this time; would cont to hold diuretics as well -hyperkalemia from admission resolved w/ medical mgt; no K binders on or indicated currently -continue to avoid IV contrast unless life/limb saving -no emergent dialysis indication >hgb down to 8.9 today from 9.7 yesterday > possible mild dilution; observe for now; pancytopenia in past but not today d/t WBC wnl > monitor Will sign off Nephro d/c recs -resume diuretics when taking po reliably and assuming that pt creatinine stays steady >> but would resume at lower 10 mg daily torsemide dose rather than 20 mg -recommend pt get bmp at PCP f/u -d/c on 1.5L FR and low Na diet, EZ to chew -pls have d/c coordinator ensure pt has routine neph f/u set up w/ me per last neph OV note (2) Acute on chronic systolic CHF (congestive heart failure): Plan: volume overloaded; -cont carb consistent / EZ to chew diet -cont FR 1.5 L >>no standing diuretic for now but can start one if resp status declines; at home on torsemide 20 mg daily Admission and Anticipated Discharge Date Admission Date: December 30, 2023 Subjective seen on late afternoon rounds; tearful about [place], back pain, butt pain, N; just had phenergan and oxycodone per nurse; pt states she's hardly eating d/t N and endorses some photosensitivity Review of Systems 2 Review of Systems: All systems reviewed & are unremarkable except as noted in Subjective Physical Exam 2 Constitutional: well developed, + acute distress (slight; anxious/tearful), + frail appearing and cooperative Respiratory: normal respiratory effort Auscultation: + diminished lung sounds Cardiovascular: Rate/Rhythm: regular rate and regular rhythm Heart Sounds: + murmur Extremities: + edema (trace) Gastrointestinal (Abdomen): Inspection/Auscultation: normal bowel sounds P ercussion/Palpation: abdomen soft; abdomen nontender Musculoskeletal: Extremities: strength 5/5 throughout Skin: no rashes, warm and dry Results & Data Vital Signs (Past 12 Hours) Vital Signs Temp Pulse Pulse Resp BP Pulse Ox O2 Del Method 01/01/24 11:33 36.7 C 74 17 124/65 94 Room Air 01/01/24 08:29 36.5 C 60 17 102/58 L 94 Room Air 01/01/24 05:40 72 01/01/24 03:38 36.3 C L 68 17 129/76 93 Room Air Laboratory Results 01/01/24 05:54 01/01/24 05:54
--- NOTE | 2024-01-01 13:53 | Pharmacy Report ---
Pharmacy Glycemic Short Note 2 - Date of Service January 01, 2024 - Glycemic Short BSG Results (Last 24 hours): 12/31/23 12/31/23 12/31/23 16:53 16:54 20:10 Glucose POC Glucose 310 H* 284 H 192 H 01/01/24 01/01/24 01/01/24 05:54 08:11 12:16 Glucose 98 POC Glucose 208 H 239 H OUTPATIENT ANTIDIABETIC REGIMEN: * Basaglar 15 units SC HS * Trulicity HbA1c: 7.5% (12/25/22), recheck ordered for AM ASSESSMENT: 01/01/24: * Patient received total 21 units of insulin yesterday; 5 units of basal and 16 units bolus. * Fasting BSG today was 98 mg/dl. Will continue with 5 units of basal but moved the dose to dinner time today to try to get to bedtime eventually- same as patient's home schedule. * Since post prandial BSGs elevated, tightened Novolog parameters. 12/31/23: * Blood sugars labile yesterday w/ hypoglycemia noted at dinner-time * Novolog was loosened in anticipation of this, basal insulin held at HS * Fasting blood sugar of 92 mg/dL so will continue with conservative basal dose * Significant elevation at lunch to > 300 mg/dL, but will remain conservative given low yesterday 12/30/23: * HS is a 73 year old female who presented to ED early this morning w/ caregiver. Patient's clinical status has significantly changed per caregivers. * Patient w/ abdominal/back pain, nausea/vomiting, and increased weakness. * Found to be in acute renal failure on top of chronic kidney disease (hyperkalemic in ED, given IV insulin) * Blood sugar on presentation >300 mg/dL * Received basal, SC bolus, and IV dose of insulin * Originally NPO, now ordered diet PLAN FOR INPATIENT GLYCEMIC CONTROL: * Basal insulin * Lantus 5 units SC daily * Bolus insulin * NovoLog per scale ACHS or Q6hrs while NPO * Goal Range: Low 120 mg/dL - High 150 mg/dL * Correction Factor: 30 mg/dL/unit * Nutritional / Prandial insulin per carb ratio of 1 unit per 10 grams CHO consumed
--- NOTE | 2024-01-01 14:46 | Hospitalist Progress Note ---
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 Nausea and vomiting followed by junky cough symptoms, possible aspiration as per son. Patient noted to be somewhat more confused than usual as per son. She is being managed for the following: Possible aspiration pneumonitis: Admitting CTAP s/o infectious bronchial wall thickening w/ rt pleural effusion. Procal elevated. Speech evaled, appreciate recs. c/w ampicillin 12/29. c/w probiotic. follow admitting blood culture - [id number]. Hyperkalemia/Hyponatremia/CORBY over CKD stage III: Admitting Na 132, K 4.5 --> 5.2, Cr 2.56. Baseline Cr around 1.7. Pt w/ advanced heart failure. Nephro on board, hold ivf , hold diuresis. Appreciate recs. Cr downtrending 2.12 today. labs in AM. Metabolic encephalopathy: Secondary to above. CT head with no acute finding. Expect to improve with improvement in underlying condition. Continue to follow. Hold neuropsychotropic's. Troponin elevation: in the setting of kidney dysfunction. Pt w/ no chest pain. EKG w/ no acute ST or T changes. c/w telemetry. T11 compression deformity: Patient came in with back pain, CTAP suggestive of T11 fracture. Vitamin D level wnl, d/w orthospine --TLSO brace. Orthotics consult placed. Ok for PT/OT. c/w Oxycodone and voltaren gel for pain mx. HTN, ho: BP meds on hold due to low BP, assess daily in AM to resume as able. Other chronic medical conditions: Continue with/resume home meds as and when able. chronic systolic heart failure secondary to ischemic cardiomyopathy (15-20%, TTE 2022) status post ICD, stable. CAD/PAD as per records valvular heart disease (moderate to severe MR/TR, trace AR) hyperlipidemia, on statin Rx DM2 insulin requiring, patient hyperglycemic, suboptimal control as of recent hemoglobin A1c of 7.7 last October 2023 Chronic pancytopenia, hemoglobin slightly lower than baseline possibly from intermittent bleeding LE wounds as per son mild dementia PT OT eval once orthospine eval DVT prophylaxis. TEDS, RE Thrombocytopenia, SCDs contraindicated with history PAD DNR Patient son Mr. Yousuf Ribera, contact #[phone]. Text document was generated using [employer] voice recognition software. It may contain grammatical or spelling errors. Kindly contact undersigned for clarification of any documentation item in question. Admission and Anticipated Discharge Date Admission Date: December 30, 2023 Subjective Patient was seen and examined at bedside. Patient was lying in bed, on room air, NAD. Patient reports thoracic back pain better controlled today, c/w pain medication regimen and PT/OT. Patient denies fever/cough/chest pain/palpitation. Patient reports eating okay and moving bowels okay. Physical Exam Physical Exam: GENERAL: alert awake, no respiratory distress SKIN: Pallor, warm HEENT: Pale palpebral conjunctivae, no ptosis, moist buccal mucosa NECK : Supple, no tenderness CHEST : CTA, no tenderness HEART : RRR, systolic murmur ABDOMEN: Some distention, no epigastric tenderness EXTREMITIES : Bilateral LE discoloration with scabbed pedal wounds NEUROLOGIC : no facial asymmetry, gait and stance not assessed No spine tenderness on palpation. Results & Data Results & Data Vital Signs (Past 12 Hours) Vital Signs Temp Pulse Pulse Resp BP Pulse Ox O2 Del Method 01/01/24 13:00 71 01/01/24 11:33 36.7 C 74 17 124/65 94 Room Air 01/01/24 08:29 36.5 C 60 17 102/58 L 94 Room Air 01/01/24 05:40 72 01/01/24 03:38 36.3 C L 68 17 129/76 93 Room Air
[2024-01-01] MEDS: PROMETHAZINE 6.25 MG/50.25 ML BAG IV PRN (17:26)
[2024-01-01] MEDS: LANTUS PER UNIT CHARGE SQ SCH (18:14)
--- NOTE | 2024-01-02 04:55 | Communication Note ---
Date of Service: January 02, 2024 Patient with painless vaginal bleeding as per RN. History postmenopausal bleeding as per outpatient BUSINESS LIAISON MANAGER note from 2022. Hold aspirin for now [facility] BUSINESS LIAISON MANAGER consult in a.m.
[2024-01-02 07:09] LABS: Hematocrit (blood only) 28.4 % (37.0-47.0); Hemoglobin 9.1 g/dl (12.0-16.0); Mean Corpuscular Volume 102.9 fL (80.0-100.0); Mean Platelet Volume 11.5 fL (9.4-12.4); Platelet Count 62 K/uL (130-400); RDW Coefficient of Variation 16.4 % (11.5-14.5); RDW Standard Deviation 62.2 fL (36.4-46.3); Red Blood Count 2.76 M/uL (4.20-5.40); White Blood Count 3.21 K/ul (4.8-10.8)
[2024-01-02 08:57] LABS: Calcium 8.8 mg/dl (8.6-10.3); Potassium 4.6 mmol/L (3.5-5.1)
[2024-01-02 09:03] LABS: BUN Creatinine Ratio 40.6 (10-20); Creatinine Clr Calc Pharmacy 22.2 ml/min; Est GFR (African American) 27.5 ml/min; Est GFR (Non-African American) 23.7 ml/min
--- NOTE | 2024-01-02 10:10 | Ultrasound Report ---
US pelvic complete CLINICAL HISTORY: vaginal bleeding TECHNIQUE: Real-time sonographic images of the pelvic contents were obtained with transabdominal tech nique. Comparison: Comparison is made to CT abdomen pelvis 12/30/2023 FINDINGS: The uterus measures 7.2 x 2.3 x 3.4 cm. The endometrial cavity echo stripe measures 0.3 cm in thickne ss. Calcifications are seen in the wall. Bilateral ovaries are not seen due to overlying bowel. There was no fluid in the cul-de-sac. IMPRESSION: Ovaries are not visualized. The uterus is unremarkable without endometrial thickening. ACT 112: Negative or not required by law. Electronically signed by: Gerber Ramos M.D. 01/02/2024 10:08 AM
--- NOTE | 2024-01-02 10:11 | CT Scan Report ---
CT head/brain wo con CLINICAL HISTORY: increasing headache from yesterday, ? sinus diseas Technique: Contiguous axial CT images of the head were acquired from the base of the skull to the sofía gudelia without intravenous contrast administration. Images were viewed in brain, subdural and bone windo ws. Automated dose lowering techniques and/or adjustment according to patient size were utilized for this exam. Comparison: Comparison is made to CT head 12/30/2023 Findings: Areas of decreased attenuation are present in the periventricular and subcortical white matter bilate rally consistent with small vessel ischemic disease. Generalized cerebral atrophy with commensurate e nlargement of the ventricles, sulci, and cisterns is also present. There is no acute intracranial hem orrhage or evidence of acute territorial infarction. No shift of the midline structures, mass effect, or extra-axial abnormalities are shown. Atherosclerotic calcifications are present in the intracran ial segments of the internal carotid arteries. Imaged portions of the paranasal sinuses and mastoid air cells are clear. The orbits appear normal. There are no acute fractures of the calvaria or scalp swelling. Impression: No acute abnormality and in particular no evidence of sinus disease. If there is clinical concern, de dicated sinus CT can be performed. ACT 112: Negative or not required by law. Electronically signed by: Gerber Ramos M.D. 01/02/2024 10:09 AM
[2024-01-02] MEDS: PANTOprazole 40 MG TAB PO SCH (11:04)
[2024-01-02] MEDS ORDERED: hydrOXYzine HCl 25 MG TAB PO PRN (12:30)
--- NOTE | 2024-01-02 13:47 | Pharmacy Report ---
Pharmacy Glycemic Short Note 2 - Date of Service January 02, 2024 - Glycemic Short BSG Results (Last 24 hours): 01/01/24 01/01/24 01/02/24 17:09 19:43 06:22 Glucose 166 H POC Glucose 137 H 206 H 01/02/24 01/02/24 01/02/24 08:08 11:54 11:55 Glucose POC Glucose 210 H 367 H* 348 H* OUTPATIENT ANTIDIABETIC REGIMEN: * Basaglar 15 units SC HS * Trulicity HbA1c: 7.5% (12/25/22), recheck ordered for AM ASSESSMENT: 01/02/24: * Patient received a total of 23 units of insulin yesterday (5 units of basal and 18 units of bolus). * BSGs have been running on the higher end the last 24 hours with a fasting BSG today of 210. Increased the Basal insulin to 10 units at bedtime starting tonight, and will potentially increase to 15units starting tomorrow night (to match home basal needs). * Lunch BSG at 367mg/dL, however she was off the unit for testing and AM insulin was not given until 1044. An additional poc BSG was ordered for this afternoon at 1430 incase additional bolus coverage is needed. * Bolus insulin parameters kept the same for now. * Patient continues on Unasyn for possible aspiration pneumonitis. 01/01/24: * Patient received total 21 units of insulin yesterday; 5 units of basal and 16 units bolus. * Fasting BSG today was 98 mg/dl. Will continue with 5 units of basal but moved the dose to dinner time today to try to get to bedtime eventually- same as patient's home schedule. * Since post prandial BSGs elevated, tightened Novolog parameters. 12/31/23: * Blood sugars labile yesterday w/ hypoglycemia noted at dinner-time * Novolog was loosened in anticipation of this, basal insulin held at HS * Fasting blood sugar of 92 mg/dL so will continue with conservative basal dose * Significant elevation at lunch to > 300 mg/dL, but will remain conservative given low yesterday 12/30/23: * HS is a 73 year old female who presented to ED early this morning w/ caregiver. Patient's clinical status has significantly changed per caregivers. * Patient w/ abdominal/back pain, nausea/vomiting, and increased weakness. * Found to be in acute renal failure on top of chronic kidney disease (hyperkalemic in ED, given IV insulin) * Blood sugar on presentation >300 mg/dL * Received basal, SC bolus, and IV dose of insulin * Originally NPO, now ordered diet PLAN FOR INPATIENT GLYCEMIC CONTROL: * Basal insulin * Lantus 10 units SC at bedtime * Bolus insulin * NovoLog per scale ACHS or Q6hrs while NPO * Goal Range: Low 120 mg/dL - High 150 mg/dL * Correction Factor: 30 mg/dL/unit * Nutritional / Prandial insulin per carb ratio of 1 unit per 10 grams CHO consumed
[2024-01-02] MEDS ORDERED: ALPRAZolam 0.25 MG TABLET PO PRN (14:05)
--- NOTE | 2024-01-02 14:09 | Hospitalist Progress Note ---
Date of Service January 02, 2024 Assessment & Plan (1) ARF (acute renal failure): Plan: 73-year-old lady with chronic systolic heart failure secondary to ischemic cardiomyopathy [15 to 20%, TTE 2022] status post ICD, CAD, PAD, insulin requiring T2DM, JEREMIE, HTN, HLD, CKD [baseline creatinine 1.7], chronic pancytopenia [baseline hemoglobin 10], mild dementia, ambulatory dysfunction who presented with sudden onset achy abdominal pain, back pain, nausea and vomiting symptoms since 1 day ago [employer]ST. Nausea and vomiting followed by junky cough symptoms, possible aspiration as per son. Patient noted to be somewhat more confused than usual as per son. She is being managed for the following: Possible aspiration pneumonitis: Admitting CTAP s/o infectious bronchial wall thickening w/ rt pleural effusion. Procal elevated. Speech evaled, appreciate recs. c/w ampicillin 12/29. c/w probiotic. follow admitting blood culture - NG48H. Hyperkalemia/Hyponatremia/CORBY over CKD stage III: Admitting Na 132, K 4.5 --> 5.2, Cr 2.56. Baseline Cr around 1.7. Pt w/ advanced heart failure. Nephro evaled, dc recs - torsemide at 10 mg daily, FR 1.5L, Low Na diet, Nephro f/u. Cr downtrending 2.12 today. labs in AM. Metabolic encephalopathy: Secondary to above. CT head with no acute finding. Mentation seems to be improving, resume home meds gradually. Troponin elevation: in the setting of kidney dysfunction. Pt w/ no chest pain. EKG w/ no acute ST or T changes. c/w telemetry. T11 compression deformity: Patient came in with back pain, CTAP suggestive of T11 fracture. Vitamin D level wnl, d/w orthospine --TLSO brace. Orthotics consult placed. Ok for PT/OT. c/w Oxycodone and voltaren gel for pain mx. PV bleed: Noted evening of 12/31 per nursing. aspirin held, Pelvic USG - Ovaries are not visualized. The uterus is unremarkable without endometrial thickening. Gynecology consult - await recs. HTN, ho: BP meds on hold due to low BP, assess daily in AM to resume as able. Other chronic medical conditions: Continue with/resume home meds as and when able. chronic systolic heart failure secondary to ischemic cardiomyopathy (15-20%, TTE 2022) status post ICD, stable. CAD/PAD as per records valvular heart disease (moderate to severe MR/TR, trace AR) hyperlipidemia, on statin Rx DM2 insulin requiring, patient hyperglycemic, suboptimal control as of recent hemoglobin A1c of 7.7 last October 2023 Chronic pancytopenia, hemoglobin slightly lower than baseline possibly from intermittent bleeding LE wounds as per son mild dementia, confused occasionally at home, but is aware she is at home. PT OT eval once orthospine eval DVT prophylaxis. TEDS, RE Thrombocytopenia, SCDs contraindicated with history PAD. DNR Patient son Mr. Yousuf Ribera, contact #[phone]. updated 01/01, wants to take her home w/ health. about 8 min spent on phone call. Text document was generated using [employer] voice recognition software. It may contain grammatical or spelling errors. Kindly contact undersigned for clarification of any documentation item in question. Admission and Anticipated Discharge Date Admission Date: December 30, 2023 Subjective Patient was seen and examined at bedside. Patient was lying in bed, on room air, reports generalized body pain, reported headache is new, CT scan Head repeated w/ no acute findings. Pt reports back pain, TLSO brace w/ activity and c/w PT/OT. c/w pain meds. Patient denies fever/cough/chest pain/palpitation. Per RN pt's appetite is low, had PV bleed last evening and gynecology consult has been placed. Physical Exam Physical Exam: GENERAL: alert awake, no respiratory distress SKIN: Pallor, warm HEENT: Pale palpebral conjunctivae, no ptosis, moist buccal mucosa NECK : Supple, no tenderness CHEST : CTA, no tenderness HEART : RRR, systolic murmur ABDOMEN: Some distention, no epigastric tenderness EXTREMITIES : Bilateral LE discoloration with scabbed pedal wounds NEUROLOGIC : no facial asymmetry, gait and stance not assessed No spine tenderness on palpation. Results & Data Results & Data Vital Signs (Past 12 Hours) Vital Signs Temp Pulse Pulse Resp BP Pulse Ox O2 Del Method 01/02/24 11:14 36.5 C 85 18 133/71 96 Room Air 01/02/24 08:15 Room Air 01/02/24 07:50 36.8 C 81 20 130/78 96 Room Air 01/02/24 07:43 80 01/02/24 04:33 36.9 C 91 H 16 137/72 94 Room Air
[2024-01-02] MEDS: INSULIN ASPART PER UNIT CHARGE SC ONE (15:41)
[2024-01-02] MEDS: oxyCODONE HCL IR 5 MG TAB (IMMEDIATE RELEASE) PO PRN (16:53)
--- NOTE | 2024-01-02 18:27 | Consultation ---
Date of Consultation January 02, 2024 Assessment & Plan (1) Postmenopausal bleeding: Patient is unlikely to have endometrial cancer with a uniform endometrial stripe of 0.3 cm. Due to the patient's poor physical condition. I would not recommend any further evaluation at this time. History of Present Illness Reason for Consultation: Vaginal bleeding Attending Physician: Ermelinda Guan MD History of Present Illness Patient is a 73-year-old 4 para 4. Patient is a very poor historian. Does not seem to be oriented. Patient has multiple medical problems including stage IV renal disease high blood pressure ischemic cardiac disease type 2 diabetes. Patient did have a transvaginal ultrasound which showed an endometrial stripe of 0.3 cm. With no irregularities. No fluid. Allergies Allergy/AdvReac Type Severity Reaction Status Date / Time lisinopril AdvReac Intermediate Cough Verified 12/31/23 10:44 Home Medications Medication Instructions Recorded Confirmed Type aspirin 81 mg tablet,delayed 81 mg PO DAILY 12/24/22 12/30/23 History release gabapentin 100 mg capsule 100 mg PO HS 12/24/22 12/30/23 History insulin glargine 100 unit/mL (3 15 unit subcut HS 12/24/22 12/30/23 History mL) subcutaneous pen (Basaglar KwikPen U-100 Insulin) sertraline 100 mg tablet 150 mg PO HS 12/24/22 12/30/23 History isosorbide dinitrate 10 mg tablet 10 mg PO BID@0700,1200 30 days #60 12/29/22 12/30/23 Rx tabs acetaminophen 325 mg tablet 650 mg PO Q4H PRN Pain 07/05/23 12/30/23 History (Tylenol) alprazolam 0.25 mg tablet 0.25 mg PO DAILY PRN Anxiety 07/05/23 12/30/23 History cholecalciferol (vitamin D3) 25 25 mcg PO DAILY 07/05/23 12/30/23 History mcg (1,000 unit) capsule (Vitamin D3) cranberry 500 mg capsule 500 mg PO DAILY 07/05/23 12/30/23 History dulaglutide 0.75 mg/0.5 mL 0.75 mg subcut WK 07/05/23 12/30/23 History subcutaneous pen injector (Trulicity) ketoconazole 2 % shampoo 1 ea topical DIRECTED PRN OPEN 07/05/23 12/30/23 History SORES ON HEAD, UNTIL HEALED ketoconazole 2 % topical cream 1 applic topical BID PRN FACIAL 07/05/23 12/30/23 History RASH WHEN FLARES nitroglycerin 0.4 mg sublingual 0.4 mg sublingual DIRECTED PRN 07/05/23 12/30/23 History tablet (Nitrostat) Chest Pain rosuvastatin 10 mg tablet 10 mg PO QAM 07/05/23 12/30/23 History torsemide 10 mg tablet 20 mg PO QAM 07/05/23 12/30/23 History metoprolol succinate 50 mg 50 mg PO BID 12/30/23 12/30/23 History tablet,extended release 24 hr mirtazapine 15 mg tablet 15 mg PO HS 12/30/23 12/30/23 History Patient History Medical History Chronic renal disease, stage IV Pancytopenia Dementia Hypertension Surgical History History of open reduction and internal fixation (ORIF) procedure ankle fx---hardware in place History of bilateral cataract extraction History of tubal ligation History of appendectomy Status post cholecystectomy Family History Mother Family history of diabetes mellitus Brother Family history of diabetes mellitus Sister Family history of diabetes mellitus Other No family history of adverse response to anesthesia Social History Smoking Status: Unknown if ever smoked Second Hand Exposure: No; Do You Dip or Chew Tobacco: No; Tobacco Cessation Education Requested by Patient: No Hx Alcohol Use: No Hx Substance Use: No Preferred Language: Romanian Communication Ability: Effective Applications Intern Required: No Beliefs That Will Affect Care: None marital status: / Current Living Situation: Family Current Living Situation Comment: with daughter How many Children do You have: 3 Other Information That Helps Us Care for You: No Feels Safe at Home: Yes Safety Concerns: Feels Safe At This Time Assistive Devices: Cane and Walker Physical Exam Physical Exam: Physical exam revealed an elderly white female bed ridden a very limited mobility. Patient did not seem to be oriented. Was unable to obtain any significant history from the patient. Heart had a regular rhythm. Lungs were clear. Neck was supple. Abdomen revealed a midline incision well-healed. Lower extremities were flexed. There was no calf tenderness. Results & Data Vital Signs (Past 12 Hours) Vital Signs Temp Pulse Pulse Resp BP Pulse Ox O2 Del Method 01/02/24 16:19 36.7 C 82 20 131/71 96 Room Air 01/02/24 15:15 86 01/02/24 11:14 36.5 C 85 18 133/71 96 Room Air 01/02/24 08:15 Room Air 01/02/24 07:50 36.8 C 81 20 130/78 96 Room Air 01/02/24 07:43 80
[2024-01-02] MEDS: GABAPENTIN 100 MG CAP PO SCH (20:12)
[2024-01-02] MEDS: LANTUS PER UNIT CHARGE SC SCH (21:27)
[2024-01-03 03:30] VITALS: RESP 18; O2SAT 95
[2024-01-03 07:15] VITALS: BP 122/68; TEMP 97.3
[2024-01-03 07:28] LABS: Hematocrit (blood only) 26.7 % (37.0-47.0); Hemoglobin 8.6 g/dl (12.0-16.0); Mean Corpuscular Hemoglobin 32.6 pg (25.0-34.0); Mean Corpuscular Hgb Conc 32.2 g/dL (32.0-36.0); Mean Corpuscular Volume 101.1 fL (80.0-100.0); Mean Platelet Volume 11.4 fL (9.4-12.4); Platelet Count 62 K/uL (130-400); RDW Coefficient of Variation 16.2 % (11.5-14.5); RDW Standard Deviation 59.8 fL (36.4-46.3); Red Blood Count 2.64 M/uL (4.20-5.40)
[2024-01-03 07:48] LABS: Calcium 8.5 mg/dl (8.6-10.3); Magnesium 2.1 mg/dl (1.7-2.4); Potassium 4.1 mmol/L (3.5-5.1)
[2024-01-03 08:48] LABS: BUN Creatinine Ratio 36.1 (10-20); Creatinine Clr Calc Pharmacy 21.7 ml/min; Est GFR (African American) 27.5 ml/min; Est GFR (Non-African American) 23.7 ml/min
--- NOTE | 2024-01-03 11:37 | Discharge Summary ---
Date of Service January 03, 2024 Admission HPI Per Admitting Provider History obtained from patient, family, and records. Limited history from patient secondary to dementia. Medical history significant for chronic systolic heart failure secondary to ischemic cardiomyopathy (15-20%, TTE 2022) status post ICD, CAD, PAD, valvular heart disease (moderate to severe MR/TR, trace AR), hypertension, hyperlipidemia, JEREMIE as per records, DM2 insulin requiring, CRI (baseline creatinine 1.7), chronic pancytopenia (baseline hemoglobin 10), mood disorder, mild dementia, ambulatory dysfunction Last confinement December 2022 for decompensated heart failure. Patient with sudden onset achy abdominal pain, back pain, nausea vomiting symptoms yesterday as per son. Patient complaining of headache. Denies chest pain, SOB. Junky cough symptoms from possible aspiration as per son. Patient somewhat more confused than usual as per son. Patient brought to the ER for evaluation. Medical History as above Surgical History : ICD, appendectomy, cataract surgeries, ankle surgery, BTL, cholecystectomy Family History : The DM, breast cancer, heart disease Personal/Social history : Non-smoker, no EtOH intake, lives with family Admission Exam Per Admitting Provider GENERAL: Disoriented, no respiratory distress SKIN: Pallor, warm HEENT: Pale palpebral conjunctivae, no ptosis, dry buccal mucosa NECK : Supple, no tenderness CHEST : CTA, no tenderness HEART : RRR, systolic murmur ABDOMEN: Some distention, minimal epigastric tenderness EXTREMITIES : Bilateral LE discoloration with scabbed pedal wounds NEUROLOGIC : Disoriented, no facial asymmetry, gait and stance not assessed Principal Diagnosis Possible aspiration pneumonitis Electrolyte abnormalities CORBY over CKD stage III Metabolic encephalopathy Troponin elevation T11 compression deformity PV bleed Discharge Exam GENERAL: alert awake, no respiratory distress SKIN: Pallor, warm HEENT: Pale palpebral conjunctivae, no ptosis, moist buccal mucosa NECK : Supple, no tenderness CHEST : CTA, no tenderness HEART : RRR, systolic murmur ABDOMEN: Some distention, no epigastric tenderness EXTREMITIES : Bilateral LE discoloration with scabbed pedal wounds NEUROLOGIC : no facial asymmetry, gait and stance not assessed No spine tenderness on palpation. Discharge Data Allergies Allergy/AdvReac Type Severity Reaction Status Date / Time lisinopril AdvReac Intermediate Cough Verified 12/31/23 10:44 Consultations 12/30/23 05:25 ED Decision to Admit Stat 12/30/23 12:01 Consult Nephrology Routine 12/30/23 12:06 Consult Orthopedic Spine Surgery Routine 01/02/24 06:56 Consult Gynecology Routine 01/02/24 17:05 Consult Behavioral Health Liaison Routine Ordered Studies 12/30/23 03:22 CT head/brain wo con Stat 12/30/23 06:20 CT abd pelvis wo con Stat 01/02/24 04:56 US pelvic complete Urgent 01/02/24 09:05 CT head/brain wo con Routine Hospital Course (1) ARF (acute renal failure): 73-year-old lady with chronic systolic heart failure secondary to ischemic cardiomyopathy [15 to 20%, TTE 2022] status post ICD, CAD, PAD, insulin requiring T2DM, JEREMIE, HTN, HLD, CKD [baseline creatinine 1.7], chronic pancytopenia [baseline hemoglobin 10], mild dementia, ambulatory dysfunction who presented with sudden onset achy abdominal pain, back pain, nausea and vomiting symptoms since 1 day ago [employer] PLUM[employer]. Nausea and vomiting followed by junky cough symptoms, possible aspiration as per son. Patient noted to be somewhat more confused than usual as per son. She wasmanaged for the following: Possible aspiration pneumonitis: Admitting CTAP s/o infectious bronchial wall thickening w/ rt pleural effusion. Procal elevated. Speech evaled, appreciate recs. c/w ampicillin 12/29. c/w probiotic. follow admitting blood culture - NG48H. to PO antibiotic on dc to complete the course. Hyperkalemia/Hyponatremia/CORBY over CKD stage III: Admitting Na 132, K 4.5 --> 5.2, Cr 2.56. Baseline Cr around 1.7. Pt w/ advanced heart failure. Nephro evaled, dc recs - torsemide at 10 mg daily, FR 1.5L, Low Na diet, Nephro f/u. Cr downtrending 2.02 today. labs in AM. Metabolic encephalopathy: Secondary to above. CT head with no acute finding. Mentation seems to be back to baseline per pt's son, c/w home meds. Troponin elevation: in the setting of kidney dysfunction. Pt w/ no chest pain. EKG w/ no acute ST or T changes. c/w telemetry. T11 compression deformity: Patient came in with back pain, CTAP suggestive of T11 fracture. Vitamin D level wnl, d/w orthospine --TLSO brace. Orthotics consult placed. Ok for PT/OT. c/w Oxycodone and voltaren gel for pain mx. f/u w/ orthospine and f/u back xr in 2-4 weeks. PV bleed: Noted evening of 12/31 per nursing. aspirin held, Pelvic USG - Ovaries are not visualized. The uterus is unremarkable without endometrial thickening. Gynecology evaled, appreciate recs. f/u gyencology on dc. HTN, ho: BP meds on hold due to low BP, assess daily in AM to resume as able. Other chronic medical conditions: Continue with/resume home meds as and when able. chronic systolic heart failure secondary to ischemic cardiomyopathy (15-20%, TTE 2022) status post ICD, stable. CAD/PAD as per records valvular heart disease (moderate to severe MR/TR, trace AR) hyperlipidemia, on statin Rx DM2 insulin requiring, patient hyperglycemic, suboptimal control as of recent hemoglobin A1c of 7.7 last October 2023 Chronic pancytopenia, hemoglobin slightly lower than baseline possibly from intermittent bleeding LE wounds as per son mild dementia, confused occasionally at home, but is aware she is at home. PT OT eval once orthospine eval DVT prophylaxis. TEDS, RE Thrombocytopenia, SCDs contraindicated with history PAD. DNR Patient son Mr. Yousuf Ribera, contact #[phone]. updated 01/01, wants to take her home w/ health rather than send her to rehab. Patient's son Dandre was given phone call 01/02 to go over discharge instruction, patient is being discharged to home with family support with following instruction at the point of discharge: Follow-up with your primary care physician within a week time and likely you will need labs CBC/CMP/magnesium/phosphorus. You were evaluated for acute on chronic kidney failure. Nephrology evaluated you. Your torsemide has been changed to 10 mg daily. Maintain fluid restriction of 1.5 L a day, maintain low-sodium diet [less than 2 g/day]. Increase protein content in diet. Follow-up with nephrology in 2 to 3 weeks time upon discharge. Continue with home health physical therapy. You will be discharged on antibiotic to complete the course for aspiration pneumonia. You are also noted to have T11 compression fracture, you are supposed to use TLSO brace while out of bed and with activity. While lying on bed you can take the brace off. You can utilize [id number] Tylenol and Voltaren gel for mild to moderate pain, you will be discharged on oxycodone for severe pain. Follow-up with orthospine in 1 to 3 weeks time upon discharge. You will need follow up XR for your back in 2-4 weeks, coordinate with your PCP office or ortho-spine office to set up the test. For worsening pain or ongoing pain, you will need ongoing eval from PCP office or orthospine office for further pain mx prescription. Given history of per vaginal bleeding, recommend that you continue to follow-up with the gynecology as prior. Take your medications as prescribed. Please make sure that you are able to get your medications today by calling your pharmacy before you leave the hospital so that your treatment continuity is not broken. Text document was generated using [employer] voice recognition software. It may contain grammatical or spelling errors. Kindly contact undersigned for clarification of any documentation item in question. Home Health Attestation I certify that this patient is under my care and that I, or a physicians hospital clinic assistant working with me, had a face to-face encounter that meets the home health [id number] encounter requirements with this patient. The encounter with the patient was in whole, or in part, for the following medical condition, which is the primary reason for home health care (list medical condition): acute renal failure I certify that, based on my findings, the following services are medically necessary home health services: My clinical findings support the need for the above services because: Caregiver Instruct Med Mgmt, Safety, Disease Process, Signs to Report Home Safety Assessment Medication Compliance and Monitoring Effective of New Medications Medication Compliance OT Assess ADL Status and Restore Function w ADLs PT Assessment for Endurance / Balance / Strength PT Eval for Safety and Mobility PT Eval for Safety, Gait Training, Assistive Devices PT Gait and Balance Training, Strengthening and Safety Safety Skilled Nsg Assessment Skilled Nsg Assess and Instruct on Diet Skilled Nsg Instruction New Medications Skilled Nsg Assess Pt Illness, Disease and Sx Monitoring S/S to Report to Provider Teach on Disease Management and Interventions Vital Signs Further, I certify that my clinical findings support that this patient is homebound (i.e. absences from home require considerable and taxing effort and are for medical reasons or sabianism services or infrequently or of short duration when for other reasons) because: Transportation Assistance/Unable to Leave Home Unassisted Certification for Home Health Services: Based on the above findings, I certify that this patient is confined to the home and needs intermittent senior care care, physical therapy and/or speech therapy or continues to need occupational therapy. The patient is under my care, and I have initiated the establishment of the plan of care. This patient will be followed by a physician who will periodically review the plan of care. Total Time Total Time Spent Total Time Spent (In Minutes): 45 Discharge Plan Discharge Items Patient Disposition: Home - Home Health Services Reason For Visit: HYPERKALEMIA, ARF CKD Discharge Diagnosis: Possible aspiration pneumonitis Electrolyte abnormalities CORBY over CKD stage III Metabolic encephalopathy Troponin elevation T11 compression deformity PV bleed Activity: As commented below Activity Comment: continue with home health PT Non-emergency contact: Primary Care Provider Call non-emergency contact if: you have any medication questions, your symptoms worsen, your pain is worsening and your temperature is above 101.5 Follow-up/Referrals: Melissa Tovar MD [Primary Care Provider] - (Date & Time 01/09/2024 12:20 PM Provider Kyree Sainz MD Department Family Medicine [facility] ) Diet: Carb Consistent or DM2 Fluids: 1500ml (6 cups) Diet Texture: Easy to Chew Addtl Attending Provider Instructions: Follow-up with your primary care physician within a week time and likely you will need labs CBC/CMP/magnesium/phosphorus. You were evaluated for acute on chronic kidney failure. Nephrology evaluated you. Your torsemide has been changed to 10 mg daily. Maintain fluid restriction of 1.5 L a day, maintain low-sodium diet [less than 2 g/day]. Increase protein content in diet. Follow-up with nephrology in 2 to 3 weeks time upon discharge. Continue with home health physical therapy. You will be discharged on antibiotic to complete the course for aspiration pneumonia. You are also noted to have T11 compression fracture, you are supposed to use TLSO brace while out of bed and with activity. While lying on bed you can take the brace off. You can utilize [id number] Tylenol and Voltaren gel for mild to moderate pain, you will be discharged on oxycodone for severe pain. Follow-up with orthospine in 1 to 3 weeks time upon discharge. You will need follow up XR for your back in 2-4 weeks, coordinate with your PCP office or ortho-spine office to set up the test. For worsening pain or ongoing pain, you will need ongoing eval from PCP office or orthospine office for further pain mx prescription. Given history of per vaginal bleeding, recommend that you continue to follow-up with the gynecology as prior. Take your medications as prescribed. Please make sure that you are able to get your medications today by calling your pharmacy before you leave the hospital so that your treatment continuity is not broken. Pending Studies at Discharge: Yes Stand-Alone Forms: My [facility] [employer], Smoking Cessation Medications and DC Order Prescriptions: New diclofenac sodium [Voltaren Arthritis Pain] 1 % Gel 2 g EXT Q6H PRN (Reason: mid-low back pain) Qty: 100 0RF oxycodone 5 mg Tablet 5 mg PO Q6H PRN (Reason: severe pain (scale score 7-10)) 5 Days Qty: 20 0RF Advanced Probiotic 625 mg (10 billion cell) Capsule 1 cap PO DAILY 10 Days Qty: 10 0RF amoxicillin-pot clavulanate 500-125 mg tablet 1 tab PO BID 4 Days Qty: 8 0RF Continued sertraline 100 mg tablet 150 mg PO HS aspirin 81 mg tablet,delayed release (DR/EC) 81 mg PO DAILY gabapentin 100 mg capsule 100 mg PO HS insulin glargine [Basaglar KwikPen U-100 Insulin] 100 unit/mL (3 mL) insulin pen 15 unit SUBCUT HS isosorbide dinitrate 10 mg Tablet 10 mg PO BID@0700,1200 30 Days Qty: 60 2RF acetaminophen [Tylenol] 325 mg Tablet 650 mg PO Q4H PRN (Reason: Pain) Rx Instructions: Unable to verify OTC meds at this date/time. ketoconazole 2 % Shampoo 1 ea TOPICAL DIRECTED PRN (Reason: OPEN SORES ON HEAD, UNTIL HEALED) Rx Instructions: 3 X WEEKLY nitroglycerin [Nitrostat] 0.4 mg Tablet, Sublingual 0.4 mg sublingual DIRECTED PRN (Reason: Chest Pain) Rx Instructions: Unable to verify med with patient/pharmacy at this date/time. ketoconazole 2 % Cream 1 applic TOPICAL BID PRN (Reason: FACIAL RASH WHEN FLARES) cranberry 500 mg Capsule 500 mg PO DAILY Rx Instructions: Unable to verify OTC meds at this date/time. cholecalciferol (vitamin D3) [Vitamin D3] 25 mcg (1,000 unit) Capsule 25 mcg PO DAILY Rx Instructions: Unable to verify OTC meds at this date/time. alprazolam 0.25 mg tablet 0.25 mg PO DAILY PRN (Reason: Anxiety) Rx Instructions: Unable to verify med with patient/pharmacy at this date/time. rosuvastatin 10 mg tablet 10 mg PO QAM Trulicity 0.75 mg/0.5 mL pen injector 0.75 mg SUBCUT WK Rx Instructions: PER EXT MED HX. metoprolol succinate 50 mg tablet extended release 24 hr 50 mg PO BID mirtazapine 15 mg tablet 15 mg PO HS Changed torsemide 10 mg tablet 10 mg PO QAM Qty: 30 0RF Discharge Orders: Discharge Order (Routine); Ordered 01/03/24 Ordered By: Ermelinda Montesinos/Other Patient Handouts: Managing Type 2 Diabetes Admission Data Admit Date/Time: 12/30/23 06:22 Attending Provider: Ermelinda Guan Admit Provider: Joao Kothari Primary Care Provider: Melissa Tovar Other Providers: Joao Kothari; Nancy Shahid; Himanshu aVrgas; Jeramie Leiva [facility]; Derrick Cardenas; Britney Amos; Cate Perez; Larry Joshi; Liv Smith; Dion Livingston; Mynor Leggett; Melissa Chang; Keila Sargent; Manuela Dorado; Araceli Cano; Valencia Brand; Megan Murillo; Livier Pryor; Brando Vinson; Phyllis Waller
[2024-01-03 11:39] VITALS: PULSE 72
== END 2024-01-03 14:29 | disposition home health service (06) | DRG 177 ==
LOC: ED 03:09 → 2N 09:13 → SUATTDRO 09:23 → EDINP 09:23 → 2N 15:50

== ENCOUNTER 2024-01-14 16:01 | Inpatient (IN) ==
[2024-01-14 16:44] LABS: Basophils # (auto) 0.01 K/uL (0.00-0.20); Basophils % (auto) 0.1 %; Eosinophils # (auto) 0.01 K/uL (0.00-0.50); Eosinophils % (auto) 0.1 %; Hematocrit (blood only) 31.6 % (37.0-47.0); Hemoglobin 9.8 g/dl (12.0-16.0); Immature Granulocytes # (auto) 0.09 K/uL (0.01-0.20); Immature Granulocytes % (auto) 1.3 %; Lymphocytes # (auto) 0.77 K/uL (1.20-3.40); Lymphocytes % (auto) 11.3 %; Mean Corpuscular Hemoglobin 32.2 pg (25.0-34.0); Mean Corpuscular Volume 103.9 fL (80.0-100.0); Mean Platelet Volume 12.5 fL (9.4-12.4); Monocytes # (auto) 1.05 K/uL (0.11-0.59); Monocytes % (auto) 15.4 %; Neutrophils # (auto) 4.87 K/uL (1.40-6.50); Neutrophils % (auto) 71.8 %; Platelet Count 93 K/uL (130-400); RDW Coefficient of Variation 17.1 % (11.5-14.5); RDW Standard Deviation 65.4 fL (36.4-46.3); Red Blood Count 3.04 M/uL (4.20-5.40)
--- NOTE | 2024-01-14 16:51 | Emergency Department Note ---
History of Present Illness General Chief complaint: Abdominal Pain Time Seen by Provider: 01/14/24 16:17 History of Present Illness Provider complaint: Abdominal pain falls Maximum Pain Intensity: 8 73-year-old female presents emergency department for abdominal pain and falls. Patient reports she has been having a lot of abdominal pain. She reports constipation. No nausea or vomiting. No diarrhea. She reports she feels weak and has been falling. Patient reporting pain in her head and her neck as well as her abdomen. Home Medications Medication Instructions Recorded Confirmed Type aspirin 81 mg tablet,delayed 81 mg PO DAILY 12/24/22 01/14/24 History release gabapentin 100 mg capsule 100 mg PO TID 12/24/22 01/14/24 History insulin glargine 100 unit/mL (3 15 unit subcut HS 12/24/22 01/14/24 History mL) subcutaneous pen (Basaglar KwikPen U-100 Insulin) sertraline 100 mg tablet 150 mg PO HS 12/24/22 01/14/24 History isosorbide dinitrate 10 mg tablet 10 mg PO BID@0700,1200 30 days #60 12/29/22 01/14/24 Rx tabs acetaminophen 325 mg tablet 650 mg PO Q4H PRN Pain 07/05/23 01/14/24 History (Tylenol) cholecalciferol (vitamin D3) 25 25 mcg PO DAILY 07/05/23 01/14/24 History mcg (1,000 unit) capsule (Vitamin D3) cranberry 500 mg capsule 500 mg PO DAILY 07/05/23 01/14/24 History dulaglutide 0.75 mg/0.5 mL 0.75 mg subcut WK 07/05/23 01/14/24 History subcutaneous pen injector (Trulicity) ketoconazole 2 % shampoo 1 ea topical DIRECTED PRN OPEN 07/05/23 01/14/24 History SORES ON HEAD, UNTIL HEALED ketoconazole 2 % topical cream 1 applic topical BID PRN FACIAL 07/05/23 01/14/24 History RASH WHEN FLARES nitroglycerin 0.4 mg sublingual 0.4 mg sublingual DIRECTED PRN 07/05/23 01/14/24 History tablet (Nitrostat) Chest Pain rosuvastatin 10 mg tablet 10 mg PO QAM 07/05/23 01/14/24 History metoprolol succinate 50 mg 50 mg PO BID 12/30/23 01/14/24 History tablet,extended release 24 hr mirtazapine 15 mg tablet 15 mg PO HS 12/30/23 01/14/24 History diclofenac sodium 1 % topical gel 2 g EXT Q6H PRN mid-low back pain 01/03/24 01/14/24 Rx (Voltaren Arthritis Pain) #100 grams torsemide 10 mg tablet 10 mg PO QAM #30 tabs 01/03/24 01/14/24 Rx oxycodone 5 mg tablet 5 mg PO Q6 PRN SEVERE PAIN 7-10 01/14/24 01/14/24 History Allergies Allergy/AdvReac Type Severity Reaction Status Date / Time lisinopril AdvReac Intermediate Cough Verified 12/31/23 10:44 Past Med/Surg History Problem List (Updated 01/15/24 @ 00:38 by Layo Bass MD) CHF (congestive heart failure) (Acute) Pleural effusion (Acute) Hypoxia (Acute) Compression fracture of T11 vertebra Postmenopausal bleeding ARF (acute renal failure) (Acute) Thrombocytopenia (Acute) Acute exacerbation of congestive heart failure (Acute) Hypoxia (Acute) Recurrent UTI Cystocele UTI (urinary tract infection) Weakness (Acute) CHF (congestive heart failure) (Acute) SOB (shortness of breath) (Acute) Pedal edema (Acute) Pancytopenia (Acute) Acute on chronic systolic CHF (congestive heart failure) Acute UTI (Acute) Weakness (Acute) Contusion of hip (Acute) Ambulatory dysfunction (Acute) Weakness (Acute) Acute UTI (Acute) Falls frequently (Acute) Sensorineural hearing loss (SNHL) of both ears Encounter for pre-operative examination Arthritis (Chronic) Hypertension (Chronic) Ischemic cardiomyopathy (Chronic) Hypoxia (Acute) Elevated troponin (Acute) Pleural effusion (Acute) CKD (chronic kidney disease) (Acute) Elevated troponin I level Acute worsening of stage 4 chronic kidney disease DVT prophylaxis Thrombocytopenia (Acute) CHF (congestive heart failure) Chronic HFrEF (heart failure with reduced ejection fraction) AICD (automatic cardioverter/defibrillator) present (Chronic) 2017--meditronic @ [facility] Moderate mitral regurgitation (Chronic) Aortic stenosis (Chronic) Chronic systolic heart failure (Chronic) DM II (diabetes mellitus, type II), controlled (Chronic) GERD (gastroesophageal reflux disease) (Chronic) Anxiety and depression (Chronic) Anemia (Chronic) Hyperkalemia (Chronic) Hyperlipidemia LDL goal <70 (Chronic) Medical History Chronic renal disease, stage IV Pancytopenia Dementia Hypertension Surgical History History of open reduction and internal fixation (ORIF) procedure ankle fx---hardware in place History of bilateral cataract extraction History of tubal ligation History of appendectomy Status post cholecystectomy Family History Mother Family history of diabetes mellitus Brother Family history of diabetes mellitus Sister Family history of diabetes mellitus Other No family history of adverse response to anesthesia Social History Smoking Status: Never smoker Second Hand Exposure: No; Do You Dip or Chew Tobacco: No; Hx Alcohol Use: No Hx Substance Use: No Preferred Language: [place] Communication Ability: Effective Occupational Ther Required: No Beliefs That Will Affect Care: None marital status: / Current Living Situation: Family Current Living Situation Comment: lives in apt beside son How many Children do You have: 3 Other Information That Helps Us Care for You: No Feels Safe at Home: Yes Safety Concerns: Feels Safe At This Time Assistive Devices: Walker and Wheelchair Physical Exam Vital Signs Vital Signs - 24 hr 01/14/24 16:09 01/14/24 16:11 01/14/24 16:12 Temperature Temperature Source Pulse Rate 77 76 Pulse Rate [Apical] Pulse Rate from SpO2 Sensor 76 Respiratory Rate 27 H Respiratory Effort / Characteristics Respiratory Depth Respiratory Pattern Blood Pressure 135/67 Blood Pressure [Right Arm] Blood Pressure Mean 109 Blood Pressure Mean [Right Arm] Pulse Oximetry 92 Oxygen Delivery Method Oxygen Flow Rate Sepsis Recent Fever Within 48 Hours Sepsis New/Unexplained Change in Mental Status Sepsis Action Taken by Nursing 01/14/24 16:15 01/14/24 16:17 01/14/24 16:17 Temperature 36.5 C Temperature Source Oral Pulse Rate 76 73 Pulse Rate [Apical] 75 Pulse Rate from SpO2 Sensor 74 Respiratory Rate 19 22 22 Respiratory Effort / Characteristics Respiratory Depth Normal Normal Respiratory Pattern Blood Pressure 135/67 Blood Pressure [Right Arm] 135/67 Blood Pressure Mean 89 Blood Pressure Mean [Right Arm] 89 Pulse Oximetry 86 L 88 L 94 Oxygen Delivery Method Nasal Cannula Room Air Nasal Cannula Oxygen Flow Rate 2 2 Sepsis Recent Fever Within 48 Hours No Sepsis New/Unexplained Change in Mental Status No Sepsis Action Taken by Nursing No Action Required 01/14/24 16:24 01/14/24 16:26 01/14/24 16:30 Temperature Temperature Source Pulse Rate 78 Pulse Rate [Apical] Pulse Rate from SpO2 Sensor 77 Respiratory Rate 14 Respiratory Effort / Characteristics Respiratory Depth Respiratory Pattern Blood Pressure 128/74 Blood Pressure [Right Arm] Blood Pressure Mean 105 Blood Pressure Mean [Right Arm] Pulse Oximetry 98 94 Oxygen Delivery Method Nasal Cannula Oxygen Flow Rate 2 Sepsis Recent Fever Within 48 Hours Sepsis New/Unexplained Change in Mental Status Sepsis Action Taken by Nursing 01/14/24 16:37 01/14/24 16:51 01/14/24 17:49 Temperature Temperature Source Pulse Rate 75 Pulse Rate [Apical] 77 Pulse Rate from SpO2 Sensor 75 Respiratory Rate 23 19 Respiratory Effort / Characteristics Respiratory Depth Normal Respiratory Pattern Blood Pressure 111/67 140/103 H Blood Pressure [Right Arm] 128/74 Blood Pressure Mean 81 127 Blood Pressure Mean [Right Arm] 92 Pulse Oximetry 99 98 Oxygen Delivery Method Nasal Cannula Oxygen Flow Rate 2 Sepsis Recent Fever Within 48 Hours Sepsis New/Unexplained Change in Mental Status Sepsis Action Taken by Nursing 01/14/24 17:50 01/14/24 17:54 01/14/24 18:00 Temperature Temperature Source Pulse Rate 79 Pulse Rate [Apical] 76 Pulse Rate from SpO2 Sensor 79 Respiratory Rate 16 20 Respiratory Effort / Characteristics Non-Labored Spontaneous Respiratory Depth Normal Respiratory Pattern Regular Blood Pressure 140/94 Blood Pressure [Right Arm] 145/97 H Blood Pressure Mean 99 Blood Pressure Mean [Right Arm] 113 Pulse Oximetry 97 99 Oxygen Delivery Method Nasal Cannula Oxygen Flow Rate 2 Sepsis Recent Fever Within 48 Hours Sepsis New/Unexplained Change in Mental Status Sepsis Action Taken by Nursing 01/14/24 18:00 01/14/24 18:00 01/14/24 18:00 Temperature Temperature Source Pulse Rate 78 Pulse Rate [Apical] Pulse Rate from SpO2 Sensor 78 Respiratory Rate 22 Respiratory Effort / Characteristics Respiratory Depth Respiratory Pattern Blood Pressure 145/97 H 145/97 H Blood Pressure [Right Arm] Blood Pressure Mean 115 115 Blood Pressure Mean [Right Arm] Pulse Oximetry 97 Oxygen Delivery Method Oxygen Flow Rate Sepsis Recent Fever Within 48 Hours Sepsis New/Unexplained Change in Mental Status Sepsis Action Taken by Nursing 01/14/24 18:12 01/14/24 18:30 01/14/24 18:33 Temperature Temperature Source Pulse Rate 76 76 Pulse Rate [Apical] Pulse Rate from SpO2 Sensor 77 76 Respiratory Rate 19 20 Respiratory Effort / Characteristics Respiratory Depth Respiratory Pattern Blood Pressure 145/74 H Blood Pressure [Right Arm] Blood Pressure Mean 114 Blood Pressure Mean [Right Arm] Pulse Oximetry 98 100 Oxygen Delivery Method Oxygen Flow Rate Sepsis Recent Fever Within 48 Hours Sepsis New/Unexplained Change in Mental Status Sepsis Action Taken by Nursing 01/14/24 18:45 01/14/24 18:45 01/14/24 18:45 Temperature Temperature Source Pulse Rate 76 Pulse Rate [Apical] Pulse Rate from SpO2 Sensor 76 Respiratory Rate 16 Respiratory Effort / Characteristics Respiratory Depth Respiratory Pattern Blood Pressure 147/79 H 147/79 H Blood Pressure [Right Arm] Blood Pressure Mean 100 100 Blood Pressure Mean [Right Arm] Pulse Oximetry 100 Oxygen Delivery Method Oxygen Flow Rate Sepsis Recent Fever Within 48 Hours Sepsis New/Unexplained Change in Mental Status Sepsis Action Taken by Nursing 01/14/24 18:54 Temperature Temperature Source Pulse Rate 76 Pulse Rate [Apical] Pulse Rate from SpO2 Sensor 76 Respiratory Rate 19 Respiratory Effort / Characteristics Respiratory Depth Respiratory Pattern Blood Pressure Blood Pressure [Right Arm] Blood Pressure Mean Blood Pressure Mean [Right Arm] Pulse Oximetry 99 Oxygen Delivery Method Oxygen Flow Rate Sepsis Recent Fever Within 48 Hours Sepsis New/Unexplained Change in Mental Status Sepsis Action Taken by Nursing Physical Exam GENERAL: Ill-appearing HENT: Exam performed. -Head: Normocephalic and atraumatic. -Right Ear: External ear normal. No mastoid erythema -Left Ear: External ear normal. No mastoid erythema -Mouth/Throat: Dry mucous membranes. EYES: Conjunctivae and EOM are normal. Pupils are equal, round, and reactive to light. Right eye exhibits no discharge. Left eye exhibits no discharge. No scleral icterus. NECK: Normal range of motion. Neck supple. Right-sided JVD present. No spinous process tenderness present. CV: Normal rate, regular rhythm, normal heart sounds and intact distal pulses. There is no peripheral edema. Palpable radial pulses bue. PULM/CHEST: Effort normal and breath sounds normal. No respiratory distress. No stridor. She has no wheezes. She has no rales. -Chest Wall: She exhibits no tenderness. No crepitus bilaterally. ABD: The abdomen is soft. Ecchymosis of the anterior abdominal wall. Diffuse tenderness to palpation. MUSC/SKEL: Pelvis stable. Pain on palpation left hip. NEURO: Motor and sensation grossly intact. Course Course 1616: The patient was evaluated in room C5. A complete history and physical exam was performed Cardiac monitoring: An order was placed for continuous cardiac monitoring. The monitor shows a rate of 70 with sinus rhythm interpreted by me Patient found to be hypoxic on room air. Supplemental oxygen was applied via nasal cannula which improved the patient's oxygen saturation. 1834: Vital signs stable. White blood count 6.8. Hemoglobin 9.8. Platelet count 93. INR 1.3. VBG shows venous pH of 7.35 venous pCO2 of 49. Creatinine is 2. At discharge on January 02 her creatinine was 2.02. Total bilirubin 1.3. High-sensitivity troponin 43.5. BNP 4700. Imaging shows large right- sided pleural effusion. No acute traumatic injury. CT of the abdomen pelvis shows a subacute burst fracture of T11. The fracture involves posterior elements of T11 extending through both pedicles as well as spinous process of T10. Radiology reports that this fracture is unstable. I discussed the scan with the reading radiologist Dr. Nicole via [place] test and when he compared to the previous CT of the abdomen pelvis done on December 30, 2023 he said there is no significant change. External medical records were reviewed. While the patient was in the hospital the patient was evaluated for her back fracture by Dr. [facility]erre[facility] recommended conservative treatment with a brace. Patient be treated with Lasix 40 mg IV push for her fluid overload. Patient be admitted to the [facility] hospitalist team. Administered Medications Acetaminophen (Acetaminophen 500 Mg Tab) 1,000 mg PO Q12H [facility] Stop: 02/13/24 19:59 Last Admin: 01/14/24 21:01 Dose: 1,000 mg Documented By: CED Gabapentin (Gabapentin 100 Mg Cap) 100 mg PO TID TED Stop: 02/13/24 20:59 Last Admin: 01/14/24 21:59 Dose: 100 mg Documented By: CED Heparin Sodium (Porcine) (Heparin Sod 5,000 Unit/0.5 Ml Vial) 5,000 units SQ Q12 TED Stop: 02/13/24 20:59 Last Admin: 01/14/24 21:17 Dose: 5,000 units Documented By: CED Insulin Aspart (Insulin Aspart Per Unit Charge) 0 units SC ACHS [facility] Stop: 02/13/24 20:59 Last Admin: 01/14/24 21:16 Dose: 3 units Documented By: CED Co-signed By: ROHAN Insulin Glargine (Lantus Per Unit Charge) 7 units SQ HS [facility] Stop: 02/13/24 20:59 Last Admin: 01/14/24 21:17 Dose: 7 units Documented By: CED Co-signed By: ROHAN Metoprolol Succinate (Metoprolol Succ 50mg Ext Rel Tab) 50 mg PO BID [facility] Stop: 02/13/24 20:59 Last Admin: 01/14/24 21:59 Dose: 50 mg Documented By: CED Polyethylene Glycol (Polyethylene (Miralax) 17 Gm Pack) 17 gm PO DAILY [facility] Stop: 02/13/24 19:59 Last Admin: 01/14/24 21:02 Dose: 17 gm Documented By: CED Sertraline HCl (Sertraline Hcl 50 Mg Tablet) 150 mg PO [facility] Stop: 02/13/24 20:59 Last Admin: 01/14/24 22:00 Dose: 150 mg Documented By: CED Discontinued Medications Furosemide (Furosemide 40 Mg/4 Ml Vial) 40 mg IV ONE ONE Stop: 01/14/24 17:40 Last Admin: 01/14/24 18:00 Dose: 40 mg Documented By: CELESTINE Miscellaneous (Remove Lidoderm Patch) 1 each N/A DAILY@2100 [facility] Stop: 02/13/24 20:59 Last Admin: 01/14/24 21:25 Dose: 1 each Documented By: CED Tramadol HCl (Tramadol Hcl 50 Mg Tablet) 25 mg PO Q8H PRN PRN Reason: Pain Stop: 02/13/24 20:38 Last Admin: 01/14/24 21:18 Dose: 25 mg Documented By: CED Critical Care Time Critical Care Time: Yes Total Critical Care Time: 47 I have personally spent greater than 47 minutes of critical care time in the direct management of this patient. This includes bedside care, interpretation of diagnostic studies, and testing, discussion with consultants, patient, and family members, and other required patient management activities. This 47 minutes is in excess of all separately billable procedures. Medical Decision Making Medical Records Attestation: I reviewed the patient's medical records. External medical records reviewed. Patient is DNR/DNI.At discharge on January 02 her creatinine was 2.02. Laboratory Data Attestation: I reviewed the patient's lab results. 01/14/24 Unknown 01/14/24 Unknown Lab Results 01/14/24 01/14/24 01/14/24 Range/Units 16:14 16:39 17:04 VBG pH 7.35 L (7.36-7.41) VBG pCO2 49 (38-50) mmHg VBG pO2 24 mmHg VBG HCO3 27 mmol/L VBG O2 Saturation < 60.0 % VBG Base Excess 0.8 mEq/L POC Glucose 258 H (70-99) mg/dl Lactate 1.2 (0.4-2.0) mmol/L Troponin I High Sens (0-14) pg/ml B-Natriuretic Peptide > 4700 H (0-100) pg/ml Urine Color Urine Appearance (Clear) Urine pH (4.5-7.5) Ur Specific [place] (1.000-1.030) Urine Protein (Negative) Urine Glucose (UA) (Negative) Urine Ketones (Negative) Urine Blood (Negative) Urine Nitrite (Negative) Urine Bilirubin (Negative) Urine Urobilinogen (Negative) Ur Leukocyte Esterase (Negative) Urine WBC (Auto) (0-5) /hpf Urine RBC (Auto) (0-2) /hpf U Hyaline Cast (Auto) (0-2) /lpf U Epithel Cells (Auto) (0-2) /hpf Urine Bacteria (Auto) (None Seen) Blood Type A Positive Antibody Screen NEGATIVE 01/14/24 01/14/24 Range/Units 18:07 18:10 VBG pH (7.36-7.41) VBG pCO2 (38-50) mmHg VBG pO2 mmHg VBG HCO3 mmol/L VBG O2 Saturation % VBG Base Excess mEq/L POC Glucose (70-99) mg/dl Lactate (0.4-2.0) mmol/L Troponin I High Sens 43.5 H (0-14) pg/ml B-Natriuretic Peptide (0-100) pg/ml Urine Color Yellow Urine Appearance Clear (Clear) Urine pH 5.0 (4.5-7.5) Ur Specific [place] 1.014 (1.000-1.030) Urine Protein 1+ H (Negative) Urine Glucose (UA) Negative (Negative) Urine Ketones Negative (Negative) Urine Blood Negative (Negative) Urine Nitrite Negative (Negative) Urine Bilirubin Negative (Negative) Urine Urobilinogen Negative (Negative) Ur Leukocyte Esterase Negative (Negative) Urine WBC (Auto) 0-5 (0-5) /hpf Urine RBC (Auto) 3-5 H (0-2) /hpf U Hyaline Cast (Auto) 0-2 (0-2) /lpf U Epithel Cells (Auto) 3-5 H (0-2) /hpf Urine Bacteria (Auto) None Seen (None Seen) Blood Type Antibody Screen Imaging Data Attestation: I personally reviewed and interpreted this imaging study as follows: My Impression: Chest x-ray: Right-sided pleural effusion Radiologist's Impression: Chest X-Ray 01/14/24 16:23 XR chest 1V portable HISTORY: 73 years-old Female Sepsis COMPARISON: 12/30/2023 TECHNIQUE: AP view of the chest FINDINGS: Cardiac silhouette is enlarged. Patient is side bent. Single lead right subclavian pacer/AICD. Cardiomegaly. Atherosclerosis of the aorta. Right greater than left layering pleural effusions with bibasilar opacities. Pulmonary vascular congestion. IMPRESSION: 1. Cardiomegaly with pulmonary vascular congestion. 2. Right greater then left layering pleural effusions with bibasilar opacities which may represent atelectasis versus pneumonitis. ACT 112: Negative or not required by law. The above report was generated using voice recognition software. It may contain grammatical, syntax or spelling errors. Electronically signed by: Sergei Marino M.D. 01/14/2024 5:02 PM Abdomen/Pelvis CT 01/14/24 16:24 CT SCAN OF THE ABDOMEN AND PELVIS WITHOUT IV CONTRAST CLINICAL HISTORY: Fall. COMPARISON STUDY: Abdominal CT dated 12/30/2023. TECHNIQUE: CT scan of the abdomen and pelvis is performed from the lung bases to the proximal femora. Images are reviewed in the axial, sagittal, and coronal planes. IV contrast was not administered for this examination. Note that the examination was performed in significantly suboptimal fashion without IV contrast in the setting of trauma. The examination is degraded by motion artifact, as well as by streak artifact from the arms which could not be elevated above the abdomen. There is also suboptimal positioning within the CT gantry. A dose lowering technique was utilized adhering to the principles of ALARA. FINDINGS: Lung bases: The heart is enlarged noting a small pericardial effusion. A pacemaker lead is in place. There is coronary artery atherosclerosis. There is diminished attenuation of the cardiac blood pool as compared to the myocardium suggesting anemia. There are right larger than left pleural effusions with dependent consolidation. A small hiatal hernia is observed. Liver: The unenhanced liver is normal in size, contour, and attenuation. There is no intrahepatic biliary ductal dilatation. Gallbladder: The gallbladder decompressed and the wall appears thickened and edematous. Spleen: Normal in size and attenuation. Pancreas: The unenhanced pancreas is moderately atrophic and grossly unremarkable. Adrenal glands: Nodular thickening of the adrenal glands is similar to previous. Kidneys: The unenhanced kidneys demonstrate mild cortical atrophy and are without hydronephrosis. There are no renal calculi identified. There is no evidence of contour deforming renal mass lesion. Abdominal vasculature: The abdominal aorta is normal in course and caliber noting advanced atherosclerotic calcification. Bowel: There is mild clonic diverticulosis without CT evidence of acute diverticulitis. No bowel obstruction is seen. [id number] fecal retention is noted throughout the colon. The appendix is not visualized and reported surgically absent. Peritoneum: No intraperitoneal free air is identified. There is a small volume of pelvic ascites. Lymphadenopathy: None. Pelvic viscera: The bladder is mildly distended but otherwise normal in appearance. Uterus and adnexa are normal as visualized. Skeletal structures: The skeletal structures are osteopenic. Again seen is a subacute burst type compression fracture of T11 with [id number] loss of height. Fracture involves the posterior elements, extending through both pedicles of T11 as well as the spinous process of T10. There is no significant retropulsion of fragments. Paravertebral edema persists. A chronic compression deformity of T12 is unchanged from older examinations. There are subacute/healing left anterior rib fractures. No additional acute fracture is seen involving the lumbosacral spine. The bony pelvis and proximal femora appear intact. There is mild to moderate lumbosacral spondylosis. Sclerotic changes noted in the sacroiliac joints. No lytic or blastic lesions are seen. Soft tissues: There is body wall edema. IMPRESSION: 1. Significantly suboptimal examination without IV contrast. There is also streak and motion artifact. 2. There is no evidence of solid organ injury in the abdomen or pelvis on this unenhanced examination. 3. Again seen is a subacute type burst compression fracture of T11. There is mild/moderate loss of height, with no significant retropulsion of fragments. 4. Fracture involves the posterior elements of T11 extending through both pedicles, as well as the spinous process of T10. This fracture is likely unstable. 5. No additional acute fracture is identified. 6. Cardiomegaly and cardiac pacemaker. 7. There is evidence of fluid overload with a small volume of pelvic ascites, right larger than left pleural effusions with dependent consolidation, and anasarca of the body wall. 8. The gallbladder is contracted and the wall appears thickened and edematous. This is similar in appearance to previous. Correlate with clinical laboratory findings. 9. Additional findings as above. ACT 112: Negative or not required by law. Electronically signed by: Nicolas Wang M.D. 01/14/2024 6:[address] 01/14/24 16:24 CT SCAN OF THE CERVICAL SPINE CLINICAL HISTORY: Fall. COMPARISON STUDY: CT scan of the cervical spine dated 07/05/2023. TECHNIQUE: CT scan of the cervical spine is performed from the skull base to the upper thoracic spine. Images are reviewed in the axial, sagittal, and coronal planes. IV contrast was not administered for this examination. A dose lowering technique was utilized adhering to the principles of ALARA. FINDINGS: Skeletal structures: The skeletal structures are osteopenic. There is no evidence of fracture or subluxation involving the cervical spine. Vertebral body height and alignment are maintained. The odontoid process and lateral masses are intact. The atlantoaxial articulation is preserved noting mild productive degenerative change. The spinous processes appear intact. Intervertebral discs: There is mild/moderate disc space narrowing at C6-C7. The remaining disc spaces are maintained. Central canal: A posterior disc osteophyte complex at C6-C7 may contribute to acquired compromise of the central canal. Soft tissues: The prevertebral and paraspinous soft tissues are within normal limits. There is atherosclerotic calcification of the carotid bulbs. Calvarium: The visualized calvarium at the skull base appears intact. Brain parenchyma: Partially visualized brain parenchyma at the skull base is within normal limits. Sinuses and mastoids: There is trace mucosal thickening in the left maxillary antrum. The mastoid air cells are well pneumatized. Cerumen is noted in the external auditory canals. Lung apices: A right pleural effusion is partially imaged. IMPRESSION: 1. There is no evidence of cervical spine fracture or subluxation. 2. A right pleural effusion is partially visualized. Electronically signed by: Nicolas Wang M.D. 01/14/2024 5:46 PM Femur X-Ray 01/14/24 16:24 XR femur LT 2V routine HISTORY: 73 years-old Female fall acute pain of the left lower extremity status post fall COMPARISON: Pelvis radiograph same day TECHNIQUE: 2 views of the left femur FINDINGS: Arterial calcifications. Suboptimal evaluation of the knee secondary to positioning. Questioned cortical irregularity of the posterior proximal tibia on the lateral view which may correlate with the lateral tibial plateau on the frontal projection. Mild osteoarthritis of the hip and knee without acute fracture or dislocation identified by radiography. IMPRESSION: 1. No acute femoral fracture or dislocation identified. 2. Suboptimal evaluation of the knee secondary to positioning. Equivocal cortical irregularity of the posterior lateral tibial plateau. Dedicated knee radiographs recommended in order to exclude an acute nondisplaced fracture. ACT 112: Negative or not required by law. The above report was generated using voice recognition software. It may contain grammatical, syntax or spelling errors. Electronically signed by: Sergei Marino M.D. 01/14/2024 5:[address] 01/14/24 16:24 CT SCAN OF THE BRAIN WITHOUT IV CONTRAST CLINICAL HISTORY: Fall. COMPARISON STUDY: CT of the brain dated 01/02/2024. TECHNIQUE: Unenhanced axial CT scan of the brain is performed from the vertex to the skull base. A dose lowering technique was utilized adhering to the principles of ALARA. CT DOSE: 2577.8 mGy.cm FINDINGS: Brain parenchyma: There is age-related involutional change noting moderate confluent subcortical and periventricular microangiopathic disease. There is no hemorrhage, mass effect, or evidence of acute territorial ischemia by CT criteria. Espinoza-white matter differentiation is preserved. No extra-axial fluid collection is seen. Ventricles, sulci, cisterns: Prominent secondary to involutional change. Intracranial vasculature: There is atherosclerotic calcification of the cavernous carotid and vertebral arteries. Calvarium: Unremarkable. Sinuses and mastoids: There is trace mucosal thickening in the left maxillary antrum. The remaining visualized paranasal sinuses are clear. The mastoid air cells are well pneumatized. Orbits: The bony orbits are grossly intact. There are bilateral ocular lens implants. IMPRESSION: There is no hemorrhage, mass effect, or evidence of acute territorial ischemia by CT criteria. ACT 112: Negative or not required by law. Electronically signed by: Nicolas Wang M.D. 01/14/2024 5:43 PM Pelvis X-Ray 01/14/24 16:24 SINGLE VIEW PELVIS CLINICAL HISTORY: Fall. FINDINGS: 2 AP, portable, supine pelvic radiographs are compared to study dated 03/07/2022. The examination is degraded by patient rotation. The skeletal structures are osteopenic. There is no radiographic evidence of acute fracture involving the hips or bony pelvis. Eahz-es-ccorxaaq arthritic change and joint space narrowing is seen in the hips. There is degenerative sclerosis of the sacroiliac joints and pubic symphysis. The overlying soft tissues are within normal limits. Advanced atherosclerotic calcification is seen in the femoral arteries. IMPRESSION: No acute bony abnormality is identified. Electronically signed by: Nicolas Wang M.D. 01/14/2024 5:06 PM Knee X-Ray 01/14/24 17:09 LEFT KNEE 2 VIEWS CLINICAL HISTORY: Fall. FINDINGS: Crosstable AP and lateral views of the left knee are obtained. No prior studies are available for comparison at the time of dictation. The skeletal structures are osteopenic. There is no radiographic evidence of acute fracture. There is mild tricompartmental degenerative joint space narrowing. No joint effusion is seen. There is mild prepatellar soft tissue swelling. Advanced atherosclerotic calcification is seen in the popliteal artery. IMPRESSION: Soft tissue swelling with no acute bony abnormality identified. Electronically signed by: Nicolas Wang M.D. 01/14/2024 6:26 PM ECG Data Attestation: I personally reviewed and interpreted this ECG as follows: Additional Comments: Sinus rhythm with rate of 74. MT QRS and QTc intervals within normal limits. No ST elevation or ST depression. T wave inversion in leads I to III, aVF, V4, V5 V6. Unchanged from the previous EKG in December 2023. [facility] Narrative 1617: The patient was evaluated in room C5. A complete history and physical exam was performed Cardiac monitoring: An order was placed for continuous cardiac monitoring. The monitor shows a rate of 70 with sinus rhythm interpreted by me Patient found to be hypoxic on room air. Supplemental oxygen was applied via nasal cannula which improved the patient's oxygen saturation. 183: Vital signs stable. White blood count 6.8. Hemoglobin 9.8. Platelet count 93. INR 1.3. VBG shows venous pH of 7.35 venous pCO2 of 49. Creatinine is 2. At discharge on January 02 her creatinine was 2.02. Total bilirubin 1.3. High-sensitivity troponin 43.5. BNP 4700. Imaging shows large right- sided pleural effusion. No acute traumatic injury. CT of the abdomen pelvis shows a subacute burst fracture of T11. The fracture involves posterior elements of T11 extending through both pedicles as well as spinous process of T10. Radiology reports that this fracture is unstable. I discussed the scan with the reading radiologist Dr. Nicole via [facility] test and when he compared to the previous CT of the abdomen pelvis done on December 30, 2023 he said there is no significant change. External medical records were reviewed. While the patient was in the hospital the patient was evaluated for her back fracture by Dr. Guerrero[facility] recommended conservative treatment with a brace. Patient be treated with Lasix 40 mg IV push for her fluid overload. [facility] Impression & Plan Hypoxia, Pleural effusion, CHF (congestive heart failure) Discharge Plan Visit Data Chief Complaint: Abdominal Pain ED Provider: Layo Bass Discharge Problem: Hypoxia, Pleural effusion, CHF (congestive heart failure) Patient Disposition: Admitted As Inpatient Discharge Instructions Interventions: ED Discharge Assessment Last Done: 01/14/24 20:01 Discharge Problem: CHF (congestive heart failure) Qualifiers: Heart failure type: unspecified Heart failure chronicity: unspecified Qualified Code(s): I50.9 - Heart failure, unspecified
[2024-01-14 16:58] LABS: Albumin Level 3.5 gm/dl (3.4-5.0); Bilirubin Direct 0.4 mg/dl (0-0.2); Bilirubin,Total 1.3 mg/dl (0.2-1.0); Calcium 9.3 mg/dl (8.6-10.3); Magnesium 1.8 mg/dl (1.7-2.4); Potassium 4.7 mmol/L (3.5-5.1); Total Protein 7.7 gm/dl (6.0-8.3)
--- NOTE | 2024-01-14 17:04 | XRay Report ---
XR chest 1V portable HISTORY: 73 years-old Female Sepsis COMPARISON: 12/30/2023 TECHNIQUE: AP view of the chest FINDINGS: Cardiac silhouette is enlarged. Patient is side bent. Single lead right subclavian pacer/AICD. Cardio megaly. Atherosclerosis of the aorta. Right greater than left layering pleural effusions with bibasil ar opacities. Pulmonary vascular congestion. IMPRESSION: 1. Cardiomegaly with pulmonary vascular congestion. 2. Right greater then left layering pleural effusions with bibasilar opacities which may represent at electasis versus pneumonitis. ACT 112: Negative or not required by law. The above report was generated using voice recognition software. It may contain grammatical, syntax o r spelling errors. Electronically signed by: Sergei Marino M.D. 01/14/2024 5:02 PM
--- NOTE | 2024-01-14 17:07 | XRay Report ---
SINGLE VIEW PELVIS CLINICAL HISTORY: Fall. FINDINGS: 2 AP, portable, supine pelvic radiographs are compared to study dated 03/07/2022. The exami nation is degraded by patient rotation. The skeletal structures are osteopenic. There is no radiograp hic evidence of acute fracture involving the hips or bony pelvis. Ubak-pg-[id number] arthritic change a nd joint space narrowing is seen in the hips. There is degenerative sclerosis of the sacroiliac joint s and pubic symphysis. The overlying soft tissues are within normal limits. Advanced atherosclerotic calcification is seen in the femoral arteries. IMPRESSION: No acute bony abnormality is identified. Electronically signed by: Nicolas Wang M.D. 01/14/2024 5:06 PM
--- NOTE | 2024-01-14 17:07 | XRay Report ---
XR femur LT 2V routine HISTORY: 73 years-old Female fall acute pain of the left lower extremity status post fall COMPARISON: Pelvis radiograph same day TECHNIQUE: 2 views of the left femur FINDINGS: Arterial calcifications. Suboptimal evaluation of the knee secondary to positioning. Questioned corti elias irregularity of the posterior proximal tibia on the lateral view which may correlate with the lat eral tibial plateau on the frontal projection. Mild osteoarthritis of the hip and knee without acute fracture or dislocation identified by radiography. IMPRESSION: 1. No acute femoral fracture or dislocation identified. 2. Suboptimal evaluation of the knee secondary to positioning. Equivocal cortical irregularity of the posterior lateral tibial plateau. Dedicated knee radiographs recommended in order to exclude an acut e nondisplaced fracture. ACT 112: Negative or not required by law. The above report was generated using voice recognition software. It may contain grammatical, syntax o r spelling errors. Electronically signed by: Sergei Marino M.D. 01/14/2024 5:06 PM
[2024-01-14 17:19] LABS: INR 1.3 (0.9-1.1); Partial Thromboplastin Time 27 Seconds (21-31); Prothrombin Time 13.8 Seconds (9.0-12.0)
[2024-01-14 17:20] LABS: Base Excess VBG 0.8 mEq/L; HCO3 VBG 27 mmol/L; Oxygen Saturation VBG < 60.0 %; PCO2 VBG 49 mmHg (38-50); PO2 VBG 24 mmHg; pH VBG 7.35 (7.36-7.41)
--- NOTE | 2024-01-14 17:45 | CT Scan Report ---
CT SCAN OF THE BRAIN WITHOUT IV CONTRAST CLINICAL HISTORY: Fall. COMPARISON STUDY: CT of the brain dated 01/02/2024. TECHNIQUE: Unenhanced axial CT scan of the brain is performed from the vertex to the skull base. A do se lowering technique was utilized adhering to the principles of ALARA. CT DOSE: 2577.8 mGy.cm FINDINGS: Brain parenchyma: There is age-related involutional change noting moderate confluent subcortical and periventricular microangiopathic disease. There is no hemorrhage, mass effect, or evidence of acute t erritorial ischemia by CT criteria. Espinoza-white matter differentiation is preserved. No extra-axial fl uid collection is seen. Ventricles, sulci, cisterns: Prominent secondary to involutional change. Intracranial vasculature: There is atherosclerotic calcification of the cavernous carotid and vertebr al arteries. Calvarium: Unremarkable. Sinuses and mastoids: There is trace mucosal thickening in the left maxillary antrum. The remaining v isualized paranasal sinuses are clear. The mastoid air cells are well pneumatized. Orbits: The bony orbits are grossly intact. There are bilateral ocular lens implants. IMPRESSION: There is no hemorrhage, mass effect, or evidence of acute territorial ischemia by CT onelia penning[place]. ACT 112: Negative or not required by law. Electronically signed by: Nicolas Wang M.D. 01/14/2024 5:43 PM
--- NOTE | 2024-01-14 17:47 | CT Scan Report ---
CT SCAN OF THE CERVICAL SPINE CLINICAL HISTORY: Fall. COMPARISON STUDY: CT scan of the cervical spine dated 07/05/2023. TECHNIQUE: CT scan of the cervical spine is performed from the skull base to the upper thoracic spine . Images are reviewed in the axial, sagittal, and coronal planes. IV contrast was not administered fo r this examination. A dose lowering technique was utilized adhering to the principles of ALARA. FINDINGS: Skeletal structures: The skeletal structures are osteopenic. There is no evidence of fracture or subl uxation involving the cervical spine. Vertebral body height and alignment are maintained. The odonto id process and lateral masses are intact. The atlantoaxial articulation is preserved noting mild prod uctive degenerative change. The spinous processes appear intact. Intervertebral discs: There is mild/moderate disc space narrowing at C6-C7. The remaining disc spaces are maintained. Central canal: A posterior disc osteophyte complex at C6-C7 may contribute to acquired compromise of the central canal. Soft tissues: The prevertebral and paraspinous soft tissues are within normal limits. There is athero sclerotic calcification of the carotid bulbs. Calvarium: The visualized calvarium at the skull base appears intact. Brain parenchyma: Partially visualized brain parenchyma at the skull base is within normal limits. Sinuses and mastoids: There is trace mucosal thickening in the left maxillary antrum. The mastoid air cells are well pneumatized. Cerumen is noted in the external auditory canals. Lung apices: A right pleural effusion is partially imaged. IMPRESSION: 1. There is no evidence of cervical spine fracture or subluxation. 2. A right pleural effusion is partially visualized. Electronically signed by: Nicolas Wang M.D. 01/14/2024 5:46 PM
[2024-01-14] MEDS: FUROSEMIDE 40 MG/4 ML VIAL IV ONE (18:00)
--- NOTE | 2024-01-14 18:16 | CT Scan Report ---
CT SCAN OF THE ABDOMEN AND PELVIS WITHOUT IV CONTRAST CLINICAL HISTORY: Fall. COMPARISON STUDY: Abdominal CT dated 12/30/2023. TECHNIQUE: CT scan of the abdomen and pelvis is performed from the lung bases to the proximal femora. Images are reviewed in the axial, sagittal, and coronal planes. IV contrast was not administered for this examination. Note that the examination was performed in significantly suboptimal fashion withou t IV contrast in the setting of trauma. The examination is degraded by motion artifact, as well as by streak artifact from the arms which could not be elevated above the abdomen. There is also suboptima l positioning within the CT gantry. A dose lowering technique was utilized adhering to the principles of ALARA. FINDINGS: Lung bases: The heart is enlarged noting a small pericardial effusion. A pacemaker lead is in place. There is coronary artery atherosclerosis. There is diminished attenuation of the cardiac blood pool a s compared to the myocardium suggesting anemia. There are right larger than left pleural effusions wi th dependent consolidation. A small hiatal hernia is observed. Liver: The unenhanced liver is normal in size, contour, and attenuation. There is no intrahepatic tab iary ductal dilatation. Gallbladder: The gallbladder decompressed and the wall appears thickened and edematous. Spleen: Normal in size and attenuation. Pancreas: The unenhanced pancreas is moderately atrophic and grossly unremarkable. Adrenal glands: Nodular thickening of the adrenal glands is similar to previous. Kidneys: The unenhanced kidneys demonstrate mild cortical atrophy and are without hydronephrosis. The re are no renal calculi identified. There is no evidence of contour deforming renal mass lesion. Abdominal vasculature: The abdominal aorta is normal in course and caliber noting advanced atheroscle rotic calcification. Bowel: There is mild clonic diverticulosis without CT evidence of acute diverticulitis. No bowel obst ruction is seen. Yazj-be-oserqmvl fecal retention is noted throughout the colon. The appendix is not visualized and reported surgically absent. Peritoneum: No intraperitoneal free air is identified. There is a small volume of pelvic ascites. Lymphadenopathy: None. Pelvic viscera: The bladder is mildly distended but otherwise normal in appearance. Uterus and adnexa are normal as visualized. Skeletal structures: The skeletal structures are osteopenic. Again seen is a subacute burst type comp ression fracture of T11 with tnby-tq-dqxrwjls loss of height. Fracture involves the posterior element s, extending through both pedicles of T11 as well as the spinous process of T10. There is no signific ant retropulsion of fragments. Paravertebral edema persists. A chronic compression deformity of T12 i s unchanged from older examinations. There are subacute/healing left anterior rib fractures. No addit ional acute fracture is seen involving the lumbosacral spine. The bony pelvis and proximal femora harper ear intact. There is mild to moderate lumbosacral spondylosis. Sclerotic changes noted in the sacroil iac joints. No lytic or blastic lesions are seen. Soft tissues: There is body wall edema. IMPRESSION: 1. Significantly suboptimal examination without IV contrast. There is also streak and motion artifact . 2. There is no evidence of solid organ injury in the abdomen or pelvis on this unenhanced examination . 3. Again seen is a subacute type burst compression fracture of T11. There is mild/moderate loss of he ight, with no significant retropulsion of fragments. 4. Fracture involves the posterior elements of T11 extending through both pedicles, as well as the sp inous process of T10. This fracture is likely unstable. 5. No additional acute fracture is identified. 6. Cardiomegaly and cardiac pacemaker. 7. There is evidence of fluid overload with a small volume of pelvic ascites, right larger than left pleural effusions with dependent consolidation, and anasarca of the body wall. 8. The gallbladder is contracted and the wall appears thickened and edematous. This is similar in harper earance to previous. Correlate with clinical laboratory findings. 9. Additional findings as above. ACT 112: Negative or not required by law. Electronically signed by: Nicolas Wang M.D. 01/14/2024 6:14 PM
--- NOTE | 2024-01-14 18:27 | XRay Report ---
LEFT KNEE 2 VIEWS CLINICAL HISTORY: Fall. FINDINGS: Crosstable AP and lateral views of the left knee are obtained. No prior studies are availab le for comparison at the time of dictation. The skeletal structures are osteopenic. There is no radio graphic evidence of acute fracture. There is mild tricompartmental degenerative joint space narrowing . No joint effusion is seen. There is mild prepatellar soft tissue swelling. Advanced atherosclerotic calcification is seen in the popliteal artery. IMPRESSION: Soft tissue swelling with no acute bony abnormality identified. Electronically signed by: Nicolas Wang M.D. 01/14/2024 6:26 PM
[2024-01-14 18:34] LABS: Appearance Urine Clear (Clear); Bacteria Urine Automated None Seen (None Seen); Bilirubin Urine Negative (Negative); Blood Urine Negative (Negative); Cast Urine Automated 0-2 /lpf (0-2); Color Urine Yellow; Glucose Urine UA Negative (Negative); Ketones Urine Negative (Negative); Leukocyte Esterase Urine Negative (Negative); Nitrite Urine Negative (Negative); Protein Urine 1+ (Negative); Specific Gravity Urine 1.014 (1.000-1.030); Urobilinogen Urine Negative (Negative); WBC Urine Automated 0-5 /hpf (0-5)
[2024-01-14] MEDS ORDERED: bisacodyL 10 MG SUPP PR PRN (19:31)
--- NOTE | 2024-01-14 19:57 | Communication Note ---
Date of Service: January 14, 2024 Attending Addendum: Case reviewed with the advanced practitioner. I have personally performed a history and physical examination on the patient. I have reviewed the advanced practitioner's documentation on the date of service referenced in note, and I agree with, and take responsibility for the plan of care. please refer to her notes for full details patient seen and examined, records reviewed by myself as well on exam, patient seen resting in bed, on 2 L O2, awake, alert, answering most questions appropriately states her main symptom is shortness of breath, but no cough, fever/chills, chest pain also reports RLQ pain, sharp- (+) constipation, no nausea, no problems voiding reports low back pain as well- worse with movement, no leg weakness/numbness no other symptoms VS noted and reviewed oriented x 3 , not in distress, speaks in sentences with no effort nor accessory muscle use (+) dry oral mucosa, mild JVD normal rate, regular rhythm, no murmurs (+) decreased breath sounds R base, (+) mild rales at the bases, no wheezing (+) mild hematoma RUQ, non distended, soft, (+) mild tenderness RLQ no bipedal edema, erythema, warmth (+) multiple areas of small hematoma, skin tears BL lower extremities no gross focal neuro deficits all labs, imaging noted and reviewed ASSESSMENT AND PLAN> 73 year old female with history of CHF, ICM, s/p ICD, CAD, Valvular Heart Disease, Hypertension, Dyslipidemia, JEREMIE, DM 2 etc presenting with shortness of breath, etc Patient was just discharged from [facility] last 01/02 for Aspiration pneumonitis. BILATERAL PLEURAL EFFUSION, RIGHT>LEFT possible Acute on Chronic CHF, ICM, Valvular Heart Disease Recent Aspiration Pneumonitis - usually on Torsemide 10mg po daily (decreased from 20mg recently), given Lasix 40mg IV no other signs of overt volume overload such as leg edema - will consult Cardiology and Pulmonology RIGHT LOWER QUADRANT PAIN - CT abdomen/pelvis: no obstruction, appendix absent from constipation? Miralax CHRONIC BACK PAIN - found to have T11-T12 compression fracture from admission last month Ortho spine recommended TLSO brace, PT/OT - pain mostly in the lower back now as per son check CT lumbar spine Tylenol 1g q12h, PRN Tramadol q8h Pain management consult other diagnoses and plan of care as per advanced practitioner's notes Kenneth Valle MD
--- NOTE | 2024-01-14 20:35 | History & Physical Report ---
Date of Service January 14, 2024 Assessment & Plan (1) Compression fracture of T11 vertebra: (2) CHF (congestive heart failure): (3) Pancytopenia: (4) Ischemic cardiomyopathy: (5) Chronic HFrEF (heart failure with reduced ejection fraction): (6) AICD (automatic cardioverter/defibrillator) present: (7) Chronic systolic heart failure: (8) DM II (diabetes mellitus, type II), controlled: (9) Anxiety and depression: (10) Anemia: (11) Hypertension: Plan Assessment and plan: Acute hypoxic respiratory failure Acute exacerbation of systolic CHF Hypoxic on arrival in the 80s, currently on 2 L of oxygen with improvement Chest x-ray shows bilateral pleural effusion right greater than left Pulmonology consulted for possible thoracentesis Torsemide recently decreased by cardiology last week from 20 to 10 mg daily Consult cardiology for further management, s/p 1 time dose of 40 mg Lasix in ED Severe lower back pain: Check lumbar CT, pain control with Tylenol/tramadol, pain management consulted -Patient's son reports over the past 5-6 days patient is unable to sit up due to pain Constipation: MiraLAX ordered for today, no BM x 2 days with abdominal pain Dulcolax suppository as needed T11 compression deformity: Present in 12/2023, spine recommended TLSO brace Follow-up with Ortho outpatient DM2: Poor appetite, sugar in the 200s, SSI/4 times daily BGM/CTM Lantus 7 units at bedtime ordered, may increase gradually to home dose as needed Hx HTN/CAD/HLD/valvular heart disease: Continue statin/isosorbide/metoprolol Chronic pancytopenia: Platelets 93, at baseline, hold aspirin for now Heparin subcu every 12 hours, monitor platelets daily Mild dementia: Avoid medications that can worsen mentation such as benzos Redirect as able A total of 60 minutes was spent on chart review/facilitating plan of care/discussion with consultants/reviewing diagnostic data. Patient is a DNR/DNI DVT prophylaxis: Heparin subcu History of Present Illness Chief Complaint: Shortness of breath Primary Care Provider: Melissa Tovar MD The patient is a 73-year-old female with past medical history of chronic systolic heart failure secondary to ischemic cardiomyopathy, EF 15-20%, s/p ICD, CAD, PAD, valvular heart disease, moderate to severe MR/TR, HTN, HLD, JEREMIE, DM2 on insulin, CKD, baseline creatinine 1.72, chronic pancytopenia, mood disorder, mild dementia who presents to the ED today on 01/14/2024 with complaints of shortness of breath and multiple nonspecific complaints including headache, intermittent abdominal pain, constipation, lower back pain. Spoke with the patient's son, Dandre, also acid polymerization operator who reports that the patient has a 24-hour aide that stays with her and she is never alone. She has not had falls in the past few months. He reports that she is unable to sit up which she was able to do over the past few months. Reports that she complains of her pain worsening over the past 5-6 days. Also reports poor appetite and a blood sugar in the 400s on 01/13/2024 after a light lunch. Patient's son also reports that the patient was seen by cardiology last week and her torsemide was decreased from 20 mg to 10 mg. He also noted some worsening shortness of breath over the past few days. On exam, the patient reports lower back pain and just not feeling well. Also reports increasing shortness of breath that is improved with oxygen. On arrival to the ED, labs are remarkable for hemoglobin 9.8 hematocrit 31.6, platelets 93chronic BUN 66, creatinine 2, glucose 248, total bili 1.3, Trope 39, BNP over 4700 UA fairly unremarkable Knee x-ray negative for fracture Pelvics x-ray negative Head CT negative Femur x-ray left negative, cervical spine CT negative for acute fractures Chest x-ray showed cardiomegaly and vascular congestion, right greater than left layering pleural effusions with bibasilar opacities The patient is on 2 L of oxygen and on exam is in no apparent distress. The patient denies any fever/chills/chest pain. Did report some shortness of breath and abdominal pain. Denies any diarrhea. Last bowel movement was 2 days ago. Denies any nausea/vomiting. Patient is a poor historian Abdomen/pelvis CT remarkable for 1. Significantly suboptimal examination without IV contrast. There is also streak and motion artifact. 2. There is no evidence of solid organ injury in the abdomen or pelvis on this unenhanced examination. 3. Again seen is a subacute type burst compression fracture of T11. There is mild/moderate loss of height, with no significant retropulsion of fragments. 4. Fracture involves the posterior elements of T11 extending through both pedicles, as well as the spinous process of T10. This fracture is likely unstable. 5. No additional acute fracture is identified. 6. Cardiomegaly and cardiac pacemaker. 7. There is evidence of fluid overload with a small volume of pelvic ascites, right larger than left pleural effusions with dependent consolidation, and anasarca of the body wall. 8. The gallbladder is contracted and the wall appears thickened and edematous. This is similar in appearance to previous. Correlate with clinical laboratory findings. 9. Additional findings as above Allergies Allergy/AdvReac Type Severity Reaction Status Date / Time lisinopril AdvReac Intermediate Cough Verified 12/31/23 10:44 Home Medications Medication Instructions Recorded Confirmed Type aspirin 81 mg tablet,delayed 81 mg PO DAILY 12/24/22 01/14/24 History release gabapentin 100 mg capsule 100 mg PO TID 12/24/22 01/14/24 History insulin glargine 100 unit/mL (3 15 unit subcut HS 12/24/22 01/14/24 History mL) subcutaneous pen (Basaglar KwikPen U-100 Insulin) sertraline 100 mg tablet 150 mg PO HS 12/24/22 01/14/24 History isosorbide dinitrate 10 mg tablet 10 mg PO BID@0700,1200 30 days #60 12/29/22 01/14/24 Rx tabs acetaminophen 325 mg tablet 650 mg PO Q4H PRN Pain 07/05/23 01/14/24 History (Tylenol) cholecalciferol (vitamin D3) 25 25 mcg PO DAILY 07/05/23 01/14/24 History mcg (1,000 unit) capsule (Vitamin D3) cranberry 500 mg capsule 500 mg PO DAILY 07/05/23 01/14/24 History dulaglutide 0.75 mg/0.5 mL 0.75 mg subcut WK 07/05/23 01/14/24 History subcutaneous pen injector (Trulicity) ketoconazole 2 % shampoo 1 ea topical DIRECTED PRN OPEN 07/05/23 01/14/24 History SORES ON HEAD, UNTIL HEALED ketoconazole 2 % topical cream 1 applic topical BID PRN FACIAL 07/05/23 01/14/24 History RASH WHEN FLARES nitroglycerin 0.4 mg sublingual 0.4 mg sublingual DIRECTED PRN 07/05/23 01/14/24 History tablet (Nitrostat) Chest Pain rosuvastatin 10 mg tablet 10 mg PO QAM 07/05/23 01/14/24 History metoprolol succinate 50 mg 50 mg PO BID 12/30/23 01/14/24 History tablet,extended release 24 hr mirtazapine 15 mg tablet 15 mg PO HS 12/30/23 01/14/24 History diclofenac sodium 1 % topical gel 2 g EXT Q6H PRN mid-low back pain 01/03/24 01/14/24 Rx (Voltaren Arthritis Pain) #100 grams torsemide 10 mg tablet 10 mg PO QAM #30 tabs 01/03/24 01/14/24 Rx oxycodone 5 mg tablet 5 mg PO Q6 PRN SEVERE PAIN 7-10 01/14/24 01/14/24 History Past Med/Surg History Problem List Compression fracture of T11 vertebra Postmenopausal bleeding ARF (acute renal failure) (Acute) Thrombocytopenia (Acute) Acute exacerbation of congestive heart failure (Acute) Hypoxia (Acute) Recurrent UTI Cystocele UTI (urinary tract infection) Weakness (Acute) CHF (congestive heart failure) (Acute) SOB (shortness of breath) (Acute) Pedal edema (Acute) Pancytopenia (Acute) Acute on chronic systolic CHF (congestive heart failure) Acute UTI (Acute) Weakness (Acute) Contusion of hip (Acute) Ambulatory dysfunction (Acute) Weakness (Acute) Acute UTI (Acute) Falls frequently (Acute) Sensorineural hearing loss (SNHL) of both ears Encounter for pre-operative examination Arthritis (Chronic) Hypertension (Chronic) Ischemic cardiomyopathy (Chronic) Hypoxia (Acute) Elevated troponin (Acute) Pleural effusion (Acute) CKD (chronic kidney disease) (Acute) Elevated troponin I level Acute worsening of stage 4 chronic kidney disease DVT prophylaxis Thrombocytopenia (Acute) CHF (congestive heart failure) Chronic HFrEF (heart failure with reduced ejection fraction) AICD (automatic cardioverter/defibrillator) present (Chronic) 2017--meditronic @ [facility] Moderate mitral regurgitation (Chronic) Aortic stenosis (Chronic) Chronic systolic heart failure (Chronic) DM II (diabetes mellitus, type II), controlled (Chronic) GERD (gastroesophageal reflux disease) (Chronic) Anxiety and depression (Chronic) Anemia (Chronic) Hyperkalemia (Chronic) Hyperlipidemia LDL goal <70 (Chronic) Medical History Chronic renal disease, stage IV Pancytopenia Dementia Hypertension Surgical History History of open reduction and internal fixation (ORIF) procedure ankle fx---hardware in place History of bilateral cataract extraction History of tubal ligation History of appendectomy Status post cholecystectomy Family History Mother Family history of diabetes mellitus Brother Family history of diabetes mellitus Sister Family history of diabetes mellitus Other No family history of adverse response to anesthesia Social History Smoking Status: Never smoker Second Hand Exposure: No; Do You Dip or Chew Tobacco: No; Hx Alcohol Use: No Hx Substance Use: No Preferred Language: Dutch Communication Ability: Effective Machine Ii Coremaker Required: No Beliefs That Will Affect Care: None marital status: / Current Living Situation: Family Current Living Situation Comment: with daughter How many Children do You have: 3 Feels Safe at Home: Yes Assistive Devices: Cane and Walker Review of Systems Review of Systems: All systems reviewed & are unremarkable except as noted in HPI & below Physical Exam Constitutional: WD/WN, vitals as above + ill appearing Eyes: PERRL, conjunctivae normal, anicteric sclerae ENMT: external ear and nose normal, oropharynx normal Neck: trachea midline, no thyromegaly Respiratory: normal respiratory effort, lungs clear to auscultation Cardiovascular: RRR, no murmur, no edema (JVD noted on exam) Extremities: + pedal edema (Trace bilateral pedal edema); no calf tenderness Gastrointestinal (Abdomen): normal bowel sounds, soft, nontender, no hepatosplenomegaly (Mild right lower quadrant tenderness) Inspection/Auscultation: abdomen not distended Musculoskeletal: no cyanosis or clubbing, extremities motor strength 5/5 Skin: no rashes, warm and dry (Scattered bruising and skin tears bilateral lower legs) Neurologic: PERRL, EOMI, accommodation nl, no face palsy, no dysarthria (Awake alert and oriented x 2, forgetful) Psychiatric: Orientation: alert, oriented to person and oriented to place Lymphatic: no cervical or axillary lymphadenopathy Results & Data Results & Data Vital Signs (Past 12 Hours) Vital Signs Temp Pulse Pulse Resp BP BP Pulse Ox 01/14/24 18:54 76 19 99 01/14/24 18:45 76 16 100 01/14/24 18:45 147/79 H 01/14/24 18:45 147/79 H 01/14/24 18:33 76 20 100 01/14/24 18:30 145/74 H 01/14/24 18:12 76 19 98 01/14/24 18:00 145/97 H 01/14/24 18:00 78 22 97 01/14/24 18:00 145/97 H 01/14/24 18:00 76 20 145/97 H 99 01/14/24 17:54 79 16 97 01/14/24 17:50 140/94 01/14/24 17:49 140/103 H 01/14/24 16:51 75 19 111/67 98 01/14/24 16:37 77 23 128/74 99 01/14/24 16:30 128/74 01/14/24 16:26 94 01/14/24 16:24 78 14 98 01/14/24 16:17 75 22 135/67 94 01/14/24 16:17 36.5 C 73 22 135/67 88 L 01/14/24 16:15 76 19 86 L 01/14/24 16:12 76 27 H 92 01/14/24 16:11 135/67 01/14/24 16:09 77 O2 Del Method O2 Flow Rate 01/14/24 18:54 01/14/24 18:45 01/14/24 18:45 01/14/24 18:45 01/14/24 18:33 01/14/24 18:30 01/14/24 18:12 01/14/24 18:00 01/14/24 18:00 01/14/24 18:00 01/14/24 18:00 Nasal Cannula 2 01/14/24 17:54 01/14/24 17:50 01/14/24 17:49 01/14/24 16:51 01/14/24 16:37 Nasal Cannula 2 01/14/24 16:30 10/08/24 16:26 Nasal Cannula 2 01/14/24 16:24 01/14/24 16:17 Nasal Cannula 2 01/14/24 16:17 Room Air 01/14/24 16:15 Nasal Cannula 2 01/14/24 16:12 01/14/24 16:11 01/14/24 16:09 Diagnostic Findings Laboratory Results WBC 6.80 K/ul (4.8-10.8) 01/14/24 Unknown RBC 3.04 M/uL (4.20-5.40) L 01/14/24 Unknown Hgb 9.8 g/dl (12.0-16.0) L 01/14/24 Unknown Hct 31.6 % (37.0-47.0) L 01/14/24 Unknown MCV 103.9 fL (80.0-100.0) H 01/14/24 Unknown MCH 32.2 pg (25.0-34.0) 01/14/24 Unknown MCHC 31.0 g/dL (32.0-36.0) L 01/14/24 Unknown RDW Std Deviation 65.4 fL (36.4-46.3) H 01/14/24 Unknown RDW Coeff of Nevaeh 17.1 % (11.5-14.5) H 01/14/24 Unknown Plt Count 93 K/uL (130-400) L 01/14/24 Unknown MPV 12.5 fL (9.4-12.4) H 01/14/24 Unknown Immature Gran % (Auto) 1.3 % 01/14/24 Unknown Neut % (Auto) 71.8 % 01/14/24 Unknown Lymph % (Auto) 11.3 % 01/14/24 Unknown [place] % (Auto) 15.4 % 01/14/24 Unknown Eos % (Auto) 0.1 % 01/14/24 Unknown Baso % (Auto) 0.1 % 01/14/24 Unknown Neut # (Auto) 4.87 K/uL (1.40-6.50) 01/14/24 Unknown Lymph # (Auto) 0.77 K/uL (1.20-3.40) L 01/14/24 Unknown [place] # (Auto) 1.05 K/uL (0.11-0.59) H 01/14/24 Unknown Eos # (Auto) 0.01 K/uL (0.00-0.50) 01/14/24 Unknown Baso # (Auto) 0.01 K/uL (0.00-0.20) 01/14/24 Unknown Immature Gran # (Auto) 0.09 K/uL (0.01-0.20) 01/14/24 Unknown PT 13.8 Seconds (9.0-12.0) H 01/14/24 Unknown INR 1.3 (0.9-1.1) H 01/14/24 Unknown APTT 27 Seconds (21-31) 01/14/24 Unknown PTT Ratio 1.0 01/14/24 Unknown VBG pH 7.35 (7.36-7.41) L 01/14/24 17:04 VBG pCO2 49 mmHg (38-50) 01/14/24 17:04 VBG pO2 24 mmHg 01/14/24 17:04 VBG HCO3 27 mmol/L 01/14/24 17:04 VBG O2 Saturation < 60.0 % 01/14/24 17:04 VBG Base Excess 0.8 mEq/L 01/14/24 17:04 Sodium 134 mmol/L (136-145) L 01/14/24 Unknown Potassium 4.7 mmol/L (3.5-5.1) 01/14/24 Unknown Chloride 98 mmol/L (98-107) 01/14/24 Unknown Carbon Dioxide 27 mmol/L (21-32) 01/14/24 Unknown Anion Gap 9 (3-11) 01/14/24 Unknown BUN 66 mg/dl (6-23) H 01/14/24 Unknown Creatinine 2.00 mg/dl (0.6-1.2) H 01/14/24 Unknown Est Cr Clr Drug Dosing 24.0 ml/min 01/14/24 Unknown eGFR 25.73 01/14/24 Unknown BUN/Creatinine Ratio 33.0 (10-20) H 01/14/24 Unknown Glucose 248 mg/dl (70-99(Fasting)) H 01/14/24 Unknown POC Glucose 258 mg/dl (70-99) H 01/14/24 16:14 Lactate 1.2 mmol/L (0.4-2.0) 01/14/24 16:39 Calcium 9.3 mg/dl (8.6-10.3) 01/14/24 Unknown Magnesium 1.8 mg/dl (1.7-2.4) 01/14/24 Unknown Total Bilirubin 1.3 mg/dl (0.2-1.0) H 01/14/24 Unknown Direct Bilirubin 0.4 mg/dl (0-0.2) H 01/14/24 Unknown AST 22 U/L (13-39) 01/14/24 Unknown ALT 24 U/L (7-52) 01/14/24 Unknown Alkaline Phosphatase 113 U/L (34-104) H 01/14/24 Unknown Troponin I High Sens 39.0 pg/ml (0-14) H 01/14/24 Unknown B-Natriuretic Peptide > 4700 pg/ml (0-100) H 01/14/24 16:39 Total Protein 7.7 gm/dl (6.0-8.3) 01/14/24 Unknown Albumin 3.5 gm/dl (3.4-5.0) 01/14/24 Unknown Procalcitonin 0.23 ng/ml (0-0.5) 01/14/24 Unknown Urine Color Yellow 01/14/24 18:07 Urine Appearance Clear (Clear) 01/14/24 18:07 Urine pH 5.0 (4.5-7.5) 01/14/24 18:07 Ur Specific [place] 1.014 (1.000-1.030) 01/14/24 18:07 Urine Protein 1+ (Negative) H 01/14/24 18:07 Urine Glucose (UA) Negative (Negative) 01/14/24 18:07 Urine Ketones Negative (Negative) 01/14/24 18:07 Urine Blood Negative (Negative) 01/14/24 18:07 Urine Nitrite Negative (Negative) 01/14/24 18:07 Urine Bilirubin Negative (Negative) 01/14/24 18:07 Urine Urobilinogen Negative (Negative) 01/14/24 18:07 Ur Leukocyte Esterase Negative (Negative) 01/14/24 18:07 Urine WBC (Auto) 0-5 /hpf (0-5) 01/14/24 18:07 Urine RBC (Auto) 3-5 /hpf (0-2) H 01/14/24 18:07 U Hyaline Cast (Auto) 0-2 /lpf (0-2) 01/14/24 18:07 U Epithel Cells (Auto) 3-5 /hpf (0-2) H 01/14/24 18:07 Urine Bacteria (Auto) None Seen (None Seen) 01/14/24 18:07 Blood Type A Positive 01/14/24 17:04 Antibody Screen NEGATIVE 01/14/24 17:04 Impressions Chest X-Ray 01/14/24 16:23 XR chest 1V portable HISTORY: 73 years-old Female Sepsis COMPARISON: 12/30/2023 TECHNIQUE: AP view of the chest FINDINGS: Cardiac silhouette is enlarged. Patient is side bent. Single lead right subclavian pacer/AICD. Cardiomegaly. Atherosclerosis of the aorta. Right greater than left layering pleural effusions with bibasilar opacities. Pulmonary vascular congestion. IMPRESSION: 1. Cardiomegaly with pulmonary vascular congestion. 2. Right greater then left layering pleural effusions with bibasilar opacities which may represent atelectasis versus pneumonitis. ACT 112: Negative or not required by law. The above report was generated using voice recognition software. It may contain grammatical, syntax or spelling errors. Electronically signed by: Sergei Marino M.D. 01/14/2024 5:02 PM Abdomen/Pelvis CT 01/14/24 16:24 CT SCAN OF THE ABDOMEN AND PELVIS WITHOUT IV CONTRAST CLINICAL HISTORY: Fall. COMPARISON STUDY: Abdominal CT dated 12/30/2023. TECHNIQUE: CT scan of the abdomen and pelvis is performed from the lung bases to the proximal femora. Images are reviewed in the axial, sagittal, and coronal planes. IV contrast was not administered for this examination. Note that the examination was performed in significantly suboptimal fashion without IV co ntrast in the setting of trauma. The examination is degraded by motion artifact, as well as by streak artifact from the arms which could not be elevated above the abdomen. There is also suboptimal positioning within the CT gantry. A dose lowering technique was utilized adhering to the principles of ALARA. FINDINGS: Lung bases: The heart is enlarged noting a small pericardial effusion. A pacema ker lead is in place. There is coronary artery atherosclerosis. There is diminished attenuation of the cardiac blood pool as compared to the myocardium suggesting anemia. There are right larger than left pleural effusions with dependent consolidation. A small hiatal hernia is observed. Liver: The unenhanced liver is normal in size, contour, and attenuation. There is no intrahepatic biliary ductal dilatation. Gallbladder: The gallbladder decompressed and the wall appears thickened and edematous. Spleen: Normal in size and attenuation. Pancreas: The unenhanced pancreas is moderately atrophic and grossly unremarkable. Adrenal glands: Nodular thickening of the adrenal glands is similar to previous. Kidneys: The unenhanced kidneys demonstrate mild cortical atrophy and are without hydronephrosis. There are no renal calculi identified. There is no evidence of contour deforming renal mass lesion. Abdominal vasculature: The abdominal aorta is normal in course and caliber noting advanced atherosclerotic calcification. Bowel: There is mild clonic diverticulosis without CT evidence of acute diverticulitis. No bowel obstruction is seen. Eofa-[id number] fecal retention is noted throughout the colon. The appendix is not visualized and reported surgically absent. Peritoneum: No intraperitoneal free air is identified. There is a small volume of pelvic ascites. Lymphadenopathy: None. Pelvic viscera: The bladder is mildly distended but otherwise normal in appearance. Uterus and adnexa are normal as visualized. Skeletal structures: The skeletal structures are osteopenic. Again seen is a subacute burst type compression fracture of T11 with [id number] loss of height. Fracture involves the posterior elements, extending through both pedicles of T11 as well as the spinous process of T10. There is no significant retropulsion of fragments. Paravertebral edema persists. A chronic compression deformity of T12 is unchanged from older examinations. There are subacu te/healing left anterior rib fractures. No additional acute fracture is seen involving the lumbosacral spine. The bony pelvis and proximal femora appear intact. There is mild to moderate lumbosacral spondylosis. Sclerotic changes noted in the sacroiliac joints. No lytic or blastic lesions are seen. Soft tissues: There is body wall edema. IMPRESSION: 1. Significantly suboptimal examination without IV contrast. There is also streak and motion artifact. 2. There is no evidence of solid organ injury in the abdomen or pelvis on this unenhanced examination. 3. Again seen is a subacute type burst compression fracture of T11. There is mild/moderate loss of height, with no significant retropulsion of fragments. 4. Fracture involves the posterior elements of T11 extending through both pedicles, as well as the spinous process of T10. This fracture is likely unstable. 5. No additional acute fracture is identified. 6. Cardiomegaly and cardiac pacemaker. 7. There is evidence of fluid overload with a small volume of pelvic ascites, right larger than left pleural effusions with dependent consolidation, and anasarca of the body wall. 8. The gallbladder is contracted and the wall appears thickened and edematous. This is similar in appearance to previous. Correlate with clinical laboratory findings. 9. Additional findings as above. ACT 112: Negative or not required by law. Electronically signed by: Nicolas Wang M.D. 01/14/2024 6:[address] 01/14/24 16:24 CT SCAN OF THE CERVICAL SPINE CLINICAL HISTORY: Fall. COMPARISON STUDY: CT scan of the cervical spine dated 07/05/2023. TECHNIQUE: CT scan of the cervical spine is performed from the skull base to the upper thoracic spine. Images are reviewed in the axial, sagittal, and coronal planes. IV contrast was not administered for this examination. A dose lowering technique was utilized adhering to the principles of ALARA. FINDINGS: Skeletal structures: The skeletal structures are osteopenic. There is no evidence of fracture or subluxation involving the cervical spine. Vertebral body height and alignment are maintained. The odontoid process and lateral masses are intact. The atlantoaxial articulation is preserved noting mild productive degenerative change. The spinous processes appear intact. Intervertebral discs: There is mild/moderate disc space narrowing at C6-C7. The remaining disc spaces are maintained. Central canal: A posterior disc osteophyte complex at C6-C7 may contribute to acquired compromise of the central canal. Soft tissues: The prevertebral and paraspinous soft tissues are within normal limits. There is atherosclerotic calcification of the carotid bulbs. Calvarium: The visualized calvarium at the skull base appears intact. Brain parenchyma: Partially visualized brain parenchyma at the skull base is within normal limits. Sinuses and mastoids: There is trace mucosal thickening in the left maxillary antrum. The mastoid air cells are well pneumatized. Cerumen is noted in the external auditory canals. Lung apices: A right pleural effusion is partially imaged. IMPRESSION: 1. There is no evidence of cervical spine fracture or subluxation. 2. A right pleural effusion is partially visualized. Electronically signed by: Nicolas Wang M.D. 01/14/2024 5:46 PM Femur X-Ray 01/14/24 16:24 XR femur LT 2V routine HISTORY: 73 years-old Female fall acute pain of the left lower extremity status post fall COMPARISON: Pelvis radiograph same day TECHNIQUE: 2 views of the left femur FINDINGS: Arterial calcifications. Suboptimal evaluation of the knee secondary to positioning. Questioned cortical irregularity of the posterior proximal tibia on the lateral view which may correlate with the lateral tibial plateau on the frontal projection. Mild osteoarthritis of the hip and knee without acute fracture or dislocation identified by radiography. IMPRESSION: 1. No acute femoral fracture or dislocation identified. 2. Suboptimal evaluation of the knee secondary to positioning. Equivocal cortical irregularity of the posterior lateral tibial plateau. Dedicated knee radiographs recommended in order to exclude an acute nondisplaced fracture. ACT 112: Negative or not required by law. The above report was generated using voice recognition software. It may contain grammatical, syntax or spelling errors. Electronically signed by: Sergei Marino M.D. 01/14/2024 5:[address] 01/14/24 16:24 CT SCAN OF THE BRAIN WITHOUT IV CONTRAST CLINICAL HISTORY: Fall. COMPARISON STUDY: CT of the brain dated 01/02/2024. TECHNIQUE: Unenhanced axial CT scan of the brain is performed from the vertex to the skull base. A dose lowering technique was utilized adhering to the principles of ALARA. CT DOSE: 2577.8 mGy.cm FINDINGS: Brain parenchyma: There is age-related involutional change noting moderate confluent subcortical and periventricular microangiopathic disease. There is no hemorrhage, mass effect, or evidence of acute territorial ischemia by CT criteria. Espinoza-white matter differentiation is preserved. No extra-axial fluid collection is seen. Ventricles, sulci, cisterns: Prominent secondary to involutional change. Intracranial vasculature: There is atherosclerotic calcification of the caver[place] us carotid and vertebral arteries. Calvarium: Unremarkable. Sinuses and mastoids: There is trace mucosal thickening in the left maxillary antrum. The remaining visualized paranasal sinuses are clear. The mastoid air cells are well pneumatized. Orbits: The bony orbits are grossly intact. There are bilateral ocular lens implants. IMPRESSION: There is no hemorrhage, mass effect, or evidence of acute territorial ischemia by CT criteria. ACT 112: Negative or not required by law. Electronically signed by: Nicolas Wang M.D. 01/14/2024 5:43 PM Pelvis X-Ray 01/14/24 16:24 SINGLE VIEW PELVIS CLINICAL HISTORY: Fall. FINDINGS: 2 AP, portable, supine pelvic radiographs are compared to study dated 03/07/2022. The examination is degraded by patient rotation. The skeletal structures are osteopenic. There is no radiographic evidence of acute fracture involving the hips or bony pelvis. [id number] arthritic change and joint space narrowing is seen in the hips. There is degenerative sclerosis of the sacroiliac joints and pubic symphysis. The overlying soft tissues are within normal limits. Advanced atherosclerotic calcification is seen in the femoral arteries. IMPRESSION: No acute bony abnormality is identified. Electronically signed by: Nicolas Wang M.D. 01/14/2024 5:06 PM Knee X-Ray 01/14/24 17:09 LEFT KNEE 2 VIEWS CLINICAL HISTORY: Fall. FINDINGS: Crosstable AP and lateral views of the left knee are obtained. No prior studies are available for comparison at the time of dictation. The sk eletal structures are osteopenic. There is no radiographic evidence of acute fracture. There is mild tricompartmental degenerative joint space narrowing. No joint effusion is seen. There is mild prepatellar soft tissue swelling. Advanced atherosclerotic calcification is seen in the popliteal artery. IMPRESSION: Soft tissue swelling with no acute bony abnormality identified. Electronically signed by: Nicolas Wang M.D. 01/14/2024 6:26 PM Code Status & VTE Plan VTE Prophylaxis Plan VTE Prophylaxis will be ordered: Yes (2) CHF (congestive heart failure) Heart failure chronicity: acute Heart failure type: unspecified Qualified Code(s): I50.9 - Heart failure, unspecified
[2024-01-14] MEDS ORDERED: GLUCOSE 40% GEL 15 GM TUBE PO PRN (20:39)
[2024-01-14] MEDS ORDERED: GLUCOSE 10 TAB/TUBE PO PRN (20:39)
[2024-01-14] MEDS ORDERED: DEXTROSE 50% 50 ML SYRINGE IV PRN (20:39)
[2024-01-14] MEDS ORDERED: CARBOHYDRATES FOR HYPOGLYCEMIA PO PRN (20:39)
[2024-01-14] MEDS ORDERED: GLUCAGON FOR INJ 1 MG VIAL SQ PRN (20:39)
[2024-01-14] MEDS: ACETAMINOPHEN 500 MG TAB PO SCH (21:01)
[2024-01-14] MEDS: POLYETHYLENE (MIRALAX) 17 GM PACK PO SCH (21:02)
[2024-01-14] MEDS: INSULIN ASPART PER UNIT CHARGE SC SCH (21:16)
[2024-01-14] MEDS: LANTUS PER UNIT CHARGE SQ SCH (21:17)
[2024-01-14] MEDS: HEPARIN SOD 5,000 UNIT/0.5 ML VIAL SQ SCH (21:17)
[2024-01-14] MEDS: traMADol HCL 50 MG TABLET PO PRN (21:18)
--- NOTE | 2024-01-14 21:34 | XRay Report ---
RIGHT HIP 2 VIEWS CLINICAL HISTORY: Fall. Right hip pain. FINDINGS: AP and frog-leg views of the right hip are correlated with pelvic x-ray and CT performed e same day 01/14/2024. The skeletal structures are osteopenic. There is no radiographic evidence of ac robert fracture involving the right hip or the visualized right hemipelvis. Mild arthritic change is in the right hip. There is degenerative sclerosis of the sacroiliac joints. The overlying soft tissues a re within normal limits. Advanced atherosclerotic calcification is seen in the right femoral artery. IMPRESSION: No acute bony abnormality is identified. Electronically signed by: Nicolas Wang M.D. 01/14/2024 9:31 PM
[2024-01-14] MEDS: GABAPENTIN 100 MG CAP PO SCH (21:59)
[2024-01-14] MEDS: METOPROLOL SUCC 50MG EXT REL TAB PO SCH (21:59)
[2024-01-14] MEDS: SERTRALINE HCL 50 MG TABLET PO SCH (22:00)
[2024-01-14] MEDS ORDERED: HYDROmorphone INJ 0.5 MG/0.5 ML SYR IV PRN (22:13)
--- NOTE | 2024-01-14 22:44 | CT Scan Report ---
Exam(s): CT L SPINE EXAM: CT Lumbar Spine Without Intravenous Contrast CLINICAL HISTORY: Reason for exam: lower back pain. TECHNIQUE: Axial computed tomography images of the lumbar spine without intravenous contrast. CTDI is 22.91 mGy and DLP is 484.14 mGy-cm. Automated exposure control was utilized for the study. A dose lowering technique was utilized adhering to the principles of ALARA. COMPARISON: Prior plain film images of the lumbar spine from December 28, 2021. FINDINGS: Vertebrae: Unremarkable. No evidence of acute lumbar spine fracture. There is an acute 2 column superior endplate fracture of the T11 vertebral body with 33% loss of vertebral body height. There is a remote fracture deformity of the T12 vertebral body. There is moderate right and mild left sacroiliac joint arthropathy. Discs/spinal canal/neural foramina: No acute findings. No spinal canal stenosis. Soft tissues: Bilateral pleural effusions and lower lobe consolidations. IMPRESSION: No evidence of acute lumbar spine pathology. There is an acute 2 column fracture of the T11 vertebral body with 33% loss of vertebral body height. This fracture is amenable to vertebroplasty or kyphoplasty. Electronically signed by: Radha Pa MD 01/14/24 22:43 PM
[2024-01-15] MEDS ORDERED: Nursing to Pharmacy Communication SCH (05:45)
[2024-01-15] MEDS: LIDOCAINE 5% 1 PATCH TD SCH ×2 (05:52→09:04)
[2024-01-15] MEDS: ISOSORBIDE DINITRATE 5 MG TAB PO SCH (05:55)
[2024-01-15] MEDS: traMADol HCL 50 MG TABLET PO PRN (05:56)
[2024-01-15 07:07] LABS: Hemoglobin 10.9 g/dl (12.0-16.0); Mean Corpuscular Hemoglobin 32.3 pg (25.0-34.0); Mean Corpuscular Hgb Conc 32.1 g/dL (32.0-36.0); Mean Corpuscular Volume 100.9 fL (80.0-100.0); Platelet Count 91 K/uL (130-400); RDW Coefficient of Variation 16.9 % (11.5-14.5); RDW Standard Deviation 62.3 fL (36.4-46.3); Red Blood Count 3.37 M/uL (4.20-5.40); White Blood Count 7.06 K/ul (4.8-10.8)
[2024-01-15 07:47] LABS: Albumin Globulin Ratio 0.8 (0.9-2); Albumin Level 3.3 gm/dl (3.4-5.0); BUN Creatinine Ratio 36.4 (10-20); Bilirubin,Total 1.1 mg/dl (0.2-1.0); Calcium 9.1 mg/dl (8.6-10.3); Creatinine Clr Calc Pharmacy 22.8 ml/min; Potassium 4.2 mmol/L (3.5-5.1); Total Protein 7.3 gm/dl (6.0-8.3)
--- OUTSIDE RECORDS SUMMARY | 2024-01-15 08:12 | External Medical Summary | Summary of Care ---
Author Name Unknown Organization [facility] Address [address] [place] [address] Phone [phone] Care Team Providers Care Lead Investigator Name Role Phone Melissa Hand MD Primary Care Prov ider Reason for Visit * Reason Comments Hospital Follow-Up Pt states feeling "m iserable", headache and pack pain. Encounter Details Date Type Department Care Team (Latest Contact Info) Description 01/09/2024 12:20 PM EDT Office Visit Family Medicine [address] [phone] Kyree Sainz MD [address] [address] [place] [address] Type 2 diabetes mellitus with stage 4 chronic kidney disease, with long-term current use of insulin ([facility]; Coccyx pain; Sacral back pain; CKD (chronic kidney disease), stage IV ([facility]); Nocturnal hypoxemia; Essential hypertension with goal blood pressure less than 130/80; Ischemic cardiomyopathy Allergies Active Allergy Reactions Criticality Noted Date Comments Lisinopril Cough Low 04/25/2020 High potassium documented as of this encounter (statuses as of 01/09/2024) Medications Medication Sig Dispensed Refills Start Date [...] per day 200 Each 3 01/06/2023 Active Trulicity 0.75 MG/0.5ML Subcutaneous Solution Pen-injector (Dulaglutide)Indic ations:Type 2 diabetes mellitus with stage 4 chronic kidney disease, with long-term current use of insulin (HCC) Inject 0.75 mg under the skin once a week. 2 mL 11 05/15/2023 Active Aspirin Low Dose 81 MG Oral Tablet Delayed Release (aspirin enteric coated) TAKE ONE TABLET BY MOUTH EVERY DAY 90 Tablet 3 05/18/2023 Active Sertraline HCl 100 MG Oral Tablet [...] dx e11.22 300 Strip 1 07/31/2023 Active Torsemide 10 MG Oral Tablet (Demadex)Indicatio ns:Anemia of chronic renal failure, stage 4 (severe) ([facility]) Take 2 Tablets by mouth in the morning. 90 Tablet 3 10/25/2023 Active Additional Information Patient taking differently: 10 mgOral Daily(AM), Reported on 01/09/2024 Metoprolol Succinate ER 50 MG Oral Tablet Extended Release 24 Hour (toPROL XL)Indications:Chr onic systolic congestive heart failure ([facility]) TAKE ONE TABLET BY MOUTH IN [...] as directed.. 14 Tablet 3 11/06/2023 Active Mirtazapine 15 MG Oral Tablet (Remeron)Indicatio ns:Recurrent major depressive disorder, in full remission ([facility]),Poor appetite TAKE ONE TABLET BY MOUTH AT BEDTIME 30 Tablet 5 12/17/2023 Active Basaglar KwikPen 100 UNIT/ML Subcutaneous Solution Pen-injector (Insulin Glargine Solostar) inject 15 units under the skin at bedtime 15 mL 1 12/30/2023 Active oxyCODONE HCl 5 MG Oral Tablet (Oxy IR) 1 Tablet. 01/03/2024 Active Gabapentin 100 MG Oral Capsule (Neurontin)Indicat ions:Coccyx pain,Sacral back pain one pill three times a day 90 Capsule 5 01/09/2024 Active Trulicity 1.5 MG/0.5ML Subcutaneous Solution Pen-injector (Dulaglutide)Indic ations:Type 2 diabetes mellitus with stage 4 chronic kidney disease, with long-term current use of insulin ([facility]) Inject 1.5 mg under the skin once a week. 2 mL 5 05/10/2023 Discontinue d(Medicatio n/Dose Changed) Gabapentin 100 MG Oral Capsule (Neurontin)Indicat ions:Coccyx pain,Sacral back pain TAKE ONE CAPSULE BY MOUTH EVERY DAY 90 Capsule 10/07/2023 Discontinue d(Refill) documented as of this encounter (statuses as of 01/09/2024) Active Problems Problem Noted Date Diagnosed Date [...] as of this encounter (statuses as of 01/09/2024) Resolved Problems Problem Noted Date Diagnosed Date [...] as of this encounter (statuses as of 01/09/2024) Immunizations Name Administration Dates Next Due Influenza, Whole Virus 01/16/2013,04/20/2011 Pneumococcal Conjugate Vacc, 13 Valent (Prevnar) 03/10/2019 Pneumococcal Conjugate Vacci ne, 20-valent ([id number]) 09/19/2021 Pneumococcal Polysaccharide PPV23 (Pneumovax) 09/08/2015 Season [...] Sign Reading Time Taken Comments Blood Pressure 128/70 01/09/2024 12:03 PM EDT Pulse 70 01/09/2024 12:03 PM EDT Temperature - - Respiratory Rate - - Oxygen Saturation 95% 01/09/2024 12:03 PM EDT Inhaled Oxygen Concentration - - Weight - - Height - - Body Mass Index - - documented in this encounter Progress Notes * Kyree Sainz MD - 01/09/2024 11:57 AM EDT Admitted 12/29 to 01/02 [facility] for achy abdominal pain, back pain, nausea, vomiting, headache, cough. DX possible aspiration pneumonia, electrolyte abnormalities, metabolic encephalopathy, acute on chronic CKD. She did have diarrhea this AM and they are picking up probiotics today. She has pain, but really reacts to oxycodone. She is getting nastier. Children manage her care. They wondered about medical cannabis which actually might make sense. He is trying to use Tylenol and a cream and limit the oxycodone. She is fussy about eating and taking her meds Patient Active Problem List Diagnosis Essential hypertension [...] sacrum, limited to breakdown of skin (HCC) Past Medical History: Diagnosis Date AICD (automatic [...] to 25%. mild , moderate MR. [facility] COLONOSCOPY, DIAGNOSTIC (RECTUM) N/A 09/14/2019 biopsies show adenomatous polyps/recall 5 years/Colonoscopy/[facility] EGD, FLEXIBLE, DIAGNOSTIC N/A 09/14/2019 tu holder grade III erosive esophagitis/non-bleeding gastric ulcers/biopsies show mild irritation of stomach/repeat 8 wks/EGD/[facility] LIGATE/CUT OVIDUCT(S) 1985 SINGLE-LEAD DEFIBRILLATOR + REPROGRAM 2016 Review of patient's allergies indicates: Allergen Reactions Lisinopril Cough High potassium Social History Socioeconomic History Marital status: Spouse name: Not on file Number of children: Not on file Years of education: Not on file Highest education level: Not on file Occupational History Not on file Tobacco Use Smoking status: Never Smokeless tobacco: Never Vaping Use Vaping status: Never Used Substance and Sexual Activity Alcohol use: Never Drug use: Never Sexual activity: Not Currently Other Topics Concern Not on file Social History Narrative 2014 Social Determinants of Health Financial Resource Strain: Low Risk (08/05/2023) Financial Resource Strain Do you have any trouble paying for your medications, or do you think you might in the future? (Adult - for ages 18 years and over): No Does your family have trouble paying for medicine? (Household - for ages 0-17 years): Not on file Food Insecurity: No Food Insecurity (08/05/2023) Food Insecurity Do you need food for this week? (Adult - for ages 18 years and over): No Are you able to get enough food for your family? (Household - for ages 0-17 years): Not on file Does your family need food this week? (Household - for ages 0-17 years): Not on file Do you always have enough food for your family? (Household - for ages 0-17 years): Not on file Transportation Needs: No Transportation Needs (08/05/2023) Transportation Needs Do you have trouble getting a ride to medical visits or work? (Adult - for ages 18 years and over):Never True Does your family have a hard time getting a ride to doctors visits? (Household - for ages 0-17 years): Not on file Has lack of transportation kept you from medical appointments, meetings, work, or from getting things needed for daily living? Check all that apply. (Adult - for ages 18 years and over): Not on file Do you (or your family) have trouble finding or paying for a ride (transportation)? (Household - for ages 0-17 years): Not on file Social Connections: Socially Integrated (08/05/2023) Social Connections How often do you feel lonely or isolated from those around you? (Adult - for ages 18 years and over): Never Housing Stability: Low Risk (08/05/2023) Housing Stability Do you currently live in a halfway or have no steady place to sleep at night? (Adult - for ages 18 years and over): No Do you think you are at risk of becoming homeless? (Adult - for ages 18 years and over): No Does your family worry about paying for your home or becoming homeless? (Household - for ages 0-17 years): Not on file Are you homeless or worried that you might be in the future? (Adult - for ages 18 years and over): Not on file Are you (or your family) homeless or worried that you might be in the future? (Household - for ages0-17 years): Not on file Current Outpatient Medications Medication [...] needles per day 200 Each 3 Trulicity 0.75 MG/0.5ML Subcutaneous Solution Pen-injector (Dulaglutide) Inject 0.75 mg under the skin once a week. 2 mL 11 Aspirin Low Dose 81 MG Oral Tablet Delayed Release (aspirin enteric coated) TAKE ONE TABLET BY MOUTH EVERY DAY 90 Tablet 3 Sertraline HCl 100 MG Oral Tablet (Zoloft) [...] mouth in the morning. 90 Tablet 1 FittingRoomTouch VerSpock In Vitro Strip (Glucose Blood) test blood sugar 3 times daily dx e11.22 300 Strip 1 Gabapentin 100 MG Oral Capsule (Neurontin) TAKE ONE CAPSULE BY MOUTH EVERY DAY 90 Capsule 0 Torsemide 10 MG Oral Tablet (Demadex) Take 2 Tablets by mouth in the morning. (Patient taking differently: Take 1 Tablet by mouth in the morning.) 90 Tablet 3 Metoprolol Succinate ER 50 MG Oral Tablet Extended Release 24 Hour (toPROL XL) TAKE ONE TABLET BY MOUTH IN THE MORNING AND BEFORE BEDTIME 180 Tablet 1 Ketoconazole 2 % External Shampoo (Nizoral) massage into scalp and rinse out after five to ten minutes, do 3 times weekly then apply clindamycin gel to open sores if needed 360 mL 2 Sulfamethoxazole-Trimethoprim 800-160 MG Oral Tablet (Bactrim DS) Take 1 Tablet by mouth in the morning and 1 Tablet before bedtime. Use as directed.. 14 Tablet 3 Mirtazapine 15 MG Oral Tablet (Remeron) TAKE ONE TABLET BY MOUTH AT BEDTIME 30 Tablet 5 Basaglar KwikPen 100 UNIT/ML Subcutaneous Solution Pen-injector (Insulin Glargine Solostar) inject 15 units under the skin at bedtime 15 mL 1 oxyCODONE HCl 5 MG Oral Tablet (Oxy IR) 1 Tablet. Trulicity 1.5 MG/0.5ML Subcutaneous Solution Pen-injector (Dulaglutide) Inject 1.5 mg under the skin once a week. (Patient not taking: Reported on 10/25/2023) 2 mL 5 No current facility-administered medications for this visit. Lab Results Component Value Date/Time HEMOGLOBIN A1C - [facility] 7.7 (H) 10/22/2023 09:42 AM HEMOGLOBIN A1C - [facility] 7.8 (H) 06/14/2023 08:40 AM HEMOGLOBIN A1C - [facility] 8.1 (H) 11/08/2022 10:39 AM HEMOGLOBIN A1C - [facility] 6.4 (H) 04/25/2020 02:16 PM HEMOGLOBIN A1C - [facility] 9.4 (H) 11/16/2019 02:03 PM HEMOGLOBIN A1C - [facility] 6.6 (H) 08/26/2019 03:00 PM Results for orders placed or performed in visit on 06/14/23 COMPREHENSIVE METABOLIC PANEL Result Value Ref Range BUN 85 (H) 6 - 20 mg/dL CREATININE 2.3 (H) 0.5 - 1.0 mg/dL EGFR 22 (L) >=60 mL/min SODIUM 139 135 - 146 mmol/L POTASSIUM 5.1 3.5 - 5.1 mmol/L CHLORIDE 97 (L) 98 - 107 mmol/L CO2 27 22 - 32 mmol/L ANION GAP 15 7 - 15 mmol/L GLUCOSE 179 (H) 70 - 120 mg/dL Albumin 4.3 3.8 - 5.0 g/dL AST 41 (H) 10 - 35 U/L Alkaline Phosphatase 164 (H) 35 - 130 U/L Bilirubin, Total 0.9 <=1.2 mg/dL CALCIUM 9.4 8.4 - 10.2 mg/dL Protein 8.1 6.0 - 8.3 g/dL ALT 28 10 - 35 U/L O: Blood pressure 128/70, pulse 70, SpO2 95%. She says she feels lousy. Neck is supple without adenopathy or thyromegaly. Chest is symmetrical and moves normally. The lungs are clear without wheezes,rales, rhonchi or rubs, and the heart is regular without murmurs or gallops, or ectopy. PMI not displaced. No pedal edema A: Type 2 diabetes mellitus with stage 4 chronic kidney disease, with long-term current use of insulin (HCC) (Primary) Coccyx pain - Gabapentin 100 MG Oral Capsule (Neurontin); one pill three times a day Sacral back pain - Gabapentin 100 MG Oral Capsule (Neurontin); one pill three times a day CKD (chronic kidney disease), stage IV (HCC) Nocturnal hypoxemia Essential hypertension with goal blood pressure less than 130/80 Ischemic cardiomyopathy Continue other meds as before. Follow Up: Return if symptoms worsen or fail to improve. documented in this encounter Plan of Treatment Upcoming Encounters Date Type Department Care Team (Late st Contact Info) Description 01/17/2024 10:00 AM EDT Office Visit Hepatology, [facility] [address] [facility] [place] [address] Jaclyn Jay MD [address] [place] [address] 01/24/2024 9:30 AM EDT Cardiac Studies Cardiology, [facility] [address] [facility] [address] [place] [address] 02/18/2024 2:45 PM EST Office Visit Hematology/Oncology [facility] [address] [facility] [place] [phone] Blayne Caruso MD [address] [facility] [place] [place] [address] 03/09/2024 3:45 PM EST Office Visit Urology, [facility] 132 [facility] [place] [address] Zbigniew Holder MD [address] [place] [phone] 03/16/2024 8:00 AM EST Office Visit Family Medicine [address] [place] [phone] Melissa Hand MD [address] [place] [address] [place] [address] 06/09/2024 2:20 PM EST Office Visit Nephrology [address] [place] [address] Nancy Shahid MD 200 [facility], [place] [address] 09/09/2024 1:20 PM EDT Office Visit Dermatology [address] [place] [address] Gaby Pitt PA-C [address] [place] [address] [place] [address] Health Maintenance Due Date Last Done Comments [...] long-term current use of insulin (HCC)- Primary Coccyx pain Other disorder of coccyx Sacral back pain Disorders of sacrum CKD (chronic kidney disease), stage IV (HCC) Chronic kidney disease, Stage IV (severe) Nocturnal hypoxemia Hypoxemia Essential hypertension with goal blood pressure less than 130/80 Ischemic cardiomyopathy Other specified forms of chronic ischemic heart disease documented in this encounter Advance Directives Documents on File Type Date Recorded Patient Face Hardener Expl anation POLST 12/20/2022 2:13 PM POLST (Rosen ited DNR) Care Teams Lead Investigator Relationship Specialty Start Date End Date Melissa Hand MD [address] [place] [address] [place] [phone] PCP - General Family Medicine 03/11/19 documented as of this encounter
--- OUTSIDE RECORDS SUMMARY | 2024-01-15 08:12 | External Medical Summary | Summary of Care ---
Author Name Unknown Organization [facility] Address [address] [facility] [place] [address] Phone [phone] Care Team Providers Care Metal Treater Name Role Phone Melissa Hand MD Primary Care Prov ider Reason for Visit * Reason Comments Outpatient Testing Encounter Details Date Type Department Care Team (Late st Contact Info) Description 01/09/2024 12:00 PM EDT Laboratory Laboratory [address] [place] [phone] , Specimen Drop Off [address] [place] [phone] Recurrent UTI Allergies Active Allergy Reactions Criticality [...] at bedtime 15 mL 1 12/30/2023 Active Trulicity 1.5 MG/0.5ML Subcutaneous Solution Pen-injector (Dulaglutide)Indic ations:Type 2 diabetes mellitus with stage 4 chronic kidney disease, with long-term current use of insulin ([facility]) Inject 1.5 mg under the skin once a week. 2 mL 5 05/10/2023 Discontinue d(Medicatio n/Dose Changed) documented as of this encounter (statuses as [...] (Prevnar) 03/10/2019 Pneumococcal Conjugate Vacci ne, 20-valent ([id number]) 09/19/2021 Pneumococcal Polysaccharide PPV23 (Pneumovax) 09/08/2015 Season [...] Care Team (Late st Contact Info) Description 01/09/2024 12:20 PM EDT Office Visit Family Medicine [address] [place] [phone] Kyree Sainz MD [address] [place] [address] [place] [address] Admitted 12/29 to 01/02 [facility] for achy abdominal pain, back pain, nausea, 01/17/2024 10:00 AM EDT Office Visit Hepatology, [facility] 132 [facility] [place] [phone] Jaclyn Jay MD [address] [place] [address] 01/24/2024 9:30 AM EDT Cardiac Studies Cardiology, [facility] 132 [facility] [place] [address] [facility] 132 [facility] [place] [address] 02/18/2024 2:45 PM EST Office Visit Hematology/Oncology [facility] 200 [facility] [address] [place] [phone] Blayne Caruso MD [address] [place] [address] 03/09/2024 3:45 PM EST Office Visit Urology, [facility] 132 [facility] [place] [address] Zbigniew Holder MD [address] [place] [address] 03/16/2024 8:00 AM EST Office Visit Family Medicine [address] [place] [phone] Melissa Hand MD [address] [place] [address] [place] [address] 06/09/2024 2:20 PM EST Office Visit Nephrology [address] [place] [address] Nancy Shahid MD [address] [place] [address] 09/09/2024 1:20 PM EDT Office Visit Dermatology [address] [place] [address] Gaby Pitt PA-C [address] [place] [address] [place] [address] Pending Results Name Type Priority Associated Diagnoses Date /Time CULTURE, URINE, QUANTITATIVE Lab Routine Recurrent UTI 01/09/2024 12:01 PM EDT Health Maintenance Due Date Last [...] 11/08/2022, Additional history exists Phosphate 10/21/2024 10/22/2023, 081 08/2022, 11/08/2022, Additional history exists Nephrology Referral 10/24/2024 [...] on File Type Date Recorded Patient Director Life Sales Expl anation POLST 12/20/2022 2:13 PM POLST (Rosen ited DNR) Care Teams Metal Treater Relationship Specialty Start Date End Date Melissa Hand MD [address] [place] [address] [place] [phone] PCP - General Family Medicine 03/11/19 documented as of this encounter
--- OUTSIDE RECORDS SUMMARY | 2024-01-15 08:12 | External Medical Summary ---
Author Name Unknown Address Unknown Organization K01[facility] [place] [address] [place] [address] Laboratory Report Ordering Provider Test Date Status CLINTON FRANKLIN 01/09/2024 12:01:47 Final Observation Date Value Abnormality Reference (Units) Status Bacteria identified in Specimen by Culture 01/09/2024 12:01:47 No significant growth Final Test: Culture, Urine, Quanti tative
Specimen Source: Urine, Clean Catch
Specimen Type: Urine
Specimen Date: 01/09/2024 1201
Result Date: 01/10/2024 1615
Result Status: Final result
Resulting Lab: [facility]
[address]
[place] [id number]

CULTURE

No significant growth

null Performing Location [facility] [address] [facility] [address]
--- NOTE | 2024-01-15 08:40 | Pain Management Consultation ---
Date of Consultation January 15, 2024 Assessment & Plan (1) Compression fracture of T11 vertebra: Encounter type: subsequent encounter Fracture healing: with routine healing Qualified Code(s): S22.080D - Wedge compression fracture of T11-T12 vertebra, subsequent encounter for fracture with routine healing (2) Weakness: (3) Ambulatory dysfunction: (4) Falls frequently: Plan 1. I will switch Tramadol for Oxycodone as she reported better pain relief and denies any side effects from the medication. 2. Will keep IV Dilaudid if needed for breakthrough pain. 3. Nothing to offer interventionally. 4. Will consult orthopedic spine to see if she m ay be a candidate for a kyphoplasty. 5. Wear TLSO when sitting or standing. 6. Recommend physical therapy. 7. Continue Lidocaine patches. Thank you for the consultation. Please contact with any questions or concerns. History of Present Illness Reason for Consultation: back pain Attending Physician: Kota Garzon MD History of Present Illness This is a 73-year-old female with a chronic history of T12 compression fracture and a subacute T11 compression fracture without any specific injury. Pain is located along the lower thoracic region. She denies any radicular symptoms. Pain is aggravated with any movement. She has been lying supine for pain relief and unable to stand or walk. She was provided with a TLSO back brace to which she is not wearing as she is not sitting or standing. She was admitted to the hospital on 12/30/2023 for acute renal failure, weakness, back pain, aspiration pneumonitis, and worsening confusion. She was discharged on 01/03/2024 and unable to care for self so she returned to the ER yesterday and was again admitted for ambulatory dysfunction and uncontrolled back pain. Case discussed with Dr. Marsha Chanel Allergies Allergy/AdvReac Type Severity Reaction Status Date / Time lisinopril AdvReac Intermediate Cough Verified 12/31/23 10:44 Home Medications Medication Instructions Recorded Confirmed Type aspirin 81 mg tablet,delayed 81 mg PO DAILY 12/24/22 01/14/24 History release gabapentin 100 mg capsule 100 mg PO TID 12/24/22 01/14/24 History insulin glargine 100 unit/mL (3 15 unit subcut HS 12/24/22 01/14/24 History mL) subcutaneous pen (Basaglar KwikPen U-100 Insulin) sertraline 100 mg tablet 150 mg PO HS 12/24/22 01/14/24 History isosorbide dinitrate 10 mg tablet 10 mg PO BID@0700,1200 30 days #60 12/29/22 01/14/24 Rx tabs acetaminophen 325 mg tablet 650 mg PO Q4H PRN Pain 07/05/23 01/14/24 History (Tylenol) cholecalciferol (vitamin D3) 25 25 mcg PO DAILY 07/05/23 01/14/24 History mcg (1,000 unit) capsule (Vitamin D3) cranberry 500 mg capsule 500 mg PO DAILY 07/05/23 01/14/24 History dulaglutide 0.75 mg/0.5 mL 0.75 mg subcut WK 07/05/23 01/14/24 History subcutaneous pen injector (Trulicity) ketoconazole 2 % shampoo 1 ea topical DIRECTED PRN OPEN 07/05/23 01/14/24 History SORES ON HEAD, UNTIL HEALED ketoconazole 2 % topical cream 1 applic topical BID PRN FACIAL 07/05/23 01/14/24 History RASH WHEN FLARES nitroglycerin 0.4 mg sublingual 0.4 mg sublingual DIRECTED PRN 07/05/23 01/14/24 History tablet (Nitrostat) Chest Pain rosuvastatin 10 mg tablet 10 mg PO QAM 07/05/23 01/14/24 History metoprolol succinate 50 mg 50 mg PO BID 12/30/23 01/14/24 History tablet,extended release 24 hr mirtazapine 15 mg tablet 15 mg PO HS 12/30/23 01/14/24 History diclofenac sodium 1 % topical gel 2 g EXT Q6H PRN mid-low back pain 01/03/24 01/14/24 Rx (Voltaren Arthritis Pain) #100 grams torsemide 10 mg tablet 10 mg PO QAM #30 tabs 01/03/24 01/14/24 Rx oxycodone 5 mg tablet 5 mg PO Q6 PRN SEVERE PAIN 7-10 01/14/24 01/14/24 History Patient History Medical History Chronic renal disease, stage IV Pancytopenia Dementia Hypertension Surgical History History of open reduction and internal fixation (ORIF) procedure ankle fx---hardware in place History of bilateral cataract extraction History of tubal ligation History of appendectomy Status post cholecystectomy Family History Mother Family history of diabetes mellitus Brother Family history of diabetes mellitus Sister Family history of diabetes mellitus Other No family history of adverse response to anesthesia Social History Smoking Status: Never smoker Second Hand Exposure: No; Do You Dip or Chew Tobacco: No; Hx Alcohol Use: No Hx Substance Use: No Preferred Language: Pashto Communication Ability: Effective 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 Difficult to have a conversation with the patient as she is drowsy and mildly confused. HEAD/FACE: Normocephalic and atraumatic. EYES: No drainage or conjunctival injection. ENT: Nose without bleeding or discharge. Oral mucosa moist. NECK: Full ROM without apparent pain. No swelling or masses noted. RESPIRATORY: Patient with unlabored breathing. No signs of respiratory distress. CHEST/AXILLA: Chest movement symmetrical. No deformities noted. ABDOMEN/GI: No distension BACK: Refuses movement due to increased pain. SKIN: [place], warm and dry. No rash noted. MS/EXTREMITY: No swelling, no deformities. NEURO: Alert and appears oriented. Speech is fluent. Cranial Nerves are grossly intact. Results (Pain Clinic) Diagnostic Review CT Findings: Exam(s): CT L SPINE EXAM: CT Lumbar Spine Without Intravenous Contrast CLINICAL HISTORY: Reason for exam: lower back pain. TECHNIQUE: Axial computed tomography images of the lumbar spine without intravenous contrast. CTDI is 22.91 mGy and DLP is 484.14 mGy-cm. Automated exposure control was utilized for the study. A dose lowering technique was utilized adhering to the principles of ALARA. COMPARISON: Prior plain film images of the lumbar spine from December 28, 2021. FINDINGS: Vertebrae: Unremarkable. No evidence of acute lumbar spine fracture. There is an acute 2 column superior endplate fracture of the T11 vertebral body with 33% loss of vertebral body height. There is a remote fracture deformity of the T12 vertebral body. There is moderate right and mild left sacroiliac joint arthropathy. Discs/spinal canal/neural foramina: No acute findings. No spinal canal stenosis. Soft tissues: Bilateral pleural effusions and lower lobe consolidations. IMPRESSION: No evidence of acute lumbar spine pathology. There is an acute 2 column fracture of the T11 vertebral body with 33% loss of vertebral body height. This fracture is amenable to vertebroplasty or kyphoplasty. Electronically signed by: Radha Pa MD 01/14/24 22:43 PM
[2024-01-15] MEDS ORDERED: LIDOCAINE 5% 1 PATCH TD SCH (09:00)
--- NOTE | 2024-01-15 09:01 | Cardiology Consultation ---
Date of Consultation January 15, 2024 Assessment & Plan (1) Acute on chronic systolic CHF (congestive heart failure): (2) Pleural effusion: (3) Compression fracture of T11 vertebra: Plan Assessment: 73 year old medically complex female admitted for shortness of breath with acute on chronic HF, and multiple orthopedic concerns. Plan: Acute on chronic systolic failure Pleural effusion -patient with imaging consistent with a right Pleural effusion. S/p Thoracentesis. Repeat xray shows no evidence of post procedure pneumo. -Family reports that her home dose of Torsemide was reduced from 20mg to 10mg daily -Received one time dose of lasix 40mg IV at time of admission. Would restart Lasix 40mg IV Daily starting tomorrow. Will discuss this with Dr. Vyas -Strict I&Os, daily weights and close monitoring of renal function. -Goal Serum K> 4.0 and Serum Mag > 2.0. -Continue metoprolol succinate 50mg PO BID Compression fracture T11 vertebra -Pain management on consult -Patient is to follow with ortho OP Case has been discussed with Dr. Vyas. Further recommendations regarding plan of care as per his assessment. I spent a total of 30 minutes on the date of service in preparation, delivery, documentation of the care provided to the patient excluding any time spent in the performance of separately billed services. GUY Chaney [facility] Cardiology [facility] Supervising Physician Co-Signing Physician Notes Attending attestation: Case reviewed with the advanced practitioner. I have personally performed a history and physical examination on the patient. I have reviewed the advanced practitioner's documentation on the date of service referenced in note, and I agree with, and take responsibility for the plan of care. I spent a total of 20 minutes coordinating, documenting, and providing care for this patient excluding time spent in the performance of separately billed services or time spent by another provider. Jonah Vyas DO History of Present Illness Reason for Consultation: CHF Requesting Physician: [place] hospitalist Attending Physician: Kota Garzon MD History of Present Illness HPI: Patient is a 73 year old female with PMHx significant for ischemic cardiomyopathy with a severely reduced LV systolic function about 15 to 20% status post ICD implantation, CAD, PAD, valvular heart disease (moderate to severe MR/TR), HTN,HLD, JEREMIE, DM2, CKD, and mild dementia that presents to the ED with multiple complaints including shortness of breath, headache, abdominal pain, constipation and back pain. Patient's son, Dandre had presented with patient stating that her pain has been getting progressively worse over the past 5-6 days and she has had a poor appetite with blood sugars in the 400's. He reports that she was recently seen by Cardiology and her lasix dose was decreased from 20mg to 10mg. EKG NSR Rate 77bpm Patient is resting in bed, appropriate to responses, but does tend to repeat herself. She denies any chest pain, pressure or palpitations. She reports that her breathing has improved, but she is just in "so much pain". She complains of back pain. Review of telemetry shows SB/SR with rates 50-60's High sensitivity troponin 43.5 and trending down (39.0). BNP> 4700 Initial chest xray as follows: IMPRESSION: 1. Cardiomegaly with pulmonary vascular congestion. 2. Right greater then left layering pleural effusions with bibasilar opacities which may represent atelectasis versus pneumonia patient had multiple scans of the neck, abdomen/pelvis, femur/knee with no acute processes noted. Imaging did demonstrate increased vacular congestion and a right pleural effusion for which patient underwent a thoracentesis today Allergies Allergy/AdvReac Type Severity Reaction Status Date / Time lisinopril AdvReac Intermediate Cough Verified 12/31/23 10:44 Home Medications Medication Instructions Recorded Confirmed Type aspirin 81 mg tablet,delayed 81 mg PO DAILY 12/24/22 01/14/24 History release gabapentin 100 mg capsule 100 mg PO TID 12/24/22 01/14/24 History insulin glargine 100 unit/mL (3 15 unit subcut HS 12/24/22 01/14/24 History mL) subcutaneous pen (Basaglar KwikPen U-100 Insulin) sertraline 100 mg tablet 150 mg PO HS 12/24/22 01/14/24 History isosorbide dinitrate 10 mg tablet 10 mg PO BID@0700,1200 30 days #60 12/29/22 01/14/24 Rx tabs acetaminophen 325 mg tablet 650 mg PO Q4H PRN Pain 07/05/23 01/14/24 History (Tylenol) cholecalciferol (vitamin D3) 25 25 mcg PO DAILY 07/05/23 01/14/24 History mcg (1,000 unit) capsule (Vitamin D3) cranberry 500 mg capsule 500 mg PO DAILY 07/05/23 01/14/24 History dulaglutide 0.75 mg/0.5 mL 0.75 mg subcut WK 07/05/23 01/14/24 History subcutaneous pen injector (Trulicity) ketoconazole 2 % shampoo 1 ea topical DIRECTED PRN OPEN 07/05/23 01/14/24 History SORES ON HEAD, UNTIL HEALED ketoconazole 2 % topical cream 1 applic topical BID PRN FACIAL 07/05/23 01/14/24 History RASH WHEN FLARES nitroglycerin 0.4 mg sublingual 0.4 mg sublingual DIRECTED PRN 07/05/23 01/14/24 History tablet (Nitrostat) Chest Pain rosuvastatin 10 mg tablet 10 mg PO QAM 07/05/23 01/14/24 History metoprolol succinate 50 mg 50 mg PO BID 12/30/23 01/14/24 History tablet,extended release 24 hr mirtazapine 15 mg tablet 15 mg PO HS 12/30/23 01/14/24 History diclofenac sodium 1 % topical gel 2 g EXT Q6H PRN mid-low back pain 01/03/24 01/14/24 Rx (Voltaren Arthritis Pain) #100 grams torsemide 10 mg tablet 10 mg PO QAM #30 tabs 01/03/24 01/14/24 Rx oxycodone 5 mg tablet 5 mg PO Q6 PRN SEVERE PAIN 7-10 01/14/24 01/14/24 History Patient History Medical History Chronic renal disease, stage IV Pancytopenia Dementia Hypertension Surgical History History of open reduction and internal fixation (ORIF) procedure ankle fx---hardware in place History of bilateral cataract extraction History of tubal ligation History of appendectomy Status post cholecystectomy Family History Mother Family history of diabetes mellitus Brother Family history of diabetes mellitus Sister Family history of diabetes mellitus Other No family history of adverse response to anesthesia Social History Smoking Status: Never smoker Second Hand Exposure: No; Do You Dip or Chew Tobacco: No; Hx Alcohol Use: No Hx Substance Use: No Preferred Language: Maltese Communication Ability: Effective Toby Maker Required: No Beliefs That Will Affect Care: None marital status: / Current Living Situation: Family Current Living Situation Comment: lives in apt beside son How many Children do You have: 3 Other Information That Helps Us Care for You: No Feels Safe at Home: Yes Safety Concerns: Feels Safe At This Time Assistive Devices: Walker and Wheelchair Review of Systems Review of Systems: All systems reviewed & are unremarkable except as noted in HPI & below Physical Exam Constitutional: + ill appearing Neck: normal visual inspection and trachea midline Respiratory: normal respiratory effort; no respiratory distress, no labored breathing and no cough Auscultation: + diminished lung sounds (bilateral bases ); no crackles, no rales, no rhonchi and no wheezes Cardiovascular: Rate/Rhythm: regular rate and regular rhythm Heart Sounds: normal S1, normal S2 and + murmur (+2/6 systolic murmur ) Vessels: no JVD Extremities: + edema (trace BLE) Skin: no rashes, warm and dry Psychiatric: A+Ox3, euthymic affect Affect: + anxious affect Results & Data Vital Signs (Past 12 Hours) Vital Signs Temp Pulse Pulse Resp BP Pulse Ox O2 Del Method 01/15/24 07:41 36.3 C L 62 19 133/63 98 Nasal Cannula 01/15/24 05:58 133/68 01/15/24 03:13 36.3 C L 64 15 125/68 97 Nasal Cannula 01/15/24 03:00 Nasal Cannula 01/14/24 22:49 37.1 C 74 14 129/66 97 Nasal Cannula 01/14/24 22:27 77 O2 Flow Rate 01/15/24 07:41 1 01/15/24 05:58 01/15/24 03:13 1.0 01/15/24 03:00 2 01/14/24 22:49 2.0 01/14/24 22:27 Laboratory Results Cardiac Enzymes 01/14/24 01/14/24 01/14/24 Range/Units 16:39 18:10 Unknown AST 22 (13-39) U/L Lactate Dehydrogenase (86-244) U/L Troponin I High Sens 43.5 H 39.0 H (0-14) pg/ml B-Natriuretic Peptide > 4700 H (0-100) pg/ml 01/15/24 Range/Units 06:24 AST 18 (13-39) U/L Lactate Dehydrogenase 224 (86-244) U/L Troponin I High Sens (0-14) pg/ml B-Natriuretic Peptide (0-100) pg/ml Coagulation 01/14/24 01/14/24 Range/Units 16:39 Unknown PT 13.8 H (9.0-12.0) Seconds APTT 27 (21-31) Seconds B-Natriuretic Peptide > 4700 H (0-100) pg/ml CBC 01/14/24 01/15/24 Range/Units Unknown 06:24 WBC 6.80 7.06 (4.8-10.8) K/ul RBC 3.04 L 3.37 L (4.20-5.40) M/uL Hgb 9.8 L 10.9 L (12.0-16.0) g/dl Hct 31.6 L 34.0 L (37.0-47.0) % Plt Count 93 L 91 L (130-400) K/uL Neut # (Auto) 4.87 (1.40-6.50) K/uL Lymph # (Auto) 0.77 L (1.20-3.40) K/uL [place] # (Auto) 1.05 H (0.11-0.59) K/uL Eos # (Auto) 0.01 (0.00-0.50) K/uL Baso # (Auto) 0.01 (0.00-0.20) K/uL Comprehensive Metabolic Panel 01/14/24 01/15/24 01/15/24 Range/Units Unknown 06:24 08:31 Sodium 134 L 136 (136-145) mmol/L Potassium 4.7 4.2 (3.5-5.1) mmol/L Chloride 98 100 (98-107) mmol/L Carbon Dioxide 27 28 (21-32) mmol/L BUN 66 H 68 H (6-23) mg/dl Creatinine 2.00 H 1.87 H (0.6-1.2) mg/dl Glucose 248 H 174 H (70-99(Fasting)) mg/dl Calcium 9.3 9.1 (8.6-10.3) mg/dl Direct Bilirubin 0.4 H (0-0.2) mg/dl AST 22 18 (13-39) U/L ALT 24 21 (7-52) U/L Alkaline Phosphatase 113 H 112 H (34-104) U/L Total Protein 7.7 7.3 6.9 (6.0-8.3) gm/dl Albumin 3.5 3.3 L 3.1 L (3.4-5.0) gm/dl Intake and Output 01/14/24 01/15/24 01/15/24 22:59 06:59 14:59 Intake Total 260 / 610 350 / 610 Output Total 300 / 750 450 / 750 Balance -40 / -140 -100 / -140 Intake: Oral 260 / 610 350 / 610 Output: Urine 300 / 450 150 / 450 Urine Amount (Catheter) 300 / 300 External 300 / 300 Other: # Unmeasured Voids 1 1 Weight 59.2 kg 59.2 kg Weight Measurement Method Built in [facility] Built in [facility] (3) Compression fracture of T11 vertebra Encounter type: subsequent encounter Fracture healing: with routine healing Qualified Code(s): S22.080D - Wedge compression fracture of T11-T12 vertebra, subsequent encounter for fracture with routine healing
[2024-01-15] MEDS: CHOLECALCIFEROL 25 MCG (1000 UNITS) TAB PO SCH (09:02)
[2024-01-15] MEDS: ROSUVASTATIN CALCIUM 10 MG TAB PO SCH (09:02)
[2024-01-15 09:24] LABS: Albumin Level 3.1 gm/dl (3.4-5.0); Bilirubin,Total 1.1 mg/dl (0.2-1.0); Total Protein 6.9 gm/dl (6.0-8.3)
--- NOTE | 2024-01-15 11:11 | XRay Report ---
XR chest 1V not portable HISTORY: 73 years-old Female s/p rt thora with stat read acute shortness of breath COMPARISON: 01/14/2024 TECHNIQUE: AP view of the chest FINDINGS: Cardiac silhouette is enlarged. Patient is side bent. Single lead right subclavian pacer/AICD. Cardio megaly. Atherosclerosis of the aorta. Decreased size of the previously noted right pleural effusion. No postprocedural pneumothorax. Small pleural effusions with persistent bibasilar densities. Pulmonar y vascular congestion. IMPRESSION: No postprocedural pneumothorax identified. ACT 112: Negative or not required by law. The above report was generated using voice recognition software. It may contain grammatical, syntax o r spelling errors. Electronically signed by: Sergei Marino M.D. 01/15/2024 11:09 AM
[2024-01-15 11:52] LABS: Total Protein Pleural Fluid 3.9 gm/dl
[2024-01-15 13:53] LABS: Appearance Pleural Fluid Bloody; Color Pleural Fluid Red; Lymphocytes, Fluid 12 %; Mono,Macrophage,Mesothelial 57 %; Neutrophils, Fluid 31 %; RBC Pleural Fluid Auto 58000 /uL; Source Pleural Fluid Right Lung; WBC Pleural Fluid Auto 514 /uL
--- NOTE | 2024-01-15 14:30 | Ultrasound Report ---
ULTRASOUND-GUIDED RIGHT THORACENTESIS CLINICAL HISTORY: Right pleural effusion COMPARISON STUDY: Abdominal CT dated 01/14/2024. PROCEDURE: Procedure and risks were explained. Informed consent was obtained. A final timeout was com pleted. The right posterior thorax was prepped and draped in sterile fashion. 1% lidocaine was utiliz ed for skin anesthesia. Utilizing ultrasound guidance, a 5 [place] skater catheter was advanced into the right pleural effusio n. Ultrasound images were obtained. 900 mL of serosanguineous fluid was removed and sent to the lab. The catheter was removed and Band-Aid applied. The patient tolerated the procedure well. A chest x-ra y will be obtained postprocedure and vital signs will be monitored on the floor. IMPRESSION: Right thoracentesis as above. Performed, dictated, and signed by Carson Johnson PA-C; to be co-signed by Dr. Nicolas Wang. Electronically signed by: Nicolas Wang M.D. 01/15/2024 4:04 PM
--- NOTE | 2024-01-15 14:54 | Hospitalist Progress Note ---
Date of Service January 15, 2024 Assessment & Plan (1) Compression fracture of T11 vertebra: (2) CHF (congestive heart failure): (3) Pancytopenia: (4) Ischemic cardiomyopathy: (5) Chronic HFrEF (heart failure with reduced ejection fraction): (6) AICD (automatic cardioverter/defibrillator) present: (7) DM II (diabetes mellitus, type II), controlled: (8) Anxiety and depression: (9) Anemia: (10) Hypertension: Plan Assessment and plan: Acute hypoxic respiratory failure Acute on chronic systolic CHF Right-sided pleural effusion status post thoracentesis Present presented with hypoxia on arrival in the 80s, currently on 2 L of oxygen with improvement Chest x-ray shows bilateral pleural effusion right greater than left Patient underwent thoracentesis with removal of 900 cc of pleural fluid on right side Started on IV Lasix once a day as per cardiology Strict input and output Severe lower back pain T11 compression deformity: Patient presented with similar symptoms in the end of December. Found to have T11 compression fracture; evaluated by orthospine at that time who recommended TLSO brace and repeat x-ray in 2 to [address] on admission shows acute 2 column fracture on T11 vertebral body with 33% loss of vertebral body height. Pain management and orthospine consulted; appreciate recommendation. TLSO brace ordered. Constipation: MiraLAX ordered for today, no BM x 2 days with abdominal pain Dulcolax suppository as needed DM2: Poor appetite, sugar in the 200s, SSI/4 times daily BGM/CTM Lantus 7 units at bedtime ordered, may increase gradually to home dose as needed Hx HTN/CAD/HLD/valvular heart disease: Continue statin/isosorbide/metoprolol Chronic pancytopenia: Heparin subcu every 12 hours, monitor platelets daily Mild dementia: Avoid medications that can worsen mentation such as benzos Redirect as able Patient is a DNR/DNI DVT prophylaxis: Heparin subcu Time spent evaluating patient, direct bedside care, chart review, placing orders, interpretation of diagnostic studies, discussion with consultants, patient, and family members, as well as other required patient management activities is 50 minutes Please note the above document was generated using voice recognition software. It may contain grammatical, syntax or spelling errors. Any formal questions or concerns about the content, text or information contained within the body of this dictation should be directly addressed to the provider for clarification Admission and Anticipated Discharge Date Admission Date: January 14, 2024 Subjective Patient seen and examined at bedside. She is sitting up on the bed eating lunch; She reports significant pain in her lower back No significant events overnight Review of Systems Review of Systems: All systems reviewed & are unremarkable except as noted in Subjective Physical Exam 2 Physical Exam: Constitutional: Alert oriented x 3; not in distress. Respiratory: Bilateral vesicular breath sound. Decreased breath sound on right lower lung field. Cardiovascular: RRR, no murmur, no edema Vessels: no JVD or carotid bruit Chest: normal inspection of chest Abdomen: normal bowel sounds, soft, nontender, no hepatosplenomegaly Musculoskeletal: Tenderness in mid-back Neurologic: PERRL, EOMI, accommodation nl, no face palsy, no dysarthria CN's II- XI intact bilaterally and moves all extremities Psychiatric: A+Ox3, euthymic affect Results & Data Results & Data Vital Signs (Past 12 Hours) Vital Signs Temp Pulse Pulse Resp BP Pulse Ox O2 Del Method 01/15/24 14:04 36.5 C 66 18 123/58 L 99 Nasal Cannula 01/15/24 13:00 36.4 C L 68 18 118/69 100 Nasal Cannula 01/15/24 12:32 70 19 128/63 99 Nasal Cannula 01/15/24 11:59 36.3 C L 69 17 129/66 99 Nasal Cannula 01/15/24 11:31 36.3 C L 67 18 123/59 L 99 Nasal Cannula 01/15/24 08:30 Nasal Cannula 01/15/24 08:30 66 01/15/24 07:41 36.3 C L 62 19 133/63 98 Nasal Cannula 01/15/24 05:58 133/68 01/15/24 03:13 36.3 C L 64 15 125/68 97 Nasal Cannula 01/15/24 03:00 Nasal Cannula O2 Flow Rate 01/15/24 14:04 01/15/24 13:00 2 01/15/24 12:32 01/15/24 11:59 1 01/15/24 11:31 01/15/24 08:30 2 01/15/24 08:30 01/15/24 07:41 1 01/15/24 05:58 01/15/24 03:13 1.0 01/15/24 03:00 2 (1) Compression fracture of T11 vertebra Encounter type: subsequent encounter Fracture healing: with routine healing Qualified Code(s): S22.080D - Wedge compression fracture of T11-T12 vertebra, subsequent encounter for fracture with routine healing (2) CHF (congestive heart failure) Heart failure chronicity: acute Heart failure type: unspecified Qualified Code(s): I50.9 - Heart failure, unspecified
--- NOTE | 2024-01-15 15:08 | Electrocardiogram Report ---
Test Reason : Blood Pressure : */* mmHG Vent. Rate : 74 BPM Atrial Rate : 74 BPM P-R Int : 186 ms QRS Dur : 108 ms QT Int : 424 ms P-R-T Axes : 75 -30 242 degrees QTcB Int : 470 ms Normal sinus rhythm Left axis deviation Minimal voltage criteria for LVH, may be normal variant Prolonged QT Abnormal ECG When compared with ECG of 30-Dec-2023 03:56, [place] interval has decreased Confirmed by Angel Sexton ([id number]) on 01/15/2024 3:08:10 PM Referred By: Confirmed By: Angel Sexton
--- NOTE | 2024-01-15 15:11 | Electrocardiogram Report ---
Test Reason : Blood Pressure : */* mmHG Vent. Rate : 77 BPM Atrial Rate : 77 BPM P-R Int : 184 ms QRS Dur : 104 ms QT Int : 418 ms P-R-T Axes : 81 -16 259 degrees QTcB Int : 473 ms Normal sinus rhythm Possible Left atrial enlargement Pulmonary disease pattern Minimal voltage criteria for LVH, may be normal variant Prolonged QT Abnormal ECG When compared with ECG of 14-Jan-2024 16:19, (unconfirmed) No significant change was found Confirmed by Angel Sexton ([id number]) on 01/15/2024 3:11:21 PM Referred By: REFERRED SELF Confirmed By: Angel Sexton
[2024-01-15] MEDS: ACETAMINOPHEN 325 MG TAB PO PRN (16:04)
--- NOTE | 2024-01-15 16:05 | Pulmonary Consultation ---
Date of Consultation January 15, 2024 Assessment & Plan (1) Pleural effusion: (2) CHF (congestive heart failure): Heart failure chronicity: unspecified Heart failure type: u nspecified Qualified Code(s): I50.9 - Heart failure, unspecified (3) Acute exacerbation of congestive heart failure: Heart failure type: unspecified Qualified Code(s): I50.9 - Heart failure, unspecified Plan 2D echo 12/25/2022: EF 15-20%, moderate to severe MR, moderate-severe TR, RV normal in size and function Chest x-ray 01/14/2024 personally reviewed: Portable film, haziness appreciated in the right hemithorax likely presenting pleural effusion, cardiomegaly, no clear lung infiltrate appreciated -- Acute hypoxic respiratory failure Likely secondary to bilateral pleural effusion because of systolic CHF BNP> 4700 Respiratory BioFire negative for everything --Bilateral pleural effusion Right greater than left Etiology is underlying systolic CHF Plan: Although patient will ultimately require aggressive diuresis to keep the patient negative balance I doubt she will be able to get rid of the right-sided pleural effusion, right- sided thoracentesis to be performed today. O2 supplementation to keep oxygen saturation between 90-92% BiPAP nightly and as needed shortness of breath Please note the above document was generated using voice recognition software. It may contain grammatical, syntax or spelling errors.Any formal questions or concerns about the content, text or information contained within the body of this dictation should be directly addressed to the provider for clarification. History of Present Illness Attending Physician: Kota Garzon MD History of Present Illness 73-year-old female present to the hospital for shortness of breath Past medical history: Systolic CHF, s/p ICD, coronary artery disease, peripheral vascular disease, moderate to severe MR and TR, hypertension, dyslipidemia, JEREMIE, diabetes, CKD Pulmonary consulted for pleural effusion At the time of examination patient was not in any respiratory distress She was saturating 92-93 % on 2 L Denies any chest pain Shortness of breath has improved Denied any headache, did complain of dizziness No fever or chills No night sweats, no unintentional weight loss No nausea vomiting No dysuria, no diarrhea Social history: Lifetime non-smoker Allergies Allergy/AdvReac Type Severity Reaction Status Date / Time lisinopril AdvReac Intermediate Cough Verified 12/31/23 10:44 Home Medications Medication Instructions Recorded Confirmed Type aspirin 81 mg tablet,delayed 81 mg PO DAILY 12/24/22 01/14/24 History release gabapentin 100 mg capsule 100 mg PO TID 12/24/22 01/14/24 History insulin glargine 100 unit/mL (3 15 unit subcut HS 12/24/22 01/14/24 History mL) subcutaneous pen (Basaglar KwikPen U-100 Insulin) sertraline 100 mg tablet 150 mg PO HS 12/24/22 01/14/24 History isosorbide dinitrate 10 mg tablet 10 mg PO BID@0700,1200 30 days #60 12/29/22 01/14/24 Rx tabs acetaminophen 325 mg tablet 650 mg PO Q4H PRN Pain 07/05/23 01/14/24 History (Tylenol) cholecalciferol (vitamin D3) 25 25 mcg PO DAILY 07/05/23 01/14/24 History mcg (1,000 unit) capsule (Vitamin D3) cranberry 500 mg capsule 500 mg PO DAILY 07/05/23 01/14/24 History dulaglutide 0.75 mg/0.5 mL 0.75 mg subcut WK 07/05/23 01/14/24 History subcutaneous pen injector (Trulicity) ketoconazole 2 % shampoo 1 ea topical DIRECTED PRN OPEN 07/05/23 01/14/24 History SORES ON HEAD, UNTIL HEALED ketoconazole 2 % topical cream 1 applic topical BID PRN FACIAL 07/05/23 01/14/24 History RASH WHEN FLARES nitroglycerin 0.4 mg sublingual 0.4 mg sublingual DIRECTED PRN 07/05/23 01/14/24 History tablet (Nitrostat) Chest Pain rosuvastatin 10 mg tablet 10 mg PO QAM 07/05/23 01/14/24 History metoprolol succinate 50 mg 50 mg PO BID 12/30/23 01/14/24 History tablet,extended release 24 hr mirtazapine 15 mg tablet 15 mg PO HS 12/30/23 01/14/24 History diclofenac sodium 1 % topical gel 2 g EXT Q6H PRN mid-low back pain 01/03/24 01/14/24 Rx (Voltaren Arthritis Pain) #100 grams torsemide 10 mg tablet 10 mg PO QAM #30 tabs 01/03/24 01/14/24 Rx oxycodone 5 mg tablet 5 mg PO Q6 PRN SEVERE PAIN 7-10 01/14/24 01/14/24 History Patient History Medical History Chronic renal disease, stage IV Pancytopenia Dementia Hypertension Surgical History History of open reduction and internal fixation (ORIF) procedure ankle fx---hardware in place History of bilateral cataract extraction History of tubal ligation History of appendectomy Status post cholecystectomy Family History Mother Family history of diabetes mellitus Brother Family history of diabetes mellitus Sister Family history of diabetes mellitus Other No family history of adverse response to anesthesia Social History Smoking Status: Never smoker Second Hand Exposure: No; Do You Dip or Chew Tobacco: No; Hx Alcohol Use: No Hx Substance Use: No Preferred Language: Kiswahili Communication Ability: Effective 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 Beliefs That Will Affect Care: None marital status: / Current Living Situation: Family Current Living Situation Comment: lives in apt beside son How many Children do You have: 3 Other Information That Helps Us Care for You: No Feels Safe at Home: Yes Safety Concerns: Feels Safe At This Time Assistive Devices: Walker Review of Systems 2 Review of Systems: All systems reviewed & are unremarkable except as noted in HPI & below Physical Exam 2 Physical Exam: Constitutional: No acute distress HEENT: EOMI, PERRLA Respiratory system: Decreased air entry bilaterally, no wheeze, no rhonchi, positive crackles bilaterally CVS: S1-S2 positive, positive 2 out of 6 systolic murmur appreciated best at aorta Abdomen: Soft, nontender, nondistended, positive bowel sounds x4 Extremities: +2 pulses bilaterally radialis/ dorsalis pedis, no cyanosis, no edema Neuro: Awake alert oriented x3 Psych: Normal mood and affect G/U: Positive Nieto Skin: no rashes, warm and dry Lymphatic: no cervical or axillary lymphadenopathy Results & Data Results & Data Vital Signs (Past 12 Hours) Vital Signs Temp Pulse Pulse Resp BP Pulse Ox O2 Del Method 01/15/24 14:04 36.5 C 66 18 123/58 L 99 Nasal Cannula 01/15/24 13:00 36.4 C L 68 18 118/69 100 Nasal Cannula 01/15/24 12:32 70 19 128/63 99 Nasal Cannula 01/15/24 11:59 36.3 C L 69 17 129/66 99 Nasal Cannula 01/15/24 11:31 36.3 C L 67 18 123/59 L 99 Nasal Cannula 01/15/24 08:30 Nasal Cannula 01/15/24 08:30 66 01/15/24 07:41 36.3 C L 62 19 133/63 98 Nasal Cannula 01/15/24 05:58 133/68 O2 Flow Rate 01/15/24 14:04 01/15/24 13:00 2 01/15/24 12:32 01/15/24 11:59 1 01/15/24 11:31 01/15/24 08:30 2 01/15/24 08:30 01/15/24 07:41 1 01/15/24 05:58 Laboratory Results 01/15/24 06:24 01/15/24 06:24 PG Care Time/CCT Total # of Minutes Spent Total Time Spent with Patient: Total time spent is greater than 50% in coordination of care (as documented) at patient's floor/unit and/or counseling patient: Coding Level of Care Code 53730 INT INP/OBS CARE 3/75MIN Diagnoses Pleural effusion J90 CHF (congestive heart failure) I50.9 Heart failure chronicity: unspecified Heart failure type: unspecified Acute exacerbation of congestive heart failure I50.9 Heart failure type: unspecified
[2024-01-15] MEDS: oxyCODONE HCL IR 5 MG TAB (IMMEDIATE RELEASE) PO PRN (21:21)
[2024-01-16] MEDS: FUROSEMIDE 40 MG/4 ML VIAL IV SCH (07:35)
[2024-01-16] MEDS: ACETAMINOPHEN 325 MG TAB PO SCH (08:38)
--- NOTE | 2024-01-16 08:47 | Cardiology Progress Note ---
Date of Service January 16, 2024 Assessment & Plan (1) Acute on chronic systolic CHF (congestive heart failure): (2) Pleural effusion: (3) Compression fracture of T11 vertebra: Plan Assessment: 73 year old medically complex female admitted for shortness of breath with acute on chronic HF, and multiple orthopedic concerns. Plan: Acute on chronic systolic failure Pleural effusion -patient with imaging consistent with a right Pleural effusion. S/p Thoracentesis. Repeat xray shows no evidence of post procedure pneumo. -Family reports that her home dose of Torsemide was reduced from 20mg to 10mg daily -Received one time dose of lasix 40mg IV at time of admission. Would restart Lasix 40mg IV Daily starting tomorrow. Will discuss this with Dr. Vyas -Strict I&Os, daily weights and close monitoring of renal function. -Goal Serum K> 4.0 and Serum Mag > 2.0. -Continue metoprolol succinate 50mg PO BID Compression fracture T11 vertebra -Pain management on consult -Patient is to follow with ortho OP 01/16/2024: -Patient remains stable from a cardiac perspective. Appears to be diuresing well as her weight is trending down. Inaccurate output measurements as patient had a Purwick device on which was leaking. Encourage Strict I&Os and daily weights. -s/p Thoracentesis 01/15/2024 in which 900cc of fluid was removed. Post procedure xray stable with no evidence of pneumothorax. -close monitoring or renal function which is improving and also to monitor serum electrolytes. -Goal Serum K> 4.0 and Serum Mag > 2.0. -Continue metoprolol succinate 50mg PO BID -Effective pain control of her back pain (compression fracture of the T11 vertebra) per primary team. patient would benefit from PT prior to discharge. Case has been discussed with Dr. Vyas. Further recommendations regarding plan of care as per his assessment. I spent a total of 30 minutes on the date of service in preparation, delivery, documentation of the care provided to the patient excluding any time spent in the performance of separately billed services. GUY [facility] Cardiology [facility] Admission and Anticipated Discharge Date Admission Date: January 14, 2024 Supervising Physician Co-Signing Physician Notes Attending attestation: Case reviewed with the advanced practitioner. I have personally performed a history and physical examination on the patient. I have reviewed the advanced practitioner's documentation on the date of service referenced in note, and I agree with, and take responsibility for the plan of care. Subjectively, ongoing back pain is her most significant complaint. Pain management input noted and appreciated. Continue furosemide 40 mg IV daily. Continue subcutaneous heparin for DVT prophylaxis. I spent a total of 20 minutes coordinating, documenting, and providing care for this patient excluding time spent in the performance of separately billed services or time spent by another provider. Jonah Vyas, Subjective 01/16/2024: Patient seen and examined in follow up today. Feeling fair. Offers no cardiac complaints and denies any shortness of breath. She complains of back pain, abdominal pain and a headache. Labs, vitals, diagnostics, telemetry and documentation reviewed. Telemetry reviewed showing SR 60-70's. No acute events overnight. I&O record reports -3Kg weight deficit. Review of Systems Review of Systems: All systems reviewed & are unremarkable except as noted in HPI & below Physical Exam Constitutional: + ill appearing Neck: normal visual inspection and trachea midline Respiratory: normal respiratory effort; no respiratory distress, no labored breathing and no cough Auscultation: + diminished lung sounds (bilateral bases ); no crackles, no rales, no rhonchi and no wheezes Cardiovascular: Rate/Rhythm: regular rate and regular rhythm Heart Sounds: normal S1, normal S2 and + murmur (+2/6 systolic murmur ) Vessels: no JVD Extremities: + edema (trace BLE) Skin: no rashes, warm and dry Psychiatric: A+Ox3, euthymic affect Affect: + anxious affect Results & Data Vital Signs (Past 12 Hours) Vital Signs Temp Pulse Pulse Resp BP Pulse Ox O2 Del Method 01/16/24 07:30 36.4 C L 78 19 149/69 H 93 Room Air 01/16/24 02:58 36.3 C L 71 18 126/60 96 Room Air 01/16/24 00:47 36.7 C 64 18 108/53 L 98 BiPAP 01/15/24 23:27 67 17 98 01/15/24 21:51 65 O2 Flow Rate 01/16/24 07:30 01/16/24 02:58 01/16/24 00:47 01/15/24 23:27 1 01/15/24 21:51 Laboratory Results CBC 01/16/24 Range/Units 08:48 WBC 7.00 (4.8-10.8) K/ul RBC 3.35 L (4.20-5.40) M/uL Hgb 10.7 L (12.0-16.0) g/dl Hct 34.4 L (37.0-47.0) % Plt Count 88 L (130-400) K/uL Neut # (Auto) 5.34 (1.40-6.50) K/uL Lymph # (Auto) 0.63 L (1.20-3.40) K/uL [place] # (Auto) 0.94 H (0.11-0.59) K/uL Eos # (Auto) 0.01 (0.00-0.50) K/uL Baso # (Auto) 0.00 (0.00-0.20) K/uL Comprehensive Metabolic Panel 01/16/24 Range/Units 08:48 Sodium 138 (136-145) mmol/L Potassium 4.2 (3.5-5.1) mmol/L Chloride 100 (98-107) mmol/L Carbon Dioxide 28 (21-32) mmol/L BUN 61 H (6-23) mg/dl Creatinine 1.75 H (0.6-1.2) mg/dl Glucose 92 (70-99(Fasting)) mg/dl Calcium 8.7 (8.6-10.3) mg/dl Intake and Output 01/15/24 01/16/24 01/16/24 22:59 06:59 14:59 Intake Total 240 / 240 Output Total 0 / 0 Balance 240 / 240 Intake: Oral 240 / 240 Output: # Bowel Movements 0 / 0 Other: # Unmeasured Voids 1 1 Weight 56 kg Weight Measurement Method Built in [facility] (3) Compression fracture of T11 vertebra Encounter type: subsequent encounter Fracture healing: with routine healing Qualified Code(s): S22.080D - Wedge compression fracture of T11-T12 vertebra, subsequent encounter for fracture with routine healing
[2024-01-16 09:32] LABS: Eosinophils # (auto) 0.01 K/uL (0.00-0.50); Eosinophils % (auto) 0.1 %; Hematocrit (blood only) 34.4 % (37.0-47.0); Hemoglobin 10.7 g/dl (12.0-16.0); Immature Granulocytes # (auto) 0.08 K/uL (0.01-0.20); Immature Granulocytes % (auto) 1.1 %; Lymphocytes # (auto) 0.63 K/uL (1.20-3.40); Mean Corpuscular Hemoglobin 31.9 pg (25.0-34.0); Mean Corpuscular Hgb Conc 31.1 g/dL (32.0-36.0); Mean Corpuscular Volume 102.7 fL (80.0-100.0); Mean Platelet Volume 11.3 fL (9.4-12.4); Monocytes # (auto) 0.94 K/uL (0.11-0.59); Monocytes % (auto) 13.4 %; Neutrophils # (auto) 5.34 K/uL (1.40-6.50); Neutrophils % (auto) 76.4 %; Platelet Count 88 K/uL (130-400); RDW Standard Deviation 63.9 fL (36.4-46.3); Red Blood Count 3.35 M/uL (4.20-5.40)
[2024-01-16 10:10] LABS: BUN Creatinine Ratio 34.9 (10-20); Calcium 8.7 mg/dl (8.6-10.3); Creatinine Clr Calc Pharmacy 24.4 ml/min; Potassium 4.2 mmol/L (3.5-5.1)
--- NOTE | 2024-01-16 14:43 | Pulmonology Progress Note ---
Date of Service January 16, 2024 Assessment & Plan (1) Pleural effusion: (2) CHF (congestive heart failure): Heart failure chronicity: unspecified Heart failure type: u nspecified Qualified Code(s): I50.9 - Heart failure, unspecified (3) Acute exacerbation of congestive heart failure: Heart failure type: unspecified Qualified Code(s): I50.9 - Heart failure, unspecified Plan 2D echo 12/25/2022: EF 15-20%, moderate to severe MR, moderate-severe TR, RV normal in size and function Chest x-ray 01/14/2024 personally reviewed: Portable film, haziness appreciated in the right hemithorax likely presenting pleural effusion, cardiomegaly, no clear lung infiltrate appreciated -- Acute hypoxic respiratory failure Likely secondary to bilateral pleural effusion because of systolic CHF BNP> 4700 Respiratory BioFire negative for everything S/p thoracentesis 01/15/2024, 900 mL serosanguineous fluid was removed, cytology was negative for malignancy, transudative as per lights criteria --Bilateral pleural effusion Right greater than left Etiology is underlying systolic CHF Plan: Patient is saturating well on room air Continue with diuresis to keep the patient negative balance O2 supplementation to keep oxygen saturation between 90-92% Continue with BiPAP nightly and as needed shortness of breath No further recommendation from pulmonary perspective, will sign off Please call directly with any questions Please note the above document was generated using voice recognition software. It may contain grammatical, syntax or spelling errors.Any formal questions or concerns about the content, text or information contained within the body of this dictation should be directly addressed to the provider for clarification. Admission and Anticipated Discharge Date Admission Date: January 14, 2024 Subjective Patient seen and examined at bedside. No acute distress, no adverse events overnight. Denies any nausea or vomiting Was complaining of dizziness today Urinating well No abdominal pain Appetite is poor. Review of Systems 2 Review of Systems: All systems reviewed & are unremarkable except as noted in Subjective Physical Exam 2 Physical Exam: Constitutional: No acute distress HEENT: EOMI, PERRLA Respiratory system: Decreased air entry bilaterally, no wheeze, no rhonchi, positive crackles bilaterally CVS: S1-S2 positive, positive 2 out of 6 systolic murmur appreciated best at aorta Abdomen: Soft, nontender, nondistended, positive bowel sounds x4 Extremities: +2 pulses bilaterally radialis/ dorsalis pedis, no cyanosis, no edema Neuro: Awake alert oriented x3 Psych: Normal mood and affect G/U: Positive Nieto Skin: no rashes, warm and dry Lymphatic: no cervical or axillary lymphadenopathy Results & Data Results & Data Vital Signs (Past 12 Hours) Vital Signs Temp Pulse Resp BP Pulse Ox O2 Del Method 01/16/24 11:17 36.6 C 79 18 126/63 95 Room Air 01/16/24 07:30 36.4 C L 78 19 149/69 H 93 Room Air 01/16/24 02:58 36.3 C L 71 18 126/60 96 Room Air Laboratory Results 01/16/24 08:48 01/16/24 08:48 PG Care Time/CCT Total # of Minutes Spent Total Time Spent with Patient: Total time spent is greater than 50% in coordination of care (as documented) at patient's floor/unit and/or counseling patient: Coding Level of Care Code 49070 SUB INP/OBS CARE 2/35MIN Diagnoses Pleural effusion J90 CHF (congestive heart failure) I50.9 Heart failure chronicity: unspecified Heart failure type: unspecified Acute exacerbation of congestive heart failure I50.9 Heart failure type: unspecified
--- NOTE | 2024-01-16 14:46 | Orthopedic Consultation ---
Date of Service January 16, 2024 History of Present Illness Reason for Consultation: T11 compression fracture, low back pain. 73-year-old female with past medical history of chronic systolic heart failure secondary to ischemic cardiomyopathy, EF 15-20%, s/p ICD, CAD, PAD, valvular heart disease, moderate to severe MR/TR, HTN, HLD, JEREMIE, DM2 on insulin, CKD, baseline creatinine 1.72, chronic pancytopenia, mood disorder, mild dementia who presents to the ED today on 01/14/2024 with complaints of shortness of breath and multiple nonspecific complaints including headache, intermittent abdominal pain, constipation, lower back pain. Spoke with the patient's son, Dandre, also liquid center assembler who reports that the patient has a 24-hour aide that stays with her and she is never alone. She has not had falls in the past few months. He reports that she is unable to sit up which she was able to do over the past few months. Reports that she complains of her pain worsening over the past 5-6 days. Also reports poor appetite and a blood sugar in the 400s on 01/13/2024 after a light lunch. Patient's son also reports that the patient was seen by cardiology last week and her torsemide was decreased from 20 mg to 10 mg. He also noted some worsening shortness of breath over the past few days. I was originally consulted on December 31 for the fracture at T11. Patient she reports no new changes relative to her prior complaints with continued low back pain in the region of the compression fracture. She reports she has been utilizing the brace if she is able to put it on herself but is having more pain recently. Exam reveals the patient indicate pain more in the mid lumbar thoracolumbar region, she has appropriate strength though for toe and ankle plantarflexion dorsiflexion, negative straight leg raise bilaterally. Knee extension flexion strength was somewhat compromised due to back pain on exertion but she was able to accomplish this task along with hip flexion. CT abd pelvis wo con December 30, 2023 CLINICAL HISTORY: abd/back pain TECHNIQUE: Helical axial images of the abdomen and pelvis were obtained. Automated dose lowering techniques and/or adjustment according to patient size were utilized for this exam. This exam was performed without intravenous contrast. COMPARISON: Comparison is made to CT abdomen pelvis 07/05/2023 EXAM: CT Lumbar Spine Without Intravenous Contrast January 14, 2024 CLINICAL HISTORY: Reason for exam: lower back pain. TECHNIQUE: Axial computed tomography images of the lumbar spine without intravenous contrast. CTDI is 22.91 mGy and DLP is 484.14 mGy-cm. Automated exposure control was utilized for the study. A dose lowering technique was utilized adhering to the principles of ALARA. COMPARISON: Prior plain film images of the lumbar spine from December 28, 2021. FINDINGS: Vertebrae: Unremarkable. No evidence of acute lumbar spine fracture. There is an acute 2 column superior endplate fracture of the T11 vertebral body with 33% loss of vertebral body height. There is a remote fracture deformity of the T12 vertebral body. There is moderate right and mild left sacroiliac joint arthropathy. Discs/spinal canal/neural foramina: No acute findings. No spinal canal stenosis. Soft tissues: Bilateral pleural effusions and lower lobe consolidations. IMPRESSION: No evidence of acute lumbar spine pathology. There is an acute 2 column fracture of the T11 vertebral body with 33% loss of vertebral body height. This fracture is amenable to vertebroplasty or kyphoplasty. Review of CT scan of the abdomen and pelvis performed on January 14, 2024 at [facility], this my separate interpretation, this reveals the patient to have what appears to be a prior chronic superior endplate compression fracture of T12, and at T11 both approximately about the same with 20 to 30% loss of height. Review of CT scan of the abdomen and pelvis performed on December 30, 2023 at [facility], this my separate interpretation, this reveals the patient to have what appears to be a prior chronic superior endplate compression fracture of T12, now with 1 at T11 both approximately about the same with 20 to 30% loss of height. Impression: Continuation of T11 compression fracture cephalad to prior T12 compression fracture chronic in nature, thoracolumbar pain, no appreciable change. Plan: In talking with the patient, she feels that the pain has developed at least some point over the past month, but she does not note significant change in symptomatology. I discussed with the patient the nature of the injury, specifically that she has 2 compression fractures 1 which I feel is healed the other one is at T11. I have recommended the patient continue her care with a TLSO type brace to be worn when she is up and around, appropriate medications for pain and mobilization with physical therapy. Follow-up x-rays are recommended in the next 2 to 4 weeks. Requesting Physician: . Attending Physician: Kota Garzon MD . Allergies Allergy/AdvReac Type Severity Reaction Status Date / Time lisinopril AdvReac Intermediate Cough Verified 12/31/23 10:44 Home Medications Medication Instructions Recorded Confirmed Type aspirin 81 mg tablet,delayed 81 mg PO DAILY 12/24/22 01/14/24 History release gabapentin 100 mg capsule 100 mg PO TID 12/24/22 01/14/24 History insulin glargine 100 unit/mL (3 15 unit subcut HS 12/24/22 01/14/24 History mL) subcutaneous pen (Basaglar KwikPen U-100 Insulin) sertraline 100 mg tablet 150 mg PO HS 12/24/22 01/14/24 History isosorbide dinitrate 10 mg tablet 10 mg PO BID@0700,1200 30 days #60 12/29/22 01/14/24 Rx tabs acetaminophen 325 mg tablet 650 mg PO Q4H PRN Pain 07/05/23 01/14/24 History (Tylenol) cholecalciferol (vitamin D3) 25 25 mcg PO DAILY 07/05/23 01/14/24 History mcg (1,000 unit) capsule (Vitamin D3) cranberry 500 mg capsule 500 mg PO DAILY 07/05/23 01/14/24 History dulaglutide 0.75 mg/0.5 mL 0.75 mg subcut WK 07/05/23 01/14/24 History subcutaneous pen injector (Trulicity) ketoconazole 2 % shampoo 1 ea topical DIRECTED PRN OPEN 07/05/23 01/14/24 History SORES ON HEAD, UNTIL HEALED ketoconazole 2 % topical cream 1 applic topical BID PRN FACIAL 07/05/23 01/14/24 History RASH WHEN FLARES nitroglycerin 0.4 mg sublingual 0.4 mg sublingual DIRECTED PRN 07/05/23 01/14/24 History tablet (Nitrostat) Chest Pain rosuvastatin 10 mg tablet 10 mg PO QAM 07/05/23 01/14/24 History metoprolol succinate 50 mg 50 mg PO BID 12/30/23 01/14/24 History tablet,extended release 24 hr mirtazapine 15 mg tablet 15 mg PO HS 12/30/23 01/14/24 History diclofenac sodium 1 % topical gel 2 g EXT Q6H PRN mid-low back pain 01/03/24 01/14/24 Rx (Voltaren Arthritis Pain) #100 grams torsemide 10 mg tablet 10 mg PO QAM #30 tabs 01/03/24 01/14/24 Rx oxycodone 5 mg tablet 5 mg PO Q6 PRN SEVERE PAIN 7-10 01/14/24 01/14/24 History Past Med/Surg History Problem List (Updated 01/15/24 @ 08:46 by Valencia Harris PA-C) CHF (congestive heart failure) (Acute) Pleural effusion (Acute) Hypoxia (Acute) Compression fracture of T11 vertebra Postmenopausal bleeding ARF (acute renal failure) (Acute) Thrombocytopenia (Acute) Acute exacerbation of congestive heart failure (Acute) Hypoxia (Acute) Recurrent UTI Cystocele UTI (urinary tract infection) Weakness (Acute) CHF (congestive heart failure) (Acute) SOB (shortness of breath) (Acute) Pedal edema (Acute) Pancytopenia (Acute) Acute on chronic systolic CHF (congestive heart failure) Acute UTI (Acute) Weakness (Acute) Contusion of hip (Acute) Ambulatory dysfunction (Acute) Weakness (Acute) Acute UTI (Acute) Falls frequently (Acute) Sensorineural hearing loss (SNHL) of both ears Encounter for pre-operative examination Arthritis (Chronic) Hypertension (Chronic) Ischemic cardiomyopathy (Chronic) Hypoxia (Acute) Elevated troponin (Acute) Pleural effusion (Acute) CKD (chronic kidney disease) (Acute) Elevated troponin I level Acute worsening of stage 4 chronic kidney disease DVT prophylaxis Thrombocytopenia (Acute) CHF (congestive heart failure) Chronic HFrEF (heart failure with reduced ejection fraction) AICD (automatic cardioverter/defibrillator) present (Chronic) 2017--meditronic @ [facility] Moderate mitral regurgitation (Chronic) Aortic stenosis (Chronic) Chronic systolic heart failure (Chronic) DM II (diabetes mellitus, type II), controlled (Chronic) GERD (gastroesophageal reflux disease) (Chronic) Anxiety and depression (Chronic) Anemia (Chronic) Hyperkalemia (Chronic) Hyperlipidemia LDL goal <70 (Chronic) Medical History Chronic renal disease, stage IV Pancytopenia Dementia Hypertension Surgical History History of open reduction and internal fixation (ORIF) procedure ankle fx---hardware in place History of bilateral cataract extraction History of tubal ligation History of appendectomy Status post cholecystectomy Family History Mother Family history of diabetes mellitus Brother Family history of diabetes mellitus Sister Family history of diabetes mellitus Other No family history of adverse response to anesthesia Social History Smoking Status: Never smoker Second Hand Exposure: No; Do You Dip or Chew Tobacco: No; Hx Alcohol Use: No Hx Substance Use: No Preferred Language: Pashto Communication Ability: Effective Architectural Inspector Required: No Beliefs That Will Affect Care: None marital status: / Current Living Situation: Family Current Living Situation Comment: lives in apt beside son How many Children do You have: 3 Other Information That Helps Us Care for You: No Feels Safe at Home: Yes Safety Concerns: Feels Safe At This Time Assistive Devices: Walker Review of Systems All systems reviewed & are unremarkable except as noted in HPI & below. Physical Exam . Results & Data Results & Data Laboratory Results . Diagnostic Findings . PG Care Time/CCT Total # of Minutes Spent Total Time Spent with Patient: Total time spent is greater than 50% in coordination of care (as documented) at patient's floor/unit and/or counseling patient: Coding Level of Care Code 38995 IN/OBS CONSULT LVL 3,45M
--- NOTE | 2024-01-16 14:49 | Hospitalist Progress Note ---
Date of Service January 16, 2024 Assessment & Plan (1) Compression fracture of T11 vertebra: (2) CHF (congestive heart failure): (3) Pancytopenia: (4) Ischemic cardiomyopathy: (5) Chronic HFrEF (heart failure with reduced ejection fraction): (6) AICD (automatic cardioverter/defibrillator) present: (7) DM II (diabetes mellitus, type II), controlled: (8) Anxiety and depression: (9) Anemia: (10) Hypertension: Plan Assessment and plan: Acute hypoxic respiratory failure Acute on chronic systolic CHF Right-sided pleural effusion status post thoracentesis Present presented with hypoxia on arrival in the 80s, currently on 2 L of oxygen with improvement Chest x-ray shows bilateral pleural effusion right greater than left Patient underwent thoracentesis with removal of 900 cc of pleural fluid on right side Started on IV Lasix once a day as per cardiology Strict input and output Severe lower back pain T11 compression deformity: Patient presented with similar symptoms in the end of December. Found to have T11 compression fracture; evaluated by orthospine at that time who recommended TLSO brace and repeat x-ray in 2 to [address] on admission shows acute 2 column fracture on T11 vertebral body with 33% loss of vertebral body height. Pain management and orthospine consulted; appreciate recommendation. TLSO brace ordered. Constipation: MiraLAX ordered for today, no BM x 2 days with abdominal pain Dulcolax suppository as needed DM2: Poor appetite, sugar in the 200s, SSI/4 times daily BGM/CTM pharmacy on board Hx HTN/CAD/HLD/valvular heart disease: Continue statin/isosorbide/metoprolol Chronic pancytopenia: Heparin subcu every 12 hours, monitor platelets Mild dementia: Avoid medications that can worsen mentation such as benzos Redirect as able Patient is a DNR/DNI DVT prophylaxis: Heparin subcu Please note the above document was generated using voice recognition software. It may contain grammatical, syntax or spelling errors. Any formal questions or concerns about the content, text or information contained within the body of this dictation should be directly addressed to the provider for clarification Admission and Anticipated Discharge Date Admission Date: January 14, 2024 Subjective Patient seen and examined at bedside. Reports lower back pain. No significant events overnight. Review of Systems Review of Systems: All systems reviewed & are unremarkable except as noted in Subjective Physical Exam Physical Exam: Constitutional: Alert oriented x 3; not in distress. Respiratory: Bilateral vesicular breath sound. Decreased breath sound on right lower lung field. Cardiovascular: RRR, no murmur, no edema Vessels: no JVD or carotid bruit Chest: normal inspection of chest Abdomen: normal bowel sounds, soft, nontender, no hepatosplenomegaly Musculoskeletal: Tenderness in mid-back Neurologic: PERRL, EOMI, accommodation nl, no face palsy, no dysarthria CN's II- XI intact bilaterally and moves all extremities Psychiatric: A+Ox3, euthymic affect Results & Data Results & Data Vital Signs (Past 12 Hours) Vital Signs Temp Pulse Resp BP Pulse Ox O2 Del Method 01/16/24 11:17 36.6 C 79 18 126/63 95 Room Air 01/16/24 07:30 36.4 C L 78 19 149/69 H 93 Room Air 01/16/24 02:58 36.3 C L 71 18 126/60 96 Room Air (1) Compression fracture of T11 vertebra Encounter type: subsequent encounter Fracture healing: with routine healing Qualified Code(s): S22.080D - Wedge compression fracture of T11-T12 vertebra, subsequent encounter for fracture with routine healing (2) CHF (congestive heart failure) Heart failure chronicity: acute Heart failure type: unspecified Qualified Code(s): I50.9 - Heart failure, unspecified
--- NOTE | 2024-01-16 20:34 | Palliative Care Consultation ---
Date of Consultation January 16, 2024 Assessment & Plan (1) Dyspnea and respiratory abnormalities: (2) Weakness generalized: (3) Advanced care planning/counseling discussion: 20min face to face with pt at bedside she is very friendly and direct: she does not like being in the hospital, she prefers to be home, she lives with her daughter but worries about being too much for her to manage. She is open to more help at home. She would like to shift focus from being about solving every little issue over to being more about her QOL, being happy/comfortable and staying put at home. Discussed hospice in detail. She is receptive to this and tells me her son also brought this up, so she is happy to hear folks are aligning in agreement. SHe asked me to call her son to further discuss. My attempt to reach him this afternoon was not successful but i will retry tomorrow morning. (4) Palliative care by specialist: Introduced Palliative Medicine and explained our role in patient's care. Patient and/or family were receptive to palliative services for goals of care discussions. Reviewed we are different from hospice, a home health nurse visiting service. (5) Encounter for hospice care discussion: I provided education about the hospice benefit: an interdisciplinary program offered by nurses, nurses aides, social workers, chaplains and a medical insurance claims specialist for patients with a terminal condition and a life expectancy of less than 6 months. This is covered by Medicare at 100%/no out of pocket expense to patient and all meds/supplies needed by patient for the reason they are on hospice are paid for/covered by hospice. The goal is assure quality of life of the patient in their home setting (home, group home, inpatient hospice setting) by providing symptoms management, psychosocial and spiritual support. However, they cannot offer 24 hours care and if the family is unable to provide that care, they will have to consider personal care with out of pocket cost vs. group home placement. We discussed the goals of hospice as a patient service and the goals of care; we discussed EOL trajectories and transitions ernestine the emotional impact of realizing mortality as a concrete reality from prior abstract considerations. Pt was reassured that no matter where they are along this trajectory, they are not alone - their medical team will remain by their side through their journey. Discussed the pros/cons of accepting help when jayson cially weakened and distressed by pain-which would also help provide relief/decrease caregiver burden/strain. Plan as above Thank you for allowing us to participate in the ongoing care of this patient. Please page with any additional concerns. Juliet Villar DNP Director, Palliative Medicine History of Present Illness Reason for Consultation: recurrent admissions,[facility] Attending Physician: Kota Garzon MD History of Present Illness Admitted 01/14/24 after recent 01/03/24 dc [facility] HF and acute on chronic resp failure complains of severe pain to mid lower back, known T11 comp fx as well signif PMH: CAD, HTN, HTN, valvular heart failure/EF 15-20%; CKD; ambulatory dysfxn;, DM, chronic pancytopenia, chronic constipation lives at home with dtr tells me she wants to go back home and stop coming to hospital patient seen bedside, there is no family present Allergies Allergy/AdvReac Type Severity Reaction Status Date / Time lisinopril AdvReac Intermediate Cough Verified 12/31/23 10:44 Home Medications Medication Instructions Recorded Confirmed Type aspirin 81 mg tablet,delayed 81 mg PO DAILY 12/24/22 01/14/24 History release gabapentin 100 mg capsule 100 mg PO TID 12/24/22 01/14/24 History insulin glargine 100 unit/mL (3 15 unit subcut HS 12/24/22 01/14/24 History mL) subcutaneous pen (Basaglar KwikPen U-100 Insulin) sertraline 100 mg tablet 150 mg PO HS 12/24/22 01/14/24 History isosorbide dinitrate 10 mg tablet 10 mg PO BID@0700,1200 30 days #60 12/29/22 01/14/24 Rx tabs acetaminophen 325 mg tablet 650 mg PO Q4H PRN Pain 07/05/23 01/14/24 History (Tylenol) cholecalciferol (vitamin D3) 25 25 mcg PO DAILY 07/05/23 01/14/24 History mcg (1,000 unit) capsule (Vitamin D3) cranberry 500 mg capsule 500 mg PO DAILY 07/05/23 01/14/24 History dulaglutide 0.75 mg/0.5 mL 0.75 mg subcut WK 07/05/23 01/14/24 [facility] ketoconazole 2 % shampoo 1 ea topical DIRECTED PRN OPEN 07/05/23 01/14/24 History SORES ON HEAD, UNTIL HEALED ketoconazole 2 % topical cream 1 applic topical BID PRN FACIAL 07/05/23 01/14/24 History RASH WHEN FLARES nitroglycerin 0.4 mg sublingual 0.4 mg sublingual DIRECTED PRN 07/05/23 01/14/24 History tablet (Nitrostat) Chest Pain rosuvastatin 10 mg tablet 10 mg PO QAM 07/05/23 01/14/24 History metoprolol succinate 50 mg 50 mg PO BID 12/30/23 01/14/24 History tablet,extended release 24 hr mirtazapine 15 mg tablet 15 mg PO HS 12/30/23 01/14/24 History diclofenac sodium 1 % topical gel 2 g EXT Q6H PRN mid-low back pain 01/03/24 01/14/24 Rx (Voltaren Arthritis Pain) #100 grams torsemide 10 mg tablet 10 mg PO QAM #30 tabs 01/03/24 01/14/24 Rx oxycodone 5 mg tablet 5 mg PO Q6 PRN SEVERE PAIN 7-10 01/14/24 01/14/24 History Patient History Medical History Chronic renal disease, stage IV Pancytopenia Dementia Hypertension Surgical History History of open reduction and internal fixation (ORIF) procedure ankle fx---hardware in place History of bilateral cataract extraction History of tubal ligation History of appendectomy Status post cholecystectomy Family History Mother Family history of diabetes mellitus Brother Family history of diabetes mellitus Sister Family history of diabetes mellitus Other No family history of adverse response to anesthesia Social History Smoking Status: Never smoker Second Hand Exposure: No; Do You Dip or Chew Tobacco: No; Hx Alcohol Use: No Hx Substance Use: No Preferred Language: Danish Communication Ability: Effective Grain Loader Required: No Beliefs That Will Affect Care: None marital status: / Current Living Situation: Family Current Living Situation Comment: lives in apt beside son How many Children do You have: 3 Other Information That Helps Us Care for You: No Feels Safe at Home: Yes Safety Concerns: Feels Safe At This Time Assistive Devices: Walker Review of Systems Review of Systems: All systems reviewed & are unremarkable except as noted in Subjective Physical Exam Physical Exam: bitemp wasting PERRLA, chronically ill appearing, supine in bed neck supple/no stridor, no thyromegaly mild inc resp effort with diminished breath sounds, no overt rales/rhonchi/wheezing RRR, +CASSIE 3/6 +BLE edema, mild no overt rash; skin pale and cool, scatt ecchymoses AAOx3, friendly and cooperative with exam Results & Data Vital Signs (Past 12 Hours) Vital Signs Temp Pulse Resp BP Pulse Ox O2 Del Method 01/16/24 16:21 36.5 C 72 18 123/67 98 Room Air 01/16/24 11:17 36.6 C 79 18 126/63 95 Room Air Laboratory Results 01/16/24 01/16/24 01/16/24 Range/Units 16:55 12:09 08:48 WBC 7.00 (4.8-10.8) K/ul RBC 3.35 L (4.20-5.40) M/uL Hgb 10.7 L (12.0-16.0) g/dl Hct 34.4 L (37.0-47.0) % MCV 102.7 H (80.0-100.0) fL MCH 31.9 (25.0-34.0) pg MCHC 31.1 L (32.0-36.0) g/dL RDW Std Deviation 63.9 H (36.4-46.3) fL RDW Coeff of Nevaeh 17.0 H (11.5-14.5) % Plt Count 88 L (130-400) K/uL MPV 11.3 (9.4-12.4) fL Immature Gran % (Auto) 1.1 % Neut % (Auto) 76.4 % Lymph % (Auto) 9.0 % Cotton % (Auto) 13.4 % Eos % (Auto) 0.1 % Baso % (Auto) 0.0 % Neut # (Auto) 5.34 (1.40-6.50) K/uL Lymph # (Auto) 0.63 L (1.20-3.40) K/uL Cotton # (Auto) 0.94 H (0.11-0.59) K/uL Eos # (Auto) 0.01 (0.00-0.50) K/uL Baso # (Auto) 0.00 (0.00-0.20) K/uL Immature Gran # (Auto) 0.08 (0.01-0.20) K/uL PT (9.0-12.0) Seconds INR (0.9-1.1) APTT (21-31) Seconds PTT Ratio VBG pH (7.36-7.41) VBG pCO2 (38-50) mmHg VBG pO2 mmHg VBG HCO3 mmol/L VBG O2 Saturation % VBG Base Excess mEq/L Sodium 138 (136-145) mmol/L Potassium 4.2 (3.5-5.1) mmol/L Chloride 100 (98-107) mmol/L Carbon Dioxide 28 (21-32) mmol/L Anion Gap 10 (3-11) BUN 61 H (6-23) mg/dl Creatinine 1.75 H (0.6-1.2) mg/dl Est Cr Clr Drug Dosing 24.4 ml/min eGFR 30.20 BUN/Creatinine Ratio 34.9 H (10-20) Glucose 92 (70-99(Fasting)) mg/dl POC Glucose 112 H 258 H (70-99) mg/dl Lactate (0.4-2.0) mmol/L Calcium 8.7 (8.6-10.3) mg/dl Magnesium (1.7-2.4) mg/dl Total Bilirubin (0.2-1.0) mg/dl Direct Bilirubin (0-0.2) mg/dl AST (13-39) U/L ALT (7-52) U/L Alkaline Phosphatase (34-104) U/L Lactate Dehydrogenase (86-244) U/L Troponin I High Sens (0-14) pg/ml B-Natriuretic Peptide (0-100) pg/ml Total Protein (6.0-8.3) gm/dl Albumin (3.4-5.0) gm/dl Globulin (2.5-4.0) gm/dl Albumin/Globulin Ratio (0.9-2) 25-OH Vitamin D Total (30-100) ng/ml Procalcitonin (0-0.5) ng/ml Urine Color Urine Appearance (Clear) Urine pH (4.5-7.5) Ur Specific [place] (1.000-1.030) Urine Protein (Negative) Urine Glucose (UA) (Negative) Urine Ketones (Negative) Urine Blood (Negative) Urine Nitrite (Negative) Urine Bilirubin (Negative) Urine Urobilinogen (Negative) Ur Leukocyte Esterase (Negative) Urine WBC (Auto) (0-5) /hpf Urine RBC (Auto) (0-2) /hpf U Hyaline Cast (Auto) (0-2) /lpf U Epithel Cells (Auto) (0-2) /hpf Urine Bacteria (Auto) (None Seen) Fluid Neutrophils % % Fluid Lymphocytes % % Fluid Meso/Macro/Cotton % % Fluid Comment Pleural Fluid Source Pleural Color Pleural Appearance Pleural pH (7.3-7.4) Pleural WBC (Auto) /uL Pleural RBC (Auto) /uL Pleural Total Protein gm/dl Pleural LDH U/L Pleural Glucose mg/dl Pleural Amylase U/L Blood Type Antibody Screen 01/16/24 01/16/24 01/15/24 Range/Units 07:39 05:30 Unknown WBC (4.8-10.8) K/ul RBC (4.20-5.40) M/uL Hgb (12.0-16.0) g/dl Hct (37.0-47.0) % MCV (80.0-100.0) fL MCH (25.0-34.0) pg MCHC (32.0-36.0) g/dL RDW Std Deviation (36.4-46.3) fL RDW Coeff of Nevaeh (11.5-14.5) % Plt Count (130-400) K/uL MPV (9.4-12.4) fL Immature Gran % (Auto) % Neut % (Auto) % Lymph % (Auto) % Cotton % (Auto) % Eos % (Auto) % Baso % (Auto) % Neut # (Auto) (1.40-6.50) K/uL Lymph # (Auto) (1.20-3.40) K/uL Cotton # (Auto) (0.11-0.59) K/uL Eos # (Auto) (0.00-0.50) K/uL Baso # (Auto) (0.00-0.20) K/uL Immature Gran # (Auto) (0.01-0.20) K/uL PT (9.0-12.0) Seconds INR (0.9-1.1) APTT (21-31) Seconds PTT Ratio VBG pH (7.36-7.41) VBG pCO2 (38-50) mmHg VBG pO2 mmHg VBG HCO3 mmol/L VBG O2 Saturation % VBG Base Excess mEq/L Sodium (136-145) mmol/L Potassium (3.5-5.1) mmol/L Chloride (98-107) mmol/L Carbon Dioxide (21-32) mmol/L Anion Gap (3-11) BUN (6-23) mg/dl Creatinine (0.6-1.2) mg/dl Est Cr Clr Drug Dosing ml/min eGFR BUN/Creatinine Ratio (10-20) Glucose (70-99(Fasting)) mg/dl POC Glucose 74 (70-99) mg/dl Lactate (0.4-2.0) mmol/L Calcium (8.6-10.3) mg/dl Magnesium (1.7-2.4) mg/dl Total Bilirubin (0.2-1.0) mg/dl Direct Bilirubin (0-0.2) mg/dl AST (13-39) U/L ALT (7-52) U/L Alkaline Phosphatase (34-104) U/L Lactate Dehydrogenase (86-244) U/L Troponin I High Sens (0-14) pg/ml B-Natriuretic Peptide (0-100) pg/ml Total Protein (6.0-8.3) gm/dl Albumin (3.4-5.0) gm/dl Globulin (2.5-4.0) gm/dl Albumin/Globulin Ratio (0.9-2) 25-OH Vitamin D Total 57.6 (30-100) ng/ml Procalcitonin (0-0.5) ng/ml Urine Color Urine Appearance (Clear) Urine pH (4.5-7.5) Ur Specific [place] (1.000-1.030) Urine Protein (Negative) Urine Glucose (UA) (Negative) Urine Ketones (Negative) Urine Blood (Negative) Urine Nitrite (Negative) Urine Bilirubin (Negative) Urine Urobilinogen (Negative) Ur Leukocyte Esterase (Negative) Urine WBC (Auto) (0-5) /hpf Urine RBC (Auto) (0-2) /hpf U Hyaline Cast (Auto) (0-2) /lpf U Epithel Cells (Auto) (0-2) /hpf Urine Bacteria (Auto) (None Seen) Fluid Neutrophils % 31 % Fluid Lymphocytes % 12 % Fluid Meso/Macro/Cotton % 57 % Fluid Comment Pleural Fluid Source Right Lung Pleural Color Red Pleural Appearance Bloody Pleural pH 7.48 H (7.3-7.4) Pleural WBC (Auto) 514 /uL Pleural RBC (Auto) 24352 /uL Pleural Total Protein 3.9 gm/dl Pleural LDH 112 U/L Pleural Glucose 211 mg/dl Pleural Amylase 24 U/L Blood Type Antibody Screen 01/15/24 01/15/24 01/15/24 Range/Units 20:38 16:03 11:33 WBC (4.8-10.8) K/ul RBC (4.20-5.40) M/uL Hgb (12.0-16.0) g/dl Hct (37.0-47.0) % MCV (80.0-100.0) fL MCH (25.0-34.0) pg MCHC (32.0-36.0) g/dL RDW Std Deviation (36.4-46.3) fL RDW Coeff of Nevaeh (11.5-14.5) % Plt Count (130-400) K/uL MPV (9.4-12.4) fL Immature Gran % (Auto) % Neut % (Auto) % Lymph % (Auto) % Cotton % (Auto) % Eos % (Auto) % Baso % (Auto) % Neut # (Auto) (1.40-6.50) K/uL Lymph # (Auto) (1.20-3.40) K/uL Cotton # (Auto) (0.11-0.59) K/uL Eos # (Auto) (0.00-0.50) K/uL Baso # (Auto) (0.00-0.20) K/uL Immature Gran # (Auto) (0.01-0.20) K/uL PT (9.0-12.0) Seconds INR (0.9-1.1) APTT (21-31) Seconds PTT Ratio VBG pH (7.36-7.41) VBG pCO2 (38-50) mmHg VBG pO2 mmHg VBG HCO3 mmol/L VBG O2 Saturation % VBG Base Excess mEq/L Sodium (136-145) mmol/L Potassium (3.5-5.1) mmol/L Chloride (98-107) mmol/L Carbon Dioxide (21-32) mmol/L Anion Gap (3-11) BUN (6-23) mg/dl Creatinine (0.6-1.2) mg/dl Est Cr Clr Drug Dosing ml/min eGFR BUN/Creatinine Ratio (10-20) Glucose (70-99(Fasting)) mg/dl POC Glucose 196 H 345 H* 289 H (70-99) mg/dl Lactate (0.4-2.0) mmol/L Calcium (8.6-10.3) mg/dl Magnesium (1.7-2.4) mg/dl Total Bilirubin (0.2-1.0) mg/dl Direct Bilirubin (0-0.2) mg/dl AST (13-39) U/L ALT (7-52) U/L Alkaline Phosphatase (34-104) U/L Lactate Dehydrogenase (86-244) U/L Troponin I High Sens (0-14) pg/ml B-Natriuretic Peptide (0-100) pg/ml Total Protein (6.0-8.3) gm/dl Albumin (3.4-5.0) gm/dl Globulin (2.5-4.0) gm/dl Albumin/Globulin Ratio (0.9-2) 25-OH Vitamin D Total (30-100) ng/ml Procalcitonin (0-0.5) ng/ml Urine Color Urine Appearance (Clear) Urine pH (4.5-7.5) Ur Specific [place] (1.000-1.030) Urine Protein (Negative) Urine Glucose (UA) (Negative) Urine Ketones (Negative) Urine Blood (Negative) Urine Nitrite (Negative) Urine Bilirubin (Negative) Urine Urobilinogen (Negative) Ur Leukocyte Esterase (Negative) Urine WBC (Auto) (0-5) /hpf Urine RBC (Auto) (0-2) /hpf U Hyaline Cast (Auto) (0-2) /lpf U Epithel Cells (Auto) (0-2) /hpf Urine Bacteria (Auto) (None Seen) Fluid Neutrophils % % Fluid Lymphocytes % % Fluid Meso/Macro/Cotton % % Fluid Comment Pleural Fluid Source Pleural Color Pleural Appearance Pleural pH (7.3-7.4) Pleural WBC (Auto) /uL Pleural RBC (Auto) /uL Pleural Total Protein gm/dl Pleural LDH U/L Pleural Glucose mg/dl Pleural Amylase U/L Blood Type Antibody Screen 01/15/24 01/15/24 01/15/24 Range/Units 08:31 07:07 06:24 WBC 7.06 (4.8-10.8) K/ul RBC 3.37 L (4.20-5.40) M/uL Hgb 10.9 L (12.0-16.0) g/dl Hct 34.0 L (37.0-47.0) % MCV 100.9 H (80.0-100.0) fL MCH 32.3 (25.0-34.0) pg MCHC 32.1 (32.0-36.0) g/dL RDW Std Deviation 62.3 H (36.4-46.3) fL RDW Coeff of Nevaeh 16.9 H (11.5-14.5) % Plt Count 91 L (130-400) K/uL MPV 12.0 (9.4-12.4) fL Immature Gran % (Auto) % Neut % (Auto) % Lymph % (Auto) % Cotton % (Auto) % Eos % (Auto) % Baso % (Auto) % Neut # (Auto) (1.40-6.50) K/uL Lymph # (Auto) (1.20-3.40) K/uL Cotton # (Auto) (0.11-0.59) K/uL Eos # (Auto) (0.00-0.50) K/uL Baso # (Auto) (0.00-0.20) K/uL Immature Gran # (Auto) (0.01-0.20) K/uL PT (9.0-12.0) Seconds INR (0.9-1.1) APTT (21-31) Seconds PTT Ratio VBG pH (7.36-7.41) VBG pCO2 (38-50) mmHg VBG pO2 mmHg VBG HCO3 mmol/L VBG O2 Saturation % VBG Base Excess mEq/L Sodium 136 (136-145) mmol/L Potassium 4.2 (3.5-5.1) mmol/L Chloride 100 (98-107) mmol/L Carbon Dioxide 28 (21-32) mmol/L Anion Gap 8 (3-11) BUN 68 H (6-23) mg/dl Creatinine 1.87 H (0.6-1.2) mg/dl Est Cr Clr Drug Dosing 22.8 ml/min eGFR 27.89 BUN/Creatinine Ratio 36.4 H (10-20) Glucose 174 H (70-99(Fasting)) mg/dl POC Glucose 205 H (70-99) mg/dl Lactate (0.4-2.0) mmol/L Calcium 9.1 (8.6-10.3) mg/dl Magnesium (1.7-2.4) mg/dl Total Bilirubin 1.1 H 1.1 H (0.2-1.0) mg/dl Direct Bilirubin (0-0.2) mg/dl AST 18 (13-39) U/L ALT 21 (7-52) U/L Alkaline Phosphatase 112 H (34-104) U/L Lactate Dehydrogenase 224 (86-244) U/L Troponin I High Sens (0-14) pg/ml B-Natriuretic Peptide (0-100) pg/ml Total Protein 6.9 7.3 (6.0-8.3) gm/dl Albumin 3.1 L 3.3 L (3.4-5.0) gm/dl Globulin 4.0 (2.5-4.0) gm/dl Albumin/Globulin Ratio 0.8 L (0.9-2) 25-OH Vitamin D Total (30-100) ng/ml Procalcitonin (0-0.5) ng/ml Urine Color Urine Appearance (Clear) Urine pH (4.5-7.5) Ur Specific [place] (1.000-1.030) Urine Protein (Negative) Urine Glucose (UA) (Negative) Urine Ketones (Negative) Urine Blood (Negative) Urine Nitrite (Negative) Urine Bilirubin (Negative) Urine Urobilinogen (Negative) Ur Leukocyte Esterase (Negative) Urine WBC (Auto) (0-5) /hpf Urine RBC (Auto) (0-2) /hpf U Hyaline Cast (Auto) (0-2) /lpf U Epithel Cells (Auto) (0-2) /hpf Urine Bacteria (Auto) (None Seen) Fluid Neutrophils % % Fluid Lymphocytes % % Fluid Meso/Macro/Cotton % % Fluid Comment Pleural Fluid Source Pleural Color Pleural Appearance Pleural pH (7.3-7.4) Pleural WBC (Auto) /uL Pleural RBC (Auto) /uL Pleural Total Protein gm/dl Pleural LDH U/L Pleural Glucose mg/dl Pleural Amylase U/L Blood Type Antibody Screen 01/14/24 01/14/24 01/14/24 Range/Units Unknown 21:05 18:10 WBC 6.80 (4.8-10.8) K/ul RBC 3.04 L (4.20-5.40) M/uL Hgb 9.8 L (12.0-16.0) g/dl Hct 31.6 L (37.0-47.0) % MCV 103.9 H (80.0-100.0) fL MCH 32.2 (25.0-34.0) pg MCHC 31.0 L (32.0-36.0) g/dL RDW Std Deviation 65.4 H (36.4-46.3) fL RDW Coeff of Nevaeh 17.1 H (11.5-14.5) % Plt Count 93 L (130-400) K/uL MPV 12.5 H (9.4-12.4) fL Immature Gran % (Auto) 1.3 % Neut % (Auto) 71.8 % Lymph % (Auto) 11.3 % Cotton % (Auto) 15.4 % Eos % (Auto) 0.1 % Baso % (Auto) 0.1 % Neut # (Auto) 4.87 (1.40-6.50) K/uL Lymph # (Auto) 0.77 L (1.20-3.40) K/uL Cotton # (Auto) 1.05 H (0.11-0.59) K/uL Eos # (Auto) 0.01 (0.00-0.50) K/uL Baso # (Auto) 0.01 (0.00-0.20) K/uL Immature Gran # (Auto) 0.09 (0.01-0.20) K/uL PT 13.8 H (9.0-12.0) Seconds INR 1.3 H (0.9-1.1) APTT 27 (21-31) Seconds PTT Ratio 1.0 VBG pH (7.36-7.41) VBG pCO2 (38-50) mmHg VBG pO2 mmHg VBG HCO3 mmol/L VBG O2 Saturation % VBG Base Excess mEq/L Sodium 134 L (136-145) mmol/L Potassium 4.7 (3.5-5.1) mmol/L Chloride 98 (98-107) mmol/L Carbon Dioxide 27 (21-32) mmol/L Anion Gap 9 (3-11) BUN 66 H (6-23) mg/dl Creatinine 2.00 H (0.6-1.2) mg/dl Est Cr Clr Drug Dosing 24.0 ml/min eGFR 25.73 BUN/Creatinine Ratio 33.0 H (10-20) Glucose 248 H (70-99(Fasting)) mg/dl POC Glucose 251 H (70-99) mg/dl Lactate (0.4-2.0) mmol/L Calcium 9.3 (8.6-10.3) mg/dl Magnesium 1.8 (1.7-2.4) mg/dl Total Bilirubin 1.3 H (0.2-1.0) mg/dl Direct Bilirubin 0.4 H (0-0.2) mg/dl AST 22 (13-39) U/L ALT 24 (7-52) U/L Alkaline Phosphatase 113 H (34-104) U/L Lactate Dehydrogenase (86-244) U/L Troponin I High Sens 39.0 H 43.5 H (0-14) pg/ml B-Natriuretic Peptide (0-100) pg/ml Total Protein 7.7 (6.0-8.3) gm/dl Albumin 3.5 (3.4-5.0) gm/dl Globulin (2.5-4.0) gm/dl Albumin/Globulin Ratio (0.9-2) 25-OH Vitamin D Total (30-100) ng/ml Procalcitonin 0.23 (0-0.5) ng/ml Urine Color Urine Appearance (Clear) Urine pH (4.5-7.5) Ur Specific [place] (1.000-1.030) Urine Protein (Negative) Urine Glucose (UA) (Negative) Urine Ketones (Negative) Urine Blood (Negative) Urine Nitrite (Negative) Urine Bilirubin (Negative) Urine Urobilinogen (Negative) Ur Leukocyte Esterase (Negative) Urine WBC (Auto) (0-5) /hpf Urine RBC (Auto) (0-2) /hpf U Hyaline Cast (Auto) (0-2) /lpf U Epithel Cells (Auto) (0-2) /hpf Urine Bacteria (Auto) (None Seen) Fluid Neutrophils % % Fluid Lymphocytes % % Fluid Meso/Macro/Cotton % % Fluid Comment Pleural Fluid Source Pleural Color Pleural Appearance Pleural pH (7.3-7.4) Pleural WBC (Auto) /uL Pleural RBC (Auto) /uL Pleural Total Protein gm/dl Pleural LDH U/L Pleural Glucose mg/dl Pleural Amylase U/L Blood Type Antibody Screen 01/14/24 01/14/24 01/14/24 Range/Units 18:07 17:04 16:39 WBC (4.8-10.8) K/ul RBC (4.20-5.40) M/uL Hgb (12.0-16.0) g/dl Hct (37.0-47.0) % MCV (80.0-100.0) fL MCH (25.0-34.0) pg MCHC (32.0-36.0) g/dL RDW Std Deviation (36.4-46.3) fL RDW Coeff of Nevaeh (11.5-14.5) % Plt Count (130-400) K/uL MPV (9.4-12.4) fL Immature Gran % (Auto) % Neut % (Auto) % Lymph % (Auto) % Cotton % (Auto) % Eos % (Auto) % Baso % (Auto) % Neut # (Auto) (1.40-6.50) K/uL Lymph # (Auto) (1.20-3.40) K/uL Cotton # (Auto) (0.11-0.59) K/uL Eos # (Auto) (0.00-0.50) K/uL Baso # (Auto) (0.00-0.20) K/uL Immature Gran # (Auto) (0.01-0.20) K/uL PT (9.0-12.0) Seconds INR (0.9-1.1) APTT (21-31) Seconds PTT Ratio VBG pH 7.35 L (7.36-7.41) VBG pCO2 49 (38-50) mmHg VBG pO2 24 mmHg VBG HCO3 27 mmol/L VBG O2 Saturation < 60.0 % VBG Base Excess 0.8 mEq/L Sodium (136-145) mmol/L Potassium (3.5-5.1) mmol/L Chloride (98-107) mmol/L Carbon Dioxide (21-32) mmol/L Anion Gap (3-11) BUN (6-23) mg/dl Creatinine (0.6-1.2) mg/dl Est Cr Clr Drug Dosing ml/min eGFR BUN/Creatinine Ratio (10-20) Glucose (70-99(Fasting)) mg/dl POC Glucose (70-99) mg/dl Lactate 1.2 (0.4-2.0) mmol/L Calcium (8.6-10.3) mg/dl Magnesium (1.7-2.4) mg/dl Total Bilirubin (0.2-1.0) mg/dl Direct Bilirubin (0-0.2) mg/dl AST (13-39) U/L ALT (7-52) U/L Alkaline Phosphatase (34-104) U/L Lactate Dehydrogenase (86-244) U/L Troponin I High Sens (0-14) pg/ml B-Natriuretic Peptide > 4700 H (0-100) pg/ml Total Protein (6.0-8.3) gm/dl Albumin (3.4-5.0) gm/dl Globulin (2.5-4.0) gm/dl Albumin/Globulin Ratio (0.9-2) 25-OH Vitamin D Total (30-100) ng/ml Procalcitonin (0-0.5) ng/ml Urine Color Yellow Urine Appearance Clear (Clear) Urine pH 5.0 (4.5-7.5) Ur Specific [place] 1.014 (1.000-1.030) Urine Protein 1+ H (Negative) Urine Glucose (UA) Negative (Negative) Urine Ketones Negative (Negative) Urine Blood Negative (Negative) Urine Nitrite Negative (Negative) Urine Bilirubin Negative (Negative) Urine Urobilinogen Negative (Negative) Ur Leukocyte Esterase Negative (Negative) Urine WBC (Auto) 0-5 (0-5) /hpf Urine RBC (Auto) 3-5 H (0-2) /hpf U Hyaline Cast (Auto) 0-2 (0-2) /lpf U Epithel Cells (Auto) 3-5 H (0-2) /hpf Urine Bacteria (Auto) None Seen (None Seen) Fluid Neutrophils % % Fluid Lymphocytes % % Fluid Meso/Macro/Cotton % % Fluid Comment Pleural Fluid Source Pleural Color Pleural Appearance Pleural pH (7.3-7.4) Pleural WBC (Auto) /uL Pleural RBC (Auto) /uL Pleural Total Protein gm/dl Pleural LDH U/L Pleural Glucose mg/dl Pleural Amylase U/L Blood Type A Positive Antibody Screen NEGATIVE 01/14/24 Range/Units 16:14 WBC (4.8-10.8) K/ul RBC (4.20-5.40) M/uL Hgb (12.0-16.0) g/dl Hct (37.0-47.0) % MCV (80.0-100.0) fL MCH (25.0-34.0) pg MCHC (32.0-36.0) g/dL RDW Std Deviation (36.4-46.3) fL RDW Coeff of Nevaeh (11.5-14.5) % Plt Count (130-400) K/uL MPV (9.4-12.4) fL Immature Gran % (Auto) % Neut % (Auto) % Lymph % (Auto) % Cotton % (Auto) % Eos % (Auto) % Baso % (Auto) % Neut # (Auto) (1.40-6.50) K/uL Lymph # (Auto) (1.20-3.40) K/uL Cotton # (Auto) (0.11-0.59) K/uL Eos # (Auto) (0.00-0.50) K/uL Baso # (Auto) (0.00-0.20) K/uL Immature Gran # (Auto) (0.01-0.20) K/uL PT (9.0-12.0) Seconds INR (0.9-1.1) APTT (21-31) Seconds PTT Ratio VBG pH (7.36-7.41) VBG pCO2 (38-50) mmHg VBG pO2 mmHg VBG HCO3 mmol/L VBG O2 Saturation % VBG Base Excess mEq/L Sodium (136-145) mmol/L Potassium (3.5-5.1) mmol/L Chloride (98-107) mmol/L Carbon Dioxide (21-32) mmol/L Anion Gap (3-11) BUN (6-23) mg/dl Creatinine (0.6-1.2) mg/dl Est Cr Clr Drug Dosing ml/min eGFR BUN/Creatinine Ratio (10-20) Glucose (70-99(Fasting)) mg/dl POC Glucose 258 H (70-99) mg/dl Lactate (0.4-2.0) mmol/L Calcium (8.6-10.3) mg/dl Magnesium (1.7-2.4) mg/dl Total Bilirubin (0.2-1.0) mg/dl Direct Bilirubin (0-0.2) mg/dl AST (13-39) U/L ALT (7-52) U/L Alkaline Phosphatase (34-104) U/L Lactate Dehydrogenase (86-244) U/L Troponin I High Sens (0-14) pg/ml B-Natriuretic Peptide (0-100) pg/ml Total Protein (6.0-8.3) gm/dl Albumin (3.4-5.0) gm/dl Globulin (2.5-4.0) gm/dl Albumin/Globulin Ratio (0.9-2) 25-OH Vitamin D Total (30-100) ng/ml Procalcitonin (0-0.5) ng/ml Urine Color Urine Appearance (Clear) Urine pH (4.5-7.5) Ur Specific [place] (1.000-1.030) Urine Protein (Negative) Urine Glucose (UA) (Negative) Urine Ketones (Negative) Urine Blood (Negative) Urine Nitrite (Negative) Urine Bilirubin (Negative) Urine Urobilinogen (Negative) Ur Leukocyte Esterase (Negative) Urine WBC (Auto) (0-5) /hpf Urine RBC (Auto) (0-2) /hpf U Hyaline Cast (Auto) (0-2) /lpf U Epithel Cells (Auto) (0-2) /hpf Urine Bacteria (Auto) (None Seen) Fluid Neutrophils % % Fluid Lymphocytes % % Fluid Meso/Macro/Cotton % % Fluid Comment Pleural Fluid Source Pleural Color Pleural Appearance Pleural pH (7.3-7.4) Pleural WBC (Auto) /uL Pleural RBC (Auto) /uL Pleural Total Protein gm/dl Pleural LDH U/L Pleural Glucose mg/dl Pleural Amylase U/L Blood Type Antibody Screen Diagnostic Findings Chest X-Ray 01/14/24 16:23 XR chest 1V portable HISTORY: 73 years-old Female Sepsis COMPARISON: 12/30/2023 TECHNIQUE: AP view of the chest FINDINGS: Cardiac silhouette is enlarged. Patient is side bent. Single lead right subclavian pacer/AICD. Cardiomegaly. Atherosclerosis of the aorta. Right greater than left layering pleural effusions with bibasilar opacities. Pulmonary vascular congestion. IMPRESSION: 1. Cardiomegaly with pulmonary vascular congestion. 2. Right greater then left layering pleural effusions with bibasilar opacities which may represent atelectasis versus pneumonitis. ACT 112: Negative or not required by law. The above report was generated using voice recognition software. It may contain grammatical, syntax or spelling errors. Electronically signed by: Sergei Marino M.D. 01/14/2024 5:02 PM Abdomen/Pelvis CT 01/14/24 16:24 CT SCAN OF THE ABDOMEN AND PELVIS WITHOUT IV CONTRAST CLINICAL HISTORY: Fall. COMPARISON STUDY: Abdominal CT dated 12/30/2023. TECHNIQUE: CT scan of the abdomen and pelvis is performed from the lung bases to the proximal femora. Images are reviewed in the axial, sagittal, and coronal planes. IV contrast was not administered for this examination. Note that the examination was performed in significantly suboptimal fashion without IV contrast in the setting of trauma. The examination is degraded by motion artifact, as well as by streak artifact from the arms which could not be elevated above the abdomen. There is also suboptimal positioning within the CT gantry. A dose lowering technique was utilized adhering to the principles of ALARA. FINDINGS: Lung bases: The heart is enlarged noting a small pericardial effusion. A pacemaker lead is in place. There is coronary artery atherosclerosis. There is diminished attenuation of the cardiac blood pool as compared to the myocardium suggesting anemia. There are right larger than left pleural effusions with dependent consolidation. A small hiatal hernia is observed. Liver: The unenhanced liver is normal in size, contour, and attenuation. There is no intrahepatic biliary ductal dilatation. Gallbladder: The gallbladder decompressed and the wall appears thickened and edematous. Spleen: Normal in size and attenuation. Pancreas: The unenhanced pancreas is moderately atrophic and grossly unremarkable. Adrenal glands: Nodular thickening of the adrenal glands is similar to previous. Kidneys: The unenhanced kidneys demonstrate mild cortical atrophy and are without hydronephrosis. There are no renal calculi identified. There is no evidence of contour deforming renal mass lesion. Abdominal vasculature: The abdominal aorta is normal in course and caliber noting advanced atherosclerotic calcification. Bowel: There is mild clonic diverticulosis without CT evidence of acute diverticulitis. No bowel obstruction is seen. Swrb-mr-xztjetvz fecal retention is noted throughout the colon. The appendix is not visualized and reported surgically absent. Peritoneum: No intraperitoneal free air is identified. There is a small volume of pelvic ascites. Lymphadenopathy: None. Pelvic viscera: The bladder is mildly distended but otherwise normal in appearance. Uterus and adnexa are normal as visualized. Skeletal structures: The skeletal structures are osteopenic. Again seen is a subacute burst type compression fracture of T11 with tngk-oh-lvsemqoe loss of height. Fracture involves the posterior elements, extending through both pedicles of T11 as well as the spinous process of T10. There is no significant retropulsion of fragments. Paravertebral edema persists. A chronic compression deformity of T12 is unchanged from older examinations. There are subacute/healing left anterior rib fractures. No additional acute fracture is seen involving the lumbosacral spine. The bony pelvis and proximal femora appear intact. There is mild to moderate lumbosacral spondylosis. Sclerotic changes noted in the sacroiliac joints. No lytic or blastic lesions are seen. Soft tissues: There is body wall edema. IMPRESSION: 1. Significantly suboptimal examination without IV contrast. There is also streak and motion artifact. 2. There is no evidence of solid organ injury in the abdomen or pelvis on this unenhanced examination. 3. Again seen is a subacute type burst compression fracture of T11. There is mild/moderate loss of height, with no significant retropulsion of fragments. 4. Fracture involves the posterior elements of T11 extending through both pedicles, as well as the spinous process of T10. This fracture is likely unstable. 5. No additional acute fracture is identified. 6. Cardiomegaly and cardiac pacemaker. 7. There is evidence of fluid overload with a small volume of pelvic ascites, right larger than left pleural effusions with dependent consolidation, and anasarca of the body wall. 8. The gallbladder is contracted and the wall appears thickened and edematous. This is similar in appearance to previous. Correlate with clinical laboratory findings. 9. Additional findings as above. ACT 112: Negative or not required by law. Electronically signed by: Nicolas Wang M.D. 01/14/2024 6:[address] 01/14/24 16:24 CT SCAN OF THE CERVICAL SPINE CLINICAL HISTORY: Fall. COMPARISON STUDY: CT scan of the cervical spine dated 07/05/2023. TECHNIQUE: CT scan of the cervical spine is performed from the skull base to the upper thoracic spine. Images are reviewed in the axial, sagittal, and coronal planes. IV contrast was not administered for this examination. A dose lowering technique was utilized adhering to the principles of ALARA. FINDINGS: Skeletal structures: The skeletal structures are osteopenic. There is no evidence of fracture or subluxation involving the cervical spine. Vertebral body height and alignment are maintained. The odontoid process and lateral masses are intact. The atlantoaxial articulation is preserved noting mild productive degenerative change. The spinous processes appear intact. Intervertebral discs: There is mild/moderate disc space narrowing at C6-C7. The remaining disc spaces are maintained. Central canal: A posterior disc osteophyte complex at C6-C7 may contribute to acquired compromise of the central canal. Soft tissues: The prevertebral and paraspinous soft tissues are within normal limits. There is atherosclerotic calcification of the carotid bulbs. Calvarium: The visualized calvarium at the skull base appears intact. Brain parenchyma: Partially visualized brain parenchyma at the skull base is within normal limits. Sinuses and mastoids: There is trace mucosal thickening in the left maxillary antrum. The mastoid air cells are well pneumatized. Cerumen is noted in the external auditory canals. Lung apices: A right pleural effusion is partially imaged. IMPRESSION: 1. There is no evidence of cervical spine fracture or subluxation. 2. A right pleural effusion is partially visualized. Electronically signed by: Nicolas Wang M.D. 01/14/2024 5:46 PM Femur X-Ray 01/14/24 16:24 XR femur LT 2V routine HISTORY: 73 years-old Female fall acute pain of the left lower extremity status post fall COMPARISON: Pelvis radiograph same day TECHNIQUE: 2 views of the left femur FINDINGS: Arterial calcifications. Suboptimal evaluation of the knee secondary to positioning. Questioned cortical irregularity of the posterior proximal tibia on the lateral view which may correlate with the lateral tibial plateau on the frontal projection. Mild osteoarthritis of the hip and knee without acute fracture or dislocation identified by radiography. IMPRESSION: 1. No acute femoral fracture or dislocation identified. 2. Suboptimal evaluation of the knee secondary to positioning. Equivocal cortical irregularity of the posterior lateral tibial plateau. Dedicated knee radiographs recommended in order to exclude an acute nondisplaced fracture. ACT 112: Negative or not required by law. The above report was generated using voice recognition software. It may contain grammatical, syntax or spelling errors. Electronically signed by: Sergei Marino M.D. 01/14/2024 5:[address] 01/14/24 16:24 CT SCAN OF THE BRAIN WITHOUT IV CONTRAST CLINICAL HISTORY: Fall. COMPARISON STUDY: CT of the brain dated 01/02/2024. TECHNIQUE: Unenhanced axial CT scan of the brain is performed from the vertex to the skull base. A dose lowering technique was utilized adhering to the principles of ALARA. CT DOSE: 2577.8 mGy.cm FINDINGS: Brain parenchyma: There is age-related involutional change noting moderate confluent subcortical and periventricular microangiopathic disease. There is no hemorrhage, mass effect, or evidence of acute territorial ischemia by CT criteria. Espinoza-white matter differentiation is preserved. No extra-axial fluid collection is seen. Ventricles, sulci, cisterns: Prominent secondary to involutional change. Intracranial vasculature: There is atherosclerotic calcification of the cavernous carotid and vertebral arteries. Calvarium: Unremarkable. Sinuses and mastoids: There is trace mucosal thickening in the left maxillary antrum. The remaining visualized paranasal sinuses are clear. The mastoid air cells are well pneumatized. Orbits: The bony orbits are grossly intact. There are bilateral ocular lens implants. IMPRESSION: There is no hemorrhage, mass effect, or evidence of acute territorial ischemia by CT criteria. ACT 112: Negative or not required by law. Electronically signed by: Nicolas Wang M.D. 01/14/2024 5:43 PM Pelvis X-Ray 01/14/24 16:24 SINGLE VIEW PELVIS CLINICAL HISTORY: Fall. FINDINGS: 2 AP, portable, supine pelvic radiographs are compared to study dated 03/07/2022. The examination is degraded by patient rotation. The skeletal structures are osteopenic. There is no radiographic evidence of acute fracture involving the hips or bony pelvis. Phuk-wl-khtbxavg arthritic change and joint space narrowing is seen in the hips. There is degenerative sclerosis of the sacroiliac joints and pubic symphysis. The overlying soft tissues are within normal limits. Advanced atherosclerotic calcification is seen in the femoral arteries. IMPRESSION: No acute bony abnormality is identified. Electronically signed by: Nicolas Wang M.D. 01/14/2024 5:06 PM Knee X-Ray 01/14/24 17:09 LEFT KNEE 2 VIEWS CLINICAL HISTORY: Fall. FINDINGS: Crosstable AP and lateral views of the left knee are obtained. No prior studies are available for comparison at the time of dictation. The skeletal structures are osteopenic. There is no radiographic evidence of acute fracture. There is mild tricompartmental degenerative joint space narrowing. No joint effusion is seen. There is mild prepatellar soft tissue swelling. Advanced atherosclerotic calcification is seen in the popliteal artery. IMPRESSION: Soft tissue swelling with no acute bony abnormality identified. Electronically signed by: Nicolas Wang M.D. 01/14/2024 6:26 PM Hip X-Ray 01/14/24 19:29 RIGHT HIP 2 VIEWS CLINICAL HISTORY: Fall. Right hip pain. FINDINGS: AP and frog-leg views of the right hip are correlated with pelvic x- ray and CT performed the same day 01/14/2024. The skeletal structures are osteopenic. There is no radiographic evidence of acute fracture involving the right hip or the visualized right hemipelvis. Mild arthritic change is in the right hip. There is degenerative sclerosis of the sacroiliac joints. The overlying soft tissues are within normal limits. Advanced atherosclerotic calcification is seen in the right femoral artery. IMPRESSION: No acute bony abnormality is identified. Electronically signed by: Nicolas Wang M.D. 01/14/2024 9:[address] 01/14/24 20:10 Exam(s): CT L SPINE EXAM: CT Lumbar Spine Without Intravenous Contrast CLINICAL HISTORY: Reason for exam: lower back pain. TECHNIQUE: Axial computed tomography images of the lumbar spine without intravenous contrast. CTDI is 22.91 mGy and DLP is 484.14 mGy-cm. Automated exposure control was utilized for the study. A dose lowering technique was utilized adhering to the principles of ALARA. COMPARISON: Prior plain film images of the lumbar spine from December 28, 2021. FINDINGS: Vertebrae: Unremarkable. No evidence of acute lumbar spine fracture. There is an acute 2 column superior endplate fracture of the T11 vertebral body with 33% loss of vertebral body height. There is a remote fracture deformity of the T12 vertebral body. There is moderate right and mild left sacroiliac joint arthropathy. Discs/spinal canal/neural foramina: No acute findings. No spinal canal stenosis. Soft tissues: Bilateral pleural effusions and lower lobe consolidations. IMPRESSION: No evidence of acute lumbar spine pathology. There is an acute 2 column fracture of the T11 vertebral body with 33% loss of vertebral body height. This fracture is amenable to vertebroplasty or kyphoplasty. Electronically signed by: Radha Pa MD 01/14/24 22:43 PM Thoracentesis/Paracentesis US 01/15/24 07:27 ULTRASOUND-GUIDED RIGHT THORACENTESIS CLINICAL HISTORY: Right pleural effusion COMPARISON STUDY: Abdominal CT dated 01/14/2024. PROCEDURE: Procedure and risks were explained. Informed consent was obtained. A final timeout was completed. The right posterior thorax was prepped and draped in sterile fashion. 1% lidocaine was utilized for skin anesthesia. Utilizing ultrasound guidance, a 5 Czech skater catheter was advanced into the right pleural effusion. Ultrasound images were obtained. 900 mL of serosanguineous fluid was removed and sent to the lab. The catheter was removed and Band-Aid applied. The patient tolerated the procedure well. A chest x-ray will be obtained postprocedure and vital signs will be monitored on the floor. IMPRESSION: Right thoracentesis as above. Performed, dictated, and signed by Carson Johnson PA-C; to be co-signed by Dr. Nicolas Wang. Electronically signed by: Nicolas Wang M.D. 01/15/2024 4:04 PM Chest X-Ray 01/15/24 10:49 XR chest 1V not portable HISTORY: 73 years-old Female s/p rt thora with stat read acute shortness of breath COMPARISON: 01/14/2024 TECHNIQUE: AP view of the chest FINDINGS: Cardiac silhouette is enlarged. Patient is side bent. Single lead right subclavian pacer/AICD. Cardiomegaly. Atherosclerosis of the aorta. Decreased s ize of the previously noted right pleural effusion. No postprocedural pneumothorax. Small pleural effusions with persistent bibasilar densities. Pulmonary vascular congestion. IMPRESSION: No postprocedural pneumothorax identified. ACT 112: Negative or not required by law. The above report was generated using voice recognition software. It may contain grammatical, syntax or spelling errors. Electronically signed by: Sergei Marino M.D. 01/15/2024 11:09 AM PG Care Time/CCT Total # of Minutes Spent Total Time Spent with Patient: Total time spent is greater than 50% in coordination of care (as documented) at patient's floor/unit and/or counseling patient: I spent 75 minutes overall addressing this case: 15 min in medical data review/discussion with referring provider(s) and/or preparation for the visit 15 min in direct interaction with the patient/exam 20 min in Advance Care Planning/Goals of Care discussions as detailed above in note (must be >16min) 10 min in subsequent review and synthesis of assessment and plan 15 min communicating with other providers regarding the patient's case: primary team and nursing Advanced Care Planning 88063 Advanced Care Planning 30 [place] [address] IN/OBS CONSULT LVL 4,60M (25 - SIGNIFICANT, SEPARATELY IDENTIFIABLE ) Patient Type New Medical Decision Making High Complexity Diagnoses Dyspnea and respiratory abnormalities R06.00; R06.89 Weakness generalized R53.1 Advanced care planning/counseling discussion Z71.89 Palliative care by specialist Z51.5 Encounter for hospice care discussion Z71.89 Additional Codes Advanced Care Planning - 14280 Advanced Care Planning 30 Min: 54111 Advanced Care Planning 30 Min ([id number])
[2024-01-16] MEDS: ONDANSETRON INJ 2 MG/ML 2 ML VIAL IV PRN (20:40)
--- NOTE | 2024-01-17 09:07 | Cardiology Progress Note ---
Date of Service January 17, 2024 Assessment & Plan (1) Acute on chronic systolic CHF (congestive heart failure): (2) Pleural effusion: (3) Compression fracture of T11 vertebra: Plan Assessment: 73 year old medically complex female admitted for shortness of breath with acute on chronic HF, and multiple orthopedic concerns. Plan: Acute on chronic systolic failure Pleural effusion -patient with imaging consistent with a right Pleural effusion. S/p Thoracentesis. Repeat xray shows no evidence of post procedure pneumo. -Family reports that her home dose of Torsemide was reduced from 20mg to 10mg daily -Received one time dose of lasix 40mg IV at time of admission. Would restart Lasix 40mg IV Daily starting tomorrow. Will discuss this with Dr. Vyas -Strict I&Os, daily weights and close monitoring of renal function. -Goal Serum K> 4.0 and Serum Mag > 2.0. -Continue metoprolol succinate 50mg PO BID Compression fracture T11 vertebra -Pain management on consult -Patient is to follow with ortho OP 01/16/2024: -Patient remains stable from a cardiac perspective. Appears to be diuresing well as her weight is trending down. Inaccurate output measurements as patient had a Purwick device on which was leaking. Encourage Strict I&Os and daily weights. -s/p Thoracentesis 01/15/2024 in which 900cc of fluid was removed. Post procedure xray stable with no evidence of pneumothorax. -close monitoring or renal function which is improving and also to monitor serum electrolytes. -Goal Serum K> 4.0 and Serum Mag > 2.0. -Continue metoprolol succinate 50mg PO BID -Effective pain control of her back pain (compression fracture of the T11 vertebra) per primary team. patient would benefit from PT prior to discharge. 01/17/2024: -Patient is stable from a cardiac perspective. I&Os do not appear accurate which I suspect is due to urinary incontinence and a failed Purwick. -Chest xray remains stable with small bilateral pleural effusions. remains improved since thoracenteses on 01/14. -Continue IV Lasix today, reassess renal function and volume status in the AM and consider transition to PO Torsemide if able. -Encourage strict I&Os and daily weights, these are not accurate. -Goal serum Mag > 2.0 and Serum K >4.0. -Effective pain control of her back pain (compression fracture of the T11 vertebra) per primary team. patient would benefit from PT prior to discharge. -Agree with family and primary team that palliative consult could greatly benefit patient providing added quality to life with her multiple complex comorbidities. Case has been discussed with Dr. Vyas. Further recommendations regarding plan of care as per his assessment. I spent a total of 30 minutes on the date of service in preparation, delivery, documentation of the care provided to the patient excluding any time spent in the performance of separately billed services. [facility] Admission and Anticipated Discharge Date Admission Date: January 14, 2024 Supervising Physician Co-Signing Physician Notes Attending attestation: Case reviewed with the advanced practitioner. I have personally performed a history and physical examination on the patient. I have reviewed the advanced practitioner's documentation on the date of service referenced in note, and I agree with, and take responsibility for the plan of care. Most significant subjective complaint remains back pain. Agree with palliative care evaluation. Severe cardiomyopathy. Prognosis is poor. Continue furosemide 40 mg IV daily. Transition to torsemide 20 mg daily at discharge. Continue subcutaneous heparin for DVT prophylaxis. Cardiology to sign off. Call with questions or concerns. I spent a total of 20 minutes coordinating, documenting, and providing care for this patient excluding time spent in the performance of separately billed se rvices or time spent by another provider. Jonah Vyas, Subjective 01/17/2024: Patient seen and examined in follow up today. Feeling well from a cardiac perspective. She is perseverating over something stuck in her tooth. Spoke with patient's nurse today who mentioned that son was in to visit patient last evening and is in support of involving palliative medicine. Labs, vitals, diagnostics, telemetry and documentation reviewed. Telemetry reviewed showing SR 60s no acute events overnight. Review of Systems Review of Systems: All systems reviewed & are unremarkable except as noted in HPI & below Physical Exam Constitutional: + frail appearing Neck: normal visual inspection and trachea midline Respiratory: normal respiratory effort; no respiratory distress, no labored breathing and no cough Auscultation: + diminished lung sounds (bilateral bases ); no crackles, no rales, no rhonchi and no wheezes Cardiovascular: Rate/Rhythm: regular rate and regular rhythm Heart Sounds: normal S1, normal S2 and + murmur (+2/6 systolic murmur ) Vessels: no JVD Extremities: + edema (trace BLE) Skin: no rashes, warm and dry Psychiatric: A+Ox3, euthymic affect (repeats herself a lot s/t dementia ) Affect: + anxious affect Results & Data Vital Signs (Past 12 Hours) Vital Signs Temp Pulse Pulse Resp BP Pulse Ox O2 Del Method 01/17/24 06:20 36.4 C L 71 18 106/64 92 Room Air 01/16/24 22:51 72 20 92 01/16/24 21:47 71 O2 Flow Rate 01/17/24 06:20 01/16/24 22:51 2 01/16/24 21:47 Laboratory Results CBC 01/16/24 Range/Units 08:48 WBC 7.00 (4.8-10.8) K/ul RBC 3.35 L (4.20-5.40) M/uL Hgb 10.7 L (12.0-16.0) g/dl Hct 34.4 L (37.0-47.0) % Plt Count 88 L (130-400) K/uL Neut # (Auto) 5.34 (1.40-6.50) K/uL Lymph # (Auto) 0.63 L (1.20-3.40) K/uL [place] # (Auto) 0.94 H (0.11-0.59) K/uL Eos # (Auto) 0.01 (0.00-0.50) K/uL Baso # (Auto) 0.00 (0.00-0.20) K/uL Comprehensive Metabolic Panel 01/16/24 Range/Units 08:48 Sodium 138 (136-145) mmol/L Potassium 4.2 (3.5-5.1) mmol/L Chloride 100 (98-107) mmol/L Carbon Dioxide 28 (21-32) mmol/L BUN 61 H (6-23) mg/dl Creatinine 1.75 H (0.6-1.2) mg/dl Glucose 92 (70-99(Fasting)) mg/dl Calcium 8.7 (8.6-10.3) mg/dl Intake and Output 01/16/24 01/17/24 01/17/24 22:59 06:59 14:59 Other: Other Intake Source sips Weight 60.1 kg (3) Compression fracture of T11 vertebra Encounter type: subsequent encounter Fracture healing: with routine healing Qualified Code(s): S22.080D - Wedge compression fracture of T11-T12 vertebra, subsequent encounter for fracture with routine healing
[2024-01-17 10:00] LABS: Eosinophils # (auto) 0.01 K/uL (0.00-0.50); Eosinophils % (auto) 0.2 %; Hematocrit (blood only) 34.1 % (37.0-47.0); Hemoglobin 10.8 g/dl (12.0-16.0); Immature Granulocytes # (auto) 0.06 K/uL (0.01-0.20); Lymphocytes # (auto) 0.72 K/uL (1.20-3.40); Lymphocytes % (auto) 11.5 %; Mean Corpuscular Hgb Conc 31.7 g/dL (32.0-36.0); Mean Corpuscular Volume 101.2 fL (80.0-100.0); Monocytes # (auto) 0.86 K/uL (0.11-0.59); Monocytes % (auto) 13.8 %; Neutrophils # (auto) 4.59 K/uL (1.40-6.50); Neutrophils % (auto) 73.5 %; Platelet Count 89 K/uL (130-400); RDW Coefficient of Variation 16.7 % (11.5-14.5); RDW Standard Deviation 62.4 fL (36.4-46.3); Red Blood Count 3.37 M/uL (4.20-5.40); White Blood Count 6.24 K/ul (4.8-10.8)
[2024-01-17 10:13] LABS: BUN Creatinine Ratio 33.7 (10-20); Calcium 8.7 mg/dl (8.6-10.3); Creatinine Clr Calc Pharmacy 25.2 ml/min; Potassium 4.5 mmol/L (3.5-5.1)
--- NOTE | 2024-01-17 10:27 | XRay Report ---
XR chest 1V portable HISTORY: 73 years-old Female pleural effusion COMPARISON: 01/15/2024 TECHNIQUE: AP view of the chest FINDINGS: Cardiac silhouette is enlarged. Single lead right subclavian pacer/AICD. Cardiomegaly. Atherosclerosi s of the aorta. No pneumothorax identified. And interstitial coarsening again noted. Small pleural ef fusions with persistent bibasilar densities. Pulmonary vascular congestion. IMPRESSION: 1. Cardiomegaly with probable mild interstitial pulmonary edema. 2. Unchanged small pleural effusions with bibasilar opacities. ACT 112: Negative or not required by law. The above report was generated using voice recognition software. It may contain grammatical, syntax o r spelling errors. Electronically signed by: Sergei Marino M.D. 01/17/2024 10:26 AM
--- NOTE | 2024-01-17 12:11 | Communication Note ---
Date of Service: January 17, 2024 Brief Pall Med Note Called pt son, LMJAVIER req call back Thank you for allowing us to participate in the ongoing care of this patient. Please page with any additional concerns. Juliet Villar DNP Director, Palliative Medicine
--- NOTE | 2024-01-17 14:10 | Hospitalist Progress Note ---
Date of Service January 17, 2024 Assessment & Plan (1) Compression fracture of T11 vertebra: (2) CHF (congestive heart failure): (3) Pancytopenia: (4) Ischemic cardiomyopathy: (5) Chronic HFrEF (heart failure with reduced ejection fraction): (6) AICD (automatic cardioverter/defibrillator) present: (7) DM II (diabetes mellitus, type II), controlled: (8) Anxiety and depression: (9) Anemia: (10) Hypertension: Plan Assessment and plan: Acute hypoxic respiratory failure Acute on chronic systolic CHF Right-sided pleural effusion status post thoracentesis Present presented with hypoxia on arrival in the 80s, Chest x-ray shows bilateral pleural effusion right greater than left Patient underwent thoracentesis with removal of 900 cc of pleural fluid on right side Started on IV Lasix once a day as per cardiology Strict input and output Repeat chest x-ray on 01/16 shows interstitial pulm edema Will give her extra dose of IV Lasix 40 mg today Severe lower back pain T11 compression deformity: Patient presented with similar symptoms in the end of December. Found to have T11 compression fracture; evaluated by orthospine at that time who recommended TLSO brace and repeat x-ray in 2 to [address] on admission shows acute 2 column fracture on T11 vertebral body with 33% loss of vertebral body height. Pain management and orthospine consulted; Recommend TLSO brace. Nonoperative management. Follow-up x-ray in 2 to 4 weeks DM2: Poor appetite, sugar in the 200s, SSI/4 times daily BGM/CTM pharmacy on board Hx HTN/CAD/HLD/valvular heart disease: Continue statin/isosorbide/metoprolol Chronic pancytopenia: Heparin subcu every 12 hours, monitor platelets Mild dementia: Avoid medications that can worsen mentation such as benzos Redirect as able Patient is a DNR/DNI DVT prophylaxis: Heparin subcu Dispositionpalliative consulted for goals of care discussion. Possible discharge in next few days on hospice care at home. Please note the above document was generated using voice recognition software. It may contain grammatical, syntax or spelling errors. Any formal questions or concerns about the content, text or information contained within the body of this dictation should be directly addressed to the provider for clarification Admission and Anticipated Discharge Date Admission Date: January 14, 2024 Subjective Seen and examined at bedside. She is comfortable; not in distress She denies fever, chills, chest pain or shortness of breath Continues to report mid back pain Review of Systems Review of Systems: All systems reviewed & are unremarkable except as noted in Subjective Physical Exam Physical Exam: Constitutional: Alert oriented x 3; not in distress. Respiratory: Bilateral vesicular breath sound. Decreased breath sound on right lower lung field. Cardiovascular: RRR, no murmur, no edema Vessels: no JVD or carotid bruit Chest: normal inspection of chest Abdomen: normal bowel sounds, soft, nontender, no hepatosplenomegaly Musculoskeletal: Tenderness in mid-back Neurologic: PERRL, EOMI, accommodation nl, no face palsy, no dysarthria CN's II- XI intact bilaterally and moves all extremities Psychiatric: A+Ox3, euthymic affect Results & Data Results & Data Vital Signs (Past 12 Hours) Vital Signs Temp Pulse Resp BP Pulse Ox O2 Del Method 01/17/24 12:02 36.6 C 76 19 131/73 93 Room Air 01/17/24 09:04 36.8 C 70 19 126/66 91 Room Air 01/17/24 06:20 36.4 C L 71 18 106/64 92 Room Air (1) Compression fracture of T11 vertebra Encounter type: subsequent encounter Fracture healing: with routine healing Qualified Code(s): S22.080D - Wedge compression fracture of T11-T12 vertebra, subsequent encounter for fracture with routine healing (2) CHF (congestive heart failure) Heart failure chronicity: acute Heart failure type: unspecified Qualified Code(s): I50.9 - Heart failure, unspecified
--- NOTE | 2024-01-17 14:15 | Electrocardiogram Report ---
Test Reason : Blood Pressure : */* mmHG Vent. Rate : 66 BPM Atrial Rate : 66 BPM P-R Int : 196 ms QRS Dur : 106 ms QT Int : 472 ms P-R-T Axes : 63 -46 262 degrees QTcB Int : 494 ms Normal sinus rhythm Possible Left atrial enlargement Left axis deviation Incomplete left bundle block Prolonged QT Abnormal ECG When compared with ECG of 14-Jan-2024 19:33, QRS axis Shifted left Confirmed by Angel Sexton ([id number]) on 01/17/2024 2:14:50 PM Referred By: REFERRED SELF Confirmed By: Angel Sexton
[2024-01-17] MEDS: FUROSEMIDE 40 MG/4 ML VIAL IV ONE (14:59)
[2024-01-18] MEDS: FUROSEMIDE 40 MG/4 ML VIAL IV SCH (09:03)
--- NOTE | 2024-01-18 14:07 | Hospitalist Progress Note ---
Date of Service January 18, 2024 Assessment & Plan (1) Compression fracture of T11 vertebra: (2) CHF (congestive heart failure): (3) Pancytopenia: (4) Ischemic cardiomyopathy: (5) Chronic HFrEF (heart failure with reduced ejection fraction): (6) AICD (automatic cardioverter/defibrillator) present: (7) DM II (diabetes mellitus, type II), controlled: (8) Anxiety and depression: (9) Anemia: (10) Hypertension: Plan Assessment and plan: Acute hypoxic respiratory failure Acute on chronic systolic CHF Right-sided pleural effusion status post thoracentesis Present presented with hypoxia on arrival in the 80s, Chest x-ray on admission bilateral pleural effusion right greater than left Patient underwent thoracentesis with removal of 900 cc of pleural fluid on right side Continue iv lasix, strict I/O. Severe lower back pain T11 compression deformity: Patient presented with similar symptoms in the end of December. Found to have T11 compression fracture; evaluated by orthospine at that time who recommended TLSO brace and repeat x-ray in 2 to [address] on admission shows acute 2 column fracture on T11 vertebral body with 33% loss of vertebral body height. Pain management and orthospine consulted; Recommend TLSO brace. Nonoperative management. Follow-up x-ray in 2 to 4 weeks DM2: Poor appetite, sugar in the 200s, SSI/4 times daily BGM/CTM pharmacy on board Hx HTN/CAD/HLD/valvular heart disease: Continue statin/isosorbide/metoprolol Chronic pancytopenia: heparin on hold due to thrombocytopenia Mild dementia: Avoid medications that can worsen mentation such as benzos Redirect as able Patient is a DNR/DNI DVT prophylaxis: SCDs. Dispositionpalliative consulted for goals of care discussion. Possible discharge in next few days on hospice care at home. Please note the above document was generated using voice recognition software. It may contain grammatical, syntax or spelling errors. Any formal questions or concerns about the content, text or information contained within the body of this dictation should be directly addressed to the provider for clarification Admission and Anticipated Discharge Date Admission Date: January 14, 2024 Subjective Patient seen and examined at bedside. Comfortable; not in distress. Denies fever, chills, chest pain, shortness of breath, abdominal pain or urinary symptoms. No significant overnight events Review of Systems Review of Systems: All systems reviewed & are unremarkable except as noted in Subjective Physical Exam Physical Exam: Constitutional: Alert oriented x 3; not in distress. Respiratory: Bilateral vesicular breath sound. Decreased breath sound on right lower lung field. Cardiovascular: RRR, no murmur, no edema Vessels: no JVD or carotid bruit Chest: normal inspection of chest Abdomen: normal bowel sounds, soft, nontender, no hepatosplenomegaly Musculoskeletal: Tenderness in mid-back Neurologic: PERRL, EOMI, accommodation nl, no face palsy, no dysarthria CN's II- XI intact bilaterally and moves all extremities Psychiatric: A+Ox3, euthymic affect Results & Data Results & Data Vital Signs (Past 12 Hours) Vital Signs Temp Pulse Pulse Resp BP Pulse Ox O2 Del Method 01/18/24 11:22 36.8 C 77 17 119/54 L 94 Room Air 01/18/24 08:40 71 01/18/24 08:40 Room Air 01/18/24 07:37 37.1 C 72 17 121/69 93 Room Air 01/18/24 03:02 77 01/18/24 02:32 36.6 C 61 16 149/69 H 92 Room Air (1) Compression fracture of T11 vertebra Encounter type: subsequent encounter Fracture healing: with routine healing Qualified Code(s): S22.080D - Wedge compression fracture of T11-T12 vertebra, subsequent encounter for fracture with routine healing (2) CHF (congestive heart failure) Heart failure chronicity: acute Heart failure type: unspecified Qualified Code(s): I50.9 - Heart failure, unspecified
--- NOTE | 2024-01-19 13:25 | Hospitalist Progress Note ---
Date of Service January 19, 2024 Assessment & Plan (1) Compression fracture of T11 vertebra: (2) CHF (congestive heart failure): (3) Pancytopenia: (4) Ischemic cardiomyopathy: (5) Chronic HFrEF (heart failure with reduced ejection fraction): (6) AICD (automatic cardioverter/defibrillator) present: (7) DM II (diabetes mellitus, type II), controlled: (8) Anxiety and depression: (9) Anemia: (10) Hypertension: Plan Assessment and plan: Acute hypoxic respiratory failure Acute on chronic systolic CHF Right-sided pleural effusion status post thoracentesis Present presented with hypoxia on arrival in the 80s, Chest x-ray on admission bilateral pleural effusion right greater than left Patient underwent thoracentesis with removal of 900 cc of pleural fluid on right side underwent diuresis with iv lasix; changed to PO lasix Severe lower back pain T11 compression deformity: Patient presented with similar symptoms in the end of December. Found to have T11 compression fracture; evaluated by orthospine at that time who recommended TLSO brace and repeat x-ray in 2 to [address] on admission shows acute 2 column fracture on T11 vertebral body with 33% loss of vertebral body height. Pain management and orthospine consulted; Recommend TLSO brace. Nonoperative management. Follow-up x-ray in 2 to 4 weeks DM2: Poor appetite, s, SSI/4 times daily BGM/CTM pharmacy on board Hx HTN/CAD/HLD/valvular heart disease: Continue statin/isosorbide/metoprolol Chronic pancytopenia: heparin on hold due to thrombocytopenia Mild dementia: Avoid medications that can worsen mentation such as benzos Redirect as able Patient is a DNR/DNI DVT prophylaxis: SCDs. DispositionDischarge tomorrow am on hospice care Please note the above document was generated using voice recognition software. It may contain grammatical, syntax or spelling errors. Any formal questions or concerns about the content, text or information contained within the body of this dictation should be directly addressed to the provider for clarification Admission and Anticipated Discharge Date Admission Date: January 14, 2024 Subjective Patient seen and examined at bedside She is comfortable; not in distress. Reports that she wants to go home No significant events overnight Review of Systems Review of Systems: All systems reviewed & are unremarkable except as noted in Subjective Physical Exam Physical Exam: Constitutional: Alert oriented x 3; not in distress. Respiratory: Bilateral vesicular breath sound. Decreased breath sound on right lower lung field. Cardiovascular: RRR, no murmur, no edema Vessels: no JVD or carotid bruit Chest: normal inspection of chest Abdomen: normal bowel sounds, soft, nontender, no hepatosplenomegaly Musculoskeletal: Tenderness in mid-back Neurologic: PERRL, EOMI, accommodation nl, no face palsy, no dysarthria CN's II- XI intact bilaterally and moves all extremities Psychiatric: A+Ox3, euthymic affect Results & Data Results & Data Vital Signs (Past 12 Hours) Vital Signs Temp Pulse Resp BP Pulse Ox O2 Del Method 01/19/24 11:26 36.7 C 75 18 128/78 92 Room Air 01/19/24 07:41 36.8 C 76 18 127/64 92 Room Air 01/19/24 02:11 36.8 C 70 16 126/68 90 Room Air (1) Compression fracture of T11 vertebra Encounter type: subsequent encounter Fracture healing: with routine healing Qualified Code(s): S22.080D - Wedge compression fracture of T11-T12 vertebra, subsequent encounter for fracture with routine healing (2) CHF (congestive heart failure) Heart failure chronicity: acute Heart failure type: unspecified Qualified Code(s): I50.9 - Heart failure, unspecified
[2024-01-20] MEDS: FUROSEMIDE 40 MG TAB PO SCH (07:58)
[2024-01-20 09:41] VITALS: PULSE 68
[2024-01-20 11:52] VITALS: BP 166/78; RESP 16; TEMP 98.6; O2SAT 98
--- NOTE | 2024-01-20 13:21 | Discharge Summary ---
Date of Service January 20, 2024 Admission HPI Per Admitting Provider The patient is a 73-year-old female with past medical history of chronic systolic heart failure secondary to ischemic cardiomyopathy, EF 15-20%, s/p ICD, CAD, PAD, valvular heart disease, moderate to severe MR/TR, HTN, HLD, JEREMIE, DM2 on insulin, CKD, baseline creatinine 1.72, chronic pancytopenia, mood disorder, mild dementia who presents to the ED today on 01/14/2024 with complaints of shortness of breath and multiple nonspecific complaints including headache, intermittent abdominal pain, constipation, lower back pain. Spoke with the patient's son, Dandre, also cable former who reports that the patient has a 24-hour aide that stays with her and she is never alone. She has not had falls in the past few months. He reports that she is unable to sit up which she was able to do over the past few months. Reports that she complains of her pain worsening over the past 5-6 days. Also reports poor appetite and a blood sugar in the 400s on 01/13/2024 after a light lunch. Patient's son also reports that the jessie ent was seen by cardiology last week and her torsemide was decreased from 20 mg to 10 mg. He also noted some worsening shortness of breath over the past few days. On exam, the patient reports lower back pain and just not feeling well. Also reports increasing shortness of breath that is improved with oxygen. On arrival to the ED, labs are remarkable for hemoglobin 9.8 hematocrit 31.6, platelets 93chronic BUN 66, creatinine 2, glucose 248, total bili 1.3, Trope 39, BNP over 4700 UA fairly unremarkable Knee x-ray negative for fracture Pelvics x-ray negative Head CT negative Femur x-ray left negative, cervical spine CT negative for acute fractures Chest x-ray showed cardiomegaly and vascular congestion, right greater than left layering pleural effusions with bibasilar opacities The patient is on 2 L of oxygen and on exam is in no apparent distress. The patient denies any fever/chills/chest pain. Did report some shortness of breath and abdominal pain. Denies any diarrhea. Last bowel movement was 2 days ago. Denies any nausea/vomiting. Patient is a poor historian Abdomen/pelvis CT remarkable for 1. Significantly suboptimal examination without IV contrast. There is also streak and motion artifact. 2. There is no evidence of solid organ injury in the abdomen or pelvis on this unenhanced examination. 3. Again seen is a subacute type burst compression fracture of T11. There is mild/moderate loss of height, with no significant retropulsion of fragments. 4. Fracture involves the posterior elements of T11 extending through both pedicles, as well as the spinous process of T10. This fracture is likely unstable. 5. No additional acute fracture is identified. 6. Cardiomegaly and cardiac pacemaker. 7. There is evidence of fluid overload with a small volume of pelvic ascites, right larger than left pleural effusions with dependent consolidation, and anasarca of the body wall. 8. The gallbladder is contracted and the wall appears thickened and edematous. This is similar in appearance to previous. Correlate with clinical laboratory findings. 9. Additional findings as above Admission Exam Per Admitting Provider VS noted and reviewed oriented x 3 , not in distress, speaks in sentences with no effort nor accessory muscle use (+) dry oral mucosa, mild JVD normal rate, regular rhythm, no murmurs (+) decreased breath sounds R base, (+) mild rales at the bases, no wheezing (+) mild hematoma RUQ, non distended, soft, (+) mild tenderness RLQ no bipedal edema, erythema, warmth (+) multiple areas of small hematoma, skin tears BL lower extremities no gross focal neuro deficits Principal Diagnosis Acute hypoxic respiratory failure Acute on chronic systolic CHF Right-sided pleural effusion status post thoracentesis Severe lower back pain T11 compression deformity Discharge Exam Constitutional: Alert oriented x 3; not in distress. Respiratory: Bilateral vesicular breath sound. Decreased breath sound on right lower lung field. Cardiovascular: RRR, no murmur, no edema Vessels: no JVD or carotid bruit Chest: normal inspection of chest Abdomen: normal bowel sounds, soft, nontender, no hepatosplenomegaly Musculoskeletal: Tenderness in mid-back Neurologic: PERRL, EOMI, accommodation nl, no face palsy, no dysarthria CN's II- XI intact bilaterally and moves all extremities Psychiatric: A+Ox3, euthymic affect Discharge Data Allergies Allergy/AdvReac Type Severity Reaction Status Date / Time lisinopril AdvReac Intermediate Cough Verified 12/31/23 10:44 Consultations 01/14/24 18:37 ED Decision to Admit Stat 01/14/24 20:13 Consult Pain Management Routine 01/14/24 20:39 Consult Pulmonology Routine 01/15/24 08:03 Consult Orthopedic Spine Surgery Routine 01/16/24 12:54 Consult Palliative Care Routine Ordered Studies 01/14/24 16:24 CT abd pelvis wo con Stat CT cervical spine wo con Stat CT head/brain wo con Stat 01/14/24 20:10 CT lumbar spine wo con Stat 01/15/24 07:27 IR thoracentesis wo tube US Routine Hospital Course (1) Compression fracture of T11 vertebra: (2) CHF (congestive heart failure): (3) Pancytopenia: (4) Ischemic cardiomyopathy: (5) Chronic HFrEF (heart failure with reduced ejection fraction): (6) AICD (automatic cardioverter/defibrillator) present: (7) DM II (diabetes mellitus, type II), controlled: (8) Anxiety and depression: (9) Anemia: (10) Hypertension: Plan Assessment and plan: Acute hypoxic respiratory failure Acute on chronic systolic CHF Right-sided pleural effusion status post thoracentesis Present presented with hypoxia on arrival in the 80s, Chest x-ray on admission bilateral pleural effusion right greater than left Patient underwent thoracentesis with removal of 900 cc of pleural fluid on right side as per pulmonology underwent diuresis with iv lasix with cardiology assistance. Patient was at room air at the time of the discharge. She was placed on Lasix 40 mg once a day at discharge. Severe lower back pain T11 compression deformity: Patient presented with similar symptoms in the end of December. Found to have T11 compression fracture; evaluated by orthospine at that time who recommended TLSO brace and repeat x-ray in 2 to [address] on admission shows acute 2 column fracture on T11 vertebral body with 33% loss of vertebral body height. Pain management and orthospine consulted; Recommend TLSO brace. Nonoperative management. Follow-up x-ray in 2 to 4 weeks Patient discharged home with home hospice. Please note the above document was generated using voice recognition software. It may contain grammatical, syntax or spelling errors. Any formal questions or concerns about the content, text or information contained within the body of this dictation should be directly addressed to the provider for clarification Total Time Total Time Spent Total Time Spent (In Minutes): 34 Total Time Includes: Examination of the Patient, Discharge Planning, Medication Reconciliation, Communication With Other Providers and Other Discharge Plan Discharge Items Patient Disposition: Home - Self-Care Reason For Visit: ABDOMINAL PAIN Activity: Resume your previous activity Non-emergency contact: Primary Care Provider Call non-emergency contact if: you have any medication questions and your symptoms worsen Follow-up/Referrals: Melissa Tovar MD [Primary Care Provider] - ( ) Diet: Regular Addtl Attending Provider Instructions: You were admitted to the hospital with shortness of breath. You underwent evaluation by pulmonology and cardiology during the hospitalization. Cardiology recommends that you stop torsemide 10 mg. You are prescribed Lasix 40 mg once a day to be taken. Pending Studies at Discharge: No Stand-Alone Forms: [facility] [employer], Smoking Cessation Medications and DC Order Prescriptions: New furosemide [Lasix] 40 mg tablet 40 mg PO DAILY Qty: 30 0RF Continued sertraline 100 mg tablet 150 mg PO HS aspirin 81 mg tablet,delayed release (DR/EC) 81 mg PO DAILY gabapentin 100 mg capsule 100 mg PO TID insulin glargine [Basaglar KwikPen U-100 Insulin] 100 unit/mL (3 mL) insulin pen 15 unit SUBCUT HS isosorbide dinitrate 10 mg Tablet 10 mg PO BID@0700,1200 30 Days Qty: 60 2RF acetaminophen [Tylenol] 325 mg Tablet 650 mg PO Q4H PRN (Reason: Pain) ketoconazole 2 % Shampoo 1 ea TOPICAL DIRECTED PRN (Reason: OPEN SORES ON HEAD, UNTIL HEALED) Rx Instructions: 3 X WEEKLY nitroglycerin [Nitrostat] 0.4 mg Tablet, Sublingual 0.4 mg sublingual DIRECTED PRN (Reason: Chest Pain) ketoconazole 2 % Cream 1 applic TOPICAL BID PRN (Reason: FACIAL RASH WHEN FLARES) cranberry 500 mg Capsule 500 mg PO DAILY cholecalciferol (vitamin D3) [Vitamin D3] 25 mcg (1,000 unit) Capsule 25 mcg PO DAILY rosuvastatin 10 mg tablet 10 mg PO QAM Trulicity 0.75 mg/0.5 mL pen injector 0.75 mg SUBCUT WK Rx Instructions: PER EXT MED HX. metoprolol succinate 50 mg tablet extended release 24 hr 50 mg PO BID mirtazapine 15 mg tablet 15 mg PO HS diclofenac sodium [Voltaren Arthritis Pain] 1 % Gel 2 g EXT Q6H PRN (Reason: mid-low back pain) Qty: 100 0RF oxycodone 5 mg tablet 5 mg PO Q6 PRN (Reason: SEVERE PAIN 7-10) Discontinued torsemide 10 mg tablet 10 mg PO QAM Qty: 30 0RF Discharge Orders: Discharge Order (Routine); Ordered 01/20/24 Ordered By: Kota Garzon Admission Data Admit Date/Time: 01/14/24 19:03 Attending Provider: Kota Garzon Admit Provider: Kenneth Valle Primary Care Provider: Melissa Tovar Other Providers: Joao Kothari; Marsha Chanel; Nakul Donahue; Himanshu Vargas; Jeramie Leiva [facility]; Elma Villar Other Interventions: Discharge Summary Assessment (RN) Last Done: 01/20/24 09:40
== END 2024-01-20 12:08 | disposition home or self-care (01) | DRG 291 ==
LOC: ED 16:01 → 4W 19:03 → SUATTDRO 19:03 → 4W 20:01